=== PATIENT | male | born 1960 | race Caucasian/White ===

== ENCOUNTER → 2017-02-02 | Outpatient (CLI) | payer MEDICARE, OTHER ==
[2017-02-02 12:10] LABS: Basophils % (A) 1 %; CH 31.4; CHCM 35.3; Eosinophils # (A) 0.3 k/uL (0-0.7); Eosinophils % (A) 4 %; HCT 46.1 % (39.0-53.0); HDW 3.05; HGB 15.6 gm/dL (13.0-17.5); Luc # (Auto) 0.16; Luc % (Auto) 3; Lymphocytes # (A) 2.6 k/uL (1.0-4.8); Lymphocytes % (A) 40 %; MCH 30.2 pg (25.0-35.0); MCHC 33.7 g/dL (31.0-37.0); MCV 89.6 fL (80.0-100.0); Mean Platelet Volume 8.6; Monocytes # (A) 0.4 k/uL (0-1.0); Monocytes % (A) 6 %; Neutrophils # (A) 3.1 k/uL (1.3-7.7); Neutrophils % (A) 48 %; RBC 5.15 m/uL (4.30-5.90); WBC 6.5 k/uL (3.8-10.6); WBC (Perox) 6.37
[2017-02-02 13:29] LABS: ALT 46 U/L (21-72); AST 31 U/L (17-59); Alkaline Phosphatase 80 U/L (38-126); Anion Gap 13 mmol/L; Blood Urea Nitrogen 25 mg/dL (9-20); Calcium 9.5 mg/dL (8.4-10.2); Carbon Dioxide 29 mmol/L (22-30); Chloride 103 mmol/L (98-107); Glucose 124 mg/dL (74-99); Non-African American GFR(MDRD) >60 (>60 ml/min/1.73 sqM); Sodium 145 mmol/L (137-145); Total Bilirubin 0.4 mg/dL (0.2-1.3)
== END | disposition home or self-care (01) ==
LOC: LABWHC1 11:30
PROVIDERS: ATTEND Internal Medicine Infectious Disease
DX: B20 Human immunodeficiency virus [HIV] disease (principal)
CPT/HCPCS: 36415; 80053; 85025; 86360; 87536

== ENCOUNTER → 2017-06-01 | Outpatient (CLI) | payer MEDICARE, OTHER ==
[2017-06-01 11:47] LABS: Basophils % (A) 1 %; CH 30.1; CHCM 34.9; Eosinophils # (A) 0.2 k/uL (0-0.7); Eosinophils % (A) 3 %; HCT 42.9 % (39.0-53.0); HDW 3.12; HGB 14.5 gm/dL (13.0-17.5); Luc # (Auto) 0.17; Luc % (Auto) 3; Lymphocytes # (A) 1.6 k/uL (1.0-4.8); Lymphocytes % (A) 33 %; MCH 29.2 pg (25.0-35.0); MCHC 33.8 g/dL (31.0-37.0); MCV 86.5 fL (80.0-100.0); Mean Platelet Volume 7.5; Monocytes # (A) 0.4 k/uL (0-1.0); Monocytes % (A) 8 %; Neutrophils # (A) 2.5 k/uL (1.3-7.7); Neutrophils % (A) 53 %; RBC 4.96 m/uL (4.30-5.90); RDW 13.3 % (11.5-15.5); WBC 4.8 k/uL (3.8-10.6); WBC (Perox) 4.69
[2017-06-01 12:03] LABS: Potassium 5.2 mmol/L (3.5-5.1); Total Bilirubin 0.3 mg/dL (0.2-1.3); Total Protein 7.7 g/dL (6.3-8.2); Uric Acid 7.7 mg/dL (3.5-8.5)
[2017-06-04 14:52] LABS: LOG HIV Copies/mL 3.38 (<1.60)
== END | disposition home or self-care (01) ==
LOC: LABWHC1 10:58
PROVIDERS: ATTEND Internal Medicine Infectious Disease
DX: B20 Human immunodeficiency virus [HIV] disease (principal)
CPT/HCPCS: 36415; 80053; 84550; 85025; 86360; 87536

== ENCOUNTER 2017-09-06 19:36 | Emergency (ER) | payer MEDICARE, OTHER ==
[2017-09-06 19:48] VITALS: RESP 18; TEMP 97.3
[2017-09-06] MEDS ORDERED: ONDANSETRON 4 MG/2 ML VIAL IVP STA (20:26)
[2017-09-06] MEDS ORDERED: HYDROcodone/APAP 10-325MG 1 EACH TAB PO ONE (20:30)
--- NOTE | 2017-09-06 20:43 | ED ---
Fall HPI - General Chief Complaint: Fall Stated Complaint: Fall/head injury Time Seen by Provider: 09/06/17 19:50 Source: patient Mode of arrival: ambulatory - History of Present Illness Initial Comments: 57-year-old male, HIV positive last CD4 count 500 and viral load 600, presenting after a fall 1 week prior. Per patient he missed the toilet sitting down and ended up between that and a wall. He struck his lumbar spine as well as the lateral aspects of his bilateral fibs. He did hit his head but denies LOC or blood thinner usage. Denies neck pain. Since the fall he has been falling to the left when ambulating, having extreme bilateral rib pain making it difficult to sleep, as well as midline lumbar back pain worse with ambulating and not alleviated by anything. He admits to bilateral lower extremity weakness. He denies saddle anesthesia, loss of bowel or bladder control, or constipation/urinary retention. He states he also has had worsening chronic bilateral upper extremity tremors. Patient states he has a long history of chronic back pain for which he is to be treated with narcotics. Patient states he recently stopped taking all narcotics and has been trying to control his back pain with Motrin without relief. - Related Data Home Medications Medication Instructions Recorded Confirmed ARIPiprazole [Abilify] 2 mg PO HS 09/06/17 09/06/17 Betamethasone Valerate 1 applic TOPICAL DAILY PRN 09/06/17 09/06/17 [Betamethasone Valerate 0.1%] Bimatoprost [Lumigan .01% Ophth 1 drop BOTH EYES HS 09/06/17 09/06/17 Soln] Cetirizine HCl [Zyrtec] 10 mg PO HS 09/06/17 09/06/17 Diazepam 10 mg PO HS PRN 09/06/17 09/06/17 Diphenox-Atrop 2.5-0.025 mg 1 tab PO QID PRN 09/06/17 09/06/17 [Lomotil] Doxazosin [Cardura] 1 mg PO HS 09/06/17 09/06/17 Elviteg/Chasidy/Emtric/Tenofo Dis 1 tab PO HS 09/06/17 09/06/17 [Stribild Tablet] Furosemide [Lasix] 40 mg PO HS 09/06/17 09/06/17 Lisinopril [Zestril] 10 mg PO HS 09/06/17 09/06/17 Ondansetron HCl [Zofran] 8 mg PO BID PRN 09/06/17 09/06/17 diphenhydrAMINE HCL [Benadryl] 25 mg PO HS PRN 09/06/17 09/06/17 traZODone HCL [Desyrel] 200 mg PO BID 09/06/17 09/06/17 Previous Rx's Medication Instructions Recorded HYDROcodone/APAP 10-325MG [Fleming 1 tab PO Q6H PRN #12 tab 09/06/17 10-325] Allergies Allergy/AdvReac Type Severity Reaction Status Date / Time abacavir [From Ziagen] Allergy Anaphylaxis Verified 09/06/17 20:31 efavirenz [From Sustiva] Allergy Anaphylaxis Verified 09/06/17 20:31 hydrocodone Allergy Rapid Verified 09/06/17 20:31 [From Hysingla ER] Heart Rate sulfamethoxazole Allergy Abdominal Verified 09/06/17 20:31 [From Bactrim] Pain trimethoprim [From Bactrim] Allergy Abdominal Verified 09/06/17 20:31 Pain Review of Systems ROS Statement: Those systems with pertinent positive or pertinent negative responses have been documented in the HPI. Review of Systems Constitutional: Denies fever, chills Eyes: Denies change in vision, Denies pain Ears, nose, mouth, throat: Denies headaches, Denies sore throat Cardiovascular: Denies chest pain. Denies palpitations Respiratory: Denies shortness of breath, Denies cough Gastrointestinal: Denies abdominal pain. Denies nausea, vomiting, diarrhea. Genitourinary: Denies hematuria, Denies infections Musculoskeletal: Positive for rib pain, back pain. Integumentary: Denies rash Neurological: Positive for COBOS, weakness, tremor Psychiatric: Denies anxiety, Denies depression Hematologic/Lymphatic: Denies easy bleeding or bruising ROS Other: All systems not noted in ROS Statement are negative. Past Medical History Past Medical History: Asthma, Fibromyalgia, Hypertension, Osteoarthritis (OA), Prostate Disorder Additional Past Medical History / Comment(s): BPH, HIV, Tachycardia History of Any Multi-Drug Resistant Organisms: None Reported Past Surgical History: Hernia Repair Additional Past Surgical History / Comment(s): Mitral valve replacement, Past Psychological History: Anxiety Smoking Status: Light tobacco smoker Past Alcohol Use History: Rare Past Drug Use History: Marijuana General Exam - General Exam Comments Initial Comments: General: Awake, alert, No acute Distress HENT: Normocephalic. Atraumatic. Tenderness to palpation on left parietal region of head. Eyes: PERRL. EOMI. No scleral icterus. No injected conjunctiva Neck: Full ROM. No midline tenderness to palpation Chest/Lungs: Clear to auscultation bilaterally. No wheezing, rhonchi, or rales Cardiac: Regular rate, rhythm. No murmurs or rubs Abdomen/GI: Soft, nontender, nondistended. Ventral hernia. No rebound, guarding , or rigidity. Musculoskeletal: Full ROM. TTP bilateral ribs on the lateral lower aspects. No TTP thoracic spine. TTP midline lumbar spine and sacroiliac region Skin: Warm, dry, intact Neurologic: A/Ox3. BUE tremors. 1+ patellar reflexes bilaterally. No muscle atrophy or weakness. No finger to nose coordination deficit or rapid- alternating movement deficit. Antalgic gait. Limitations: no limitations Course Vital Signs 09/06/17 19:38 Temperature 97.3 F L Pulse Rate 82 Respiratory 18 Rate Blood Pressure 159/94 O2 Sat by Pulse 96 Oximetry Medical Decision Making - Medical Decision Making 57 yoM presenting one week after fall. On initial exam the patient is awake, alert, and in no acute distress. VSS. Discussed with patient the use of narcotic medication to control his pain since he states he "detoxed" from chronic narcotics prior. He denied history of abuse, but states he no longer wanted to be on them because they were not helping his chronic back pain. He was agreeable to being given narcotics while in the department. He states prior to the fall he was able to ambulate without difficulty. MAPS of patient show no narcotic or benzo rxs since the end of July. Patient's laboratory workup revealed thrombocytopenia but is otherwise unremarkable. CT head showed no acute process. CT lumbar spine shows patient's known degenerative disc disease but no acute fracture. CXR is negative for fracture as well. Discussed with the patient admission for his back pain versus outpatient follow up with his PCP and the new spinal specialist he plans on seeing. He would like at this time to follow up outpatient. Will given patient short course of Fleming for his pain. He has no symptoms concerning for cauda equina. No further emergent workup indicated. The patient was given return to ED instructions. They were instructed to follow up with their primary care provider. Stable for discharge at this time. - Lab Data Result diagrams: 09/06/17 20:45 09/06/17 20:45 Lab Results 09/06/17 09/06/17 Range/Units 20:45 20:45 WBC 5.1 (3.8-10.6) k/uL RBC 4.31 (4.30-5.90) m/uL Hgb 13.5 (13.0-17.5) gm/dL Hct 37.6 L (39.0-53.0) % MCV 87.3 (80.0-100.0) fL MCH 31.3 (25.0-35.0) pg MCHC 35.8 (31.0-37.0) g/dL RDW 15.6 H (11.5-15.5) % Plt Count 148 L (150-450) k/uL Neutrophils % 63 % Lymphocytes % 25 % Monocytes % 6 % Eosinophils % 3 % Basophils % 1 % Neutrophils # 3.2 (1.3-7.7) k/uL Lymphocytes # 1.3 (1.0-4.8) k/uL Monocytes # 0.3 (0-1.0) k/uL Eosinophils # 0.2 (0-0.7) k/uL Basophils # 0.0 (0-0.2) k/uL Hyperchromasia Slight Poikilocytosis Slight Sodium 145 (137-145) mmol/L Potassium 4.2 (3.5-5.1) mmol/L Chloride 105 (98-107) mmol/L Carbon Dioxide 32 H (22-30) mmol/L Anion Gap 8 mmol/L BUN 18 (9-20) mg/dL Creatinine 0.88 (0.66-1.25) mg/dL Est GFR (CKD-EPI)AfAm >90 (>60 ml/min/1.73 sqM) Est GFR (CKD-EPI)NonAf >90 (>60 ml/min/1.73 sqM) Glucose 101 H (74-99) mg/dL Calcium 9.0 (8.4-10.2) mg/dL Disposition Clinical Impression: Thrombocytopenia, Fall, Back pain, Rib pain on right side Disposition: HOME SELF-CARE Instructions: Acute Low Back Pain (ED), Thrombocytopenia (ED), Rib Contusion ( ED) Additional Instructions: Return to ED if weakness in lower extremities, loss of bowel or bladder control OR inability to urinate or defecate. Prescriptions: HYDROcodone/APAP 10-325MG [Fleming 10-325] 1 tab PO Q6H PRN #12 tab PRN Reason: Pain Referrals: Girma Pino MD [Primary Care Provider] - 1-2 days
[2017-09-06 21:03] LABS: Basophils % (A) 1 %; Eosinophils # (A) 0.2 k/uL (0-0.7); Eosinophils % (A) 3 %; HCT 37.6 % (39.0-53.0); HGB 13.5 gm/dL (13.0-17.5); Hyperchromasia Slight; Lymphocytes # (A) 1.3 k/uL (1.0-4.8); Lymphocytes % (A) 25 %; MCH 31.3 pg (25.0-35.0); MCHC 35.8 g/dL (31.0-37.0); MCV 87.3 fL (80.0-100.0); Mean Platelet Volume 8.2; Monocytes # (A) 0.3 k/uL (0-1.0); Monocytes % (A) 6 %; Neutrophils # (A) 3.2 k/uL (1.3-7.7); Neutrophils % (A) 63 %; Platelet Count 148 k/uL (150-450); Poikilocytosis Slight; RBC 4.31 m/uL (4.30-5.90); RDW 15.6 % (11.5-15.5); WBC 5.1 k/uL (3.8-10.6)
[2017-09-06 21:14] LABS: Anion Gap 8 mmol/L; Blood Urea Nitrogen 18 mg/dL (9-20); Carbon Dioxide 32 mmol/L (22-30); Chloride 105 mmol/L (98-107); Glucose 101 mg/dL (74-99); Potassium 4.2 mmol/L (3.5-5.1); Sodium 145 mmol/L (137-145)
--- NOTE | 2017-09-06 21:56 | CT ---
EXAMINATION TYPE: CT brain wo con DATE OF EXAM: 09/06/2017 COMPARISON: CT brain 02/25/2011 HISTORY: Fall, headache CT DLP: 1097 mGycm Automated exposure control for dose reduction was used. Helical acquisition through the brain FINDINGS: There is no hemorrhage or hydrocephalus. Cortical atrophy is stable. Calvarium is intact. Paranasal s inuses and mastoid air cells are within normal limits. Orbits are symmetric. IMPRESSION: NO ACUTE ABNORMALITY
--- NOTE | 2017-09-06 22:00 | CT ---
EXAMINATION TYPE: CT lumbar spine wo con DATE OF EXAM: 09/06/2017 COMPARISON: NONE HISTORY: Low back pain. CT DLP: 1030 mGycm Automated exposure control for dose reduction was used. An unenhanced CT of the lumbar spine was performed. Bone and soft tissue window settings are submitt ed as well as coronal and sagittal reconstructions. FINDINGS: Lumbar vertebral bodies show preserved height, alignment, and bone mineralization. L1-L2: Normal disc space height. No disc herniation protrusion or central stenosis. No facet joint arthropathy. No evidence for foraminal encroachment. L2-L3: Normal disc space height. No disc herniation protrusion or central stenosis. No facet joint arthropathy. No evidence for foraminal encroachment. L3-L4: Posterior extension of endplate disc complex causes anterolateral mass effect on the thecal sa c, no significant central canal stenosis. Circumferential extension of endplate disc complex causes s ome left-sided foraminal encroachment. There is facet arthropathy. L4-L5: Posterior extension of endplate disc complex causes mild anterior mass effect on the thecal sa c, and lateral extension of endplate disc complex encroaches somewhat on the neural foramina greater on the right. There is some facet arthropathy. L5-S1: Normal disc space height. No disc herniation protrusion or central stenosis. No facet joint arthropathy. No evidence for foraminal encroachment. IMPRESSION: No paraspinal masses are identified. Degenerative disc disease as described. Lumbar segments are inta ct.
--- NOTE | 2017-09-06 22:04 | XR ---
Bilateral RIBS with chest x-ray HISTORY: Trauma and pain Frontal view of the chest and 4 views of the left and 4 views of the right ribs submitted on 9 images . Correlation to chest x-ray 02/25/2011 Patient is post median sternotomy. Heart is enlarged. No evident airspace disease, pneumothorax, or p leural effusion. No displaced rib fracture. Old healed rib fractures present bilaterally. IMPRESSION: Difficult fracture is suspected clinically then bone scan could be performed for increase d sensitivity. No acute displaced rib fracture is evident. Cardiomegaly, postop changes.
[2017-09-06 22:44] VITALS: BP 140/78; PULSE 71
== END 2017-09-06 22:48 | disposition home or self-care (01) ==
LOC: EC 19:36
DX: R07.81 Pleurodynia (principal); M54.5 Low back pain; D69.6 Thrombocytopenia, unspecified; M62.81 Muscle weakness (generalized); Z21 Asymptomatic human immunodeficiency virus [HIV] infection status; N40.0 Benign prostatic hyperplasia without lower urinary tract symptoms; I10 Essential (primary) hypertension; F41.9 Anxiety disorder, unspecified; F17.200 Nicotine dependence, unspecified, uncomplicated; Z79.899 Other long term (current) drug therapy; Z88.2 Allergy status to sulfonamides; Z88.8 Allergy status to other drugs, medicaments and biological substances; W18.12XA Fall from or off toilet with subsequent striking against object, initial encounter
CPT/HCPCS: 96374 ×2; 99284 ×2; 36415; 80048; 85025; 71111; 72131; 70450; J2405

== ENCOUNTER → 2017-11-06 | Outpatient (CLI) | payer MEDICARE, OTHER ==
[2017-11-01 16:23] VITALS: BMI 37.5
[2017-11-06 11:53] VITALS: BP 115/87; PULSE 68; RESP 18
--- NOTE | 2017-11-06 12:39 | P.HPIM ---
History of Present Illness H&P Date: 11/06/17 Chief Complaint: low back pain This is a 57-year-old patient self-referred for chronic pain in low back, upper back, and legs. Patient had been taking medications from previous pain physician including fentanyl patch and Mehama, but has not been on these for some time as he is no longer seeing that physician's office ([facility]). Patient denies adverse drug effects from medications. Patient also denies new-onset weakness, bowel/bladder incontinence, or any other signs or symptoms of cauda equina syndrome. There are no signs of acute intoxication, and no indications of medication diversion or overuse. Patient notes that pain worsens significantly with driving and walking, and improves with rest, heat, and medication. Patient has used several types of medications for pain, including NSAIDS, OPIOIDS (fentanyl, Mehama), and BENZODIAZEPINES (Valium). Patient HAS NOT had surgery. Patient HAS had injections previously, including epidurals, RFAs, spinal cord stim trial, all of which gave him limited relief for 1-2 weeks. Patient HAS NOT had physical therapy recently. In addition to above, 13-point review of systems is also negative for chest pain , shortness of breath, changes in vision, changes in hearing, new onset weakness , abdominal pain, diarrhea, extreme fatigue, malaise, fever, skin changes, homicidal or suicidal ideation, or bowel or bladder incontinence. Vital Signs: Reviewed in EMR Gen: WDWN, AAOx3, NAD HEENT: NCAT, EOMI, hearing grossly normal Pulm: resp unlabored Abd: soft, NT, ND Neck: supple, trachea midline ROM in flexion lumbar spine: reduced ROM in extension lumbar spine: reduced Lumbar paravertebral tenderness: + Past Medical History Past Medical History: Asthma, Heart Failure, Fibromyalgia, Hypertension, Prostate Disorder Additional Past Medical History / Comment(s): BPH, HIV, GOUT, OCCASIONALLY HEART SKIPS BEAT, ENLARGED AORTA, CHRONIC SINUS H/A, ABD HERNIA, DDD, CHRONIC PAIN HIPS, BACK, NECK History of Any Multi-Drug Resistant Organisms: None Reported Past Surgical History: Heart Catheterization, Hernia Repair Additional Past Surgical History / Comment(s): Mitral valve REPAIR, RT INGUINAL HERNIA X2, LEFT INGUINAL, ABD. HERNIA, Past Anesthesia/Blood Transfusion Reactions: No Reported Reaction Past Psychological History: Anxiety Smoking Status: Current some day smoker Past Alcohol Use History: Occasional Additional Past Alcohol Use History / Comment(s): STATES SMOKES 4-5 CIGARETTES/ WEEK Past Drug Use History: Cocaine, Marijuana Additional Drug Use History / Comment(s): OCCASIONAL USE, cocaine use "25 years ago" Medications and Allergies Home Medications Medication Instructions Recorded Confirmed Type Betamethasone Valerate 1 applic TOPICAL DAILY PRN 09/06/17 11/06/17 History [Betamethasone Valerate 0.1%] Bimatoprost [Lumigan .01% Ophth 1 drop BOTH EYES HS 09/06/17 11/06/17 History Soln] Cetirizine HCl [Zyrtec] 10 mg PO HS 09/06/17 11/06/17 History Diazepam 10 mg PO BID 09/06/17 11/06/17 History Doxazosin [Cardura] 1 mg PO HS 09/06/17 11/06/17 History Elviteg/Chasidy/Emtric/Tenofo Dis 1 tab PO HS 09/06/17 11/06/17 History [Stribild Tablet] Furosemide [Lasix] 40 mg PO QAM 09/06/17 11/06/17 History Lisinopril [Zestril] 10 mg PO HS 09/06/17 11/06/17 History Ondansetron HCl [Zofran] 8 mg PO DAILY 09/06/17 11/06/17 History diphenhydrAMINE HCL [Benadryl] 25 mg PO HS PRN 09/06/17 11/06/17 History traZODone HCL [Desyrel] 100 - 200 mg PO HS 09/06/17 11/06/17 History Allopurinol [Zyloprim] 100 mg PO BID 11/01/17 11/06/17 History Metoprolol Succinate (ER) [Toprol 100 mg PO HS 11/01/17 11/06/17 History Xl] Salmeterol Xinafoate [Serevent 50 mcg IH BID PRN 11/01/17 11/06/17 History Diskus] Testosterone 1 applic TOPICAL DAILY 11/01/17 11/06/17 History valACYclovir HCL [Valtrex] 500 mg PO Q8HR PRN 11/01/17 11/06/17 History Allergies Allergy/AdvReac Type Severity Reaction Status Date / Time abacavir [From Ziagen] Allergy Anaphylaxis Verified 11/06/17 11:34 efavirenz [From Sustiva] Allergy Anaphylaxis Verified 11/06/17 11:34 hydrocodone Allergy Rapid Verified 11/06/17 11:34 [From Hysingla ER] Heart Rate sulfamethoxazole Allergy HIGH Verified 11/06/17 11:34 [From Bactrim] CREATININE LEVEL trimethoprim [From Bactrim] Allergy HIGH Verified 11/06/17 11:34 CREATININE morphine AdvReac Itching Verified 11/06/17 11:34 Physical Exam Vitals: Vital Signs Pulse Resp BP Pulse Ox 11/06/17 11:37 68 18 115/87 95 Results Comments: MRI lumbar spine dated 01/13/2016 demonstrates slight disc bulges at the L3-L4, and L5-S1 levels. There is mild to moderate facet arthropathy. L3-L4, L4-L5, and L5-S1 levels. There is also moderate bilateral neural foraminal stenosis at the L4-L5 and L5-S1 levels. There is no significant central canal stenosis at any level. There is also an annular tear noted at the L3-L4 level on the posterior aspect of the disc. Assessment and Plan (1) Neural foraminal stenosis of lumbar spine Current Visit: Yes Status: Chronic Code(s): M99.83 - OTHER BIOMECHANICAL LESIONS OF LUMBAR REGION SNOMED Code(s): 266024725413 (2) Lumbar spondylosis Current Visit: Yes Status: Chronic Code(s): M47.816 - SPONDYLOSIS W/O MYELOPATHY OR RADICULOPATHY, LUMBAR REGION SNOMED Code(s): 686293110 (3) Chronic pain syndrome Current Visit: Yes Status: Chronic Code(s): G89.4 - CHRONIC PAIN SYNDROME SNOMED Code(s): 553271317 Plan: 1. Explanation: Opioid and psychological risk scores were reviewed. Diagnoses , prognoses, and multiple treatment options including but not limited to physical therapy, interventional therapies, adjuvant medical therapies, narcotic medication therapies, and surgery were discussed with the patient and all questions were answered to the patient's satisfaction. 2. Opioid agreement: no opioids prescribed today 3. Counseling: The patient was counseled extensively on SMOKING CESSATION, BODY MASS INDEX, EXERCISE. Specifically, the patient was instructed regarding the importance of smoking cessation, weight control, and exercise in the context of both chronic pain and overall health. 4. Procedures: none, patient does not want any further injections 5. Consultations: none 6. Investigations: none 7. Medications: none prescribed 8. Morphine equivalents per day prescribed: zero 9. Disposition: f/u as needed. Patient has already had numerous interventions with Dr. Hooker and has had limited relief. PQRS measures: 1-Patient's medications are documented in the chart. 2-Tobacco use is positive, counseling given 3-Patient has not had a pneumococcal vaccine. 4-Advanced care planning discussed, patient unable to give. 5-Opioid contract NOT signed with the patient. 6-Pain positive, follow-up visit or procedure scheduled 7-Patient's blood pressure measured and documented, and patient will follow up with the primary care due to hypertension. 8-Patient's weight was measured, and body mass index ABOVE the normal limits, and counseling was done. Patient instructed to follow up with PCP. 9-Patient WAS NOT identified as an unhealthy alcohol user. Time with Patient: Greater than 30
== END | disposition home or self-care (01) ==
LOC: PNWHC3 11:10
PROVIDERS: ATTEND Anesthesiology
DX: G89.4 Chronic pain syndrome (principal); M99.83 Other biomechanical lesions of lumbar region; M47.816 Spondylosis without myelopathy or radiculopathy, lumbar region; F17.200 Nicotine dependence, unspecified, uncomplicated; Z88.5 Allergy status to narcotic agent; Z88.8 Allergy status to other drugs, medicaments and biological substances; Z88.2 Allergy status to sulfonamides; Z79.899 Other long term (current) drug therapy; Z79.1 Long term (current) use of non-steroidal anti-inflammatories (NSAID); Z79.891 Long term (current) use of opiate analgesic
CPT/HCPCS: 99211

== ENCOUNTER 2017-12-16 09:39 | Emergency (ER) | payer MEDICARE, OTHER ==
[2017-12-16 09:43] VITALS: BP 140/82; PULSE 80; RESP 18; TEMP 97.6
[2017-12-16] MEDS ORDERED: KETOROLAC 60 MG/2 ML VIAL IM STA (10:11)
--- NOTE | 2017-12-16 10:15 | ED ---
General Adult HPI - General Chief complaint: Extremity Problem,Nontraumatic Stated complaint: Ankle Pain Time Seen by Provider: 12/16/17 10:04 Source: patient, RN notes reviewed Mode of arrival: wheelchair Limitations: no limitations - History of Present Illness Initial comments: Patient 57-year-old male with significant past medical history for gout, presenting to the emergency room today with chief complaint of a gout flare up to the right ankle. He does admit that he's had gout in this location in the past. He states he began feeling a little yesterday he woke up this morning at 4 AM with increased pain. Patient does admit that he does take allopurinol for gout but ran out. He states he does have a new prescription. Patient denies any other complaints or symptoms. He states that the symptoms are consistent with his gout. Patient denies any recent fever, chills, shortness of breath, chest pain, back pain, abdominal pain, nausea or vomiting, numbness or tingling , headaches or visual changes, or any other complaints. - Related Data Home Medications Medication Instructions Recorded Confirmed Betamethasone Valerate 1 applic TOPICAL DAILY PRN 09/06/17 11/06/17 [Betamethasone Valerate 0.1%] Bimatoprost [Lumigan .01% Ophth 1 drop BOTH EYES HS 09/06/17 11/06/17 Soln] Cetirizine HCl [Zyrtec] 10 mg PO HS 09/06/17 11/06/17 Diazepam 10 mg PO BID 09/06/17 11/06/17 Doxazosin [Cardura] 1 mg PO HS 09/06/17 11/06/17 Elviteg/Chasidy/Emtric/Tenofo Dis 1 tab PO HS 09/06/17 11/06/17 [Stribild Tablet] Furosemide [Lasix] 40 mg PO QAM 09/06/17 11/06/17 Lisinopril [Zestril] 10 mg PO HS 09/06/17 11/06/17 Ondansetron HCl [Zofran] 8 mg PO DAILY 09/06/17 11/06/17 diphenhydrAMINE HCL [Benadryl] 25 mg PO HS PRN 09/06/17 11/06/17 traZODone HCL [Desyrel] 100 - 200 mg PO HS 09/06/17 11/06/17 Allopurinol [Zyloprim] 100 mg PO BID 11/01/17 11/06/17 Metoprolol Succinate (ER) [Toprol 100 mg PO HS 11/01/17 11/06/17 Xl] Salmeterol Xinafoate [Serevent 50 mcg IH BID PRN 11/01/17 11/06/17 Diskus] Testosterone 1 applic TOPICAL DAILY 11/01/17 11/06/17 valACYclovir HCL [Valtrex] 500 mg PO Q8HR PRN 11/01/17 11/06/17 Previous Rx's Medication Instructions Recorded Ibuprofen [Motrin] 800 mg PO Q6HR #30 tab 12/16/17 predniSONE 50 mg PO DAILY #5 tab 12/16/17 Allergies Allergy/AdvReac Type Severity Reaction Status Date / Time abacavir [From Ziagen] Allergy Anaphylaxis Verified 12/16/17 09:43 efavirenz [From Sustiva] Allergy Anaphylaxis Verified 12/16/17 09:43 hydrocodone Allergy Rapid Verified 12/16/17 09:43 [From Hysingla ER] Heart Rate sulfamethoxazole Allergy HIGH Verified 12/16/17 09:43 [From Bactrim] CREATININE LEVEL trimethoprim [From Bactrim] Allergy HIGH Verified 12/16/17 09:43 CREATININE morphine AdvReac Itching Verified 12/16/17 09:43 Review of Systems ROS Statement: Those systems with pertinent positive or pertinent negative responses have been documented in the HPI. ROS Other: All systems not noted in ROS Statement are negative. Past Medical History Past Medical History: Asthma, Heart Failure, Fibromyalgia, Hypertension, Prostate Disorder Additional Past Medical History / Comment(s): BPH, HIV, GOUT, OCCASIONALLY HEART SKIPS BEAT, ENLARGED AORTA, CHRONIC SINUS H/A, ABD HERNIA, DDD, CHRONIC PAIN HIPS, BACK, NECK History of Any Multi-Drug Resistant Organisms: None Reported Past Surgical History: Heart Catheterization, Hernia Repair Additional Past Surgical History / Comment(s): Mitral valve REPAIR, RT INGUINAL HERNIA X2, LEFT INGUINAL, ABD. HERNIA, Past Anesthesia/Blood Transfusion Reactions: No Reported Reaction Past Psychological History: Anxiety Smoking Status: Current some day smoker Past Alcohol Use History: Occasional Past Drug Use History: Cocaine, Marijuana General Exam - General Exam Comments Initial Comments: General: The patient is awake and alert, in no distress, and does not appear acutely ill. Eye: Pupils are equal, round and reactive to light, extra-ocular movements are intact. No nystagmus. There is normal conjunctiva bilaterally. No signs of icterus. Ears, nose, mouth and throat: There are moist mucous membranes and no oral lesions. Neck: The neck is supple, there is no tenderness or JVD. Musculoskeletal: Normal ROM. No redness or swelling. Does have tenderness over the medial aspect of the right ankle. Strength 5/5. Sensation intact. Pulses equal bilaterally 2+. Neurological: A&O x 3. CN II-XII intact, There are no obvious motor or sensory deficits. Coordination appears grossly intact. Speech is normal. Skin: Skin is warm and dry and no rashes or lesions are noted. Psychiatric: Cooperative, appropriate mood & affect, normal judgment. Limitations: no limitations Course Vital Signs 12/16/17 09:40 Temperature 97.6 F Pulse Rate 80 Respiratory 18 Rate Blood Pressure 140/82 O2 Sat by Pulse 95 Oximetry Medical Decision Making - Medical Decision Making Patient states that the symptoms are consistent with gout that is had in the past. He does admit that he takes allopurinol does have a prescription at home. He is advised to hold this until this flareup as past. Will be given a prescription for ibuprofen and steroids. Advised follow-up family doctor return for any other concerns. Disposition Clinical Impression: Gout attack Disposition: HOME SELF-CARE Condition: Good Instructions: Gout (ED) Additional Instructions: Please use medication as discussed. Please follow-up with family doctor in the next 2 days of symptoms have not improved. Please return to emergency room if the symptoms increase or worsen or for any other concerns. Prescriptions: Ibuprofen [Motrin] 800 mg PO Q6HR #30 tab predniSONE 50 mg PO DAILY #5 tab Is patient prescribed a controlled substance at d/c from ED?: No Referrals: Girma Pino MD [Primary Care Provider] - 1-2 days Time of Disposition: 10:14
== END 2017-12-16 10:27 | disposition home or self-care (01) ==
LOC: EC 09:39
DX: M10.9 Gout, unspecified (principal); J45.909 Unspecified asthma, uncomplicated; I11.0 Hypertensive heart disease with heart failure; I50.9 Heart failure, unspecified; M79.7 Fibromyalgia; F41.9 Anxiety disorder, unspecified; F17.200 Nicotine dependence, unspecified, uncomplicated; Z21 Asymptomatic human immunodeficiency virus [HIV] infection status; Z98.890 Other specified postprocedural states; Z79.899 Other long term (current) drug therapy; Z88.1 Allergy status to other antibiotic agents; Z88.2 Allergy status to sulfonamides; Z88.5 Allergy status to narcotic agent; Z88.8 Allergy status to other drugs, medicaments and biological substances
CPT/HCPCS: 99283; 96372; J1885

== ENCOUNTER 2018-01-14 10:04 | Inpatient (IN) | payer MEDICARE, OTHER ==
[2018-01-14] MEDS ORDERED: ASPIRIN 81 MG PO STA (10:40)
[2018-01-14] MEDS ORDERED: SODIUM CHLORIDE 0.9% 1,000 ML IV STA ×3 (10:40→12:37)
--- NOTE | 2018-01-14 10:45 | ED ---
General Adult HPI - General Chief complaint: Recheck/Abnormal Lab/Rx Stated complaint: low BP Time Seen by Provider: 01/14/18 10:29 Source: patient, RN notes reviewed Mode of arrival: ambulatory Limitations: no limitations - History of Present Illness Initial comments: Patient is a pleasant 57-year-old male presenting to the emergency Department with several complaints. Patient states he has had his blood pressure checked several times over the past several days with reported low numbers. Numbers have been as low as 80 systolic. Patient went to his eye doctor today and blood pressure was 85 systolic. Patient has been having increased fatigue and lightheadedness for the past several weeks. Patient has also had some chest discomfort over the past several weeks that does increase with exertion. Discomfort is mild at this time. Discomfort feels like tightness. Discomfort does sometimes related to the shoulders. Patient does get associated dyspnea with chest discomfort as well as nausea and sweating. No history of previous chest discomfort. Patient does have a history of previous valve repair as well as cardiomyopathy. Patient also is HIV positive - Related Data Home Medications Medication Instructions Recorded Confirmed Betamethasone Valerate 1 applic TOPICAL DAILY PRN 09/06/17 01/14/18 [Betamethasone Valerate 0.1%] Bimatoprost [Lumigan .01% Ophth 1 drop BOTH EYES HS 09/06/17 01/14/18 Soln] Cetirizine HCl [Zyrtec] 10 mg PO HS 09/06/17 01/14/18 Diazepam 10 mg PO HS 09/06/17 01/14/18 Doxazosin [Cardura] 1 mg PO HS 09/06/17 01/14/18 Elviteg/Chasidy/Emtric/Tenofo Dis 1 tab PO HS 09/06/17 01/14/18 [Stribild Tablet] Furosemide [Lasix] 40 mg PO HS 09/06/17 01/14/18 Lisinopril [Zestril] 10 mg PO HS 09/06/17 01/14/18 Ondansetron HCl [Zofran] 8 mg PO DAILY PRN 09/06/17 01/14/18 traZODone HCL [Desyrel] 200 mg PO HS 09/06/17 01/14/18 Allopurinol [Zyloprim] 100 mg PO BID 11/01/17 01/14/18 Metoprolol Succinate (ER) [Toprol 100 mg PO HS 11/01/17 01/14/18 Xl] Salmeterol Xinafoate [Serevent 1 puff INHALATION RT-BID PRN 11/01/17 01/14/18 Diskus] Testosterone 1 applic TOPICAL DAILY 11/01/17 01/14/18 valACYclovir HCL [Valtrex] 500 mg PO Q8HR PRN 11/01/17 01/14/18 Esomeprazole Magnesium [NexIUM] 40 mg PO HS 01/14/18 01/14/18 Allergies Allergy/AdvReac Type Severity Reaction Status Date / Time abacavir [From Ziagen] Allergy Anaphylaxis Verified 01/14/18 11:03 efavirenz [From Sustiva] Allergy Anaphylaxis Verified 01/14/18 11:03 hydrocodone Allergy Rapid Verified 01/14/18 11:03 [From Hysingla ER] Heart Rate sulfamethoxazole Allergy HIGH Verified 01/14/18 11:03 [From Bactrim] CREATININE LEVEL trimethoprim [From Bactrim] Allergy HIGH Verified 01/14/18 11:03 CREATININE morphine AdvReac Itching Verified 01/14/18 11:03 Review of Systems ROS Statement: Those systems with pertinent positive or pertinent negative responses have been documented in the HPI. ROS Other: All systems not noted in ROS Statement are negative. Constitutional: Denies: fever ENT: Denies: ear pain Respiratory: Reports: dyspnea. Denies: cough Cardiovascular: Reports: chest pain, palpitations Endocrine: Reports: fatigue Gastrointestinal: Reports: abdominal pain (Chronic and unchanged), nausea Genitourinary: Denies: dysuria Musculoskeletal: Reports: arthralgia (Chronic) Skin: Denies: rash Neurological: Denies: headache, confusion Past Medical History Past Medical History: Asthma, Heart Failure, Fibromyalgia, Hypertension, Prostate Disorder Additional Past Medical History / Comment(s): BPH, HIV, GOUT, OCCASIONALLY HEART SKIPS BEAT, ENLARGED AORTA, CHRONIC SINUS H/A, ABD HERNIA, DDD, CHRONIC PAIN HIPS, BACK, NECK History of Any Multi-Drug Resistant Organisms: None Reported Past Surgical History: Heart Catheterization, Hernia Repair Additional Past Surgical History / Comment(s): Mitral valve REPAIR, RT INGUINAL HERNIA X2, LEFT INGUINAL, ABD. HERNIA, Past Anesthesia/Blood Transfusion Reactions: No Reported Reaction Past Psychological History: Anxiety Smoking Status: Current some day smoker Past Alcohol Use History: Occasional Past Drug Use History: Cocaine, Marijuana General Exam Limitations: no limitations General appearance: alert, in no apparent distress Head exam: Present: atraumatic Eye exam: Present: normal appearance, PERRL ENT exam: Present: normal oropharynx Neck exam: Present: normal inspection Respiratory exam: Present: normal lung sounds bilaterally. Absent: chest wall tenderness Cardiovascular Exam: Present: regular rate, normal rhythm, normal heart sounds Expanded Peripheral pulses: 2+: Radial (R), Radial (L), Posterior Tibialis (R), Posterior Tibialis (L) GI/Abdominal exam: Present: soft, tenderness (Mild epigastric tenderness to palpation which patient states is chronic). Absent: distended, pulsatile mass Extremities exam: Present: tenderness (Minimal discomfort recurred and left ankle). Absent: pedal edema, calf tenderness Neurological exam: Present: alert Psychiatric exam: Present: normal affect, normal mood Skin exam: Present: normal color Course Vital Signs 01/14/18 01/14/18 10:20 10:56 Temperature 97.8 F Pulse Rate 67 Pulse Rate [ 85 Coremaker Experimental ] Respiratory 18 Rate Blood Pressure 99/64 O2 Sat by Pulse 97 Oximetry EKG Findings - EKG Comments: EKG Findings:: Normal sinus rhythm 64. IN 166. QRS 102. QT 424. QTC 437. Normal axis. Normal QRS. No acute ST change. Medical Decision Making - Medical Decision Making Patient reevaluated and resting comfortably in bed. Fluid bolus ordered. Case discussed with Dr. Gandhi, who will admit for hospital call. Consults will be placed for Dr. Pino as well as nephrology. Patient was updated on results and plan. - Lab Data Result diagrams: 01/14/18 11:02 01/14/18 11:02 Lab Results 01/14/18 01/14/18 01/14/18 Range/Units 11:02 11:02 11:02 WBC 5.4 (3.8-10.6) k/uL RBC 4.66 (4.30-5.90) m/uL Hgb 14.3 (13.0-17.5) gm/dL Hct 41.9 (39.0-53.0) % MCV 89.9 (80.0-100.0) fL MCH 30.7 (25.0-35.0) pg MCHC 34.2 (31.0-37.0) g/dL RDW 14.2 (11.5-15.5) % Plt Count 174 (150-450) k/uL Neutrophils % 55 % Lymphocytes % 34 % Monocytes % 6 % Eosinophils % 2 % Basophils % 1 % Neutrophils # 3.0 (1.3-7.7) k/uL Lymphocytes # 1.8 (1.0-4.8) k/uL Monocytes # 0.3 (0-1.0) k/uL Eosinophils # 0.1 (0-0.7) k/uL Basophils # 0.0 (0-0.2) k/uL PT (9.0-12.0) sec INR (<1.2) APTT (22.0-30.0) sec D-Dimer (<0.60) mg/L FEU Sodium 142 (137-145) mmol/L Potassium 4.4 (3.5-5.1) mmol/L Chloride 107 (98-107) mmol/L Carbon Dioxide 20 L (22-30) mmol/L Anion Gap 15 mmol/L BUN 65 H (9-20) mg/dL Creatinine 6.94 H* (0.66-1.25) mg/dL Est GFR (CKD-EPI)AfAm 9 (>60 ml/min/1.73 sqM) Est GFR (CKD-EPI)NonAf 8 (>60 ml/min/1.73 sqM) Glucose 110 H (74-99) mg/dL Uric Acid 15.7 H* (3.5-8.5) mg/dL Calcium 8.0 L (8.4-10.2) mg/dL Magnesium 2.2 (1.6-2.3) mg/dL Total Bilirubin 0.3 (0.2-1.3) mg/dL AST 27 (17-59) U/L ALT 31 (21-72) U/L Alkaline Phosphatase 83 (38-126) U/L Total Creatine Kinase 487 H (55-170) U/L CK-MB (CK-2) 3.3 H* (0.0-2.4) ng/mL CK-MB (CK-2) Rel Index 0.7 Troponin I <0.012 (0.000-0.034) ng/mL Total Protein 7.5 (6.3-8.2) g/dL Albumin 4.4 (3.5-5.0) g/dL 01/14/18 Range/Units 11:02 WBC (3.8-10.6) k/uL RBC (4.30-5.90) m/uL Hgb (13.0-17.5) gm/dL Hct (39.0-53.0) % MCV (80.0-100.0) fL MCH (25.0-35.0) pg MCHC (31.0-37.0) g/dL RDW (11.5-15.5) % Plt Count (150-450) k/uL Neutrophils % % Lymphocytes % % Monocytes % % Eosinophils % % Basophils % % Neutrophils # (1.3-7.7) k/uL Lymphocytes # (1.0-4.8) k/uL Monocytes # (0-1.0) k/uL Eosinophils # (0-0.7) k/uL Basophils # (0-0.2) k/uL PT 9.3 (9.0-12.0) sec INR 0.9 (<1.2) APTT 24.3 (22.0-30.0) sec D-Dimer 0.94 H (<0.60) mg/L FEU Sodium (137-145) mmol/L Potassium (3.5-5.1) mmol/L Chloride (98-107) mmol/L Carbon Dioxide (22-30) mmol/L Anion Gap mmol/L BUN (9-20) mg/dL Creatinine (0.66-1.25) mg/dL Est GFR (CKD-EPI)AfAm (>60 ml/min/1.73 sqM) Est GFR (CKD-EPI)NonAf (>60 ml/min/1.73 sqM) Glucose (74-99) mg/dL Uric Acid (3.5-8.5) mg/dL Calcium (8.4-10.2) mg/dL Magnesium (1.6-2.3) mg/dL Total Bilirubin (0.2-1.3) mg/dL AST (17-59) U/L ALT (21-72) U/L Alkaline Phosphatase (38-126) U/L Total Creatine Kinase (55-170) U/L CK-MB (CK-2) (0.0-2.4) ng/mL CK-MB (CK-2) Rel Index Troponin I (0.000-0.034) ng/mL Total Protein (6.3-8.2) g/dL Albumin (3.5-5.0) g/dL - Radiology Data Radiology results: image reviewed (Chest x-ray shows no acute process) Disposition Clinical Impression: Acute renal failure (ARF), Chest pain Disposition: ADMITTED IP TO THIS [facility] Condition: Serious Is patient prescribed a controlled substance at d/c from ED?: No Referrals: Girma Pino MD [Primary Care Provider] - 1-2 days Decision Time: 12:38
[2018-01-14 11:13] LABS: Basophils % (A) 1 %; Eosinophils # (A) 0.1 k/uL (0-0.7); Eosinophils % (A) 2 %; HCT 41.9 % (39.0-53.0); HGB 14.3 gm/dL (13.0-17.5); Lymphocytes # (A) 1.8 k/uL (1.0-4.8); Lymphocytes % (A) 34 %; MCH 30.7 pg (25.0-35.0); MCHC 34.2 g/dL (31.0-37.0); MCV 89.9 fL (80.0-100.0); Mean Platelet Volume 8.7; Monocytes # (A) 0.3 k/uL (0-1.0); Monocytes % (A) 6 %; Neutrophils % (A) 55 %; Platelet Count 174 k/uL (150-450); RBC 4.66 m/uL (4.30-5.90); RDW 14.2 % (11.5-15.5); WBC 5.4 k/uL (3.8-10.6)
[2018-01-14 11:32] LABS: INR 0.9 (<1.2); Partial Thromboplastin Time 24.3 sec (22.0-30.0); Prothrombin Time 9.3 sec (9.0-12.0)
[2018-01-14 11:45] LABS: Albumin 4.4 g/dL (3.5-5.0); Creatine Kinase 487 U/L (55-170); Magnesium 2.2 mg/dL (1.6-2.3); Potassium 4.4 mmol/L (3.5-5.1); Total Bilirubin 0.3 mg/dL (0.2-1.3); Total Protein 7.5 g/dL (6.3-8.2)
[2018-01-14 11:52] LABS: Uric Acid 15.7 mg/dL (3.5-8.5)
[2018-01-14 11:57] LABS: Troponin I <0.012 ng/mL (0.000-0.034)
[2018-01-14 12:03] LABS: Creatine Kinase MB 3.3 ng/mL (0.0-2.4)
[2018-01-14 12:08] LABS: D-Dimer 0.94 mg/L FEU (<0.60)
--- NOTE | 2018-01-14 12:12 | XR ---
EXAMINATION TYPE: XR chest 2V DATE OF EXAM: 01/14/2018 COMPARISON: Prior chest 09/06/2017 HISTORY: Chest pain TECHNIQUE: Frontal and lateral views of the chest are obtained. FINDINGS: Patient is post median sternotomy. There are overlying cardiac leads. There is no focal air space opacity, pleural effusion, or pneumothorax seen. The cardiac silhouette size is within normal limits. The osseous structures are intact, some slight cortical irregularity of the posterior righ t eighth rib is stable. Increased AP diameter chest could be indicative of underlying COPD. IMPRESSION: No acute cardiopulmonary process.
[2018-01-14] MEDS ORDERED: NALOXONE 0.4 MG/ML 1 ML VIAL IV PRN (12:39)
[2018-01-14 13:21] LABS: Amorphous Sediment,Urine Rare /hpf; Appearance,Urine Cloudy (Clear); Bilirubin,Urine Negative (Negative); Blood,Urine Small (Negative); Color,Urine Yellow; Glucose,Urine (UA) 2+ (Negative); Hyaline Casts,Urine 3 /lpf (0-2); Ketones,Urine Negative (Negative); Leukocyte Esterase,Urine Negative (Negative); Mucus,Urine Rare /hpf; Nitrite,Urine Negative (Negative); PH, Urine 5.5 (5.0-8.0); Protein,Urine 2+ (Negative); Specific Gravity,Urine 1.014 (1.001-1.035); Uric Acid Crystals,Urine Few /hpf; Urobilinogen,Urine <2.0 mg/dL (<2.0); WBC,Urine 1 /hpf (0-5)
--- NOTE | 2018-01-14 13:59 | US ---
EXAMINATION TYPE: US kidneys/renal and bladder DATE OF EXAM: 01/14/2018 COMPARISON: NONE CLINICAL HISTORY: Acute renal failure EXAM MEASUREMENTS: Right Kidney: 12.7 x 5.9 x 5.4 cm Left Kidney: 11.7 x 5.7 x 5.5 cm Right Kidney: No hydronephrosis or masses seen Left Kidney: No hydronephrosis or masses seen Bladder: not seen, patient has horton Cortical medullary differentiation is maintained. No pathologic calcification. Coarse echotexture within the liver could be due to hepatic steatosis, there is no ascites. IMPRESSION: Renal sizes as described.
--- NOTE | 2018-01-14 14:04 | NM ---
EXAMINATION TYPE: NM pul vent and perfuse DATE OF EXAM: 01/14/2018 COMPARISON: Chest x-ray 01/14/2018 HISTORY: Dyspnea TECHNIQUE: Utilizing inhalation of 70.2 mCi Tc 99m DTPA aerosol and intravenous injection of 5.27 mC i of Tc 99m MAA, ventilation and perfusion images are acquired post injection in multiple projections . FINDINGS: Normal radiotracer distribution is noted in the lungs. There is no evidence of mismatched defects. IMPRESSION: Low probability for pulmonary embolism.
[2018-01-14] MEDS: SODIUM CHLORIDE 0.9% 1,000 ML IV SCH ×2 (14:09→20:06)
[2018-01-14] MEDS ORDERED: HYDROcodone/APAP 5-325MG 1 EACH TAB PO PRN (15:11)
[2018-01-14] MEDS ORDERED: MD COMMUNICATION TO PHARMACY 1 EACH MISC PO PRN (20:50)
[2018-01-14] MEDS ORDERED: STRIBILD PO SCH (20:53)
--- NOTE | 2018-01-14 20:58 | P.CONS ---
History of Present Illness - Reason for Consult Consult date: 01/14/18 - Chief Complaint Weakness - History of Present Illness 57-year-old male known to the office for many years for the care of his HIV infection. He has most recently been on Stribild and tolerating it well , kilograms head some difficulty with compliance and his CD4 count has dropped a bit over time last check was 315. On the last evaluation the viral load was 2400 and he has vacillated over time. He's had no new HIV-related infections. He however has a known history of underlying cardiovascular disease with mitral valve repair performed [facility] several years ago. He does follow there for his hypertension and hypercholesterolemia. He is having difficulties with increasing weight over time and poor activity level. He has continued to smoke especially recently. He has a known history of gout and was in the emergency room several months ago because he ran out of his medication. He was also seen in the pain clinic because of difficulties with his chronic pain and a history of dependence on narcotics. At this time he feels very poorly and has for about the last week. He noticed a marked decrease in his appetite. She's had no severe nausea or emesis but food which was not appealing. We are trying to drink some fluid but noticed that his urine output was falling. He was to have some routine blood work performed for follow-up evaluation and his creatinine on August 2017 was 0.88 and on 01/14/2018 was 7.18. The patient relates she's had one prior bouts of some renal failure when he took some Bactrim and his creatinine elevated at that place never had this extensive renal failure in the past. As noted he feels very poorly with significant malaise fatigue and nausea without emesis. Patient was also noted to have some relative hypotension and was having some intermittent chest pressure Review of Systems As noted patient feels poorly generalized malaise and anorexia HEENT:Denies headache or acute visual change. Denies sinus or mouth discomforts. Denies neck stiffness or pain. Denies significant oral cavity pain. Denies difficulty on swallowing. Lungs: Denies significant shortness of breath, cough, sputum production, or hemoptysis. Cardiovascular: Denies significant shortness of breath, chest pain, chest wall pain, orthopnea, dyspnea on exertion, syncope Gastrointestinal: Anorexia with some weight loss no hematemesis melena or hematochezia and no diarrhea. Musculoskeletal: Chronic back pain chronic myalgias or arthralgias chronic gout Skin: Denies new rash or lesions. No new ulcers or wounds are related.. Neuro: Denies headache or visual change. Denies any new onset weakness or difficulty with ambulation. Denies falls or seizures. Psychiatric: Chronic anxiety and depression Endocrine: Worsening fatigue and some weight loss with decreased appetite Past Medical History Past Medical History: Asthma, Heart Failure, Fibromyalgia, GERD/Reflux, Hypertension, Prostate Disorder Additional Past Medical History / Comment(s): Cardiomyopathy, enlarged aorta, occasionally heart "skips a beat", HIV positive, past HTN and recently low blood pressures, BPH, R ankle gout, chronic nausea, bilateral glaucoma, DDD, chronic pain syndrome, chronic low back and bilateral hip pain and occasional cervical pain, DDD, lumbar stenosis/spondylosis, abdominal hernia History of Any Multi-Drug Resistant Organisms: None Reported Past Surgical History: Heart Catheterization, Hernia Repair, Orthopedic Surgery Additional Past Surgical History / Comment(s): Mitral valve repair at [facility], R inguinal hernia x2, L inguinal hernia, epidural injections to back, hip injections, RFAs, spinal cord stimulator trial. Past Anesthesia/Blood Transfusion Reactions: No Reported Reaction Additional Psychological History / Comment(s): He lives with his significant other, he is healthy. Pet dog in the home. No experience no international travel. Positive tobacco use. History of extensive alcohol use. History of narcotic dependence Smoking Status: Light tobacco smoker - Past Family History Father Additional Family Medical History / Comment(s): Father was injured at work and of complication during his hospitalization. Mother Additional Family Medical History / Comment(s): Mother is from alcoholism. Medications and Allergies Home Medications and Allergies Comment(s): Current Medications Hydrocodone Bitart/Acetaminophen (Garden 5-325) 1 each PO ONCE PRN PRN Reason: Pain Last Admin: 01/14/18 15:26 Dose: 1 each Sodium Chloride (Saline 0.9%) 1,000 mls @ 150 mls/hr IV .Q6H40M ALEX Last Admin: 01/14/18 20:06 Dose: 150 mls/hr Naloxone HCl (Narcan) 0.2 mg IV Q2M PRN PRN Reason: Opioid Reversal Home Medications Medication Instructions Recorded Confirmed Type Betamethasone Valerate 1 applic TOPICAL DAILY PRN 09/06/17 01/14/18 History [Betamethasone Valerate 0.1%] Bimatoprost [Lumigan .01% Ophth 1 drop BOTH EYES HS 09/06/17 01/14/18 History Soln] Cetirizine HCl [Zyrtec] 10 mg PO HS 09/06/17 01/14/18 History Diazepam 10 mg PO HS 09/06/17 01/14/18 History Doxazosin [Cardura] 1 mg PO HS 09/06/17 01/14/18 History Elviteg/Chasidy/Emtric/Tenofo Dis 1 tab PO HS 09/06/17 01/14/18 History [Stribild Tablet] Furosemide [Lasix] 40 mg PO HS 09/06/17 01/14/18 History Lisinopril [Zestril] 10 mg PO HS 09/06/17 01/14/18 History Ondansetron HCl [Zofran] 8 mg PO DAILY PRN 09/06/17 01/14/18 History traZODone HCL [Desyrel] 200 mg PO HS 09/06/17 01/14/18 History Allopurinol [Zyloprim] 100 mg PO BID 11/01/17 01/14/18 History Metoprolol Succinate (ER) [Toprol 100 mg PO HS 11/01/17 01/14/18 History Xl] Salmeterol Xinafoate [Serevent 1 puff INHALATION RT-BID PRN 11/01/17 01/14/18 History Diskus] Testosterone 1 applic TOPICAL DAILY 11/01/17 01/14/18 History valACYclovir HCL [Valtrex] 500 mg PO Q8HR PRN 11/01/17 01/14/18 History Esomeprazole Magnesium [NexIUM] 40 mg PO HS 01/14/18 01/14/18 History Allergies Allergy/AdvReac Type Severity Reaction Status Date / Time abacavir [From Ziagen] Allergy Anaphylaxis Verified 01/14/18 11:03 efavirenz [From Sustiva] Allergy Anaphylaxis Verified 01/14/18 11:03 hydrocodone Allergy Rapid Verified 01/14/18 11:03 [From Hysingla ER] Heart Rate sulfamethoxazole Allergy HIGH Verified 01/14/18 11:03 [From Bactrim] CREATININE LEVEL trimethoprim [From Bactrim] Allergy HIGH Verified 01/14/18 11:03 CREATININE morphine AdvReac Itching Verified 01/14/18 11:03 Physical Exam Vitals: Vital Signs Temp Pulse Pulse Resp BP BP Pulse Ox 01/14/18 17:32 97.6 F 58 L 18 103/65 96 01/14/18 16:57 97.3 F L 59 L 18 114/68 96 01/14/18 15:09 58 L 20 107/73 100 01/14/18 14:06 96.7 F L 57 L 18 101/55 100 01/14/18 12:40 59 L 20 82/53 100 01/14/18 10:56 85 01/14/18 10:20 97.8 F 67 18 99/64 97 Intake and Output 01/14/18 01/14/18 01/14/18 06:59 14:59 22:59 Intake Total 300 Output Total 800 Balance -800 300 Intake: Intake, IV Titration 300 Amount Sodium Chloride 0.9% 1, 300 000 ml @ 150 mls/hr IV . Q6H40M [facility] Rx#:[id number] Output: Urine 800 Uretheral (Ocampo) 800 Other: Voiding Method Indwelling Catheter Weight 101.968 kg 57-year-old male who has difficulties with obesity presents feeling very poorly HEENT: Anicteric conjunctiva are pink and moist nasal mucosa grossly intact without significant lesions, there is no thrush. Mouth is dry Neck: The neck is supple without significant lymphadenopathy or thyromegaly. Lungs: Good bilateral air entry without significant crackles or wheezing. There is no significant bronchial sounds. There is no egophony or dullness. Heart: Regular without arrhythmia, no cervical murmur click or rub PMI is nondisplaced audible S1 and S2 Abdomen: Obese, Positive bowel sounds soft and nontender without palpable masses or organomegaly. There was no guarding or rebound. Extremities: The upper extremities have excellent pulses they are symmetric, no significant petechiae or telangiectasia. No splinter hemorrhages were noted. The lower extremities have trace edema. The peripheral pulses were 2+ and symmetric. Neuro: Awake alert oriented to person place and time. There are no acute new gross focal sensory motor deficits. Results CBC & Chem 7: 01/14/18 11:02 01/14/18 11:02 Labs: Abnormal Lab Results - Last 24 Hours (Table) 01/14/18 01/14/18 01/14/18 Range/Units 11:02 11:02 11:02 D-Dimer 0.94 H (<0.60) mg/L FEU Carbon Dioxide 20 L (22-30) mmol/L BUN 65 H (9-20) mg/dL Creatinine 6.94 H* (0.66-1.25) mg/dL Glucose 110 H (74-99) mg/dL Uric Acid 15.7 H* (3.5-8.5) mg/dL Calcium 8.0 L (8.4-10.2) mg/dL Total Creatine Kinase 487 H (55-170) U/L CK-MB (CK-2) 3.3 H* (0.0-2.4) ng/mL Urine Protein (Negative) Urine Glucose (UA) (Negative) Urine Blood (Negative) Uric Acid Crystals (None) /hpf Amorphous Sediment (None) /hpf Hyaline Casts (0-2) /lpf Urine Mucus (None) /hpf 01/14/18 Range/Units 13:01 D-Dimer (<0.60) mg/L FEU Carbon Dioxide (22-30) mmol/L BUN (9-20) mg/dL Creatinine (0.66-1.25) mg/dL Glucose (74-99) mg/dL Uric Acid (3.5-8.5) mg/dL Calcium (8.4-10.2) mg/dL Total Creatine Kinase (55-170) U/L CK-MB (CK-2) (0.0-2.4) ng/mL Urine Protein 2+ H (Negative) Urine Glucose (UA) 2+ H (Negative) Urine Blood Small H (Negative) Uric Acid Crystals Few H (None) /hpf Amorphous Sediment Rare H (None) /hpf Hyaline Casts 3 H (0-2) /lpf Urine Mucus Rare H (None) /hpf Laboratory Results WBC 5.4 k/uL (3.8-10.6) 01/14/18 11:02 RBC 4.66 m/uL (4.30-5.90) 01/14/18 11:02 Hgb 14.3 gm/dL (13.0-17.5) 01/14/18 11:02 Hct 41.9 % (39.0-53.0) 01/14/18 11:02 MCV 89.9 fL (80.0-100.0) 01/14/18 11:02 MCH 30.7 pg (25.0-35.0) 01/14/18 11:02 MCHC 34.2 g/dL (31.0-37.0) 01/14/18 11:02 RDW 14.2 % (11.5-15.5) 01/14/18 11:02 Plt Count 174 k/uL (150-450) 01/14/18 11:02 Neutrophils % 55 % 01/14/18 11:02 Lymphocytes % 34 % 01/14/18 11:02 Monocytes % 6 % 01/14/18 11:02 Eosinophils % 2 % 01/14/18 11:02 Basophils % 1 % 01/14/18 11:02 Neutrophils # 3.0 k/uL (1.3-7.7) 01/14/18 11:02 Lymphocytes # 1.8 k/uL (1.0-4.8) 01/14/18 11:02 Monocytes # 0.3 k/uL (0-1.0) 01/14/18 11:02 Eosinophils # 0.1 k/uL (0-0.7) 01/14/18 11:02 Basophils # 0.0 k/uL (0-0.2) 01/14/18 11:02 PT 9.3 sec (9.0-12.0) 01/14/18 11:02 INR 0.9 (<1.2) 01/14/18 11:02 APTT 24.3 sec (22.0-30.0) 01/14/18 11:02 D-Dimer 0.94 mg/L FEU (<0.60) H 01/14/18 11:02 Sodium 142 mmol/L (137-145) 01/14/18 11:02 Potassium 4.4 mmol/L (3.5-5.1) 01/14/18 11:02 Chloride 107 mmol/L (98-107) 01/14/18 11:02 Carbon Dioxide 20 mmol/L (22-30) L 01/14/18 11:02 Anion Gap 15 mmol/L 01/14/18 11:02 BUN 65 mg/dL (9-20) H 01/14/18 11:02 Creatinine 6.94 mg/dL (0.66-1.25) H* 01/14/18 11:02 Est GFR (CKD-EPI)AfAm 9 (>60 ml/min/1.73 sqM) 01/14/18 11:02 Est GFR (CKD-EPI)NonAf 8 (>60 ml/min/1.73 sqM) 01/14/18 11:02 Glucose 110 mg/dL (74-99) H 01/14/18 11:02 Uric Acid 15.7 mg/dL (3.5-8.5) H* 01/14/18 11:02 Calcium 8.0 mg/dL (8.4-10.2) L 01/14/18 11:02 Magnesium 2.2 mg/dL (1.6-2.3) 01/14/18 11:02 Total Bilirubin 0.3 mg/dL (0.2-1.3) 01/14/18 11:02 AST 27 U/L (17-59) 01/14/18 11:02 ALT 31 U/L (21-72) 01/14/18 11:02 Alkaline Phosphatase 83 U/L (38-126) 01/14/18 11:02 Total Creatine Kinase 487 U/L (55-170) H 01/14/18 11:02 CK-MB (CK-2) 3.3 ng/mL (0.0-2.4) H* 01/14/18 11:02 CK-MB (CK-2) Rel Index 0.7 01/14/18 11:02 Troponin I <0.012 ng/mL (0.000-0.034) 01/14/18 11:02 Total Protein 7.5 g/dL (6.3-8.2) 01/14/18 11:02 Albumin 4.4 g/dL (3.5-5.0) 01/14/18 11:02 Urine Color Yellow 01/14/18 13:01 Urine Appearance Cloudy (Clear) 01/14/18 13:01 Urine pH 5.5 (5.0-8.0) 01/14/18 13:01 Ur Specific [place] 1.014 (1.001-1.035) 01/14/18 13:01 Urine Protein 2+ (Negative) H 01/14/18 13:01 Urine Glucose (UA) 2+ (Negative) H 01/14/18 13:01 Urine Ketones Negative (Negative) 01/14/18 13:01 Urine Blood Small (Negative) H 01/14/18 13:01 Urine Nitrite Negative (Negative) 01/14/18 13:01 Urine Bilirubin Negative (Negative) 01/14/18 13:01 Urine Urobilinogen <2.0 mg/dL (<2.0) 01/14/18 13:01 Ur Leukocyte Esterase Negative (Negative) 01/14/18 13:01 Urine WBC 1 /hpf (0-5) 01/14/18 13:01 Uric Acid Crystals Few /hpf (None) H 01/14/18 13:01 Amorphous Sediment Rare /hpf (None) H 01/14/18 13:01 Hyaline Casts 3 /lpf (0-2) H 01/14/18 13:01 Urine Mucus Rare /hpf (None) H 01/14/18 13:01 Assessment and Plan (1) Acute renal failure (ARF) Narrative/Plan: 57-year-old male presents to Hospital not feeling well for several days anorexia with nausea and increasing weakness. A routine blood draw earlier today was no evidence of acute renal failure and was advised admission to the hospital. The patient has now been admitted and imaging studies reveal evidence of no acute hydronephrosis, VQ scan was performed with no evidence of pulmonary embolus and a chest x-ray was negative. As noted creatinine is markedly elevated at 7.18 and uric acid was greater than 15. Patient receiving hydration and workup in process for etiology of the acute renal failure. At this time is feeling somewhat better. No evidence of any obstructive process. The patient does have underlying HIV infection and his Stribild will need to be put on hold at the moment given his acute renal failure. This multicomponent drug cannot be used for creatinine clearance as low as he has at this time. Depending on the rate of his recovery may need to obtain single component medications became each dose appropriately for the renal function. The renal failure is likely acute given the lack of anemia or hyperkalemia at this time. Current Visit: Yes Status: Acute Code(s): N17.9 - ACUTE KIDNEY FAILURE, UNSPECIFIED SNOMED Code(s): 56844041 (2) HIV (human immunodeficiency virus infection) Current Visit: Yes Status: Acute Code(s): B20 - HUMAN IMMUNODEFICIENCY VIRUS [HIV] DISEASE SNOMED Code(s): 25493639 (3) Gout Current Visit: Yes Status: Acute Code(s): M10.9 - GOUT, UNSPECIFIED SNOMED Code(s): 85847780 (4) History of mitral valve repair Current Visit: Yes Status: Acute Code(s): Z98.890 - OTHER SPECIFIED POSTPROCEDURAL STATES SNOMED Code(s): 997076505
[2018-01-14] MEDS ORDERED: BETAMETHASONE DIPROPIONATE 0.05% OINTMENT 45 GM TUBE TOPICAL PRN (21:19)
[2018-01-14] MEDS: DIAZEPAM 5 MG TAB PO SCH (22:18)
[2018-01-14] MEDS: LATANOPROST 0.005% OPHTH DROPS 2.5 ML BTL BOTH EYES SCH (22:18)
--- NOTE | 2018-01-14 22:28 | HP ---
HISTORY AND PHYSICAL DATE OF SERVICE: 01/14/2018 CHIEF COMPLAINTS: Hypotension and renal failure. HISTORY OF PRESENT ILLNESS: This 57-year-old gentleman with a past medical history of HIV, history of asthma, CHF, fibromyalgia, hypertension, cardiomyopathy, being followed by Dr. Pino in the outpatient setting, is on Stribild at this time, which the patient is tolerating well. The CD4 count dropped to 315. Viral load was 2400. Currently the patient is complaining of weakness. The patient reported diminished p.o. intake for the last several days. The patient came to [facility]. Blood pressure was also running low. The patient apparently lost about 40 pounds also. There is no evidence of any new pulmonary embolism at this time. The creatinine was elevated at 6.94 and uric acid elevated at 15.7. Patient was admitted for further evaluation and treatment. There is no history of any fever, rigors or chills at this time. PAST MEDICAL HISTORY: 1. History of asthma. 2. CHF. 3. HIV. 4. Hypertension. 5. Cardiomyopathy. 6. History of cardiac catheterization. 7. Anxiety. 8. Depression. HOME MEDICATIONS: 1. Valtrex 500 mg q.8 p.r.n. 2. Desyrel 200 mg at bedtime. 3. Testosterone 1 application daily. 4. Serevent 1 inhalation b.i.d. p.r.n. 5. Zofran 8 mg daily p.r.n. 6. Toprol XL 100 mg p.r.n. 7. Zestril 10 mg at bedtime. 8. Lasix 40 mg at bedtime. 9. Nexium 40 mg at bedtime. 10.Stribild 1 tablet p.o. at bedtime. 11.Cardura 1 mg at bedtime. 12.Diazepam 10 mg at bedtime. 13.Zyrtec 10 mg at bedtime. 14.Lumigan 1 drop both eyes at bedtime. 15.Betamethasone 1 application daily p.r.n. 16.Zyloprim 100 mg p.o. b.i.d. ALLERGIES: 1. ABACAVIR. 2. SUSTIVA. 3. HYDROCODONE. 4. SULFAMETHOXAZOLE. 5. TRIMETHOPRIM. 6. MORPHINE. FAMILY HISTORY: No history of heart disease or strokes in the family. SOCIAL HISTORY: History of smoking. Occasional alcohol. REVIEW OF SYSTEMS: ENT: No diminished hearing. No diminished vision. CARDIOVASCULAR SYSTEM: No angina, palpitations. RESPIRATORY SYSTEM: As mentioned earlier. GI: As mentioned earlier. : As mentioned earlier. NERVOUS SYSTEM: No numbness, weakness. ALLERGY/IMMUNOLOGY: No asthma, hayfever. MUSCULOSKELETAL: As mentioned earlier. HEMATOLOGY/ONCOLOGY: No history of anemia. ENDOCRINE: No history of diabetes, hypothyroidism. CONSTITUTIONAL: As mentioned earlier. DERMATOLOGY: Negative. RHEUMATOLOGY: Negative. PSYCHIATRY: As mentioned earlier. PHYSICAL EXAMINATION: Patient is alert, oriented x3. Pulse is 58, blood pressure 103/65, respiration 18, temperature 97.6, pulse ox 96% on room air. HEENT: Conjunctivae normal. Oral mucosa moist. NECK: No jugular venous distention. No carotid bruit. No lymph node enlargement. CARDIOVASCULAR SYSTEM: S1, S2 muffled. RESPIRATORY SYSTEM: Breath sounds diminished at the bases. A few scattered rhonchi. ABDOMEN: Soft, non-tender. No mass palpable. LEGS: No edema. No swelling. NERVOUS SYSTEM: Higher functions as mentioned earlier. Moves all 4 limbs. No focal motor or sensory deficit. LYMPHATICS: No lymph node palpable in neck, axillae or groin. SKIN: No ulcer, rash, bleeding. LABS: CBC within normal limits. Creatinine is 6.94. Uric acid 15.7. Creatine kinase is 487. ASSESSMENT: 1. Acute renal failure, possibly acute tubular necrosis secondary to prerenal factors and prerenal acute renal failure. 2. Elevated uric acid. 3. History of asthma. 4. HIV. 5. History of congestive heart failure. 6. Fibromyalgia. 7. Gastroesophageal reflux disease. 8. Hypotension. 9. History of cardiomyopathy. 10.History of hypertension. 11.History of glaucoma. 12.Anxiety. 13.Depression. RECOMMENDATIONS AND DISCUSSION: In this 57-year-old gentleman who presented with multiple complex medical issues, we will monitor the patient closely. Continue the current medications. Continue symptomatic treatment. Will initiate cautious IV fluids and monitor creatinine closely. Nephrology and Cardiology will be consulted and Dr. Pino also will be consulted. A V/Q scan was done which showed only low probability of pulmonary embolism. Abdominal ultrasound was done and renal size was noted. Chest x-ray which was reviewed showed no significant fluid overload at this time. The prognosis is guarded because of multiple complex medical issues. Further recommendations to follow. MMODL / IJN: [id number] /
[2018-01-14] MEDS: traZODone HCL 100 MG TAB PO SCH (22:51)
[2018-01-15] MEDS: SODIUM CHLORIDE 0.9% 1,000 ML IV SCH ×2 (02:24→19:47)
[2018-01-15] MEDS: ONDANSETRON 4 MG TAB PO PRN ×2 (05:01→21:43)
[2018-01-15 06:16] LABS: Basophils % (A) 0 %; Eosinophils # (A) 0.1 k/uL (0-0.7); Eosinophils % (A) 1 %; HCT 36.8 % (39.0-53.0); HGB 12.4 gm/dL (13.0-17.5); Lymphocytes # (A) 1.4 k/uL (1.0-4.8); Lymphocytes % (A) 30 %; MCH 30.7 pg (25.0-35.0); MCHC 33.8 g/dL (31.0-37.0); MCV 90.8 fL (80.0-100.0); Mean Platelet Volume 8.2; Monocytes # (A) 0.2 k/uL (0-1.0); Monocytes % (A) 5 %; Neutrophils # (A) 2.7 k/uL (1.3-7.7); Neutrophils % (A) 61 %; Platelet Count 147 k/uL (150-450); RBC 4.05 m/uL (4.30-5.90); RDW 14.8 % (11.5-15.5); WBC 4.5 k/uL (3.8-10.6)
[2018-01-15 06:49] LABS: Albumin 3.4 g/dL (3.5-5.0); Calcium 7.7 mg/dL (8.4-10.2); Potassium 4.2 mmol/L (3.5-5.1); Total Bilirubin 0.4 mg/dL (0.2-1.3); Total Protein 6.2 g/dL (6.3-8.2); Uric Acid 9.6 mg/dL (3.5-8.5)
[2018-01-15] MEDS: FORMOTEROL FUMARATE 20 MCG/2 ML NEBU INHALATION SCH ×2 (07:16→19:47)
--- NOTE | 2018-01-15 08:35 | P.NPCON ---
History of Present Illness - Reason for Consult acute renal failure - History of Present Illness Reason for consultation: Acute kidney injury History of present illness: Patient is a 57-year-old male seen in renal consultation for acute kidney injury. Patient baseline creatinine is 1 and was elevated at 6.94 on admission. It is down to 2.7 today. He is currently maintained on normal saline at 75 mL an hour. Patient was taking PAL inhibitor and Lasix at home which are currently held. He also admits to taking Motrin 800 mg twice daily. Patient states since he's been feeling quite dizzy and lightheaded. He states his blood pressure has been running in the systolic 80s. His oral intake for the last 1 week has been poor as he has been feeling 6 to his stomach. Denies family history of renal disease. Denies any personal history of kidney disease. Denies vomiting or diarrhea. Denies chest pain or shortness of breath. Denies fever or chills. He currently is a Ocampo catheter in place and is nonoliguric. Vital signs are stable. General: The patient appeared well nourished and normally developed. HEENT: Head exam is unremarkable. Neck is without jugular venous distension. LUNGS: Lungs are clear to auscultation and percussion. Breath sounds decreased. HEART: Rate and Rhythm are regular. First and second heart sounds normal. No murmurs, rubs or gallops. ABDOMEN: Abdominal exam reveals normal bowel sounds. Non-tender and non- distended. No evidence of peritonitis. EXTREMITITES: No clubbing, cyanosis, or edema. Past Medical History Past Medical History: Asthma, Heart Failure, Fibromyalgia, GERD/Reflux, Hypertension, Prostate Disorder Additional Past Medical History / Comment(s): Cardiomyopathy, enlarged aorta, occasionally heart "skips a beat", HIV positive, past HTN and recently low blood pressures, BPH, R ankle gout, chronic nausea, bilateral glaucoma, DDD, chronic pain syndrome, chronic low back and bilateral hip pain and occasional cervical pain, DDD, lumbar stenosis/spondylosis, abdominal hernia History of Any Multi-Drug Resistant Organisms: None Reported Past Surgical History: Heart Catheterization, Hernia Repair, Orthopedic Surgery Additional Past Surgical History / Comment(s): Mitral valve repair at [facility], R inguinal hernia x2, L inguinal hernia, epidural injections to back, hip injections, RFAs, spinal cord stimulator trial. Past Anesthesia/Blood Transfusion Reactions: No Reported Reaction Additional Psychological History / Comment(s): He lives with his significant other, he is healthy. Pet dog in the home. No experience no international travel. Positive tobacco use. History of extensive alcohol use. History of narcotic dependence Smoking Status: Light tobacco smoker - Past Family History Father Additional Family Medical History / Comment(s): Father was injured at work and of complication during his hospitalization. Mother Additional Family Medical History / Comment(s): Mother is from alcoholism. Medications and Allergies Home Medications Medication Instructions Recorded Confirmed Type Betamethasone Valerate 1 applic TOPICAL DAILY PRN 09/06/17 01/14/18 History [Betamethasone Valerate 0.1%] Bimatoprost [Lumigan .01% Ophth 1 drop BOTH EYES HS 09/06/17 01/14/18 History Soln] Cetirizine HCl [Zyrtec] 10 mg PO HS 09/06/17 01/14/18 History Diazepam 10 mg PO HS 09/06/17 01/14/18 History Doxazosin [Cardura] 1 mg PO HS 09/06/17 01/14/18 History Elviteg/Chasidy/Emtric/Tenofo Dis 1 tab PO HS 09/06/17 01/14/18 History [Stribild Tablet] Furosemide [Lasix] 40 mg PO HS 09/06/17 01/14/18 History Lisinopril [Zestril] 10 mg PO HS 09/06/17 01/14/18 History Ondansetron HCl [Zofran] 8 mg PO DAILY PRN 09/06/17 01/14/18 History traZODone HCL [Desyrel] 200 mg PO HS 09/06/17 01/14/18 History Allopurinol [Zyloprim] 100 mg PO BID 11/01/17 01/14/18 History Metoprolol Succinate (ER) [Toprol 100 mg PO HS 11/01/17 01/14/18 History Xl] Salmeterol Xinafoate [Serevent 1 puff INHALATION RT-BID PRN 11/01/17 01/14/18 History Diskus] Testosterone 1 applic TOPICAL DAILY 11/01/17 01/14/18 History valACYclovir HCL [Valtrex] 500 mg PO Q8HR PRN 11/01/17 01/14/18 History Esomeprazole Magnesium [NexIUM] 40 mg PO HS 01/14/18 01/14/18 History diphenhydrAMINE HCL [Benadryl] 25 mg PO HS 01/14/18 01/14/18 History Allergies Allergy/AdvReac Type Severity Reaction Status Date / Time abacavir [From Ziagen] Allergy Anaphylaxis Verified 01/14/18 11:03 efavirenz [From Sustiva] Allergy Anaphylaxis Verified 01/14/18 11:03 hydrocodone Allergy Rapid Verified 01/14/18 11:03 [From Hysingla ER] Heart Rate sulfamethoxazole Allergy HIGH Verified 01/14/18 11:03 [From Bactrim] CREATININE LEVEL trimethoprim [From Bactrim] Allergy HIGH Verified 01/14/18 11:03 CREATININE morphine AdvReac Itching Verified 01/14/18 11:03 Physical Exam Vitals: Vital Signs Temp Pulse Pulse Resp BP BP Pulse Ox 01/15/18 07:28 64 01/15/18 07:18 64 96 01/15/18 04:00 97.4 F L 64 18 114/67 96 01/15/18 00:00 97.9 F 65 18 133/81 98 01/14/18 20:00 97.3 F L 63 18 94/54 96 01/14/18 17:32 97.6 F 58 L 18 103/65 96 01/14/18 16:57 97.3 F L 59 L 18 114/68 96 01/14/18 15:09 58 L 20 107/73 100 01/14/18 14:06 96.7 F L 57 L 18 101/55 100 01/14/18 12:40 59 L 20 82/53 100 01/14/18 10:56 85 01/14/18 10:20 97.8 F 67 18 99/64 97 Intake and Output 01/14/18 01/15/18 01/15/18 22:59 06:59 14:59 Intake Total 300 675 Output Total 2250 Balance 300 -1575 Intake: Intake, IV Titration 300 75 Amount Sodium Chloride 0.9% 1, 300 75 000 ml @ 75 mls/hr IV . [id number] Rx#:[id number] Oral 600 Output: Urine 2250 Other: Voiding Method Indwelling Catheter Indwelling Catheter Weight 102.3 kg Results - Lab Results Most recent lab results Calcium 7.7 mg/dL (8.4-10.2) L 01/15/18 05:44 Phosphorus 3.0 mg/dL (2.5-4.5) 01/15/18 05:44 Magnesium 2.2 mg/dL (1.6-2.3) 01/14/18 11:02 01/15/18 05:44 01/15/18 05:44 Assessment and Plan Plan: Assessment: 1. Nonoliguric acute kidney injury mostly prerenal secondary to hypotension and nonsteroidals/diuretics. Also component of uric acid nephropathy as his uric acid level was 15.7 on admission. Creatinine was 6.94 on admission and is down to 2.7 today. No evidence of hydronephrosis noted on renal ultrasound. 2. Metabolic acidosis secondary to acute kidney injury. Improved. 3. Hyperuricemia with history of gout. Uric acid level 9.6 this morning. 4. Hypotension secondary to intravascular volume depletion from diuretics and poor oral intake. 5. History of HIV being followed by infectious disease. 6. History of mitral valve replacement in 2000. Plan: Continue normal saline at 75 mL an hour. Continue hold diuretics. Hold antihypertensives for systolic blood pressure less than 120. Avoid nephrotoxic agents and hypotensive episodes. Ocampo catheter can be discontinued tomorrow if renal function continues to improve. Repeat electrolytes in the morning. Resume allopurinol. Thank you for the consultation. I will continue to follow the patient with you during his hospital stay.
[2018-01-15] MEDS: ALLOPURINOL 100 MG TAB PO SCH (09:02)
--- NOTE | 2018-01-15 10:34 | P.CRDCN ---
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 The patient stated that he was not feeling well for the last several weeks. He has not been eating or drinking well because of severe nausea. He noticed that his blood pressure at home was low and he brought himself to the emergency room. He did not have any symptoms of dizziness or lightheadedness or loss of consciousness or syncope. But he describes intermittent episodes of chest discomfort seems to be atypical. In the emergency room, the patient was hypotensive and he was in acute renal failure with a creatinine around 6. The patient was started on IV fluid was 0.9 normal saline with significant improvement in the creatinine. The creatinine this morning is 2. The patient's baseline creatinine is 1. The patient was receiving nonsteroid anti-inflammatory for pain at home and also he was on PAL inhibitor. The chest x-ray did not show any acute abnormalities. We have only one set of cardiac enzyme which appointment and that came in to be unremarkable. We are going to obtain 2 more sets of serial cardiac enzymes. Also will obtain an echocardiogram was Doppler. The patient is not aware of any prior history of coronary artery disease or congestive heart failure or cardiac arrhythmia beside the valvular heart disease. He stated that he is scheduled to undergo a stress test at his training and development officer office at the [facility]. Past Medical History Past Medical History: Asthma, Heart Failure, Fibromyalgia, GERD/Reflux, Hypertension, Prostate Disorder Additional Past Medical History / Comment(s): Cardiomyopathy, enlarged aorta, occasionally heart "skips a beat", HIV positive, past HTN and recently low blood pressures, BPH, R ankle gout, chronic nausea, bilateral glaucoma, DDD, chronic pain syndrome, chronic low back and bilateral hip pain and occasional cervical pain, DDD, lumbar stenosis/spondylosis, abdominal hernia History of Any Multi-Drug Resistant Organisms: None Reported Past Surgical History: Heart Catheterization, Hernia Repair, Orthopedic Surgery Additional Past Surgical History / Comment(s): Mitral valve repair at [facility], R inguinal hernia x2, L inguinal hernia, epidural injections to back, hip injections, RFAs, spinal cord stimulator trial. Past Anesthesia/Blood Transfusion Reactions: No Reported Reaction Additional Psychological History / Comment(s): He lives with his significant other, he is healthy. Pet dog in the home. No experience no international travel. Positive tobacco use. History of extensive alcohol use. History of narcotic dependence Smoking Status: Light tobacco smoker - Past Family History Father Additional Family Medical History / Comment(s): Father was injured at work and of complication during his hospitalization. Mother Additional Family Medical History / Comment(s): Mother is from alcoholism. Medications and Allergies Home Medications Medication Instructions Recorded Confirmed Type Betamethasone Valerate 1 applic TOPICAL DAILY PRN 09/06/17 01/14/18 History [Betamethasone Valerate 0.1%] Bimatoprost [Lumigan .01% Ophth 1 drop BOTH EYES HS 09/06/17 01/14/18 History Soln] Cetirizine HCl [Zyrtec] 10 mg PO HS 09/06/17 01/14/18 History Diazepam 10 mg PO HS 09/06/17 01/14/18 History Doxazosin [Cardura] 1 mg PO HS 09/06/17 01/14/18 History Elviteg/Chasidy/Emtric/Tenofo Dis 1 tab PO HS 09/06/17 01/14/18 History [Stribild Tablet] Furosemide [Lasix] 40 mg PO HS 09/06/17 01/14/18 History Lisinopril [Zestril] 10 mg PO HS 09/06/17 01/14/18 History Ondansetron HCl [Zofran] 8 mg PO DAILY PRN 09/06/17 01/14/18 History traZODone HCL [Desyrel] 200 mg PO HS 09/06/17 01/14/18 History Allopurinol [Zyloprim] 100 mg PO BID 11/01/17 01/14/18 History Metoprolol Succinate (ER) [Toprol 100 mg PO HS 11/01/17 01/14/18 History Xl] Salmeterol Xinafoate [Serevent 1 puff INHALATION RT-BID PRN 11/01/17 01/14/18 History Diskus] Testosterone 1 applic TOPICAL DAILY 11/01/17 01/14/18 History valACYclovir HCL [Valtrex] 500 mg PO Q8HR PRN 11/01/17 01/14/18 History Esomeprazole Magnesium [NexIUM] 40 mg PO HS 01/14/18 01/14/18 History diphenhydrAMINE HCL [Benadryl] 25 mg PO HS 01/14/18 01/14/18 History Allergies Allergy/AdvReac Type Severity Reaction Status Date / Time abacavir [From Ziagen] Allergy Anaphylaxis Verified 01/14/18 11:03 efavirenz [From Sustiva] Allergy Anaphylaxis Verified 01/14/18 11:03 hydrocodone Allergy Rapid Verified 01/14/18 11:03 [From Hysingla ER] Heart Rate sulfamethoxazole Allergy HIGH Verified 01/14/18 11:03 [From Bactrim] CREATININE LEVEL trimethoprim [From Bactrim] Allergy HIGH Verified 01/14/18 11:03 CREATININE morphine AdvReac Itching Verified 01/14/18 11:03 Physical Exam Vitals: Vital Signs Temp Pulse Pulse Resp BP BP Pulse Ox 01/15/18 08:00 97.6 F 72 16 118/64 94 L 01/15/18 07:28 64 01/15/18 07:18 64 96 01/15/18 04:00 97.4 F L 64 18 114/67 96 01/15/18 00:00 97.9 F 65 18 133/81 98 01/14/18 20:00 97.3 F L 63 18 94/54 96 01/14/18 17:32 97.6 F 58 L 18 103/65 96 01/14/18 16:57 97.3 F L 59 L 18 114/68 96 01/14/18 15:09 58 L 20 107/73 100 01/14/18 14:06 96.7 F L 57 L 18 101/55 100 01/14/18 12:40 59 L 20 82/53 100 01/14/18 10:56 85 Intake and Output 01/14/18 01/15/18 01/15/18 22:59 06:59 14:59 Intake Total 300 675 120 Output Total 2250 700 Balance 300 -6308 -415 Intake: Intake, IV Titration 300 75 Amount Sodium Chloride 0.9% 1, 300 75 000 ml @ 75 mls/hr IV . [id number] [facility] Rx#:[id number] Oral 600 120 Output: Urine 2250 700 Other: Voiding Method Indwelling Catheter Indwelling Catheter Weight 102.3 kg - Constitutional General appearance: no acute distress - Respiratory Respiratory: bilateral: CTA - Cardiovascular Rhythm: regular Heart sounds: normal: S1, S2 Results 01/15/18 05:44 01/15/18 05:44 Cardiac Enzymes 01/14/18 01/14/18 01/15/18 Range/Units 11:02 11:02 05:44 AST 27 21 (17-59) U/L CK-MB (CK-2) 3.3 H* (0.0-2.4) ng/mL Troponin I <0.012 (0.000-0.034) ng/mL Coagulation 01/14/18 Range/Units 11:02 PT 9.3 (9.0-12.0) sec APTT 24.3 (22.0-30.0) sec CBC 01/14/18 01/15/18 Range/Units 11:02 05:44 WBC 5.4 4.5 (3.8-10.6) k/uL RBC 4.66 4.05 L (4.30-5.90) m/uL Hgb 14.3 12.4 L (13.0-17.5) gm/dL Hct 41.9 36.8 L (39.0-53.0) % Plt Count 174 147 L (150-450) k/uL Comprehensive Metabolic Panel 01/14/18 01/15/18 Range/Units 11:02 05:44 Sodium 142 142 (137-145) mmol/L Potassium 4.4 4.2 (3.5-5.1) mmol/L Chloride 107 113 H (98-107) mmol/L Carbon Dioxide 20 L 22 (22-30) mmol/L BUN 65 H 35 H (9-20) mg/dL Creatinine 6.94 H* 2.70 H (0.66-1.25) mg/dL Glucose 110 H 100 H (74-99) mg/dL Calcium 8.0 L 7.7 L (8.4-10.2) mg/dL AST 27 21 (17-59) U/L ALT 31 27 (21-72) U/L Alkaline Phosphatase 83 68 (38-126) U/L Total Protein 7.5 6.2 L (6.3-8.2) g/dL Albumin 4.4 3.4 L (3.5-5.0) g/dL Current Medications Generic Name Dose Route Start Last Admin Trade Name Clarkq PRN Reason Stop Dose Admin Hydrocodone Bitart/Acetaminophen 1 each 01/14/18 15:11 01/14/18 15:26 Bluebell 5-325 PO 1 each ONCE PRN Administration Pain Allopurinol 200 mg 01/15/18 09:00 01/15/18 09:02 Zyloprim PO 200 mg DAILY ALEX Administration Betamethasone Dipropionate 1 applic 01/14/18 21:19 Diprolene TOPICAL DAILY PRN Rash Diazepam 10 mg 01/14/18 21:30 01/14/18 22:18 Valium PO 10 mg HS ALEX Administration Doxazosin Mesylate 1 mg 01/15/18 21:00 Cardura PO HS ALEX Formoterol Fumarate 20 mcg 01/15/18 08:00 01/15/18 07:16 Perforomist INHALATION 20 mcg RT-BID ALEX Administration Sodium Chloride 1,000 mls @ 75 mls/hr 01/14/18 12:45 01/15/18 02:24 Saline 0.9% IV 75 mls/hr .[id number] [facility] Administration Latanoprost 1 drops 01/14/18 21:30 01/14/18 22:18 Xalatan 0.005% BOTH EYES 1 drops HS ALEX Administration Loratadine 10 mg 01/15/18 21:00 Claritin PO HS ALEX Naloxone HCl 0.2 mg 01/14/18 12:39 Narcan IV Q2M PRN Opioid Reversal Ondansetron HCl 8 mg 01/14/18 21:19 01/15/18 05:01 Zofran PO 8 mg DAILY PRN Administration Nausea Pantoprazole Sodium 40 mg 01/15/18 21:00 Protonix PO HS ALEX Trazodone HCl 200 mg 01/14/18 22:30 01/14/18 22:51 Desyrel PO 200 mg HS ALEX Administration Intake and Output 01/14/18 01/15/18 01/15/18 22:59 06:59 14:59 Intake Total 300 675 120 Output Total 2250 700 Balance 300 -1575 -580 Intake: Intake, IV Titration 300 75 Amount Sodium Chloride 0.9% 1, 300 75 000 ml @ 75 mls/hr IV . [id number] [facility] Rx#:[id number] Oral 600 120 Output: Urine 2250 700 Other: Voiding Method Indwelling Catheter Indwelling Catheter Weight 102.3 kg 01/15/18 05:44 01/15/18 05:44 Assessment and Plan Assessment: Assessment #1 decreased oral intake #2 acute renal failure secondary to decreased oral intake #3 hypotension which has resolved #4 history of mitral valve repair #5 history of HIV Plan #1 continue holding the blood pressure medications including lisinopril #2 continue IV hydration #3 monitor the kidney function #4 obtain 2 more sets of serial cardiac enzymes #5 obtain an echocardiogram was Doppler #6 follow-up with the patient. Thank you for allowing us participate in his care and we will continue following up with the patient
[2018-01-15 15:11] VITALS: BMI 35.3
--- NOTE | 2018-01-15 16:32 | PN ---
PROGRESS NOTE DATE OF SERVICE: 01/15/2018 This 57-year-old gentleman admitted with severe hypotension and renal failure is improving significantly. No chest pain. No palpitations. No fever. The creatinine was elevated up to 6.74. PHYSICAL EXAMINATION: Alert and oriented x3. Pulse is 67, blood pressure 124/74, respirations 16, temperature 97.6, pulse ox 100% on room air. HEENT: Conjunctivae normal. Oral mucosa moist. NECK: No jugular venous distention. CARDIOVASCULAR SYSTEM: S1, S2 muffled. RESPIRATORY SYSTEM: Clear to auscultation. ABDOMEN: Soft, nontender. No mass palpable. LEGS: No edema. No swelling. NERVOUS SYSTEM: No focal deficit. LABS: WBC 4.5, hemoglobin 12.4, sodium 143, potassium 4.2. Glucose is 100. Uric acid is 9.6. Creatinine is 2.7, down from 6.94. ASSESSMENT: 1. Acute renal failure, possibly secondary to acute tubular necrosis secondary to prerenal factors, dehydration and prerenal acute renal failure. 2. Elevated uric acid, improving. 3. History of asthma. 4. HIV. 5. History of congestive heart failure. 6. Fibromyalgia. 7. Gastroesophageal reflux disease. 8. Hypotension. 9. History of cardiomyopathy. 10.History of hypertension. 11.History of glaucoma. 12.Anxiety. 13.Depression. RECOMMENDATIONS AND DISCUSSION: I recommend to continue current medications, continue symptomatic treatment. Closely monitor. Avoid nephrotoxic medications. Continue gentle hydration. Abdominal ultrasound was also done which showed normal renal sizes. Further recommendations to follow. Nephrology evaluation appreciated. MMODL / IJN: [id number] /
--- NOTE | 2018-01-15 17:09 | ECHOF ---
Referral Reason: MEASUREMENTS -------- HEIGHT: 170.2 cm WEIGHT: 102.1 kg BP: 118/64 IVSd: 1.3 cm (0.6 - 1.1) LVIDd: 4.1 cm (3.9 - 5.3) LVPWd: 1.1 cm (0.6 - 1.1) IVSs: 1.8 cm LVIDs: 2.2 cm LVPWs: 1.6 cm LAESV Index (A-L): 37.75 ml/m Ao Diam: 4.0 cm (2.0 - 3.7) LA Diam: 4.5 cm (2.7 - 3.8) AV Cusp: 2.4 cm (1.5 - 2.6) EPSS: 1.1 cm MV E Deejay: 1.48 m/s MV DecT: 293 ms MV A Deejay: 1.21 m/s MV E/A Ratio: 1.22 AR PHT: 246 ms RAP: 5.00 mmHg RVSP: 35.84 mmHg MV EF SLOPE: 36.11 mm/s (70 - 150) MV EXCURSION: 19.37 mm (> 18.000) FINDINGS -------- Sinus rhythm. This was a technically good study. The left ventricular size is normal. There is mild concentric left ventricular hypertrophy. Overa ll left ventricular systolic function is normal with, an EF between 55 - 60 %. There is paradoxical /dysynergic septal motion consistent with post-operative status. The right ventricle is normal in size and function. The left atrium is mildly dilated. The right atrium is normal in size. The aortic valve is trileaflet, and appears structurally normal. No aortic stenosis or regurgitation. MV Repair. Mild tricuspid regurgitation present. The right ventricular systolic pressure, as measured by Doppl er, is 35.84mmHg. Pulmonic valve appears structurally normal. The aortic root is dilated measuring 4.0 cm Normal inferior vena cava with normal inspiratory collapse consistent with estimated right atrial pre ssure of 5 mmHg. The pericardium is normal. CONCLUSIONS -------- 1. Sinus rhythm. 2. This was a technically good study. 3. The left ventricular size is normal. 4. There is mild concentric left ventricular hypertrophy. 5. Overall left ventricular systolic function is normal with, an EF between 55 - 60 %. 6. There is paradoxical/dysynergic septal motion consistent with post-operative status. 7. The right ventricle is normal in size and function. 8. The left atrium is mildly dilated. 9. The right atrium is normal in size. 10. The aortic valve is trileaflet, and appears structurally normal. No aortic stenosis or regurgitat ion. 11. MV Repair. 12. Mild tricuspid regurgitation present. 13. The right ventricular systolic pressure, as measured by Doppler, is 35.84mmHg. 14. Pulmonic valve appears structurally normal. 15. The aortic root is dilated measuring 4.0 cm 16. Normal inferior vena cava with normal inspiratory collapse consistent with estimated right atrial pressure of 5 mmHg. 17. The pericardium is normal. ELEVATOR INSPECTOR: Suzan Park RDCS
[2018-01-15] MEDS ORDERED: traZODone HCL 100 MG TAB PO SCH (21:00)
[2018-01-15] MEDS ORDERED: LORATADINE 10 MG TAB PO SCH (21:00)
[2018-01-15] MEDS ORDERED: DOXAZOSIN 1 MG TAB PO SCH (21:00)
[2018-01-15] MEDS ORDERED: PANTOPRAZOLE 40 MG TABLET PO SCH (21:00)
[2018-01-15] MEDS: LATANOPROST 0.005% OPHTH DROPS 2.5 ML BTL BOTH EYES SCH (21:21)
--- NOTE | 2018-01-15 21:21 | P.PN ---
Subjective Progress Note Date: 01/15/18 57-year-old male known to the office for many years for the care of his HIV infection. He has most recently been on Stribild and tolerating it well , kilograms head some difficulty with compliance and his CD4 count has dropped a bit over time last check was 315. On the last evaluation the viral load was 2400 and he has vacillated over time. He's had no new HIV-related infections. He however has a known history of underlying cardiovascular disease with mitral valve repair performed [facility] several years ago. He does follow there for his hypertension and hypercholesterolemia. He is having difficulties with increasing weight over time and poor activity level. He has continued to smoke especially recently. He has a known history of gout and was in the emergency room several months ago because he ran out of his medication. He was also seen in the pain clinic because of difficulties with his chronic pain and a history of dependence on narcotics. At this time he feels very poorly and has for about the last week. He noticed a marked decrease in his appetite. She's had no severe nausea or emesis but food which was not appealing. We are trying to drink some fluid but noticed that his urine output was falling. He was to have some routine blood work performed for follow-up evaluation and his creatinine on August 2017 was 0.88 and on 01/14/2018 was 7.18. The patient relates she's had one prior bouts of some renal failure when he took some Bactrim and his creatinine elevated at that place never had this extensive renal failure in the past. As noted he feels very poorly with significant malaise fatigue and nausea without emesis. Patient was also noted to have some relative hypotension and was having some intermittent chest pressure 01/15/2018 patient is feeling better but still does not feel as well as usual. It had trouble sleeping last night. He does continue to have some loose stool. Fortunately creatinine is improved from 7.18-2.70. Uric acid has dropped from 13.7-9.6. He does still quite poorly overall, but has had some improved appetite this evening. He is denying fevers chills or rigors. Chest discomforts have improved. Objective - Vital Signs Vital signs: Vital Signs Temp 97.6 F 01/15/18 16:00 Pulse 68 01/15/18 19:54 Resp 16 01/15/18 16:00 BP 124/74 01/15/18 16:00 Pulse Ox 96 01/15/18 16:00 Intake & Output 01/15/18 01/15/18 01/16/18 06:59 18:59 06:59 Intake Total 675 360 Output Total 2250 1300 Balance -1575 -410 Weight 102.3 kg 102.3 kg Intake: Intake, IV Titration 75 Amount Sodium Chloride 0.9% 1, 75 000 ml @ 75 mls/hr IV . [id number] [facility] Rx#:[id number] Oral 600 360 Output: Urine 2250 1300 Other: Voiding Method Indwelling Catheter Indwelling Catheter - Exam 57-year-old male who has difficulties with obesity presents feeling very poorly HEENT: Anicteric conjunctiva are pink and moist nasal mucosa grossly intact without significant lesions, there is no thrush. Mouth is dry Neck: The neck is supple without significant lymphadenopathy or thyromegaly. Lungs: Good bilateral air entry without significant crackles or wheezing. There is no significant bronchial sounds. There is no egophony or dullness. Heart: Regular without arrhythmia, no cervical murmur click or rub PMI is nondisplaced audible S1 and S2 Abdomen: Obese, Positive bowel sounds soft and nontender without palpable masses or organomegaly. There was no guarding or rebound. Extremities: The upper extremities have excellent pulses they are symmetric, no significant petechiae or telangiectasia. No splinter hemorrhages were noted. The lower extremities have trace edema. The peripheral pulses were 2+ and symmetric. Neuro: Awake alert oriented to person place and time. There are no acute new gross focal sensory motor deficits. - Labs CBC & Chem 7: 01/15/18 05:44 01/15/18 05:44 Labs: Abnormal Lab Results - Last 24 Hours (Table) 01/15/18 01/15/18 Range/Units 05:44 05:44 RBC 4.05 L (4.30-5.90) m/uL Hgb 12.4 L (13.0-17.5) gm/dL Hct 36.8 L (39.0-53.0) % Plt Count 147 L (150-450) k/uL Chloride 113 H (98-107) mmol/L BUN 35 H (9-20) mg/dL Creatinine 2.70 H (0.66-1.25) mg/dL Glucose 100 H (74-99) mg/dL Uric Acid 9.6 H (3.5-8.5) mg/dL Calcium 7.7 L (8.4-10.2) mg/dL Total Protein 6.2 L (6.3-8.2) g/dL Albumin 3.4 L (3.5-5.0) g/dL Microbiology - Last 24 Hours (Table) 01/14/18 11:02 Blood Culture - Preliminary Blood No Growth after 24 hours Laboratory Results WBC 4.5 k/uL (3.8-10.6) 01/15/18 05:44 RBC 4.05 m/uL (4.30-5.90) L 01/15/18 05:44 Hgb 12.4 gm/dL (13.0-17.5) L 01/15/18 05:44 Hct 36.8 % (39.0-53.0) L 01/15/18 05:44 MCV 90.8 fL (80.0-100.0) 01/15/18 05:44 MCH 30.7 pg (25.0-35.0) 01/15/18 05:44 MCHC 33.8 g/dL (31.0-37.0) 01/15/18 05:44 RDW 14.8 % (11.5-15.5) 01/15/18 05:44 Plt Count 147 k/uL (150-450) L 01/15/18 05:44 Neutrophils % 61 % 01/15/18 05:44 Lymphocytes % 30 % 01/15/18 05:44 Monocytes % 5 % 01/15/18 05:44 Eosinophils % 1 % 01/15/18 05:44 Basophils % 0 % 01/15/18 05:44 Neutrophils # 2.7 k/uL (1.3-7.7) 01/15/18 05:44 Lymphocytes # 1.4 k/uL (1.0-4.8) 01/15/18 05:44 Monocytes # 0.2 k/uL (0-1.0) 01/15/18 05:44 Eosinophils # 0.1 k/uL (0-0.7) 01/15/18 05:44 Basophils # 0.0 k/uL (0-0.2) 01/15/18 05:44 PT 9.3 sec (9.0-12.0) 01/14/18 11:02 INR 0.9 (<1.2) 01/14/18 11:02 APTT 24.3 sec (22.0-30.0) 01/14/18 11:02 D-Dimer 0.94 mg/L FEU (<0.60) H 01/14/18 11:02 Sodium 142 mmol/L (137-145) 01/15/18 05:44 Potassium 4.2 mmol/L (3.5-5.1) 01/15/18 05:44 Chloride 113 mmol/L (98-107) H 01/15/18 05:44 Carbon Dioxide 22 mmol/L (22-30) 01/15/18 05:44 Anion Gap 7 mmol/L 01/15/18 05:44 BUN 35 mg/dL (9-20) H 01/15/18 05:44 Creatinine 2.70 mg/dL (0.66-1.25) H 01/15/18 05:44 Est GFR (CKD-EPI)AfAm 29 (>60 ml/min/1.73 sqM) 01/15/18 05:44 Est GFR (CKD-EPI)NonAf 25 (>60 ml/min/1.73 sqM) 01/15/18 05:44 Glucose 100 mg/dL (74-99) H 01/15/18 05:44 Uric Acid 9.6 mg/dL (3.5-8.5) H 01/15/18 05:44 Calcium 7.7 mg/dL (8.4-10.2) L 01/15/18 05:44 Phosphorus 3.0 mg/dL (2.5-4.5) 01/15/18 05:44 Magnesium 2.2 mg/dL (1.6-2.3) 01/14/18 11:02 Total Bilirubin 0.4 mg/dL (0.2-1.3) 01/15/18 05:44 AST 21 U/L (17-59) 01/15/18 05:44 ALT 27 U/L (21-72) 01/15/18 05:44 Alkaline Phosphatase 68 U/L (38-126) 01/15/18 05:44 Total Creatine Kinase 487 U/L (55-170) H 01/14/18 11:02 CK-MB (CK-2) 3.3 ng/mL (0.0-2.4) H* 01/14/18 11:02 CK-MB (CK-2) Rel Index 0.7 01/14/18 11:02 Troponin I <0.012 ng/mL (0.000-0.034) 01/15/18 11:47 Total Protein 6.2 g/dL (6.3-8.2) L 01/15/18 05:44 Albumin 3.4 g/dL (3.5-5.0) L 01/15/18 05:44 Urine Color Yellow 01/14/18 13:01 Urine Appearance Cloudy (Clear) 01/14/18 13:01 Urine pH 5.5 (5.0-8.0) 01/14/18 13:01 Ur Specific [place] 1.014 (1.001-1.035) 01/14/18 13:01 Urine Protein 2+ (Negative) H 01/14/18 13:01 Urine Glucose (UA) 2+ (Negative) H 01/14/18 13:01 Urine Ketones Negative (Negative) 01/14/18 13:01 Urine Blood Small (Negative) H 01/14/18 13:01 Urine Nitrite Negative (Negative) 01/14/18 13:01 Urine Bilirubin Negative (Negative) 01/14/18 13:01 Urine Urobilinogen <2.0 mg/dL (<2.0) 01/14/18 13:01 Ur Leukocyte Esterase Negative (Negative) 01/14/18 13:01 Urine WBC 1 /hpf (0-5) 01/14/18 13:01 Uric Acid Crystals Few /hpf (None) H 01/14/18 13:01 Amorphous Sediment Rare /hpf (None) H 01/14/18 13:01 Hyaline Casts 3 /lpf (0-2) H 01/14/18 13:01 Urine Mucus Rare /hpf (None) H 01/14/18 13:01 C. difficile (EIA) Intrp Negative (Negative) 01/15/18 19:29 Microbiology 01/14/18 11:02 Blood Blood Culture - Preliminary No Growth after 24 hours Assessment and Plan (1) Acute renal failure (ARF) Narrative/Plan: 57-year-old male presents to Hospital not feeling well for several days anorexia with nausea and increasing weakness. A routine blood draw earlier today was no evidence of acute renal failure and was advised admission to the hospital. The patient has now been admitted and imaging studies reveal evidence of no acute hydronephrosis, VQ scan was performed with no evidence of pulmonary embolus and a chest x-ray was negative. As noted creatinine is markedly elevated at 7.18 and uric acid was greater than 15. Patient receiving hydration and workup in process for etiology of the acute renal failure. At this time is feeling somewhat better. No evidence of any obstructive process. The patient does have underlying HIV infection and his Stribild will need to be put on hold at the moment given his acute renal failure. This multicomponent drug cannot be used for creatinine clearance as low as he has at this time. Depending on the rate of his recovery may need to obtain single component medications became each dose appropriately for the renal function. The renal failure is likely acute given the lack of anemia or hyperkalemia at this time. 01/15/2018 patient is feeling better today but certainly not at his baseline. However he is denying fevers or chills. Just discomforts have improved. He is less short of breath. Still has some generalized pain. Difficulties with headache and poor sleep continue to bother him. Benadryl will be added to try to assist with his rest at bedtime with his other medications. Is having some chronic diarrhea appears to multifactorial possibly partly due to his underlying HIV and medications. As noted the Striibild needed to be on hold until his renal function has improved such that clearance is high after resuming that medication. If his creatinine clearance and does not recover you have any to go onto single component HIV medications that are each dose adjusted for renal function. Nephrology and cardiology consults noted and appreciated. Current Visit: Yes Status: Acute Code(s): N17.9 - ACUTE KIDNEY FAILURE, UNSPECIFIED SNOMED Code(s): 05394674 (2) HIV (human immunodeficiency virus infection) Current Visit: Yes Status: Acute Code(s): B20 - HUMAN IMMUNODEFICIENCY VIRUS [HIV] DISEASE SNOMED Code(s): 10240728 (3) Gout Current Visit: Yes Status: Acute Code(s): M10.9 - GOUT, UNSPECIFIED SNOMED Code(s): 17365803 (4) History of mitral valve repair Current Visit: Yes Status: Acute Code(s): Z98.890 - OTHER SPECIFIED POSTPROCEDURAL STATES SNOMED Code(s): 090984377
[2018-01-15] MEDS: DIAZEPAM 5 MG TAB PO SCH (21:22)
[2018-01-15] MEDS ORDERED: DIPHENOX-ATROP 2.5-0.025 MG 1 EACH TAB PO PRN (21:22)
[2018-01-15] MEDS: traZODone HCL 100 MG TAB PO SCH (21:23)
[2018-01-15] MEDS ORDERED: diphenhydrAMINE 25 MG CAP PO SCH (21:30)
[2018-01-16 04:59] VITALS: RESP 16; TEMP 98
[2018-01-16] MEDS: SODIUM CHLORIDE 0.9% 1,000 ML IV SCH (05:14)
[2018-01-16 06:45] LABS: Basophils % (A) 1 %; Eosinophils # (A) 0.1 k/uL (0-0.7); Eosinophils % (A) 2 %; HCT 36.2 % (39.0-53.0); HGB 12.6 gm/dL (13.0-17.5); Lymphocytes # (A) 1.8 k/uL (1.0-4.8); Lymphocytes % (A) 43 %; MCH 31.6 pg (25.0-35.0); MCHC 34.7 g/dL (31.0-37.0); MCV 90.9 fL (80.0-100.0); Mean Platelet Volume 8.2; Monocytes # (A) 0.3 k/uL (0-1.0); Monocytes % (A) 6 %; Neutrophils # (A) 1.9 k/uL (1.3-7.7); Neutrophils % (A) 46 %; Platelet Count 143 k/uL (150-450); RBC 3.99 m/uL (4.30-5.90); WBC 4.1 k/uL (3.8-10.6)
[2018-01-16 06:57] LABS: Calcium 8.3 mg/dL (8.4-10.2); Magnesium 1.3 mg/dL (1.6-2.3); Potassium 4.5 mmol/L (3.5-5.1); Uric Acid 5.9 mg/dL (3.5-8.5)
[2018-01-16] MEDS: FORMOTEROL FUMARATE 20 MCG/2 ML NEBU INHALATION SCH (07:19)
--- NOTE | 2018-01-16 08:51 | P.PN ---
Subjective Patient is seen in follow for acute kidney injury. Creatinine was 6.9 on admission and is down to 1.4 today. Hypotension has resolved. Oral intake is good. He is nonoliguric. No vomiting or diarrhea. Vital signs are stable. General: The patient appeared well nourished and normally developed. HEENT: Head exam is unremarkable. Neck is without jugular venous distension. LUNGS: Lungs are clear to auscultation and percussion. Breath sounds decreased. HEART: Rate and Rhythm are regular. First and second heart sounds normal. No murmurs, rubs or gallops. ABDOMEN: Abdominal exam reveals normal bowel sounds. Non-tender and non- distended. No evidence of peritonitis. EXTREMITITES: No clubbing, cyanosis, or edema. Objective - Vital Signs Vital signs: Vital Signs Temp 98 F 01/16/18 04:00 Pulse 72 01/16/18 07:32 Resp 16 01/16/18 04:00 BP 142/87 01/16/18 04:00 Pulse Ox 96 01/16/18 07:22 Intake & Output 01/15/18 01/16/18 01/16/18 18:59 06:59 18:59 Intake Total 360 600 120 Output Total 1300 700 Balance -940 -100 120 Weight 102.3 kg 102.1 kg Intake: Oral 360 600 120 Output: Urine 1300 700 Other: Voiding Method Indwelling Catheter Indwelling Catheter # Voids 1 - Labs CBC & Chem 7: 01/16/18 06:03 01/16/18 06:03 Labs: Abnormal Lab Results - Last 24 Hours (Table) 01/16/18 01/16/18 Range/Units 06:03 06:03 RBC 3.99 L (4.30-5.90) m/uL Hgb 12.6 L (13.0-17.5) gm/dL Hct 36.2 L (39.0-53.0) % Plt Count 143 L (150-450) k/uL Chloride 113 H (98-107) mmol/L Creatinine 1.41 H (0.66-1.25) mg/dL Calcium 8.3 L (8.4-10.2) mg/dL Magnesium 1.3 L (1.6-2.3) mg/dL Microbiology - Last 24 Hours (Table) 01/14/18 11:02 Blood Culture - Preliminary Blood No Growth after 24 hours Assessment and Plan Plan: Assessment: 1. Nonoliguric acute kidney injury mostly prerenal secondary to hypotension and nonsteroidals/diuretics. Also component of uric acid nephropathy as his uric acid level was 15.7 on admission. Creatinine was 6.94 on admission and is down to 1.4 today. No evidence of hydronephrosis noted on renal ultrasound. 2. Metabolic acidosis secondary to acute kidney injury. Improved. 3. Hyperuricemia with history of gout. Uric acid level 5.9 this morning. Maintain on allopurinol. 4. Hypotension secondary to intravascular volume depletion from diuretics and poor oral intake. Improved. 5. History of HIV being followed by infectious disease. 6. History of mitral valve replacement in 2000. Plan: Hep-Lock IV fluids. Continue to hold diuretics. Hold antihypertensives for systolic blood pressure less than 120. Avoid nephrotoxic agents and hypotensive episodes. Discontinue Ocampo catheter. Replace magnesium. 3 g IV today. Patient may resume Lasix in the next 2-3 days if notices swelling or weight gain.
[2018-01-16] MEDS: ALLOPURINOL 100 MG TAB PO SCH (09:18)
[2018-01-16] MEDS: MAGNESIUM SULFATE-D5W PMX 1 GM in DEXTROSE/WATER 1 100ML.BAG IVPB SCH ×3 (09:22→14:09)
[2018-01-16 12:00] VITALS: BP 149/81; PULSE 59
--- NOTE | 2018-01-16 15:25 | P.PN ---
Subjective Progress Note Date: 01/16/18 This is a 57-year-old gentleman with a past medical history significant for valvular heart disease and status post mitral valve repair was performed about 10 years ago at the [facility] and the patient currently follows with a us marketing director over there, history of HIV, and hypertension, presented to the emergency room because of low blood pressure. The patient stated that he was not feeling well for the last several weeks. He has not been eating or drinking well because of severe nausea. He noticed that his blood pressure at home was low and he brought himself to the emergency room. He did not have any symptoms of dizziness or lightheadedness or loss of consciousness or syncope. But he describes intermittent episodes of chest discomfort seems to be atypical. In the emergency room, the patient was hypotensive and he was in acute renal failure with a creatinine of 6.94. The patient was started on IV fluid was 0.9 normal saline with significant improvement in the creatinine. The creatinine this morning is 1.41. The patient's baseline creatinine is 1. The patient was receiving nonsteroid anti-inflammatory for pain at home and also he was on PAL inhibitor. The chest x-ray did not show any acute abnormalities. Echocardiogram showed normal LV systolic function with ejection fraction of 55-60%, status post MV repair, mild TR. Troponins came in to be negative at less than 0.012, 0.016 and less than 0.012. He follows with a us marketing director at [facility] and is scheduled there are this fall for a follow-up. Objective - Vital Signs Vital signs: Vital Signs Temp 98 F 01/16/18 04:00 Pulse 59 L 01/16/18 12:00 Resp 16 01/16/18 12:00 BP 149/81 01/16/18 12:00 Pulse Ox 96 01/16/18 12:00 Intake & Output 01/15/18 01/16/18 01/16/18 18:59 06:59 18:59 Intake Total 360 600 120 Output Total 1300 700 Balance -940 -100 120 Weight 102.3 kg 102.1 kg Intake: Oral 360 600 120 Output: Urine 1300 700 Other: Voiding Method Indwelling Catheter Indwelling Catheter Indwelling Catheter # Voids 1 - Exam PHYSICAL EXAMINATION: HEENT: Head is atraumatic, normocephalic. Pupils equal, round. Neck is supple. There is no elevated jugular venous pressure. HEART EXAMINATION: Heart sounds regular, S1 and S2 normal. No murmur or gallop heard. CHEST EXAMINATION: Lungs are clear to auscultation and precussion. No chest wall tenderness is noted on palpation or with deep breathing. ABDOMEN: Soft, nontender. Bowel sounds are heard. No organomegaly noted. EXTREMITIES: 2+ peripheral pulses with no evidence of peripheral edema and no calf tenderness noted. NEUROLOGIC patient is awake, alert and oriented x3. . - Labs CBC & Chem 7: 01/16/18 06:03 01/16/18 06:03 Labs: Abnormal Lab Results - Last 24 Hours (Table) 01/16/18 01/16/18 Range/Units 06:03 06:03 RBC 3.99 L (4.30-5.90) m/uL Hgb 12.6 L (13.0-17.5) gm/dL Hct 36.2 L (39.0-53.0) % Plt Count 143 L (150-450) k/uL Chloride 113 H (98-107) mmol/L Creatinine 1.41 H (0.66-1.25) mg/dL Calcium 8.3 L (8.4-10.2) mg/dL Magnesium 1.3 L (1.6-2.3) mg/dL Microbiology - Last 24 Hours (Table) 01/14/18 11:02 Blood Culture - Preliminary Blood No Growth after 48 hours Assessment and Plan Assessment: #1 decreased oral intake #2 acute renal failure secondary to decreased oral intake #3 hypotension which has resolved #4 history of mitral valve repair #5 history of HIV Plan: Tool Rental Technician perspective, patient is stable for discharge home. He will follow- up as an outpatient with his primary us marketing director out of the [facility]. We will follow the patient on an as-needed basis for the rest of the duration of his inpatient stay. Please hesitate to contact us with questions. SOCIAL MEDIA DIRECTOR note has been reviewed, I agree with a documented findings and plan of care. Patient was seen and examined.
--- NOTE | 2018-01-16 18:33 | DS ---
DISCHARGE SUMMARY FINAL DIAGNOSES: 1. Acute renal failure possibly secondary to acute tubular necrosis secondary to prerenal factors, dehydration prerenal acute renal failure. 2. Elevated uric acid, improved. 3. History of asthma. 4. HIV. 5. History of congestive heart failure. 6. Fibromyalgia. 7. Gastroesophageal reflux disease. 8. Hypotension. 9. History of cardiomyopathy. 10.History of hypertension. 11.History of glaucoma. 12.Anxiety/depression. DISCHARGE DISPOSITION: The patient is being discharged in stable condition with guarded prognosis. HISTORY OF PRESENT ILLNESS: This 57-year-old gentleman with a past medical history of multiple medical problems as mentioned earlier, being followed by Dr. Pino in the outpatient setting, admitted with severe acute renal failure. The patient was treated symptomatically and the creatinine improved significantly to 1.41. Patient also had some urinary outlet issues and the patient was recommended to have outpatient followup. On exam, vital signs are stable. Cardiovascular: S1, S2. Abdomen soft. Nontender. Nervous system: No focal deficits. DISCHARGE ADVICE AND MEDICATIONS: 1. Diet is cardiac diet. 2. Activity limited until followup. 3. Follow up with Dr. Pino in 2-3 days. 4. Follow up with Dr. Mcmullen as advised from nephrology. MEDICATIONS ARE: 1. Zyloprim 100 mg p.o. b.i.d. 2. Betamethasone topically. 3. Lumigan 1 drop both eyes. 4. Zyrtec 10 mg q.h.s. 5. diazepam mg q.h.s. 6. Benadryl 25 mg q.h.s. 7. Cardura 1 mg q.h.s. 8. Stribild 1 tab p.o. q.h.s. 9. esmoprazole 40 mg q.h.s. 10.Metoprolol 100 mg q.h.s. 11.Zofran 8 mg p.o. daily. 12.Salmeterol 1 puff b.i.d. p.r.n. 13.Testosterone application topically. 14.Desyrel 20 mg q.h.s. 15.Valtrex as before 500 mg q.i.d. 16.Imodium p.r.n. 17.Apresoline 25 mg p.o. t.i.d. and monitor blood pressure closely. 18.Hold Zestril and Lasix for now. 19.Continue the HIV medications per Dr. Pino. Followup labs in the outpatient setting, CBC BMP. MMODL / IJN: [id number] / CORNELIUS
--- NOTE | 2018-01-18 13:52 | CDI ---
Last Revision, June 2017 Documentation Clarification Form Date: 01/18/18 From: Yanira Chavez Phone: If you have a question regarding this query, please contact Lissett Hylton at [phone] between 8am and 5pm. Admit Date: 01/14/2018 12:39:00 PM Patient Name: Ned Toledo Visit Number: [id number] Discharge Date: 01/16/18 ATTENTION: The Clinical Documentation Specialists (CDI) and [facility] Coding Staff appreciate your assistance in clarifying documentation. Please respond to the clarification below the line at the bottom and electronically sign. The CDI & [facility] Coding staff will review the response and follow-up if needed. Please note: Queries are made part of the Legal Health Record. If you have any questions, please contact the author of this message via ITS. Dr. Sergo Morales History of CHF is documented in the H&P, your consult note, Dr. Gandhi's 01/15 progress note and in the discharge summary. History/Risk Factors: Patient was admitted for acute renal failure. The patient also has a history of cardiomyopathy, hypertension, enlarged aorta and mitral valve replacement. Echocardiogram Results: Overall left ventricular systolic function is normal with an EF between 55 and 60%. Chest X Ray: No acute cardiopulmonary process. Treatment: PO lasix In your professional opinion, can you please clarify the acuity and type of CHF if known? Chronic Diastolic Heart Failure: Acute on chronic diastolic heart failure Chronic Systolic Heart Failure Acute on chronic systolic heart failure Unable to Determine Other, please specify MTDD
== END 2018-01-16 16:49 | disposition home or self-care (01) | DRG 682 ==
LOC: EC 10:04 → 6SEL 12:39
PROVIDERS: ADMIT Hospitalist; ATTEND Hospitalist
DX: N17.0 Acute kidney failure with tubular necrosis (principal); B20 Human immunodeficiency virus [HIV] disease; E87.2 Acidosis; I42.9 Cardiomyopathy, unspecified; F11.20 Opioid dependence, uncomplicated; E78.00 Pure hypercholesterolemia, unspecified; E86.9 Volume depletion, unspecified; F17.210 Nicotine dependence, cigarettes, uncomplicated; F32.9 Major depressive disorder, single episode, unspecified; F41.9 Anxiety disorder, unspecified; G89.4 Chronic pain syndrome; H40.9 Unspecified glaucoma; I11.0 Hypertensive heart disease with heart failure; J45.909 Unspecified asthma, uncomplicated; K21.9 Gastro-esophageal reflux disease without esophagitis; K52.9 Noninfective gastroenteritis and colitis, unspecified; M79.7 Fibromyalgia; N28.9 Disorder of kidney and ureter, unspecified; N40.0 Benign prostatic hyperplasia without lower urinary tract symptoms; M25.551 Pain in right hip; M25.552 Pain in left hip; M47.9 Spondylosis, unspecified; M48.061 Spinal stenosis, lumbar region without neurogenic claudication; I95.9 Hypotension, unspecified; M54.2 Cervicalgia; M54.5 Low back pain; M10.9 Gout, unspecified; T39.395A Adverse effect of other nonsteroidal anti-inflammatory drugs [NSAID], initial encounter; T50.2X5A Adverse effect of carbonic-anhydrase inhibitors, benzothiadiazides and other diuretics, initial encounter; I77.9 Disorder of arteries and arterioles, unspecified; I07.1 Rheumatic tricuspid insufficiency; E66.9 Obesity, unspecified; Z68.35 Body mass index [BMI] 35.0-35.9, adult; Z95.2 Presence of prosthetic heart valve; Z79.899 Other long term (current) drug therapy; Z88.1 Allergy status to other antibiotic agents; Z88.5 Allergy status to narcotic agent; Z88.2 Allergy status to sulfonamides; Z88.8 Allergy status to other drugs, medicaments and biological substances; I50.9 Heart failure, unspecified
CPT/HCPCS: 36415; 51702; 71046; 76770; 78582; 80048; 80053; 81001; 82550; 82553; 83735; 84100; 84484; 84550; 85025; 85379; 85610; 85730; 86360; 87040; 87324; 87536; 93005; 93306; 94640; 94760; 96360; 96361; 99285

== ENCOUNTER → 2018-01-14 | Outpatient (CLI) | payer MEDICARE, OTHER ==
[2018-01-14 10:22] LABS: Basophils % (A) 1 %; Eosinophils # (A) 0.1 k/uL (0-0.7); Eosinophils % (A) 2 %; HCT 41.1 % (39.0-53.0); Lymphocytes % (A) 35 %; MCV 91.1 fL (80.0-100.0); Mean Platelet Volume 8.6; Monocytes # (A) 0.3 k/uL (0-1.0); Monocytes % (A) 6 %; Neutrophils # (A) 3.1 k/uL (1.3-7.7); Neutrophils % (A) 54 %; Platelet Count 161 k/uL (150-450); RBC 4.51 m/uL (4.30-5.90); WBC 5.7 k/uL (3.8-10.6)
[2018-01-14 10:31] LABS: Albumin 4.1 g/dL (3.5-5.0); Calcium 7.7 mg/dL (8.4-10.2); Potassium 4.5 mmol/L (3.5-5.1); Total Bilirubin 0.3 mg/dL (0.2-1.3); Total Protein 6.9 g/dL (6.3-8.2)
[2018-01-15 11:07] LABS: T4/T8 Ratio (CD4:CD8) 0.3 (1.0-3.7)
[2018-01-15 13:04] LABS: HIV-1 RNA DETECTED (Not detected); HIV-1 RNA, Quant <40 Copies/mL (<40)
== END | disposition home or self-care (01) ==
LOC: LABWHC1 09:27
PROVIDERS: ATTEND Internal Medicine Infectious Disease
DX: B20 Human immunodeficiency virus [HIV] disease (principal); Z88.2 Allergy status to sulfonamides; Z88.8 Allergy status to other drugs, medicaments and biological substances
CPT/HCPCS: 36415; 80053; 85025; 86360; 87536

== ENCOUNTER → 2018-02-06 | Outpatient (CLI) | payer MEDICARE, OTHER ==
[2018-02-06 11:48] LABS: ALT 40 U/L (21-72); AST 29 U/L (17-59); Albumin 4.1 g/dL (3.5-5.0); Alkaline Phosphatase 99 U/L (38-126); Anion Gap 8 mmol/L; Blood Urea Nitrogen 19 mg/dL (9-20); Calcium 8.6 mg/dL (8.4-10.2); Carbon Dioxide 27 mmol/L (22-30); Chloride 106 mmol/L (98-107); Glucose 136 mg/dL (74-99); Potassium 3.9 mmol/L (3.5-5.1); Sodium 141 mmol/L (137-145); Total Bilirubin 0.4 mg/dL (0.2-1.3); Total Protein 7.1 g/dL (6.3-8.2)
[2018-02-06 14:40] LABS: Basophils % (A) 0 %; Eosinophils # (A) 0.2 k/uL (0-0.7); Eosinophils % (A) 3 %; HCT 42.5 % (39.0-53.0); HGB 14.5 gm/dL (13.0-17.5); Lymphocytes # (A) 2.7 k/uL (1.0-4.8); Lymphocytes % (A) 40 %; MCH 30.8 pg (25.0-35.0); MCHC 34.1 g/dL (31.0-37.0); MCV 90.5 fL (80.0-100.0); Mean Platelet Volume 8.8; Monocytes # (A) 0.5 k/uL (0-1.0); Monocytes % (A) 7 %; Neutrophils # (A) 3.3 k/uL (1.3-7.7); Neutrophils % (A) 48 %; Platelet Count 213 k/uL (150-450); RDW 14.8 % (11.5-15.5); Uric Acid 5.2 mg/dL (3.5-8.5); WBC 6.8 k/uL (3.8-10.6)
[2018-02-07 12:24] LABS: T4/T8 Ratio (CD4:CD8) 0.2 (1.0-3.7)
[2018-02-09 12:48] LABS: HIV-1 RNA DETECTED (Not detected); HIV-1 RNA, Quant 375 Copies/mL (<40)
== END | disposition home or self-care (01) ==
LOC: LABWHC1 10:45
PROVIDERS: ATTEND Internal Medicine Infectious Disease
DX: B20 Human immunodeficiency virus [HIV] disease (principal); Z88.8 Allergy status to other drugs, medicaments and biological substances; Z88.2 Allergy status to sulfonamides
CPT/HCPCS: 36415; 80053; 84550; 85025; 86360; 87536

== ENCOUNTER 2018-02-23 02:02 | Inpatient (IN) | payer MEDICARE, OTHER ==
[2018-02-23] MEDS ORDERED: SODIUM CHLORIDE 0.9% 1,000 ML IV STA (02:11)
[2018-02-23 02:23] LABS: Glucose,Whole Blood 108 mg/dL (75-99)
--- NOTE | 2018-02-23 02:29 | ED ---
General Adult HPI - General Chief complaint: Overdose Stated complaint: Possible Overdose Time Seen by Provider: 02/23/18 02:11 Source: patient Mode of arrival: wheelchair Limitations: no limitations - History of Present Illness Initial comments: Ned is a [age]-year-old male who presents to the emergency department today for evaluation of an intentional overdose. History is somewhat limited by the patient's slurred speech and altered mental status, he states that he had been drinking vodka and then ROM during the night. He states that he wanted to get his significant other's attention so he intentionally tucked 8-10 of his Valium, 5 out of his trazodone and 10 of his 100 mg metoprolol, he immediately told his significant other about this ingestion who brought him to the ER for further management. Patient denies suicidal intent. He states that he does not want to he just wants people to pay attention to him. - Related Data Home Medications Medication Instructions Recorded Confirmed Betamethasone Valerate 1 applic TOPICAL DAILY PRN 09/06/17 02/23/18 [Betamethasone Valerate 0.1%] Bimatoprost [Lumigan .01% Ophth 1 drop BOTH EYES HS 09/06/17 02/23/18 Soln] Cetirizine HCl [Zyrtec] 10 mg PO HS 09/06/17 02/23/18 Diazepam 10 mg PO HS 09/06/17 02/23/18 Doxazosin [Cardura] 1 mg PO HS 09/06/17 02/23/18 Elviteg/Chasidy/Emtric/Tenofo Dis 1 tab PO HS 09/06/17 02/23/18 [Stribild Tablet] Ondansetron HCl [Zofran] 8 mg PO DAILY PRN 09/06/17 02/23/18 traZODone HCL [Desyrel] 200 mg PO HS 09/06/17 02/23/18 Allopurinol [Zyloprim] 100 mg PO BID 11/01/17 02/23/18 Metoprolol Succinate (ER) [Toprol 100 mg PO HS 11/01/17 02/23/18 XL] Salmeterol Xinafoate [Serevent 1 puff INHALATION RT-BID PRN 11/01/17 02/23/18 Diskus] Testosterone 1 applic TOPICAL DAILY 11/01/17 02/23/18 valACYclovir HCL [Valtrex] 500 mg PO Q8HR PRN 11/01/17 02/23/18 Esomeprazole Magnesium [NexIUM] 40 mg PO HS 01/14/18 02/23/18 diphenhydrAMINE HCL [Benadryl] 25 mg PO HS 01/14/18 02/23/18 Previous Rx's Medication Instructions Recorded Diphenox-Atrop 2.5-0.025 mg 1 each PO Q6HR PRN #12 tab 01/16/18 [Lomotil] hydrALAZINE HCL [Apresoline] 25 mg PO TID #90 tab 01/16/18 Allergies Allergy/AdvReac Type Severity Reaction Status Date / Time abacavir [From Ziagen] Allergy Anaphylaxis Verified 01/14/18 11:03 efavirenz [From Sustiva] Allergy Anaphylaxis Verified 01/14/18 11:03 hydrocodone Allergy Rapid Verified 01/14/18 11:03 [From Hysingla ER] Heart Rate sulfamethoxazole Allergy HIGH Verified 01/14/18 11:03 [From Bactrim] CREATININE LEVEL trimethoprim [From Bactrim] Allergy HIGH Verified 01/14/18 11:03 CREATININE morphine AdvReac Itching Verified 01/14/18 11:03 Review of Systems ROS Statement: Those systems with pertinent positive or pertinent negative responses have been documented in the HPI. ROS Other: All systems not noted in ROS Statement are negative. Past Medical History Past Medical History: Asthma, Heart Failure, Fibromyalgia, GERD/Reflux, Hypertension, Prostate Disorder Additional Past Medical History / Comment(s): Cardiomyopathy, enlarged aorta, occasionally heart "skips a beat", HIV positive, past HTN and recently low blood pressures, BPH, R ankle gout, chronic nausea, bilateral glaucoma, DDD, chronic pain syndrome, chronic low back and bilateral hip pain and occasional cervical pain, DDD, lumbar stenosis/spondylosis, abdominal hernia History of Any Multi-Drug Resistant Organisms: None Reported Past Surgical History: Heart Catheterization, Hernia Repair, Orthopedic Surgery Additional Past Surgical History / Comment(s): Mitral valve repair at [facility], R inguinal hernia x2, L inguinal hernia, epidural injections to back, hip injections, RFAs, spinal cord stimulator trial. Past Anesthesia/Blood Transfusion Reactions: No Reported Reaction Past Psychological History: Anxiety, Depression Smoking Status: Light tobacco smoker - Past Family History Father Additional Family Medical History / Comment(s): Father was injured at work and of complication during his hospitalization. Mother Additional Family Medical History / Comment(s): Mother is from alcoholism. General Exam Limitations: altered mental status General appearance: obtunded Head exam: Present: atraumatic, normocephalic Eye exam: Present: PERRL ENT exam: Present: mucous membranes moist Neck exam: Present: normal inspection, other (unable to hold his head up) Respiratory exam: Present: other (respiratory depression, decreased respiratory effort, decreased breath sounds at bilateral bases) Cardiovascular Exam: Present: normal rhythm GI/Abdominal exam: Present: soft. Absent: distended Rectal exam: Present: deferred exam: Present: normal inspection, circumcision Extremities exam: Present: normal inspection, normal capillary refill Neurological exam: Present: alert, other (oriented to person, slurred speech, moving all extremities) Psychiatric exam: Present: depressed, flat affect. Absent: homicidal ideation, suicidal ideation Skin exam: Present: warm, dry Course Vital Signs 02/23/18 02/23/18 02/23/18 02:05 02:18 02:23 Temperature 98.1 F Pulse Rate 73 68 66 Respiratory 20 13 14 Rate Blood Pressure 76/50 107/77 98/70 O2 Sat by Pulse 92 L 98 99 Oximetry 02/23/18 02/23/18 02/23/18 02:39 02:42 03:05 Temperature Pulse Rate 65 66 118 H Respiratory 15 14 14 Rate Blood Pressure 109/71 88/54 155/93 O2 Sat by Pulse 97 95 Oximetry 02/23/18 02/23/18 02/23/18 03:13 03:19 03:23 Temperature Pulse Rate 130 H 122 H 112 H Respiratory 14 15 17 Rate Blood Pressure 132/78 122/98 101/62 O2 Sat by Pulse 98 99 Oximetry 02/23/18 02/23/18 02/23/18 03:43 03:53 03:58 Temperature Pulse Rate 62 58 L 56 L Respiratory 15 18 16 Rate Blood Pressure 113/65 93/51 101/62 O2 Sat by Pulse 100 99 99 Oximetry 02/23/18 02/23/18 02/23/18 04:03 04:13 04:18 Temperature Pulse Rate 58 L 58 L 56 L Respiratory 18 16 16 Rate Blood Pressure 106/72 106/76 103/67 O2 Sat by Pulse 98 98 99 Oximetry 02/23/18 02/23/18 02/23/18 04:23 04:29 04:43 Temperature Pulse Rate 56 L 56 L 55 L Respiratory 16 16 16 Rate Blood Pressure 100/61 100/61 100/65 O2 Sat by Pulse 98 98 99 Oximetry 02/23/18 02/23/18 02/23/18 04:53 05:06 05:18 Temperature Pulse Rate 56 L 55 L 54 L Respiratory 16 16 16 Rate Blood Pressure 94/53 90/57 90/62 O2 Sat by Pulse 96 96 97 Oximetry 02/23/18 05:45 Temperature 97.6 F Pulse Rate 55 L Respiratory 16 Rate Blood Pressure 96/56 O2 Sat by Pulse 98 Oximetry Procedures - Intubation Time Out Performed: Yes Sedative: Etomidate Paralytic: Succinylcholine Laryngoscope: Jerrica Size: 4 ET Tube Size: 8 ET Tube Uncuffed: No Tube Secured Depth (cm): 22 Tube Secured Location: lips Tube Placement Confirmation: visualized tube passing through cords, equal breath sounds bilaterally, confirmation by capnometry Patient Tolerated Procedure: well Medical Decision Making - Medical Decision Making Patient was seen and evaluated, history was obtained from the patient, his significant other at bedside and medical record Patient with polysubstance ingestion including alcohol, Valium, trazodone, beta blockers Patient is hypotensive and obtunded upon arrival EKG reveals sinus rhythm with a rate of 69, there is poor baseline due to patient moving and being uncooperative with exam however is no evidence of acute ischemia or infarction. Normal axis, normal intervals. Labs and imaging were ordered Patient care was discussed with poison control who recommended charcoal, and following beta trish overdose protocol In addition the patient's blood pressures dropping, at this time I will order a bolus of glucagon per the beta trish overdose protocol Discussed this with pharmacy, they state that we have 49 1mg vials of glucagon available. If the patient were to require a glucagon drip after his infusion this would account for 4 hours of treatment. Patient remains obtunded, decreased respiratory effort and concerned that he may be becoming hypercapnic which is likely worsening his mental status. I do feel at this time that the patient is likely unable to protect his airway - at this time I feel will be best that the patient be intubated Patient was intubated without difficulty using RSI An OG tube was placed and a significant amount of fluid as well as apparent pill particles were suctioned from the patient's stomach, one suctioning was no longer producing significant amounts of fluid or pills, activated charcoal was given Due to the potential for hemodynamic compromise I would like to avoid propofol, benzodiazepines or Janeth. I do feel ketamine is the best sedative agent for the patient at this time. I discussed this with the anesthesiologist commissioned security officer who states that ketamine is an appropriate choice. I discussed this with pharmacy who will provide a ketamine infusion. After intubation and glucagon, the patient's blood pressure did improve, the patient did become somewhat agitated after being intubated. His initial blood gas was respiratory acidosis with hypercapnia. I do feel that improving the hypercapnia is benefiting the patient and improving his mental status. When necessary fentanyl and Ativan were given while awaiting the Ketamine infusion. Patient continued to have mean arterial pressure in the mid to high 60s. Per the beta trish overdose protocol there is no indication for glucagon drip, high-dose insulin and dextrose or pressors at this time. Heart rate did begin to drop to the 50s however his mean arterial pressure remained stable. Patient care was discussed with patient's primary care physician Dr. Pino who is very familiar with the patient and recommends admission to the ICU under the [facility] with a consult to info analyst of their choice care was discussed with Dr. Celaya of the [facility] who accepts the admission and will evaluate the patient. Request a consult to Dr. Mendiola - Lab Data Result diagrams: 02/23/18 06:38 02/23/18 06:38 Lab Results 02/23/18 02/23/18 02/23/18 Range/Units 02:14 02:14 02:14 WBC 8.7 (3.8-10.6) k/uL RBC 5.13 (4.30-5.90) m/uL Hgb 15.7 (13.0-17.5) gm/dL Hct 46.2 (39.0-53.0) % MCV 90.0 (80.0-100.0) fL MCH 30.6 (25.0-35.0) pg MCHC 34.0 (31.0-37.0) g/dL RDW 14.3 (11.5-15.5) % Plt Count 219 (150-450) k/uL Neutrophils % 43 % Lymphocytes % 45 % Monocytes % 6 % Eosinophils % 2 % Basophils % 1 % Neutrophils # 3.8 (1.3-7.7) k/uL Lymphocytes # 3.9 (1.0-4.8) k/uL Monocytes # 0.6 (0-1.0) k/uL Eosinophils # 0.2 (0-0.7) k/uL Basophils # 0.1 (0-0.2) k/uL PT 10.1 (9.0-12.0) sec INR 1.0 (<1.2) Sample Site ABG pH (7.35-7.45) ABG pCO2 (35-45) mmHg ABG pO2 (83-108) mmHg ABG HCO3 (21-25) mmol/L ABG Total CO2 (19-24) mmol/L ABG O2 Saturation (94-97) % ABG Base Excess mmol/L [place] Test FiO2 % Sodium 141 (137-145) mmol/L Potassium 4.0 (3.5-5.1) mmol/L Chloride 101 (98-107) mmol/L Carbon Dioxide 23 (22-30) mmol/L Anion Gap 17 mmol/L BUN 23 H (9-20) mg/dL Creatinine 1.40 H (0.66-1.25) mg/dL Est GFR (CKD-EPI)AfAm 65 (>60 ml/min/1.73 sqM) Est GFR (CKD-EPI)NonAf 56 (>60 ml/min/1.73 sqM) Glucose 109 H (74-99) mg/dL POC Glucose (mg/dL) (75-99) mg/dL POC Glu Computer Game Tester ID Lactic Ac Sepsis Rflx Plasma Lactic Acid Alxeey (0.7-2.0) mmol/L Calcium 9.2 (8.4-10.2) mg/dL Total Bilirubin 0.6 (0.2-1.3) mg/dL AST 29 (17-59) U/L ALT 34 (21-72) U/L Alkaline Phosphatase 95 (38-126) U/L Total Protein 8.6 H (6.3-8.2) g/dL Albumin 4.8 (3.5-5.0) g/dL Urine Color Urine Appearance (Clear) Urine pH (5.0-8.0) Ur Specific [place] (1.001-1.035) Urine Protein (Negative) Urine Glucose (UA) (Negative) Urine Ketones (Negative) Urine Blood (Negative) Urine Nitrite (Negative) Urine Bilirubin (Negative) Urine Urobilinogen (<2.0) mg/dL Ur Leukocyte Esterase (Negative) Salicylates <1.0 mg/dL Urine Opiates Screen (NotDetected) Ur Oxycodone Screen (NotDetected) Urine Methadone Screen (NotDetected) Ur Propoxyphene Screen (NotDetected) Acetaminophen <10.0 ug/mL Ur Barbiturates Screen (NotDetected) U Tricyclic Antidepress (NotDetected) Ur Phencyclidine Scrn (NotDetected) Ur Amphetamines Screen (NotDetected) U Methamphetamines Scrn (NotDetected) U Benzodiazepines Scrn (NotDetected) Urine Cocaine Screen (NotDetected) U Marijuana (THC) Screen (NotDetected) Serum Alcohol 181 mg/dL 02/23/18 02/23/18 02/23/18 Range/Units 02:14 02:17 02:28 WBC (3.8-10.6) k/uL RBC (4.30-5.90) m/uL Hgb (13.0-17.5) gm/dL Hct (39.0-53.0) % MCV (80.0-100.0) fL MCH (25.0-35.0) pg MCHC (31.0-37.0) g/dL RDW (11.5-15.5) % Plt Count (150-450) k/uL Neutrophils % % Lymphocytes % % Monocytes % % Eosinophils % % Basophils % % Neutrophils # (1.3-7.7) k/uL Lymphocytes # (1.0-4.8) k/uL Monocytes # (0-1.0) k/uL Eosinophils # (0-0.7) k/uL Basophils # (0-0.2) k/uL PT (9.0-12.0) sec INR (<1.2) Sample Site ABG pH (7.35-7.45) ABG pCO2 (35-45) mmHg ABG pO2 (83-108) mmHg ABG HCO3 (21-25) mmol/L ABG Total CO2 (19-24) mmol/L ABG O2 Saturation (94-97) % ABG Base Excess mmol/L [place] Test FiO2 % Sodium (137-145) mmol/L Potassium (3.5-5.1) mmol/L Chloride (98-107) mmol/L Carbon Dioxide (22-30) mmol/L Anion Gap mmol/L BUN (9-20) mg/dL Creatinine (0.66-1.25) mg/dL Est GFR (CKD-EPI)AfAm (>60 ml/min/1.73 sqM) Est GFR (CKD-EPI)NonAf (>60 ml/min/1.73 sqM) Glucose (74-99) mg/dL POC Glucose (mg/dL) 108 H (75-99) mg/dL POC Glu Computer Game Tester ID Sharon Terry Lactic Ac Sepsis Rflx Plasma Lactic Acid Alexey 2.4 H* (0.7-2.0) mmol/L Calcium (8.4-10.2) mg/dL Total Bilirubin (0.2-1.3) mg/dL AST (17-59) U/L ALT (21-72) U/L Alkaline Phosphatase (38-126) U/L Total Protein (6.3-8.2) g/dL Albumin (3.5-5.0) g/dL Urine Color Light Yellow Urine Appearance Clear (Clear) Urine pH 5.0 (5.0-8.0) Ur Specific [place] 1.006 (1.001-1.035) Urine Protein Negative (Negative) Urine Glucose (UA) Negative (Negative) Urine Ketones Negative (Negative) Urine Blood Negative (Negative) Urine Nitrite Negative (Negative) Urine Bilirubin Negative (Negative) Urine Urobilinogen <2.0 (<2.0) mg/dL Ur Leukocyte Esterase Negative (Negative) Salicylates mg/dL Urine Opiates Screen Not Detected (NotDetected) Ur Oxycodone Screen Not Detected (NotDetected) Urine Methadone Screen Not Detected (NotDetected) Ur Propoxyphene Screen Not Detected (NotDetected) Acetaminophen ug/mL Ur Barbiturates Screen Not Detected (NotDetected) U Tricyclic Antidepress Not Detected (NotDetected) Ur Phencyclidine Scrn Not Detected (NotDetected) Ur Amphetamines Screen Not Detected (NotDetected) U Methamphetamines Scrn Not Detected (NotDetected) U Benzodiazepines Scrn Detected H (NotDetected) Urine Cocaine Screen Not Detected (NotDetected) U Marijuana (THC) Screen Not Detected (NotDetected) Serum Alcohol mg/dL 02/23/18 02/23/18 Range/Units 02:59 03:39 WBC (3.8-10.6) k/uL RBC (4.30-5.90) m/uL Hgb (13.0-17.5) gm/dL Hct (39.0-53.0) % MCV (80.0-100.0) fL MCH (25.0-35.0) pg MCHC (31.0-37.0) g/dL RDW (11.5-15.5) % Plt Count (150-450) k/uL Neutrophils % % Lymphocytes % % Monocytes % % Eosinophils % % Basophils % % Neutrophils # (1.3-7.7) k/uL Lymphocytes # (1.0-4.8) k/uL Monocytes # (0-1.0) k/uL Eosinophils # (0-0.7) k/uL Basophils # (0-0.2) k/uL PT (9.0-12.0) sec INR (<1.2) Sample Site rbrac ABG pH 7.28 L (7.35-7.45) ABG pCO2 51 H (35-45) mmHg ABG pO2 331 H (83-108) mmHg ABG HCO3 24 (21-25) mmol/L ABG Total CO2 26 H (19-24) mmol/L ABG O2 Saturation 100.0 H (94-97) % ABG Base Excess -2.5 mmol/L [place] Test no FiO2 100 % Sodium (137-145) mmol/L Potassium (3.5-5.1) mmol/L Chloride (98-107) mmol/L Carbon Dioxide (22-30) mmol/L Anion Gap mmol/L BUN (9-20) mg/dL Creatinine (0.66-1.25) mg/dL Est GFR (CKD-EPI)AfAm (>60 ml/min/1.73 sqM) Est GFR (CKD-EPI)NonAf (>60 ml/min/1.73 sqM) Glucose (74-99) mg/dL POC Glucose (mg/dL) (75-99) mg/dL POC Glu Computer Game Tester ID Lactic Ac Sepsis Rflx Y Plasma Lactic Acid Alexey (0.7-2.0) mmol/L Calcium (8.4-10.2) mg/dL Total Bilirubin (0.2-1.3) mg/dL AST (17-59) U/L ALT (21-72) U/L Alkaline Phosphatase (38-126) U/L Total Protein (6.3-8.2) g/dL Albumin (3.5-5.0) g/dL Urine Color Urine Appearance (Clear) Urine pH (5.0-8.0) Ur Specific [place] (1.001-1.035) Urine Protein (Negative) Urine Glucose (UA) (Negative) Urine Ketones (Negative) Urine Blood (Negative) Urine Nitrite (Negative) Urine Bilirubin (Negative) Urine Urobilinogen (<2.0) mg/dL Ur Leukocyte Esterase (Negative) Salicylates mg/dL Urine Opiates Screen (NotDetected) Ur Oxycodone Screen (NotDetected) Urine Methadone Screen (NotDetected) Ur Propoxyphene Screen (NotDetected) Acetaminophen ug/mL Ur Barbiturates Screen (NotDetected) U Tricyclic Antidepress (NotDetected) Ur Phencyclidine Scrn (NotDetected) Ur Amphetamines Screen (NotDetected) U Methamphetamines Scrn (NotDetected) U Benzodiazepines Scrn (NotDetected) Urine Cocaine Screen (NotDetected) U Marijuana (THC) Screen (NotDetected) Serum Alcohol mg/dL Critical Care Time Critical Care Time: Yes Total Critical Care Time: 30 Disposition Clinical Impression: Drug overdose Disposition: ADMITTED IP TO THIS HOSP
[2018-02-23] MEDS ORDERED: GLUCAGON 1 MG/ML VIAL IVP STA ×2 (02:37→06:55)
[2018-02-23 02:39] LABS: Basophils # (A) 0.1 k/uL (0-0.2); Basophils % (A) 1 %; Eosinophils # (A) 0.2 k/uL (0-0.7); Eosinophils % (A) 2 %; HCT 46.2 % (39.0-53.0); HGB 15.7 gm/dL (13.0-17.5); Lymphocytes # (A) 3.9 k/uL (1.0-4.8); Lymphocytes % (A) 45 %; MCH 30.6 pg (25.0-35.0); Mean Platelet Volume 8.6; Monocytes # (A) 0.6 k/uL (0-1.0); Monocytes % (A) 6 %; Neutrophils # (A) 3.8 k/uL (1.3-7.7); Neutrophils % (A) 43 %; Platelet Count 219 k/uL (150-450); RBC 5.13 m/uL (4.30-5.90); RDW 14.3 % (11.5-15.5); WBC 8.7 k/uL (3.8-10.6)
[2018-02-23 02:41] LABS: Appearance,Urine Clear (Clear); Bilirubin,Urine Negative (Negative); Blood,Urine Negative (Negative); Color,Urine Light Yellow; Glucose,Urine (UA) Negative (Negative); Ketones,Urine Negative (Negative); Leukocyte Esterase,Urine Negative (Negative); Nitrite,Urine Negative (Negative); Protein,Urine Negative (Negative); Specific Gravity,Urine 1.006 (1.001-1.035); Urobilinogen,Urine <2.0 mg/dL (<2.0)
[2018-02-23 02:46] LABS: Prothrombin Time 10.1 sec (9.0-12.0)
[2018-02-23] MEDS ORDERED: SODIUM CHLORIDE 0.9% 1,000 ML IV ONE (02:50)
[2018-02-23] MEDS ORDERED: ETOMIDATE 2 MG/ML 10 ML VIAL IV STA (02:50)
[2018-02-23] MEDS ORDERED: ACTIVATED CHARCOAL 50 GM/240 ML BOTTLE PO STA (02:51)
[2018-02-23 02:53] LABS: ALT 34 U/L (21-72); AST 29 U/L (17-59); Acetaminophen <10.0 ug/mL; Albumin 4.8 g/dL (3.5-5.0); Alkaline Phosphatase 95 U/L (38-126); Anion Gap 17 mmol/L; Blood Urea Nitrogen 23 mg/dL (9-20); Calcium 9.2 mg/dL (8.4-10.2); Carbon Dioxide 23 mmol/L (22-30); Chloride 101 mmol/L (98-107); Glucose 109 mg/dL (74-99); Salicylate <1.0 mg/dL; Sodium 141 mmol/L (137-145); Total Bilirubin 0.6 mg/dL (0.2-1.3); Total Protein 8.6 g/dL (6.3-8.2)
[2018-02-23 02:56] LABS: Amphetamine Screen,Urine Not Detected (NotDetected); Barbiturate Screen,Urine Not Detected (NotDetected); Benzodiazepines Screen,Urine Detected (NotDetected); Cocaine Screen,Urine Not Detected (NotDetected); Methadone Screen, Urine Not Detected (NotDetected); Opiate Screen,Urine Not Detected (NotDetected); Oxycodone Screen, Urine Not Detected (NotDetected); Phencyclidine Screen,Urine Not Detected (NotDetected); Tricyclic Antidepressant,Urine Not Detected (NotDetected); Urn Cannabinoid Scrn Not Detected (NotDetected)
[2018-02-23 02:59] LABS: Alcohol 181 mg/dL
[2018-02-23] MEDS ORDERED: GLUCAGON 1 MG/ML VIAL IVP ONE (03:00)
[2018-02-23] MEDS ORDERED: fentaNYL (PF) 50 MCG/ML 2 ML AMP IV STA (03:03)
[2018-02-23] MEDS ORDERED: SUCCINYLCHOLINE CHLORIDE VIAL 200 MG/10 ML VIAL IV STA (03:03)
[2018-02-23] MEDS ORDERED: KETAMINE IV SCH (03:30)
[2018-02-23] MEDS ORDERED: SODIUM CHLORIDE 0.9% IV SCH (03:30)
[2018-02-23] MEDS ORDERED: fentaNYL (PF) 2,500 MCG in SODIUM CHLORIDE 0.9% 200 ML IV SCH (03:30)
--- NOTE | 2018-02-23 03:41 | XR ---
EXAMINATION TYPE: XR chest 1V DATE OF EXAM: 02/23/2018 COMPARISON: 01/14/2018 HISTORY: Intubation. Respiratory failure TECHNIQUE: Single frontal view of the chest is obtained. FINDINGS: Endotracheal tube is 4 cm from the joanne. There is no heart failure seen. Heart appears e nlarged. There are chest leads. There is nasogastric tube. IMPRESSION: Endotracheal tube is in good position. No gross heart failure. No significant change.
[2018-02-23 03:46] LABS: ABG Base Excess -2.5 mmol/L; ABG HCO3 24 mmol/L (21-25); ABG PCO2 51 mmHg (35-45); ABG PH 7.28 (7.35-7.45); ABG PO2 331 mmHg (83-108); ABG TCO2 26 mmol/L (19-24)
[2018-02-23] MEDS: SODIUM CHLORIDE 0.9% 1,000 ML IV SCH ×3 (03:48→18:45)
[2018-02-23] MEDS ORDERED: NALOXONE 0.4 MG/ML 1 ML VIAL IV PRN (04:12)
[2018-02-23 05:04] LABS: Glucose,Whole Blood 158 mg/dL (75-99)
[2018-02-23] MEDS ORDERED: ALBUTEROL NEBULIZED 2.5 MG/3 ML INHALATION PRN (05:28)
[2018-02-23] MEDS ORDERED: DIPHENOX-ATROP 2.5-0.025 MG 1 EACH TAB PO PRN (05:28)
[2018-02-23] MEDS ORDERED: BETAMETHASONE DIPROPIONATE 0.05% CREAM 15 GM TUBE TOPICAL PRN (05:28)
[2018-02-23] MEDS ORDERED: ONDANSETRON 4 MG/2 ML VIAL IVP PRN (05:28)
--- NOTE | 2018-02-23 05:35 | P.HPIM ---
History of Present Illness H&P Date: 02/23/18 Chief Complaint: overdose Patient is a 57-year-old male with a past medical history of hypertension, HIV, GERD, BPH, chronic pain, and congestive heart failure who presented with his significant other after an intentional overdose. He was recently hospitalized here from 01/14/2018 through 01/16/2018 for acute renal failure. On discharge his creatinine was 1.4. Today he was at home and took an overdose of 15-20 tablets of his 10 mg value, 5 trazodone, 8-10 of his metoprolol succinate. He then presented to the emergency department via private vehicle. On arrival to the ER his blood pressure was 76/50. He did become unresponsive when they tried to sit him forward. He had ingested the medications approximately 1:30. At 3:00 he received 1 dose of glucagon IV push secondary to his low blood pressure. He also received a dose of activated charcoal. He remained somnolent in the ER and the decision was made to electively intubate him. Poison control was contacted and agreed with intubation and glucagon use. They also provided a beta trish overdose protocol. Since administrating of the glucagon and intubation his blood pressure has maintained a systolic of greater than 100. He was placed on ketamine for sedation to avoid issues with hypotension. Dr. Pino his PCP was contacted and requested us to admit the patient. We will be placed in ICU and Dr. Mendiola and was contacted by the ER. Patient seen and examined in the ER with his partner present. He is currently intubated and on ketamine however is awake and able to respond appropriately to questions with yes/no. He indicates that he was depressed minutes by he overdosed on medications. He does have a history of depression. He does not see a psychiatrist. He has never been hospitalized for psychiatric reasons before. He does admit to a history of overdose in the past. He denies suicide at this point in time. He also denies any recent cough, cold, fever, flu, nausea, or vomiting. He has been struggling with chronic diarrhea for the last 6 months. He has not seen a GI doctor or had a colonoscopy done. He denies any chest pain or shortness of breath. He follows with Dr. Pino regularly and last saw him earlier this month. He also follows with cardiology at [facility]. He is able to indicate that he has a advanced directive. That he is a full code. Marcella keith is his decision maker. We do not have a copy of this on file and I have asked him to provide one for us. Review of Systems Review of systems as able to obtain in [facility], review of systems is limited secondary to intubation and patient being sedated with ketamine. Past Medical History Past Medical History: Asthma, Heart Failure, Fibromyalgia, GERD/Reflux, Hypertension, Prostate Disorder Additional Past Medical History / Comment(s): Cardiomyopathy, enlarged aorta, occasionally heart "skips a beat", HIV positive, past HTN and recently low blood pressures, BPH, R ankle gout, chronic nausea, bilateral glaucoma, DDD, chronic pain syndrome, chronic low back and bilateral hip pain and occasional cervical pain, DDD, lumbar stenosis/spondylosis, abdominal hernia History of Any Multi-Drug Resistant Organisms: None Reported Past Surgical History: Heart Catheterization, Hernia Repair, Orthopedic Surgery Additional Past Surgical History / Comment(s): Mitral valve repair at [facility], R inguinal hernia x2, L inguinal hernia, epidural injections to back, hip injections, RFAs, spinal cord stimulator trial. Past Anesthesia/Blood Transfusion Reactions: No Reported Reaction Past Psychological History: Anxiety, Depression Smoking Status: Light tobacco smoker Past Alcohol Use History: Occasional Past Drug Use History: None Reported Additional History: Lives with his partner - Past Family History Father Additional Family Medical History / Comment(s): Father was injured at work and of complication during his hospitalization. Mother Additional Family Medical History / Comment(s): Mother is from alcoholism. Medications and Allergies Home Medications Medication Instructions Recorded Confirmed Type Betamethasone Valerate 1 applic TOPICAL DAILY PRN 09/06/17 02/23/18 History [Betamethasone Valerate 0.1%] Bimatoprost [Lumigan .01% Ophth 1 drop BOTH EYES HS 09/06/17 02/23/18 History Soln] Cetirizine HCl [Zyrtec] 10 mg PO HS 09/06/17 02/23/18 History Diazepam 10 mg PO HS 09/06/17 02/23/18 History Doxazosin [Cardura] 1 mg PO HS 09/06/17 02/23/18 History Elviteg/Chasidy/Emtric/Tenofo Dis 1 tab PO HS 09/06/17 02/23/18 History [Stribild Tablet] Ondansetron HCl [Zofran] 8 mg PO DAILY PRN 09/06/17 02/23/18 History traZODone HCL [Desyrel] 200 mg PO HS 09/06/17 02/23/18 History Allopurinol [Zyloprim] 100 mg PO BID 11/01/17 02/23/18 History Metoprolol Succinate (ER) [Toprol 100 mg PO HS 11/01/17 02/23/18 History XL] Salmeterol Xinafoate [Serevent 1 puff INHALATION RT-BID PRN 11/01/17 02/23/18 History Diskus] Testosterone 1 applic TOPICAL DAILY 11/01/17 02/23/18 History valACYclovir HCL [Valtrex] 500 mg PO Q8HR PRN 11/01/17 02/23/18 History Esomeprazole Magnesium [NexIUM] 40 mg PO HS 01/14/18 02/23/18 History diphenhydrAMINE HCL [Benadryl] 25 mg PO HS 01/14/18 02/23/18 History Diphenox-Atrop 2.5-0.025 mg 1 each PO Q6HR PRN #12 tab 01/16/18 02/23/18 Rx [Lomotil] hydrALAZINE HCL [Apresoline] 25 mg PO TID #90 tab 01/16/18 02/23/18 Rx Allergies Allergy/AdvReac Type Severity Reaction Status Date / Time abacavir [From Ziagen] Allergy Anaphylaxis Verified 01/14/18 11:03 efavirenz [From Sustiva] Allergy Anaphylaxis Verified 01/14/18 11:03 hydrocodone Allergy Rapid Verified 01/14/18 11:03 [From Hysingla ER] Heart Rate sulfamethoxazole Allergy HIGH Verified 01/14/18 11:03 [From Bactrim] CREATININE LEVEL trimethoprim [From Bactrim] Allergy HIGH Verified 01/14/18 11:03 CREATININE morphine AdvReac Itching Verified 01/14/18 11:03 Physical Exam Osteopathic Statement: *. No significant issues noted on an osteopathic structural exam other than those noted in the History and Physical/Consult. Vitals: Vital Signs Temp Pulse Resp BP Pulse Ox 02/23/18 05:18 54 L 16 90/62 97 02/23/18 05:06 55 L 16 90/57 96 02/23/18 04:53 56 L 16 94/63 96 02/23/18 04:43 55 L 16 100/65 99 02/23/18 04:29 56 L 16 100/61 98 02/23/18 04:23 56 L 16 100/61 98 02/23/18 04:18 56 L 16 103/67 99 02/23/18 04:13 58 L 16 106/76 98 02/23/18 04:03 58 L 18 106/72 98 02/23/18 03:58 56 L 16 101/62 99 02/23/18 03:53 58 L 18 93/51 99 02/23/18 03:43 62 15 113/65 100 02/23/18 03:23 112 H 17 101/62 99 02/23/18 03:19 122 H 15 122/98 98 02/23/18 03:13 130 H 14 132/78 02/23/18 03:05 118 H 14 155/93 02/23/18 02:42 66 14 88/54 95 02/23/18 02:39 65 15 109/71 97 02/23/18 02:23 66 14 98/70 99 02/23/18 02:18 68 13 107/77 98 02/23/18 02:05 98.1 F 73 20 76/50 92 L Intake and Output 02/22/18 02/22/18 02/23/18 14:59 22:59 06:59 Intake Total 11.8 Output Total 550 Balance -538.2 Intake: Intake, IV Titration 11.8 Amount Ketamine 500 mg In Sodium 11.8 Chloride 0.9% 240 ml @ Per Protocol IV .Q0M [facility] Rx#:[id number] Output: Gastric Drainage 400 Urine 150 Other: Weight 105.233 kg General: non toxic, ill-appearing, appears at stated age, obese Derm: no unusual rashes/lesions no unusual ecchymoses, warm, dry Head: atraumatic, normocephalic, symmetric Eyes: EOMI, no lid lag, anicteric sclera, pupils equal round reactive to light ENT: Nose and ears atraumatic, intubated with ET tube in place, Neck: No thyromegaly, no cervical lymphadenopathy, trachea midline, supple Mouth: no lip lesion, mucus membranes moist Cardiovascular: S1S2 reg, no murmur, positive posterior tibial pulse bilateral, no edema, capillary refill less than 2 seconds Lungs: CTA bilateral, no rhonchi, no rales , no accessory muscle use, on ventilator Abdominal: soft, nontender to palpation, no guarding, no appreciable organomegaly, normal bowel sounds Ext: no gross muscle atrophy, muscle strength 5 out of 5 in all 4 extremities grossly, no contractures, Neuro: CN II-XI grossly intact, light touch intact all 4 extremities, finger to nose within normal limits, Psych: Alert, oriented, appropriate affect Results CBC & Chem 7: 02/23/18 02:14 02/23/18 02:14 Labs: Abnormal Lab Results - Last 24 Hours (Table) 02/23/18 02/23/18 02/23/18 Range/Units 02:14 02:14 02:17 ABG pH (7.35-7.45) ABG pCO2 (35-45) mmHg ABG pO2 (83-108) mmHg ABG Total CO2 (19-24) mmol/L ABG O2 Saturation (94-97) % BUN 23 H (9-20) mg/dL Creatinine 1.40 H (0.66-1.25) mg/dL Glucose 109 H (74-99) mg/dL POC Glucose (mg/dL) 108 H (75-99) mg/dL Plasma Lactic Acid Alexey 2.4 H* (0.7-2.0) mmol/L Total Protein 8.6 H (6.3-8.2) g/dL U Benzodiazepines Scrn (NotDetected) 02/23/18 02/23/18 02/23/18 Range/Units 02:28 03:39 04:48 ABG pH 7.28 L (7.35-7.45) ABG pCO2 51 H (35-45) mmHg ABG pO2 331 H (83-108) mmHg ABG Total CO2 26 H (19-24) mmol/L ABG O2 Saturation 100.0 H (94-97) % BUN (9-20) mg/dL Creatinine (0.66-1.25) mg/dL Glucose (74-99) mg/dL POC Glucose (mg/dL) 158 H (75-99) mg/dL Plasma Lactic Acid Alexey (0.7-2.0) mmol/L Total Protein (6.3-8.2) g/dL U Benzodiazepines Scrn Detected H (NotDetected) Chest x-ray: report reviewed Thrombosis Risk Factor Assmnt - DVT/VTE Prophylaxis DVT/VTE Prophylaxis: Pharmacologic Prophylaxis ordered Assessment and Plan Assessment: Intentional Overdose with beta trish, benzodiazepine, and trazodone -Poison control is already been contacted and provided a beta trish overdose protocol -Will need psych evaluation once extubated awake and talking -Supportive care -Follow blood Syncope, Orthostatic due to low blood pressure - No need to repeat echo was done 01/16 and no significant valvular dysfunction with preserved EF - Tele - repeat orthostatic vital signs once extubated. Elevated lactic acid -IV fluids -Repeat lactic acid Acute hypercapnic Respiratory failure secondary to sedation from overdose -Ventilator management and pulmonary critical care Compensated diastolic congestive heart failure with ejection fraction 55-60% -Hold beta trish secondary to overdose -Not chronically on diuretic at this point in time, recently discontinued secondary to acute kidney injury -Gentle fluids secondary to low blood pressure will need to follow fluid status closely. Hypertension now hypotensive -Metoprolol and hydralazine on hold -Follow blood pressures GERD -PPI BPH -Hold Cardura -Hold Flomax secondary to hypotension -Resume once hypotension resolved Asthma -Continue with bronchodilators HIV -Continue with HIV medications as patient will need to provide from home - Consult Dr. Pino for management Chronic diarrhea -Continue with Lomotil as needed The patient is admitted with an anticipated greater than 2 midnight stay for evaluation of intentional overdose and hypotension. Surrogate decision-maker: Marcella keith CODE STATUS: Full DVT prophylaxis: Lovenox Discussed with: Patient, ED physician, ED nursing, patient significant other Anticipated discharge date: 2-[address]: Home versus mental health A total of 65 minutes was spent on the care of this complex patient more than 50 % of the time was spent in counseling and care coordination.
[2018-02-23 05:52] LABS: Glucose,Whole Blood 102 mg/dL (75-99)
[2018-02-23 06:54] LABS: Basophils % (A) 1 %; Eosinophils # (A) 0.1 k/uL (0-0.7); Eosinophils % (A) 2 %; HCT 40.2 % (39.0-53.0); HGB 13.5 gm/dL (13.0-17.5); Lymphocytes # (A) 2.6 k/uL (1.0-4.8); Lymphocytes % (A) 40 %; MCHC 33.5 g/dL (31.0-37.0); MCV 92.4 fL (80.0-100.0); Mean Platelet Volume 8.3; Monocytes # (A) 0.4 k/uL (0-1.0); Monocytes % (A) 6 %; Neutrophils # (A) 3.2 k/uL (1.3-7.7); Neutrophils % (A) 49 %; Platelet Count 180 k/uL (150-450); RBC 4.34 m/uL (4.30-5.90); RDW 14.6 % (11.5-15.5); WBC 6.4 k/uL (3.8-10.6)
[2018-02-23] MEDS ORDERED: SODIUM CHLORIDE 0.9% 500 ML IV ONE (06:55)
[2018-02-23 07:03] LABS: Anion Gap 11 mmol/L; Blood Urea Nitrogen 23 mg/dL (9-20); Carbon Dioxide 20 mmol/L (22-30); Chloride 110 mmol/L (98-107); Glucose 119 mg/dL (74-99); Magnesium 1.9 mg/dL (1.6-2.3); Potassium 3.8 mmol/L (3.5-5.1); Sodium 141 mmol/L (137-145)
[2018-02-23] MEDS: IPRATROPIUM-ALBUTEROL 3 ML NEB INHALATION SCH ×5 (07:52→23:53)
[2018-02-23] MEDS: FORMOTEROL FUMARATE 20 MCG/2 ML NEBU INHALATION SCH ×2 (07:52→19:47)
[2018-02-23] MEDS: WATER IV SCH ×12 (09:09→16:46)
[2018-02-23] MEDS: GLUCAGON IV SCH ×12 (09:09→16:46)
[2018-02-23] MEDS: DEXTROSE 5% IV SCH ×12 (09:09→16:46)
[2018-02-23] MEDS ORDERED: NON-FORMULARY DRUG (Ondansetron Hcl [Zofran] 8 MG) PO PRN (09:33)
[2018-02-23] MEDS: CHLORHEXIDINE GLUCONATE 15 ML CUP MUCOUS MEM SCH ×2 (10:09→21:26)
[2018-02-23] MEDS: HEPARIN SODIUM,PORCINE 5,000 UNIT/ML 1 ML VIAL SQ SCH ×2 (10:11→16:56)
[2018-02-23] MEDS: PANTOPRAZOLE 40 MG/10 ML VIAL IV SCH (10:11)
--- NOTE | 2018-02-23 10:32 | P.PN ---
Progress Note - Text Progress Note Date: 02/23/18 Patient was seen and examined, he is still on glucagon drip because of the beta trish overdose. Blood pressure is still marginal. He is currently on IV fluids. Patient took 10 tablets of metoprolol extended release, anticipated to be out of his system completely by tomorrow. He does not have any complaints at this point, no chest pain or shortness of breath.
[2018-02-23 10:40] VITALS: BMI 36.3
[2018-02-23 12:49] LABS: Glucose,Whole Blood 136 mg/dL (75-99)
--- NOTE | 2018-02-23 13:18 | P.CNPUL ---
History of Present Illness Consult date: 02/23/18 Chief complaint: Intentional drug overdose, acute alcohol intoxication History of present illness: This is a 57-year-old male patient, who came in yesterday with drug overdose. The patient was brought in by his net thickened. The patient has multiple medical problems. He has been diagnosed with HIV and currently is on antiretrovirals and treatment. He also has history of mitral valve disease that was surgically repaired and the patient has issues with hypertension and BPH. The patient was hospitalized between and 01/16/2018 for an acute kidney failure and the patient recovered and the time of discharge the creatinine was at 1.4. He came into the hospital after he overdosed on 20 tablets of Valium 10 mg, 10 tablets of trazodone 50 mg, around 15 tablets of metoprolol succinate probably 100 mg. The patient also drank alcohol and his alcohol level was elevated at 180 at a time of admission. He came into the emergency department. His blood pressure was 76/50. He was bradycardic. He received glucagon. He was electively intubated. He was given activated charcoal through his NG. He has also gastric lavage with pieces of hidalgo were out of his stomach. He was given IV fluids. Following that he came into the intensive care unit. In the ICU, the patient continued to resuscitated with IV fluids yet he continued to have on and off hypotension and bradycardia, sinus and I put him on a glucagon drip at 0.1 mg per KG per minute. He was also given ketamine drip for sedation throughout the retail personal banker hours. This morning at a time of my arrival at around 8:30 AM, I find this patient widely awake and communicating to me even while being intubated. He was able to write down and he was found to be very appropriate. He was still on a glucagon drip. He was in a normal sinus rhythm. I reviewed the EKGs. I noted the events that occurred yesterday. No seizure activity has been noted. I check his weaning parameters which do not to be excellent and I also reviewed the chest x- ray which do not to be within normal limits. At that point I decide to extubate this patient to a nasal cannula. Extubation was fine and the patient is currently off sedation, off ketamine, on 2 L of oxygen nasal cannula, communicating and answering questions and I was able to get a sitter at the bedside for suicide precautions. This seems to be an intentional overdose. He has no complaints. Review of Systems Review of system as mentioned above no headache, no visual changes, no shortness of breath, no chest pain, he has chronic back pain and chronic myalgias and arthralgias and chronic gout, no skin ulcerations or wounds or signs of trauma, he suffers from chronic anxiety and depression and he has some difficulties with mobility and gait. No seizure activity has been noted. No nausea. No vomiting. No aspiration. No dysuria free through emergency. He has issues with drinking alcohol and he was having issues with anorexia and nausea and vomiting for which she was hospitalized earlier with acute kidney failure and subsequently recovered. His creatinine was as high as 7.1 and it seems to have normalized. Past Medical History Past Medical History: Asthma, Heart Failure, Fibromyalgia, GERD/Reflux, Hypertension, Prostate Disorder Additional Past Medical History / Comment(s): Cardiomyopathy, with a normal left ventricle ejection fraction based on the most recent echocardiogram that is available to us. The patient undergone mitral valve surgery, possibly repair versus placement, HIV positive, past HTN and recently low blood pressures , BPH, R ankle gout, chronic nausea, bilateral glaucoma, DDD, chronic pain syndrome, chronic low back and bilateral hip pain and occasional cervical pain, DDD, lumbar stenosis/spondylosis, abdominal hernia History of Any Multi-Drug Resistant Organisms: None Reported Past Surgical History: Heart Catheterization, Hernia Repair, Orthopedic Surgery Additional Past Surgical History / Comment(s): Mitral valve repair at [facility], R inguinal hernia x2, L inguinal hernia, epidural injections to back, hip injections, RFAs, spinal cord stimulator trial. Past Anesthesia/Blood Transfusion Reactions: No Reported Reaction Past Psychological History: Anxiety, Depression Smoking Status: Light tobacco smoker - Past Family History Father Additional Family Medical History / Comment(s): Father was injured at work and of complication during his hospitalization. Mother Additional Family Medical History / Comment(s): Mother is from alcoholism. Medications and Allergies Home Medications Medication Instructions Recorded Confirmed Type Betamethasone Valerate 1 applic TOPICAL DAILY PRN 09/06/17 02/23/18 History [Betamethasone Valerate 0.1%] Bimatoprost [Lumigan .01% Ophth 1 drop BOTH EYES HS 09/06/17 02/23/18 History Soln] Cetirizine HCl [Zyrtec] 10 mg PO HS 09/06/17 02/23/18 History Diazepam 10 mg PO HS 09/06/17 02/23/18 History Doxazosin [Cardura] 1 mg PO HS 09/06/17 02/23/18 History Elviteg/Chasidy/Emtric/Tenofo Dis 1 tab PO HS 09/06/17 02/23/18 History [Stribild Tablet] Ondansetron HCl [Zofran] 8 mg PO DAILY PRN 09/06/17 02/23/18 History traZODone HCL [Desyrel] 200 mg PO HS 09/06/17 02/23/18 History Allopurinol [Zyloprim] 100 mg PO BID 11/01/17 02/23/18 History Metoprolol Succinate (ER) [Toprol 100 mg PO HS 11/01/17 02/23/18 History XL] Salmeterol Xinafoate [Serevent 1 puff INHALATION RT-BID 11/01/17 02/23/18 History Diskus] Testosterone 1 applic TOPICAL DAILY 11/01/17 02/23/18 History valACYclovir HCL [Valtrex] 500 mg PO Q8HR PRN 11/01/17 02/23/18 History Esomeprazole Magnesium [NexIUM] 40 mg PO HS 01/14/18 02/23/18 History diphenhydrAMINE HCL [Benadryl] 25 mg PO HS 01/14/18 02/23/18 History hydrALAZINE HCL [Apresoline] 25 mg PO TID #90 tab 01/16/18 02/23/18 Rx Loperamide HCl [Imodium A-D] 2 - 4 mg PO Q4H PRN 02/23/18 02/23/18 History Allergies Allergy/AdvReac Type Severity Reaction Status Date / Time abacavir [From Ziagen] Allergy Anaphylaxis Verified 02/23/18 10:57 efavirenz [From Sustiva] Allergy Anaphylaxis Verified 02/23/18 10:57 hydrocodone Allergy Rapid Verified 02/23/18 10:57 [From Hysingla ER] Heart Rate sulfamethoxazole Allergy HIGH Verified 02/23/18 10:57 [From Bactrim] CREATININE LEVEL trimethoprim [From Bactrim] Allergy HIGH Verified 02/23/18 10:57 CREATININE morphine AdvReac Itching Verified 02/23/18 10:57 Physical Exam Vitals: Vital Signs Temp Pulse Resp BP Pulse Ox 02/23/18 11:52 63 02/23/18 11:39 95 02/23/18 11:36 62 02/23/18 11:00 66 20 91/56 93 L 02/23/18 10:45 65 37 H 97/63 95 02/23/18 10:30 62 20 85/51 95 02/23/18 10:15 65 23 86/54 94 L 02/23/18 10:00 66 23 89/55 95 02/23/18 09:45 67 32 H 112/66 95 02/23/18 09:30 62 18 108/71 98 02/23/18 09:15 60 18 86/62 98 02/23/18 09:00 60 21 103/72 99 02/23/18 08:45 60 12 101/68 98 02/23/18 08:30 61 69 H 84/67 99 02/23/18 08:15 62 13 82/57 98 02/23/18 08:05 66 02/23/18 08:04 66 02/23/18 08:00 98.8 F 70 19 103/63 95 02/23/18 07:52 67 02/23/18 07:45 75 20 108/75 98 02/23/18 07:30 59 L 15 84/55 98 02/23/18 07:15 58 L 16 104/68 99 02/23/18 07:00 57 L 13 88/61 97 02/23/18 06:45 56 L 14 79/56 98 02/23/18 06:30 57 L 17 80/57 98 02/23/18 06:15 58 L 18 107/74 99 02/23/18 06:00 57 L 101/69 99 02/23/18 05:52 58 L 02/23/18 05:45 97.6 F 55 L 16 96/56 98 02/23/18 05:18 54 L 16 90/62 97 02/23/18 05:06 55 L 16 90/57 96 02/23/18 04:53 56 L 16 94/53 96 02/23/18 04:43 55 L 16 100/65 99 02/23/18 04:29 56 L 16 100/61 98 02/23/18 04:23 56 L 16 100/61 98 02/23/18 04:18 56 L 16 103/67 99 02/23/18 04:13 58 L 16 106/76 98 02/23/18 04:03 58 L 18 106/72 98 02/23/18 03:58 56 L 16 101/62 99 02/23/18 03:53 58 L 18 93/51 99 02/23/18 03:43 62 15 113/65 100 02/23/18 03:23 112 H 17 101/62 99 02/23/18 03:19 122 H 15 122/98 98 02/23/18 03:13 130 H 14 132/78 02/23/18 03:05 118 H 14 155/93 02/23/18 02:42 66 14 88/54 95 02/23/18 02:39 65 15 109/71 97 02/23/18 02:23 66 14 98/70 99 02/23/18 02:18 68 13 107/77 98 02/23/18 02:05 98.1 F 73 20 76/50 92 L Intake and Output 02/22/18 02/23/18 02/23/18 22:59 06:59 14:59 Intake Total 11.8 2000 Output Total 550 390 Balance -538.2 1610 Intake: IV 1800 0.9 NACL 300 0.9 NACL bolus 1500 Intake, IV Titration 11.8 200 Amount Glucagon 10 mg In 200 Dextrose 5% in Water 100 ml @ 100 mls/hr IV .Q1H ALEX Rx#:[id number] Ketamine 500 mg In Sodium 11.8 Chloride 0.9% 240 ml @ Per Protocol IV .Q0M ALEX Rx#:[id number] Output: Gastric Drainage 400 Urine 150 390 Other: Voiding Method Indwelling Catheter # Bowel Movements 0 Weight 105.2 kg 57-year-old male who has difficulties with obesity presents drug overdose, he was intubated and I was able to extubate the patient for a nasal cannula. HEENT: Anicteric conjunctiva are pink and moist nasal mucosa grossly intact without significant lesions, there is no thrush. Mouth is dry Neck: The neck is supple without significant lymphadenopathy or thyromegaly. Lungs: Good bilateral air entry without significant crackles or wheezing. There is no significant bronchial sounds. There is no egophony or dullness. Heart: Regular without arrhythmia, no cervical murmur click or rub PMI is nondisplaced audible S1 and S2 Abdomen: Obese, Positive bowel sounds soft and nontender without palpable masses or organomegaly. There was no guarding or rebound. Extremities: The upper extremities have excellent pulses they are symmetric, no significant petechiae or telangiectasia. No splinter hemorrhages were noted. The lower extremities have trace edema. The peripheral pulses were 2+ and symmetric. Neuro: Awake alert oriented to person place and time. There are no acute new gross focal sensory motor deficits. Results - Laboratory Findings CBC and BMP: 02/23/18 06:38 02/23/18 06:38 ABG ABG pH 7.28 (7.35-7.45) L 02/23/18 03:39 ABG pCO2 51 mmHg (35-45) H 02/23/18 03:39 ABG pO2 331 mmHg (83-108) H 02/23/18 03:39 ABG O2 Saturation 100.0 % (94-97) H 02/23/18 03:39 PT/INR, D-dimer PT 10.1 sec (9.0-12.0) 02/23/18 02:14 INR 1.0 (<1.2) 02/23/18 02:14 Abnormal lab findings: Abnormal Labs 02/23/18 02/23/18 02/23/18 02:14 02:14 02:17 ABG pH ABG pCO2 ABG pO2 ABG Total CO2 ABG O2 Saturation Chloride Carbon Dioxide BUN 23 H Creatinine 1.40 H Glucose 109 H POC Glucose (mg/dL) 108 H Plasma Lactic Acid Alexey 2.4 H* Calcium Phosphorus Total Protein 8.6 H U Benzodiazepines Scrn 02/23/18 02/23/18 02/23/18 02:28 03:39 04:48 ABG pH 7.28 L ABG pCO2 51 H ABG pO2 331 H ABG Total CO2 26 H ABG O2 Saturation 100.0 H Chloride Carbon Dioxide BUN Creatinine Glucose POC Glucose (mg/dL) 158 H Plasma Lactic Acid Alexey Calcium Phosphorus Total Protein U Benzodiazepines Scrn Detected H 02/23/18 02/23/18 02/23/18 05:51 06:38 06:38 ABG pH ABG pCO2 ABG pO2 ABG Total CO2 ABG O2 Saturation Chloride 110 H Carbon Dioxide 20 L BUN 23 H Creatinine Glucose 119 H POC Glucose (mg/dL) 102 H Plasma Lactic Acid Alexey 2.6 H* Calcium 8.0 L Phosphorus 2.0 L Total Protein U Benzodiazepines Scrn 02/23/18 12:47 ABG pH ABG pCO2 ABG pO2 ABG Total CO2 ABG O2 Saturation Chloride Carbon Dioxide BUN Creatinine Glucose POC Glucose (mg/dL) 136 H Plasma Lactic Acid Alexey Calcium Phosphorus Total Protein U Benzodiazepines Scrn - Diagnostic Findings Chest x-ray: image reviewed Assessment and Plan Plan: Assessment 1 intentional drug overdose with a combination of Lopressor, trazodone, Valium and alcohol intoxication, the patient was intubated and placed on a mechanical ventilator. He underwent gastric lavage with subsequent activated charcoal treatment. 2 altered mentation secondary to above 3 bradycardia and hypotension secondary to above, currently on glucagon infusion 4 acute respiratory failure, probably a combination of hypoxic and hypercapnic, related to above-mentioned drug overdose and this recovered and the patient was extubated today to nasal cannula 4 acute lactic acidosis 5 history of mitral valve repair 6 CHF with diastolic dysfunction and a preserved LV function 7 hypertension 8 HIV and patient is currently on antiretrovirals treatment 9 BPH 10 acid reflux 11 recent hospitalization for acute kidney injury, recovered 12 fibromyalgia 13 anxiety/depression Plan The patient was extubated. The patient will have a 24-hour sitter at the bedside. Psychiatric evaluation regarding depression and suicide ideations. Hold trazodone. Hold Valium. Hold beta blockers. Wean off the glucagon drip. Continue IV fluids at the rate of 150 mL an hour of normal saline. Monitor blood pressure. Monitor urine output. Monitor mentation. DVT and GI prophylaxis. We'll continue to follow.
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
[2018-02-23] MEDS: ALLOPURINOL 100 MG TAB PO SCH ×2 (14:35→21:45)
[2018-02-23] MEDS: IBUPROFEN 600 MG TAB PO PRN (14:35)
[2018-02-23 14:51] LABS: Glucose,Whole Blood 84 mg/dL (75-99)
[2018-02-23 15:36] LABS: ALT 39 U/L (21-72); AST 31 U/L (17-59); Albumin 3.5 g/dL (3.5-5.0); Alkaline Phosphatase 69 U/L (38-126); Anion Gap 10 mmol/L; Blood Urea Nitrogen 18 mg/dL (9-20); Calcium 7.9 mg/dL (8.4-10.2); Carbon Dioxide 21 mmol/L (22-30); Chloride 108 mmol/L (98-107); Glucose 100 mg/dL (74-99); Sodium 139 mmol/L (137-145); Total Bilirubin 0.6 mg/dL (0.2-1.3); Total Protein 6.6 g/dL (6.3-8.2)
[2018-02-23] MEDS ORDERED: Phosphorus Replacement Protoco 1 EACH MISC MISCELLANE PRN (16:40)
[2018-02-23 16:53] LABS: Glucose,Whole Blood 101 mg/dL (75-99)
[2018-02-23] MEDS: SODIUM PHOSPHATE 10 MMOL in SODIUM CHLORIDE 0.9% 250 ML IVPB SCH ×2 (17:19→20:04)
[2018-02-23] MEDS ORDERED: Elviteg/Cobi/Emtric/Tenofo Dis [Stribild Tablet] 1 TAB PO SCH (21:00)
[2018-02-23] MEDS ORDERED: DOXAZOSIN 1 MG TAB PO SCH (21:00)
[2018-02-23] MEDS ORDERED: LORATADINE 10 MG TAB PO SCH (21:00)
[2018-02-23] MEDS ORDERED: NON-FORMULARY DRUG (Esomeprazole Magnesium [Nexium] 40 MG) PO SCH (21:00)
[2018-02-23] MEDS ORDERED: LATANOPROST 0.005% OPHTH DROPS 2.5 ML BTL BOTH EYES SCH (21:00)
[2018-02-23 21:02] LABS: Glucose,Whole Blood 104 mg/dL (75-99)
[2018-02-24] MEDS: IBUPROFEN 600 MG TAB PO PRN ×2 (01:03→11:59)
[2018-02-24] MEDS: HEPARIN SODIUM,PORCINE 5,000 UNIT/ML 1 ML VIAL SQ SCH ×2 (01:05→09:01)
[2018-02-24] MEDS: SODIUM CHLORIDE 0.9% 1,000 ML IV SCH ×2 (01:10→06:47)
[2018-02-24 05:35] LABS: Anion Gap 6 mmol/L; Blood Urea Nitrogen 19 mg/dL (9-20); Calcium 7.7 mg/dL (8.4-10.2); Carbon Dioxide 21 mmol/L (22-30); Chloride 114 mmol/L (98-107); Glucose 88 mg/dL (74-99); Magnesium 1.7 mg/dL (1.6-2.3); Phosphorus 2.5 mg/dL (2.5-4.5); Potassium 3.7 mmol/L (3.5-5.1); Sodium 141 mmol/L (137-145)
[2018-02-24 05:39] LABS: Basophils % (A) 1 %; Eosinophils # (A) 0.1 k/uL (0-0.7); Eosinophils % (A) 2 %; HCT 36.8 % (39.0-53.0); HGB 12.8 gm/dL (13.0-17.5); Lymphocytes # (A) 2.3 k/uL (1.0-4.8); Lymphocytes % (A) 39 %; MCH 31.9 pg (25.0-35.0); MCHC 34.7 g/dL (31.0-37.0); MCV 91.8 fL (80.0-100.0); Mean Platelet Volume 9.1; Monocytes # (A) 0.5 k/uL (0-1.0); Monocytes % (A) 9 %; Neutrophils # (A) 2.8 k/uL (1.3-7.7); Neutrophils % (A) 47 %; Platelet Count 139 k/uL (150-450); RBC 4.01 m/uL (4.30-5.90); RDW 14.5 % (11.5-15.5); WBC 5.9 k/uL (3.8-10.6)
[2018-02-24] MEDS ORDERED: Potassium Replacement Protocol 1 EACH MISC MISCELLANE PRN (06:23)
[2018-02-24] MEDS ORDERED: Magnesium Replacement Protocol 1 EACH MISC MISCELLANE PRN (06:23)
[2018-02-24] MEDS: MAGNESIUM SULFATE-D5W PMX 1 GM in DEXTROSE/WATER 1 100ML.BAG IVPB SCH ×2 (06:39→09:07)
[2018-02-24] MEDS ORDERED: POTASSIUM CHLORIDE ER 20 MEQ TAB.ER PO SCH (07:00)
[2018-02-24] MEDS: FORMOTEROL FUMARATE 20 MCG/2 ML NEBU INHALATION SCH (07:33)
[2018-02-24 09:01] VITALS: TEMP 97.9
[2018-02-24] MEDS: PANTOPRAZOLE 40 MG/10 ML VIAL IV SCH (09:01)
[2018-02-24] MEDS: ALLOPURINOL 100 MG TAB PO SCH (09:02)
--- NOTE | 2018-02-24 11:58 | P.PN ---
Subjective Progress Note Date: 02/24/18 On 02/24/2018, the patient is fully awake alert conscious and he denies having any specific complaints. Hemodynamically stable. No cardiac arrhythmias. No chest pain. No shortness of breath and altered mentation. Psychiatric evaluation was done and the patient was not found to have any suicidal thoughts. Precautions were given regarding the use of benzodiazepine and alcohol. The sitter was discontinued. The patient is back on his outpatient medication. He has no specific complaints for now. He is tolerating his diet. Objective - Vital Signs Vital signs: Vital Signs Temp 97.9 F 02/24/18 08:00 Pulse 67 02/24/18 10:00 Resp 21 02/24/18 10:00 BP 127/80 02/24/18 10:00 Pulse Ox 94 L 02/24/18 10:00 Intake & Output 02/23/18 02/24/18 02/24/18 18:59 06:59 18:59 Intake Total 3900.833 2300 250 Output Total 1030 847 40 Balance 2870.833 1453 210 Weight 110 kg 110 kg Intake: IV 3600 2300 150 0.9 NACL 1350 1950 150 0.9 NACL bolus 1500 Magnesium Sulfate-D5w Pmx 100 1 gm In Dextrose/Water 1 100ml.bag @ 100 mls/hr IVPB Q1H ALEX Rx#: [id number] glucagon 500 sodium phosphate 250 250 Intake, IV Titration 300.833 100 Amount Glucagon 10 mg In 300.833 Dextrose 5% in Water 100 ml @ 50 mls/hr IV .Q2H ALEX Rx#:[id number] Magnesium Sulfate-D5w Pmx 100 1 gm In Dextrose/Water 1 100ml.bag @ 100 mls/hr IVPB Q1H ALEX Rx#: [id number] Output: Urine 1030 847 40 Other: Voiding Method Indwelling Catheter Indwelling Catheter Indwelling Catheter # Bowel Movements 1 - Exam The patient appeared well nourished and normally developed. Vital signs as documented. Head exam is unremarkable. No scleral icterus or corneal arcus noted. Neck is without jugular venous distension, thyromegaly, or carotid bruits. Carotid upstrokes are brisk bilaterally. Lungs are clear to auscultation and percussion. Cardiac exam reveals the PMI to be normally sized and situated. Rhythm is regular. First and second heart sounds normal. No murmurs, rubs or gallops. Abdominal exam reveals normal bowel sounds, no masses , no organomegaly and no aortic enlargement. Extremities are nonedematous and both femoral and pedal pulses are normal. Neurologically awake and alert and the patient has no focal neurological deficit. - Labs CBC & Chem 7: 02/24/18 04:46 02/24/18 04:46 Labs: Abnormal Lab Results - Last 24 Hours (Table) 02/23/18 02/23/18 02/23/18 Range/Units 12:47 15:12 16:51 RBC (4.30-5.90) m/uL Hgb (13.0-17.5) gm/dL Hct (39.0-53.0) % Plt Count (150-450) k/uL Chloride 108 H (98-107) mmol/L Carbon Dioxide 21 L (22-30) mmol/L Glucose 100 H (74-99) mg/dL POC Glucose (mg/dL) 136 H 101 H (75-99) mg/dL Calcium 7.9 L (8.4-10.2) mg/dL 02/23/18 02/24/18 02/24/18 Range/Units 20:59 04:46 04:46 RBC 4.01 L (4.30-5.90) m/uL Hgb 12.8 L (13.0-17.5) gm/dL Hct 36.8 L (39.0-53.0) % Plt Count 139 L (150-450) k/uL Chloride 114 H (98-107) mmol/L Carbon Dioxide 21 L (22-30) mmol/L Glucose (74-99) mg/dL POC Glucose (mg/dL) 104 H (75-99) mg/dL Calcium 7.7 L (8.4-10.2) mg/dL Assessment and Plan Plan: Assessment 1 intentional drug overdose with a combination of Lopressor, trazodone, Valium and alcohol intoxication, the patient was intubated and placed on a mechanical ventilator. The patient has been extubated for more than 24 hours. The patient is hemodynamically stable. Affect of Lopressor on his hemodynamics and heart rate and blood pressure has recovered and the patient is currently off glucagon. His been off glucagon for more than 24 hours. He has a good blood pressure and is hemodynamically stable. No altered mentation and affect of the Valium and the trazodone and and acute alcohol intoxication has essentially recovered. 2 altered mentation secondary to above, recovered 3 bradycardia and hypotension secondary to above, recovered and the patient is currently off glucagon infusion 4 acute respiratory failure, probably a combination of hypoxic and hypercapnic, recovered currently on room air 4 acute lactic acidosis, recovered 5 history of mitral valve repair 6 CHF with diastolic dysfunction and a preserved LV function 7 hypertension 8 HIV and patient is currently on antiretrovirals treatment 9 BPH 10 acid reflux 11 recent hospitalization for acute kidney injury, recovered 12 fibromyalgia 13 anxiety/depression Plan Discharge the patient out of the intensive care unit. Possible discharge home today if cleared by medicine.
[2018-02-24 12:00] VITALS: BP 161/87; PULSE 61; RESP 20
--- NOTE | 2018-02-24 18:01 | P.DS ---
Providers Date of admission: 02/23/18 04:12 Expected date of discharge: 02/24/18 Attending physician: Li Mike DO Consults: 02/23/18 04:12 Consult Physician Stat Consulting Provider: Demetri Mendiola Consult Reason/Comments: polysubstance overdose Do you want consulting provider notified?: Already Contacted 02/23/18 05:34 Consult Physician Routine Consulting Provider: Girma Pino Consult Reason/Comments: HIV management Do you want consulting provider notified?: Yes, Notify in am 02/23/18 05:44 Consult Physician Routine Consulting Provider: Radha Wilson Consult Reason/Comments: overdose Do you want consulting provider notified?: Yes Primary care physician: [facility] Course: 57-year-old male with a past medical history of hypertension, HIV, GERD, BPH, chronic pain, and congestive heart failure who presented with his significant other after an intentional overdose. He was recently hospitalized here from 01/14/2018 through 01/16/2018 for acute renal failure. On discharge his creatinine was 1.4. Patient was at home, took an overdose of 15-20 tablets of his 10 mg value, 5 trazodone, 8-10 of his metoprolol succinate. He then presented to the emergency department via private vehicle. He also denies any recent cough, cold, fever, flu, nausea, or vomiting. He has been struggling with chronic diarrhea for the last 6 months. He has not seen a GI doctor or had a colonoscopy done. He denies any chest pain or shortness of breath. He follows with Dr. Pino regularly and last saw him earlier this month. On arrival to the ER his blood pressure was 76/50. He did become unresponsive when they tried to sit him forward. In the ER he received 1 dose of glucagon IV push secondary to his low blood pressure. He also received a dose of activated charcoal which succeeded in getting out few tabs out of his stomach. He remained somnolent in the ER and the decision was made to electively intubate him. Poison control was contacted and agreed with intubation and glucagon use. They also provided a beta trish overdose protocol. He was placed on ketamine for sedation to avoid issues with hypotension. Patient was subsequently admitted to the ICU. He was maintained and glucagon drip as well as IV fluids. His blood pressure came on with treatment. After 24 hours the drip was turned off and his blood pressure stayed up. When I evaluated him in the morning he was already extubated. He indicates that he was depressed minutes by he overdosed on medications. He does have a history of depression. He does not see a psychiatrist on a regular basis. He has never been hospitalized for psychiatric reasons before. He does admit to a history of overdose in the past. He denies suicide at this point in time. He denied currently being depressed and said that he overdosed with the medicines because he [place]. He told me that he is otherwise satisfied with life and he has so much before. He was evaluated by psychiatry who did not think that he needed inpatient psychiatric admission. Patient also to follow-up with outpatient psychiatry if he felt down or had much anxiety. He was told to come to the ER if he felt suicidal. Currently patient feels back to normal baseline, he stated that he will be happy to be discharged home. He was instructed to follow-up with his primary care physician. He was cleared by the folder seamer automatic for discharge. He will be discharged home in a stable condition. Plan - Discharge Summary Discharge Rx Participant: Yes New Discharge Prescriptions: Continue traZODone HCL [Desyrel] 200 mg PO HS Ondansetron HCl [Zofran] 8 mg PO DAILY PRN PRN Reason: Nausea Elviteg/Chasidy/Emtric/Tenofo Dis [Stribild Tablet] 1 tab PO HS Bimatoprost [Lumigan .01% Ophth Soln] 1 drop BOTH EYES HS Doxazosin [Cardura] 1 mg PO HS Diazepam 10 mg PO HS Cetirizine HCl [Zyrtec] 10 mg PO HS Betamethasone Valerate [Betamethasone Valerate 0.1%] 1 applic TOPICAL DAILY PRN PRN Reason: Rash valACYclovir HCL [Valtrex] 500 mg PO Q8HR PRN PRN Reason: Cold Sores Metoprolol Succinate (ER) [Toprol XL] 100 mg PO HS Allopurinol [Zyloprim] 100 mg PO BID Testosterone 1 applic TOPICAL DAILY Salmeterol Xinafoate [Serevent Diskus] 1 puff INHALATION RT-BID Esomeprazole Magnesium [NexIUM] 40 mg PO HS diphenhydrAMINE HCL [Benadryl] 25 mg PO HS hydrALAZINE HCL [Apresoline] 25 mg PO TID #90 tab Loperamide HCl [Imodium A-D] 2 - 4 mg PO Q4H PRN PRN Reason: Loose Stool Discharge Medication List Betamethasone Valerate [Betamethasone Valerate 0.1%] 1 applic TOPICAL DAILY PRN 09/06/17 [History] Bimatoprost [Lumigan .01% Ophth Soln] 1 drop BOTH EYES HS 09/06/17 [History] Cetirizine HCl [Zyrtec] 10 mg PO HS 09/06/17 [History] Diazepam 10 mg PO HS 09/06/17 [History] Doxazosin [Cardura] 1 mg PO HS 09/06/17 [History] Elviteg/Chasidy/Emtric/Tenofo Dis [Stribild Tablet] 1 tab PO HS 09/06/17 [History] Ondansetron HCl [Zofran] 8 mg PO DAILY PRN 09/06/17 [History] traZODone HCL [Desyrel] 200 mg PO HS 09/06/17 [History] Allopurinol [Zyloprim] 100 mg PO BID 11/01/17 [History] Metoprolol Succinate (ER) [Toprol XL] 100 mg PO HS 11/01/17 [History] Salmeterol Xinafoate [Serevent Diskus] 1 puff INHALATION RT-BID 11/01/17 [ History] Testosterone 1 applic TOPICAL DAILY 11/01/17 [History] valACYclovir HCL [Valtrex] 500 mg PO Q8HR PRN 11/01/17 [History] Esomeprazole Magnesium [NexIUM] 40 mg PO HS 01/14/18 [History] diphenhydrAMINE HCL [Benadryl] 25 mg PO HS 01/14/18 [History] hydrALAZINE HCL [Apresoline] 25 mg PO TID #90 tab 01/16/18 [Rx] Loperamide HCl [Imodium A-D] 2 - 4 mg PO Q4H PRN 02/23/18 [History] Follow up Appointment(s)/Referral(s): Girma Pino MD [Primary Care Provider] - 1-2 days Patient Instructions/Handouts: Opioid Overdose (GEN), Benzodiazepine Overdose ( GEN) Discharge Disposition: HOME SELF-CARE
== END 2018-02-24 14:38 | disposition home or self-care (01) | DRG 917 ==
LOC: EC 02:02 → 6ICU 04:12
PROVIDERS: ADMIT Internal Medicine; ATTEND Internal Medicine
PROC: 5A1935Z Respiratory Ventilation, Less than 24 Consecutive Hours (ICD-10-PCS; principal; 2018-02-23)
PROC: 0BH18EZ Insertion of Endotracheal Airway into Trachea, Via Natural or Artificial Opening Endoscopic (ICD-10-PCS; 2018-02-23)
DX: T42.4X2A Poisoning by benzodiazepines, intentional self-harm, initial encounter (principal); J96.02 Acute respiratory failure with hypercapnia; J96.01 Acute respiratory failure with hypoxia; I50.32 Chronic diastolic (congestive) heart failure; N17.9 Acute kidney failure, unspecified; I42.9 Cardiomyopathy, unspecified; E87.2 Acidosis; I11.0 Hypertensive heart disease with heart failure; T43.212A Poisoning by selective serotonin and norepinephrine reuptake inhibitors, intentional self-harm, initial encounter; T44.7X2A Poisoning by beta-adrenoreceptor antagonists, intentional self-harm, initial encounter; F10.129 Alcohol abuse with intoxication, unspecified; Z21 Asymptomatic human immunodeficiency virus [HIV] infection status; F17.200 Nicotine dependence, unspecified, uncomplicated; F43.21 Adjustment disorder with depressed mood; I95.1 Orthostatic hypotension; K52.9 Noninfective gastroenteritis and colitis, unspecified; K21.9 Gastro-esophageal reflux disease without esophagitis; N40.0 Benign prostatic hyperplasia without lower urinary tract symptoms; J45.909 Unspecified asthma, uncomplicated; M79.7 Fibromyalgia; M10.9 Gout, unspecified; H40.9 Unspecified glaucoma; G89.4 Chronic pain syndrome; R00.1 Bradycardia, unspecified; M54.5 Low back pain; M25.551 Pain in right hip; M25.552 Pain in left hip; M54.2 Cervicalgia; M48.061 Spinal stenosis, lumbar region without neurogenic claudication; M47.9 Spondylosis, unspecified; Y90.6 Blood alcohol level of 120-199 mg/100 ml; Z79.899 Other long term (current) drug therapy; Z88.5 Allergy status to narcotic agent; Z88.2 Allergy status to sulfonamides; Z88.8 Allergy status to other drugs, medicaments and biological substances; Z95.2 Presence of prosthetic heart valve; Z96.9 Presence of functional implant, unspecified; Z62.810 Personal history of physical and sexual abuse in childhood; Z81.8 Family history of other mental and behavioral disorders; Z81.1 Family history of alcohol abuse and dependence
CPT/HCPCS: 31500; 36415; 36600; 51702; 71045; 80048; 80053; 80306; 80320; 81003; 82805; 83520; 83605; 83735; 84100; 85025; 85610; 93005; 94002; 94640; 96361; 96365; 96366; 96375; 99291

== ENCOUNTER 2018-05-18 11:15 | Inpatient (IN) | payer MEDICARE, OTHER ==
[2018-05-18] MEDS ORDERED: FUROSEMIDE 10 MG/ML 4 ML VIAL IV STA (11:44)
[2018-05-18] MEDS ORDERED: IPRATROPIUM-ALBUTEROL 3 ML NEB INHALATION STA (11:44)
[2018-05-18] MEDS ORDERED: methylPREDNISolone SOD SUCCI 125 MG/2 ML VIAL IV STA (11:44)
--- NOTE | 2018-05-18 12:33 | XR ---
EXAMINATION TYPE: XR chest 2V DATE OF EXAM: 05/18/2018 HISTORY: difficulty breathing. REFERENCE: Previous study dated 02/23/2018. FINDINGS: There has been a previous midline sternotomy. The heart is mildly enlarged. There are chronic interstitial markings which likely reflect interstiti al fibrosis. Lung volumes are prominent. Pleural spaces are clear. IMPRESSION: 1. COPD. 2. CARDIOMEGALY. 3. I SUSPECT SOME UNDERLYING PULMONARY FIBROSIS.
[2018-05-18 12:34] LABS: Basophils % (A) 0 %; Eosinophils # (A) 0.2 k/uL (0-0.7); Eosinophils % (A) 3 %; HCT 41.6 % (39.0-53.0); HGB 14.4 gm/dL (13.0-17.5); Lymphocytes # (A) 1.9 k/uL (1.0-4.8); Lymphocytes % (A) 28 %; MCHC 34.6 g/dL (31.0-37.0); MCV 89.6 fL (80.0-100.0); Mean Platelet Volume 8.6; Monocytes # (A) 0.4 k/uL (0-1.0); Monocytes % (A) 6 %; Neutrophils # (A) 4.2 k/uL (1.3-7.7); Neutrophils % (A) 62 %; Platelet Count 122 k/uL (150-450); RBC 4.64 m/uL (4.30-5.90); RDW 13.7 % (11.5-15.5); WBC 6.8 k/uL (3.8-10.6)
[2018-05-18 12:44] LABS: ALT 39 U/L (21-72); AST 32 U/L (17-59); Albumin 3.8 g/dL (3.5-5.0); Alkaline Phosphatase 71 U/L (38-126); Anion Gap 9 mmol/L; Blood Urea Nitrogen 18 mg/dL (9-20); Calcium 8.9 mg/dL (8.4-10.2); Carbon Dioxide 23 mmol/L (22-30); Chloride 111 mmol/L (98-107); Glucose 122 mg/dL (74-99); Magnesium 1.8 mg/dL (1.6-2.3); Potassium 4.3 mmol/L (3.5-5.1); Sodium 143 mmol/L (137-145); Total Bilirubin 0.6 mg/dL (0.2-1.3); Total Protein 6.9 g/dL (6.3-8.2)
--- NOTE | 2018-05-18 12:48 | ED ---
SOB HPI - General Chief Complaint: Shortness of Breath Stated Complaint: MARANDA Time Seen by Provider: 05/18/18 11:30 Source: patient Mode of arrival: ambulatory Limitations: no limitations - History of Present Illness Initial Comments: This is a 57-year-old male with a history of asthma and heart disease with coronary artery bypass additionally is a smoker who states she's had some shortness of breath going on for over a month but is got really bad over the past 3 days with exertional dyspnea orthopnea he states he can't breathe when he tries to sleep and eyes is a kidney sleep he had chest pain it was nonspecific and centrally located. Nonradiating he states. He denied chest pain at the time of my questioning. He has a fevers chills nausea vomiting sweats. He did state that he did in the past have a creatinine of 6.9. He has have a history of CHF additionally. No other modifying factors at this time no overt cough or phlegm production he does state he has some congestion to his nasal tract and sinus area. MD Complaint: shortness of breath, chest pain - Related Data Home Medications Medication Instructions Recorded Confirmed Betamethasone Valerate 1 applic TOPICAL DAILY PRN 09/06/17 05/18/18 [Betamethasone Valerate 0.1%] Cetirizine HCl [Zyrtec] 10 mg PO HS 09/06/17 05/18/18 Diazepam 10 mg PO HS 09/06/17 05/18/18 Doxazosin [Cardura] 1 mg PO HS 09/06/17 05/18/18 Elviteg/Chasidy/Emtric/Tenofo Dis 1 tab PO HS 09/06/17 05/18/18 [Stribild Tablet] traZODone HCL [Desyrel] 200 mg PO HS 09/06/17 05/18/18 Allopurinol [Zyloprim] 100 mg PO BID 11/01/17 05/18/18 Metoprolol Succinate (ER) [Toprol 100 mg PO HS 11/01/17 05/18/18 XL] Salmeterol Xinafoate [Serevent 1 puff INHALATION RT-BID 11/01/17 05/18/18 Diskus] valACYclovir HCL [Valtrex] 500 mg PO Q8HR PRN 11/01/17 05/18/18 Furosemide [Lasix] 40 mg PO DAILY 05/18/18 05/18/18 Isosorbide Mononitrate [Monoket] 10 mg PO TID 05/18/18 05/18/18 Ondansetron [Zofran ODT] 8 mg PO DAILY PRN 05/18/18 05/18/18 Previous Rx's Medication Instructions Recorded hydrALAZINE HCL [Apresoline] 25 mg PO TID #90 tab 01/16/18 Allergies Allergy/AdvReac Type Severity Reaction Status Date / Time abacavir [From Ziagen] Allergy Anaphylaxis Verified 05/18/18 12:04 efavirenz [From Sustiva] Allergy Anaphylaxis Verified 05/18/18 12:04 hydrocodone Allergy Rapid Verified 05/18/18 12:04 [From Hysingla ER] Heart Rate sulfamethoxazole Allergy HIGH Verified 05/18/18 12:04 [From Bactrim] CREATININE LEVEL trimethoprim [From Bactrim] Allergy HIGH Verified 05/18/18 12:04 CREATININE morphine AdvReac Itching Verified 05/18/18 12:04 Review of Systems ROS Statement: Those systems with pertinent positive or pertinent negative responses have been documented in the HPI. ROS Other: All systems not noted in ROS Statement are negative. Past Medical History Past Medical History: Asthma, Heart Failure, Fibromyalgia, GERD/Reflux, Hypertension, Prostate Disorder Additional Past Medical History / Comment(s): Cardiomyopathy, with a normal left ventricle ejection fraction based on the most recent echocardiogram that is available to us. The patient undergone mitral valve surgery, possibly repair versus placement, HIV positive, past HTN and recently low blood pressures , BPH, R ankle gout, chronic nausea, bilateral glaucoma, DDD, chronic pain syndrome, chronic low back and bilateral hip pain and occasional cervical pain, DDD, lumbar stenosis/spondylosis, abdominal hernia History of Any Multi-Drug Resistant Organisms: None Reported Past Surgical History: Heart Catheterization, Hernia Repair, Orthopedic Surgery Additional Past Surgical History / Comment(s): Mitral valve repair at [facility], R inguinal hernia x2, L inguinal hernia, epidural injections to back, hip injections, RFAs, spinal cord stimulator trial. Past Anesthesia/Blood Transfusion Reactions: No Reported Reaction Past Psychological History: Anxiety, Depression Smoking Status: Light tobacco smoker - Past Family History Father Additional Family Medical History / Comment(s): Father was injured at work and of complication during his hospitalization. Mother Additional Family Medical History / Comment(s): Mother is from alcoholism. General Exam - General Exam Comments Initial Comments: This a well-developed well-nourished awake alert oriented times 3 male Limitations: no limitations General appearance: alert, anxious Head exam: Present: atraumatic, normocephalic, normal inspection Eye exam: Present: normal appearance, PERRL, EOMI. Absent: scleral icterus, conjunctival injection, periorbital swelling ENT exam: Present: other (Boggy nasal mucosa with some nonspecific discomfort to percussion over the frontal and maxillary sinuses. Oropharynx is clear) Neck exam: Present: normal inspection. Absent: tenderness, meningismus, lymphadenopathy Respiratory exam: Present: wheezes, accessory muscle use, decreased breath sounds Cardiovascular Exam: Present: regular rate, normal rhythm, normal heart sounds. Absent: systolic murmur, diastolic murmur, rubs, gallop, clicks GI/Abdominal exam: Present: soft, normal bowel sounds. Absent: distended, tenderness, guarding, rebound, rigid Extremities exam: Present: normal inspection, full ROM, normal capillary refill. Absent: tenderness, pedal edema, joint swelling, calf tenderness Back exam: Present: normal inspection Neurological exam: Present: alert, oriented X3, CN II-XII intact Psychiatric exam: Present: normal affect, normal mood Skin exam: Present: warm, dry, intact, normal color. Absent: rash Course Vital Signs 05/18/18 05/18/18 05/18/18 11:24 11:45 11:53 Temperature 97.5 F L Pulse Rate 64 64 Respiratory 18 24 24 Rate Blood Pressure 161/88 173/111 O2 Sat by Pulse 97 98 Oximetry 05/18/18 05/18/18 12:06 12:15 Temperature Pulse Rate 68 68 Respiratory Rate Blood Pressure O2 Sat by Pulse Oximetry - Reevaluation(s) Reevaluation #1: 05/18/18 13:55 Reexamination patient reveals he get minimal improvement from the DuoNeb treatment was given. Medical Decision Making - Medical Decision Making I did discuss findings with the patient he still dyspneic d-dimer was negative x -rays are nonspecific patient will be admitted for further inpatient evaluation I did discuss case with the on-call physician Dr. Burch will be consulted as well pulmonary medicine at this time the patient does have evidence of asthma/ COPD exacerbation - Lab Data Result diagrams: 05/18/18 12:05 05/18/18 12:05 Lab Results 05/18/18 05/18/18 05/18/18 Range/Units 12:05 12:05 12:05 WBC 6.8 (3.8-10.6) k/uL RBC 4.64 (4.30-5.90) m/uL Hgb 14.4 (13.0-17.5) gm/dL Hct 41.6 (39.0-53.0) % MCV 89.6 (80.0-100.0) fL MCH 31.0 (25.0-35.0) pg MCHC 34.6 (31.0-37.0) g/dL RDW 13.7 (11.5-15.5) % Plt Count 122 L (150-450) k/uL Neutrophils % 62 % Lymphocytes % 28 % Monocytes % 6 % Eosinophils % 3 % Basophils % 0 % Neutrophils # 4.2 (1.3-7.7) k/uL Lymphocytes # 1.9 (1.0-4.8) k/uL Monocytes # 0.4 (0-1.0) k/uL Eosinophils # 0.2 (0-0.7) k/uL Basophils # 0.0 (0-0.2) k/uL PT (9.0-12.0) sec INR (<1.2) APTT (22.0-30.0) sec D-Dimer (<0.60) mg/L FEU Sodium 143 (137-145) mmol/L Potassium 4.3 (3.5-5.1) mmol/L Chloride 111 H (98-107) mmol/L Carbon Dioxide 23 (22-30) mmol/L Anion Gap 9 mmol/L BUN 18 (9-20) mg/dL Creatinine 0.84 (0.66-1.25) mg/dL Est GFR (CKD-EPI)AfAm >90 (>60 ml/min/1.73 sqM) Est GFR (CKD-EPI)NonAf >90 (>60 ml/min/1.73 sqM) Glucose 122 H (74-99) mg/dL Calcium 8.9 (8.4-10.2) mg/dL Magnesium 1.8 (1.6-2.3) mg/dL Total Bilirubin 0.6 (0.2-1.3) mg/dL AST 32 (17-59) U/L ALT 39 (21-72) U/L Alkaline Phosphatase 71 (38-126) U/L Total Creatine Kinase 88 (55-170) U/L CK-MB (CK-2) 0.7 (0.0-2.4) ng/mL CK-MB (CK-2) Rel Index 0.8 Troponin I 0.016 (0.000-0.034) ng/mL NT-Pro-B Natriuret Pep pg/mL Total Protein 6.9 (6.3-8.2) g/dL Albumin 3.8 (3.5-5.0) g/dL 05/18/18 05/18/18 05/18/18 Range/Units 12:05 12:05 13:20 WBC (3.8-10.6) k/uL RBC (4.30-5.90) m/uL Hgb (13.0-17.5) gm/dL Hct (39.0-53.0) % MCV (80.0-100.0) fL MCH (25.0-35.0) pg MCHC (31.0-37.0) g/dL RDW (11.5-15.5) % Plt Count (150-450) k/uL Neutrophils % % Lymphocytes % % Monocytes % % Eosinophils % % Basophils % % Neutrophils # (1.3-7.7) k/uL Lymphocytes # (1.0-4.8) k/uL Monocytes # (0-1.0) k/uL Eosinophils # (0-0.7) k/uL Basophils # (0-0.2) k/uL PT 9.6 (9.0-12.0) sec INR 1.0 (<1.2) APTT 23.4 (22.0-30.0) sec D-Dimer 0.53 (<0.60) mg/L FEU Sodium (137-145) mmol/L Potassium (3.5-5.1) mmol/L Chloride (98-107) mmol/L Carbon Dioxide (22-30) mmol/L Anion Gap mmol/L BUN (9-20) mg/dL Creatinine (0.66-1.25) mg/dL Est GFR (CKD-EPI)AfAm (>60 ml/min/1.73 sqM) Est GFR (CKD-EPI)NonAf (>60 ml/min/1.73 sqM) Glucose (74-99) mg/dL Calcium (8.4-10.2) mg/dL Magnesium (1.6-2.3) mg/dL Total Bilirubin (0.2-1.3) mg/dL AST (17-59) U/L ALT (21-72) U/L Alkaline Phosphatase (38-126) U/L Total Creatine Kinase (55-170) U/L CK-MB (CK-2) (0.0-2.4) ng/mL CK-MB (CK-2) Rel Index Troponin I (0.000-0.034) ng/mL NT-Pro-B Natriuret Pep 730 pg/mL Total Protein (6.3-8.2) g/dL Albumin (3.5-5.0) g/dL - EKG Data -: EKG Interpreted by Sd EKG shows normal: sinus rhythm (Neuro sinus rhythm at 74. Interval 162 QRS duration 84 QT since QTC 42/446 to QA changes) - Radiology Data Radiology results: report reviewed (Imaging studies were nonspecific evidence of COPD presents pulmonary fibrosis.), image reviewed Critical Care Time Critical Care Time: Yes Critical Care Time: 31 minutes of critical care time which includes initial presentation with history physical labs x-rays several reevaluation of the patient for response to therapy discuss with the patient regarding findings discussed with the admitting physician admission orders and documentation of the above Disposition Clinical Impression: Acute exacerbation of chronic obstructive airways disease, Adult respiratory distress syndrome Disposition: ADMITTED IP TO THIS HOSP Condition: Stable Referrals: Girma Pino MD [Primary Care Provider] - 1-2 days
[2018-05-18 13:04] LABS: Creatine Kinase MB 0.7 ng/mL (0.0-2.4); Troponin I 0.016 ng/mL (0.000-0.034)
[2018-05-18 13:11] LABS: Partial Thromboplastin Time 23.4 sec (22.0-30.0); Prothrombin Time 9.6 sec (9.0-12.0)
[2018-05-18] MEDS ORDERED: MAGNESIUM SULFATE-D5W PMX 1 GM in DEXTROSE/WATER 1 100ML.BAG IVPB ONE (13:54)
[2018-05-18] MEDS ORDERED: valACYclovir 500 MG TAB PO PRN (14:03)
[2018-05-18] MEDS ORDERED: BETAMETHASONE DIPROPIONATE 0.05% OINTMENT 45 GM TUBE TOPICAL PRN (14:03)
[2018-05-18] MEDS ORDERED: ONDANSETRON ODT 8 MG TAB.RAPDIS PO PRN (14:03)
[2018-05-18 15:05] LABS: Appearance,Urine Clear (Clear); Bilirubin,Urine Negative (Negative); Blood,Urine Negative (Negative); Color,Urine Colorless; Glucose,Urine (UA) Negative (Negative); Ketones,Urine Negative (Negative); Leukocyte Esterase,Urine Negative (Negative); Nitrite,Urine Negative (Negative); PH, Urine 5.5 (5.0-8.0); Protein,Urine Negative (Negative); Specific Gravity,Urine 1.007 (1.001-1.035); Urobilinogen,Urine <2.0 mg/dL (<2.0)
--- NOTE | 2018-05-18 15:21 | CT ---
EXAMINATION TYPE: CT angio chest DATE OF EXAM: 05/18/2018 COMPARISON: NONE HISTORY: shortness of breath. hx hearth cath, mitral valve repair CT DLP: 465.6 mGycm. Automated Exposure Control for Dose Reduction was Utilized. CONTRAST: CTA scan of the thorax is performed with IV Contrast, patient injected with 100 mL of Isovue 370, pul monary embolism protocol. MIP Images are created on CT scanner and reviewed. FINDINGS: LUNGS: Subpleural deposition of fat is seen on the left. Very minimal bibasilar subsegmental dependen t atelectasis is noted. Although there is pulmonary hyperinflation is seen on the prior chest radiogr aph no centrilobular or paraseptal emphysematous changes are seen. The lungs are grossly clear, there is no concerning parenchymal mass or nodule identified. There is no pleural effusion or pneumothor ax seen. The tracheobronchial tree is patent. MEDIASTINUM: There is satisfactory enhancement of the pulmonary artery and its branches, there is no CT evidence for pulmonary embolism. There are no greater than 1 cm hilar or mediastinal lymph nodes. No cardiomegaly or pericardial effusion is seen. Sternotomy wires are seen with mitral valve repla cement and few coronary calcifications. OTHER: Decreased attenuation of the hepatic parenchyma in comparison to that of the spleen relates to hepatic steatosis. Mild multilevel degenerative changes of the spine are present. IMPRESSION: No evidence of pulmonary embolism. No focal consolidation. Postsurgical changes of the ch est and hepatic steatosis incidentally noted.
--- NOTE | 2018-05-18 15:59 | P.CNPUL ---
History of Present Illness Consult date: 05/18/18 Reason for consult: dyspnea History of present illness: 57-year-old male patient is coming in to the MRSA problem because of increased shortness of breath going on over a month. His been getting progressively worse in terms of his breathing. He had some limited cough and sputum production. No hemoptysis. No pleurisy. Chest was diffusely sore. No trauma to the chest. No anginal type of chest pain. No signs of congestion heart failure. Chest x-ray showing some changes consistent with COPD. EKG showing a normal sinus rhythm without any acute ST segment abnormalities. BNP level was nonelevated. First set of cardiac enzyme is negative. This patient is known to me. I took care of him approximately 5 months ago when he came into the ICU following a drug overdose and during that time the patient had to be intubated and placed on a mechanical ventilator briefly to deal with complications of respiratory failure related to drug overdose. He is a ex-smoker and he on and off smokes few cigarettes. The patient has history of HIV and he is on antiretroviral treatment. He has previous history of mitral valve disease that was surgically repaired. Also has issues with hypertension and BPH. He has been hospitalized in December 2017 for an acute kidney injury from which she completely recovered. Subsequently in January 2018 he was admitted for overdosing on a combination of pills including Valium and trazodone and metoprolol. He drinks alcohol occasionally and he binge drinks. He has history of chronic pain in addition. He has been operated on at [facility] for cardiac disease/mitral valve disease Review of Systems All systems: negative (Increased shortness of breath.no headache, no visual changes, no shortness of breath, no chest pain, he has chronic back pain and chronic myalgias and arthralgias and chronic gout, no skin ulcerations or wounds or signs of trauma, he suffers from chronic anxiety and depression and he has some difficulties with mobility and gait. No seizure activity has been noted. No nausea. No vomiting. No aspiration. No dysuria free through emergency.) Past Medical History Past Medical History: Asthma, Heart Failure, COPD, Fibromyalgia, GERD/Reflux, Hypertension, Prostate Disorder Additional Past Medical History / Comment(s): Mitral valve disease and a previous mitral valve surgery, possibly repair versus placement, HIV positive, past HTN and recently low blood pressures, BPH, R ankle gout, chronic nausea, bilateral glaucoma, DDD, chronic pain syndrome, chronic low back and bilateral hip pain and occasional cervical pain, DDD, lumbar stenosis/spondylosis, abdominal hernia, previous history of drug overdose History of Any Multi-Drug Resistant Organisms: None Reported Past Surgical History: Heart Catheterization, Hernia Repair, Orthopedic Surgery Additional Past Surgical History / Comment(s): Mitral valve repair at [facility], R inguinal hernia x2, L inguinal hernia, epidural injections to back, hip injections, RFAs, spinal cord stimulator trial. Past Anesthesia/Blood Transfusion Reactions: No Reported Reaction Past Psychological History: Anxiety, Depression Smoking Status: Light tobacco smoker - Past Family History Father Additional Family Medical History / Comment(s): Father was injured at work and of complication during his hospitalization. Mother Additional Family Medical History / Comment(s): Mother is from alcoholism. Medications and Allergies Home Medications Medication Instructions Recorded Confirmed Type Betamethasone Valerate 1 applic TOPICAL DAILY PRN 09/06/17 05/18/18 History [Betamethasone Valerate 0.1%] Cetirizine HCl [Zyrtec] 10 mg PO HS 09/06/17 05/18/18 History Diazepam 10 mg PO HS 09/06/17 05/18/18 History Doxazosin [Cardura] 1 mg PO HS 09/06/17 05/18/18 History Elviteg/Chasidy/Emtric/Tenofo Dis 1 tab PO HS 09/06/17 05/18/18 History [Stribild Tablet] traZODone HCL [Desyrel] 200 mg PO HS 09/06/17 05/18/18 History Allopurinol [Zyloprim] 100 mg PO BID 11/01/17 05/18/18 History Metoprolol Succinate (ER) [Toprol 100 mg PO HS 11/01/17 05/18/18 History XL] Salmeterol Xinafoate [Serevent 1 puff INHALATION RT-BID 11/01/17 05/18/18 History Diskus] valACYclovir HCL [Valtrex] 500 mg PO Q8HR PRN 11/01/17 05/18/18 History hydrALAZINE HCL [Apresoline] 25 mg PO TID #90 tab 01/16/18 05/18/18 Rx Furosemide [Lasix] 40 mg PO DAILY 05/18/18 05/18/18 History Isosorbide Mononitrate [Monoket] 10 mg PO TID 05/18/18 05/18/18 History Ondansetron [Zofran ODT] 8 mg PO DAILY PRN 05/18/18 05/18/18 History Allergies Allergy/AdvReac Type Severity Reaction Status Date / Time abacavir [From Ziagen] Allergy Anaphylaxis Verified 05/18/18 12:04 efavirenz [From Sustiva] Allergy Anaphylaxis Verified 05/18/18 12:04 hydrocodone Allergy Rapid Verified 05/18/18 12:04 [From Hysingla ER] Heart Rate sulfamethoxazole Allergy HIGH Verified 05/18/18 12:04 [From Bactrim] CREATININE LEVEL trimethoprim [From Bactrim] Allergy HIGH Verified 05/18/18 12:04 CREATININE morphine AdvReac Itching Verified 05/18/18 12:04 Physical Exam Vitals: Vital Signs Temp Pulse Resp BP Pulse Ox 05/18/18 14:59 77 18 150/98 96 05/18/18 14:00 75 18 139/89 95 05/18/18 12:15 68 05/18/18 12:06 68 05/18/18 11:53 24 05/18/18 11:45 64 24 173/111 98 05/18/18 11:39 66 20 96 05/18/18 11:24 97.5 F L 64 18 161/88 97 Intake and Output 05/18/18 05/18/18 05/18/18 06:59 14:59 22:59 Other: Weight 108.862 kg Gen. appearance, comfortable mild degree of respiratory distress even at rest. Head exam was generally normal. There was no scleral icterus or corneal arcus. Mucous membranes were moist. Neck was supple and without jugular venous distension, thyromegaly, or carotid bruits. Carotids were easily palpable bilaterally. There was no adenopathy. Lungs sounds are diminished and there is diffuse expiratory wheezes throughout the lung hidalgo bilaterally and the strongest of the expiratory phase of breathing Cardiac exam revealed the PMI to be normally situated and sized. The rhythm was regular and no extrasystoles were noted during several minutes of auscultation. The first and second heart sounds were normal and physiologic splitting of the second heart sound was noted. There were no murmurs, rubs, clicks, or gallops. Abdominal exam revealed normal bowel sounds. The abdomen was soft, non-tender, and without masses, organomegaly, or appreciable enlargement of the abdominal aorta. Examination of the extremities revealed easily palpable radial, femoral and pedal pulses. There was no cyanosis, clubbing or edema. Examination of the skin revealed no evidence of significant rashes, suspicious appearing nevi or other concerning lesions. Neurologically the patient is awake and alert that is no focal neurological deficit. Psychiatric appropriate mood and affect Results - Laboratory Findings CBC and BMP: 05/18/18 12:05 05/18/18 12:05 PT/INR, D-dimer PT 9.6 sec (9.0-12.0) 05/18/18 12:05 INR 1.0 (<1.2) 05/18/18 12:05 D-Dimer 0.53 mg/L FEU (<0.60) 05/18/18 13:20 Abnormal lab findings: Abnormal Labs 05/18/18 05/18/18 12:05 12:05 Plt Count 122 L Chloride 111 H Glucose 122 H - Diagnostic Findings Chest x-ray: image reviewed Assessment and Plan Plan: Assessment 1 acute COPD/asthma exacerbation with secondary shortness of breath. Patient has also symptoms of tracheal bronchitis. Chest x-ray is free of any acute pulmonary infiltrates. Based on the reported history, the patient is HIV yet he has been taking his anti-retroviral agents and he has been nonimmunocompromised at this point in time 2 history of mitral valve repair, preserved LV function based on the most recent echocardiogram 3 CHF with diastolic dysfunction and a preserved LV function 4 hypertension 5 HIV and patient is currently on antiretrovirals treatment 6 BPH 7 acid reflux 8 recent hospitalization for acute kidney injury, recovered 9 fibromyalgia 10 anxiety/depression Plan Admit this patient to the hospital. Start DuoNeb nebulized treatments around the clock. Start IV Solu Medrol 6 milligrams every 6 hours. Put the patient on budesonide nebulized she was 0.5 mg twice a day. Empiric antibiotic coverage with Levaquin. Obtain a CT angios the chest.Resume outpatient medications. We'll continue to follow.
[2018-05-18] MEDS: IPRATROPIUM-ALBUTEROL 3 ML NEB INHALATION SCH ×3 (16:20→23:48)
[2018-05-18] MEDS: LEVOFLOXACIN 500MG-D5W PMX 500 MG in DEXTROSE/WATER 1 100ML.BAG IVPB SCH (16:45)
[2018-05-18] MEDS: ISOSORBIDE MONONITRATE 10 MG TAB PO SCH ×2 (18:11→22:58)
[2018-05-18] MEDS: hydrALAZINE HCL 25 MG TAB PO SCH ×3 (18:35→22:58)
[2018-05-18] MEDS: methylPREDNISolone SOD SUCCI 125 MG/2 ML VIAL IV SCH ×2 (18:35→22:58)
[2018-05-18] MEDS ORDERED: IBUPROFEN 400 MG TAB PO PRN (20:23)
[2018-05-18] MEDS ORDERED: [UNRECOGNIZED DRUG - OTHER] PO SCH (21:00)
[2018-05-18] MEDS: ALLOPURINOL 100 MG TAB PO SCH (21:20)
[2018-05-18] MEDS: DOXAZOSIN 1 MG TAB PO SCH (21:20)
[2018-05-18] MEDS: METOPROLOL SUCCINATE (ER) 100 MG TAB.ER.24H PO SCH (21:21)
[2018-05-18] MEDS: LORATADINE 10 MG TAB PO SCH (21:21)
[2018-05-18] MEDS: BUDESONIDE 0.5 MG/2 ML NEBU INHALATION SCH (21:32)
[2018-05-18 22:44] VITALS: BMI 37.5
[2018-05-18] MEDS: DIAZEPAM 5 MG TAB PO SCH (22:57)
[2018-05-18] MEDS: traZODone HCL 100 MG TAB PO SCH (22:57)
[2018-05-18 22:58] LABS: Glucose,Whole Blood 216 mg/dL (75-99)
[2018-05-18] MEDS: INSULIN ASPART 100 UNIT/ML 1 ML 10 ML VIAL SQ SCH (23:04)
[2018-05-19] MEDS: IPRATROPIUM-ALBUTEROL 3 ML NEB INHALATION SCH ×6 (02:17→23:49)
[2018-05-19 06:44] LABS: Glucose,Whole Blood 171 mg/dL (75-99)
[2018-05-19] MEDS: methylPREDNISolone SOD SUCCI 125 MG/2 ML VIAL IV SCH ×4 (07:07→23:05)
[2018-05-19] MEDS: INSULIN ASPART 100 UNIT/ML 1 ML 10 ML VIAL SQ SCH ×4 (07:07→20:30)
[2018-05-19] MEDS: BUDESONIDE 0.5 MG/2 ML NEBU INHALATION SCH ×2 (07:55→20:22)
--- NOTE | 2018-05-19 08:11 | HP ---
HISTORY AND PHYSICAL CHIEF COMPLAINT: 57-year-old white male with history of MRSA, had increasing shortness of breath over last 2 weeks, admitted with COPD exacerbation, exacerbated by dust in his house doing multiple house repairs including dust and laying tile. Five months ago he apparently was here following a drug overdose and was on a ventilator. He is an ex-smoker. History of HIV and anti-retroviral treatment. History of BPH. He binge drinks. History of cardiac valve disease, mitral valve repair. PAST MEDICAL HISTORY: Asthma, heart failure, COPD, fibromyalgia, GERD, hypertension, prostate disorder, history of lumbar stenosis, lumbar degenerative disc disease, glaucoma, chronic pain syndrome, hypertension, BPH, gout, previous drug overdose, anxiety, depression. SURGICAL HISTORY: Cardiac catheterization, hernia repair, orthopedic surgery. FAMILY HISTORY: Father . Mother alcoholism. HOME MEDICINES: Betamethasone, Zyrtec, diazepam, Cardura, trazodone, Zyloprim, Toprol-XL, Serevent, Valtrex, hydralazine, Lasix, Monocot, Zofran. ALLERGIES: , BACTRIM, MORPHINE. PHYSICAL EXAMINATION: Temp 97.5, pulse 60s to 70s, respiratory 18-24, blood pressure 150s to 170s over 90s to 100s. Weight is 108 kg. ENDOCRINE: BMI is over 40. CARDIOVASCULAR: S1, S2. LUNGS: Rales and rhonchi. HEMATOLOGY: Negative Homans. PSYCH: Fair mood and affect. NEUROLOGIC: Alert and oriented x3. OPHTHALMOLOGICAL: Pupils equal, round, reactive. ASSESSMENT: 1. Acute chronic obstructive pulmonary disease, asthma exacerbation. 2. History of mitral valve repair. 3. Congestive heart failure with diastolic dysfunction. 4. Hypertension. 5. HIV. 6. benign prostatic hypertrophy. 7. Gastroesophageal reflux disease. 8. Acute kidney injury. 9. Fibromyalgia. 10.Anxiety, depression. Order DuoNeb, Solu-Medrol, budesonide, Levaquin. CT and angiogram of the chest. Cardiology consult. MMODL / IJN: [id number] /
[2018-05-19] MEDS ORDERED: FUROSEMIDE 40 MG TAB PO SCH (09:00)
[2018-05-19] MEDS: ALLOPURINOL 100 MG TAB PO SCH ×2 (09:37→20:19)
[2018-05-19] MEDS: hydrALAZINE HCL 25 MG TAB PO SCH ×3 (09:37→20:20)
[2018-05-19] MEDS: ISOSORBIDE MONONITRATE 10 MG TAB PO SCH ×3 (09:37→21:29)
[2018-05-19] MEDS ORDERED: WITCH HAZEL 1 EACH MED..PAD TOPICAL PRN (09:55)
[2018-05-19] MEDS ORDERED: diphenhydrAMINE 25 MG CAP PO STA (10:09)
[2018-05-19] MEDS ORDERED: IBUPROFEN 600 MG TAB PO PRN (10:39)
[2018-05-19 12:01] LABS: Glucose,Whole Blood 195 mg/dL (75-99)
[2018-05-19] MEDS ORDERED: IBUPROFEN 600 MG TAB PO SCH (13:00)
[2018-05-19] MEDS: LOPERAMIDE 2 MG CAP PO PRN ×2 (13:15→15:52)
--- NOTE | 2018-05-19 14:08 | P.CONS ---
History of Present Illness - Reason for Consult Consult date: 05/19/18 - Chief Complaint shortness of breath - History of Present Illness 57-year-old male well-known to the office with follow-up with HIV infection presents the emergency center with rapid worsening of his shortness of breath. The patient has had a long history of HIV infection with a CD4 count over 200 but less than 500 with viral load that is occasionally undetectable but often low level thought to be due to his medication compliance issues. He at this time relates that the partner has been redoing some tile work in the house. The mixing of the mortar resulted in a large amount of dust which he believes acutely flared his underlying COPD. His shortness of breath worsened quickly in counseling presented to the emergency center and has been admitted. He has been seen by pulmonary venous been initiated to respiratory treatments steroid therapy and is feeling somewhat better in the hours since admission. He does not relate to any difficulties such as fevers chills or rigors or sweats. He's had no significant sputum production, no hemoptysis. He does have a history of mitral valve surgery, he is not having chest pains at this time only progressive shortness of breath. Patient relates that his home situation has stabilized and he is doing well after his last hospitalization with what appears to be an accidental overdose. In the summer he became acutely ill and at the presentation he had acute renal failure with his creatinine of 6.94. With hydration, ensuring that his blood pressure was adequate and avoidance of nephrotoxic agents he rapidly had recovery of his acute renal failure. He has had no difficulty with any ongoing renal disease since that time. Review of Systems Patient relates the shortness of breath is really starting to improve HEENT:Denies headache or acute visual change. Denies sinus or mouth discomforts. Denies neck stiffness or pain. Denies significant oral cavity pain. Denies difficulty on swallowing. Lungs: As per the HPI shortness of breath Cardiovascular: At admission had shortness of breath but denying chest pains chest pressures he had dyspnea on exertion. Dyspnea with any activity, no significant lower extremity edema did not have orthopnea Gastrointestinal:Denies nausea, vomiting, diarrhea, constipation, hematemesis, melena, hematochezia. No no significant change of bowel habit noticed. Musculoskeletal: He has chronic musculoskeletal pains that have not changed Skin: Denies new rash or lesions. No new ulcers or wounds are related.. Neuro: Denies headache or visual change. Denies any new onset weakness or difficulty with ambulation. Denies falls or seizures. Psychiatric: Chronic anxiety and depression now improved Endocrine: He has chronic fatigue weight is continued to increase over the last several years. Past Medical History Past Medical History: Asthma, Heart Failure, COPD, Fibromyalgia, GERD/Reflux, Hypertension, Prostate Disorder Additional Past Medical History / Comment(s): Mitral valve disease and a previous mitral valve surgery, possibly repair versus placement, HIV positive, past HTN and recently low blood pressures, BPH, R ankle gout, chronic nausea, bilateral glaucoma, DDD, chronic pain syndrome, chronic low back and bilateral hip pain and occasional cervical pain, DDD, lumbar stenosis/spondylosis, abdominal hernia, previous history of drug overdose. History of Any Multi-Drug Resistant Organisms: None Reported Past Surgical History: Heart Catheterization, Hernia Repair, Orthopedic Surgery Additional Past Surgical History / Comment(s): Mitral valve repair at [facility], R inguinal hernia x2, L inguinal hernia, epidural injections to back, hip injections, RFAs, spinal cord stimulator trial. Past Anesthesia/Blood Transfusion Reactions: No Reported Reaction Past Psychological History: Anxiety, Depression Additional Psychological History / Comment(s): He lives with his significant other, he is healthy. Pet dog in the home. No experience no international travel. Positive tobacco use. History of extensive alcohol use. Currently some home repairs are occurring, is related that the boiler was evaluated apparently the day of admission and was also malfunctioning in the home. History of narcotic dependence Smoking Status: Light tobacco smoker Past Alcohol Use History: Occasional Additional Past Alcohol Use History / Comment(s): Pt is a smoker occasionnaly Past Drug Use History: None Reported Additional Drug Use History / Comment(s): Pt smokes marijuana on occasion. He last used cocaine 25 yrs ago. previous history of opiod abuse and overdose - Past Family History Father Additional Family Medical History / Comment(s): Father was injured at work and of complication during his hospitalization. Mother Additional Family Medical History / Comment(s): Mother is from alcoholism. Medications and Allergies Home Medications and Allergies Comment(s): Current Medications Albuterol/Ipratropium (Duoneb 0.5 Mg-3 Mg/3 Ml Soln) 3 ml INHALATION RT-Q4H ALEX Last Admin: 05/19/18 11:29 Dose: 3 ml Allopurinol (Zyloprim) 100 mg PO BID [facility] Last Admin: 05/19/18 09:37 Dose: 100 mg Betamethasone Dipropionate (Diprolene) 1 applic TOPICAL DAILY PRN PRN Reason: Rash Budesonide (Pulmicort) 0.5 mg INHALATION RT-BID [facility] Last Admin: 05/19/18 07:55 Dose: 0.5 mg Diazepam (Valium) 10 mg PO [facility] Last Admin: 05/18/18 22:57 Dose: 10 mg Diphenhydramine HCl (Benadryl) 25 mg PO [facility] Doxazosin Mesylate (Cardura) 1 mg PO [facility] Last Admin: 05/18/18 21:20 Dose: 1 mg Furosemide (Lasix) 40 mg PO DAILY [facility] Last Admin: 05/19/18 09:37 Dose: 40 mg Hydralazine HCl (Apresoline) 25 mg PO TID [facility] Last Admin: 05/19/18 09:37 Dose: 25 mg Levofloxacin 500 mg/ IV (Solution) 100 mls @ 100 mls/hr IVPB Q24H [facility] Last Admin: 05/18/18 16:45 Dose: 100 mls/hr Ibuprofen (Motrin) 600 mg PO QID PRN PRN Reason: Pain Insulin Aspart (Novolog) 0 unit SQ [facility]; Protocol Last Admin: 05/19/18 13:04 Dose: 5 unit Isosorbide Mononitrate (Ismo) 10 mg PO DAILY@0900,1600,2300 [facility] Last Admin: 05/19/18 09:37 Dose: 10 mg Loperamide HCl (Imodium) 2 mg PO QID PRN PRN Reason: Diarrhea Last Admin: 05/19/18 13:15 Dose: 2 mg Loratadine (Claritin) 10 mg PO [facility] Last Admin: 05/18/18 21:21 Dose: 10 mg Methylprednisolone Sodium Succinate (Solu-Medrol) 60 mg IV Q6HR [facility] Last Admin: 05/19/18 13:01 Dose: 60 mg Metoprolol Succinate (Toprol Xl) 100 mg PO [facility] Last Admin: 05/18/18 21:21 Dose: 100 mg Patient's Own Med ( Elviteg/Chasidy/Emtric/Tenofo Dis [Stribild Tablet] 1 Tab) 1 tab PO [facility] Lumigan 0.01% (Ophthalmic Solution) 1 each BOTH EYES [facility] Ondansetron HCl (Zofran Odt) 8 mg PO DAILY PRN PRN Reason: Nausea Trazodone HCl (Desyrel) 200 mg PO [facility] Last Admin: 05/18/18 22:57 Dose: 200 mg Valacyclovir HCl (Valtrex) 500 mg PO Q8HR PRN PRN Reason: Cold Sores Witch Christa (Tucks Medicated Pads) 1 each TOPICAL 5XD PRN PRN Reason: Hemorrhoids Home Medications Medication Instructions Recorded Confirmed Type Betamethasone Valerate 1 applic TOPICAL DAILY PRN 09/06/17 05/18/18 History [Betamethasone Valerate 0.1%] Cetirizine HCl [Zyrtec] 10 mg PO HS 09/06/17 05/18/18 History Diazepam 10 mg PO HS 09/06/17 05/18/18 History Doxazosin [Cardura] 1 mg PO HS 09/06/17 05/18/18 History Elviteg/Chasidy/Emtric/Tenofo Dis 1 tab PO 09/06/17 05/18/18 History [Stribild Tablet] traZODone HCL [Desyrel] 200 mg PO HS 09/06/17 05/18/18 History Allopurinol [Zyloprim] 100 mg PO BID 11/01/17 05/18/18 History Metoprolol Succinate (ER) [Toprol 100 mg PO HS 11/01/17 05/18/18 History XL] Salmeterol Xinafoate [Serevent 1 puff INHALATION RT-BID 11/01/17 05/18/18 History Diskus] valACYclovir HCL [Valtrex] 500 mg PO Q8HR PRN 11/01/17 05/18/18 History hydrALAZINE HCL [Apresoline] 25 mg PO TID #90 tab 01/16/18 05/18/18 Rx Furosemide [Lasix] 40 mg PO DAILY 05/18/18 05/18/18 History Isosorbide Mononitrate [Monoket] 10 mg PO TID 05/18/18 05/18/18 History Ondansetron [Zofran ODT] 8 mg PO DAILY PRN 11/17/18 11/17/18 History Allergies Allergy/AdvReac Type Severity Reaction Status Date / Time abacavir [From Ziagen] Allergy Anaphylaxis Verified 05/18/18 12:04 efavirenz [From Sustiva] Allergy Anaphylaxis Verified 05/18/18 12:04 hydrocodone Allergy Rapid Verified 05/18/18 12:04 [From Hysingla ER] Heart Rate sulfamethoxazole Allergy HIGH Verified 05/18/18 12:04 [From Bactrim] CREATININE LEVEL trimethoprim [From Bactrim] Allergy HIGH Verified 05/18/18 12:04 CREATININE morphine AdvReac Itching Verified 05/18/18 12:04 Physical Exam Vitals: Vital Signs Temp Pulse Pulse Resp BP BP Pulse Ox 05/19/18 12:00 97.9 F 75 16 147/83 96 05/19/18 11:39 80 05/19/18 11:30 76 05/19/18 08:14 84 05/19/18 08:00 98.1 F 82 18 153/84 05/19/18 07:55 76 05/19/18 03:53 97.8 F 86 19 123/68 95 05/19/18 02:34 80 05/19/18 02:17 72 05/18/18 23:06 91 19 141/83 92 L 05/18/18 21:53 88 05/18/18 21:33 97.8 F 88 05/18/18 21:25 87 20 145/94 95 05/18/18 21:05 16 05/18/18 20:20 93 16 138/76 96 05/18/18 18:00 85 16 147/97 95 05/18/18 17:00 93 18 164/89 95 05/18/18 16:29 83 05/18/18 16:21 73 05/18/18 16:00 73 18 172/99 96 05/18/18 15:00 77 18 150/98 96 05/18/18 14:59 77 18 150/98 96 05/18/18 14:00 75 18 139/89 95 Intake and Output 05/18/18 05/19/18 05/19/18 22:59 06:59 14:59 Intake Total 360 Balance 360 Intake: Oral 360 Other: # Voids 5 2 1 Weight 108.862 kg 99.09 kg 57-year-old male with obesity is apparently much more comfortable at admission HEENT: Anicteric conjunctiva are pink and moist nasal mucosa grossly intact without significant lesions, there is no thrush. Neck: The neck is supple without significant lymphadenopathy or thyromegaly. Lungs: They're symmetrical air entry. Expiratory wheezes Have already improved but are still audible.No significant dullness or egophony is noted. Heart: Regular rate and rhythm with an audible S1-S2, no S3 soft S4. There is no significant murmur click or rub, PMI was nondisplaced. Abdomen: Obese, Positive bowel sounds soft and nontender without palpable masses or organomegaly. There was no guarding or rebound. Extremities: The upper extremities have excellent pulses they are symmetric, no significant petechiae or telangiectasia. No splinter hemorrhages were noted. The lower extremities are free from significant edema. The peripheral pulses were 2+ and symmetric. Neuro: Awake alert oriented to person place and time. There are no acute new gross focal sensory motor deficits. Results CBC & Chem 7: 05/18/18 12:05 05/18/18 12:05 Labs: Abnormal Lab Results - Last 24 Hours (Table) 05/18/18 05/19/18 05/19/18 Range/Units 22:56 06:34 11:54 POC Glucose (mg/dL) 216 H 171 H 195 H (75-99) mg/dL Laboratory Results WBC 6.8 k/uL (3.8-10.6) 05/18/18 12:05 RBC 4.64 m/uL (4.30-5.90) 05/18/18 12:05 Hgb 14.4 gm/dL (13.0-17.5) 05/18/18 12:05 Hct 41.6 % (39.0-53.0) 05/18/18 12:05 MCV 89.6 fL (80.0-100.0) 05/18/18 12:05 MCH 31.0 pg (25.0-35.0) 05/18/18 12:05 MCHC 34.6 g/dL (31.0-37.0) 05/18/18 12:05 RDW 13.7 % (11.5-15.5) 05/18/18 12:05 Plt Count 122 k/uL (150-450) L 05/18/18 12:05 Neutrophils % 62 % 05/18/18 12:05 Lymphocytes % 28 % 05/18/18 12:05 Monocytes % 6 % 05/18/18 12:05 Eosinophils % 3 % 05/18/18 12:05 Basophils % 0 % 05/18/18 12:05 Neutrophils # 4.2 k/uL (1.3-7.7) 05/18/18 12:05 Lymphocytes # 1.9 k/uL (1.0-4.8) 05/18/18 12:05 Monocytes # 0.4 k/uL (0-1.0) 05/18/18 12:05 Eosinophils # 0.2 k/uL (0-0.7) 05/18/18 12:05 Basophils # 0.0 k/uL (0-0.2) 05/18/18 12:05 PT 9.6 sec (9.0-12.0) 05/18/18 12:05 INR 1.0 (<1.2) 05/18/18 12:05 APTT 23.4 sec (22.0-30.0) 05/18/18 12:05 D-Dimer 0.53 mg/L FEU (<0.60) 05/18/18 13:20 Sodium 143 mmol/L (137-145) 05/18/18 12:05 Potassium 4.3 mmol/L (3.5-5.1) 05/18/18 12:05 Chloride 111 mmol/L (98-107) H 05/18/18 12:05 Carbon Dioxide 23 mmol/L (22-30) 05/18/18 12:05 Anion Gap 9 mmol/L 05/18/18 12:05 BUN 18 mg/dL (9-20) 05/18/18 12:05 Creatinine 0.84 mg/dL (0.66-1.25) 05/18/18 12:05 Est GFR (CKD-EPI)AfAm >90 (>60 ml/min/1.73 sqM) 05/18/18 12:05 Est GFR (CKD-EPI)NonAf >90 (>60 ml/min/1.73 sqM) 05/18/18 12:05 Glucose 122 mg/dL (74-99) H 05/18/18 12:05 POC Glucose (mg/dL) 195 mg/dL (75-99) H 05/19/18 11:54 POC Glu Rn Practitioner ID Marcella Webster 05/19/18 11:54 Calcium 8.9 mg/dL (8.4-10.2) 05/18/18 12:05 Magnesium 1.8 mg/dL (1.6-2.3) 05/18/18 12:05 Total Bilirubin 0.6 mg/dL (0.2-1.3) 05/18/18 12:05 AST 32 U/L (17-59) 05/18/18 12:05 ALT 39 U/L (21-72) 05/18/18 12:05 Alkaline Phosphatase 71 U/L (38-126) 05/18/18 12:05 Total Creatine Kinase 88 U/L (55-170) 05/18/18 12:05 CK-MB (CK-2) 0.7 ng/mL (0.0-2.4) 05/18/18 12:05 CK-MB (CK-2) Rel Index 0.8 05/18/18 12:05 Troponin I 0.016 ng/mL (0.000-0.034) 05/18/18 12:05 NT-Pro-B Natriuret Pep 730 pg/mL 05/18/18 12:05 Total Protein 6.9 g/dL (6.3-8.2) 05/18/18 12:05 Albumin 3.8 g/dL (3.5-5.0) 05/18/18 12:05 Urine Color Colorless 05/18/18 14:46 Urine Appearance Clear (Clear) 05/18/18 14:46 Urine pH 5.5 (5.0-8.0) 05/18/18 14:46 Ur Specific [place] 1.007 (1.001-1.035) 05/18/18 14:46 Urine Protein Negative (Negative) 05/18/18 14:46 Urine Glucose (UA) Negative (Negative) 05/18/18 14:46 Urine Ketones Negative (Negative) 05/18/18 14:46 Urine Blood Negative (Negative) 05/18/18 14:46 Urine Nitrite Negative (Negative) 05/18/18 14:46 Urine Bilirubin Negative (Negative) 05/18/18 14:46 Urine Urobilinogen <2.0 mg/dL (<2.0) 05/18/18 14:46 Ur Leukocyte Esterase Negative (Negative) 05/18/18 14:46 Assessment and Plan (1) Acute exacerbation of chronic obstructive airways disease Narrative/Plan: 57-year-old male presents to Hospital with significant shortness of breath that has occurred apparently after exposure to dust from tile work that his partner is performing at the house. He also relates that the furnace may be malfunctioning but the partner is not having acute respiratory issues. He is having no fevers or chills. Responding well to steroid therapy and respiratory treatments. His HIV has been relatively stable and should continue his Stribild as before. During the summer he had acute renal failure appears to be well at this point in time . He has a history of mitral valve disease that appears to be stable at this time does not appear to have acute congestive heart failure. He does have difficulties with increasing obesity and with the steroid therapy has blood sugars are quite elevated receiving insulin at this point in time and will be monitored in the outpatient setting also. Does not appear to have pneumonia is receiving levofloxacin for an acute exacerbation of COPD should be limited to no more than 5 total days. Current Visit: Yes Status: Acute Code(s): J44.1 - CHRONIC OBSTRUCTIVE PULMONARY DISEASE W (ACUTE) EXACERBATION SNOMED Code(s): 213713627 (2) HIV (human immunodeficiency virus infection) Current Visit: No Status: Acute Code(s): B20 - HUMAN IMMUNODEFICIENCY VIRUS [HIV] DISEASE SNOMED Code(s): 60480372 (3) History of mitral valve repair Current Visit: No Status: Acute Code(s): Z98.890 - OTHER SPECIFIED POSTPROCEDURAL STATES SNOMED Code(s): 132408554
--- NOTE | 2018-05-19 14:24 | P.CRDCN ---
History of Present Illness Consult date: 05/19/18 History of present illness: This is a 57-year-old gentleman with a past medical history significant for valvular heart disease and status post mitral valve repair was performed about 10 years ago at the [facility] and the patient currently follows with a manager web, Dr. Cain, history of HIV under the care of Dr. Pino, and hypertension. The patient states he has had ceramic tile powder burst in his home and he is inhaled this and has had ongoing problems with shortness of breath because of it. He states he has also been recently caring heavy piece of furniture in the house. He complains of midsternal chest pain that is at the site of the incision and in the muscle. He states he has had this on and off since he had surgery for his mitral valve. He denies having any other symptoms with it. He has had no sweats, nausea, vomiting, lightheadedness or dizziness. He last saw his manager web and was placed on isosorbide and is scheduled for stress test in June. He came into [facility] emergency center for evaluation found to have a troponin of 0.0.6, pro BNP was 730. He was admitted to the selective care unit and treated for COPD and asthma exacerbation the care of Dr. Liu in. He has also been seen by Dr. Pino for his HIV history. EKG reveals sinus mechanism with no acute ST or T wave abnormalities noted. Chest x-ray reveals COPD, cardiomegaly. Suspect underlying pulmonary fibrosis. CTA of the chest shows no evidence of pulmonary embolism. No focal consolidation. Postictal changes of the chest and hepatic steatosis found. Laboratory data review WBC 6.8, hemoglobin 14.4, platelets 122, sodium 143, potassium 4., creatinine 0.84, cardiac enzymes negative 1. Current cardiac medications include Lasix 40 mg daily, hydralazine 25 mg 3 times daily, Ismo 10 mg 3 times daily, Toprol-XL 100 mg at bedtime. At the time of my exam: CONSTITUTIONAL: Denies fever. Denies chills. EYES: Denies blurred vision. Denies vision changes. Denies eye pain. EARS, NOSE, MOUTH & THROAT: Denies headache. Denies sore throat. Denies ear pain. Complains of sinus drainage. CARDIOVASCULAR: Complains of chest pain. Complains of shortness of breath. Denies orthopnea. Denies PND. Denies palpitations. RESPIRATORY: Complains of cough. Complains of shortness of breath GASTROINTESTINAL: Denies abdominal pain. Denies diarrhea. Denies constipation. Denies nausea. Denies vomiting. MUSCULOSKELETAL: Denies myalgias. Complains of pain to the left elbow. INTEGUMENTARY: Denies pruitis. Denies rash. NEUROLOGIC: Denies numbness. Denies tingling. Denies weakness. PSYCHIATRIC: Denies anxiety. Denies depression. ENDOCRINE: Denies fatigue. Denies weight change. Denies polydipsia. Denies polyurina. GENITOURINARY: Denies burning, hematuria or urgency with micturation. HEMATOLOGIC: Denies history of anemia. Denies bleeding. Blood pressure 147/83 heart rate 75 afebrile maintaining oxygen saturation on room air. GENERAL: This is a 66-year-old male in no apparent distress at the time of my examination. HEENT: Head is atraumatic, normocephalic. Pupils are equal, round. Sclerae anicteric. Conjunctivae are clear. Mucous membranes of the mouth are moist. Neck is supple. There is no jugular venous distention. No carotid bruit is heard. LUNGS: Clear to auscultation no wheezes, rales or rhonchi. Midsternal chest wall tenderness is noted on palpation. HEART: Regular rate and rhythm without murmurs, rubs or gallops. S1 and S2 heard. ABDOMEN: Soft, nontender. Bowel sounds are heard. No organomegaly noted. EXTREMITIES: No evidence of lower extremity edema and no calf tenderness noted. Left elbow warm to touch, red and swollen. VASCULAR: Radial and dorsalis pedis pulses palpated, no evidence of clubbing. NEUROLOGIC: Patient is awake, alert and oriented x3. ASSESSMENT Musculoskeletal chest pain. Acute coronary syndrome ruled out. History of mitral valve repair, stable. COPD/asthma exacerbation. History of HIV under the care of Dr. Pino. Hypertension. PLAN An acute coronary event has been ruled out. Exact etiology of chest pain is most likely musculoskeletal. Obtain 2-D echocardiogram and Doppler study to assess cardiac structure and function. Continue Lasix 40 mg daily, hydralazine 25 mg 3 times daily, Ismo 10 mg 3 times daily, Toprol-XL 100 mg at bedtime. Ongoing medical management. Patient follows with Dr. Cain at [facility] scheduled for stress test in June. Thank you kindly for this consultation. Nurse Practitioner note has been reviewed, I agree with a documented findings and plan of care. Patient was seen and examined. Past Medical History Past Medical History: Asthma, Heart Failure, COPD, Fibromyalgia, GERD/Reflux, Hypertension, Prostate Disorder Additional Past Medical History / Comment(s): Mitral valve disease and a previous mitral valve surgery, possibly repair versus placement, HIV positive, past HTN and recently low blood pressures, BPH, R ankle gout, chronic nausea, bilateral glaucoma, DDD, chronic pain syndrome, chronic low back and bilateral hip pain and occasional cervical pain, DDD, lumbar stenosis/spondylosis, abdominal hernia, previous history of drug overdose. History of Any Multi-Drug Resistant Organisms: None Reported Past Surgical History: Heart Catheterization, Hernia Repair, Orthopedic Surgery Additional Past Surgical History / Comment(s): Mitral valve repair at [facility], R inguinal hernia x2, L inguinal hernia, epidural injections to back, hip injections, RFAs, spinal cord stimulator trial. Past Anesthesia/Blood Transfusion Reactions: No Reported Reaction Past Psychological History: Anxiety, Depression Additional Psychological History / Comment(s): He lives with his significant other, he is healthy. Pet dog in the home. No experience no international travel. Positive tobacco use. History of extensive alcohol use. History of narcotic dependence Smoking Status: Light tobacco smoker Past Alcohol Use History: Occasional Additional Past Alcohol Use History / Comment(s): Pt is a smoker occasionnaly Past Drug Use History: None Reported Additional Drug Use History / Comment(s): Pt smokes marijuana on occasion. He last used cocaine 25 yrs ago. previous history of opiod abuse and overdose - Past Family History Father Additional Family Medical History / Comment(s): Father was injured at work and of complication during his hospitalization. Mother Additional Family Medical History / Comment(s): Mother is from alcoholism. Medications and Allergies Home Medications Medication Instructions Recorded Confirmed Type Betamethasone Valerate 1 applic TOPICAL DAILY PRN 09/06/17 05/18/18 History [Betamethasone Valerate 0.1%] Cetirizine HCl [Zyrtec] 10 mg PO HS 09/06/17 05/18/18 History Diazepam 10 mg PO HS 09/06/17 05/18/18 History Doxazosin [Cardura] 1 mg PO HS 09/06/17 05/18/18 History Elviteg/Chasidy/Emtric/Tenofo Dis 1 tab PO HS 09/06/17 05/18/18 History [Stribild Tablet] traZODone HCL [Desyrel] 200 mg PO HS 09/06/17 05/18/18 History Allopurinol [Zyloprim] 100 mg PO BID 11/01/17 05/18/18 History Metoprolol Succinate (ER) [Toprol 100 mg PO HS 11/01/17 05/18/18 History XL] Salmeterol Xinafoate [Serevent 1 puff INHALATION RT-BID 11/01/17 05/18/18 History Diskus] valACYclovir HCL [Valtrex] 500 mg PO Q8HR PRN 11/01/17 05/18/18 History hydrALAZINE HCL [Apresoline] 25 mg PO TID #90 tab 01/16/18 05/18/18 Rx Furosemide [Lasix] 40 mg PO DAILY 05/18/18 05/18/18 History Isosorbide Mononitrate [Monoket] 10 mg PO TID 05/18/18 05/18/18 History Ondansetron [Zofran ODT] 8 mg PO DAILY PRN 05/18/18 05/18/18 History Allergies Allergy/AdvReac Type Severity Reaction Status Date / Time abacavir [From Ziagen] Allergy Anaphylaxis Verified 05/18/18 12:04 efavirenz [From Sustiva] Allergy Anaphylaxis Verified 05/18/18 12:04 hydrocodone Allergy Rapid Verified 05/18/18 12:04 [From Hysingla ER] Heart Rate sulfamethoxazole Allergy HIGH Verified 05/18/18 12:04 [From Bactrim] CREATININE LEVEL trimethoprim [From Bactrim] Allergy HIGH Verified 05/18/18 12:04 CREATININE morphine AdvReac Itching Verified 05/18/18 12:04 Physical Exam Vitals: Vital Signs Temp Pulse Pulse Resp BP BP Pulse Ox 05/19/18 08:14 84 05/19/18 08:00 98.1 F 82 18 153/84 05/19/18 07:55 76 05/19/18 03:53 97.8 F 86 19 123/68 95 05/19/18 02:34 80 05/19/18 02:17 72 05/18/18 23:06 91 19 141/83 92 L 05/18/18 21:53 88 05/18/18 21:33 97.8 F 88 05/18/18 21:25 87 20 145/94 95 05/18/18 21:05 16 05/18/18 20:20 93 16 138/76 96 05/18/18 18:00 85 16 147/97 95 05/18/18 17:00 93 18 164/89 95 05/18/18 16:29 83 05/18/18 16:21 73 05/18/18 16:00 73 18 172/99 96 05/18/18 15:00 77 18 150/98 96 05/18/18 14:59 77 18 150/98 96 05/18/18 14:00 75 18 139/89 95 05/18/18 12:15 68 05/18/18 12:06 68 05/18/18 11:53 24 05/18/18 11:45 64 24 173/111 98 05/18/18 11:39 66 20 96 05/18/18 11:24 97.5 F L 64 18 161/88 97 Intake and Output 05/18/18 05/19/18 05/19/18 22:59 06:59 14:59 Intake Total 120 Balance 120 Intake: Oral 120 Other: # Voids 5 2 Weight 108.862 kg 99.09 kg Results 05/18/18 12:05 05/18/18 12:05 Cardiac Enzymes 05/18/18 05/18/18 Range/Units 12:05 12:05 AST 32 (17-59) U/L CK-MB (CK-2) 0.7 (0.0-2.4) ng/mL Troponin I 0.016 (0.000-0.034) ng/mL Coagulation 05/18/18 Range/Units 12:05 PT 9.6 (9.0-12.0) sec APTT 23.4 (22.0-30.0) sec CBC 05/18/18 Range/Units 12:05 WBC 6.8 (3.8-10.6) k/uL RBC 4.64 (4.30-5.90) m/uL Hgb 14.4 (13.0-17.5) gm/dL Hct 41.6 (39.0-53.0) % Plt Count 122 L (150-450) k/uL Comprehensive Metabolic Panel 05/18/18 Range/Units 12:05 Sodium 143 (137-145) mmol/L Potassium 4.3 (3.5-5.1) mmol/L Chloride 111 H (98-107) mmol/L Carbon Dioxide 23 (22-30) mmol/L BUN 18 (9-20) mg/dL Creatinine 0.84 (0.66-1.25) mg/dL Glucose 122 H (74-99) mg/dL Calcium 8.9 (8.4-10.2) mg/dL AST 32 (17-59) U/L ALT 39 (21-72) U/L Alkaline Phosphatase 71 (38-126) U/L Total Protein 6.9 (6.3-8.2) g/dL Albumin 3.8 (3.5-5.0) g/dL Current Medications Generic Name Dose Route Start Last Admin Trade Name Freq PRN Reason Stop Dose Admin Albuterol/Ipratropium 3 ml 05/18/18 16:00 05/19/18 07:55 Duoneb 0.5 Mg-3 Mg/3 Ml Soln INHALATION 3 ml RT-Q4H ALEX Administration Allopurinol 100 mg 05/18/18 21:00 05/19/18 09:37 Zyloprim PO 100 mg BID ALEX Administration Betamethasone Dipropionate 1 applic 05/18/18 14:03 Diprolene TOPICAL DAILY PRN Rash Budesonide 0.5 mg 05/18/18 20:00 05/19/18 07:55 Pulmicort INHALATION 0.5 mg RT-BID ALEX Administration Diazepam 10 mg 05/18/18 21:00 05/18/18 22:57 Valium PO 10 mg HS ALEX Administration Diphenhydramine HCl 25 mg 05/19/18 21:00 Benadryl PO HS ALEX Doxazosin Mesylate 1 mg 05/18/18 21:00 05/18/18 21:20 Cardura PO 1 mg HS ALEX Administration Furosemide 40 mg 05/19/18 09:00 05/19/18 09:37 Lasix PO 40 mg DAILY ALEX Administration Hydralazine HCl 25 mg 05/18/18 16:00 05/19/18 09:37 Apresoline PO 25 mg TID ALEX Administration Levofloxacin 500 mg/ IV 100 mls @ 100 mls/hr 05/18/18 15:00 05/18/18 16:45 Solution IVPB 100 mls/hr Q24H ALEX Administration Ibuprofen 600 mg 05/19/18 10:39 Motrin PO QID PRN Pain Insulin Aspart 0 unit 05/18/18 21:00 05/19/18 07:07 Novolog SQ 1 unit ACHS [facility] Administration Protocol Isosorbide Mononitrate 10 mg 05/18/18 16:00 05/19/18 09:37 Ismo PO 10 mg DAILY@0900,1600,2300 [facility] Administration Loperamide HCl 2 mg 05/19/18 09:52 Imodium PO QID PRN Diarrhea Loratadine 10 mg 05/18/18 21:00 05/18/18 21:21 Claritin PO 10 mg HS [facility] Administration Methylprednisolone Sodium Succinate 60 mg 05/18/18 18:00 05/19/18 07:07 Solu-Medrol IV 60 mg Q6HR [facility] Administration Metoprolol Succinate 100 mg 05/18/18 21:00 05/18/18 21:21 Toprol Xl PO 100 mg HS [facility] Administration Non-Formulary Medication 1 tab 05/18/18 21:00 05/18/18 22:49 Elviteg/Chasidy/Emtric/Tenofo Dis [Stribild Tablet] PO Not Given HS [facility] Ondansetron HCl 8 mg 05/18/18 14:03 Zofran Odt PO DAILY PRN Nausea Trazodone HCl 200 mg 05/18/18 21:00 05/18/18 22:57 Desyrel PO 200 mg HS [facility] Administration Valacyclovir HCl 500 mg 05/18/18 14:03 Valtrex PO Q8HR PRN Cold Sores Witch Christa 1 each 05/19/18 09:55 Tucks Medicated Pads TOPICAL 5XD PRN Hemorrhoids Intake and Output 05/18/18 05/19/18 05/19/18 22:59 06:59 14:59 Intake Total 120 Balance 120 Intake: Oral 120 Other: # Voids 5 2 Weight 108.862 kg 99.09 kg 05/18/18 12:05 05/18/18 12:05
--- NOTE | 2018-05-19 15:35 | P.PN ---
Subjective Progress Note Date: 05/19/18 57-year-old male patient is coming in to the MRSA problem because of increased shortness of breath going on over a month. His been getting progressively worse in terms of his breathing. He had some limited cough and sputum production. No hemoptysis. No pleurisy. Chest was diffusely sore. No trauma to the chest. No anginal type of chest pain. No signs of congestion heart failure. Chest x-ray showing some changes consistent with COPD. EKG showing a normal sinus rhythm without any acute ST segment abnormalities. BNP level was nonelevated. First set of cardiac enzyme is negative. This patient is known to me. I took care of him approximately 5 months ago when he came into the ICU following a drug overdose and during that time the patient had to be intubated and placed on a mechanical ventilator briefly to deal with complications of respiratory failure related to drug overdose. He is a ex-smoker and he on and off smokes few cigarettes. The patient has history of HIV and he is on antiretroviral treatment. He has previous history of mitral valve disease that was surgically repaired. Also has issues with hypertension and BPH. He has been hospitalized in December 2017 for an acute kidney injury from which she completely recovered. Subsequently in January 2018 he was admitted for overdosing on a combination of pills including Valium and trazodone and metoprolol. He drinks alcohol occasionally and he binge drinks. He has history of chronic pain in addition. He has been operated on at [facility] for cardiac disease/mitral valve disease On 05/19/2018 I'm seeing this patient for a follow-up. Clinically much improved the shortness of breath compared to yesterday. CT angios the chest was done and showed no evidence of any pulmonary embolism. No significant pneumonia or pulmonary infiltration. Last bronchus spastic and wheezy compared to yesterday. The patient is on a, initial bronchodilators and steroids and empiric antibiotic coverage with Levaquin. CT of the chest was done and showed no acute abnormalities. The patient is currently being cheered for an acute asthma/COPD exacerbation. He has HIV and has been followed up by Dr. Pino. Objective - Vital Signs Vital signs: Vital Signs Temp 97.9 F 05/19/18 12:00 Pulse 75 05/19/18 12:00 Resp 16 05/19/18 12:00 BP 147/83 05/19/18 12:00 Pulse Ox 96 05/19/18 12:00 Intake & Output 05/18/18 05/19/18 05/19/18 18:59 06:59 18:59 Intake Total 360 Balance 360 Weight 108.862 kg 99.09 kg Intake: Oral 360 Other: # Voids 2 1 - Exam Gen. appearance, comfortable mild degree of respiratory distress even at rest. Head exam was generally normal. There was no scleral icterus or corneal arcus. Mucous membranes were moist. Neck was supple and without jugular venous distension, thyromegaly, or carotid bruits. Carotids were easily palpable bilaterally. There was no adenopathy. Lungs sounds are diminished and improved air entry bilaterally Cardiac exam revealed the PMI to be normally situated and sized. The rhythm was regular and no extrasystoles were noted during several minutes of auscultation. The first and second heart sounds were normal and physiologic splitting of the second heart sound was noted. There were no murmurs, rubs, clicks, or gallops. Abdominal exam revealed normal bowel sounds. The abdomen was soft, non-tender, and without masses, organomegaly, or appreciable enlargement of the abdominal aorta. Examination of the extremities revealed easily palpable radial, femoral and pedal pulses. There was no cyanosis, clubbing or edema. Examination of the skin revealed no evidence of significant rashes, suspicious appearing nevi or other concerning lesions. Neurologically the patient is awake and alert that is no focal neurological deficit. Psychiatric appropriate mood and affect - Labs CBC & Chem 7: 05/18/18 12:05 05/18/18 12:05 Labs: Abnormal Lab Results - Last 24 Hours (Table) 05/18/18 05/19/18 05/19/18 Range/Units 22:56 06:34 11:54 POC Glucose (mg/dL) 216 H 171 H 195 H (75-99) mg/dL Assessment and Plan Plan: Assessment 1 acute COPD/asthma exacerbation with secondary shortness of breath. Patient has also symptoms of tracheal bronchitis. Chest x-ray is free of any acute pulmonary infiltrates. Based on the reported history, the patient is HIV yet he has been taking his anti-retroviral agents and he has been nonimmunocompromised at this point in time 2 history of mitral valve repair, preserved LV function based on the most recent echocardiogram 3 CHF with diastolic dysfunction and a preserved LV function 4 hypertension 5 HIV and patient is currently on antiretrovirals treatment 6 BPH 7 acid reflux 8 recent hospitalization for acute kidney injury, recovered 9 fibromyalgia 10 anxiety/depression Plan Clinically improving. Continue same treatment for another 24 hours.Further improvement over the next 24 hours. Echocardiogram was obtained by cardiology. Continue oral Lasix. Infectious disease input was appreciated. We'll continue to follow. Patrick to step up his outpatient medication and would suggest dropping the Serevent and using Symbicort for COPD/asthma coverage/ maintenance.
[2018-05-19] MEDS: LEVOFLOXACIN 500MG-D5W PMX 500 MG in DEXTROSE/WATER 1 100ML.BAG IVPB SCH (15:43)
[2018-05-19 16:47] LABS: Glucose,Whole Blood 196 mg/dL (75-99)
[2018-05-19] MEDS ORDERED: diphenhydrAMINE 50 MG CAP PO PRN (18:49)
[2018-05-19] MEDS: DIAZEPAM 5 MG TAB PO SCH (20:19)
[2018-05-19] MEDS: METOPROLOL SUCCINATE (ER) 100 MG TAB.ER.24H PO SCH (20:19)
[2018-05-19] MEDS: LORATADINE 10 MG TAB PO SCH (20:20)
[2018-05-19 20:21] LABS: Glucose,Whole Blood 198 mg/dL (75-99)
[2018-05-19] MEDS: traZODone HCL 100 MG TAB PO SCH (20:30)
[2018-05-19] MEDS ORDERED: LUMIGAN 0.01% OPHTHALMIC SOLUTION BOTH EYES SCH (21:00)
[2018-05-19] MEDS ORDERED: HEPARIN SODIUM,PORCINE 5,000 UNIT/ML 1 ML VIAL SQ SCH (21:00)
[2018-05-19] MEDS ORDERED: FAMOTIDINE 20 MG TAB PO SCH (21:00)
[2018-05-19] MEDS ORDERED: [UNRECOGNIZED DRUG - OTHER] PO SCH (21:00)
[2018-05-19] MEDS ORDERED: diphenhydrAMINE 25 MG CAP PO SCH (21:00)
[2018-05-19] MEDS: DOXAZOSIN 1 MG TAB PO SCH (21:29)
[2018-05-19 21:42] VITALS: RESP 17; TEMP 97.5
[2018-05-19 23:32] VITALS: BP 131/74; PULSE 91
--- NOTE | 2018-05-19 23:50 | PN ---
PROGRESS NOTE DATE OF SERVICE: 05/19/2018. HISTORY: He has been hemodynamically stable. He is less short of breath, but not back to baseline. PHYSICAL EXAMINATION: His blood pressure is 160/81, respiratory rate is 17, pulse rate 85, temperature 97.5, O2 saturation on 2 L by nasal cannula is 95%. HEENT is unremarkable. Chest reveals decreased breath sounds with expiratory wheeze. Cardiovascular system reveals an S1, S2. Abdomen is soft. There is trace pedal edema. LABS: Blood sugar of 122. White count 6.8, hemoglobin 14.4, platelet count 122,000. Eosinophil count of 0.200. IMPRESSION: 1. Asthma with chronic obstructive pulmonary disease with acute exacerbation. 2. HIV disease. 3. Alcoholism. 4. Previous cardiac disease with mitral valve repair. PLAN: At this point in time, continue bronchodilators, steroids, supportive care, and antibiotics. Increase his activity level. May require a sleep study as an outpatient. His medications were reviewed. MMODL / IJN: [id number] /
[2018-05-20] MEDS: IPRATROPIUM-ALBUTEROL 3 ML NEB INHALATION SCH (05:22)
[2018-05-20 13:22] LABS: Hemoglobin A1C 5.4 % (4.0-6.0)
== END 2018-05-20 06:36 | disposition left against medical advice (07) | DRG 191 ==
LOC: EC 11:15 → 3SCARD 14:00
PROVIDERS: ADMIT Family Medicine; ATTEND Family Medicine
DX: J44.1 Chronic obstructive pulmonary disease with (acute) exacerbation (principal); J45.901 Unspecified asthma with (acute) exacerbation; I42.9 Cardiomyopathy, unspecified; I50.32 Chronic diastolic (congestive) heart failure; N17.9 Acute kidney failure, unspecified; E66.9 Obesity, unspecified; F10.20 Alcohol dependence, uncomplicated; F17.200 Nicotine dependence, unspecified, uncomplicated; F41.9 Anxiety disorder, unspecified; F32.9 Major depressive disorder, single episode, unspecified; H40.9 Unspecified glaucoma; I11.0 Hypertensive heart disease with heart failure; K21.9 Gastro-esophageal reflux disease without esophagitis; K76.0 Fatty (change of) liver, not elsewhere classified; M79.7 Fibromyalgia; N40.0 Benign prostatic hyperplasia without lower urinary tract symptoms; Z81.1 Family history of alcohol abuse and dependence; Z86.14 Personal history of Methicillin resistant Staphylococcus aureus infection; Z91.19 Patient's noncompliance with other medical treatment and regimen; Z95.1 Presence of aortocoronary bypass graft; Z79.899 Other long term (current) drug therapy; Z88.5 Allergy status to narcotic agent; Z88.2 Allergy status to sulfonamides; Z88.8 Allergy status to other drugs, medicaments and biological substances; Z21 Asymptomatic human immunodeficiency virus [HIV] infection status
CPT/HCPCS: 36415; 71046; 71275; 80053; 81003; 82550; 82553; 83036; 83735; 83880; 84484; 85025; 85379; 85610; 85730; 93005; 94640; 96365; 96367; 96375; 99291

== ENCOUNTER → 2018-06-03 | Outpatient (CLI) | payer MEDICARE, OTHER ==
[2018-06-03 12:56] LABS: Basophils % (A) 0 %; Eosinophils # (A) 0.1 k/uL (0-0.7); Eosinophils % (A) 3 %; HCT 44.8 % (39.0-53.0); HGB 14.9 gm/dL (13.0-17.5); Lymphocytes # (A) 1.3 k/uL (1.0-4.8); Lymphocytes % (A) 29 %; MCH 29.9 pg (25.0-35.0); MCHC 33.2 g/dL (31.0-37.0); MCV 89.8 fL (80.0-100.0); Mean Platelet Volume 7.5; Monocytes # (A) 0.3 k/uL (0-1.0); Monocytes % (A) 7 %; Neutrophils # (A) 2.8 k/uL (1.3-7.7); Neutrophils % (A) 60 %; Platelet Count 150 k/uL (150-450); RBC 4.99 m/uL (4.30-5.90); RDW 13.5 % (11.5-15.5); WBC 4.6 k/uL (3.8-10.6)
[2018-06-03 19:09] LABS: Albumin 4.4 g/dL (3.80-4.90); Albumin/Globulin Ratio 1.91 (1.20-2.10); Anion Gap 7.1 mmol/L (4.00-12.00); Calcium 8.8 mg/dL (8.7-10.3); Carbon Dioxide 29.9 mmol/L (21.6-31.8); Globulin 2.3 g/dL (2.1-3.7); Magnesium 1.7 mg/dL (1.5-2.4); Potassium 3.9 mmol/L (3.5-5.5); Total Bilirubin 0.4 mg/dL (0.3-1.2); Total Protein 6.7 g/dL (6.2-8.2)
[2018-06-04 11:26] LABS: T4/T8 Ratio (CD4:CD8) 0.2 (1.0-3.7)
[2018-06-04 14:21] LABS: HIV-1 RNA DETECTED (Not detected); HIV-1 RNA, Quant 330 Copies/mL (<40)
== END | disposition home or self-care (01) ==
LOC: LABWHC1 12:09
PROVIDERS: ATTEND Internal Medicine Infectious Disease
DX: B20 Human immunodeficiency virus [HIV] disease (principal)
CPT/HCPCS: 36415; 80053; 83735; 85025; 86360; 87536

== ENCOUNTER 2018-07-20 23:35 | Emergency (ER) | payer MEDICARE, OTHER ==
[2018-07-21] MEDS ORDERED: NITROGLYCERIN SL TABS 0.4 MG TAB SUBLINGUAL STA (00:36)
[2018-07-21 00:56] LABS: Basophils % (A) 1 %; Eosinophils # (A) 0.2 k/uL (0-0.7); Eosinophils % (A) 3 %; HCT 43.5 % (39.0-53.0); HGB 14.9 gm/dL (13.0-17.5); Lymphocytes # (A) 2.1 k/uL (1.0-4.8); Lymphocytes % (A) 37 %; MCH 30.8 pg (25.0-35.0); MCHC 34.3 g/dL (31.0-37.0); MCV 89.7 fL (80.0-100.0); Mean Platelet Volume 8.6; Monocytes # (A) 0.3 k/uL (0-1.0); Monocytes % (A) 5 %; Neutrophils # (A) 2.8 k/uL (1.3-7.7); Neutrophils % (A) 51 %; Platelet Count 136 k/uL (150-450); RBC 4.86 m/uL (4.30-5.90); RDW 14.3 % (11.5-15.5); WBC 5.5 k/uL (3.8-10.6)
[2018-07-21 01:06] LABS: ALT 27 U/L (21-72); AST 24 U/L (17-59); Albumin 4.1 g/dL (3.5-5.0); Alkaline Phosphatase 65 U/L (38-126); Anion Gap 6 mmol/L; Blood Urea Nitrogen 20 mg/dL (9-20); Calcium 8.8 mg/dL (8.4-10.2); Carbon Dioxide 24 mmol/L (22-30); Chloride 115 mmol/L (98-107); Glucose 89 mg/dL (74-99); Potassium 4.6 mmol/L (3.5-5.1); Sodium 145 mmol/L (137-145); Total Bilirubin 0.5 mg/dL (0.2-1.3); Total Protein 7.1 g/dL (6.3-8.2)
--- NOTE | 2018-07-21 01:06 | XR ---
EXAMINATION TYPE: XR chest 2V DATE OF EXAM: 07/21/2018 COMPARISON: 05/18/2018 HISTORY: Difficulty breathing TECHNIQUE: Frontal and lateral views of the chest are obtained. FINDINGS: There is coarse interstitial density in the lungs. Heart size is normal. There is no heart failure. There are chest leads. There are sternal wires. Costophrenic angles are clear. IMPRESSION: Pulmonary interstitial fibrosis. No change compared to old exam. No heart failure.
[2018-07-21 01:10] LABS: Creatine Kinase 108 U/L (55-170)
--- NOTE | 2018-07-21 01:10 | ED ---
General Adult HPI - General Chief complaint: Shortness of Breath Stated complaint: MARANDA Source: patient, family Mode of arrival: ambulatory Limitations: no limitations - Related Data Home Medications Medication Instructions Recorded Confirmed Betamethasone Valerate 1 applic TOPICAL DAILY PRN 09/06/17 05/18/18 [Betamethasone Valerate 0.1%] Cetirizine HCl [Zyrtec] 10 mg PO HS 09/06/17 05/18/18 Diazepam 10 mg PO HS 09/06/17 05/18/18 Doxazosin [Cardura] 1 mg PO HS 09/06/17 05/18/18 Elviteg/Chasidy/Emtric/Tenofo Dis 1 tab PO HS 09/06/17 05/18/18 [Stribild Tablet] traZODone HCL [Desyrel] 200 mg PO HS 09/06/17 05/18/18 Allopurinol [Zyloprim] 100 mg PO BID 11/01/17 05/18/18 Metoprolol Succinate (ER) [Toprol 100 mg PO HS 11/01/17 05/18/18 XL] Salmeterol Xinafoate [Serevent 1 puff INHALATION RT-BID 11/01/17 05/18/18 Diskus] valACYclovir HCL [Valtrex] 500 mg PO Q8HR PRN 11/01/17 05/18/18 Furosemide [Lasix] 40 mg PO DAILY 05/18/18 05/18/18 Isosorbide Mononitrate [Monoket] 10 mg PO TID 05/18/18 05/18/18 Ondansetron [Zofran ODT] 8 mg PO DAILY PRN 05/18/18 05/18/18 Previous Rx's Medication Instructions Recorded hydrALAZINE HCL [Apresoline] 25 mg PO TID #90 tab 01/16/18 Albuterol Inhaler [Ventolin Hfa 1 - 2 puff INHALATION RT-Q6H PRN 07/21/18 Inhaler] #1 inhaler Allergies Allergy/AdvReac Type Severity Reaction Status Date / Time abacavir [From Ziagen] Allergy Anaphylaxis Verified 07/20/18 23:51 efavirenz [From Sustiva] Allergy Anaphylaxis Verified 07/20/18 23:51 hydrocodone Allergy Rapid Verified 07/20/18 23:51 [From Hysingla ER] Heart Rate levofloxacin Allergy Itching Verified 07/20/18 23:51 sulfamethoxazole Allergy HIGH Verified 07/20/18 23:51 [From Bactrim] CREATININE LEVEL trimethoprim [From Bactrim] Allergy HIGH Verified 07/20/18 23:51 CREATININE morphine AdvReac Itching Verified 07/20/18 23:51 Review of Systems ROS Statement: Those systems with pertinent positive or pertinent negative responses have been documented in the HPI. ROS Other: All systems not noted in ROS Statement are negative. Past Medical History Past Medical History: Asthma, Heart Failure, COPD, Fibromyalgia, GERD/Reflux, Hypertension, Prostate Disorder Additional Past Medical History / Comment(s): Mitral valve disease and a previous mitral valve surgery, possibly repair versus placement, HIV positive, past HTN and recently low blood pressures, BPH, R ankle gout, chronic nausea, bilateral glaucoma, DDD, chronic pain syndrome, chronic low back and bilateral hip pain and occasional cervical pain, DDD, lumbar stenosis/spondylosis, abdominal hernia, previous history of drug overdose. History of Any Multi-Drug Resistant Organisms: None Reported Past Surgical History: Heart Catheterization, Hernia Repair, Orthopedic Surgery Additional Past Surgical History / Comment(s): Mitral valve repair at [facility], R inguinal hernia x2, L inguinal hernia, epidural injections to back, hip injections, RFAs, spinal cord stimulator trial. Past Anesthesia/Blood Transfusion Reactions: No Reported Reaction Past Psychological History: Anxiety, Depression Smoking Status: Light tobacco smoker Past Alcohol Use History: Occasional Past Drug Use History: None Reported - Past Family History Father Additional Family Medical History / Comment(s): Father was injured at work and of complication during his hospitalization. Mother Additional Family Medical History / Comment(s): Mother is from alcoholism. General Exam Limitations: no limitations Course Vital Signs 07/20/18 07/21/18 07/21/18 23:46 02:17 02:25 Temperature 97.6 F Pulse Rate 67 56 L 60 Respiratory 20 14 14 Rate Blood Pressure 195/97 O2 Sat by Pulse 97 Oximetry Medical Decision Making - Medical Decision Making Dictation was produced using [employer] dictation software. please excuse any grammatical, word or spelling errors. Chief Complaint: 57-year-old male past medical history of asthma, mitral valve repair presents with difficulty breathing. History of Present Illness: States he's been progressively short of breath. Patient states the symptoms are worse when he lies flat on his back. States that he doesn't have any trouble sleeping at night. No malaise on his side. Patient has history of mitral valve repair. He has a mild follow-up with cardiology at [facility]. Patient does complain of some chest pain in the left anterior chest. Patient has history of asthma. He is been trying to use his asthma inhalers however with no result. Patient denies any lower extremity pain or swelling. Patient denies any lower extremity pitting edema. He doesn't feel bloated or swollen anywhere in his body. Denies any recent weight gain. The ROS documented in this emergency department record has been reviewed and confirmed by me. Those systems with pertinent positive or negative responses have been documented in the HPI. All other systems are other negative and/or noncontributory. PHYSICAL EXAM: General Impression: Alert and oriented x3, not in acute distress HEENT: Normocephalic atraumatic, extra-ocular movements intact, pupils equal and reactive to light bilaterally, mucous membranes moist. Cardiovascular: Heart regular rate and rhythm, S1&S2 audible, no murmurs, rubs or gallops Chest: Lungs clear to auscultation bilaterally, no rhonchi, no wheeze, no rales Abdomen: Bowel sounds present, abdomen soft, non-tender, non-distended, no organomegaly Musculoskeletal: Pulses present and equal in all extremities, no peripheral edema Motor: Power 5/5 bilaterally, no focal deficits noted Neurological: CN II-XII grossly intact, no focal motor or sensory deficits noted Skin: Intact with no visualized rashes Psych: Normal affect and mood ED course: 57-year-old male with chief complaint of dyspnea. Vital signs upon arrival shows blood pressure 195/97, rest of vital signs within acceptable limits. Ventricular rate of 60, normal sinus rhythm,. Interval 176, QS 80, QTc 458. No IL prolongation, no QTC prolongation, no ST or T-wave changes noted. . Overall, this EKG is unremarkableLaboratory evaluation obtained following unremarkable. D-dimer is negative. Cardiac enzymes are negative. Prematurity peptide is negative. Chest x-ray shows pulmonary fibrosis. Patient given breathing treatment and steroids. Patient reevaluated found to be improved. Patient given albuterol inhaler prescription. He is told to follow-up with pulmonology. - Lab Data Result diagrams: 07/21/18 00:12 07/21/18 00:12 Lab Results 07/21/18 07/21/18 07/21/18 Range/Units 00:12 00:12 00:12 WBC 5.5 (3.8-10.6) k/uL RBC 4.86 (4.30-5.90) m/uL Hgb 14.9 (13.0-17.5) gm/dL Hct 43.5 (39.0-53.0) % MCV 89.7 (80.0-100.0) fL MCH 30.8 (25.0-35.0) pg MCHC 34.3 (31.0-37.0) g/dL RDW 14.3 (11.5-15.5) % Plt Count 136 L (150-450) k/uL Neutrophils % 51 % Lymphocytes % 37 % Monocytes % 5 % Eosinophils % 3 % Basophils % 1 % Neutrophils # 2.8 (1.3-7.7) k/uL Lymphocytes # 2.1 (1.0-4.8) k/uL Monocytes # 0.3 (0-1.0) k/uL Eosinophils # 0.2 (0-0.7) k/uL Basophils # 0.0 (0-0.2) k/uL PT (9.0-12.0) sec INR (<1.2) APTT (22.0-30.0) sec D-Dimer (<0.60) mg/L FEU Sodium 145 (137-145) mmol/L Potassium 4.6 (3.5-5.1) mmol/L Chloride 115 H (98-107) mmol/L Carbon Dioxide 24 (22-30) mmol/L Anion Gap 6 mmol/L BUN 20 (9-20) mg/dL Creatinine 1.04 (0.66-1.25) mg/dL Est GFR (CKD-EPI)AfAm >90 (>60 ml/min/1.73 sqM) Est GFR (CKD-EPI)NonAf 81 (>60 ml/min/1.73 sqM) Glucose 89 (74-99) mg/dL Calcium 8.8 (8.4-10.2) mg/dL Total Bilirubin 0.5 (0.2-1.3) mg/dL AST 24 (17-59) U/L ALT 27 (21-72) U/L Alkaline Phosphatase 65 (38-126) U/L Total Creatine Kinase 108 (55-170) U/L CK-MB (CK-2) 0.9 (0.0-2.4) ng/mL CK-MB (CK-2) Rel Index 0.8 Troponin I <0.012 (0.000-0.034) ng/mL NT-Pro-B Natriuret Pep pg/mL Total Protein 7.1 (6.3-8.2) g/dL Albumin 4.1 (3.5-5.0) g/dL 07/21/18 07/21/18 Range/Units 00:12 00:12 WBC (3.8-10.6) k/uL RBC (4.30-5.90) m/uL Hgb (13.0-17.5) gm/dL Hct (39.0-53.0) % MCV (80.0-100.0) fL MCH (25.0-35.0) pg MCHC (31.0-37.0) g/dL RDW (11.5-15.5) % Plt Count (150-450) k/uL Neutrophils % % Lymphocytes % % Monocytes % % Eosinophils % % Basophils % % Neutrophils # (1.3-7.7) k/uL Lymphocytes # (1.0-4.8) k/uL Monocytes # (0-1.0) k/uL Eosinophils # (0-0.7) k/uL Basophils # (0-0.2) k/uL PT 9.5 (9.0-12.0) sec INR 0.9 (<1.2) APTT 25.0 (22.0-30.0) sec D-Dimer 0.42 (<0.60) mg/L FEU Sodium (137-145) mmol/L Potassium (3.5-5.1) mmol/L Chloride (98-107) mmol/L Carbon Dioxide (22-30) mmol/L Anion Gap mmol/L BUN (9-20) mg/dL Creatinine (0.66-1.25) mg/dL Est GFR (CKD-EPI)AfAm (>60 ml/min/1.73 sqM) Est GFR (CKD-EPI)NonAf (>60 ml/min/1.73 sqM) Glucose (74-99) mg/dL Calcium (8.4-10.2) mg/dL Total Bilirubin (0.2-1.3) mg/dL AST (17-59) U/L ALT (21-72) U/L Alkaline Phosphatase (38-126) U/L Total Creatine Kinase (55-170) U/L CK-MB (CK-2) (0.0-2.4) ng/mL CK-MB (CK-2) Rel Index Troponin I (0.000-0.034) ng/mL NT-Pro-B Natriuret Pep 319 pg/mL Total Protein (6.3-8.2) g/dL Albumin (3.5-5.0) g/dL Disposition Clinical Impression: Dyspnea Disposition: HOME SELF-CARE Condition: Good Instructions: How Your Lungs Work (ED) Prescriptions: Albuterol Inhaler [Ventolin Hfa Inhaler] 1 - 2 puff INHALATION RT-Q6H PRN #1 inhaler PRN Reason: Shortness Of Breath Is patient prescribed a controlled substance at d/c from ED?: No Referrals: Girma Pino MD [Primary Care Provider] - 1-2 days Time of Disposition: 02:38
[2018-07-21 01:12] LABS: INR 0.9 (<1.2)
[2018-07-21 01:13] LABS: D-Dimer 0.42 mg/L FEU (<0.60); Prothrombin Time 9.5 sec (9.0-12.0)
[2018-07-21 01:23] LABS: Creatine Kinase MB 0.9 ng/mL (0.0-2.4); Troponin I <0.012 ng/mL (0.000-0.034)
[2018-07-21] MEDS ORDERED: IPRATROPIUM 0.5 MG/2.5 ML NEBU INHALATION STA (01:52)
[2018-07-21] MEDS ORDERED: DEXAMETHASONE 4 MG TAB PO STA (01:52)
[2018-07-21] MEDS: ALBUTEROL NEBULIZED 2.5 MG/3 ML INHALATION STA ×3 (02:14→02:16)
[2018-07-21 02:52] VITALS: BP 187/110; PULSE 66; RESP 16; TEMP 98.6
== END 2018-07-21 02:45 | disposition home or self-care (01) ==
LOC: EC 23:35
DX: R06.02 Shortness of breath (principal); R07.89 Other chest pain; J84.10 Pulmonary fibrosis, unspecified; I11.0 Hypertensive heart disease with heart failure; I50.9 Heart failure, unspecified; K21.9 Gastro-esophageal reflux disease without esophagitis; M79.7 Fibromyalgia; J44.9 Chronic obstructive pulmonary disease, unspecified; N40.0 Benign prostatic hyperplasia without lower urinary tract symptoms; M10.9 Gout, unspecified; F17.200 Nicotine dependence, unspecified, uncomplicated; Z21 Asymptomatic human immunodeficiency virus [HIV] infection status; Z79.899 Other long term (current) drug therapy; Z88.1 Allergy status to other antibiotic agents; Z88.5 Allergy status to narcotic agent; Z88.2 Allergy status to sulfonamides; Z88.8 Allergy status to other drugs, medicaments and biological substances; Z95.818 Presence of other cardiac implants and grafts
CPT/HCPCS: 99285; 36415; 94640; 93005; 85379; 83880; 80053; 82550; 82553; 84484; 85025; 85610; 85730; 71046; J8540

== ENCOUNTER 2018-08-24 11:24 | Emergency (ER) | payer MEDICARE, OTHER ==
[2018-08-24 11:32] VITALS: BP 145/80; PULSE 81; RESP 18; TEMP 97.5
[2018-08-24] MEDS ORDERED: PROPARACAINE 0.5% OPHTH DROPS 15 ML BTL BOTH EYES STA (11:50)
--- NOTE | 2018-08-24 11:53 | ED ---
General Adult HPI - General Chief complaint: Eye Problems Stated complaint: Eye Pain Time Seen by Provider: 08/24/18 11:38 Source: patient, RN notes reviewed Mode of arrival: ambulatory Limitations: no limitations - History of Present Illness Initial comments: 58-year-old maleWith a past medical history of heart failure, COPD, fibromyalgia , chronic pain presents to the emergency department for a chief complaint of right-sided eye pain. He states this started this morning when he woke up. Patient states he was streaking last night and is not sure if he scratched the eye. He states he feels that something is in the eye. He denies any visual changes or blurry vision. He also is complaining of right-sided neck pain. He thinks he may have slept on this wrong. Patient states he has degenerative disks in his back and generally has neck pain. He denies any midline neck pain. He denies headache. He denies fevers or chills.Patient has no other complaints at this time including shortness of breath, chest pain, abdominal pain, nausea or vomiting, headache, or visual changes. - Related Data Home Medications Medication Instructions Recorded Confirmed Betamethasone Valerate 1 applic TOPICAL DAILY PRN 09/06/17 05/18/18 [Betamethasone Valerate 0.1%] Cetirizine HCl [Zyrtec] 10 mg PO HS 09/06/17 05/18/18 Diazepam 10 mg PO HS 09/06/17 05/18/18 Doxazosin [Cardura] 1 mg PO HS 09/06/17 05/18/18 Elviteg/Chasidy/Emtric/Tenofo Dis 1 tab PO HS 09/06/17 05/18/18 [Stribild Tablet] traZODone HCL [Desyrel] 200 mg PO HS 09/06/17 05/18/18 Allopurinol [Zyloprim] 100 mg PO BID 11/01/17 05/18/18 Metoprolol Succinate (ER) [Toprol 100 mg PO HS 11/01/17 05/18/18 XL] Salmeterol Xinafoate [Serevent 1 puff INHALATION RT-BID 11/01/17 05/18/18 Diskus] valACYclovir HCL [Valtrex] 500 mg PO Q8HR PRN 11/01/17 05/18/18 Furosemide [Lasix] 40 mg PO DAILY 05/18/18 05/18/18 Isosorbide Mononitrate [Monoket] 10 mg PO TID 05/18/18 05/18/18 Ondansetron [Zofran ODT] 8 mg PO DAILY PRN 05/18/18 05/18/18 Previous Rx's Medication Instructions Recorded hydrALAZINE HCL [Apresoline] 25 mg PO TID #90 tab 01/16/18 Albuterol Inhaler [Ventolin Hfa 1 - 2 puff INHALATION RT-Q6H PRN 07/21/18 Inhaler] #1 inhaler Erythromycin Ophth Oint [Romycin 1 applic RIGHT EYE QID 7 Days gm 08/24/18 Ophth Oint] Allergies Allergy/AdvReac Type Severity Reaction Status Date / Time abacavir [From Ziagen] Allergy Anaphylaxis Verified 08/24/18 11:32 efavirenz [From Sustiva] Allergy Anaphylaxis Verified 08/24/18 11:32 hydrocodone Allergy Rapid Verified 08/24/18 11:32 [From Hysingla ER] Heart Rate levofloxacin Allergy Itching Verified 08/24/18 11:32 sulfamethoxazole Allergy HIGH Verified 08/24/18 11:32 [From Bactrim] CREATININE LEVEL trimethoprim [From Bactrim] Allergy HIGH Verified 08/24/18 11:32 CREATININE morphine AdvReac Itching Verified 08/24/18 11:32 Review of Systems ROS Statement: Those systems with pertinent positive or pertinent negative responses have been documented in the HPI. ROS Other: All systems not noted in ROS Statement are negative. Past Medical History Past Medical History: Asthma, Heart Failure, COPD, Fibromyalgia, GERD/Reflux, Hypertension, Prostate Disorder Additional Past Medical History / Comment(s): Mitral valve disease and a previous mitral valve surgery, possibly repair versus placement, HIV positive, past HTN and recently low blood pressures, BPH, R ankle gout, chronic nausea, bilateral glaucoma, DDD, chronic pain syndrome, chronic low back and bilateral hip pain and occasional cervical pain, DDD, lumbar stenosis/spondylosis, abdominal hernia, previous history of drug overdose. History of Any Multi-Drug Resistant Organisms: None Reported Past Surgical History: Heart Catheterization, Hernia Repair, Orthopedic Surgery Additional Past Surgical History / Comment(s): Mitral valve repair at [facility], R inguinal hernia x2, L inguinal hernia, epidural injections to back, hip injections, RFAs, spinal cord stimulator trial. Past Anesthesia/Blood Transfusion Reactions: No Reported Reaction Past Psychological History: Anxiety, Depression Smoking Status: Current some day smoker Past Alcohol Use History: Occasional Past Drug Use History: None Reported - Past Family History Father Additional Family Medical History / Comment(s): Father was injured at work and of complication during his hospitalization. Mother Additional Family Medical History / Comment(s): Mother is from alcoholism. General Exam Limitations: no limitations General appearance: alert, in no apparent distress Head exam: Present: atraumatic, normocephalic, normal inspection Eye exam: Present: normal appearance, PERRL, EOMI, conjunctival injection ( Erythema noted to the right eye), other (Corneal abrasion noted to right cornea on inferior aspect of eye redness). Absent: scleral icterus, periorbital swelling Pupils: Absent: other (Negative Olivia sign) Expanded Eyelids: Normal Inspection: Bilateral (flipped both eyelids, thoroughly inspected, no FBs) Pupils: Regular, Round: Bilateral, Reactive: Bilateral Sclera/Conjunctival: Injection: Right (sparing limbus) Visual acuity (R) = 20/: 25 Visual acuity (L) = 20/: 25 IOP (R) in mmH IOP (L) in mmH IOP measured with: Tonopen ENT exam: Present: normal exam, mucous membranes moist Neck exam: Present: normal inspection, tenderness (Minimal tenderness noted on the right trapezius of the neck). Absent: meningismus, full ROM (Patient has pain when twisting to the left), lymphadenopathy Respiratory exam: Present: normal lung sounds bilaterally. Absent: respiratory distress, wheezes, rales, rhonchi, stridor Cardiovascular Exam: Present: regular rate, normal rhythm, normal heart sounds. Absent: systolic murmur, diastolic murmur, rubs, gallop, clicks Neurological exam: Present: alert, oriented X3, CN II-XII intact Psychiatric exam: Present: normal affect Course Vital Signs 08/24/18 11:30 Temperature 97.5 F L Pulse Rate 81 Respiratory 18 Rate Blood Pressure 145/80 O2 Sat by Pulse 96 Oximetry Medical Decision Making - Medical Decision Making 58-year-old male presents to the emergency department for irritation. Patient does have corneal abrasion noted on [place] lamp and proparacaine completely relieved pain. No visual changes. Patient will be treated with erythromycin ointment and tetanus shot. Will follow up with ophthalmology. Patient also when he right-sided neck pain, he does have chronic pain and think he slept on it wrong. This is muscular in nature. No midline pain. Disposition Clinical Impression: Corneal abrasion, right Disposition: HOME SELF-CARE Condition: Good Instructions (If sedation given, give patient instructions): Corneal Abrasion ( ED) Additional Instructions: Please use erythromycin ointment in the right eye as directed. Please follow- up with ophthalmology. Return if you have any worsening symptoms. Prescriptions: Erythromycin Ophth Oint [Romycin Ophth Oint] 1 applic RIGHT EYE QID 7 Days gm Is patient prescribed a controlled substance at d/c from ED?: No Referrals: Chandler Pennington MD [STAFF PHYSICIAN] - 1-2 days Arash Perez MD [REFERRING] - 1-2 days Time of Disposition: 12:40
[2018-08-24] MEDS ORDERED: DIPH,PERTUS(ACELL)TETVAC-LF 0.5 ML VIAL IM ONE (12:25)
[2018-08-24] MEDS ORDERED: ERYTHROMYCIN 5 MG/GM OPHTH OINT 3.5 GM TUBE RIGHT EYE STA (12:26)
== END 2018-08-24 12:57 | disposition home or self-care (01) ==
LOC: EC 11:24
DX: S05.01XA Injury of conjunctiva and corneal abrasion without foreign body, right eye, initial encounter (principal); M54.2 Cervicalgia; J44.9 Chronic obstructive pulmonary disease, unspecified; I11.0 Hypertensive heart disease with heart failure; I50.9 Heart failure, unspecified; K21.9 Gastro-esophageal reflux disease without esophagitis; N40.0 Benign prostatic hyperplasia without lower urinary tract symptoms; H40.9 Unspecified glaucoma; F32.9 Major depressive disorder, single episode, unspecified; F41.9 Anxiety disorder, unspecified; F17.200 Nicotine dependence, unspecified, uncomplicated; Z21 Asymptomatic human immunodeficiency virus [HIV] infection status; Z23 Encounter for immunization; Z79.899 Other long term (current) drug therapy; Z88.1 Allergy status to other antibiotic agents; Z88.2 Allergy status to sulfonamides; Z88.5 Allergy status to narcotic agent; Z88.8 Allergy status to other drugs, medicaments and biological substances; Z95.818 Presence of other cardiac implants and grafts
CPT/HCPCS: 90471; 90715; 99283

== ENCOUNTER → 2018-10-29 | Outpatient (CLI) | payer MEDICARE, OTHER ==
[2018-10-29 11:10] LABS: Basophils % (A) 1 %; Eosinophils # (A) 0.2 k/uL (0-0.7); Eosinophils % (A) 4 %; HGB 15.3 gm/dL (13.0-17.5); Lymphocytes # (A) 1.7 k/uL (1.0-4.8); Lymphocytes % (A) 37 %; MCH 31.4 pg (25.0-35.0); MCHC 33.9 g/dL (31.0-37.0); MCV 92.6 fL (80.0-100.0); Mean Platelet Volume 8.3; Monocytes # (A) 0.3 k/uL (0-1.0); Monocytes % (A) 6 %; Neutrophils # (A) 2.2 k/uL (1.3-7.7); Neutrophils % (A) 49 %; Platelet Count 143 k/uL (150-450); RBC 4.86 m/uL (4.30-5.90); RDW 14.2 % (11.5-15.5); WBC 4.5 k/uL (3.8-10.6)
[2018-10-29 16:10] LABS: Albumin 4.7 g/dL (3.80-4.90); Albumin/Globulin Ratio 2.04 (1.60-3.17); Anion Gap 8.2 mmol/L (4.00-12.00); Calcium 9.1 mg/dL (8.7-10.3); Carbon Dioxide 28.8 mmol/L (21.6-31.8); Globulin 2.3 g/dL (1.6-3.3); Potassium 4.5 mmol/L (3.5-5.5); Total Bilirubin 0.3 mg/dL (0.2-1.2)
[2018-10-30 12:20] LABS: T4/T8 Ratio (CD4:CD8) 0.2 (1.0-3.7)
[2018-10-30 13:14] LABS: HIV-1 RNA DETECTED (Not detected); HIV-1 RNA, Quant 237 Copies/mL (<40)
== END ==
LOC: LABWHC1 09:30
PROVIDERS: ATTEND Internal Medicine Infectious Disease
DX: B20 Human immunodeficiency virus [HIV] disease (principal)
CPT/HCPCS: 36415; 80053; 85025; 86360; 87536

== ENCOUNTER 2019-04-17 18:51 | Emergency (ER) | payer MEDICARE, OTHER ==
[2019-04-17 18:59] VITALS: BP 184/101; PULSE 63; RESP 18; TEMP 97.5
[2019-04-17] MEDS ORDERED: KETOROLAC 30 MG/ML 1 ML VIAL IVP STA (19:32)
[2019-04-17] MEDS ORDERED: CYCLOBENZAPRINE 10 MG TAB PO STA (19:32)
[2019-04-17] MEDS ORDERED: LIDOCAINE 5% PATCH TOPICAL STA (19:33)
--- NOTE | 2019-04-17 19:36 | ED ---
General Adult HPI - General Chief complaint: Extremity Injury, Lower Stated complaint: RT leg pain Time Seen by Provider: 04/17/19 19:00 Source: patient Mode of arrival: ambulatory Limitations: no limitations - History of Present Illness Initial comments: Patient is a 58-year-old male with history of degenerative disc disease presenting to the emergency department with a chief complaint of back pain. Patient reports she has been diagnosed with degenerative disc disease many years ago and he has been going to a pain management clinic, he broke his contract with the pain management physician about 2 years ago. Patient reports the pain has been manageable ever since. Patient reports about a month ago he was walking on his back when he slipped and fell on his back. Patient reports he developed pain in the lumbar region which has been somewhat manageable however he woke up today with severe pain that he states is 10 out of 10. Patient reports that he is unable to walk. Patient reports the pain is located in the right paraspinal region without any radiation along the posterior aspect of the leg that would indicate sciatica symptoms. Patient denies any saddle anesthesia, urinary or bowel incontinence. Patient denies taking any medication to alleviate the symptoms. - Related Data Home Medications Medication Instructions Recorded Confirmed Betamethasone Valerate 1 applic TOPICAL DAILY PRN 09/06/17 04/17/19 [Betamethasone Valerate 0.1%] Cetirizine HCl [Zyrtec] 10 mg PO DAILY PRN 09/06/17 04/17/19 Diazepam 10 mg PO BID 09/06/17 04/17/19 Doxazosin [Cardura] 1 mg PO DAILY 09/06/17 04/17/19 Elviteg/Chasidy/Emtric/Tenofo Dis 1 tab PO HS 09/06/17 04/17/19 [Stribild Tablet] traZODone HCL [Desyrel] 200 mg PO HS 09/06/17 04/17/19 Allopurinol [Zyloprim] 100 mg PO BID 11/01/17 04/17/19 Metoprolol Succinate (ER) [Toprol 100 mg PO DAILY 11/01/17 04/17/19 XL] Ondansetron [Zofran ODT] 8 mg PO DAILY PRN 05/18/18 04/17/19 Isosorbide Mononitrate ER [Imdur] 30 mg PO DAILY 04/17/19 04/17/19 Previous Rx's Medication Instructions Recorded hydrALAZINE HCL [Apresoline] 25 mg PO TID #90 tab 01/16/18 Albuterol Inhaler [Ventolin Hfa 1 - 2 puff INHALATION RT-Q6H PRN 07/21/18 Inhaler] #1 inhaler Cyclobenzaprine [Flexeril] 10 mg PO HS #10 tab 04/17/19 Allergies Allergy/AdvReac Type Severity Reaction Status Date / Time abacavir [From Ziagen] Allergy Anaphylaxis Verified 04/17/19 19:13 efavirenz [From Sustiva] Allergy Anaphylaxis Verified 04/17/19 19:13 levofloxacin Allergy Itching Verified 04/17/19 19:13 hydrocodone AdvReac Rapid Verified 04/17/19 19:13 [From Hysingla ER] Heart Rate morphine AdvReac Itching Verified 04/17/19 19:13 sulfamethoxazole AdvReac HIGH Verified 04/17/19 19:13 [From Bactrim] CREATININE LEVEL trimethoprim [From Bactrim] AdvReac HIGH Verified 04/17/19 19:13 CREATININE Review of Systems ROS Statement: Those systems with pertinent positive or pertinent negative responses have been documented in the HPI. ROS Other: All systems not noted in ROS Statement are negative. Past Medical History Past Medical History: Asthma, Heart Failure, Fibromyalgia, GERD/Reflux, Hypertension, Prostate Disorder Additional Past Medical History / Comment(s): Mitral valve disease and a previous mitral valve surgery, possibly repair versus placement, HIV positive, past HTN and recently low blood pressures, BPH, R ankle gout, chronic nausea, bilateral glaucoma, DDD, chronic pain syndrome, chronic low back and bilateral hip pain and occasional cervical pain, DDD, lumbar stenosis/spondylosis, abdominal hernia, previous history of drug overdose. History of Any Multi-Drug Resistant Organisms: None Reported Past Surgical History: Heart Catheterization, Hernia Repair, Orthopedic Surgery Additional Past Surgical History / Comment(s): Mitral valve repair at [facility], R inguinal hernia x2, L inguinal hernia, epidural injections to back, hip injections, RFAs, spinal cord stimulator trial. Past Anesthesia/Blood Transfusion Reactions: No Reported Reaction Past Psychological History: Anxiety, Depression Smoking Status: Current some day smoker Past Alcohol Use History: Occasional Past Drug Use History: Marijuana - Past Family History Father Additional Family Medical History / Comment(s): Father was injured at work and of complication during his hospitalization. Mother Additional Family Medical History / Comment(s): Mother is from alcoholism. General Exam Limitations: no limitations General appearance: alert, in no apparent distress Head exam: Present: atraumatic, normocephalic, normal inspection Eye exam: Present: normal appearance, PERRL, EOMI Pupils: Present: normal accommodation ENT exam: Present: normal exam, mucous membranes moist, normal external ear exam Neck exam: Present: normal inspection, full ROM Respiratory exam: Present: normal lung sounds bilaterally Cardiovascular Exam: Present: regular rate, normal rhythm, normal heart sounds Extremities exam: Present: normal inspection, full ROM, normal capillary refill Back exam: Present: normal inspection, tenderness, paraspinal tenderness (Right paraspinal tenderness in the lumbosacral region). Absent: full ROM (Limited range of motion due to pain), CVA tenderness (R), CVA tenderness (L), vertebral tenderness, rash noted Neurological exam: Present: alert, oriented X3 Psychiatric exam: Present: normal affect, normal mood Skin exam: Present: warm, intact, normal color Course Vital Signs 04/17/19 18:55 Temperature 97.5 F L Pulse Rate 63 Respiratory 18 Rate Blood Pressure 184/101 O2 Sat by Pulse 97 Oximetry Medical Decision Making - Medical Decision Making Patient is a 58-year-old male with history of degenerative disc disease presenting to the emergency department with a chief complaint of low back pain. Patient slipped and fell about a month ago and has since had intermittent pain however over the last day she developed severe pain in the right paraspinal region without any radiation. Physical examination it is indicative of only paraspinal tenderness. Negative leg raise sign. No signs of sciatica. No, equina. Patient given a Lidoderm patch, Toradol Flexeril. On reevaluation patient reports improvement in pain although he still has difficulty ambulating. Patient requested CT imaging due to the fall. The last imaging he had was an MRI from [address] of the lumbar spine showed degenerative disc disease with no changes compared to his last imaging. Patient will be discharged with Flexeril. Patient advised not to drive or operative heavy machinery when taking the medication. Patient advised to lose weight and begin physical therapy. Strict return parameters were thoroughly discussed with patient was understanding and agreeable. Patient advised to follow-up with orthopedics. Case discussed with physician. Disposition Clinical Impression: Lumbar pain Disposition: HOME SELF-CARE Condition: Stable Instructions (If sedation given, give patient instructions): Back Pain (ED) Additional Instructions: Please follow up with orthopedics. Please return to emergency department if symptoms worsen. Please take prescribed medication as directed. Alternate between Tylenol and ibuprofen for pain control. Prescriptions: Cyclobenzaprine [Flexeril] 10 mg PO HS #10 tab Is patient prescribed a controlled substance at d/c from ED?: No Referrals: Girma Pino MD [STAFF PHYSICIAN] - 1-2 days Time of Disposition: 20:31
[2019-04-17] MEDS ORDERED: KETOROLAC 30 MG/ML 1 ML VIAL IM STA (19:45)
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
[2019-04-17] MEDS ORDERED: CYCLOBENZAPRINE 10MG STARTER 3 TAB BTL PO STA (20:28)
== END 2019-04-17 21:00 | disposition home or self-care (01) ==
LOC: EC 18:51
DX: M54.5 Low back pain (principal); M79.604 Pain in right leg; M51.36 Other intervertebral disc degeneration, lumbar region; I11.0 Hypertensive heart disease with heart failure; I50.9 Heart failure, unspecified; N40.0 Benign prostatic hyperplasia without lower urinary tract symptoms; M10.9 Gout, unspecified; F41.9 Anxiety disorder, unspecified; F32.9 Major depressive disorder, single episode, unspecified; F17.200 Nicotine dependence, unspecified, uncomplicated; Z21 Asymptomatic human immunodeficiency virus [HIV] infection status; Z87.19 Personal history of other diseases of the digestive system; Z98.890 Other specified postprocedural states; Z79.899 Other long term (current) drug therapy; Z88.1 Allergy status to other antibiotic agents; Z88.2 Allergy status to sulfonamides; Z88.5 Allergy status to narcotic agent; Z88.8 Allergy status to other drugs, medicaments and biological substances; W01.0XXA Fall on same level from slipping, tripping and stumbling without subsequent striking against object, initial encounter; Y93.01 Activity, walking, marching and hiking
CPT/HCPCS: 72131; 99284; 96372; J1885

== ENCOUNTER → 2020-06-18 | Outpatient (CLI) | payer MEDICARE, OTHER ==
--- NOTE | 2020-06-18 12:20 | CT ---
EXAMINATION TYPE: CT sinus wo con DATE OF EXAM: 06/18/2020 COMPARISON: None HISTORY: Chronic sinusitis. CT DLP: 575.[address] of the paranasal sinuses was performed in the axial and coronal planes. Bone and soft tissue settings are submitted. The paranasal sinuses demonstrate normal aeration and development. Mucosal thickening at the base of the left maxillary sinus. The osteal meatal units are patent bilaterally. The nasal septum is midline. No bony destructive changes are seen within the field of view. IMPRESSION: Mild chronic sinusitis at the base of the left maxillary sinus.
== END | disposition home or self-care (01) ==
LOC: RADCTMAIN 11:46
PROVIDERS: ATTEND Otolaryngology
DX: J32.0 Chronic maxillary sinusitis (principal)
CPT/HCPCS: 70486

== ENCOUNTER → 2020-12-14 | Outpatient (CLI) | payer MEDICARE, OTHER ==
[2020-12-14 11:32] LABS: ALT 33 U/L (4-49); AST 48 U/L (17-59); African American GFR (CKD) 84 (>60 ml/min/1.73 sqM); Albumin 4.2 g/dL (3.5-5.0); Albumin/Globulin Ratio 1.3; Alkaline Phosphatase 101 U/L (38-126); Anion Gap 9 mmol/L; Blood Urea Nitrogen 15 mg/dL (9-20); Carbon Dioxide 32 mmol/L (22-30); Chloride 103 mmol/L (98-107); Globulin 3.3 g/dL; Glucose 124 mg/dL (74-99); Magnesium 1.8 mg/dL (1.6-2.3); Non-African American GFR(CKD) 72 (>60 ml/min/1.73 sqM); Sodium 144 mmol/L (137-145); Total Bilirubin 0.4 mg/dL (0.2-1.3); Total Protein 7.5 g/dL (6.3-8.2)
[2020-12-14 22:35] LABS: Chol/HDL Ratio 4.36; Cholesterol 157 mg/dL (0-200); LDL Cholesterol,Calculated 84.4 mg/dL (0.0-131.0)
== END | disposition home or self-care (01) ==
LOC: LABWHC1 10:52
PROVIDERS: ATTEND Nurse Practitioner Adult Health
DX: I50.32 Chronic diastolic (congestive) heart failure (principal); I11.0 Hypertensive heart disease with heart failure
CPT/HCPCS: 36415; 80053; 80061; 83721; 83735; 83880

== ENCOUNTER 2021-06-20 20:01 | Emergency (ER) | payer MEDICARE, OTHER ==
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
[2021-06-20 20:13] VITALS: BP 105/72; PULSE 69; RESP 20; TEMP 97.9
[2021-06-20 21:04] LABS: Basophils % (A) 1 %; Eosinophils # (A) 0.1 k/uL (0-0.7); Eosinophils % (A) 1 %; HCT 41.7 % (39.0-53.0); HGB 13.9 gm/dL (13.0-17.5); Lymphocytes # (A) 1.8 k/uL (1.0-4.8); Lymphocytes % (A) 46 %; MCH 34.8 pg (25.0-35.0); MCHC 33.4 g/dL (31.0-37.0); MCV 104.1 fL (80.0-100.0); Macrocytosis Moderate; Mean Platelet Volume 8.4; Monocytes # (A) 0.2 k/uL (0-1.0); Monocytes % (A) 6 %; Neutrophils # (A) 1.7 k/uL (1.3-7.7); Neutrophils % (A) 44 %; Platelet Count 159 k/uL (150-450); RBC 4.01 m/uL (4.30-5.90); WBC 3.9 k/uL (3.8-10.6)
[2021-06-20 21:29] LABS: ALT 16 U/L (4-49); AST 36 U/L (17-59); Acetaminophen <10.0 ug/mL; African American GFR (CKD) >90 (>60 ml/min/1.73 sqM); Albumin 3.9 g/dL (3.5-5.0); Alkaline Phosphatase 79 U/L (38-126); Anion Gap 13 mmol/L; Blood Urea Nitrogen 20 mg/dL (9-20); Calcium 8.5 mg/dL (8.4-10.2); Carbon Dioxide 24 mmol/L (22-30); Chloride 104 mmol/L (98-107); Glucose 102 mg/dL (74-99); Non-African American GFR(CKD) >90 (>60 ml/min/1.73 sqM); Potassium 3.7 mmol/L (3.5-5.1); Salicylate <1.0 mg/dL; Sodium 141 mmol/L (137-145); Total Bilirubin 0.4 mg/dL (0.2-1.3); Total Protein 7.2 g/dL (6.3-8.2)
[2021-06-20 21:38] LABS: Amphetamine Screen,Urine Not Detected (NotDetected); Barbiturate Screen,Urine Not Detected (NotDetected); Benzodiazepines Screen,Urine Detected (NotDetected); Cocaine Screen,Urine Not Detected (NotDetected); Methadone Screen, Urine Not Detected (NotDetected); Opiate Screen,Urine Not Detected (NotDetected); Oxycodone Screen, Urine Not Detected (NotDetected); Phencyclidine Screen,Urine Not Detected (NotDetected); Tricyclic Antidepressant,Urine Not Detected (NotDetected); Urn Cannabinoid Scrn Not Detected (NotDetected)
[2021-06-20 21:51] LABS: Alcohol 247 mg/dL
[2021-06-20] MEDS: POTASSIUM CHLORIDE ER 20 MEQ TAB.ER PO STA (23:56)
[2021-06-21] MEDS: POTASSIUM CHLORIDE ER 20 MEQ TAB.ER PO STA (00:44)
== END 2021-06-21 00:53 | disposition left against medical advice (07) ==
LOC: EC 20:01
DX: T43.212A Poisoning by selective serotonin and norepinephrine reuptake inhibitors, intentional self-harm, initial encounter (principal); T42.4X2A Poisoning by benzodiazepines, intentional self-harm, initial encounter; F10.129 Alcohol abuse with intoxication, unspecified; I11.0 Hypertensive heart disease with heart failure; I50.9 Heart failure, unspecified; B20 Human immunodeficiency virus [HIV] disease; J45.909 Unspecified asthma, uncomplicated; M79.7 Fibromyalgia; Z88.1 Allergy status to other antibiotic agents; Y90.8 Blood alcohol level of 240 mg/100 ml or more; Z88.8 Allergy status to other drugs, medicaments and biological substances; Z88.5 Allergy status to narcotic agent; Z88.2 Allergy status to sulfonamides; Z79.899 Other long term (current) drug therapy
CPT/HCPCS: 82075; 36415; 93005; 80053; 83735; 85025; 80306; 80143; 80179; 99285; G0480; 80320

== ENCOUNTER 2021-09-06 21:58 | Inpatient (IN) | payer MEDICARE, OTHER ==
--- NOTE | 2021-09-06 22:52 | XR ---
EXAMINATION TYPE: XR chest 2V DATE OF EXAM: 09/06/2021 COMPARISON: 07/21/2018 HISTORY: Difficulty breathing chest pain TECHNIQUE: FINDINGS: There is no heart failure nor confluent pneumonic infiltrate. There are sternal wires. Cost ophrenic angles are clear. Bony thorax is intact. Heart is top normal in size. IMPRESSION: No active cardiopulmonary disease. Borderline cardiomegaly. Heart increased slightly comp ared to the old exam.
[2021-09-06 22:57] LABS: Basophils # (A) 0.1 k/uL (0-0.2); Basophils % (A) 1 %; Eosinophils # (A) 0.1 k/uL (0-0.7); Eosinophils % (A) 1 %; HCT 44.2 % (39.0-53.0); HGB 15.2 gm/dL (13.0-17.5); Lymphocytes # (A) 4.5 k/uL (1.0-4.8); Lymphocytes % (A) 67 %; MCH 34.4 pg (25.0-35.0); MCHC 34.3 g/dL (31.0-37.0); MCV 100.2 fL (80.0-100.0); Mean Platelet Volume 8.1; Monocytes # (A) 0.3 k/uL (0-1.0); Monocytes % (A) 4 %; Neutrophils # (A) 1.7 k/uL (1.3-7.7); Neutrophils % (A) 25 %; Platelet Count 145 k/uL (150-450); RBC 4.41 m/uL (4.30-5.90); RDW 13.7 % (11.5-15.5); WBC 6.7 k/uL (3.8-10.6)
[2021-09-06 23:10] LABS: ALT 23 U/L (4-49); AST 51 U/L (17-59); African American GFR (CKD) >90 (>60 ml/min/1.73 sqM); Albumin 4.3 g/dL (3.5-5.0); Alkaline Phosphatase 96 U/L (38-126); Anion Gap 11 mmol/L; Blood Urea Nitrogen 20 mg/dL (9-20); Calcium 8.4 mg/dL (8.4-10.2); Carbon Dioxide 29 mmol/L (22-30); Chloride 104 mmol/L (98-107); Glucose 114 mg/dL (74-99); Magnesium 1.8 mg/dL (1.6-2.3); Non-African American GFR(CKD) >90 (>60 ml/min/1.73 sqM); Potassium 4.3 mmol/L (3.5-5.1); Sodium 144 mmol/L (137-145); Total Bilirubin 0.7 mg/dL (0.2-1.3); Total Protein 7.8 g/dL (6.3-8.2)
[2021-09-06 23:13] LABS: Partial Thromboplastin Time 26.4 sec (22.0-30.0); Prothrombin Time 10.7 sec (9.0-12.0)
[2021-09-07] MEDS ORDERED: LORazepam 2 MG/ML INJ IV STA (00:17)
[2021-09-07] MEDS ORDERED: HYDROcodone/APAP 5-325MG 1 EACH TAB PO STA (00:17)
--- NOTE | 2021-09-07 01:47 | CT ---
EXAMINATION TYPE: CT chest angio for PE DATE OF EXAM: 09/07/2021 COMPARISON: 05/18/2018 HISTORY: R/O PE CT DLP: 525.40 mGycm Automated exposure control for dose reduction was used. CONTRAST: Performed with IV Contrast, patient injected with 70 mL of Isovue 370. Images obtained from the thoracic inlet to the diaphragm with IV contrast. There are Three-D postprocessed images. There is no mediastinal adenopathy. Thoracic aorta is intact. There is no aneurysm or dissection hear t size is normal. There is no pericardial effusion. There is mild subsegmental atelectasis and interstitial infiltrate left lower lobe. The thoracic spin e is intact. There are sternal wires. There is no thoracic compression fracture. There is no evidence of filling defect in the pulmonary arteries. IMPRESSION: No evidence of pulmonary embolism. Mild interstitial infiltrate and subsegmental atelectasis left erin g base.
[2021-09-07] MEDS ORDERED: LORazepam 2 MG/ML INJ IV PRN ×2 (02:50)
[2021-09-07] MEDS ORDERED: NITROGLYCERIN SL TABS 0.4 MG TAB SUBLINGUAL PRN (02:55)
--- NOTE | 2021-09-07 03:02 | ED ---
Chest Pain HPI - General Chief Complaint: Chest Pain Stated Complaint: chest pain, SOB, no feeling in hands Time Seen by Provider: 09/07/21 00:04 Source: patient Mode of arrival: wheelchair Limitations: no limitations - History of Present Illness Initial Comments: This patient is a 61-year-old man who presents with a constellation of symptoms is been going on since Sunday. The patient states he has been having palpitations, chest discomfort, dyspnea, and tingling to the bilateral hands. MD Complaint: chest pain -: days(s) Onset: during rest Pain Location: substernal Pain Radiation: none Severity: moderate Quality: tightness Consistency: constant Improves With: nothing Worsens With: nothing Anginal Symptoms: nausea, dyspnea Treatments Prior to Arrival: none - Related Data Home Medications Medication Instructions Recorded Confirmed Betamethasone Valerate 1 applic TOPICAL DAILY PRN 09/06/17 04/17/19 [Betamethasone Valerate 0.1%] Cetirizine HCl [Zyrtec] 10 mg PO DAILY PRN 09/06/17 04/17/19 Doxazosin [Cardura] 1 mg PO DAILY 09/06/17 04/17/19 Elviteg/Chasidy/Emtric/Tenofo Dis 1 tab PO HS 09/06/17 04/17/19 [Stribild Tablet] diazePAM 10 mg PO BID 09/06/17 04/17/19 traZODone HCL [Desyrel] 200 mg PO HS 09/06/17 04/17/19 Metoprolol Succinate (ER) [Toprol 100 mg PO DAILY 11/01/17 04/17/19 XL] allopurinoL [Zyloprim] 100 mg PO BID 11/01/17 04/17/19 Ondansetron [Zofran ODT] 8 mg PO DAILY PRN 05/18/18 04/17/19 Isosorbide Mononitrate ER [Imdur] 30 mg PO DAILY 04/17/19 04/17/19 Previous Rx's Medication Instructions Recorded hydrALAZINE HCL [Apresoline] 25 mg PO TID #90 tab 01/16/18 Albuterol Inhaler (Mhu) [Ventolin 1 - 2 puff INHALATION RT-Q6H PRN 07/21/18 Hfa Inhaler] #1 inhaler Cyclobenzaprine [Flexeril] 10 mg PO HS #10 tab 04/17/19 Allergies Allergy/AdvReac Type Severity Reaction Status Date / Time abacavir [From Ziagen] Allergy Anaphylaxis Verified 09/06/21 22:06 efavirenz [From Sustiva] Allergy Anaphylaxis Verified 09/06/21 22:06 levofloxacin Allergy Itching Verified 09/06/21 22:06 hydrocodone AdvReac Rapid Verified 09/06/21 22:06 [From Hysingla ER] Heart Rate morphine AdvReac Itching Verified 09/06/21 22:06 sulfamethoxazole AdvReac HIGH Verified 09/06/21 22:06 [From Bactrim] CREATININE LEVEL trimethoprim [From Bactrim] AdvReac HIGH Verified 09/06/21 22:06 CREATININE Review of Systems ROS Statement: Those systems with pertinent positive or pertinent negative responses have been documented in the HPI. ROS Other: All systems not noted in ROS Statement are negative. Constitutional: Denies: fever, chills Respiratory: Reports: dyspnea. Denies: cough, wheezes, hemoptysis Cardiovascular: Reports: chest pain, palpitations. Denies: orthopnea, edema, syncope Gastrointestinal: Reports: nausea. Denies: abdominal pain, vomiting, diarrhea Genitourinary: Denies: dysuria, hematuria Musculoskeletal: Denies: back pain Skin: Denies: rash Neurological: Reports: numbness. Denies: headache, weakness, paresthesias Psychiatric: Reports: anxiety EKG Findings - EKG Results: EKG: interpreted by ERMD, sinus rhythm (With some couplet beats), normal axis, normal QRS, normal ST/T Past Medical History Past Medical History: Asthma, Heart Failure, Fibromyalgia, GERD/Reflux, Hypertension, Prostate Disorder Additional Past Medical History / Comment(s): Mitral valve disease and a previous mitral valve surgery, possibly repair versus placement, HIV positive, past HTN and recently low blood pressures, BPH, R ankle gout, chronic nausea, bilateral glaucoma, DDD, chronic pain syndrome, chronic low back and bilateral hip pain and occasional cervical pain, DDD, lumbar stenosis/spondylosis, abdominal hernia, previous history of drug overdose. History of Any Multi-Drug Resistant Organisms: None Reported Past Surgical History: Heart Catheterization, Hernia Repair, Orthopedic Surgery Additional Past Surgical History / Comment(s): Mitral valve repair at [facility], R inguinal hernia x2, L inguinal hernia, epidural injections to back, hip injections, RFAs, spinal cord stimulator trial. Past Anesthesia/Blood Transfusion Reactions: No Reported Reaction Past Psychological History: Anxiety, Depression Smoking Status: Former smoker Past Alcohol Use History: Occasional Past Drug Use History: Marijuana - Past Family History Father Additional Family Medical History / Comment(s): Father was injured at work and of complication during his hospitalization. Mother Additional Family Medical History / Comment(s): Mother is from alcoholism. General Exam Limitations: no limitations General appearance: alert, appears intoxicated, anxious Head exam: Present: atraumatic, normocephalic Eye exam: Present: normal appearance. Absent: scleral icterus, conjunctival injection ENT exam: Present: mucous membranes dry Neck exam: Present: normal inspection Respiratory exam: Present: normal lung sounds bilaterally. Absent: respiratory distress, wheezes, rales, rhonchi, stridor Cardiovascular Exam: Present: regular rate, normal rhythm, normal heart sounds. Absent: systolic murmur, diastolic murmur, rubs, gallop GI/Abdominal exam: Present: soft. Absent: distended, tenderness, guarding, rebound, rigid, mass, pulsatile mass Extremities exam: Present: normal inspection, normal capillary refill. Absent: pedal edema, calf tenderness Back exam: Present: normal inspection Neurological exam: Present: alert Psychiatric exam: Present: anxious Skin exam: Present: warm, dry, intact, normal color. Absent: rash Course Vital Signs 09/06/21 22:03 Temperature 97 F L Pulse Rate 77 Respiratory 24 Rate Blood Pressure 172/123 O2 Sat by Pulse 97 Oximetry Procedures - [place] Protocol (Time Out) Nurse: Girma Eric Disposition Clinical Impression: Chest pain, Alcohol intoxication, Hypertension Disposition: ADMITTED IP TO THIS HOSP Condition: Fair Is patient prescribed a controlled substance at d/c from ED?: No Referrals: Berry Coon MD [Primary Care Provider] - 1-2 days
[2021-09-07] MEDS: ONDANSETRON 4 MG/2 ML VIAL IVP PRN ×2 (03:20→13:50)
[2021-09-07] MEDS: LORazepam 2 MG/ML INJ IV PRN ×4 (03:21→13:54)
[2021-09-07] MEDS: hydrALAZINE HCL 25 MG TAB PO SCH ×2 (06:15→09:23)
[2021-09-07] MEDS ORDERED: METOPROLOL TARTRATE 50 MG TAB PO STA (06:59)
[2021-09-07] MEDS ORDERED: METOPROLOL SUCCINATE (ER) 50 MG TAB.ER.24H PO STA (07:00)
--- NOTE | 2021-09-07 10:03 | P.CRDCN ---
History of Present Illness Consult reason: chest pain Past Medical History Past Medical History: Asthma, Heart Failure, Fibromyalgia, GERD/Reflux, Hypertension, Prostate Disorder Additional Past Medical History / Comment(s): Mitral valve disease and a previous mitral valve surgery, possibly repair versus placement, HIV positive, past HTN and recently low blood pressures, BPH, R ankle gout, chronic nausea, bilateral glaucoma, DDD, chronic pain syndrome, chronic low back and bilateral hip pain and occasional cervical pain, DDD, lumbar stenosis/spondylosis, abdominal hernia, previous history of drug overdose. History of Any Multi-Drug Resistant Organisms: None Reported Past Surgical History: Heart Catheterization, Hernia Repair, Orthopedic Surgery Additional Past Surgical History / Comment(s): Mitral valve repair at [facility], R inguinal hernia x2, L inguinal hernia, epidural injections to back, hip injections, RFAs, spinal cord stimulator trial. Past Anesthesia/Blood Transfusion Reactions: No Reported Reaction Past Psychological History: Anxiety, Depression Smoking Status: Former smoker Past Alcohol Use History: Occasional Past Drug Use History: Marijuana - Past Family History Father Additional Family Medical History / Comment(s): Father was injured at work and of complication during his hospitalization. Mother Additional Family Medical History / Comment(s): Mother is from alcoholism. Medications and Allergies Home Medications Medication Instructions Recorded Confirmed Type Metoprolol Succinate (ER) [Toprol 100 mg PO DAILY 11/01/17 09/07/21 History XL] Ondansetron [Zofran ODT] 8 mg PO DAILY PRN 05/18/18 09/07/21 History Isosorbide Mononitrate ER [Imdur] 30 mg PO DAILY 04/17/19 09/07/21 History Albuterol Inhaler [Ventolin Hfa 2 puff INHALATION RT-Q4H PRN 09/07/21 09/07/21 History Inhaler] Allopurinol [Zyloprim] 300 mg PO DAILY 09/07/21 09/07/21 History Aspirin EC [Ecotrin Low Dose] 81 mg PO DAILY 09/07/21 09/07/21 History Bictegrav/Emtricit/Tenofov Ala 1 tab PO DAILY 09/07/21 09/07/21 History [Biktarvy 50-200-25 mg Tablet] Bumetanide [Bumex] 1 mg PO DAILY 09/07/21 09/07/21 History Colchicine 0.6 mg PO DAILY PRN 09/07/21 09/07/21 History Doxazosin [Cardura] 4 mg PO DAILY 09/07/21 09/07/21 History Escitalopram [Lexapro] 20 mg PO DAILY 09/07/21 09/07/21 History Levothyroxine Sodium [Synthroid] 50 mcg PO DAILY 09/07/21 09/07/21 History Loperamide [Imodium] 2 - 4 mg PO DAILY 09/07/21 09/07/21 History Precobix 800/150mg 1 tab PO DAILY 09/07/21 09/07/21 History Vascepa 1gm 2 gm PO BID 09/07/21 09/07/21 History diphenhydrAMINE [Benadryl] 25 mg PO HS 09/07/21 09/07/21 History hydrALAZINE HCL 50 mg PO TID 09/07/21 09/07/21 History Allergies Allergy/AdvReac Type Severity Reaction Status Date / Time abacavir [From Ziagen] Allergy Anaphylaxis Verified 09/07/21 07:12 efavirenz [From Sustiva] Allergy Anaphylaxis Verified 09/07/21 07:12 levofloxacin Allergy Itching Verified 09/07/21 07:12 hydrocodone AdvReac Rapid Verified 09/07/21 07:12 [From Hysingla ER] Heart Rate morphine AdvReac Itching Verified 09/07/21 07:12 sulfamethoxazole AdvReac HIGH Verified 09/07/21 07:12 [From Bactrim] CREATININE LEVEL trimethoprim [From Bactrim] AdvReac HIGH Verified 09/07/21 07:12 CREATININE Physical Exam Vitals: Vital Signs Temp Pulse Resp BP Pulse Ox 09/07/21 09:26 78 18 130/99 96 09/07/21 06:55 87 18 192/131 95 09/07/21 05:00 77 24 158/87 94 L 09/07/21 04:00 75 22 155/87 93 L 09/07/21 03:00 80 18 160/110 96 09/06/21 22:03 97 F L 77 24 172/123 97 Intake and Output 09/06/21 09/07/21 09/07/21 22:59 06:59 14:59 Other: Weight 104.326 kg Results 09/06/21 22:50 09/06/21 22:50 Cardiac Enzymes 09/06/21 09/06/21 09/07/21 Range/Units 22:50 22:50 03:41 AST 51 (17-59) U/L Troponin I <0.012 0.021 (0.000-0.034) ng/mL 09/07/21 Range/Units 06:16 AST (17-59) U/L Troponin I 0.019 (0.000-0.034) ng/mL Coagulation 09/06/21 Range/Units 22:50 PT 10.7 (9.0-12.0) sec APTT 26.4 (22.0-30.0) sec CBC 09/06/21 Range/Units 22:50 WBC 6.7 (3.8-10.6) k/uL RBC 4.41 (4.30-5.90) m/uL Hgb 15.2 (13.0-17.5) gm/dL Hct 44.2 (39.0-53.0) % Plt Count 145 L (150-450) k/uL Comprehensive Metabolic Panel 09/06/21 Range/Units 22:50 Sodium 144 (137-145) mmol/L Potassium 4.3 (3.5-5.1) mmol/L Chloride 104 (98-107) mmol/L Carbon Dioxide 29 (22-30) mmol/L BUN 20 (9-20) mg/dL Creatinine 0.85 (0.66-1.25) mg/dL Glucose 114 H (74-99) mg/dL Calcium 8.4 (8.4-10.2) mg/dL AST 51 (17-59) U/L ALT 23 (4-49) U/L Alkaline Phosphatase 96 (38-126) U/L Total Protein 7.8 (6.3-8.2) g/dL Albumin 4.3 (3.5-5.0) g/dL Current Medications Generic Name Dose Route Start Last Admin Trade Name Freq PRN Reason Stop Dose Admin Aspirin 325 mg 09/08/21 09:00 Aspirin 325 Mg Tab PO DAILY ALEX Hydralazine HCl 25 mg 09/07/21 06:05 09/07/21 09:23 Hydralazine Hcl 25 Mg Tab PO 25 mg TID ALEX Administration Lorazepam 1 mg 09/07/21 02:50 09/07/21 07:09 Lorazepam 2 Mg/Ml Inj IV 1 mg Q2HR PRN Administration CIWA 8 or 9 Lorazepam 1 mg 09/07/21 02:50 09/07/21 06:01 Lorazepam 2 Mg/Ml Inj IV 1 mg Q1HR PRN Administration CIWA 10 to 15 Lorazepam 2 mg 09/07/21 02:50 Lorazepam 2 Mg/Ml Inj IV 09/09/21 02:50 Q10M PRN CIWA 16 or higher Nitroglycerin 0.4 mg 09/07/21 02:55 Nitroglycerin Sl Tabs 0.4 Mg Tab SUBLINGUAL Q5M PRN Chest Pain Ondansetron HCl 4 mg 09/07/21 03:05 09/07/21 03:20 Ondansetron 4 Mg/2 Ml Vial IVP 4 mg Q6HR PRN Administration Nausea And Vomiting Thiamine HCl 100 mg 09/07/21 17:30 Thiamine 100 Mg Tab PO BID-W/MEALS ALEX Intake and Output 09/06/21 09/07/21 09/07/21 22:59 06:59 14:59 Other: Weight 104.326 kg 09/06/21 22:50 09/06/21 22:50
--- NOTE | 2021-09-07 10:06 | P.CRDCN ---
History of Present Illness History of present illness: 61-year-old gentleman with history of HIV mitral regurgitation status post mitral valve repair at [facility] will continue his ago and hypertension comes to Hospital with alcohol intoxication atypical chest pain musculoskeletal pain and palpitations. At the time of my evaluation patient is comfortable at rest and is free of significant symptoms his monitor shows that he is in sinus rhythm with frequent PVCs. He is hemodynamically stable. 3 sets of cardiac enzymes are negative. In EKG shows sinus rhythm with PVCs and nonspecific ST-T wave changes. Patient chest discomfort is atypical probably musculoskeletal could be related to EtOH abuse. I will obtain a 2-D echo to assess his LV function the mitral valve. Continue patient on current medications especially the beta trish given the PVCs Constitutional: Denies chills. Denies fever. Eyes: Denies blurred vision. Denies pain. Ears, nose, mouth and throat: Denies headache. Denies sore throat. Cardiovascular: Complaints of chest pain. Denies shortness of breath. Respiratory: Denies cough. Gastrointestinal: Denies abdominal pain. Denies diarrhea. Denies nausea. Denies vomiting. Musculoskeletal: Denies myalgias. Complains of musculoskeletal pain Integumentary: Denies pruritus. Denies rash. Neurological: Denies numbness. Denies weakness. Psychiatric: Denies anxiety. Denies depression. Endocrine: Denies fatigue. Denies weight change. Genitourinary: Denies burning, hematuria, frequency of urination. Hematological: No anemia or excess bleeding. General: The patient is awake and alert, in no distress, and does not appear acutely ill. Skin: Skin is warm and dry and no rashes or lesions are noted. Eye: Pupils are equal, round and reactive to light, extra-ocular movements are intact; there is normal conjunctiva bilaterally. Ears, nose, mouth and throat: There are moist mucous membranes and no oral lesions. Neck: The neck is supple, there is no tenderness or JVD. Cardiovascular: Irregular secondary to PVCs No murmur, rub or gallop is appreciated. Respiratory: Lungs are clear to auscultation, respirations are non-labored, breath sounds are equal. Gastrointestinal: Soft, non-distended, non-tender abdomen without masses or organomegaly noted. There is no rebound or guarding present. Bowel sounds are unremarkable. Back: There is no tenderness to palpation in the midline. There is no obvious deformity. Musculoskeletal: Normal ROM, no tenderness, There is no pedal edema. There is no calf tenderness or swelling. Extremities: No edema. Vascular: Femoral pulse is normal. Posterior tibial pulses are normal .Dorsalis pedis is palpable. Neurological: CN II-XII intact. There are no obvious motor or sensory deficits. Speech is normal. Psychiatric: Cooperative, appropriate mood & affect, normal judgment. Assessment and plan: Mitral regurgitation status post mitral valve repair Atypical chest pain PVCs EtOH intoxication History of hypertension Check an echocardiogram continue beta blockers Past Medical History Past Medical History: Asthma, Heart Failure, Fibromyalgia, GERD/Reflux, Hypertension, Prostate Disorder Additional Past Medical History / Comment(s): Mitral valve disease and a previous mitral valve surgery, possibly repair versus placement, HIV positive, past HTN and recently low blood pressures, BPH, R ankle gout, chronic nausea, bilateral glaucoma, DDD, chronic pain syndrome, chronic low back and bilateral hip pain and occasional cervical pain, DDD, lumbar stenosis/spondylosis, abdo clinton hernia, previous history of drug overdose. History of Any Multi-Drug Resistant Organisms: None Reported Past Surgical History: Heart Catheterization, Hernia Repair, Orthopedic Surgery Additional Past Surgical History / Comment(s): Mitral valve repair at [facility], R inguinal hernia x2, L inguinal hernia, epidural injections to back, hip injections, RFAs, spinal cord stimulator trial. Past Anesthesia/Blood Transfusion Reactions: No Reported Reaction Past Psychological History: Anxiety, Depression Smoking Status: Former smoker Past Alcohol Use History: Occasional Past Drug Use History: Marijuana - Past Family History Father Additional Family Medical History / Comment(s): Father was injured at work and of complication during his hospitalization. Mother Additional Family Medical History / Comment(s): Mother is from alcoholism. Medications and Allergies Home Medications Medication Instructions Recorded Confirmed Type Metoprolol Succinate (ER) [Toprol 100 mg PO DAILY 11/01/17 09/07/21 History XL] Ondansetron [Zofran ODT] 8 mg PO DAILY PRN 05/18/18 09/07/21 History Isosorbide Mononitrate ER [Imdur] 30 mg PO DAILY 04/17/19 09/07/21 History Albuterol Inhaler [Ventolin Hfa 2 puff INHALATION RT-Q4H PRN 09/07/21 09/07/21 History Inhaler] Allopurinol [Zyloprim] 300 mg PO DAILY 09/07/21 09/07/21 History Aspirin EC [Ecotrin Low Dose] 81 mg PO DAILY 09/07/21 09/07/21 History Bictegrav/Emtricit/Tenofov Ala 1 tab PO DAILY 09/07/21 09/07/21 History [Biktarvy 50-200-25 mg Tablet] Bumetanide [Bumex] 1 mg PO DAILY 09/07/21 09/07/21 History Colchicine 0.6 mg PO DAILY PRN 09/07/21 09/07/21 History Doxazosin [Cardura] 4 mg PO DAILY 09/07/21 09/07/21 History Escitalopram [Lexapro] 20 mg PO DAILY 09/07/21 09/07/21 History Levothyroxine Sodium [Synthroid] 50 mcg PO DAILY 09/07/21 09/07/21 History Loperamide [Imodium] 2 - 4 mg PO DAILY 09/07/21 09/07/21 History Precobix 800/150mg 1 tab PO DAILY 09/07/21 09/07/21 History Vascepa 1gm 2 gm PO BID 09/07/21 09/07/21 History diphenhydrAMINE [Benadryl] 25 mg PO HS 09/07/21 09/07/21 History hydrALAZINE HCL 50 mg PO TID 09/07/21 09/07/21 History Allergies Allergy/AdvReac Type Severity Reaction Status Date / Time abacavir [From Ziagen] Allergy Anaphylaxis Verified 09/07/21 07:12 efavirenz [From Sustiva] Allergy Anaphylaxis Verified 09/07/21 07:12 levofloxacin Allergy Itching Verified 09/07/21 07:12 hydrocodone AdvReac Rapid Verified 09/07/21 07:12 [From Hysingla ER] Heart Rate morphine AdvReac Itching Verified 09/07/21 07:12 sulfamethoxazole AdvReac HIGH Verified 09/07/21 07:12 [From Bactrim] CREATININE LEVEL trimethoprim [From Bactrim] AdvReac HIGH Verified 09/07/21 07:12 CREATININE Physical Exam Vitals: Vital Signs Temp Pulse Resp BP Pulse Ox 09/07/21 09:26 78 18 130/99 96 03/09/22 06:55 87 18 192/131 95 09/07/21 05:00 77 24 158/87 94 L 09/07/21 04:00 75 22 155/87 93 L 09/07/21 03:00 80 18 160/110 96 09/06/21 22:03 97 F L 77 24 172/123 97 Intake and Output 09/06/21 09/07/21 09/07/21 22:59 06:59 14:59 Other: Weight 104.326 kg Results 09/06/21 22:50 09/06/21 22:50 Cardiac Enzymes 09/06/21 09/06/21 09/07/21 Range/Units 22:50 22:50 03:41 AST 51 (17-59) U/L Troponin I <0.012 0.021 (0.000-0.034) ng/mL 09/07/21 Range/Units 06:16 AST (17-59) U/L Troponin I 0.019 (0.000-0.034) ng/mL Coagulation 09/06/21 Range/Units 22:50 PT 10.7 (9.0-12.0) sec APTT 26.4 (22.0-30.0) sec CBC 09/06/21 Range/Units 22:50 WBC 6.7 (3.8-10.6) k/uL RBC 4.41 (4.30-5.90) m/uL Hgb 15.2 (13.0-17.5) gm/dL Hct 44.2 (39.0-53.0) % Plt Count 145 L (150-450) k/uL Comprehensive Metabolic Panel 09/06/21 Range/Units 22:50 Sodium 144 (137-145) mmol/L Potassium 4.3 (3.5-5.1) mmol/L Chloride 104 (98-107) mmol/L Carbon Dioxide 29 (22-30) mmol/L BUN 20 (9-20) mg/dL Creatinine 0.85 (0.66-1.25) mg/dL Glucose 114 H (74-99) mg/dL Calcium 8.4 (8.4-10.2) mg/dL AST 51 (17-59) U/L ALT 23 (4-49) U/L Alkaline Phosphatase 96 (38-126) U/L Total Protein 7.8 (6.3-8.2) g/dL Albumin 4.3 (3.5-5.0) g/dL Current Medications Generic Name Dose Route Start Last Admin Trade Name Freq PRN Reason Stop Dose Admin Aspirin 325 mg 09/08/21 09:00 Aspirin 325 Mg Tab PO DAILY ALEX Hydralazine HCl 25 mg 09/07/21 06:05 09/07/21 09:23 Hydralazine Hcl 25 Mg Tab PO 25 mg TID ALEX Administration Lorazepam 1 mg 09/07/21 02:50 09/07/21 07:09 Lorazepam 2 Mg/Ml Inj IV 1 mg Q2HR PRN Administration CIWA 8 or 9 Lorazepam 1 mg 09/07/21 02:50 09/07/21 06:01 Lorazepam 2 Mg/Ml Inj IV 1 mg Q1HR PRN Administration CIWA 10 to 15 Lorazepam 2 mg 09/07/21 02:50 Lorazepam 2 Mg/Ml Inj IV 09/09/21 02:50 Q10M PRN CIWA 16 or higher Nitroglycerin 0.4 mg 09/07/21 02:55 Nitroglycerin Sl Tabs 0.4 Mg Tab SUBLINGUAL Q5M PRN Chest Pain Ondansetron HCl 4 mg 09/07/21 03:05 09/07/21 03:20 Ondansetron 4 Mg/2 Ml Vial IVP 4 mg Q6HR PRN Administration Nausea And Vomiting Thiamine HCl 100 mg 09/07/21 17:30 Thiamine 100 Mg Tab PO BID-W/MEALS ALEX Intake and Output 09/06/21 09/07/21 09/07/21 22:59 06:59 14:59 Other: Weight 104.326 kg 09/06/21 22:50 09/06/21 22:50
--- NOTE | 2021-09-07 10:46 | ECHOF ---
Referral Reason:chest pain MEASUREMENTS -------- HEIGHT: 170.2 cm WEIGHT: 104.3 kg BP: 130/115 RVIDd: 3.8 cm (< 3.3) IVSd: 1.3 cm (0.6 - 1.1) LVIDd: 4.8 cm (3.9 - 5.3) LVPWd: 1.3 cm (0.6 - 1.1) IVSs: 1.6 cm LVIDs: 4.0 cm LVPWs: 1.7 cm LA Diam: 3.7 cm (2.7 - 3.8) LAESV Index (A-L): 33.47 ml/m Ao Diam: 4.6 cm (2.0 - 3.7) AV Cusp: 2.5 cm (1.5 - 2.6) MV EXCURSION: 21.432 mm (> 18.000) MV EF SLOPE: 67 mm/s (70 - 150) EPSS: 0.9 cm FINDINGS -------- This was a technically adequate study. The left ventricular size is normal. There is mild concentric left ventricular hypertrophy. Overa ll left ventricular systolic function is moderately impaired with, an EF between 35 - 40 %. The right ventricle is mild to moderately enlarged. LA is midly dilated 29-33ml/m2. The right atrium is normal in size. Interatrial and interventricular septum intact. There is mild aortic valve sclerosis. Trace to mild aortic regurgitation. Mild mitral annular calcification present. There is trace mitral regurgitation. The peak and elizabeth n MV gradients are 19.10mmHg 5.19mmHg as measured by doppler. MV Repair. The tricuspid valve appears structurally normal. Unable to estimate RVSP due to inadequate TR jet s pectral doppler profile. The pulmonic valve was not well visualized. The aortic root is dilated measuring 4.6cm. IVC Not well visulized. There is no pericardial effusion. CONCLUSIONS -------- 1. The left ventricular size is normal. 2. There is mild concentric left ventricular hypertrophy. 3. Overall left ventricular systolic function is moderately impaired with, an EF between 35 - 40 %. 4. The right ventricle is mild to moderately enlarged. 5. LA is midly dilated 29-33ml/m2. 6. There is mild aortic valve sclerosis. 7. Trace to mild aortic regurgitation. 8. Mild mitral annular calcification present. 9. There is trace mitral regurgitation. 10. The peak and mean MV gradients are 19.10mmHg 5.19mmHg as measured by doppler. 11. MV Repair. 12. The aortic root is dilated measuring 4.6cm. 13. There is no pericardial effusion. OUTSOLE SPLICER: Hansa Grady RDCS
[2021-09-07] MEDS ORDERED: FOLIC ACID 1 MG TAB PO SCH (12:45)
[2021-09-07] MEDS ORDERED: MULTIVITAMINS, THERA 1 EACH TAB PO SCH (13:00)
[2021-09-07] MEDS ORDERED: 1: THIAMINE 100 MG, FOLIC ACID 1 MG in 0.9% NACL WITH KCL 20 MEQ/L 1,000 ML 2: 0.9% NAC IVPB SCH (13:30)
--- NOTE | 2021-09-07 13:45 | P.HPIM ---
History of Present Illness H&P Date: 09/07/21 Chief Complaint: Intoxication, chest pain History and Physical and Discharge Summary: This is a 61-year-old male with past medical history of hypertension, HIV, [facility]gastroesophageal reflux disease, benign prostatic hypertrophy, fibromyalgia -chronic pain, CHF, alcoholic abuse, anxiety, depression, history of drug overdose and multiple other medical history presented to the ER with complaints of midsternal chest pain accompanied by nausea and some shortness of breath at rest since Sunday or Sunday. Patient was also intoxicated on arrival.MCV 100.2 , serum alcohol 262 .Patient reports hes been "bored". Denies cough, congestion, emesis, abdominal pain, diaphoresis, lightheadedness, dizziness or focal deficits. Electrolytes within normal limits.Serial enzymes negative, EKG reporting sinus rhythm with PVCs. Ec ho reported moderately impaired LV function, EF 35-40%, aortic root 4.6 cm. d- dimer 1.09, chest CTA reported no evidence of PE, mild interstitial infiltrate and subsegmental atelectasis left lung base. Chest x-ray reported no active cardiopulmonary disease. Evaluated by cardiology with recommendations noted and appreciated. Maintained on beta trish,CIWA protocol. Patient currently denies chest pain, palpitations or shortness of breath. No shakiness, no diaphoresis. Alert and oriented 3. Review of Systems ROS Statement: Those systems with pertinent positive or pertinent negative responses have been documented in the HPI. ROS Other: All systems not noted in ROS Statement are negative. Past Medical History Past Medical History: Asthma, Heart Failure, Fibromyalgia, GERD/Reflux, Hypertension, Prostate Disorder Additional Past Medical History / Comment(s): Mitral valve disease and a previous mitral valve surgery, possibly repair versus placement, HIV positive, past HTN and recently low blood pressures, BPH, R ankle gout, chronic nausea, bilateral glaucoma, DDD, chronic pain syndrome, chronic low back and bilateral hip pain and occasional cervical pain, DDD, lumbar stenosis/spondylosis, abdominal hernia, previous history of drug overdose. History of Any Multi-Drug Resistant Organisms: None Reported Past Surgical History: Heart Catheterization, Hernia Repair, Orthopedic Surgery Additional Past Surgical History / Comment(s): Mitral valve repair at [facility], R inguinal hernia x2, L inguinal hernia, epidural injections to back, hip injections, RFAs, spinal cord stimulator trial. Past Anesthesia/Blood Transfusion Reactions: No Reported Reaction Past Psychological History: Anxiety, Depression Smoking Status: Former smoker Past Alcohol Use History: Occasional Past Drug Use History: Marijuana - Past Family History Father Additional Family Medical History / Comment(s): Father was injured at work and of complication during his hospitalization. Mother Additional Family Medical History / Comment(s): Mother is from alcoholism. Medications and Allergies Home Medications Medication Instructions Recorded Confirmed Type Metoprolol Succinate (ER) [Toprol 100 mg PO DAILY 11/01/17 09/07/21 History XL] Ondansetron [Zofran ODT] 8 mg PO DAILY PRN 05/18/18 09/07/21 History Isosorbide Mononitrate ER [Imdur] 30 mg PO DAILY 04/17/19 09/07/21 History Albuterol Inhaler [Ventolin Hfa 2 puff INHALATION RT-Q4H PRN 09/07/21 09/07/21 History Inhaler] Allopurinol [Zyloprim] 300 mg PO DAILY 09/07/21 09/07/21 History Aspirin EC [Ecotrin Low Dose] 81 mg PO DAILY 09/07/21 09/07/21 History Bictegrav/Emtricit/Tenofov Ala 1 tab PO DAILY 09/07/21 09/07/21 History [Biktarvy 50-200-25 mg Tablet] Bumetanide [BUMEX] 1 mg PO DAILY 09/07/21 09/07/21 History Colchicine 0.6 mg PO DAILY PRN 09/07/21 09/07/21 History Doxazosin [Cardura] 4 mg PO DAILY 09/07/21 09/07/21 History Escitalopram [Lexapro] 20 mg PO DAILY 09/07/21 09/07/21 History Folic Acid 1 mg PO DAILY tab 09/07/21 Rx Levothyroxine Sodium [Synthroid] 50 mcg PO DAILY 09/07/21 09/07/21 History Loperamide [Imodium] 2 - 4 mg PO DAILY 09/07/21 09/07/21 History Precobix 800/150mg 1 tab PO DAILY 09/07/21 09/07/21 History Thiamine [Vitamin B-1] 100 mg PO DAILY tab 09/07/21 Rx Vascepa 1gm 2 gm PO BID 09/07/21 09/07/21 History diphenhydrAMINE [Benadryl] 25 mg PO HS 09/07/21 09/07/21 History hydrALAZINE HCL 50 mg PO TID 09/07/21 09/07/21 History Allergies Allergy/AdvReac Type Severity Reaction Status Date / Time abacavir [From Ziagen] Allergy Anaphylaxis Verified 09/07/21 07:12 efavirenz [From Sustiva] Allergy Anaphylaxis Verified 09/07/21 07:12 levofloxacin Allergy Itching Verified 09/07/21 07:12 hydrocodone AdvReac Rapid Verified 09/07/21 07:12 [From Hysingla ER] Heart Rate morphine AdvReac Itching Verified 09/07/21 07:12 sulfamethoxazole AdvReac HIGH Verified 09/07/21 07:12 [From Bactrim] CREATININE LEVEL trimethoprim [From Bactrim] AdvReac HIGH Verified 09/07/21 07:12 CREATININE Physical Exam Vitals: Vital Signs Temp Pulse Resp BP Pulse Ox 09/07/21 09:26 78 18 130/99 96 09/07/21 06:55 87 18 192/131 95 09/07/21 05:00 77 24 158/87 94 L 09/07/21 04:00 75 22 155/87 93 L 09/07/21 03:00 80 18 160/110 96 09/06/21 22:03 97 F L 77 24 172/123 97 Intake and Output 09/06/21 09/07/21 09/07/21 22:59 06:59 14:59 Other: Weight 104.326 kg PHYSICAL EXAM: VITAL SIGNS: As above GENERAL: Sitting up in bed, in no acute distress HEENT: Conjunctivae normal. eyes normal. NECK: No JVD. No thyroid enlargement. No LNs CARDIOVASCULAR: S1, S2 regular. No murmur RESPIRATION: Breath sounds diminished in the bases. No rhonchi or crackles. No bronchial breathing. ABDOMEN: Soft, obese -distended, nontender . No guarding. no masses palpable. No ascites, No hepatosplenomegaly.Bowel sounds heard. LEGS: No edema. no swelling PSYCHIATRY: Alert and oriented X3, mood and affect normal. NERVOUS SYSTEM: Cranial N 2-12 grossly normal.No focal deficits. Strength and sensation grossly intact. Skin: Warm and dry, no rash Results CBC & Chem 7: 09/06/21 22:50 09/06/21 22:50 Labs: Abnormal Lab Results - Last 24 Hours (Table) 09/06/21 09/06/21 09/07/21 Range/Units 22:50 22:50 00:00 MCV 100.2 H (80.0-100.0) fL Plt Count 145 L (150-450) k/uL D-Dimer 1.09 H (<0.60) mg/L FEU Glucose 114 H (74-99) mg/dL Serum Alcohol mg/dL 09/07/21 Range/Units 00:34 MCV (80.0-100.0) fL Plt Count (150-450) k/uL D-Dimer (<0.60) mg/L FEU Glucose (74-99) mg/dL Serum Alcohol 262 H* mg/dL Assessment and Plan Assessment: Alcohol intoxication, serum alcohol 262 Chest pain, muscle skeletal, atypical with acute coronary syndrome ruled out per cardiology Mitral regurgitation with History of mitral valve repair Chronic CHF with diastolic dysfunction, preserved LV function COPD, stable Chronic intermittent asthma, stable Hypertension HIV BPH esophageal reflux disease Chronic pain syndrome Fibromyalgia Anxiety, depression Aortic root 4.6 cm, further monitoring outpatient Plan: Continue on current medication regime ,monitoring and symptomatic treatment. CIWA protocol. Banana bag ordered. Patient will be discharged home today in a stable condition with guarded prognosis pending completion of banana bag, final DC recommendations and clearance per cardiology. Social work consulted to provide list of EtOH rehab/resources. The impression and plan of care has been dictated as directed. : I performed a history and examination of this patient, discussed the same with the dictator. I agree with the dictator's note ,documented as a scribe. Any additional findings or plans will be noted.
[2021-09-07] MEDS ORDERED: AZITHROMYCIN 500 MG in SODIUM CHLORIDE 0.9% 250 ML IVPB SCH (14:30)
[2021-09-07 15:53] VITALS: BP 149/95; PULSE 76; RESP 20; TEMP 98.3
[2021-09-07] MEDS ORDERED: THIAMINE 100 MG TAB PO SCH (17:30)
[2021-09-08] MEDS ORDERED: ASPIRIN 325 MG TAB PO SCH (09:00)
== END 2021-09-07 15:50 | disposition home or self-care (01) | DRG 897 ==
LOC: EC 21:58 → 3SCARD 09-07 02:55
PROVIDERS: ADMIT Family Medicine; ATTEND Family Medicine
PROC: HZ2ZZZZ Detoxification Services for Substance Abuse Treatment (ICD-10-PCS; principal; 2021-09-07)
DX: F10.129 Alcohol abuse with intoxication, unspecified (principal); I50.32 Chronic diastolic (congestive) heart failure; J98.11 Atelectasis; Y90.8 Blood alcohol level of 240 mg/100 ml or more; F32.A Depression, unspecified; F41.9 Anxiety disorder, unspecified; G89.4 Chronic pain syndrome; I11.0 Hypertensive heart disease with heart failure; M10.9 Gout, unspecified; R07.89 Other chest pain; M48.061 Spinal stenosis, lumbar region without neurogenic claudication; M47.896 Other spondylosis, lumbar region; I49.3 Ventricular premature depolarization; I08.0 Rheumatic disorders of both mitral and aortic valves; J44.9 Chronic obstructive pulmonary disease, unspecified; J45.20 Mild intermittent asthma, uncomplicated; K21.9 Gastro-esophageal reflux disease without esophagitis; M79.7 Fibromyalgia; N40.0 Benign prostatic hyperplasia without lower urinary tract symptoms; Z21 Asymptomatic human immunodeficiency virus [HIV] infection status; Z79.82 Long term (current) use of aspirin; Z79.890 Hormone replacement therapy; Z79.899 Other long term (current) drug therapy; Z87.891 Personal history of nicotine dependence; Z95.2 Presence of prosthetic heart valve; Z88.8 Allergy status to other drugs, medicaments and biological substances; Z88.1 Allergy status to other antibiotic agents; Z88.5 Allergy status to narcotic agent; Z86.79 Personal history of other diseases of the circulatory system; Z86.59 Personal history of other mental and behavioral disorders; Z96.82 Presence of neurostimulator; Z87.19 Personal history of other diseases of the digestive system; Z88.2 Allergy status to sulfonamides
CPT/HCPCS: 36415; 71046; 71275; 80053; 80320; 83735; 84484; 85025; 85379; 85610; 85730; 93005; 93306; 96374; 96375; 96376; 99285

== ENCOUNTER 2022-02-06 00:50 | Emergency (ER) | payer MEDICARE, OTHER ==
[2022-02-06 01:04] VITALS: BP 142/77; PULSE 78; RESP 19; TEMP 98
--- NOTE | 2022-02-06 01:26 | ED ---
General Adult HPI - General Chief complaint: Anxiety Stated complaint: anxiety Time Seen by Provider: 02/06/22 01:05 Source: patient Mode of arrival: ambulatory - History of Present Illness Initial comments: Dictation was produced using [employer]ink[employer] dictation software. please excuse any grammatical, word or spelling errors. Chief Complaint: 61-year-old male presents to emergency department for nonstop crying History of Present Illness: 89-year-old male he has past medical history of depression and anxiety. Patient states that he has not been able to stop crying for the past few days. Patient denies any depression currently. Denies any suicidal or homicidal ideation. Denies any visual auditory hallucinations. Patient takes 0.25 mg of Xanax at night to help sleep and control his anxiety. Patient requesting EPS evaluation. States that he feels like his body is going to explode. Patient has multiple comorbidities and takes multiple medications. Patient presents with his at the bedside. The ROS documented in this emergency department record has been reviewed and confirmed by me. Those systems with pertinent positive or negative responses have been documented in the HPI. All other systems are other negative and/or noncontributory. PHYSICAL EXAM: General Impression: Alert and oriented x3, not in acute distress HEENT: Normocephalic atraumatic, extra-ocular movements intact, pupils equal and reactive to light bilaterally, mucous membranes moist. Cardiovascular: Heart regular rate and rhythm Chest: Able to complete full sentences, no retractions, no tachypnea Abdomen: abdomen soft, non-tender, non-distended, no organomegaly Musculoskeletal: Pulses present and equal in all extremities, no peripheral edema Motor: no focal deficits noted Neurological: CN II-XII grossly intact, no focal motor or sensory deficits noted Skin: Intact with no visualized rashes Psych: Tearful ED course: 61-year-old male presents to the emergency department for inability to stop crying. Patient requesting to speak with EPS. Vital signs upon arrival are within acceptable limits. Patient's breath alcohol test was elevated. Patient was cleared to be seen at 4:40 AM however at 3:00 AM they requested that he did not want to wait any longer and preferred to be discharge. He has a at the bedside and will take him home. Patient advised follow up with his primary care doctor for outpatient management of his symptoms. - Related Data Home Medications Medication Instructions Recorded Confirmed Metoprolol Succinate (ER) [Toprol 100 mg PO DAILY 11/01/17 09/07/21 XL] Ondansetron [Zofran ODT] 8 mg PO DAILY PRN 05/18/18 09/07/21 Isosorbide Mononitrate ER [Imdur] 30 mg PO DAILY 04/17/19 09/07/21 Albuterol Inhaler [Ventolin Hfa 2 puff INHALATION RT-Q4H PRN 09/07/21 09/07/21 Inhaler] Aspirin EC [Ecotrin Low Dose] 81 mg PO DAILY 09/07/21 09/07/21 Bictegrav/Emtricit/Tenofov Ala 1 tab PO DAILY 09/07/21 09/07/21 [Biktarvy 50-200-25 mg Tablet] Bumetanide [BUMEX] 1 mg PO DAILY 09/07/21 09/07/21 Colchicine 0.6 mg PO DAILY PRN 09/07/21 09/07/21 Doxazosin [Cardura] 4 mg PO DAILY 09/07/21 09/07/21 Escitalopram [Lexapro] 20 mg PO DAILY 09/07/21 09/07/21 Levothyroxine Sodium [Synthroid] 50 mcg PO DAILY 09/07/21 09/07/21 Loperamide [Imodium] 2 - 4 mg PO DAILY 09/07/21 09/07/21 Precobix 800/150mg 1 tab PO DAILY 09/07/21 09/07/21 Vascepa 1gm 2 gm PO BID 09/07/21 09/07/21 allopurinoL [Zyloprim] 300 mg PO DAILY 09/07/21 09/07/21 diphenhydrAMINE [Benadryl] 25 mg PO HS 09/07/21 09/07/21 hydrALAZINE HCL 50 mg PO TID 09/07/21 09/07/21 Previous Rx's Medication Instructions Recorded Folic Acid 1 mg PO DAILY tab 09/07/21 Thiamine [Vitamin B-1] 100 mg PO DAILY tab 09/07/21 cefUROXime axetiL [Ceftin] 500 mg PO BID 5 Days #10 tab 09/07/21 lisinopriL [Zestril] 5 mg PO DAILY 30 Days #30 tab 09/07/21 Allergies Allergy/AdvReac Type Severity Reaction Status Date / Time abacavir [From Ziagen] Allergy Anaphylaxis Verified 02/06/22 01:03 efavirenz [From Sustiva] Allergy Anaphylaxis Verified 02/06/22 01:03 levofloxacin Allergy Itching Verified 02/06/22 01:03 hydrocodone AdvReac Rapid Verified 02/06/22 01:03 [From Hysingla ER] Heart Rate morphine AdvReac Itching Verified 02/06/22 01:03 sulfamethoxazole AdvReac HIGH Verified 02/06/22 01:03 [From Bactrim] CREATININE LEVEL trimethoprim [From Bactrim] AdvReac HIGH Verified 02/06/22 01:03 CREATININE Review of Systems ROS Statement: Those systems with pertinent positive or pertinent negative responses have been documented in the HPI. ROS Other: All systems not noted in ROS Statement are negative. Past Medical History Past Medical History: Asthma, Heart Failure, Fibromyalgia, GERD/Reflux, Hypertension, Prostate Disorder Additional Past Medical History / Comment(s): Mitral valve disease and a previous mitral valve surgery, possibly repair versus placement, HIV positive, past HTN and recently low blood pressures, BPH, R ankle gout, chronic nausea, bilateral glaucoma, DDD, chronic pain syndrome, chronic low back and bilateral hip pain and occasional cervical pain, DDD, lumbar stenosis/spondylosis, abdominal hernia, previous history of drug overdose. History of Any Multi-Drug Resistant Organisms: None Reported Past Surgical History: Heart Catheterization, Hernia Repair, Orthopedic Surgery Additional Past Surgical History / Comment(s): Mitral valve repair at [facility], R inguinal hernia x2, L inguinal hernia, epidural injections to back, hip injections, RFAs, spinal cord stimulator trial. Past Anesthesia/Blood Transfusion Reactions: No Reported Reaction Past Psychological History: Anxiety, Depression Smoking Status: Former smoker Past Alcohol Use History: Heavy Past Drug Use History: Marijuana - Past Family History Father Additional Family Medical History / Comment(s): Father was injured at work and of complication during his hospitalization. Mother Additional Family Medical History / Comment(s): Mother is from alcoholism. Course Vital Signs 02/06/22 00:59 Temperature 98 F Pulse Rate 78 Respiratory 19 Rate Blood Pressure 142/77 O2 Sat by Pulse 98 Oximetry Medical Decision Making - Lab Data Result diagrams: 02/06/22 01:47 02/06/22 01:47 Lab Results 02/06/22 02/06/22 Range/Units 01:47 01:47 WBC 5.0 (3.8-10.6) k/uL RBC 4.67 (4.30-5.90) m/uL Hgb 15.3 (13.0-17.5) gm/dL Hct 45.5 (39.0-53.0) % MCV 97.4 (80.0-100.0) fL MCH 32.8 (25.0-35.0) pg MCHC 33.7 (31.0-37.0) g/dL RDW 14.6 (11.5-15.5) % Plt Count 271 (150-450) k/uL MPV 7.7 Neutrophils % 39 % Lymphocytes % 52 % Monocytes % 5 % Eosinophils % 1 % Basophils % 1 % Neutrophils # 1.9 (1.3-7.7) k/uL Lymphocytes # 2.6 (1.0-4.8) k/uL Monocytes # 0.2 (0-1.0) k/uL Eosinophils # 0.1 (0-0.7) k/uL Basophils # 0.0 (0-0.2) k/uL Sodium 150 H (137-145) mmol/L Potassium 4.4 (3.5-5.1) mmol/L Chloride 108 H (98-107) mmol/L Carbon Dioxide 25 (22-30) mmol/L Anion Gap 17 mmol/L BUN 18 (9-20) mg/dL Creatinine 0.95 (0.66-1.25) mg/dL Est GFR (CKD-EPI)AfAm >90 (>60 ml/min/1.73 sqM) Est GFR (CKD-EPI)NonAf 88 (>60 ml/min/1.73 sqM) Glucose 124 H (74-99) mg/dL Calcium 9.2 (8.4-10.2) mg/dL Disposition Clinical Impression: Crying associated with mood Disposition: HOME SELF-CARE Instructions (If sedation given, give patient instructions): Generalized Anxiety Disorder (ED) Is patient prescribed a controlled substance at d/c from ED?: No Referrals: Berry Coon MD [Primary Care Provider] - 1-2 days Time of Disposition: 03:06
[2022-02-06 01:57] LABS: Basophils % (A) 1 %; Eosinophils # (A) 0.1 k/uL (0-0.7); Eosinophils % (A) 1 %; HCT 45.5 % (39.0-53.0); HGB 15.3 gm/dL (13.0-17.5); Lymphocytes # (A) 2.6 k/uL (1.0-4.8); Lymphocytes % (A) 52 %; MCH 32.8 pg (25.0-35.0); MCHC 33.7 g/dL (31.0-37.0); MCV 97.4 fL (80.0-100.0); Mean Platelet Volume 7.7; Monocytes # (A) 0.2 k/uL (0-1.0); Monocytes % (A) 5 %; Neutrophils # (A) 1.9 k/uL (1.3-7.7); Neutrophils % (A) 39 %; Platelet Count 271 k/uL (150-450); RBC 4.67 m/uL (4.30-5.90); RDW 14.6 % (11.5-15.5)
[2022-02-06 02:25] LABS: African American GFR (CKD) >90 (>60 ml/min/1.73 sqM); Anion Gap 17 mmol/L; Blood Urea Nitrogen 18 mg/dL (9-20); Calcium 9.2 mg/dL (8.4-10.2); Carbon Dioxide 25 mmol/L (22-30); Chloride 108 mmol/L (98-107); Glucose 124 mg/dL (74-99); Non-African American GFR(CKD) 88 (>60 ml/min/1.73 sqM); Potassium 4.4 mmol/L (3.5-5.1); Sodium 150 mmol/L (137-145)
== END 2022-02-06 03:10 | disposition home or self-care (01) ==
LOC: EC 00:50
DX: R45.83 Excessive crying of child, adolescent or adult (principal); J45.909 Unspecified asthma, uncomplicated; K21.9 Gastro-esophageal reflux disease without esophagitis; I10 Essential (primary) hypertension; F32.A Depression, unspecified; Z87.891 Personal history of nicotine dependence; F12.90 Cannabis use, unspecified, uncomplicated; Z88.7 Allergy status to serum and vaccine; Z88.1 Allergy status to other antibiotic agents; Z88.5 Allergy status to narcotic agent; Z88.6 Allergy status to analgesic agent; Z88.2 Allergy status to sulfonamides; Z79.899 Other long term (current) drug therapy; Z79.82 Long term (current) use of aspirin; Z79.51 Long term (current) use of inhaled steroids
CPT/HCPCS: 36415; 80048; 82075; 85025; 99283

== ENCOUNTER 2022-10-09 17:16 | Emergency (ER) | payer MEDICARE, OTHER ==
[2022-10-09 17:20] VITALS: BP 167/69; PULSE 81; RESP 18; TEMP 97.4
[2022-10-09] MEDS ORDERED: HYDROmorphone 1 MG/ML 1 ML SYRINGE IM STA (17:33)
[2022-10-09] MEDS ORDERED: KETOROLAC 15 MG/ML 1 ML VIAL IM STA (17:34)
--- NOTE | 2022-10-09 18:15 | ED ---
General Adult HPI - General Chief complaint: Extremity Injury, Lower Stated complaint: Hip Pain Time Seen by Provider: 10/09/22 17:25 Source: patient, RN notes reviewed Mode of arrival: wheelchair Limitations: no limitations - History of Present Illness Initial comments: 62-year-old male with past medical history presents to the emergency department with a chief complaint of left hip pain. He denies any recent trauma or injury or falls. He has been evaluated for this multiple times. He reports having a CT and x-ray performed at [facility] approximately 1 week ago. He was instructed to take steroids for inflammation and he did not fill the prescription. He reports worsening pain with movement. He has not been taking anything for his symptoms. He denies any fever, chills, numbness, tingling, weakness in the extremity. - Related Data Home Medications Medication Instructions Recorded Confirmed Metoprolol Succinate (ER) [Toprol 100 mg PO DAILY 11/01/17 09/07/22 XL] Ondansetron [Zofran ODT] 8 mg PO DAILY PRN 05/18/18 09/07/22 Isosorbide Mononitrate ER [Imdur] 30 mg PO DAILY 04/17/19 09/07/22 Albuterol Inhaler [Ventolin Hfa 2 puff INHALATION RT-Q4H PRN 09/07/21 09/07/22 Inhaler] Aspirin EC [Ecotrin Low Dose] 81 mg PO DAILY 09/07/21 09/07/22 Bictegrav/Emtricit/Tenofov Ala 1 tab PO DAILY 09/07/21 09/07/22 [Biktarvy 50-200-25 mg Tablet] Bumetanide [BUMEX] 1 mg PO DAILY 09/07/21 09/07/22 Colchicine 0.6 mg PO BID 09/07/21 09/07/22 Loperamide [Imodium] 2 - 4 mg PO QID PRN MDD 4 capsules 09/07/21 09/07/22 allopurinoL [Zyloprim] 300 mg PO DAILY 09/07/21 09/07/22 diphenhydrAMINE [Benadryl] 25 - 50 mg PO HS 09/07/21 09/07/22 hydrALAZINE HCL 50 mg PO TID 09/07/21 09/07/22 ALPRAZolam [Xanax] 0.25 mg PO Q6H PRN 09/07/22 09/07/22 Albuterol Nebulized [Ventolin 2.5 mg INHALATION RT-Q6H PRN 09/07/22 09/07/22 Nebulized] Darunavir/Cobicistat [Prezcobix 1 tab PO DAILY 09/07/22 09/07/22 800 mg-150 mg Tablet] Levothyroxine Sodium [Synthroid] 75 mcg PO DAILY 09/07/22 09/07/22 diphenhydrAMINE [Benadryl] 25 - 50 mg PO TID PRN 09/07/22 09/07/22 oxyCODONE HCL/ACETAMINOPHEN 1 tab PO Q6HR 09/07/22 09/07/22 [Percocet 7.5-325 mg] traZODone HCL [Desyrel] 100 mg PO HS 09/07/22 09/07/22 Previous Rx's Medication Instructions Recorded Ketorolac [Toradol] 10 mg PO Q8HR #15 tab 10/09/22 Allergies Allergy/AdvReac Type Severity Reaction Status Date / Time abacavir [From Ziagen] Allergy Anaphylaxis Verified 02/20/22 11:05 efavirenz [From Sustiva] Allergy Anaphylaxis Verified 02/20/22 11:05 levofloxacin Allergy Itching Verified 02/20/22 11:05 hydrocodone AdvReac Rapid Verified 02/20/22 11:05 [From Hysingla ER] Heart Rate morphine AdvReac Itching Verified 02/20/22 11:05 sulfamethoxazole AdvReac HIGH Verified 02/20/22 11:05 [From Bactrim] CREATININE LEVEL trimethoprim [From Bactrim] AdvReac HIGH Verified 02/20/22 11:05 CREATININE Review of Systems ROS Statement: Those systems with pertinent positive or pertinent negative responses have been documented in the HPI. ROS Other: All systems not noted in ROS Statement are negative. Past Medical History Past Medical History: Asthma, Heart Failure, Fibromyalgia, GERD/Reflux, Hypertension, Prostate Disorder Additional Past Medical History / Comment(s): Mitral valve disease and a previous mitral valve surgery, possibly repair versus placement, HIV positive, past HTN and recently low blood pressures, BPH, R ankle gout, chronic nausea, bilateral glaucoma, DDD, chronic pain syndrome, chronic low back and bilateral hip pain and occasional cervical pain, DDD, lumbar stenosis/spondylosis, abdominal hernia, previous history of drug overdose. History of Any Multi-Drug Resistant Organisms: None Reported Past Surgical History: Heart Catheterization, Hernia Repair, Orthopedic Surgery Additional Past Surgical History / Comment(s): Mitral valve repair at [facility], R inguinal hernia x2, L inguinal hernia, epidural injections to back, hip injections, RFAs, spinal cord stimulator trial. Past Anesthesia/Blood Transfusion Reactions: No Reported Reaction Past Psychological History: Anxiety, Depression, PTSD Smoking Status: Former smoker Past Alcohol Use History: Occasional Past Drug Use History: Marijuana - Past Family History Father Additional Family Medical History / Comment(s): Father was injured at work and of complication during his hospitalization. Mother Additional Family Medical History / Comment(s): Mother is from alcoholism. General Exam Limitations: no limitations General appearance: alert, in no apparent distress Head exam: Present: atraumatic, normocephalic, normal inspection Eye exam: Present: normal appearance, PERRL, EOMI. Absent: scleral icterus, conjunctival injection, periorbital swelling ENT exam: Present: normal exam, mucous membranes moist Neck exam: Present: normal inspection. Absent: tenderness, meningismus, lymphadenopathy Respiratory exam: Present: normal lung sounds bilaterally. Absent: respiratory distress, wheezes, rales, rhonchi, stridor Cardiovascular Exam: Present: regular rate, normal rhythm, normal heart sounds. Absent: systolic murmur, diastolic murmur, rubs, gallop, clicks GI/Abdominal exam: Present: soft, normal bowel sounds. Absent: distended, tenderness, guarding, rebound, rigid Extremities exam: Present: normal inspection, full ROM, normal capillary refill. Absent: tenderness, pedal edema, joint swelling, calf tenderness Back exam: Present: normal inspection Neurological exam: Present: alert, oriented X3, CN II-XII intact Psychiatric exam: Present: normal affect, normal mood Skin exam: Present: warm, dry, intact, normal color. Absent: rash Course Vital Signs 10/09/22 17:17 Temperature 97.4 F L Pulse Rate 81 Respiratory 18 Rate Blood Pressure 167/69 O2 Sat by Pulse 95 Oximetry Medical Decision Making - Medical Decision Making Was pt. sent in by a medical professional or institution (, PA, BALLET PROFESSOR, urgent care, hospital, or [facility]...) When possible be specific @ -[No] Did you speak to anyone other than the patient for history (EMS, parent, family, police, friend...)? What history was obtained from this source @ -[No] Did you review nursing and triage notes (agree or disagree)? Why? @ -[I reviewed and agree with nursing and triage notes] Were old charts reviewed (outside hosp., previous admission, EMS record, old EKG, old radiological studies, urgent care reports/EKG's, [facility] records)? Report findings @ -[No old charts were reviewed] Differential Diagnosis (chest pain, altered mental status, abdominal pain women, abdominal pain men, vaginal bleeding, weakness, fever, dyspnea, syncope, headache, dizziness, GI bleed, back pain, seizure, CVA, palpatations, mental health, musculoskeletal)? @ -[not applicable] EKG interpreted by me (3pts min.). @ -[As above] X-rays interpreted by me (1pt min.). @ -[None done] CT interpreted by me (1pt min.). @ -[None done] U/S interpreted by me (1pt. min.). @ -[None done] What testing was considered but not performed or refused? (CT, X-rays, U/S, labs)? Why? @ -[None] What meds were considered but not given or refused? Why? @ -x-rays were considered however which is essentially was negative and he denies any recent injury or trauma Did you discuss the management of the patient with other professionals (professionals i.e. , PA, BALLET PROFESSOR, lab, RT, psych nurse, child protective services social worker, outsole caser, teacher, business development officer, case aide)? Give summary @ -[No] Was smoking cessation discussed for >3mins.? @ -[No] Was critical care preformed (if so, how long)? @ -[No] Were there social determinants of health that impacted care today? How? (Homelessness, low income, unemployed, alcoholism, drug addiction, transportation, low edu. Level, literacy, decrease access to med. care, detention, rehab)? @ -[No] Was there de-escalation of care discussed even if they declined (Discuss DNR or withdrawal of care, Hospice)? DNR status @ -[No] What co-morbidities impacted this encounter? (DM, HTN, Smoking, COPD, CAD, Cancer, CVA, ARF, Chemo, Hep., AIDS, mental health diagnosis, sleep apnea, morbid obesity)? @ -[None] Was patient admitted / discharged? Hospital course, mention meds given and route, prescriptions, significant lab abnormalities, going to OR and other pertinent info. @ -8-year-old male presents emergency Department chief complaint left hip pain. Patient had a thorough history and physical exam performed on the ED . Physical exam is essentially unremarkable. Patient was given Dilaudid and Toradol was symptomatically relief. He was discharged in stable condition medical's follow up with. With PCP.. Case discussed with Dr. Reddy [facility] who agrees with plan of care. Undiagnosed new problem with uncertain prognosis? @ -[No] Drug Therapy requiring intensive monitoring for toxicity (Heparin, Nitro, Insulin, Cardizem)? @ -[No] Were any procedures done? @ -[No] Diagnosis/symptom? @ -left hip pain Acute, or Chronic, or Acute on Chronic? @ -acute Uncomplicated (without systemic symptoms) or Complicated (systemic symptoms)? @ -uncomplicated Side effects of treatment? @ -[No] Exacerbation, Progression, or Severe Exacerbation? @ -[No] Poses a threat to life or bodily function? How? (Chest pain, [place], MA, pneumonia, PE, COPD, DKA, ARF, appy, cholecystitis, CVA, Diverticulitis, Homicidal, Suicidal, threat to staff... and all critical care pts) @ -low likelihood Disposition Clinical Impression: Hip pain Disposition: HOME SELF-CARE Condition: Stable Additional Instructions: These return to the nearest emergency department if symptoms worsen or persist Prescriptions: Ketorolac [Toradol] 10 mg PO Q8HR #15 tab Is patient prescribed a controlled substance at d/c from ED?: No Referrals: Berry Coon MD [Primary Care Provider] - 1-2 days George Matias MD [Medical Doctor] - 1-2 days Ricky Bernstein MD [STAFF PHYSICIAN] - 1-2 days Time of Disposition: 18:14
== END 2022-10-09 18:30 | disposition home or self-care (01) ==
LOC: EC 17:16
DX: M25.552 Pain in left hip (principal); I11.0 Hypertensive heart disease with heart failure; I50.9 Heart failure, unspecified; J45.909 Unspecified asthma, uncomplicated; K21.9 Gastro-esophageal reflux disease without esophagitis; Z79.82 Long term (current) use of aspirin; Z79.899 Other long term (current) drug therapy; Z87.891 Personal history of nicotine dependence; Z88.1 Allergy status to other antibiotic agents; Z88.2 Allergy status to sulfonamides; Z88.5 Allergy status to narcotic agent; Z88.8 Allergy status to other drugs, medicaments and biological substances
CPT/HCPCS: 99283; 96372 ×2; J1170; J1885

== ENCOUNTER 2023-07-25 08:01 | Emergency (ER) | payer MEDICARE, OTHER ==
[2023-07-25 08:12] VITALS: BP 150/86; PULSE 76; RESP 20; TEMP 98.1
[2023-07-25] MEDS ORDERED: ONDANSETRON 4 MG/2 ML VIAL IVP STA (08:18)
[2023-07-25] MEDS ORDERED: HYDROmorphone 0.5 MG/0.5 ML SYRINGE IVP STA (08:18)
[2023-07-25] MEDS ORDERED: KETOROLAC 15 MG/ML 1 ML VIAL IVP STA (08:18)
[2023-07-25] MEDS ORDERED: DEXAMETHASONE SOD PHOSPHATE 10 MG/ML 1 ML VIAL IVP STA (08:19)
--- NOTE | 2023-07-25 08:20 | ED ---
Extremity Problem HPI - General Chief complaint: Extremity Problem,Nontraumatic Stated complaint: Hip Pain Time Seen by Provider: 07/25/23 08:15 Source: patient, EMS, RN notes reviewed Mode of arrival: EMS Limitations: no limitations - History of Present Illness Initial comments: 62-year-old male presents emergency department with chief complaint of left hip pain. This is a chronic ongoing issue states he is scheduled for surgery he is supposed to have hip replacement but it was pushed back secondary to cardiac clearance. Patient states has been going to [facility] for pain relief. Patient states he has been receiving Toradol. Patient denies any falls patient offers no other complaints. - Related Data Home Medications Medication Instructions Recorded Confirmed Metoprolol Succinate (ER) [Toprol 100 mg PO DAILY 11/01/17 09/07/22 XL] Ondansetron [Zofran ODT] 8 mg PO DAILY PRN 05/18/18 09/07/22 Isosorbide Mononitrate ER [Imdur] 30 mg PO DAILY 04/17/19 09/07/22 Albuterol Inhaler [Ventolin Hfa 2 puff INHALATION RT-Q4H PRN 09/07/21 09/07/22 Inhaler] Aspirin EC [Ecotrin Low Dose] 81 mg PO DAILY 09/07/21 09/07/22 Bictegrav/Emtricit/Tenofov Ala 1 tab PO DAILY 09/07/21 09/07/22 [Biktarvy 50-200-25 mg Tablet] Bumetanide [BUMEX] 1 mg PO DAILY 09/07/21 09/07/22 Colchicine 0.6 mg PO BID 09/07/21 09/07/22 Loperamide [Imodium] 2 - 4 mg PO QID PRN MDD 4 capsules 09/07/21 09/07/22 allopurinoL [Zyloprim] 300 mg PO DAILY 09/07/21 09/07/22 diphenhydrAMINE [Benadryl] 25 - 50 mg PO HS 09/07/21 09/07/22 hydrALAZINE HCL 50 mg PO TID 09/07/21 09/07/22 ALPRAZolam [Xanax] 0.25 mg PO Q6H PRN 09/07/22 09/07/22 Albuterol Nebulized [Ventolin 2.5 mg INHALATION RT-Q6H PRN 09/07/22 09/07/22 Nebulized] Darunavir/Cobicistat [Prezcobix 1 tab PO DAILY 09/07/22 09/07/22 800 mg-150 mg Tablet] Levothyroxine Sodium [Synthroid] 75 mcg PO DAILY 09/07/22 09/07/22 diphenhydrAMINE [Benadryl] 25 - 50 mg PO TID PRN 09/07/22 09/07/22 oxyCODONE HCL/ACETAMINOPHEN 1 tab PO Q6HR 09/07/22 09/07/22 [Percocet 7.5-325 mg] traZODone HCL [Desyrel] 100 mg PO HS 09/07/22 09/07/22 Previous Rx's Medication Instructions Recorded Ketorolac [Toradol] 10 mg PO Q8HR #15 tab 10/09/22 Allergies Allergy/AdvReac Type Severity Reaction Status Date / Time abacavir [From Ziagen] Allergy Anaphylaxis Verified 07/25/23 08:06 efavirenz [From Sustiva] Allergy Anaphylaxis Verified 07/25/23 08:06 levofloxacin Allergy Itching Verified 07/25/23 08:06 hydrocodone AdvReac Rapid Verified 07/25/23 08:06 [From Hysingla ER] Heart Rate morphine AdvReac Itching Verified 07/25/23 08:06 sulfamethoxazole AdvReac HIGH Verified 07/25/23 08:06 [From Bactrim] CREATININE LEVEL trimethoprim [From Bactrim] AdvReac HIGH Verified 07/25/23 08:06 CREATININE Review of Systems ROS Statement: Those systems with pertinent positive or pertinent negative responses have been documented in the HPI. ROS Other: All systems not noted in ROS Statement are negative. Past Medical History Past Medical History: Asthma, Heart Failure, Fibromyalgia, GERD/Reflux, Hypertension, Prostate Disorder Additional Past Medical History / Comment(s): Mitral valve disease and a previous mitral valve surgery, possibly repair versus placement, HIV positive, past HTN and recently low blood pressures, BPH, R ankle gout, chronic nausea, bilateral glaucoma, DDD, chronic pain syndrome, chronic low back and bilateral hip pain and occasional cervical pain, DDD, lumbar stenosis/spondylosis, abdominal hernia, previous history of drug overdose. History of Any Multi-Drug Resistant Organisms: None Reported Past Surgical History: Heart Catheterization, Hernia Repair, Orthopedic Surgery Additional Past Surgical History / Comment(s): Mitral valve repair at [facility], R inguinal hernia x2, L inguinal hernia, epidural injections to back, hip injections, RFAs, spinal cord stimulator trial. Past Anesthesia/Blood Transfusion Reactions: No Reported Reaction Past Psychological History: Anxiety, Depression, PTSD Smoking Status: Former smoker Past Alcohol Use History: Occasional Past Drug Use History: Marijuana - Past Family History Father Additional Family Medical History / Comment(s): Father was injured at work and of complication during his hospitalization. Mother Additional Family Medical History / Comment(s): Mother is from alcoholism. General Exam Limitations: no limitations General appearance: alert, in no apparent distress Head exam: Present: atraumatic, normocephalic, normal inspection Respiratory exam: Present: normal lung sounds bilaterally. Absent: respiratory distress, wheezes, rales, rhonchi, stridor Cardiovascular Exam: Present: regular rate, normal rhythm, normal heart sounds. Absent: systolic murmur, diastolic murmur, rubs, gallop, clicks GI/Abdominal exam: Present: soft, normal bowel sounds. Absent: distended, tenderness, guarding, rebound, rigid Extremities exam: Present: normal inspection, full ROM, normal capillary refill, other (Pain with movement in the left hip, neurovascular intact). Absent: tenderness, pedal edema, joint swelling, calf tenderness Course Vital Signs 07/25/23 08:04 Temperature 98.1 F Pulse Rate 76 Respiratory 20 Rate Blood Pressure 150/86 O2 Sat by Pulse 99 Oximetry Medical Decision Making - Medical Decision Making Was pt. sent in by a medical professional or institution (BONNIE Rai, NEUROLOGICAL SURGERY TEACHER, urgent care, hospital, or shelter...) When possible be specific @ -No Did you speak to anyone other than the patient for history (EMS, parent, family, police, friend...)? What history was obtained from this source @ -No Did you review nursing and triage notes (agree or disagree)? Why? @ -I reviewed and agree with nursing and triage notes Were old charts reviewed (outside hosp., previous admission, EMS record, old EKG, old radiological studies, urgent care reports/EKG's, shelter records)? Report findings @ -No old charts were reviewed Differential Diagnosis (chest pain, altered mental status, abdominal pain women, abdominal pain men, vaginal bleeding, weakness, fever, dyspnea, syncope, headache, dizziness, GI bleed, back pain, seizure, CVA, palpatations, mental health, musculoskeletal)? @ -[Chronic hip pain, osteoarthritis EKG interpreted by me (3pts min.). @ -None X-rays interpreted by me (1pt min.). @ -None CT interpreted by me (1pt min.). @ -[None done U/S interpreted by me (1pt. min.). @ -None done What testing was considered but not performed or refused? (CT, X-rays, U/S, labs)? Why? @ -Consider x-ray though patient had no new injuries. What meds were considered but not given or refused? Why? @ -None Did you discuss the management of the patient with other professionals (professionals i.e. , PA, NEUROLOGICAL SURGERY TEACHER, lab, RT, psych nurse, social media marketer, geographic information system surveyor, teacher, corporate responsibility officer, leather case finisher)? Give summary @ -No Was smoking cessation discussed for >3mins.? @ -No Was critical care preformed (if so, how long)? @ -No Were there social determinants of health that impacted care today? How? (Homelessness, low income, unemployed, alcoholism, drug addiction, transportation, low edu. Level, literacy, decrease access to med. care, [facility], rehab)? @ -No Was there de-escalation of care discussed even if they declined (Discuss DNR or withdrawal of care, Hospice)? DNR status @ -No What co-morbidities impacted this encounter? (DM, HTN, Smoking, COPD, CAD, Cancer, CVA, ARF, Chemo, Hep., AIDS, mental health diagnosis, sleep apnea, morbid obesity)? @ -None Was patient admitted / discharged? Hospital course, mention meds given and route, prescriptions, significant lab abnormalities, going to OR and other pertinent info. @ -Discharged patient provided analgesics. Patient has follow-up with [facility] today for clearance for surgical intervention return plans discussed Undiagnosed new problem with uncertain prognosis? @ -No Drug Therapy requiring intensive monitoring for toxicity (Heparin, Nitro, Insulin, Cardizem)? @ -No Were any procedures done? @ -No Diagnosis/symptom? @ -[Left hip pain Acute, or Chronic, or Acute on Chronic? @ -Acute on chronic Uncomplicated (without systemic symptoms) or Complicated (systemic symptoms)? @ -Uncomplicated Side effects of treatment? @ -[No Exacerbation, Progression, or Severe Exacerbation? @ -No Poses a threat to life or bodily function? How? (Chest pain, [place], [place], pneumonia, PE, COPD, DKA, ARF, appy, cholecystitis, CVA, Diverticulitis, Homicidal, Suicidal, threat to staff... and all critical care pts) @ -No Disposition Clinical Impression: Chronic pain syndrome, Chronic hip pain Disposition: HOME SELF-CARE Condition: Stable Instructions (If sedation given, give patient instructions): Hip Pain (ED) Additional Instructions: Please return to the Emergency Department if symptoms worsen or any other concerns. Is patient prescribed a controlled substance at d/c from ED?: No Referrals: Berry Coon MD [Primary Care Provider] - 1-2 days Joss Morocho DO [Doctor of Osteopathic Medicine] - 1-2 days Time of Disposition: 08:20
[2023-07-25] MEDS ORDERED: ACET/COD 300 MG/30 MG STARTER PACK 6 TAB BTL PO STA (08:22)
== END 2023-07-25 09:30 | disposition home or self-care (01) ==
LOC: EC 08:01
DX: G89.29 Other chronic pain (principal); M25.552 Pain in left hip; J45.909 Unspecified asthma, uncomplicated; I11.0 Hypertensive heart disease with heart failure; I50.9 Heart failure, unspecified; F41.9 Anxiety disorder, unspecified; F32.A Depression, unspecified; F12.90 Cannabis use, unspecified, uncomplicated; Z87.891 Personal history of nicotine dependence; Z88.1 Allergy status to other antibiotic agents; Z88.2 Allergy status to sulfonamides; Z88.5 Allergy status to narcotic agent; Z88.8 Allergy status to other drugs, medicaments and biological substances; Z79.82 Long term (current) use of aspirin; Z79.899 Other long term (current) drug therapy
CPT/HCPCS: 99284; 96374; 96375 ×3; J1100; J2405; J1885; J1170

== ENCOUNTER 2023-09-29 16:37 | Emergency (ER) | payer MEDICARE, OTHER ==
[2023-09-29 17:07] VITALS: BP 137/79; PULSE 127; RESP 20; TEMP 98.5
--- NOTE | 2023-09-29 17:16 | ED ---
General Adult HPI - General Chief complaint: Extremity Injury, Lower Stated complaint: left hip pain Time Seen by Provider: 09/29/23 17:01 Source: patient, RN notes reviewed, old records reviewed Mode of arrival: wheelchair Limitations: no limitations - History of Present Illness Initial comments: Patient is a 63-year-old male who presents emergency department complaining of chronic left hip pain. Ran out of his oxycodone in the last few days. States he was due for refill on his prescription and did not take extra ones. Attempted to contact his PCP however they did not return his phone call on Sunday. States he is having worsening of his chronic pain. He did fall 2 weeks ago however had no injuries after the fall. Has a history of chronic left hip pain and is due to have surgery on it. Is currently undergoing cardiac clearance for it. Has no other acute complaints at this time. Is seeking analgesic medications. He denies any paralysis of the left leg, saddle paresthesias, urinary or bowel incontinence or retention. - Related Data Home Medications Medication Instructions Recorded Confirmed Metoprolol Succinate (ER) [Toprol 100 mg PO DAILY 11/01/17 09/07/22 XL] Ondansetron [Zofran ODT] 8 mg PO DAILY PRN 05/18/18 09/07/22 Isosorbide Mononitrate ER [Imdur] 30 mg PO DAILY 04/17/19 09/07/22 Albuterol Inhaler [Ventolin Hfa 2 puff INHALATION RT-Q4H PRN 09/07/21 09/07/22 Inhaler] Aspirin EC [Ecotrin Low Dose] 81 mg PO DAILY 09/07/21 09/07/22 Bictegrav/Emtricit/Tenofov Ala 1 tab PO DAILY 09/07/21 09/07/22 [Biktarvy 50-200-25 mg Tablet] Bumetanide [BUMEX] 1 mg PO DAILY 09/07/21 09/07/22 Colchicine 0.6 mg PO BID 09/07/21 09/07/22 Loperamide [Imodium] 2 - 4 mg PO QID PRN MDD 4 capsules 09/07/21 09/07/22 allopurinoL [Zyloprim] 300 mg PO DAILY 09/07/21 09/07/22 diphenhydrAMINE [Benadryl] 25 - 50 mg PO HS 09/07/21 09/07/22 hydrALAZINE HCL 50 mg PO TID 09/07/21 09/07/22 ALPRAZolam [Xanax] 0.25 mg PO Q6H PRN 09/07/22 09/07/22 Albuterol Nebulized [Ventolin 2.5 mg INHALATION RT-Q6H PRN 09/07/22 09/07/22 Nebulized] Darunavir/Cobicistat [Prezcobix 1 tab PO DAILY 09/07/22 09/07/22 800 mg-150 mg Tablet] Levothyroxine Sodium [Synthroid] 75 mcg PO DAILY 09/07/22 09/07/22 diphenhydrAMINE [Benadryl] 25 - 50 mg PO TID PRN 09/07/22 09/07/22 oxyCODONE HCL/ACETAMINOPHEN 1 tab PO Q6HR 09/07/22 09/07/22 [Percocet 7.5-325 mg] traZODone HCL [Desyrel] 100 mg PO HS 09/07/22 09/07/22 Previous Rx's Medication Instructions Recorded Ketorolac [Toradol] 10 mg PO Q8HR #15 tab 10/09/22 Allergies Allergy/AdvReac Type Severity Reaction Status Date / Time abacavir [From Ziagen] Allergy Anaphylaxis Verified 09/29/23 16:42 efavirenz [From Sustiva] Allergy Anaphylaxis Verified 09/29/23 16:42 levofloxacin Allergy Itching Verified 09/29/23 16:42 hydrocodone AdvReac Rapid Verified 09/29/23 16:42 [From Hysingla ER] Heart Rate morphine AdvReac Itching Verified 09/29/23 16:42 sulfamethoxazole AdvReac HIGH Verified 09/29/23 16:42 [From Bactrim] CREATININE LEVEL trimethoprim [From Bactrim] AdvReac HIGH Verified 09/29/23 16:42 CREATININE Review of Systems ROS Statement: Those systems with pertinent positive or pertinent negative responses have been documented in the HPI. Review of Systems: CONST: Denies fever EYES: Denies blurry vision ENT: Denies nasal congestion C/V: Denies Chest pain RESP: Denies shortness of breath GI: Denies abdominal pain : Denies dysuria SKIN: Denies rash. MSK: Endorses left hip pain NEURO: Denies headache ROS Other: All systems not noted in ROS Statement are negative. Past Medical History Past Medical History: Asthma, Heart Failure, Fibromyalgia, GERD/Reflux, Hypertension, Prostate Disorder Additional Past Medical History / Comment(s): Mitral valve disease and a previous mitral valve surgery, possibly repair versus placement, HIV positive, past HTN and recently low blood pressures, BPH, R ankle gout, chronic nausea, bilateral glaucoma, DDD, chronic pain syndrome, chronic low back and bilateral hip pain and occasional cervical pain, DDD, lumbar stenosis/spondylosis, abdominal hernia, previous history of drug overdose. History of Any Multi-Drug Resistant Organisms: None Reported Past Surgical History: Heart Catheterization, Hernia Repair, Orthopedic Surgery Additional Past Surgical History / Comment(s): Mitral valve repair at [facility], R inguinal hernia x2, L inguinal hernia, epidural injections to back, hip injections, RFAs, spinal cord stimulator trial. Past Anesthesia/Blood Transfusion Reactions: No Reported Reaction Past Psychological History: Anxiety, Depression, PTSD Smoking Status: Former smoker Past Alcohol Use History: Occasional Past Drug Use History: Marijuana - Past Family History Father Additional Family Medical History / Comment(s): Father was injured at work and of complication during his hospitalization. Mother Additional Family Medical History / Comment(s): Mother is from alcoholism. General Exam - General Exam Comments Initial Comments: General: Appears in pain HEAD: Normal with no signs of head trauma. EYES: EOMI. ENT: Hearing grossly intact. RESPIRATORY: No respiratory distress. C/V: Regular rate and rhythm. ABD: Abdomen is nondistended. EXT: No obvious deformity. Tenderness to palpation over the left hip. No focal tenderness. Neurovascular intact throughout. SKIN: No rashes or lesions observed on exposed skin. NEURO: Alert and oriented. No focal deficits. Limitations: no limitations Course Vital Signs 09/29/23 16:39 Temperature 98.5 F Pulse Rate 127 H Respiratory 20 Rate Blood Pressure 137/79 O2 Sat by Pulse 99 Oximetry Medical Decision Making - Medical Decision Making Was pt. sent in by a medical professional or institution (, PA, AUTOMOBILE INSURANCE CLAIM EXAMINER, urgent care, hospital, or prison...) When possible be specific @ -No Did you speak to anyone other than the patient for history (EMS, parent, family, police, friend...)? What history was obtained from this source @ -No Did you review nursing and triage notes (agree or disagree)? Why? @ -I reviewed and agree with nursing and triage notes Were old charts reviewed (outside hosp., previous admission, EMS record, old EKG, old radiological studies, urgent care reports/EKG's, prison records)? Report findings @ -No old charts were reviewed Differential Diagnosis (chest pain, altered mental status, abdominal pain women, abdominal pain men, vaginal bleeding, weakness, fever, dyspnea, syncope, headache, dizziness, GI bleed, back pain, seizure, CVA, palpatations, mental health, musculoskeletal)? @ -Chronic left hip pain, acute on chronic left hip pain. This list is not all inclusive. EKG interpreted by me (3pts min.). @ -None done X-rays interpreted by me (1pt min.). @ -None done CT interpreted by me (1pt min.). @ -None done U/S interpreted by me (1pt. min.). @ -None done What testing was considered but not performed or refused? (CT, X-rays, U/S, labs)? Why? @ -I did offer imaging due to the fall within the last few weeks however patient declines that. He is seeking just analgesia medications at this time. No red flag symptoms so I believe this is reasonable. What meds were considered but not given or refused? Why? @ -None Did you discuss the management of the patient with other professionals (professionals i.e. , PA, AUTOMOBILE INSURANCE CLAIM EXAMINER, lab, RT, psych nurse, adoption social worker, lamp stack developer, teacher, credit or loans officer, hospice case manager)? Give summary @ -No Was smoking cessation discussed for >3mins.? @ -No Was critical care preformed (if so, how long)? @ -No Were there social determinants of health that impacted care today? How? (Homelessness, low income, unemployed, alcoholism, drug addiction, transportation, low edu. Level, literacy, decrease access to med. care, fdc, rehab)? @ -No Was there de-escalation of care discussed even if they declined (Discuss DNR or withdrawal of care, Hospice)? DNR status @ -No What co-morbidities impacted this encounter? (DM, HTN, Smoking, COPD, CAD, Cancer, CVA, ARF, Chemo, Hep., AIDS, mental health diagnosis, sleep apnea, morbid obesity)? @ -None Was patient admitted / discharged? Hospital course, mention meds given and route, prescriptions, significant lab abnormalities, going to OR and other pertinent info. @ -Patient presents with chronic left hip pain. Is due to have surgery on it. Ran out of his normal oxycodone today and his PCP did not call back on Sunday to refill the prescription. Is seeking analgesia medications at this time. Did fall recently however patient states he did not injure himself. This was 3 weeks ago and was ambulating on it at his normal baseline. However he is run out of his normal pain meds in the last few days and now is having worsening pain in the left hip. No new injuries. Neurovascular intact throughout. I did discuss with him I cannot refill his oxycodone but I can give him a starter pack of Tylenol 3 as well as provide him with 2 [place] 5 tablets here in the department. He was in agreement this plan. Offered imaging of the left hip which patient declines. We both agree he does not require laboratory studies at this time. Patient will be discharged home. Recommended he follow-up with his PCP on Sunday. I instructed the patient to follow up with their PCP in the next 1-3 days. I explained that the patient should return to the emergency department if they experience any worsening symptoms. Strict return precautions were discussed with the patient. The patient expressed understanding of these instructions. I answered all questions that the patient had. The patient was discharged home in good condition with their prescriptions and follow up information. Undiagnosed new problem with uncertain prognosis? @ -No Drug Therapy requiring intensive monitoring for toxicity (Heparin, Nitro, Insulin, Cardizem)? @ -No Were any procedures done? @ -No Diagnosis/symptom? @ -Acute on chronic left hip pain Acute, or Chronic, or Acute on Chronic? @ -Acute on chronic Uncomplicated (without systemic symptoms) or Complicated (systemic symptoms)? @ -Uncomplicated Side effects of treatment? @ -No Exacerbation, Progression, or Severe Exacerbation? @ -No Poses a threat to life or bodily function? How? (Chest pain, [place], [place], pneumonia, PE, COPD, DKA, ARF, appy, cholecystitis, CVA, Diverticulitis, Homicidal, Suicidal, threat to staff... and all critical care pts) @ -No Disposition Clinical Impression: Chronic pain, Hip pain Disposition: HOME SELF-CARE Condition: Good Instructions (If sedation given, give patient instructions): Hip Pain (ED) Is patient prescribed a controlled substance at d/c from ED?: No Referrals: Carie Parson PAC [Primary Care Provider] - 1-2 days Time of Disposition: 17:13
[2023-09-29] MEDS: HYDROcodone/APAP 5-325MG 1 EACH TAB PO STA (17:41)
[2023-09-29] MEDS: ACET/COD 300 MG/30 MG STARTER PACK 6 TAB BTL PO STA (17:42)
== END 2023-09-29 17:55 | disposition home or self-care (01) ==
LOC: EC 16:37
DX: G89.29 Other chronic pain (principal); M25.552 Pain in left hip; Z87.891 Personal history of nicotine dependence; Z88.1 Allergy status to other antibiotic agents; Z88.2 Allergy status to sulfonamides; Z88.5 Allergy status to narcotic agent; Z88.8 Allergy status to other drugs, medicaments and biological substances
CPT/HCPCS: 99283

== ENCOUNTER 2023-10-23 02:15 | Observation (INO) | payer MEDICARE, OTHER ==
--- NOTE | 2023-10-23 02:55 | XR ---
EXAM: XR Chest, 2 Views CLINICAL HISTORY: ITS.REASON XR Reason: MARANDA TECHNIQUE: Frontal and lateral views of the chest. COMPARISON: No relevant prior studies available. IMPRESSION: Cardiomegaly. Left basilar opacity.
--- NOTE | 2023-10-23 02:57 | ED ---
General Adult HPI - General Source: patient Mode of arrival: EMS Limitations: no limitations <Luis Alfredo Retana - Last Filed: 10/23/23 02:58> <Ernie Mayo - Last Filed: 10/23/23 05:32> - General Chief complaint: Shortness of Breath Stated complaint: Vomiting, MARANDA, Bloating Time Seen by Provider: 10/23/23 02:57 - History of Present Illness Initial comments: 63-year-old male presented to the ED with complaints of shortness of breath. Patient reports that that has been ongoing for months however recently worsening over the past few weeks. Also notes some cough with this for the past 4 weeks. (Luis Alfredo Retana) Dictation was produced using [employer] dictation software. please excuse any gra mmatical, word or spelling errors. Chief Complaint: 63-year-old male presents to the emergency department for abdominal pain History of Present Illness: Patient 63-year-old male with multiple com orbidities. He states that he has been at [facility] twice within the last couple weeks. Patient states that he initially presented there for abdominal pain. States that his initial visit he obtained a CT scan. He was discharged. He did go back to [facility] for continued abdominal pain. States that he has pain to his upper abdomen. No nausea vomiting. States that the pain is nonradiating. Denies any fever, chills or night sweats. Denies any associated shortness of breath. Nonradiating symptoms. The ROS documented in this emergency department record has been reviewed and c onfirmed by me. Those systems with pertinent positive or negative responses have been documented in the HPI. All other systems are other negative and/or noncontributory. (Ernie Mayo) - Related Data Home Medications Medication Instructions Recorded Confirmed Metoprolol Succinate (ER) [Toprol 100 mg PO DAILY 11/01/17 09/07/22 XL] Ondansetron [Zofran ODT] 8 mg PO DAILY PRN 05/18/18 09/07/22 Isosorbide Mononitrate ER [Imdur] 30 mg PO DAILY 04/17/19 09/07/22 Albuterol Inhaler [Ventolin Hfa 2 puff INHALATION RT-Q4H PRN 09/07/21 09/07/22 Inhaler] Aspirin EC [Ecotrin Low Dose] 81 mg PO DAILY 09/07/21 09/07/22 Bictegrav/Emtricit/Tenofov Ala 1 tab PO DAILY 09/07/21 09/07/22 [Biktarvy 50-200-25 mg Tablet] Bumetanide [BUMEX] 1 mg PO DAILY 09/07/21 09/07/22 Colchicine 0.6 mg PO BID 09/07/21 09/07/22 Loperamide [Imodium] 2 - 4 mg PO QID PRN MDD 4 capsules 09/07/21 09/07/22 allopurinoL [Zyloprim] 300 mg PO DAILY 09/07/21 09/07/22 diphenhydrAMINE [Benadryl] 25 - 50 mg PO HS 09/07/21 09/07/22 hydrALAZINE HCL 50 mg PO TID 09/07/21 09/07/22 ALPRAZolam [Xanax] 0.25 mg PO Q6H PRN 09/07/22 09/07/22 Albuterol Nebulized [Ventolin 2.5 mg INHALATION RT-Q6H PRN 09/07/22 09/07/22 Nebulized] Darunavir/Cobicistat [Prezcobix 1 tab PO DAILY 09/07/22 09/07/22 800 mg-150 mg Tablet] Levothyroxine Sodium [Synthroid] 75 mcg PO DAILY 09/07/22 09/07/22 diphenhydrAMINE [Benadryl] 25 - 50 mg PO TID PRN 09/07/22 09/07/22 oxyCODONE HCL/ACETAMINOPHEN 1 tab PO Q6HR 09/07/22 09/07/22 [Percocet 7.5-325 mg] traZODone HCL [Desyrel] 100 mg PO HS 09/07/22 09/07/22 Previous Rx's Medication Instructions Recorded Ketorolac [Toradol] 10 mg PO Q8HR #15 tab 10/09/22 Allergies Allergy/AdvReac Type Severity Reaction Status Date / Time abacavir [From Ziagen] Allergy Anaphylaxis Verified 10/23/23 02:18 efavirenz [From Sustiva] Allergy Anaphylaxis Verified 10/23/23 02:18 levofloxacin Allergy Itching Verified 10/23/23 02:18 hydrocodone AdvReac Rapid Verified 10/23/23 02:18 [From Hysingla ER] Heart Rate morphine AdvReac Itching Verified 10/23/23 02:18 sulfamethoxazole AdvReac HIGH Verified 10/23/23 02:18 [From Bactrim] CREATININE LEVEL trimethoprim [From Bactrim] AdvReac HIGH Verified 10/23/23 02:18 CREATININE Review of Systems ROS Other: All systems not noted in ROS Statement are negative. <Luis Alfredo Retana - Last Filed: 10/23/23 02:58> ROS Other: All systems not noted in ROS Statement are negative. <Ernie Mayo - Last Filed: 10/23/23 05:32> ROS Statement: Those systems with pertinent positive or pertinent negative responses have been documented in the HPI. Past Medical History Past Medical History: Asthma, Heart Failure, Fibromyalgia, GERD/Reflux, Hypertension, Prostate Disorder Additional Past Medical History / Comment(s): Mitral valve disease and a previous mitral valve surgery, possibly repair versus placement, HIV positive, past HTN and recently low blood pressures, BPH, R ankle gout, chronic nausea, bilateral glaucoma, DDD, chronic pain syndrome, chronic low back and bilateral hip pain and occasional cervical pain, DDD, lumbar stenosis/spondylosis, abdominal hernia, previous history of drug overdose. History of Any Multi-Drug Resistant Organisms: None Reported Past Surgical History: Heart Catheterization, Hernia Repair, Orthopedic Surgery Additional Past Surgical History / Comment(s): Mitral valve repair at [facility], R inguinal hernia x2, L inguinal hernia, epidural injections to back, hip injections, RFAs, spinal cord stimulator trial. Past Anesthesia/Blood Transfusion Reactions: No Reported Reaction Past Psychological History: Anxiety, Depression, PTSD Smoking Status: Former smoker Past Alcohol Use History: Occasional Past Drug Use History: Marijuana - Past Family History Father Additional Family Medical History / Comment(s): Father was injured at work and of complication during his hospitalization. Mother Additional Family Medical History / Comment(s): Mother is from alcoholism. <Luis Alfredo Retana - Last Filed: 10/23/23 02:58> General Exam Limitations: no limitations <Luis Alfredo Retana - Last Filed: 10/23/23 02:58> <Ernie Mayo - Last Filed: 10/23/23 05:32> - General Exam Comments Initial Comments: Visual Physical Exam Vital signs reviewed General: Well-appearing, nontoxic, no acute distress. Head: Normocephalic, atraumatic Eyes: PERRLA, EOMI ENT: Airway patent Chest: Nonlabored breathing Skin: No visual rash, normal skin tone Neuro: Alert and oriented 3 Musculoskeletal: No gross abnormalities (Luis Alfredo Retana) PHYSICAL EXAM: General Impression: Alert and oriented x3, not in acute distress HEENT: Normocephalic atraumatic, extra-ocular movements intact, pupils equal and reactive to light bilaterally, mucous membranes moist. Cardiovascular: Heart regular rate and rhythm Chest: Able to complete full sentences, no retractions, no tachypnea Abdomen: abdomen soft, non-tender, non-distended, no organomegaly Musculoskeletal: Pulses present and equal in all extremities, no peripheral edema Motor: no focal deficits noted Neurological: CN II-XII grossly intact, no focal motor or sensory deficits noted Skin: Intact with no visualized rashes Psych: Normal affect and mood (Ernie Mayo) Course Vital Signs 10/23/23 10/23/23 02:16 05:20 Temperature 97.5 F L Pulse Rate 86 98 Respiratory 18 16 Rate Blood Pressure 145/86 158/94 O2 Sat by Pulse 100 97 Oximetry Medical Decision Making <Luis Alfredo Retana - Last Filed: 10/23/23 02:58> - Lab Data Result diagrams: 10/23/23 02:45 10/23/23 02:45 <Ernie Mayo - Last Filed: 10/23/23 05:32> - Medical Decision Making Quicknote portion performed. Signed Luis Alfredo Retana PA-C (Luis Alfredo Retana) Was pt. sent in by a medical professional or institution (, PA, [facility], urgent care, hospital, or fpc...) When possible be specific @ -No Did you speak to anyone other than the patient for history (EMS, parent, family, police, friend...)? What history was obtained from this source @ -No Did you review nursing and triage notes (agree or disagree)? Why? @ -I reviewed and agree with nursing and triage notes Were old charts reviewed (outside hosp., previous admission, EMS record, old EKG, old radiological studies, urgent care reports/EKG's, fpc records)? Report findings @ -No old charts were reviewed Differential Diagnosis (chest pain, altered mental status, abdominal pain women, abdominal pain men, vaginal bleeding, musculoskeletal, weakness, fever, dyspnea, syncope, headache, dizziness, GI bleed, back pain, seizure, CVA, palpatations, mental health)? @ -Differential Abdominal Pain Men: Appendicitis, cholecystitis, diverticulosis, ischemic bowel, pancreatitis, hepatitis, UTI, gastroenteritis, AAA, incarcerated hernia, bowel obstruction, constipation, inflammatory bowel, hepatitis, peptic ulcer disease, splenic infarction, perforated viscus, testicular torsion, this is not meant to be an all-inclusive list EKG interpreted by me (3pts min.). @ -See above X-rays interpreted by me (1pt min.). @ -Chest x-ray shows left basilar opacity CT interpreted by me (1pt min.). @ -None done U/S interpreted by me (1pt. min.). @ -None done What testing was considered but not performed or refused? (CT, X-rays, U/S, labs)? Why? @ -None What meds were considered but not given or refused? Why? @ -None Did you discuss the management of the patient with other professionals (professionals i.e. , PA, [facility], lab, RT, psych nurse, social work nurse, compo caster, teacher, ski patrol officer, outpatient case manager)? Give summary @ -Case discussed with hospitalist for admission Was smoking cessation discussed for >3mins.? @ -No Was critical care preformed (if so, how long)? @ -No Were there social determinants of health that impacted care today? How? (Homelessness, low income, unemployed, alcoholism, drug addiction, transportation, low edu. Level, literacy, decrease access to med. care, nursing home, rehab)? @ -No Was there de-escalation of care discussed even if they declined (Discuss DNR or withdrawal of care, Hospice)? DNR status @ -No What co-morbidities impacted this encounter? (DM, HTN, Smoking, COPD, CAD, Cancer, CVA, ARF, Chemo, Hep., AIDS, mental health diagnosis, sleep apnea, morbid obesity)? @ -None Was patient admitted / discharged? Hospital course, mention meds given and route, prescriptions, significant lab abnormalities, going to OR and other pertinent info. @ -63-year-old male presents to the emergency department for upper abdominal pain. Vital signs upon arrival are within acceptable limits. Patient has multiple ACS risk factors including obesity, hypertension, HIV and age. Patient has upper abdominal pain worrisome for ACS. EKG shows no ischemia infarction. Laboratory evaluation is obtained. CBC, coag panel is negative. Patient has a nongap acidosis. Lactic acidosis 2.9. Troponin is 0.029. Troponins trended he is not typically this elevated. He does have history of mitral valve surgery. Troponin could potentially be elevated secondary to history of cardiac surgery however there is some suspicion that given his ongoing symptoms that there is a component of ACS. Patient will be admitted. Patient given aspirin. Cardiology consulted. Patient had a left basilar opacity. Patient has history of HIV it is unclear what patient's last CD4 count was. However his labs did not suggest AIDS. Patient treated with antibiotics. Undiagnosed new problem with uncertain prognosis? @ -No Drug Therapy requiring intensive monitoring for toxicity (Heparin, Nitro, Insulin, Cardizem)? @ -No Were any procedures done? @ -No Diagnosis/symptom? Acute, or Chronic, or Acute on Chronic? Uncomplicated (without systemic symptoms) or Complicated (systemic symptoms)? @ -Upper abdominal pain, pneumonia Side effects of treatment? @ -No Exacerbation, Progression, or Severe Exacerbation? @ -No Poses a threat to life or bodily function? How? (Chest pain, [place], [place], pneumonia, PE, COPD, DKA, ARF, appy, cholecystitis, CVA, Diverticulitis, Homicidal, Suicidal, threat to staff... and all critical care pts) @ -yes (Ernie Mayo) - Lab Data Lab Results 10/23/23 10/23/23 10/23/23 Range/Units 02:45 02:45 02:45 WBC 6.1 (3.8-10.6) k/uL RBC 4.51 (4.30-5.90) m/uL Hgb 14.1 (13.0-17.5) gm/dL Hct 45.4 (39.0-53.0) % MCV 100.6 H (80.0-100.0) fL MCH 31.3 (25.0-35.0) pg MCHC 31.2 (31.0-37.0) g/dL RDW 15.8 H (11.5-15.5) % Plt Count 159 (150-450) k/uL MPV 10.2 Neutrophils % 55 % Lymphocytes % 34 % Monocytes % 5 % Eosinophils % 2 % Basophils % 2 % Neutrophils # 3.4 (1.3-7.7) k/uL Lymphocytes # 2.0 (1.0-4.8) k/uL Monocytes # 0.3 (0-1.0) k/uL Eosinophils # 0.1 (0-0.7) k/uL Basophils # 0.1 (0-0.2) k/uL Hypochromasia Slight Macrocytosis Slight PT 12.2 (10.0-12.5) sec INR 1.1 (<1.2) APTT 26.4 (22.0-30.0) sec Sodium 138 (137-145) mmol/L Potassium 4.6 (3.5-5.1) mmol/L Chloride 106 (98-107) mmol/L Carbon Dioxide 19 L (22-30) mmol/L Anion Gap 13 mmol/L BUN 19 (9-20) mg/dL Creatinine 0.97 (0.66-1.25) mg/dL Est GFR (CKD-EPI)AfAm >90 (>60 ml/min/1.73 sqM) Est GFR (CKD-EPI)NonAf 85 (>60 ml/min/1.73 sqM) Glucose 99 (74-99) mg/dL Plasma Lactic Acid Alexey (0.7-2.0) mmol/L Calcium 9.1 (8.4-10.2) mg/dL Total Bilirubin 1.4 H (0.2-1.3) mg/dL AST 38 (17-59) U/L ALT 12 (4-49) U/L Alkaline Phosphatase 121 (38-126) U/L Troponin I (0.000-0.034) ng/mL Total Protein 7.0 (6.3-8.2) g/dL Albumin 3.7 (3.5-5.0) g/dL Amylase 77 (30-110) U/L Lipase 124 (23-300) U/L 10/23/23 10/23/23 Range/Units 02:45 02:45 WBC (3.8-10.6) k/uL RBC (4.30-5.90) m/uL Hgb (13.0-17.5) gm/dL Hct (39.0-53.0) % MCV (80.0-100.0) fL MCH (25.0-35.0) pg MCHC (31.0-37.0) g/dL RDW (11.5-15.5) % Plt Count (150-450) k/uL MPV Neutrophils % % Lymphocytes % % Monocytes % % Eosinophils % % Basophils % % Neutrophils # (1.3-7.7) k/uL Lymphocytes # (1.0-4.8) k/uL Monocytes # (0-1.0) k/uL Eosinophils # (0-0.7) k/uL Basophils # (0-0.2) k/uL Hypochromasia Macrocytosis PT (10.0-12.5) sec INR (<1.2) APTT (22.0-30.0) sec Sodium (137-145) mmol/L Potassium (3.5-5.1) mmol/L Chloride (98-107) mmol/L Carbon Dioxide (22-30) mmol/L Anion Gap mmol/L BUN (9-20) mg/dL Creatinine (0.66-1.25) mg/dL Est GFR (CKD-EPI)AfAm (>60 ml/min/1.73 sqM) Est GFR (CKD-EPI)NonAf (>60 ml/min/1.73 sqM) Glucose (74-99) mg/dL Plasma Lactic Acid Alexey 2.9 H* (0.7-2.0) mmol/L Calcium (8.4-10.2) mg/dL Total Bilirubin (0.2-1.3) mg/dL AST (17-59) U/L ALT (4-49) U/L Alkaline Phosphatase (38-126) U/L Troponin I 0.029 (0.000-0.034) ng/mL Total Protein (6.3-8.2) g/dL Albumin (3.5-5.0) g/dL Amylase (30-110) U/L Lipase (23-300) U/L Disposition <Luis Alfredo Retana - Last Filed: 10/23/23 02:58> Decision Time: 05:32 <Ernie Mayo - Last Filed: 10/23/23 05:32> Clinical Impression: Upper abdominal pain Disposition: ADMITTED IP TO THIS HOSP Condition: Fair Referrals: Girma Malone MD [Primary Care Provider] - 1-2 days
[2023-10-23 03:01] LABS: Basophils # (A) 0.1 k/uL (0-0.2); Basophils % (A) 2 %; Eosinophils # (A) 0.1 k/uL (0-0.7); Eosinophils % (A) 2 %; HCT 45.4 % (39.0-53.0); HGB 14.1 gm/dL (13.0-17.5); Hypochromasia Slight; Lymphocytes % (A) 34 %; MCH 31.3 pg (25.0-35.0); MCHC 31.2 g/dL (31.0-37.0); MCV 100.6 fL (80.0-100.0); Macrocytosis Slight; Mean Platelet Volume 10.2; Monocytes # (A) 0.3 k/uL (0-1.0); Monocytes % (A) 5 %; Neutrophils # (A) 3.4 k/uL (1.3-7.7); Neutrophils % (A) 55 %; Platelet Count 159 k/uL (150-450); RBC 4.51 m/uL (4.30-5.90); RDW 15.8 % (11.5-15.5); WBC 6.1 k/uL (3.8-10.6)
[2023-10-23 03:19] LABS: INR 1.1 (<1.2); Partial Thromboplastin Time 26.4 sec (22.0-30.0); Prothrombin Time 12.2 sec (10.0-12.5)
[2023-10-23 03:22] LABS: ALT 12 U/L (4-49); AST 38 U/L (17-59); African American GFR (CKD) >90 (>60 ml/min/1.73 sqM); Albumin 3.7 g/dL (3.5-5.0); Alkaline Phosphatase 121 U/L (38-126); Amylase 77 U/L (30-110); Anion Gap 13 mmol/L; Blood Urea Nitrogen 19 mg/dL (9-20); Calcium 9.1 mg/dL (8.4-10.2); Carbon Dioxide 19 mmol/L (22-30); Chloride 106 mmol/L (98-107); Glucose 99 mg/dL (74-99); Lipase 124 U/L (23-300); Non-African American GFR(CKD) 85 (>60 ml/min/1.73 sqM); Potassium 4.6 mmol/L (3.5-5.1); Sodium 138 mmol/L (137-145); Total Bilirubin 1.4 mg/dL (0.2-1.3)
[2023-10-23] MEDS: SODIUM CHLORIDE 0.9% 1,000 ML IV STA (03:44)
[2023-10-23] MEDS: ONDANSETRON 4 MG/2 ML VIAL IVP STA (04:29)
[2023-10-23] MEDS: ASPIRIN 81 MG PO STA (05:15)
[2023-10-23] MEDS ORDERED: NITROGLYCERIN SL TABS 0.4 MG TAB SUBLINGUAL PRN (05:25)
[2023-10-23] MEDS: IPRATROPIUM-ALBUTEROL 3 ML NEB INHALATION STA (06:01)
[2023-10-23] MEDS: AZITHROMYCIN 500 MG in SODIUM CHLORIDE 0.9% 250 ML IVPB STA (07:19)
[2023-10-23] MEDS: PANTOPRAZOLE 40 MG/10 ML VIAL IVP STA (07:19)
[2023-10-23] MEDS: cefTRIAXone IN SWFI 1,000 MG/10 ML SYRINGE IVP STA (07:19)
[2023-10-23] MEDS: HYDROmorphone 1 MG/ML 1 ML SYRINGE IVP STA (08:12)
[2023-10-23] MEDS: ONDANSETRON 4 MG/2 ML VIAL IVP PRN (08:12)
[2023-10-23] MEDS: ALPRAZolam 0.25 MG TAB PO PRN (08:12)
--- NOTE | 2023-10-23 08:59 | CT ---
EXAMINATION TYPE: CT abdomen pelvis wo con DATE OF EXAM: 10/23/2023 COMPARISON: CT chest 02/20/2022 HISTORY: 63-year-old male nausea and vomiting CT DLP: 1203.4 mGycm. Automated exposure control for dose reduction was used. TECHNIQUE: Contiguous axial scanning of the abdomen and pelvis without IV contrast. Coronal and sagit kristofer reconstructions performed. FINDINGS: The heart is mildly enlarged. There are trace bilateral pleural effusions with some basilar septal li kate. Mild circumferential wall thickening distal esophagus. Distention of the IVC. Liver enlarged at 21.7 cm at least mild hepatic steatosis. Abnormal gallbladder distention. Adrenal glands, spleen, and pancreas within normal limits. 1.2 cm cortical hypodensity anterior right kidney likely a small cortical cyst. No hydronephrosis on either side. No dilated small bowel or free air. No significant stool burden. Small hiatal hernia. Moderate generalized anasarca change with body wall edema. Mild to moderate abdominopelvic ascites. Presacral edema. Bladder collapsed below with circumferentia l wall thickening. No pelvic lymphadenopathy seen. Bones: Facet arthropathy lower lumbar spine. Transitional lumbosacral segment is noted as a sacralize d L5. IMPRESSION: 1. Diffuse anasarca change with cardiomegaly, trace bilateral pleural effusions, and mild to moderat e ascites throughout the abdomen and pelvis. Correlate for fluid overload state such as CHF or liver failure. 2. Mild circumferential wall thickening distal esophagus could reflect a mild esophagitis. 3. Circumferential bladder wall thickening may be chronic for the patient. Correlate to exclude cyst itis.
[2023-10-23] MEDS: METOCLOPRAMIDE 5 MG/ML 2 ML VIAL IVP PRN (09:06)
--- NOTE | 2023-10-23 10:01 | P.HPIM ---
History of Present Illness H&P Date: 10/23/23 63 year old M with PMH of HIV follows ID at [facility], HTN, HFrEF, Gout, COPD, Hypothyroidism presents to the ED with multiple complaints. He complains of intractable N/V that has especially getting worse over the past 3 days. He reports abdominal bloating during this time. He reports left sided chest pain which he relates to heartburn. He reports chronic diarrhea. No changes in meds or diet. He reports increased shortness of breath with little exertion and lower extremity swelling. 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 In the ED he underwent extensive evaluation. BP 145/68, HR 86, RR 18, T 97.5F, 100% on RA. CBC, Coag panel, CMP done which showed MCV 100.6, bicarb 19, T. Bili 1.4. Lactic acid 2.9. Amylase 77, Lipase 77. Troponin 0.029. EKG showed sinus rhythm with no ST depression or elevation. CXR left basilar opacity. Patient is admitted for chest pain, rule out ACS, Cardiology evaluation. General: non toxic, mild-mod distress, appears at stated age Derm: warm, dry Head: atraumatic, normocephalic, symmetric Eyes: EOMI, no lid lag, anicteric sclera Mouth: no lip lesion, mucus membranes moist Cardiovascular: S1S2 reg, no murmur Lungs: CTA bilateral, no rhonchi, no rales , no accessory muscle use Abd: TTP in all 4 quadrants without rebound. Distended. Ext: no gross muscle atrophy, no edema, no contractures Neuro: no focal neuro deficits Psych: Alert, oriented, appropriate affect Based on my assessment of this patient, this patient meets a high complexity level of care. Patient has an acute diagnosis of intractable N/V that poses a threat to life or bodily function. Intractable N/V due to esophagitis: Protonix 40 mg IV QD. Carafate 1g PO BID. Reglan 10 mg IV Q6 + Zofran 4 mg IV Q6 PRN for N/V. Abdominal distension due to ascites: Start Bumex 1 mg IV BID. Strict intake and outtake. Daily weights. Obtain Abd US. Acute on chronic HFrEF: Bumex as above. Metoprolol 100 mg PO BID. Patient would benefit from Aldactone/ACEi. Recent 2022 Echo shows EF 35-40% with G3DD and hypokinetic apex and septum. Cardiology consulted. Chest pain: Trend Trop/EKG to rule out ACS. ASA 81 mg PO QD. Beta trish as above. Telemetry monitoring. Cardiology consulted. Lactic acidosis: 1L NS bolus in the ED. Unknown etiology. Possible dehydration. Trend until negative. Elevated total bilirubin: Hepatic steatosis on CT with abnormal GB distention. Obtain GB US. HIV: Restart Biktarvy and Prezcobix. Gout: Allopurinol 300 mg PO QD. Colchicine 0.6 mg PO BID. COPD: Not in acute exacerbation. Hypothyroidism: Synthroid 75 mcg PO QD. CODE STATUS: FULL CODE. DVT Prophylaxis: Lovenox. GI Prophylaxis: Protonix IV Designated medical POA if patient is not able to make medical decisions for themselves: I have reviewed the following labor relations consultant notes: ED I have reviewed the results of the following tests: As above. I have ordered the following tests: As above. I have discussed the care of this patient with the following independent historian: I have independently interpreted the following test below: EKG. CXR. I have discussed the management of this patient with the following physician: Dr. Mayo. Past Medical History Past Medical History: Asthma, Heart Failure, Fibromyalgia, GERD/Reflux, Hypertension, Prostate Disorder Additional Past Medical History / Comment(s): Mitral valve disease and a previous mitral valve surgery, possibly repair versus placement, HIV positive, past HTN and recently low blood pressures, BPH, R ankle gout, chronic nausea, bilateral glaucoma, DDD, chronic pain syndrome, chronic low back and bilateral hip pain and occasional cervical pain, DDD, lumbar stenosis/spondylosis, abdominal hernia, previous history of drug overdose. History of Any Multi-Drug Resistant Organisms: None Reported Past Surgical History: Heart Catheterization, Hernia Repair, Orthopedic Surgery Additional Past Surgical History / Comment(s): Mitral valve repair at [facility], R inguinal hernia x2, L inguinal hernia, epidural injections to back, hip injections, RFAs, spinal cord stimulator trial. Past Anesthesia/Blood Transfusion Reactions: No Reported Reaction Past Psychological History: Anxiety, Depression, PTSD Smoking Status: Former smoker Past Alcohol Use History: Occasional Past Drug Use History: Marijuana - Past Family History Father Additional Family Medical History / Comment(s): Father was injured at work and of complication during his hospitalization. Mother Additional Family Medical History / Comment(s): Mother is from alcoholism. Medications and Allergies Home Medications Medication Instructions Recorded Confirmed Type Metoprolol Succinate (ER) [Toprol 100 mg PO BID 11/01/17 10/23/23 History XL] Ondansetron [Zofran ODT] 8 mg PO BID PRN 05/18/18 10/23/23 History Isosorbide Mononitrate ER [Imdur] 30 mg PO DAILY 04/17/19 10/23/23 History Aspirin EC [Ecotrin Low Dose] 81 mg PO DAILY 09/07/21 10/23/23 History Bictegrav/Emtricit/Tenofov Ala 1 tab PO DAILY 09/07/21 10/23/23 History [Biktarvy 50-200-25 mg Tablet] Bumetanide [BUMEX] 1 mg PO DAILY 09/07/21 10/23/23 History Darunavir/Cobicistat [Prezcobix 1 tab PO DAILY 09/07/22 10/23/23 History 800 mg-150 mg Tablet] Levothyroxine Sodium [Synthroid] 75 mcg PO DAILY 09/07/22 10/23/23 History traZODone HCL [Desyrel] 100 mg PO HS 09/07/22 10/23/23 History Ipratropium-Albuterol Nebulize 3 ml INHALATION RT-BID PRN 10/23/23 10/23/23 History [Duoneb 0.5 mg-3 mg/3 ml Soln] Pantoprazole Sodium [Protonix] 40 mg PO DAILY 10/23/23 10/23/23 History oxyCODONE-APAP 5-325MG [Percocet 1 tab PO TID PRN 10/23/23 10/23/23 History 5-325 mg] Allergies Allergy/AdvReac Type Severity Reaction Status Date / Time abacavir [From Ziagen] Allergy Anaphylaxis Verified 10/23/23 08:24 efavirenz [From Sustiva] Allergy Anaphylaxis Verified 10/23/23 08:24 levofloxacin Allergy Itching Verified 10/23/23 08:24 hydrocodone AdvReac Rapid Verified 10/23/23 08:24 [From Hysingla ER] Heart Rate morphine AdvReac Itching Verified 10/23/23 08:24 sulfamethoxazole AdvReac HIGH Verified 10/23/23 08:24 [From Bactrim] CREATININE LEVEL trimethoprim [From Bactrim] AdvReac HIGH Verified 10/23/23 08:24 CREATININE Physical Exam Vitals: Vital Signs Temp Pulse Resp BP Pulse Ox 10/23/23 06:11 100 10/23/23 06:03 98 10/23/23 05:20 98 16 158/94 97 10/23/23 02:16 97.5 F L 86 18 145/86 100 Intake and Output 10/22/23 10/23/23 10/23/23 22:59 06:59 14:59 Other: Weight 90.718 kg Results CBC & Chem 7: 10/23/23 02:45 10/23/23 02:45 Labs: Abnormal Lab Results - Last 24 Hours (Table) 10/23/23 10/23/23 10/23/23 Range/Units 02:45 02:45 02:45 MCV 100.6 H (80.0-100.0) fL RDW 15.8 H (11.5-15.5) % Carbon Dioxide 19 L (22-30) mmol/L Plasma Lactic Acid Alexey 2.9 H* (0.7-2.0) mmol/L Total Bilirubin 1.4 H (0.2-1.3) mg/dL 10/23/23 Range/Units 07:09 MCV (80.0-100.0) fL RDW (11.5-15.5) % Carbon Dioxide (22-30) mmol/L Plasma Lactic Acid Alexey 2.4 H* (0.7-2.0) mmol/L Total Bilirubin (0.2-1.3) mg/dL
[2023-10-23] MEDS: hydrALAZINE HCL 50 MG TAB PO SCH (10:04)
[2023-10-23] MEDS: COLCHICINE 0.6 MG EACH PO SCH (10:05)
[2023-10-23] MEDS: METOPROLOL SUCCINATE (ER) 100 MG TAB.ER.24H PO SCH (10:06)
[2023-10-23] MEDS: BUMETANIDE 1 MG TAB PO SCH (10:06)
[2023-10-23] MEDS: COBICISTAT PO SCH (10:08)
[2023-10-23] MEDS: NON FORMULARY DRUG (Bictegrav/Emtricit/Tenofov Ala [Biktarvy 50-200-25 Mg Tablet] 1 EACH T PO SCH (10:08)
[2023-10-23] MEDS: [UNRECOGNIZED DRUG - OTHER] PO SCH (10:08)
[2023-10-23] MEDS: DARUNAVIR PO SCH (10:08)
[2023-10-23] MEDS: allopurinoL 300 MG TAB PO SCH (10:33)
[2023-10-23] MEDS: ISOSORBIDE MONONITRATE ER 30 MG TAB.ER.24H PO SCH (10:34)
[2023-10-23] MEDS: SUCRALFATE 1 GM TAB PO SCH (10:35)
--- NOTE | 2023-10-23 11:36 | P.CRDCN ---
History of Present Illness History of present illness: HISTORY OF PRESENT ILLNESS: This is a 63-year-old male with a past medical history significant for HIV, valvular heart disease with previous mitral valve repair in 2000 at [facility], hypertension, hyperlipidemia, paroxysmal atrial fibrillation, alcohol abuse, and morbid obesity. Patient follows in the office with Dr. Morales. We have been asked to see the patient in consultation for chest pain. Patient examined at the bedside the emergency room. Patient states he presented to the hospital for chief complaint of abdominal pain. He states he has been having abdominal pain for the past 2 months. He also reports nausea and vomiting. He was recently at [facility] for similar symptoms. The patient denies having any chest pain. Vital signs are stable. DIAGNOSTICS: - EKG reveals sinus mechanism with no signs of acute ischemia. - Chest xray cardiomegaly. Left basilar opacity.. - Laboratory data: WBC 6.1. Hemoglobin 14.1. Platelet count 159. Sodium 138. Potassium 4.6. BUN 19. Creatinine 0.97. Lactic acid 2.9. Troponin negative x 3. - Current home cardiac medications include metoprolol succinate 100 mg twice a day, aspirin 81 mg daily, Bumex 1 mg daily. - Most recent echocardiogram obtained in August 2022 revealing ejection fraction 35 to 40%, dyskinetic septum, apex hypokinetic, mild mitral stenosis, mild to moderate mitral regurgitation, mild aortic regurgitation, and mild tricuspid regurgitation -Patient underwent stress testing in November 2020 revealing probably normal myocardial perfusion imaging. There was a fixed defect of moderate size and moderate intensity involving inferior wall of the left ventricle, associated with normal wall motion and likely representing diaphragmatic attenuation. REVIEW OF SYSTEMS: At the time of my exam: CONSTITUTIONAL: Denies fever or chills. HEENT: Denies blurred vision, vision changes, or eye pain. Denies hemoptysis CARDIOVASCULAR: Denies chest pain. Denies orthopnea. Denies PND. Denies palpitations RESPIRATORY: Denies shortness of breath. GASTROINTESTINAL: Denies abdominal pain. Denies nausea or vomiting. HEMATOLOGIC: Denies bleeding disorders. GENITOURINARY: Denies any blood in urine. SKIN: Denies pruitis. Denies rash. PHYSICAL EXAM: VITAL SIGNS: Reviewed. GENERAL: Well-developed in no acute distress. HEENT: Head is normocephalic. Pupils are equal, round. Sclerae anicteric. Mucous membranes of the mouth are moist. Neck supple. No JVD or thyromegaly LUNGS: Respirations even and unlabored. Lungs essentially clear to auscultation bilaterally. HEART: Regular rate and rhythm. S1 and S2 heard. ABDOMEN: Soft. Nondistended. + tenderness EXTREMITIES: Normal range of motion. No clubbing or cyanosis. Peripheral pulses intact. No lower extremity edema NEUROLOGIC: Awake and alert. Oriented x 3. ASSESSMENT: Acute on chronic abdominal pain with nausea and vomiting Chest pain, ruled out, patient denies chest pain Elevated lactic acid Valvular heart disease with previous mitral valve repair in 2000 at [facility] Cardiomyopathy, EF 35 to 40%, Hypertension Hyperlipidemia Paroxysmal atrial fibrillation History of HIV History of alcohol abuse Morbid obesity PLAN: Patient was started on Eliquis by Dr. Morales in the office in August 2023. However this is not on patient's medication list. We will resume Eliquis. Discontinue aspirin Discontinue hydralazine and Imdur Discontinue IV Bumex. Resume oral Bumex 1 mg daily Start Entresto tomorrow Add Aldactone and Farxiga Management of abdominal pain, nausea, and vomiting per primary medicine Obtain records of echo performed recently at [facility] Further recommendations pending patient course Nurse practitioner note has been reviewed by physician. Signing provider agrees with the documented findings, assessment, and plan of care documented by DIGITAL MARKETING SPECIALIST as a scribe. Past Medical History Past Medical History: Asthma, Heart Failure, Fibromyalgia, GERD/Reflux, Hyperten alejandra, Prostate Disorder Additional Past Medical History / Comment(s): Mitral valve disease and a previous mitral valve surgery, possibly repair versus placement, HIV positive, past HTN and recently low blood pressures, BPH, R ankle gout, chronic nausea, bilateral glaucoma, DDD, chronic pain syndrome, chronic low back and bilateral hip pain and occasional cervical pain, DDD, lumbar stenosis/spondylosis, abdominal hernia, previous history of drug overdose. History of Any Multi-Drug Resistant Organisms: None Reported Past Surgical History: Heart Catheterization, Hernia Repair, Orthopedic Surgery Additional Past Surgical History / Comment(s): Mitral valve repair at [facility], R inguinal hernia x2, L inguinal hernia, epidural injections to back, hip injections, RFAs, spinal cord stimulator trial. Past Anesthesia/Blood Transfusion Reactions: No Reported Reaction Past Psychological History: Anxiety, Depression, PTSD Smoking Status: Former smoker Past Alcohol Use History: Occasional Past Drug Use History: Marijuana - Past Family History Father Additional Family Medical History / Comment(s): Father was injured at work and of complication during his hospitalization. Mother Additional Family Medical History / Comment(s): Mother is from alcoholism. Medications and Allergies Home Medications Medication Instructions Recorded Confirmed Type Metoprolol Succinate (ER) [Toprol 100 mg PO BID 11/01/17 10/23/23 History XL] Ondansetron [Zofran ODT] 8 mg PO BID PRN 05/18/18 10/23/23 History Isosorbide Mononitrate ER [Imdur] 30 mg PO DAILY 04/17/19 10/23/23 History Aspirin EC [Ecotrin Low Dose] 81 mg PO DAILY 09/07/21 10/23/23 History Bictegrav/Emtricit/Tenofov Ala 1 tab PO DAILY 09/07/21 10/23/23 History [Biktarvy 50-200-25 mg Tablet] Bumetanide [BUMEX] 1 mg PO DAILY 09/07/21 10/23/23 History Darunavir/Cobicistat [Prezcobix 1 tab PO DAILY 09/07/22 10/23/23 History 800 mg-150 mg Tablet] Levothyroxine Sodium [Synthroid] 75 mcg PO DAILY 09/07/22 10/23/23 History traZODone HCL [Desyrel] 100 mg PO HS 09/07/22 10/23/23 History Ipratropium-Albuterol Nebulize 3 ml INHALATION RT-BID PRN 10/23/23 10/23/23 History [Duoneb 0.5 mg-3 mg/3 ml Soln] Pantoprazole Sodium [Protonix] 40 mg PO DAILY 10/23/23 10/23/23 History oxyCODONE-APAP 5-325MG [Percocet 1 tab PO TID PRN 10/23/23 10/23/23 History 5-325 mg] Allergies Allergy/AdvReac Type Severity Reaction Status Date / Time abacavir [From Ziagen] Allergy Anaphylaxis Verified 10/23/23 08:24 efavirenz [From Sustiva] Allergy Anaphylaxis Verified 10/23/23 08:24 levofloxacin Allergy Itching Verified 10/23/23 08:24 hydrocodone AdvReac Rapid Verified 10/23/23 08:24 [From Hysingla ER] Heart Rate morphine AdvReac Itching Verified 10/23/23 08:24 sulfamethoxazole AdvReac HIGH Verified 10/23/23 08:24 [From Bactrim] CREATININE LEVEL trimethoprim [From Bactrim] AdvReac HIGH Verified 10/23/23 08:24 CREATININE Physical Exam Vitals: Vital Signs Temp Pulse Resp BP Pulse Ox 10/23/23 10:30 98.6 F 75 16 120/74 95 10/23/23 06:11 100 10/23/23 06:03 98 10/23/23 05:20 98 16 158/94 97 10/23/23 02:16 97.5 F L 86 18 145/86 100 Intake and Output 10/22/23 10/23/23 10/23/23 22:59 06:59 14:59 Other: Weight 90.718 kg Results 10/23/23 02:45 10/23/23 02:45 Cardiac Enzymes 10/23/23 10/23/23 10/23/23 Range/Units 02:45 02:45 07:09 AST 38 (17-59) U/L Troponin I 0.029 0.025 (0.000-0.034) ng/mL 10/23/23 Range/Units 09:50 AST (17-59) U/L Troponin I 0.024 (0.000-0.034) ng/mL Coagulation 10/23/23 Range/Units 02:45 PT 12.2 (10.0-12.5) sec APTT 26.4 (22.0-30.0) sec CBC 10/23/23 Range/Units 02:45 WBC 6.1 (3.8-10.6) k/uL RBC 4.51 (4.30-5.90) m/uL Hgb 14.1 (13.0-17.5) gm/dL Hct 45.4 (39.0-53.0) % Plt Count 159 (150-450) k/uL Comprehensive Metabolic Panel 10/23/23 Range/Units 02:45 Sodium 138 (137-145) mmol/L Potassium 4.6 (3.5-5.1) mmol/L Chloride 106 (98-107) mmol/L Carbon Dioxide 19 L (22-30) mmol/L BUN 19 (9-20) mg/dL Creatinine 0.97 (0.66-1.25) mg/dL Glucose 99 (74-99) mg/dL Calcium 9.1 (8.4-10.2) mg/dL AST 38 (17-59) U/L ALT 12 (4-49) U/L Alkaline Phosphatase 121 (38-126) U/L Total Protein 7.0 (6.3-8.2) g/dL Albumin 3.7 (3.5-5.0) g/dL Current Medications Generic Name Dose Route Start Last Admin Trade Name Freq PRN Reason Stop Dose Admin Albuterol Sulfate 2.5 mg 10/23/23 07:45 Albuterol Nebulized 2.5 Mg/3 Ml INHALATION RT-Q6H PRN Shortness Of Breath Allopurinol 300 mg 10/23/23 09:00 10/23/23 10:33 Allopurinol 300 Mg Tab PO Not Given DAILY ALEX Alprazolam 0.25 mg 10/23/23 07:45 10/23/23 08:12 Alprazolam 0.25 Mg Tab PO 0.25 mg Q6H PRN Administration Anxiety Aspirin 81 mg 10/24/23 09:00 Aspirin 81 Mg PO DAILY [facility] Bumetanide 1 mg 10/23/23 10:00 Bumetanide 0.25 Mg/Ml 4 Ml Vial IVP BID ALEX Colchicine 0.6 mg 10/23/23 09:00 10/23/23 10:05 Colchicine 0.6 Mg Each PO Not Given BID ALEX Enoxaparin Sodium 40 mg 10/24/23 09:00 Enoxaparin 40 Mg/0.4 Ml Syringe SQ DAILY ALEX Hydralazine HCl 50 mg 10/23/23 09:00 10/23/23 10:33 Hydralazine Hcl 50 Mg Tab PO Not Given TID ALEX Hydromorphone HCl 1 mg 10/23/23 08:07 Hydromorphone 1 Mg/Ml 1 Ml Syringe IVP Q6HR PRN Pain Isosorbide Mononitrate 30 mg 10/23/23 09:00 10/23/23 10:34 Isosorbide Mononitrate Er 30 Mg Tab.Er.24h PO Not Given DAILY [facility] Levothyroxine Sodium 75 mcg 10/24/23 06:30 Levothyroxine 75 Mcg Tab PO DAILY@0630 ALEX Metoclopramide HCl 10 mg 10/23/23 08:51 10/23/23 09:06 Metoclopramide 5 Mg/Ml 2 Ml Vial IVP 10 mg Q6HR PRN Administration Vomiting Metoprolol Succinate 100 mg 10/23/23 09:00 10/23/23 10:06 Metoprolol Succinate (Er) 100 Mg Tab.Er.24h PO 100 mg DAILY ALEX Administration Nitroglycerin 0.4 mg 10/23/23 05:25 Nitroglycerin Sl Tabs 0.4 Mg Tab SUBLINGUAL Q5M PRN Chest Pain Non-Formulary Medication 1 tab 10/23/23 09:00 10/23/23 10:08 Bictegrav/Emtricit/Tenofov Ala [Biktarvy 50-200-25 Mg Tablet] PO Not Given DAILY ALEX Non-Formulary Medication 1 tab 10/23/23 09:00 10/23/23 10:08 Darunavir/Cobicistat [Prezcobix 800 Mg-150 Mg Tablet] PO Not Given DAILY ALEX Ondansetron HCl 4 mg 10/23/23 08:07 10/23/23 08:12 Ondansetron 4 Mg/2 Ml Vial IVP 4 mg Q6HR PRN Administration Nausea And Vomiting Oxycodone/Acetaminophen 1 each 10/23/23 07:45 Oxycodone-Apap 7.5-325mg 1 Each Tab PO Q6HR PRN Breakthrough Pain Pantoprazole Sodium 40 mg 10/24/23 09:00 Pantoprazole 40 Mg/10 Ml Vial IVP DAILY ALEX Sucralfate 1 gm 10/23/23 10:00 10/23/23 10:35 Sucralfate 1 Gm Tab PO 1 gm AC-BID ALEX Administration Trazodone HCl 100 mg 10/23/23 21:00 Trazodone Hcl 100 Mg Tab PO HS ALEX Intake and Output 10/22/23 10/23/23 10/23/23 22:59 06:59 14:59 Other: Weight 90.718 kg 10/23/23 02:45 10/23/23 02:45
[2023-10-23] MEDS: SPIRONOLACTONE 25 MG TAB PO SCH (12:16)
--- NOTE | 2023-10-23 13:07 | US ---
EXAMINATION TYPE: US gallbladder, US abdomen (ascites) limited DATE OF EXAM: 10/23/2023 COMPARISON: NONE CLINICAL INDICATION: Male, 63 years old with history of Abnormal CT; N/V TECHNIQUE: Multiple sonographic images of the right upper quadrant are obtained. Additional scanning of the 4 abdominal quadrants for assessment of ascites. FINDINGS: EXAM MEASUREMENTS: Liver Length: 22.6 cm Gallbladder Wall: 0.4 cm CBD: 7.6 mm Right Kidney: 10.4 x 4.7 x 5.0 cm Pancreas: portions seen appear wnl Liver: enlarged Gallbladder: There is mild circumference or wall thickening. No hydropic change, surrounding fluid, or shadowing stone. Evidence for sonographic Galeana's sign: no, had medication CBD: Borderline to mildly dilated. Right Kidney: wnl In addition, there is mild to moderate abdominal ascites throughout. COMBINED IMPRESSION: 1. Hepatomegaly at 22.6 cm with moderate hepatic steatosis. Correlate with LFTs, lipid profile, and p atient risk factors. 2. Mild gallbladder wall thickening is nonspecific and may be seen with third spacing/fluid overload state. No gallstones or other suspicious changes. 3. Bile duct borderline to mildly dilated at 7.6 mm. This may be chronic for the patient. Correlate w ith alkaline phosphatase and bilirubin levels. 4. Mild to moderate abdominal ascites throughout.
[2023-10-23] MEDS: oxyCODONE-APAP 7.5-325MG 1 EACH TAB PO PRN (15:45)
[2023-10-23] MEDS: ALBUTEROL NEBULIZED 2.5 MG/3 ML INHALATION PRN (15:51)
[2023-10-23] MEDS: BUMETANIDE 0.25 MG/ML 4 ML VIAL IVP SCH (17:20)
[2023-10-23] MEDS: HYDROmorphone 1 MG/ML 1 ML SYRINGE IVP PRN (22:21)
[2023-10-23] MEDS: traZODone HCL 100 MG TAB PO SCH (22:22)
[2023-10-23] MEDS: APIXABAN 5 MG TAB PO SCH (22:22)
[2023-10-24] MEDS: LEVOTHYROXINE 75 MCG TAB PO SCH (06:12)
[2023-10-24 06:24] LABS: Glucose,Whole Blood 88 mg/dL (70-110)
[2023-10-24] MEDS ORDERED: ENOXAPARIN 40 MG/0.4 ML SYRINGE SQ SCH (09:00)
[2023-10-24] MEDS ORDERED: ASPIRIN 81 MG PO SCH (09:00)
[2023-10-24] MEDS ORDERED: ASPIRIN 325 MG TAB PO SCH (09:00)
[2023-10-24] MEDS: DAPAGLIFLOZIN PROPANEDIOL 10 MG TABLET PO SCH (09:59)
[2023-10-24] MEDS: PANTOPRAZOLE 40 MG/10 ML VIAL IVP SCH (09:59)
[2023-10-24] MEDS: BUMETANIDE 1 MG TAB PO SCH (10:00)
[2023-10-24] MEDS: SACUBITRIL/VALSARTAN 24 MG-26 MG TABLET PO SCH (10:01)
[2023-10-24 10:51] LABS: Chol/HDL Ratio 3.43 Ratio
--- NOTE | 2023-10-24 11:34 | P.PN ---
Subjective HISTORY OF PRESENT ILLNESS: This is a 63-year-old male with a past medical history significant for HIV, valvular heart disease with previous mitral valve repair in 2000 at [facility], hypertension, hyperlipidemia, paroxysmal atrial fibrillation, alcohol abuse, and morbid obesity. Patient follows in the office with Dr. Morales. We have been asked to see the patient in consultation for chest pain. Patient examined at the bedside the emergency room. Patient states he presented to the hospital for chief complaint of abdominal pain. He states he has been having abdominal pain for the past 2 months. He also reports nausea and vomiting. He was recently at [facility] for similar symptoms. The patient denies having any chest pain. Vital signs are stable. DIAGNOSTICS: - EKG reveals sinus mechanism with no signs of acute ischemia. - Chest xray cardiomegaly. Left basilar opacity.. - Laboratory data: WBC 6.1. Hemoglobin 14.1. Platelet count 159. Sodium 138. Potassium 4.6. BUN 19. Creatinine 0.97. Lactic acid 2.9. Troponin negative x 3. - Current home cardiac medications include metoprolol succinate 100 mg twice a day, aspirin 81 mg daily, Bumex 1 mg daily. - Most recent echocardiogram obtained in August 2022 revealing ejection fraction 35 to 40%, dyskinetic septum, apex hypokinetic, mild mitral stenosis, mild to moderate mitral regurgitation, mild aortic regurgitation, and mild tricuspid regurgitation -Patient underwent stress testing in November 2020 revealing probably normal myocardial perfusion imaging. There was a fixed defect of moderate size and moderate intensity involving inferior wall of the left ventricle, associated with normal wall motion and likely representing diaphragmatic attenuation. 10/24/2023 Patient examined this morning the bedside. Patient denies chest pain or pressure. He denies shortness of breath. He denies any nausea or vomiting at the time of examination. He does report some improvement in his abdominal pain. Vital signs are stable. PHYSICAL EXAM: VITAL SIGNS: Reviewed. GENERAL: Well-developed in no acute distress. HEENT: Head is normocephalic. Pupils are equal, round. Sclerae anicteric. Mucous membranes of the mouth are moist. Neck supple. No JVD or thyromegaly LUNGS: Respirations even and unlabored. Lungs essentially clear to auscultation bilaterally. HEART: Regular rate and rhythm. S1 and S2 heard. ABDOMEN: Soft. Nondistended. + tenderness EXTREMITIES: Normal range of motion. No clubbing or cyanosis. Peripheral pulses intact. No lower extremity edema NEUROLOGIC: Awake and alert. Oriented x 3. ASSESSMENT: Acute on chronic abdominal pain with nausea and vomiting Chest pain, ruled out, patient denies chest pain Elevated lactic acid Valvular heart disease with previous mitral valve repair in 2000 at [facility] Cardiomyopathy, EF 35 to 40%, suspect nonischemic Hypertension Hyperlipidemia Paroxysmal atrial fibrillation History of HIV History of alcohol abuse Morbid obesity PLAN: Continue current cardiac medications Patient is currently stable from a cardiac standpoint We will follow on an as-needed basis. Please reconsult if needed. Nurse practitioner note has been reviewed by physician. Signing provider agrees with the documented findings, assessment, and plan of care documented by SALVAGE WINDER as a scribe. Objective - Vital Signs Vital signs: Vital Signs Temp 97.4 F L 10/24/23 07:00 Pulse 78 10/24/23 09:40 Resp 17 10/24/23 07:00 BP 144/57 10/24/23 07:00 Pulse Ox 97 10/24/23 09:31 FiO2 Intake & Output 10/23/23 10/24/23 10/24/23 18:59 06:59 18:59 Output Total 25 0 Balance -25 0 Weight 102.8 kg Output: Urine 25 0 Uretheral (Ocampo) 0 - Labs CBC & Chem 7: 10/23/23 02:45 10/23/23 02:45 Labs: Abnormal Lab Results - Last 24 Hours (Table) 10/23/23 10/23/23 10/23/23 Range/Units 11:59 15:02 18:11 Plasma Lactic Acid Alexey 2.7 H* 3.4 H* 3.7 H* (0.7-2.0) mmol/L Triglycerides (0.00-149.00) mg/dL 10/23/23 10/24/23 Range/Units 21:07 06:27 Plasma Lactic Acid Alexey 3.1 H* (0.7-2.0) mmol/L Triglycerides 171.00 H (0.00-149.00) mg/dL
--- NOTE | 2023-10-24 13:16 | P.DS ---
Providers Date of admission: 10/23/23 05:28 Expected date of discharge: 10/24/23 Attending physician: Abisai Bruno MD Primary care physician: Girma [facility] Course: 63 year old M with PMH of HIV follows ID at [place], HTN, HFrEF, Gout, COPD, Hypothyroidism presents to the ED with multiple complaints. He complains of intractable N/V that has especially getting worse over the past 3 days. He reports abdominal bloating during this time. He reports left sided chest pain which he relates to heartburn. He reports chronic diarrhea. No changes in meds or diet. He reports increased shortness of breath with little exertion and lower extremity swelling. He follows Dr. Morales as his Manager [employer]. In the ED he underwent extensive evaluation. BP 145/68, HR 86, RR 18, T 97.5F, 100% on RA. CBC, Coag panel, CMP done which showed MCV 100.6, bicarb 19, T. Bili 1.4. Lactic acid 2.9. Amylase 77, Lipase 77. Troponin 0.029. EKG showed sinus rhythm with no ST depression or elevation. CXR left basilar opacity. Patient is admitted for chest pain, rule out ACS, Cardiology evaluation. Troponins trended and ACS ruled out. Cardiology consulted, recommended re- starting Eliquis for history of paroxysmal A-Fib, discontinue ASA/Hydralazin e/Imdur, start Entresto, discontinue IV Bumex and start PO, add Aldactone and Farxiga. CT AP was obtained which showed abdominal mild-mod ascites, cardiomegaly, bilateral pleural effusions, esophagitis. Patient was started on Protonix IV and Carafate, N/V resolved. 10/23 Patient was seen and examined. No more nausea or vomiting. Abdominal pain improved with Dilaudid. He reports stopping Bumex a few weeks ago due to frequent urination. He reports history of drinking one fifth of liquor daily for the past year. Troponins 0.029, 0.025, 0.024. Repeat lactic acid 1.7. Lipid panel TG 171, LDL 82, T. Chol 164. Advised to continue Protonix and Carafate. Advised to quit EtOH. Advised compliance with Bumex. New prescriptions started by Cardiology sent to his pharmacy. Follow up with PCP within 1-2 days and Cardiology within 1 week of discharge. General: non toxic, no distress, appears at stated age Derm: warm, dry Head: atraumatic, normocephalic, symmetric Eyes: EOMI, no lid lag, anicteric sclera Mouth: no lip lesion, mucus membranes moist Cardiovascular: S1S2 reg, no murmur Lungs: CTA bilateral, no rhonchi, no rales , no accessory muscle use Abd: TTP in all 4 quadrants without rebound (improved). Distended. Ext: no gross muscle atrophy, no edema, no contractures Neuro: no focal neuro deficits Psych: Alert, oriented, appropriate affect Discharge Diagnosis: Intractable N/V due to esophagitis Abdominal distension due to ascites Acute on chronic HFrEF Chest pain Lactic acidosis Elevated total bilirubin Paroxysmal A-Fib HIV Gout COPD Hypothyroidism This complex discharge took 35 minutes to complete. Patient Condition at Discharge: Stable Plan - Discharge Summary Discharge Rx Participant: No New Discharge Prescriptions: New Spironolactone [Aldactone] 25 mg PO DAILY #30 tab Sucralfate [Carafate] 1 gm PO AC-BID PRN #60 tab PRN Reason: Heartburn Apixaban [Eliquis] 5 mg PO BID #60 tab Sacubitril/Valsartan [Entresto 24 mg-26 mg Tablet] 1 each PO BID #60 tab Dapagliflozin Propanediol [Farxiga] 10 mg PO DAILY #30 tab Metoprolol Succinate (ER) [Toprol XL] 100 mg PO DAILY #30 tab oxyCODONE-APAP 7.5-325MG [Percocet 7.5-325 mg] 1 each PO Q4HR PRN #18 tab PRN Reason: Breakthrough Pain Continue Ondansetron [Zofran ODT] 8 mg PO BID PRN PRN Reason: Nausea And Vomiting Levothyroxine Sodium [Synthroid] 75 mcg PO DAILY traZODone HCL [Desyrel] 100 mg PO HS Darunavir/Cobicistat [Prezcobix 800 mg-150 mg Tablet] 1 tab PO DAILY Ipratropium-Albuterol Nebulize [Duoneb 0.5 mg-3 mg/3 ml Soln] 3 ml INHALATION RT-BID PRN PRN Reason: Shortness Of Breath Bumetanide [BUMEX] 1 mg PO DAILY #30 tab Pantoprazole Sodium [Protonix] 40 mg PO DAILY #30 tab Bictegrav/Emtricit/Tenofov Ala [Biktarvy 50-200-25 mg Tablet] 1 tab PO DAILY Discontinued Metoprolol Succinate (ER) [Toprol XL] 100 mg PO BID Isosorbide Mononitrate ER [Imdur] 30 mg PO DAILY Aspirin EC [Ecotrin Low Dose] 81 mg PO DAILY oxyCODONE-APAP 5-325MG [Percocet 5-325 mg] 1 tab PO TID PRN PRN Reason: Pain Discharge Medication List Ondansetron [Zofran ODT] 8 mg PO BID PRN 05/18/18 [History] Bictegrav/Emtricit/Tenofov Ala [Biktarvy 50-200-25 mg Tablet] 1 tab PO DAILY 09/07/21 [History] Darunavir/Cobicistat [Prezcobix 800 mg-150 mg Tablet] 1 tab PO DAILY 09/07/22 [History] Levothyroxine Sodium [Synthroid] 75 mcg PO DAILY 09/07/22 [History] traZODone HCL [Desyrel] 100 mg PO HS 09/07/22 [History] Ipratropium-Albuterol Nebulize [Duoneb 0.5 mg-3 mg/3 ml Soln] 3 ml INHALATION RT-BID PRN 10/23/23 [History] Apixaban [Eliquis] 5 mg PO BID #60 tab 10/24/23 [Rx] Bumetanide [BUMEX] 1 mg PO DAILY #30 tab 10/24/23 [Rx] Dapagliflozin Propanediol [Farxiga] 10 mg PO DAILY #30 tab 10/24/23 [Rx] Metoprolol Succinate (ER) [Toprol XL] 100 mg PO DAILY #30 tab 10/24/23 [Rx] Pantoprazole Sodium [Protonix] 40 mg PO DAILY #30 tab 10/24/23 [Rx] Sacubitril/Valsartan [Entresto 24 mg-26 mg Tablet] 1 each PO BID #60 tab 10/24/23 [Rx] Spironolactone [Aldactone] 25 mg PO DAILY #30 tab 10/24/23 [Rx] Sucralfate [Carafate] 1 gm PO AC-BID PRN #60 tab 10/24/23 [Rx] oxyCODONE-APAP 7.5-325MG [Percocet 7.5-325 mg] 1 each PO Q4HR PRN #18 tab 10/24/23 [Rx] Follow up Appointment(s)/Referral(s): Sergo Morales MD [STAFF PHYSICIAN] - 1 Week Girma Malone MD [Primary Care Provider] - 1-2 days Activity/Diet/Wound Care/Special Instructions: diet: cardiac, 1.5L fluid restriction Discharge Disposition: HOME SELF-CARE
[2023-10-24 15:28] VITALS: BP 112/64; PULSE 60; RESP 16; TEMP 97.5
[2023-10-24] MEDS ORDERED: DARUNAVIR PO SCH ×2 (21:00)
[2023-10-24] MEDS ORDERED: [UNRECOGNIZED DRUG - OTHER] PO SCH (21:00)
[2023-10-24] MEDS ORDERED: [UNRECOGNIZED DRUG - OTHER] PO SCH (21:00)
[2023-10-24] MEDS ORDERED: COBICISTAT PO SCH ×2 (21:00)
== END 2023-10-24 16:43 | disposition home or self-care (01) ==
LOC: EC 02:15 → UNDOADMOB 05:27 → 6NMEDSUR 05:27 → INTOOBSV 05:28 → OBSVTOIN 05:28 → 4SSUR 05:28 → 6NMEDSUR 06:59 → EC 18:28 → UNDODISIN 10-24 16:43
PROVIDERS: ADMIT Internal Medicine; ATTEND Internal Medicine
DX: K20.90 Esophagitis, unspecified without bleeding (principal); I11.0 Hypertensive heart disease with heart failure; I50.23 Acute on chronic systolic (congestive) heart failure; R18.8 Other ascites; R07.9 Chest pain, unspecified; R10.9 Unspecified abdominal pain; R11.2 Nausea with vomiting, unspecified; E87.20 Acidosis, unspecified; E80.6 Other disorders of bilirubin metabolism; B20 Human immunodeficiency virus [HIV] disease; M10.9 Gout, unspecified; K21.9 Gastro-esophageal reflux disease without esophagitis; G89.4 Chronic pain syndrome; F41.9 Anxiety disorder, unspecified; J44.9 Chronic obstructive pulmonary disease, unspecified; E03.9 Hypothyroidism, unspecified; F32.A Depression, unspecified; I48.0 Paroxysmal atrial fibrillation; F10.10 Alcohol abuse, uncomplicated; I42.9 Cardiomyopathy, unspecified; E78.5 Hyperlipidemia, unspecified; E66.01 Morbid (severe) obesity due to excess calories; Z68.35 Body mass index [BMI] 35.0-35.9, adult; Z87.891 Personal history of nicotine dependence; Z79.82 Long term (current) use of aspirin; Z79.890 Hormone replacement therapy; Z79.899 Other long term (current) drug therapy; Z88.1 Allergy status to other antibiotic agents; Z88.2 Allergy status to sulfonamides; Z88.5 Allergy status to narcotic agent
CPT/HCPCS: 36415; 71046; 74176; 76705; 80053; 80061; 82150; 83605; 83690; 84484; 85025; 85610; 85730; 87040; 93005; 94640; 94760; 96361; 96365; 96366; 96375; 96376; 99285

== ENCOUNTER → 2023-12-06 | Outpatient (CLI) | payer MEDICARE, OTHER ==
[2023-12-06 16:11] LABS: Partial Thromboplastin Time 27.2 sec (22.0-30.0); Prothrombin Time 10.5 sec (10.0-12.5)
[2023-12-06 19:29] LABS: ALT 10 U/L (10-49); AST 23 U/L (14-35); Albumin 4.3 g/dL (3.8-4.9); Albumin/Globulin Ratio 1.43 Ratio (1.60-3.17); Alkaline Phosphatase 140 U/L (41-126); BUN/Creat Ratio 16.38 Ratio (12.00-20.00); Blood Urea Nitrogen 21.3 mg/dL (9.0-27.0); Calcium 9.9 mg/dL (8.7-10.3); Carbon Dioxide 22.9 mmol/L (21.6-31.8); Chloride 98 mmol/L (96-109); Glucose 160 mg/dL (70-110); Sodium 134 mmol/L (135-145); Total Bilirubin 0.8 mg/dL (0.3-1.2); Total Protein 7.3 g/dL (6.2-8.2)
[2023-12-06 19:45] LABS: HGB 14.8 g/dL (13.0-17.0); MCH 30.1 pg (27.0-32.0); MCHC 32.9 g/dL (32.0-37.0); MCV 91.6 FL (80.0-97.0); Mean Platelet Volume 12.4 FL (9.5-12.2); NRBC Per 100 WBC 0 X 10*3/uL (0.00-0.01); Platelet Count 170 X 10*3/uL (140-440); RBC 4.91 X 10*6/uL (4.40-5.60); RDW 16.5 % (11.5-14.5); WBC 4.62 X 10*3/uL (4.50-10.00)
== END | disposition home or self-care (01) ==
LOC: LABPAT 14:33
PROVIDERS: ATTEND Orthopaedic Surgery
DX: Z01.818 Encounter for other preprocedural examination (principal); M16.12 Unilateral primary osteoarthritis, left hip; Z22.322 Carrier or suspected carrier of Methicillin resistant Staphylococcus aureus; R94.31 Abnormal electrocardiogram [ECG] [EKG]
CPT/HCPCS: 80053; 85027; 85610; 85730; 86850; 86900; 86901; 87070; 93005

== ENCOUNTER 2023-12-27 09:18 | Emergency (ER) | payer MEDICARE, OTHER ==
[2023-12-27 09:29] VITALS: TEMP 97.9
[2023-12-27] MEDS: ORPHENADRINE 30 MG/ML 2 ML VIAL IM STA (10:27)
[2023-12-27] MEDS: KETOROLAC 15 MG/ML 1 ML VIAL IM STA (10:28)
--- NOTE | 2023-12-27 10:30 | ED ---
Psych HPI <IsmaeldeejayOdilon - Last Filed: 12/27/23 18:40> - General Source: patient, EMS, RN notes reviewed Mode of arrival: EMS Limitations: no limitations <Joss Contreras - Last Filed: 12/31/23 06:38> - General Chief Complaint: Psychiatric Symptoms Stated Complaint: L Hip Pain Time Seen by Provider: 12/27/23 09:20 - History of Present Illness Initial Comments: 63-year-old male presents emergency department with chief complaint of left hip pain which is chronic. He states that he was scheduled for surgery but it was canceled as he was transferred from [facility] to [facility] for further evaluation in which she was found to have chronic aortic issues. He was cleared from all standpoints at [facility]. He states he has a prescription for Percocet at home but has not filled it. He did not fall on his left hip he states that he tripped and may have strained his left hip. He states because of this pain he is suicidal. Denies any plan. (Joss Contreras) - Related Data Home Medications Medication Instructions Recorded Confirmed Ondansetron [Zofran ODT] 8 mg PO BID PRN 05/18/18 12/27/23 Bictegrav/Emtricit/Tenofov Ala 1 tab PO DAILY 09/07/21 12/27/23 [Biktarvy 50-200-25 mg Tablet] Darunavir/Cobicistat [Prezcobix 1 tab PO DAILY 09/07/22 12/27/23 800 mg-150 mg Tablet] Ipratropium-Albuterol Nebulize 3 ml INHALATION RT-BID PRN 10/23/23 12/27/23 [Duoneb 0.5 mg-3 mg/3 ml Soln] Albuterol Sulfate [Albuterol 1 - 2 puff PO Q6H PRN 12/27/23 12/27/23 Sulfate Hfa] Apixaban [Eliquis] 2.5 mg PO BID 12/27/23 12/27/23 Empagliflozin [Jardiance] 10 mg PO DAILY 12/27/23 12/27/23 Gabapentin 600 mg PO HS 12/27/23 12/27/23 Levothyroxine Sodium [Synthroid] 175 mcg PO DAILY 12/27/23 12/27/23 Rosuvastatin Calcium [Crestor] 5 mg PO HS 12/27/23 12/27/23 Sacubitril/Valsartan [Entresto 24 1 tab PO BID 12/27/23 12/27/23 mg-26 mg Tablet] Tamsulosin HCl [Flomax] 0.4 mg PO HS 12/27/23 12/27/23 oxyCODONE-APAP 10-325MG [Percocet 1 tab PO QID 12/27/23 12/27/23 10-325 mg] Previous Rx's Medication Instructions Recorded Bumetanide [BUMEX] 1 mg PO DAILY #30 tab 10/24/23 Metoprolol Succinate (ER) [Toprol 100 mg PO DAILY #30 tab 10/24/23 XL] Spironolactone [Aldactone] 25 mg PO DAILY #30 tab 10/24/23 Allergies Allergy/AdvReac Type Severity Reaction Status Date / Time abacavir [From Ziagen] Allergy Anaphylaxis Verified 12/27/23 14:23 efavirenz [From Sustiva] Allergy Anaphylaxis Verified 12/27/23 14:23 levofloxacin Allergy Itching Verified 12/27/23 14:23 hydrocodone AdvReac Rapid Verified 12/27/23 14:23 [From Hysingla ER] Heart Rate morphine AdvReac Itching Verified 12/27/23 14:23 sulfamethoxazole AdvReac HIGH Verified 12/27/23 14:23 [From Bactrim] CREATININE LEVEL trimethoprim [From Bactrim] AdvReac HIGH Verified 12/27/23 14:23 CREATININE Review of Systems ROS Other: All systems not noted in ROS Statement are negative. <Odilon Bran - Last Filed: 12/27/23 18:40> ROS Other: All systems not noted in ROS Statement are negative. <Joss Contreras - Last Filed: 12/31/23 06:38> ROS Statement: Those systems with pertinent positive or pertinent negative responses have been documented in the HPI. Past Medical History Past Medical History: Asthma, Heart Failure, Fibromyalgia, GERD/Reflux, Hypertension, Prostate Disorder Additional Past Medical History / Comment(s): Mitral valve disease and a previous mitral valve surgery repair HIV positive, past HTN and recently low blood pressures, BPH, R ankle gout, chronic nausea, bilateral glaucoma, DDD, chronic pain syndrome, chronic low back and bilateral hip pain and occasional cervical pain, DDD, lumbar stenosis/spondylosis, abdominal hernia, previous history of drug overdose. PTSD History of Any Multi-Drug Resistant Organisms: None Reported Past Surgical History: Heart Catheterization, Hernia Repair Additional Past Surgical History / Comment(s): Mitral valve repair at [facility], R inguinal hernia x2, L inguinal hernia, epidural injections to back, hip injections, RFAs, spinal cord stimulator trial. Past Anesthesia/Blood Transfusion Reactions: No Reported Reaction Past Psychological History: Anxiety, Depression, PTSD Smoking Status: Former smoker Past Alcohol Use History: Occasional Past Drug Use History: Marijuana, Prescription Drug Abuse - Past Family History Father History Unknown: Yes Additional Family Medical History / Comment(s): Father was injured at work and of complication during his hospitalization. Mother Additional Family Medical History / Comment(s): Mother is from alcoholism. Brother(s) Additional Family Medical History / Comment(s): alcohol and HF <Joss Contreras - Last Filed: 12/31/23 06:38> General Exam Limitations: no limitations General appearance: alert, in no apparent distress Head exam: Present: atraumatic, normocephalic, normal inspection ENT exam: Present: normal exam, mucous membranes moist Neck exam: Present: normal inspection, full ROM. Absent: tenderness, meningismus, lymphadenopathy Respiratory exam: Present: normal lung sounds bilaterally. Absent: respiratory distress, wheezes, rales, rhonchi, stridor Cardiovascular Exam: Present: regular rate, normal rhythm, normal heart sounds. Absent: systolic murmur, diastolic murmur, rubs, gallop, clicks GI/Abdominal exam: Present: soft, normal bowel sounds. Absent: distended, tenderness, guarding, rebound, rigid Extremities exam: Present: other (Left hip tenderness, pain with range of motion neurovascular intact) Neurological exam: Present: reflexes normal. Absent: motor sensory deficit Psychiatric exam: Present: flat affect <Joss Contreras - Last Filed: 12/31/23 06:38> Course Vital Signs 12/27/23 12/27/23 09:22 19:04 Temperature 97.9 F Pulse Rate 71 92 Respiratory 17 18 Rate Blood Pressure 162/81 165/89 O2 Sat by Pulse 100 97 Oximetry Medical Decision Making <Odilon Bran - Last Filed: 12/27/23 18:40> <Joss Contreras - Last Filed: 12/31/23 06:38> - Medical Decision Making Was patient admitted / discharged? Hospital course, mention meds given and route, prescriptions, significant lab abnormalities, going to OR and other pertinent info. @ -[I received this patient as a signout pending the EPS evaluation. After they had seen the patient and discussed with the psychiatrist, the patient deemed stable for continuing outpatient care. They developed safety plan which the patient agreed with and patient will be discharged, with instructions to return if any worsening or if there is any problem with the follow-up plan. Undiagnosed new problem with uncertain prognosis? @ -[No] Drug Therapy requiring intensive monitoring for toxicity (Heparin, Nitro, Insulin, Cardizem)? @ -[No] Were any procedures done? @ -[No] Diagnosis/symptom? @ -[Mood disorder, acute Acute, or Chronic, or Acute on Chronic? @ -[Acute Uncomplicated (without systemic symptoms) or Complicated (systemic symptoms)? @ -[Uncomplicated Side effects of treatment? @ -[No] Exacerbation, Progression, or Severe Exacerbation? @ -[No] Poses a threat to life or bodily function? How? (Chest pain, [place], [place], pneumonia, PE, COPD, DKA, ARF, appy, cholecystitis, CVA, Diverticulitis, Homicidal, Suicidal, threat to staff... and all critical care pts) @ -[No] (Odilon Bran) Was pt. sent in by a medical professional or institution (, PA, ENTERTAINMENT REPORTER, urgent care, hospital, or correction...) When possible be specific @ -No Did you speak to anyone other than the patient for history (EMS, parent, family, police, friend...)? What history was obtained from this source @ -No Did you review nursing and triage notes (agree or disagree)? Why? @ -I reviewed and agree with nursing and triage notes Were old charts reviewed (outside hosp., previous admission, EMS record, old EKG, old radiological studies, urgent care reports/EKG's, correction records)? Report findings @ -No old charts were reviewed Differential Diagnosis (chest pain, altered mental status, abdominal pain women, abdominal pain men, vaginal bleeding, weakness, fever, dyspnea, syncope, headache, dizziness, GI bleed, back pain, seizure, CVA, palpatations, mental health, musculoskeletal)? @ -Differential Mental Health Depression, anxiety, bipolar, psychosis, schizophrenia, borderline personality, situational depression, adjustment disorder, behavioral disorder, brain tumor, malingering, substance abuse, encephalopathy, medication reaction, dementia, hypothyroidism, degenerative neurologic disorder, lupus.... This is not meant to be all-inclusive list EKG interpreted by me (3pts min.). @ -None X-rays interpreted by me (1pt min.). @ -None done CT interpreted by me (1pt min.). @ -None done U/S interpreted by me (1pt. min.). @ -None done What testing was considered but not performed or refused? (CT, X-rays, U/S, labs)? Why? @ -None What meds were considered but not given or refused? Why? @ -None Did you discuss the management of the patient with other professionals (professionals i.e. , PA, ENTERTAINMENT REPORTER, lab, RT, psych nurse, clinical social work aide, budget and policy analyst, teacher, cra officer, manager case management)? Give summary @ -EPS for evaluation of the patient Was smoking cessation discussed for >3mins.? @ -No Was critical care preformed (if so, how long)? @ -No Were there social determinants of health that impacted care today? How? (Homelessness, low income, unemployed, alcoholism, drug addiction, t ransportation, low edu. Level, literacy, decrease access to med. care, long-term, rehab)? @ -No Was there de-escalation of care discussed even if they declined (Discuss DNR or withdrawal of care, Hospice)? DNR status @ -No What co-morbidities impacted this encounter? (DM, HTN, Smoking, COPD, CAD, Cancer, CVA, ARF, Chemo, Hep., AIDS, mental health diagnosis, sleep apnea, morbid obesity)? @ -None Was patient admitted / discharged? Hospital course, mention meds given and route, prescriptions, significant lab abnormalities, going to OR and other pertinent info. @ -Case signed out to Dr. Bran (Joss Contreras) Disposition Is patient prescribed a controlled substance at d/c from ED?: No <Odilon Bran - Last Filed: 12/27/23 18:40> <Joss Contreras - Last Filed: 12/31/23 06:38> Clinical Impression: Mood disorder Disposition: HOME SELF-CARE Condition: Good Instructions (If sedation given, give patient instructions): Mood Disorders (ED) Referrals: None,Stated [Primary Care Provider] - 1-2 days
[2023-12-27 19:05] VITALS: BP 165/89; PULSE 92; RESP 18
== END 2023-12-27 19:05 | disposition home or self-care (01) ==
LOC: EC 09:18
DX: F39 Unspecified mood [affective] disorder (principal); Z87.891 Personal history of nicotine dependence; Z88.1 Allergy status to other antibiotic agents; Z88.2 Allergy status to sulfonamides; Z88.5 Allergy status to narcotic agent; Z88.8 Allergy status to other drugs, medicaments and biological substances
CPT/HCPCS: 82075; 99285; 96372 ×2; J2360; J1885

== ENCOUNTER 2024-02-11 06:04 | Observation (INO) | payer MEDICARE, OTHER ==
[~2024-02-11 06:04] MED LIST: AMPICILLIN-SULBACTAM 3 GM VIAL ONE; HYDROmorphone 1 MG/ML 1 ML SYRINGE ONE; ONDANSETRON 4 MG/2 ML VIAL ONE
[2024-02-11] MEDS ORDERED: HYDROmorphone 1 MG/ML 1 ML SYRINGE ONE ×5 (08:40→23:06)
[2024-02-11] MEDS ORDERED: AMPICILLIN-SULBACTAM 3 GM VIAL ONE ×2 (12:05→17:34)
[2024-02-11] MEDS ORDERED: GABAPENTIN 300 MG CAP ONE ×2 (15:38→23:12)
[2024-02-11] MEDS ORDERED: APIXABAN 5 MG TAB ONE ×2 (15:38→23:11)
[2024-02-11] MEDS ORDERED: SUCRALFATE 1 GM TAB ONE (15:40)
[2024-02-11] MEDS ORDERED: ONDANSETRON 4 MG/2 ML VIAL ONE (16:55)
[2024-02-11] MEDS ORDERED: ATORVASTATIN 10 MG TAB ONE (17:52)
[2024-02-11] MEDS ORDERED: VANCOMYCIN 1,000 MG VIAL ONE (21:00)
[2024-02-11] MEDS ORDERED: VANCOMYCIN 500 MG VIAL ONE (21:00)
[2024-02-11] MEDS ORDERED: SODIUM CHLORIDE 0.9% 250 ML BAG ONE (21:00)
[2024-02-12] MEDS ORDERED: HYDROmorphone 1 MG/ML 1 ML SYRINGE ONE ×7 (02:59→22:02)
[2024-02-12] MEDS ORDERED: AMPICILLIN-SULBACTAM 3 GM VIAL ONE ×3 (05:57→18:36)
[2024-02-12] MEDS ORDERED: SUCRALFATE 1 GM TAB ONE (07:38)
[2024-02-12] MEDS ORDERED: LEVOTHYROXINE 75 MCG TAB ONE (07:38)
[2024-02-12] MEDS ORDERED: APIXABAN 5 MG TAB ONE (07:39)
[2024-02-12] MEDS ORDERED: SPIRONOLACTONE 25 MG TAB ONE (07:39)
[2024-02-12] MEDS ORDERED: ATORVASTATIN 10 MG TAB ONE (07:39)
[2024-02-12] MEDS ORDERED: APIXABAN 2.5 MG TABLET ONE (07:39)
[2024-02-12] MEDS ORDERED: GABAPENTIN 300 MG CAP ONE ×4 (07:49→22:03)
[2024-02-12] MEDS ORDERED: METOPROLOL SUCCINATE (ER) 50 MG TAB.ER.24H PO ONE (07:56)
[2024-02-12] MEDS ORDERED: METOPROLOL SUCCINATE (ER) 25 MG TAB.ER.24H PO ONE (08:01)
[2024-02-12] MEDS ORDERED: ONDANSETRON 4 MG/2 ML VIAL ONE (13:01)
[2024-02-12] MEDS ORDERED: LOPERAMIDE 2 MG CAP ONE (18:36)
[2024-02-12] MEDS ORDERED: VANCOMYCIN 1,000 MG VIAL ONE (23:59)
[2024-02-12] MEDS ORDERED: SODIUM CHLORIDE 0.9% 100 ML BAG IV ONE (23:59)
[2024-02-12] MEDS ORDERED: SODIUM CHLORIDE 0.9% 250 ML BAG ONE (23:59)
[2024-02-13] MEDS ORDERED: AMPICILLIN-SULBACTAM 3 GM VIAL ONE ×3 (01:17→23:35)
[2024-02-13] MEDS ORDERED: HYDROmorphone 1 MG/ML 1 ML SYRINGE ONE ×6 (01:21→21:25)
[2024-02-13] MEDS ORDERED: LEVOTHYROXINE 75 MCG TAB ONE (06:02)
[2024-02-13] MEDS ORDERED: LOPERAMIDE 2 MG CAP ONE ×2 (06:40→21:59)
[2024-02-13] MEDS ORDERED: METOPROLOL SUCCINATE (ER) 50 MG TAB.ER.24H PO ONE ×2 (08:08→08:47)
[2024-02-13] MEDS ORDERED: PANTOPRAZOLE 40 MG TABLET PO ONE (08:09)
[2024-02-13] MEDS ORDERED: ASPIRIN 81 MG ONE (08:09)
[2024-02-13] MEDS ORDERED: metFORMIN 500 MG TAB ONE (08:09)
[2024-02-13] MEDS ORDERED: ATORVASTATIN 10 MG TAB ONE ×2 (08:09→08:11)
[2024-02-13] MEDS ORDERED: levETIRAcetam 500 MG TAB ONE (08:09)
[2024-02-13] MEDS ORDERED: APIXABAN 5 MG TAB ONE (08:28)
[2024-02-13] MEDS ORDERED: METOPROLOL SUCCINATE (ER) 25 MG TAB.ER.24H PO ONE (08:47)
[2024-02-13] MEDS ORDERED: GABAPENTIN 300 MG CAP ONE ×3 (09:48→21:25)
[2024-02-13] MEDS ORDERED: APIXABAN 2.5 MG TABLET ONE (21:24)
[2024-02-13] MEDS ORDERED: VANCOMYCIN 500 MG VIAL ONE (23:59)
[2024-02-13] MEDS ORDERED: SODIUM CHLORIDE 0.9% 250 ML BAG ONE (23:59)
[2024-02-13] MEDS ORDERED: SODIUM CHLORIDE 0.9% 100 ML BAG IV ONE (23:59)
[2024-02-13] MEDS ORDERED: VANCOMYCIN 1,000 MG VIAL ONE (23:59)
[2024-02-14] MEDS ORDERED: HYDROmorphone 1 MG/ML 1 ML SYRINGE ONE ×6 (02:01→20:19)
[2024-02-14] MEDS ORDERED: LEVOTHYROXINE 75 MCG TAB ONE (05:32)
[2024-02-14] MEDS ORDERED: AMPICILLIN-SULBACTAM 3 GM VIAL ONE ×2 (05:32→11:39)
[2024-02-14] MEDS ORDERED: METOPROLOL SUCCINATE (ER) 25 MG TAB.ER.24H PO ONE (07:26)
[2024-02-14] MEDS ORDERED: METOPROLOL SUCCINATE (ER) 50 MG TAB.ER.24H PO ONE (07:26)
[2024-02-14] MEDS ORDERED: ATORVASTATIN 10 MG TAB ONE (07:26)
[2024-02-14] MEDS ORDERED: APIXABAN 2.5 MG TABLET ONE ×2 (07:27→20:14)
[2024-02-14] MEDS ORDERED: GABAPENTIN 300 MG CAP ONE ×3 (07:28→20:16)
[2024-02-14] MEDS ORDERED: LOPERAMIDE 2 MG CAP ONE (13:59)
[2024-02-14] MEDS ORDERED: VANCOMYCIN 1,000 MG VIAL ONE (23:59)
[2024-02-14] MEDS ORDERED: SODIUM CHLORIDE 0.9% 100 ML BAG IV ONE (23:59)
[2024-02-14] MEDS ORDERED: VANCOMYCIN 500 MG VIAL ONE (23:59)
[2024-02-14] MEDS ORDERED: SODIUM CHLORIDE 0.9% 250 ML BAG ONE (23:59)
[2024-02-15] MEDS ORDERED: AMPICILLIN-SULBACTAM 3 GM VIAL ONE ×3 (00:13→13:06)
[2024-02-15] MEDS ORDERED: HYDROmorphone 1 MG/ML 1 ML SYRINGE ONE ×4 (00:14→10:35)
[2024-02-15] MEDS ORDERED: ONDANSETRON 4 MG/2 ML VIAL ONE (01:41)
[2024-02-15] MEDS ORDERED: LOPERAMIDE 2 MG CAP ONE (03:17)
[2024-02-15] MEDS ORDERED: VANCOMYCIN 1,000 MG VIAL ONE (09:00)
[2024-02-15] MEDS ORDERED: VANCOMYCIN 500 MG VIAL ONE (09:00)
[2024-02-15] MEDS ORDERED: SODIUM CHLORIDE 0.9% 100 ML BAG IV ONE (09:00)
[2024-02-15] MEDS ORDERED: SODIUM CHLORIDE 0.9% 250 ML BAG ONE (09:00)
[2024-02-15] MEDS ORDERED: ATORVASTATIN 10 MG TAB ONE (10:17)
[2024-02-15] MEDS ORDERED: SUCRALFATE 1 GM TAB ONE (10:32)
[2024-02-15] MEDS ORDERED: METOPROLOL TARTRATE 50 MG TAB ONE (10:33)
[2024-02-15] MEDS ORDERED: SACUBITRIL/VALSARTAN 24 MG-26 MG TABLET PO ONE (10:33)
[2024-02-15] MEDS ORDERED: SPIRONOLACTONE 25 MG TAB ONE (10:33)
[2024-02-15] MEDS ORDERED: APIXABAN 2.5 MG TABLET ONE (10:33)
[2024-02-15] MEDS ORDERED: GABAPENTIN 300 MG CAP ONE ×2 (10:34→11:05)
--- NOTE | 2024-02-29 14:00 | XR ---
EXAMINATION TYPE: XR ankle complete RT DATE OF EXAM: 02/29/2024 12:58 PM CLINICAL INDICATION: Male, 63 years old with history of PAIN; COMPARISON: None TECHNIQUE: XR ankle complete RT; ankle is imaged in frontal, lateral and oblique projections. FINDINGS: There is no evidence of acute osseous pathology. No evidence of subluxation or dislocation. Kager's fat pad is intact. Soft tissues are within normal limits. No radiopaque foreign bodies are identified . Calcaneal Achilles enthesophyte. IMPRESSION: 1. No evidence of acute fracture.
--- NOTE | 2024-02-29 14:07 | XR ---
EXAMINATION TYPE: XR foot complete RT DATE OF EXAM: 02/29/2024 12:58 PM CLINICAL INDICATION: Male, 63 years old with history of PAIN; COMPARISON: None TECHNIQUE: XR foot complete RT examined in the AP, oblique, and lateral projections. FINDINGS: No evidence of any acute osseous pathology. Multifocal degeneration changes throughout the joints of the foot with osteophyte formation and joint space narrowing. Calcaneal plantar spurring is present. Degeneration changes worse at the first digit metatarsophalangeal joint with joint space narrowing an d osteophyte formation. IMPRESSION: 1. No evidence of acute fracture. 2. Moderate degeneration changes throughout the joints of the foot findings was of the first digit m etatarsophalangeal joint.
--- NOTE | 2024-03-10 09:35 | US ---
EXAM: US Duplex Right Lower Extremity Veins CLINICAL HISTORY: Right leg pain TECHNIQUE: Real-time duplex ultrasound scan of the right lower extremity veins integrating B-mode two dimensional vascular structure, Doppler spectral analysis, color flow Doppler imaging and compression. COMPARISON: None. FINDINGS: Deep veins:Unremarkable. No DVT in the visualized common femoral, femoral, proximal deep femoral or popliteal veins. The veins demonstrate normal color flow, are normally compressible, with normal phasic flow and/or augmentation response. Superficial veins:Unremarkable. No thrombus in the visualized great saphenous vein. Soft tissues:No acute findings. No popliteal cyst. IMPRESSION: No sonographic evidence of DVT in the right lower extremity . Radiologist: Shanae Evans MD, EFRAINR Electronically Signed: 02/11/24 02:05 Study ready at 01:17 and initial results transmitted at 02:05 [facility]
== END 2024-02-15 13:36 | disposition home or self-care (01) ==
LOC: INTOOBSV 06:04 → DISRECOVER 06:04
PROVIDERS: ADMIT Internal Medicine; ATTEND Internal Medicine
DX: M10.9 Gout, unspecified (principal); M13.80 Other specified arthritis, unspecified site; M25.461 Effusion, right knee; R19.7 Diarrhea, unspecified; E78.5 Hyperlipidemia, unspecified; I11.0 Hypertensive heart disease with heart failure; I50.20 Unspecified systolic (congestive) heart failure; B20 Human immunodeficiency virus [HIV] disease; E03.9 Hypothyroidism, unspecified; I48.91 Unspecified atrial fibrillation; G89.29 Other chronic pain; E11.9 Type 2 diabetes mellitus without complications; Z79.899 Other long term (current) drug therapy; Z79.01 Long term (current) use of anticoagulants; Z95.2 Presence of prosthetic heart valve; Z88.2 Allergy status to sulfonamides; Z88.5 Allergy status to narcotic agent; Z88.8 Allergy status to other drugs, medicaments and biological substances
CPT/HCPCS: 85652; 96374; 96375; 96376; 99285

== ENCOUNTER → 2024-03-10 | Outpatient (CLI) | payer MEDICARE, OTHER ==
[2024-03-10 12:16] LABS: Partial Thromboplastin Time 23.7 sec (22.0-30.0); Prothrombin Time 10.6 sec (10.0-12.5)
[2024-03-10 15:31] LABS: HCT 39.3 % (39.6-50.0); HGB 13.2 g/dL (13.0-17.0); MCH 32.4 pg (27.0-32.0); MCHC 33.6 g/dL (32.0-37.0); MCV 96.3 FL (80.0-97.0); Mean Platelet Volume 13.2 FL (9.5-12.2); NRBC Per 100 WBC 0 X 10*3/uL (0.00-0.01); Platelet Count 172 X 10*3/uL (140-440); RBC 4.08 X 10*6/uL (4.40-5.60); RDW 13.5 % (11.5-14.5); WBC 7.51 X 10*3/uL (4.50-10.00)
[2024-03-10 15:52] LABS: ALT 12 U/L (10-49); AST 28 U/L (14-35); Albumin 4.6 g/dL (3.8-4.9); Albumin/Globulin Ratio 1.31 Ratio (1.60-3.17); Alkaline Phosphatase 88 U/L (41-126); BUN/Creat Ratio 19.23 Ratio (12.00-20.00); Calcium 10.1 mg/dL (8.7-10.3); Carbon Dioxide 23.1 mmol/L (21.6-31.8); Chloride 98 mmol/L (96-109); Globulin 3.5 g/dL (1.6-3.3); Glucose 94 mg/dL (70-110); Potassium 4.8 mmol/L (3.5-5.5); Sodium 139 mmol/L (135-145); Total Bilirubin 0.5 mg/dL (0.3-1.2); Total Protein 8.1 g/dL (6.2-8.2)
== END | disposition home or self-care (01) ==
LOC: LABPAT 09:42
PROVIDERS: ATTEND Orthopaedic Surgery
DX: Z01.818 Encounter for other preprocedural examination
CPT/HCPCS: 80053; 85027; 85610; 85730; 86850; 86900; 86901; 87070; 93005

== ENCOUNTER 2024-03-18 09:21 | Observation (INO) | payer MEDICARE, OTHER ==
[2024-03-17 15:42] VITALS: BMI 26.9
[~2024-03-18 09:21] MED LIST changes: -AMPICILLIN-SULBACTAM 3 GM VIAL ONE; -HYDROmorphone 1 MG/ML 1 ML SYRINGE ONE; -ONDANSETRON 4 MG/2 ML VIAL ONE; +TRANEXAMIC 1,000 MG/100ML-NACL 1,000 MG in SALINE 1 100ML.BAG IVPB PRN
[2024-03-18] MEDS: ACETAMINOPHEN TAB 500 MG TAB PO PRN (10:07)
[2024-03-18] MEDS: MELOXICAM 7.5 MG TAB PO PRN (10:08)
[2024-03-18] MEDS: GABAPENTIN 300 MG CAP PO PRN (10:08)
[2024-03-18] MEDS: LACTATED RINGERS 1,000 ML IV SCH (10:09)
[2024-03-18] MEDS: DEXAMETHASONE SOD PHOSPHATE 4 MG/ML 1 ML VIAL IV ONE (10:09)
[2024-03-18] MEDS: IV FLUID CONTINUATION 1,000 ML IV ONE (10:24)
[2024-03-18] MEDS: MIDAZOLAM 2 MG/2 ML VIAL IV PRN (10:44)
[2024-03-18] MEDS ORDERED: MAGNESIUM HYDROXIDE 2,400 MG/30 ML CUP PO PRN (10:56)
[2024-03-18] MEDS ORDERED: HYDROmorphone 0.5 MG/0.5 ML SYRINGE IVP PRN ×2 (10:56)
[2024-03-18] MEDS ORDERED: NALOXONE 0.4 MG/ML 1 ML VIAL IV PRN (10:56)
[2024-03-18] MEDS ORDERED: HYDROcodone/APAP 7.5-325MG 1 EACH TAB PO PRN ×2 (10:59)
[2024-03-18] MEDS ORDERED: PHENYLEPHRINE 10 MG/ML VIAL ONE (11:00)
[2024-03-18] MEDS ORDERED: MIDAZOLAM 2 MG/2 ML VIAL ONE (11:00)
[2024-03-18] MEDS ORDERED: TRANEXAMIC 1,000 MG/100ML-NACL PREMIX BAG ONE (11:00)
[2024-03-18] MEDS ORDERED: DEXAMETHASONE SOD PHOSPHATE 4 MG/ML 1 ML VIAL ONE (11:00)
[2024-03-18] MEDS ORDERED: LIDOCAINE 1% INJ 10MG/ML (20 ML MDV) ONE (11:00)
[2024-03-18] MEDS ORDERED: PROPOFOL 10 MG/ML 20 ML VIAL IV ONE (11:00)
[2024-03-18] MEDS ORDERED: ROPIVACAINE 5 MG/ML 30 ML VIAL ONE (11:00)
[2024-03-18] MEDS ORDERED: fentaNYL (PF) 50 MCG/ML 2 ML AMP ONE (11:00)
[2024-03-18] MEDS: ceFAZolin 1,000 MG in SODIUM CHLORIDE 0.9% 1,000 ML IRRIGATION ONE (11:04)
[2024-03-18] MEDS: ROPIVACAINE 5 MG/ML 30 ML VIAL MISCELLANE ONE ×2 (11:31→12:14)
--- NOTE | 2024-03-18 11:33 | P.ANPRN ---
Procedure Note - Anesthesia - Nerve Block Performed Left Coy Single Time Out Performed: Yes Date of Procedure: 03/18/24 Procedure Start Time: 10:43 Procedure Stop Time: 10:49 Location of Patient: PreOp Indication: Acute Post-Operative Pain, Requested by Surgeon Sedation Type: Sedate with meaningful contact maintained Preparation: Sterile Prep Position: Supine Needle Types: Pajunk Needle Gauge: 21 Ultrasound used to visualize needle placement: Yes Ultrasound used to observe medication spread: Yes Blood Aspirated: No Pain Paresthesia on Injection Noted: No Resistance on Injection: Normal Image Stored and Saved: Yes Events: Uneventful and Well Tolerated (Ropivacaine 0.5% 20 cc plus dexamethasone 4 mg)
--- NOTE | 2024-03-18 12:16 | P.OP ---
Date of Procedure: 03/18/24 Preoperative Diagnosis: Severe osteoarthritis left hip with femoral head collapse Postoperative Diagnosis: Severe osteoarthritis left hip with femoral head collapse Procedure(s) Performed: Left total hip arthroplasty with a direct anterior approach Implants: [employer]hew Polarstem standard size 5 with a collar [employer]hew R3, 3 hole hemispherical acetabular shell, 52 mm [employer]hew Reflection 6.5 mm cancellus screws, 25 mm 2 [employer]hew R3, XLPE 20 acetabular liner [employer] Nephew Oxinium femoral head 36 mm, +0 All components were press-fit. The articulation is Oxinium on polyethylene. Anesthesia: spinal Surgeon: Joss Morocho Glost Kiln Operator #1: Bree Cárdenas Estimated Blood Loss (ml): 400 Pathology: none sent Condition: stable Disposition: PACU Indications for Procedure: After failure of conservative treatment we discussed the surgical and nonsurgical treatment options at length. Patient wishes to proceed with a total hip arthroplasty with a direct anterior approach. Complications specific to this procedure were discussed at length, including but not limited to infection, leg length discrepancy, dislocation, nerve injury, and fracture. Covid-19 was also discussed at length with the patient, and they are aware of the current policies and procedures. The patient was given the option of delaying surgery, but they elect to proceed knowing these risks. Patient is aware of all these complications and informed consent was obtained Operative Findings: The operative findings are consistent with severe osteoarthritis the left hip femoral head collapse Description of Procedure: The patient was seen and evaluated in the preoperative area and the consent was reviewed. The operative site was marked with a skin marker. The patient verified the procedure and operative site. A ANA MARIA block was placed by anesthesia in the preoperative area. The patient was then brought to the operating room and given preoperative antibiotics intravenously. 1 g of Tranexamic acid was also given intravenously. A spinal anesthetic was administered by the anesthesia department. The patient was then placed on the Elrod table with the bony prominences well-padded. The hip area was then prepped with a ChloraPrep solution and draped in the usual sterile fashion. A universal timeout was then performed, which confirmed the patient's name, surgical site, ALLERGIES, and procedure being performed on the consent. Next the incision site was located at 1 cm distal and 4 cm lateral to the anterior superior iliac spine. The skin and subcutaneous tissues were sharply incised. Incision was carefully dissected down to the fascia overlying the tensor fascia stefani muscle. This fascia was then incised in line with the muscle fibers. Care was taken to stay laterally in order to avoid injuring the lateral femoral cutaneous nerve. Next, using blunt finger dissection, the tensor fascia stefani muscle was dissected off its investing fascia. The muscle was then carefully retracted laterally with a cobra retractor over the lateral neck of the femur. Next, the circumflex vessels were identified and cauterized using the Aquamantis device. The anterior hip capsule was then exposed. The capsule was then opened and an inverted T fashion. The retractors were then placed intracapsularly. The retractors were maintained intracapsular throughout the procedure. The proximal femur was then visualized. Fluoroscopic x-rays were then taken in order to evaluate the preoperative leg lengths. A small amount of traction was placed on the leg. The femoral neck was then osteotomized at the appropriate level above the lesser trochanter. A small wedge of bone was then removed from the remaining femoral head. Next, using a corkscrew the femoral head was removed from the acetabulum. On gross visual inspection, the femoral head had complete loss of articular cartilage and multiple periarticular osteophytes. The femoral head was then measured. Attention was then turned to the acetabulum. The acetabulum was exposed and any remaining labrum was excised. Sequential reaming of the acetabulum was performed using fluoroscopic guidance until there was a good bed of bleeding cancellus bone. When the appropriate size was reached, a trial was then placed. The position and fit of the trial was checked with fluoroscopy. The trial was then removed. Then, using fluoroscopic guidance, the final implant was impacted at 20 of anteversion and 40 of abduction, and fully seated in the acetabulum. 2 screws were then placed in the acetabulum. Again fluoroscopy was used to check position of the screws. Next, the liner was then impacted, with a 20 elevated liner located in the anterior superior quadrant. Component locking was confirmed. Attention was then directed to the femur. With the aid of the Elrod table, the femur was externally rotated to approximately 130, extended, and adducted under the opposite leg. A side hook was then placed under the proximal femur, and the side hook elevator was used to elevate the proximal femur while releasing the capsule. Retractors were then placed. A capsular release was performed, as well as a release of the conjoined tendon, which afforded excellent visualization of the proximal femur. Next, a box osteotome was used to lateralize the proximal femur. A dairy hand was then used to locate the femoral canal. Sequential broaching was then performed with appropriate size which afforded excellent fixation in the proximal femur. A trial was then placed with appropriate head and neck, and the hip was gently reduced with the aid of the Elrod table. Fluoroscopy was then used to check position of the components, as well as to evaluate the leg lengths and offset. The leg lengths and offset were measured as closely as possible to ensure stability of the hip. The hip was then gently dislocated and the trials were then removed. Final implants were then impacted and the hip was again reduced. Final fluoroscopic x-rays confirmed that the components were in anatomic position. The leg lengths and offset were measured and were found to coincide with the trial measurements. The hip was also taken through range of motion, and found to be stable. The hip was then copiously irrigated with antibiotic solution with pulsatile lavage. The hip was then irrigated with Irrisept solution. The soft tissues were then injected with a ropivacaine solution. A second dose of 1 g of Tranexamic acid was also given intravenously. The fascia was then closed with 2-0 strata fix suture. The subcutaneous tissue was closed with 3-0 Vicryl. The subcuticular tissue was closed with 3-0 strata fix suture. The skin was then closed with Exofin skin glue. After the glue and dried, and Optifoam silver impregnated dressing was applied. The patient was then transferred to the recovery room in stable condition. The collections assistant BONNIE Persaud was required due to the complexity of surgery, and the need for skilled surgical endoscopist for positioning, draping, exposure, retraction, and closure of the wound.
[2024-03-18] MEDS: LACTATED RINGERS 1,000 ML IV ONE (12:25)
--- NOTE | 2024-03-18 13:09 | XR ---
EXAMINATION TYPE: XR Hip Limited LT DATE OF EXAM: 03/18/2024 12:49 PM CLINICAL INDICATION: Male, 63 years old with history of Status post hip surgery, assess surgical aida pineda; COMPARISON: None. TECHNIQUE: XR Hip Limited LT; hip was examined in the frontal projections FINDINGS: Post arthroplasty changes, hardware is intact, alignment is appropriate. No evidence of fra cture. Postoperative changes of the soft tissues with subcutaneous gas. No evidence of any acute osse ous pathology or joint dislocation. IMPRESSION: Hip arthroplasty with hardware intact and in appropriate alignment. No acute fracture. [facility], , 03/18/2024 1:07 PM
[2024-03-18] MEDS: HYDROmorphone 0.5 MG/0.5 ML SYRINGE IVP PRN (14:25)
[2024-03-18] MEDS: SODIUM CHLORIDE 0.9% 1,000 ML IV ONE (15:46)
[2024-03-18] MEDS ORDERED: IPRATROPIUM-ALBUTEROL 3 ML NEB INHALATION PRN (16:43)
[2024-03-18] MEDS ORDERED: hydrOXYzine HCL 10 MG TAB PO PRN (16:43)
[2024-03-18] MEDS ORDERED: ALBUTEROL NEBULIZED 2.5 MG/3 ML INHALATION PRN (16:43)
[2024-03-18] MEDS: ONDANSETRON 4 MG/2 ML VIAL IVP ONE (16:48)
[2024-03-18] MEDS: SODIUM CHLORIDE 0.9% 1,000 ML IV SCH (16:49)
[2024-03-18] MEDS ORDERED: DEXTROSE 50% SYRINGE 50 ML IVP PRN ×2 (16:54)
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
[2024-03-18] MEDS: HYDROmorphone 1 MG/ML 1 ML SYRINGE IVP PRN (17:00)
[2024-03-18] MEDS: INSULIN ASPART (NovoLOG) 100 UNIT/ML VIAL SQ SCH (17:40)
[2024-03-18] MEDS: oxyCODONE-APAP 10-325MG 1 EACH TAB PO PRN (18:38)
[2024-03-18] MEDS: TAMSULOSIN 0.4 MG CAP.ER.24H PO SCH (22:47)
[2024-03-18] MEDS: SACUBITRIL/VALSARTAN 24 MG-26 MG TABLET PO SCH (22:47)
[2024-03-18] MEDS: GABAPENTIN 300 MG CAP PO SCH (22:47)
[2024-03-18] MEDS: SENNOSIDES-DOCUSATE SODIUM 1 EACH TAB PO SCH (22:47)
[2024-03-18] MEDS: BIKTARVY PO SCH (22:48)
[2024-03-18] MEDS: PREZCOBIX PO SCH (22:48)
[2024-03-19] MEDS: ONDANSETRON 4 MG/2 ML VIAL IVP PRN
[2024-03-19] MEDS: LEVOTHYROXINE 100 MCG TAB PO SCH (07:56)
[2024-03-19] MEDS ORDERED: DARUNAVIR PO SCH (09:00)
[2024-03-19] MEDS ORDERED: COBICISTAT PO SCH (09:00)
[2024-03-19] MEDS ORDERED: [UNRECOGNIZED DRUG - OTHER] PO SCH (09:00)
[2024-03-19] MEDS ORDERED: NON FORMULARY DRUG (Bictegrav/Emtricit/Tenofov Ala [Biktarvy 50-200-25 Mg Tablet] 1 EACH T PO SCH (09:00)
[2024-03-19 09:01] LABS: Basophils # (A) 0.02 X 10*3/uL (0.00-0.10); Basophils % (A) 0.3 %; Eosinophils # (A) 0 X 10*3/uL (0.04-0.35); Eosinophils % (A) 0 %; HCT 25.4 % (39.6-50.0); HGB 8.5 g/dL (13.0-17.0); Lymphocytes # (A) 1.24 X 10*3/uL (0.90-5.00); Lymphocytes % (A) 19.1 %; MCH 32.2 pg (27.0-32.0); MCHC 33.5 g/dL (32.0-37.0); MCV 96.2 FL (80.0-97.0); Mean Platelet Volume 11.9 FL (9.5-12.2); Monocytes # (A) 0.63 X 10*3/uL (0.20-1.00); Monocytes % (A) 9.7 %; NRBC Per 100 WBC 0 X 10*3/uL (0.00-0.01); Neutrophils # (A) 4.57 X 10*3/uL (1.80-7.70); Neutrophils % (A) 70.4 %; Platelet Count 159 X 10*3/uL (140-440); RBC 2.64 X 10*6/uL (4.40-5.60); RDW 13.9 % (11.5-14.5); WBC 6.49 X 10*3/uL (4.50-10.00)
[2024-03-19] MEDS: ATORVASTATIN 80 MG TAB PO SCH (09:21)
[2024-03-19] MEDS: FENOFIBRATE 54 MG TAB PO SCH (09:21)
[2024-03-19] MEDS: APIXABAN 2.5 MG TABLET PO SCH (09:21)
[2024-03-19] MEDS: METOPROLOL SUCCINATE (ER) 25 MG TAB.ER.24H PO SCH (09:21)
[2024-03-19] MEDS: PANTOPRAZOLE 40 MG TABLET PO SCH (09:21)
[2024-03-19 11:09] LABS: Glucose,Whole Blood 187 mg/dL (70-110)
--- NOTE | 2024-03-19 11:15 | P.PN ---
Subjective Progress Note Date: 03/19/24 This is a 63-year-old male who is status post left total hip arthroplasty. This is postoperative day #1 and patient is seen and evaluated at bedside today. Patient states that he was able to work with physical therapy and his pain is well-controlled. Patient states that he takes Percocet daily at home and also wears a fentanyl patch which are prescribed by his family doctor. Objective - Vital Signs Vital signs: Vital Signs Temp 98.4 F 03/19/24 07:49 Pulse 80 03/19/24 07:49 Resp 17 03/19/24 07:49 BP 148/65 03/19/24 07:49 Pulse Ox 99 03/19/24 07:49 FiO2 Intake & Output 03/18/24 03/19/24 03/19/24 18:59 06:59 18:59 Intake Total 1901 Output Total 400 Balance 1501 Weight 79.4 kg Intake: IV 1901 Output: Estimated Blood Loss 400 Other: Voiding Method Urinal # Voids 2 1 - Exam Vital signs are stable. Patient is in no acute distress and is alert and oriented 3. Calf is soft and nontender to palpation. Dressing is clean, dry, and intact. Patient has full foot and ankle motion without pain or difficulty. Sensation intact. Neurovascular status and circulatory status are intact. - Labs CBC & Chem 7: 03/19/24 05:15 Labs: Abnormal Lab Results - Last 24 Hours (Table) 03/19/24 03/19/24 Range/Units 05:15 11:07 RBC 2.64 L (4.40-5.60) X 10*6/uL Hgb 8.5 L (13.0-17.0) g/dL Hct 25.4 L (39.6-50.0) % MCH 32.2 H (27.0-32.0) pg Eosinophils # 0 L (0.04-0.35) X 10*3/uL POC Glucose (mg/dL) 187 H (70-110) mg/dL Assessment and Plan (1) Osteoarthritis of left hip Current Visit: Yes Status: Acute Code(s): M16.12 - UNILATERAL PRIMARY OSTEOARTHRITIS, LEFT HIP SNOMED Code(s): 431806611721736 (2) S/P total left hip arthroplasty Current Visit: Yes Status: Acute Code(s): Z96.642 - PRESENCE OF LEFT ARTIFICIAL HIP JOINT SNOMED Code(s): 145346571380 Plan: Continue routine postop care and pain control. Continue anticoagulation with Eliquis. Weightbearing as tolerated with a walker Leave dressing in place for 7 days. Appreciate input from internal medicine. Anticipate discharge home with homecare tomorrow.
--- NOTE | 2024-03-19 11:20 | P.PN ---
Subjective Progress Note Date: 03/19/24 [facility] Patient seen this morning. Is denying any acute complaints. He states that he worked with physical therapy and did well Physical exam General: [Alert and oriented, well nourished, no acute distress]. Eye: [PERRL, EOMI, normal conjunctiva]. HENT: [Normocephalic, clear tympanic membranes, normal hearing, moist oral mucosa, no scleral icterus, no sinus tenderness]. Neck: [Supple, non-tender, no carotid bruits, no JVD, no lymphadenopathy]. Lungs: [Clear to auscultation and percussion, non-labored respiration]. Heart: [Normal rate, regular rhythm, no murmur, gallop or edema]. Abdomen: [Soft, non-tender, non-distended, normal bowel sounds, no masses]. Musculoskeletal: [Bandage on the left hip is intact and dry, restricted range of motion of the left lower extremity]. Skin: [Skin is warm, dry and pink, no rashes or lesions]. Neurologic: [Awake, alert, and oriented X3, CN II-XII intact]. Psychiatric: [Cooperative, appropriate mood and affect]. Assessment and plan Acute blood loss anemia Secondary to surgery Patient's hemoglobin baseline is around 13 Hemoglobin this morning is 8.5 Trend CBC Will defer anticoagulation to orthopedic surgery. Patient currently on Eliquis HIV Will continue with Prezcobix and Biktarvy which patient brought from home COPD Continue with inhaler Chronic heart failure with reduced ejection fraction Restart spironolactone 25 mg p.o. daily and Bumex 1 mg p.o. daily Discontinue fluids Continue with metoprolol 75 mg p.o. daily Continue with Entrusto Diabetes mellitus with neuropathy Continue gabapentin Hold Jardiance Sliding scale insulin Levothyroxine Continue with Synthroid GERD Continue Protonix Hyperlipidemia Continue with statin Paroxysmal atrial fibrillation Continue with metoprolol Continue with Eliquis Left hip osteoarthritis Status post left hip arthroplasty Pain management as per your orthopedic surgery management History of alcohol abuse Stable DVT prophylaxis: Eliquis Objective - Vital Signs Vital signs: Vital Signs Temp 98.4 F 03/19/24 07:49 Pulse 80 03/19/24 07:49 Resp 17 03/19/24 07:49 BP 148/65 03/19/24 07:49 Pulse Ox 99 03/19/24 07:49 FiO2 Intake & Output 03/18/24 03/19/24 03/19/24 18:59 06:59 18:59 Intake Total 1901 Output Total 400 Balance 1501 Weight 79.4 kg Intake: IV 1901 Output: Estimated Blood Loss 400 Other: Voiding Method Urinal # Voids 2 1 - Labs CBC & Chem 7: 03/19/24 05:15 Labs: Abnormal Lab Results - Last 24 Hours (Table) 03/19/24 03/19/24 Range/Units 05:15 11:07 RBC 2.64 L (4.40-5.60) X 10*6/uL Hgb 8.5 L (13.0-17.0) g/dL Hct 25.4 L (39.6-50.0) % MCH 32.2 H (27.0-32.0) pg Eosinophils # 0 L (0.04-0.35) X 10*3/uL POC Glucose (mg/dL) 187 H (70-110) mg/dL
[2024-03-19 16:34] LABS: Glucose,Whole Blood 92 mg/dL (70-110)
[2024-03-20 06:19] LABS: Glucose,Whole Blood 170 mg/dL (70-110)
[2024-03-20 08:33] LABS: Basophils # (A) 0.01 X 10*3/uL (0.00-0.10); Basophils % (A) 0.2 %; Eosinophils # (A) 0.03 X 10*3/uL (0.04-0.35); Eosinophils % (A) 0.6 %; HCT 26.3 % (39.6-50.0); HGB 8.6 g/dL (13.0-17.0); Lymphocytes # (A) 1.39 X 10*3/uL (0.90-5.00); Lymphocytes % (A) 25.6 %; MCH 31.6 pg (27.0-32.0); MCHC 32.7 g/dL (32.0-37.0); MCV 96.7 FL (80.0-97.0); Mean Platelet Volume 11.8 FL (9.5-12.2); Monocytes # (A) 0.59 X 10*3/uL (0.20-1.00); Monocytes % (A) 10.9 %; NRBC Per 100 WBC 0 X 10*3/uL (0.00-0.01); Neutrophils # (A) 3.37 X 10*3/uL (1.80-7.70); Neutrophils % (A) 62.1 %; Platelet Count 140 X 10*3/uL (140-440); RBC 2.72 X 10*6/uL (4.40-5.60); RDW 14.1 % (11.5-14.5); WBC 5.42 X 10*3/uL (4.50-10.00)
[2024-03-20] MEDS: SPIRONOLACTONE 25 MG TAB PO SCH (08:37)
[2024-03-20] MEDS: BUMETANIDE 1 MG TAB PO SCH (08:38)
[2024-03-20 10:00] VITALS: RESP 18
--- NOTE | 2024-03-20 11:01 | P.PN ---
Subjective Progress Note Date: 03/20/24 HPI Patient states that he has been walking up and down the hallways. His main c omplaint is that he still has a lot of pain and is requesting for refill on his prescriptions for Percocet. Physical exam General examination - Alert and Oriented 3 in NAD Heart - + S1S2 no murmurs Lungs - Clear to auscultation Abdomen soft NT ND +ve BS Extremities - No edema, left hip bandage intact and dry [employer] ANALY[employer] - Moving all 4 extremities spontaneously Psych - Calm and cooperative Assessment and plan Acute blood loss anemia Secondary to surgery Patient's hemoglobin baseline is around 13 Hemoglobin this morning is 8.6. Stable Hemoglobin is stable this morning HIV Will continue with Prezcobix and Biktarvy which patient brought from home COPD Continue with inhaler Chronic heart failure with reduced ejection fraction Restart spironolactone 25 mg p.o. daily and Bumex 1 mg p.o. daily Discontinue fluids Continue with metoprolol 75 mg p.o. daily Continue with Entrusto Diabetes mellitus with neuropathy Continue gabapentin Hold Jardiance Sliding scale insulin Levothyroxine Continue with Synthroid GERD Continue Protonix Hyperlipidemia Continue with statin Paroxysmal atrial fibrillation Continue with metoprolol Continue with Eliquis Left hip osteoarthritis Status post left hip arthroplasty Pain management as per your orthopedic surgery management History of alcohol abuse Stable DVT prophylaxis: Vivian Patient is medically stable for discharge home. Medicine service will sign off. Discharge medication reconciliation completed. Will defer pain medications to primary team. Objective - Vital Signs Vital signs: Vital Signs Temp 98.3 F 03/20/24 07:06 Pulse 68 03/20/24 07:06 Resp 18 03/20/24 07:06 BP 116/62 03/20/24 07:06 Pulse Ox 97 03/20/24 07:06 FiO2 Intake & Output 03/19/24 03/20/24 03/20/24 18:59 06:59 18:59 Output Total 600 Balance -600 Output: Urine 600 Other: Voiding Method Toilet Urinal # Voids 4 2 # Bowel Movements 1 - Labs CBC & Chem 7: 03/20/24 04:46 Labs: Abnormal Lab Results - Last 24 Hours (Table) 03/19/24 03/20/24 03/20/24 Range/Units 11:07 04:46 06:17 RBC 2.72 L (4.40-5.60) X 10*6/uL Hgb 8.6 L (13.0-17.0) g/dL Hct 26.3 L (39.6-50.0) % Eosinophils # 0.03 L (0.04-0.35) X 10*3/uL POC Glucose (mg/dL) 187 H 170 H (70-110) mg/dL
[2024-03-20 11:58] LABS: Glucose,Whole Blood 107 mg/dL (70-110)
--- NOTE | 2024-03-20 14:18 | P.DS ---
Providers Date of admission: 03/18/24 09:22 Expected date of discharge: 03/20/24 Attending physician: Joss Morocho Consults: 03/18/24 10:56 Consult Physician Routine Consulting Provider: Brian Magdaleno Consult Reason/Comments: medical management Do you want consulting provider notified?: Yes Primary care physician: Girma Malone - Discharge Diagnosis(es) (1) Osteoarthritis of left hip Current Visit: Yes Status: Acute (2) S/P total left hip arthroplasty Current Visit: Yes Status: Acute Hospital Course: This is a 63-year-old male with known history of degenerative arthritis of the left hip. The patient presented for evaluation as an outpatient. After discussion and consideration patient elects to proceed with total hip arthroplasty. The patient is seen preoperatively by Dr. Morocho and medically cleared for surgery by their primary care physician. Patient is admitted to [facility] on 03/18/2024 for total hip arthroplasty. The procedure is performed without complication or sequelae. The patient is doing well postoperatively. Labs and vital signs are stable on day of discharge. Pain management was consulted for postoperative pain. On day of discharge patient's hip incision is healing well. There is minimal erythema. There is no drainage noted at this time. There is minimal soft tissue swelling to the hip and thigh. Patient has full foot and ankle motion without difficulty or pain. Calf is soft and nontender to palpation. Neurovascular status to the left lower extremity is intact. Patient is discharged home in good condition. Please see med rec for accurate list of home medications. Plan - Discharge Summary Discharge Rx Participant: Yes New Discharge Prescriptions: New oxyCODONE-APAP 10-325MG [Percocet 10-325 mg] 1 tab PO Q6HR PRN 3 Days #12 tab PRN Reason: Pain Continue Ondansetron [Zofran ODT] 8 mg PO BID PRN PRN Reason: Nausea And Vomiting Darunavir/Cobicistat [Prezcobix 800 mg-150 mg Tablet] 1 tab PO DAILY Ipratropium-Albuterol Nebulize [Duoneb 0.5 mg-3 mg/3 ml Soln] 3 ml INHALATION RT-BID PRN PRN Reason: Shortness Of Breath Spironolactone [Aldactone] 25 mg PO DAILY #30 tab Bumetanide [BUMEX] 1 mg PO DAILY #30 tab Apixaban [Eliquis] 2.5 mg PO BID Albuterol Sulfate [Albuterol Sulfate Hfa] 1 - 2 puff PO Q6H PRN PRN Reason: Shortness Of Breath Gabapentin 600 mg PO HS Sacubitril/Valsartan [Entresto 24 mg-26 mg Tablet] 1 tab PO BID hydrOXYzine HCL 10 mg PO Q6H PRN PRN Reason: Itching fentaNYL 50MCG/HR PATCH [Duragesic 50MCG/HR] 50 mcg TRANSDERM Q72H Pantoprazole [Protonix] 40 mg PO DAILY Metoprolol Tartrate [Lopressor] 75 mg PO DAILY Levothyroxine Sodium 200 mcg PO DAILY Bictegrav/Emtricit/Tenofov Ala [Biktarvy 50-200-25 mg Tablet] 1 tab PO DAILY Tamsulosin HCl [Flomax] 0.4 mg PO HS Empagliflozin [Jardiance] 10 mg PO DAILY Rosuvastatin Calcium 40 mg PO DAILY Fenofibrate Nanocrystallized [Fenofibrate] 48 mg PO DAILY Discontinued oxyCODONE-APAP 10-325MG [Percocet 10-325 mg] 1 tab PO QID Discharge Medication List Ondansetron [Zofran ODT] 8 mg PO BID PRN 05/18/18 [History] Bictegrav/Emtricit/Tenofov Ala [Biktarvy 50-200-25 mg Tablet] 1 tab PO DAILY 09/07/21 [History] Darunavir/Cobicistat [Prezcobix 800 mg-150 mg Tablet] 1 tab PO DAILY 09/07/22 [History] Ipratropium-Albuterol Nebulize [Duoneb 0.5 mg-3 mg/3 ml Soln] 3 ml INHALATION RT-BID PRN 10/23/23 [History] Bumetanide [BUMEX] 1 mg PO DAILY #30 tab 10/24/23 [Rx] Spironolactone [Aldactone] 25 mg PO DAILY #30 tab 10/24/23 [Rx] Albuterol Sulfate [Albuterol Sulfate Hfa] 1 - 2 puff PO Q6H PRN 12/27/23 [History] Apixaban [Eliquis] 2.5 mg PO BID 12/27/23 [History] Empagliflozin [Jardiance] 10 mg PO DAILY 12/27/23 [History] Gabapentin 600 mg PO HS 12/27/23 [History] Sacubitril/Valsartan [Entresto 24 mg-26 mg Tablet] 1 tab PO BID 12/27/23 [Hi story] Tamsulosin HCl [Flomax] 0.4 mg PO HS 12/27/23 [History] Fenofibrate Nanocrystallized [Fenofibrate] 48 mg PO DAILY 03/17/24 [History] Levothyroxine Sodium 200 mcg PO DAILY 03/17/24 [History] Metoprolol Tartrate [Lopressor] 75 mg PO DAILY 03/17/24 [History] Pantoprazole [Protonix] 40 mg PO DAILY 03/17/24 [History] Rosuvastatin Calcium 40 mg PO DAILY 03/17/24 [History] fentaNYL 50MCG/HR PATCH [Duragesic 50MCG/HR] 50 mcg TRANSDERM Q72H 03/17/24 [History] hydrOXYzine HCL 10 mg PO Q6H PRN 03/17/24 [History] oxyCODONE-APAP 10-325MG [Percocet 10-325 mg] 1 tab PO Q6HR PRN 3 Days #12 tab 03/20/24 [Rx] Follow up Appointment(s)/Referral(s): [facility] [[facility]] - 1-2 Days ([facility] will call you to schedule your in home physical therapy visits. ) Joss Morocho DO [Doctor of Osteopathic Medicine] - 2 Weeks Activity/Diet/Wound Care/Special Instructions: Weightbearing as tolerated with walker. Leave dressing intact. Dressing may be removed by home care nurse or by patient in 7 days. Then change dressing twice daily until follow up. May shower with initial dressing intact and after removal. If dressing become saturated, please remove. Please resume Eliquis. Pain meds per PCP/pain mangement. Recommend use of compression stockings daily until follow up to help prevent swelling and blood clots. May remove at night before sleeping. Please follow-up with [facility] in 2 weeks and call with any questions or concerns, . Discharge Disposition: HOME WITH HOME HEALTH SERVICES
[2024-03-20 14:39] VITALS: BP 107/56; PULSE 77; TEMP 98.6
--- NOTE | 2024-03-20 15:22 | P.PAINPG ---
Objective - Vital Signs Vital signs: Vital Signs Temp 98.3 F 03/20/24 07:06 Pulse 68 03/20/24 07:06 Resp 18 03/20/24 11:55 BP 116/62 03/20/24 07:06 Pulse Ox 97 03/20/24 07:06 FiO2 Intake & Output 03/19/24 03/20/24 03/20/24 18:59 06:59 18:59 Intake Total 300 Output Total 600 600 Balance -600 -300 Intake: Oral 300 Output: Urine 600 600 Other: Voiding Method Toilet Toilet Urinal Urinal # Voids 4 2 2 # Bowel Movements 1 - Labs CBC & Chem 7: 03/20/24 04:46 Labs: Abnormal Lab Results - Last 24 Hours (Table) 03/20/24 03/20/24 Range/Units 04:46 06:17 RBC 2.72 L (4.40-5.60) X 10*6/uL Hgb 8.6 L (13.0-17.0) g/dL Hct 26.3 L (39.6-50.0) % Eosinophils # 0.03 L (0.04-0.35) X 10*3/uL POC Glucose (mg/dL) 170 H (70-110) mg/dL PQRS Measure Charge Sheet Comment: HISTORY OF PRESENT ILLNESS: A 63 yr old male presents today w severe acute L hip pain secondary to arthroplasty for DJD for evaluation. Pt states pain level is provoked at 9 /10 in intensity, constant, localized in the L hip, predominantly axial, sharp in character w occasional shooting pain towards the buttock and thigh. Pain is provoked by any movement. Pain is alleviated by medications (Dilaudid 1mg IVP q 3h, Percocet 10/325mg q6h, Neurontin 600mg HS), repositioning and rest . He states he typically receives Fentanyl q48h, Neurontin 600mg TID and Percocet 10/325mg QID from his established PCP. His current pain level is 3/10 as he just received Percocet to manage his pain. PMH: OA, Asthma, CHF, Fibromyalgia, GERD, Hypertension, HIV+, BPH, Gout, BL Glaucoma, MDD/ Anxiety/ PTSD PSH: Heart Catheterization, R Inguinal Hernia Repair x2, L Inguinal Hernia Repair, MV Repair, LESI, Hip Injections, RFAs, SCS Trial SH: Former tobacco user, Occ ETOH use, Cannabis use, Hx of Cocaine and Opioid Abuse. Lives w significant other. FH: Fa- from injury. Mo- Alcoholism/ . Bro- CHF and Alcoholism All: See list Meds: See list REVIEW OF ORGAN SYSTEMS: CONSTITUTIONAL: No fevers or chills. No recent weight loss. NEUROLOGICAL: + numbness and tingling along the distal extremities. No seizure disorders or headaches. MUSCULOSKELETAL: + pain PSYCHIATRIC: Denies current depression or suicidal thoughts. Physical Examinations : Constitutional : Cooperative , not in acute distress . Neurologic : Cranial nerve II to XII intact. No focal neurological deficits. Psychiatric : alert & oriented x 3. Matching mood & appropriate affect. Judgment & insight intact. Musculoskeletal : Cervical Spine Motor strength in the deltoid and biceps: Normal right side. Normal Left side Motor strength biceps and the wrist extensors: Normal right side . Normal left side Motor strength in the triceps muscle: Normal right side. Normal left side Deep tendon reflexes: Normal at the biceps. Normal at Brachioradialis. Normal at triceps Vertebral body tenderness to deep palpation over Cervical facet loading test: positive bilaterally Spurling test: positive bilaterally Neck distraction test: positive bilaterally Shabnam sign: positive bilaterally Lumbar spine +L hip dressing intact Motor strength lower extremities ,thigh and legs 5/5 Right side , 5/5 Left side Deep tendon reflexes : Normal Knee Jerk. Normal Ankle Jerk Vertebral body tenderness over Prieto Test positive Lumbar facet Loading Test: positive Right / positive Left Range of motion of the lumbar spine Flexion 30 degrees, extension 10 degrees Straight Leg Raise test: Left/ Right positive at degrees Arabella test: positive right / positive left. Severe tenderness over the Sacroiliac joint on the Right / Left sides Gaenslen test: positive bilaterally Seated flexion test: positive bi laterally. Sacral spine : Severe tenderness over the Sacroiliac joint: right side / left side Range of motion: Flexion of the lumbar spine <60 degrees Range of motion: Extension of the lumbar spine <20 degrees Gaenslen's Test positive Arabella test: positive right side / left side Thigh Thrust Test Sacral Thrust Test Imaging: L Hip x ray from 03/18/24 reviewed Assessment/ Plan : L Hip Arthroplasty w Hardware secondary to DJD Recommendation of medication management. Pt has an established pain management physician for Percocet and Fentanyl however he can not turkey picker his medications from the pharmacy until Sunday. He has a short supply at his outpatient pharmacy that he will turkey picker within an hour as he is scheduled for discharge. Use, side effects, adverse reactions, safe storage discussed. All questions answered. I have spent greater than 30 minutes on patient care today. Dr Gutierrez was available by phone for the evaluation of this patient. The time was used to r eview the medical records including relevant urine studies and Prescription history (MAPs), review of the available imaging, evaluation and examination of the patient, coordination of care with the medical staff and if applicable referring physicians, as well as creation of the medical record - Pain Location Right Hip Non-Pharmacological Interventions: Darkened Room, Position/Reposition Pharmacological Interventions: PRN Medication Pain Comment: HAS PAIN PATCH, AND PERCOCET FOR PAIN MANAGEMENT PQRS Narrative: Smoking Status Current some day smoker Blood Pressure [Left Arm] 116/62 Pain Intensity [Right Hip] 8 Pain Intensity 8 Pain Scale Used [Right Hip] Numeric (1 - 10) Pain Scale Used Non Verbal Pain Indicator Scale Used Numeric (1 - 10) Hx Alcohol Use (MH) Yes: occ Home Medications: Ambulatory Orders Ondansetron [Zofran ODT] 8 mg PO BID PRN 05/18/18 Bictegrav/Emtricit/Tenofov Ala [Biktarvy 50-200-25 mg Tablet] 1 tab PO DAILY 09/07/21 Darunavir/Cobicistat [Prezcobix 800 mg-150 mg Tablet] 1 tab PO DAILY 09/07/22 Ipratropium-Albuterol Nebulize [Duoneb 0.5 mg-3 mg/3 ml Soln] 3 ml INHALATION RT-BID PRN 10/23/23 Bumetanide [BUMEX] 1 mg PO DAILY #30 tab 10/24/23 Spironolactone [Aldactone] 25 mg PO DAILY #30 tab 10/24/23 Albuterol Sulfate [Albuterol Sulfate Hfa] 1 - 2 puff PO Q6H PRN 12/27/23 Apixaban [Eliquis] 2.5 mg PO BID 12/27/23 Empagliflozin [Jardiance] 10 mg PO DAILY 12/27/23 Gabapentin 600 mg PO HS 12/27/23 Sacubitril/Valsartan [Entresto 24 mg-26 mg Tablet] 1 tab PO BID 12/27/23 Tamsulosin HCl [Flomax] 0.4 mg PO HS 12/27/23 Fenofibrate Nanocrystallized [Fenofibrate] 48 mg PO DAILY 03/17/24 Levothyroxine Sodium 200 mcg PO DAILY 03/17/24 Metoprolol Tartrate [Lopressor] 75 mg PO DAILY 03/17/24 Pantoprazole [Protonix] 40 mg PO DAILY 03/17/24 Rosuvastatin Calcium 40 mg PO DAILY 03/17/24 fentaNYL 50MCG/HR PATCH [Duragesic 50MCG/HR] 50 mcg TRANSDERM Q72H 03/17/24 hydrOXYzine HCL 10 mg PO Q6H PRN 03/17/24 oxyCODONE-APAP 10-325MG [Percocet 10-325 mg] 1 tab PO Q6HR PRN 3 Days #12 tab 03/20/24 Controlled Substance Measures - Controlled Substance Measures Is patient prescribed a controlled substance at discharge?: No
--- NOTE | 2024-04-01 18:22 | FL ---
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 Total fluoroscopy time: 22 seconds Total submitted images to PACS: 3 DAP: 0.9123 mGym2 Gycm2 uGym2 cGycm2 FINDINGS: Fluoroscopic images during internal fixation/arthroplasty demonstrate fixation hardware in appropriat e position. Hardware appears intact. No immediate complication identified. IMPRESSION: 1. No evidence for intraoperative complication. 2. Please see the operative/procedural note for further details. [facility], , 04/01/2024 6:19 PM
== END 2024-03-20 16:40 | disposition home health service (06) ==
LOC: OR 09:21 → 4SSUR 09:22 → OR 09:22 → 4SSUR 12:32
PROVIDERS: ADMIT Orthopaedic Surgery; ATTEND Orthopaedic Surgery
DX: M16.12 Unilateral primary osteoarthritis, left hip (principal); G89.18 Other acute postprocedural pain; D62 Acute posthemorrhagic anemia; I11.0 Hypertensive heart disease with heart failure; I50.22 Chronic systolic (congestive) heart failure; E03.9 Hypothyroidism, unspecified; J44.9 Chronic obstructive pulmonary disease, unspecified; Z21 Asymptomatic human immunodeficiency virus [HIV] infection status; E11.40 Type 2 diabetes mellitus with diabetic neuropathy, unspecified; K21.9 Gastro-esophageal reflux disease without esophagitis; E78.5 Hyperlipidemia, unspecified; I48.0 Paroxysmal atrial fibrillation; F10.10 Alcohol abuse, uncomplicated; G89.4 Chronic pain syndrome; N40.0 Benign prostatic hyperplasia without lower urinary tract symptoms; F32.9 Major depressive disorder, single episode, unspecified; F41.9 Anxiety disorder, unspecified; Z72.0 Tobacco use; Z79.4 Long term (current) use of insulin; Z79.01 Long term (current) use of anticoagulants; Z79.84 Long term (current) use of oral hypoglycemic drugs; Z79.890 Hormone replacement therapy; Z79.891 Long term (current) use of opiate analgesic; Z79.899 Other long term (current) drug therapy; Z88.1 Allergy status to other antibiotic agents; Z88.2 Allergy status to sulfonamides; Z88.5 Allergy status to narcotic agent
CPT/HCPCS: 64447; 73501; 85025; 96365; 96366; 96375; 96376

== ENCOUNTER → 2024-03-28 | Outpatient (CLI) | payer MEDICARE, OTHER ==
--- NOTE | 2024-03-31 07:46 | USB ---
Reason for Exam: Clinical finding. Technique: Method: Targeted. Findings: The axilla of both breasts and the retroareolar of both breasts were scanned. No suspicious solid or cystic masses are identified.. Bilateral gynecomastia is evident. Recommend clinical management. If this is clinically bothersome, surgical consultation can be performed. Overall Assessment: Benign, BI-RAD 2 Management: Clinical Management of both breasts. A clinical breast exam by your physician is recommended on an annual basis and results should be correlated with mammographic findings. This exam should not preclude additional follow-up of suspicious palpable abnormalities. Results were given to the patient verbally at the time of exam. [facility], , 03/28/2024 9:46 AM . Electronically signed and approved by: Levy Case D.O. Radiologis
== END | disposition home or self-care (01) ==
LOC: RADUSWWP 09:23
PROVIDERS: ATTEND Family Medicine
DX: N63.20 Unspecified lump in the left breast, unspecified quadrant (principal)

== ENCOUNTER 2024-04-03 06:58 | Emergency (ER) | payer MEDICARE, OTHER ==
--- NOTE | 2024-04-03 07:18 | ED ---
General Adult HPI - General Chief complaint: Altered Mental Status Stated complaint: withdrawls Time Seen by Provider: 04/03/24 07:00 Source: patient, EMS, RN notes reviewed, old records reviewed Mode of arrival: EMS Limitations: no limitations - History of Present Illness Initial comments: This is a 63-year-old male who presents to the emergency department that he has been taking too many Percocet for quite a while and on Sunday he ran out and he has not had any Percocet since then he thinks he is withdrawing. Patient states he does not feel right he is very nauseous has vomited a couple times and has had diarrhea. Patient states he also has a little bit of the shakes. Patient states recently he has been drinking over the last few days because he thinks it helps his symptoms. Patient states prior to running out of Percocet he was not a drinker. Patient states he has been abusing Percocet for months. Patient denies any chest pain difficulty breathing shortness of breath. Patient states his hip is somewhat sore but not as bad as he thought it would be. Patient had recent surgery on his hip 2 weeks ago. - Related Data Home Medications Medication Instructions Recorded Confirmed Ondansetron [Zofran ODT] 8 mg PO BID PRN 05/18/18 04/03/24 Bictegrav/Emtricit/Tenofov Ala 1 tab PO DAILY 09/07/21 04/03/24 [Biktarvy 50-200-25 mg Tablet] Darunavir/Cobicistat [Prezcobix 1 tab PO DAILY 09/07/22 04/03/24 800 mg-150 mg Tablet] Ipratropium-Albuterol Nebulize 3 ml INHALATION RT-BID PRN 10/23/23 04/03/24 [Duoneb 0.5 mg-3 mg/3 ml Soln] Albuterol Sulfate [Albuterol 1 - 2 puff INHALATION RT-QID PRN 12/27/23 04/03/24 Sulfate Hfa] Empagliflozin [Jardiance] 10 mg PO DAILY 12/27/23 04/03/24 Sacubitril/Valsartan [Entresto 24 1 tab PO BID 12/27/23 04/03/24 mg-26 mg Tablet] Tamsulosin HCl [Flomax] 0.4 mg PO HS 12/27/23 04/03/24 Fenofibrate Nanocrystallized 48 mg PO DAILY 03/17/24 04/03/24 [Fenofibrate] Levothyroxine Sodium 200 mcg PO DAILY 03/17/24 04/03/24 Pantoprazole [Protonix] 40 mg PO DAILY 03/17/24 04/03/24 Rosuvastatin Calcium 40 mg PO DAILY 03/17/24 04/03/24 hydrOXYzine HCL 10 mg PO Q6H PRN 03/17/24 04/03/24 Apixaban [Eliquis] 2.5 mg PO BID 04/03/24 04/03/24 Bimatoprost [Lumigan 0.01% Ophth 1 drop BOTH EYES HS 04/03/24 04/03/24 Soln] Bumetanide [BUMEX] 1 mg PO DAILY PRN 04/03/24 04/03/24 Colchicine 0.6 mg PO DIRECTED PRN 04/03/24 04/03/24 Gabapentin 600 mg PO TID 04/03/24 04/03/24 Losartan [Cozaar] 25 mg PO DAILY 04/03/24 04/03/24 Metoprolol Succinate (ER) [Toprol 75 mg PO DAILY 04/03/24 04/03/24 Xl] allopurinoL 100 mg PO DAILY 04/03/24 04/03/24 Previous Rx's Medication Instructions Recorded Spironolactone [Aldactone] 25 mg PO DAILY #30 tab 10/24/23 oxyCODONE-APAP 10-325MG [Percocet 1 tab PO Q6HR PRN 3 Days #12 tab 03/20/24 10-325 mg] Allergies Allergy/AdvReac Type Severity Reaction Status Date / Time abacavir [From Ziagen] Allergy Anaphylaxis Verified 04/03/24 11:40 efavirenz [From Sustiva] Allergy Anaphylaxis Verified 04/03/24 11:40 levofloxacin Allergy Itching Verified 04/03/24 11:40 hydrocodone AdvReac Rapid Verified 04/03/24 11:40 [From Hysingla ER] Heart Rate morphine AdvReac Itching Verified 04/03/24 11:40 sulfamethoxazole AdvReac HIGH Verified 04/03/24 11:40 [From Bactrim] CREATININE LEVEL trimethoprim [From Bactrim] AdvReac HIGH Verified 04/03/24 11:40 CREATININE Review of Systems ROS Statement: Those systems with pertinent positive or pertinent negative responses have been documented in the HPI. ROS Other: All systems not noted in ROS Statement are negative. Past Medical History Past Medical History: Asthma, Heart Failure, Fibromyalgia, GERD/Reflux, Hyper tension, Prostate Disorder Additional Past Medical History / Comment(s): Mitral valve disease and a previous mitral valve surgery repair HIV positive, past HTN and recently low blood pressures, BPH, R ankle gout, chronic nausea, bilateral glaucoma, DDD, chronic pain syndrome, chronic low back and bilateral hip pain and occasional cervical pain, DDD, lumbar stenosis/spondylosis, abdominal hernia, previous history of drug overdose. PTSD History of Any Multi-Drug Resistant Organisms: None Reported Past Surgical History: Heart Catheterization, Hernia Repair Additional Past Surgical History / Comment(s): Mitral valve repair at [facility], R inguinal hernia x2, L inguinal hernia, epidural injections to back, hip injections, RFAs, spinal cord stimulator trial-removed, Past Anesthesia/Blood Transfusion Reactions: No Reported Reaction Past Psychological History: Anxiety, Depression, PTSD Smoking Status: Former smoker Past Alcohol Use History: Occasional Past Drug Use History: Marijuana, Prescription Drug Abuse - Past Family History Father History Unknown: Yes Additional Family Medical History / Comment(s): Father was injured at work and of complication during his hospitalization. Mother Additional Family Medical History / Comment(s): Mother is from alcoholism. Brother(s) Additional Family Medical History / Comment(s): alcohol and HF General Exam - General Exam Comments Initial Comments: GENERAL: Patient is well-developed and well-nourished. Patient is nontoxic and well- hydrated and is in mild distress. ENT: Neck is soft and supple. No significant lymphadenopathy is noted. Oropharynx is clear. Moist mucous membranes. Neck has full range of motion without eliciting any pain. EYES: The sclera were anicteric and conjunctiva were pink and moist. Extraocular movements were intact and pupils were equal round and reactive to light. Eyelids were unremarkable. PULMONARY: Unlabored respirations. Good breath sounds bilaterally. No audible rales rhonchi or wheezing was noted. CARDIOVASCULAR: There is a regular rate and rhythm without any murmurs gallops or rubs. ABDOMEN: Soft and nontender with normal bowel sounds. SKIN: Skin is clear with no lesions or rashes and otherwise unremarkable. NEUROLOGIC: Patient is alert and oriented x3. Cranial nerves II through XII are grossly intact. Motor and sensory are also intact. Normal speech, volume and content. Symmetrical smile. MUSCULOSKELETAL: Normal extremities with adequate strength and full range of motion. LYMPHATICS: No significant lymphadenopathy is noted PSYCHIATRIC: Normal psychiatric evaluation. Limitations: no limitations Course Vital Signs 04/03/24 04/03/24 04/03/24 07:00 07:50 10:02 Temperature 98.5 F 99.1 F 99.2 F Pulse Rate 103 H 98 112 H Respiratory 18 19 19 Rate Blood Pressure 155/80 132/71 135/70 O2 Sat by Pulse 98 95 98 Oximetry 04/03/24 11:25 Temperature 98.8 F Pulse Rate 109 H Respiratory 18 Rate Blood Pressure 140/73 O2 Sat by Pulse 97 Oximetry Medical Decision Making - Medical Decision Making EKG is interpreted by myself. EKG shows a sinus tachycardia at 100 bpm HI interval 170 QRS 114 QT interval 373 QTc is 430. Patient's EKG shows no ST segment elevation or depression. Was pt. sent in by a medical professional or institution (, PA, BEEF SELECTOR, urgent care, hospital, or [place] [facility] [place] facility...) When possible be specific @ -No Did you speak to anyone other than the patient for history (EMS, parent, family, police, friend...)? What history was obtained from this source @ -No Did you review nursing and triage notes (agree or disagree)? Why? @ -I reviewed and agree with nursing and triage notes Were old charts reviewed (outside hosp., previous admission, EMS record, old EKG, old radiological studies, urgent care reports/EKG's, [place] health [place] facility records)? Report findings @ -No old charts were reviewed Differential Diagnosis? @ -Differential Altered Mental Status: Hypoglycemia, DKA, hypercapnia, ETOH, overdose, CO poisoning, trauma, myxedema coma, HTN encephalopathy, infection, encephalitis, psychosis, intercranial hemorrhage, hepatic encephalopathy, meningitis, CVA, this is not meant to be an all-inclusive list EKG interpreted by me (3pts min.). @ -As above X-rays interpreted by me (1pt min.). @ -None done CT interpreted by me (1pt min.). @ -None done U/S interpreted by me (1pt. min.). @ -None done What testing was considered but not performed or refused? (CT, X-rays, U/S, labs)? Why? @ -None What meds were considered but not given or refused? Why? @ -None Did you discuss the management of the patient with other professionals (patricia johnston i.e. , PA, BEEF SELECTOR, lab, RT, psych nurse, high school social studies teacher, waiter/waitress room service, teacher, fire prevention officer, mental health case manager)? Give summary @ -No Was smoking cessation discussed for >3mins.? @ -No Was critical care preformed (if so, how long)? @ -No Were there social determinants of health that impacted care today? How? (Homelessness, low income, unemployed, alcoholism, drug addiction, transportation, low edu. Level, literacy, decrease access to med. care, nursing home, rehab)? @ -No Was there de-escalation of care discussed even if they declined (Discuss DNR or withdrawal of care, Hospice)? DNR status @ -No What co-morbidities impacted this encounter? (DM, HTN, Smoking, COPD, CAD, Cancer, CVA, ARF, Chemo, Hep., AIDS, mental health diagnosis, sleep apnea, morbid obesity)? @ -None Was patient admitted / discharged? Hospital course, mention meds given and route, prescriptions, significant lab abnormalities, going to OR and other pertinent info. @ -Patient initially stated that he stopped taking Percocet but then later admitted that he ran out because he was taking 3 times as much. Patient also stated he been drinking a lot but not today at all. Patient states he stopped drinking 11:00 tonight however his alcohol was 230. Patient was given a liter of fluid and he was sober at 1:00 so patient will be discharged. Patient was requesting to be discharged as well. Patient told the nurse that he believes we put the alcohol in his blood work Undiagnosed new problem with uncertain prognosis? @ -No Drug Therapy requiring intensive monitoring for toxicity (Heparin, Nitro, Insulin, Cardizem)? @ -No Were any procedures done? @ -No Diagnosis/symptom? @ -Alcohol intoxication Acute, or Chronic, or Acute on Chronic? @ -Acute Uncomplicated (without systemic symptoms) or Complicated (systemic symptoms)? @ -Complicated Side effects of treatment? @ -No Exacerbation, Progression, or Severe Exacerbation? @ -No Poses a threat to life or bodily function? How? (Chest pain, USA, OR, pneumonia, PE, COPD, DKA, ARF, appy, cholecystitis, CVA, Diverticulitis, Homicidal, Suicidal, threat to staff... and all critical care pts) @ -No - Lab Data Result diagrams: 04/03/24 07:23 04/03/24 08:39 Lab Results 04/03/24 04/03/24 04/03/24 Range/Units 07:23 07:23 08:39 WBC 7.3 (3.8-10.6) k/uL RBC 3.54 L (4.30-5.90) m/uL Hgb 11.4 L (13.0-17.5) gm/dL Hct 34.9 L (39.0-53.0) % MCV 98.6 (80.0-100.0) fL MCH 32.2 (25.0-35.0) pg MCHC 32.6 (31.0-37.0) g/dL RDW 14.9 (11.5-15.5) % Plt Count 307 (150-450) k/uL MPV 8.5 Neutrophils % 63 % Lymphocytes % 29 % Monocytes % 5 % Eosinophils % 0 % Basophils % 0 % Neutrophils # 4.6 (1.3-7.7) k/uL Lymphocytes # 2.2 (1.0-4.8) k/uL Monocytes # 0.3 (0-1.0) k/uL Eosinophils # 0.0 (0-0.7) k/uL Basophils # 0.0 (0-0.2) k/uL Hypochromasia Slight Macrocytosis Slight Sodium 143 (137-145) mmol/L Potassium 4.1 (3.5-5.1) mmol/L Chloride 111 H (98-107) mmol/L Carbon Dioxide 16 L (22-30) mmol/L Anion Gap 16 mmol/L BUN 16 (9-20) mg/dL Creatinine 0.69 (0.66-1.25) mg/dL Est GFR (CKD-EPI)AfAm >90 (>60 ml/min/1.73 sqM) Est GFR (CKD-EPI)NonAf >90 (>60 ml/min/1.73 sqM) Glucose 76 (74-99) mg/dL Calcium 8.9 (8.4-10.2) mg/dL Magnesium 1.6 (1.6-2.3) mg/dL Total Bilirubin 0.5 (0.2-1.3) mg/dL AST 24 (17-59) U/L ALT 8 (4-49) U/L Alkaline Phosphatase 72 (38-126) U/L Total Protein 6.8 (6.3-8.2) g/dL Albumin 3.9 (3.5-5.0) g/dL Urine Opiates Screen Not Detected (NotDetected) Ur Oxycodone Screen Detected H (NotDetected) Urine Methadone Screen Not Detected (NotDetected) Ur Barbiturates Screen Not Detected (NotDetected) U Tricyclic Antidepress Not Detected (NotDetected) Ur Phencyclidine Scrn Not Detected (NotDetected) Ur Amphetamines Screen Not Detected (NotDetected) U Methamphetamines Scrn Not Detected (NotDetected) U Benzodiazepines Scrn Detected H (NotDetected) Urine Cocaine Screen Not Detected (NotDetected) U Marijuana (THC) Screen Not Detected (NotDetected) Serum Alcohol 231 H* mg/dL Disposition Clinical Impression: Alcohol intoxication Disposition: HOME SELF-CARE Condition: Good Instructions (If sedation given, give patient instructions): Alcohol Intoxication (ED) Is patient prescribed a controlled substance at d/c from ED?: No Referrals: Girma Malone MD [Primary Care Provider] - 1-2 days Time of Disposition: 12:45
[2024-04-03] MEDS: SODIUM CHLORIDE 0.9% 1,000 ML IV ONE (07:50)
[2024-04-03] MEDS: ONDANSETRON 4 MG/2 ML VIAL IVP STA (07:51)
[2024-04-03] MEDS: LORazepam 2 MG/ML INJ IV STA (07:51)
[2024-04-03 07:55] LABS: Basophils % (A) 0 %; Eosinophils % (A) 0 %; HCT 34.9 % (39.0-53.0); HGB 11.4 gm/dL (13.0-17.5); Hypochromasia Slight; Lymphocytes # (A) 2.2 k/uL (1.0-4.8); Lymphocytes % (A) 29 %; MCH 32.2 pg (25.0-35.0); MCHC 32.6 g/dL (31.0-37.0); MCV 98.6 fL (80.0-100.0); Macrocytosis Slight; Mean Platelet Volume 8.5; Monocytes # (A) 0.3 k/uL (0-1.0); Monocytes % (A) 5 %; Neutrophils # (A) 4.6 k/uL (1.3-7.7); Neutrophils % (A) 63 %; Platelet Count 307 k/uL (150-450); RBC 3.54 m/uL (4.30-5.90); RDW 14.9 % (11.5-15.5); WBC 7.3 k/uL (3.8-10.6)
[2024-04-03 09:08] LABS: ALT 8 U/L (4-49); AST 24 U/L (17-59); African American GFR (CKD) >90 (>60 ml/min/1.73 sqM); Albumin 3.9 g/dL (3.5-5.0); Alkaline Phosphatase 72 U/L (38-126); Anion Gap 16 mmol/L; Blood Urea Nitrogen 16 mg/dL (9-20); Calcium 8.9 mg/dL (8.4-10.2); Carbon Dioxide 16 mmol/L (22-30); Chloride 111 mmol/L (98-107); Glucose 76 mg/dL (74-99); Magnesium 1.6 mg/dL (1.6-2.3); Non-African American GFR(CKD) >90 (>60 ml/min/1.73 sqM); Potassium 4.1 mmol/L (3.5-5.1); Sodium 143 mmol/L (137-145); Total Bilirubin 0.5 mg/dL (0.2-1.3); Total Protein 6.8 g/dL (6.3-8.2)
[2024-04-03 09:36] LABS: Alcohol 231 mg/dL
[2024-04-03 11:17] LABS: Amphetamine Screen,Urine Not Detected (NotDetected); Barbiturate Screen,Urine Not Detected (NotDetected); Benzodiazepines Screen,Urine Detected (NotDetected); Cocaine Screen,Urine Not Detected (NotDetected); Methadone Screen, Urine Not Detected (NotDetected); Opiate Screen,Urine Not Detected (NotDetected); Oxycodone Screen, Urine Detected (NotDetected); Phencyclidine Screen,Urine Not Detected (NotDetected); Tricyclic Antidepressant,Urine Not Detected (NotDetected); Urn Cannabinoid Scrn Not Detected (NotDetected)
[2024-04-03 12:55] VITALS: BP 143/75; PULSE 111; RESP 17; TEMP 98.3
[2024-04-03] MEDS: METOPROLOL SUCCINATE (ER) 100 MG TAB.ER.24H PO STA (13:08)
[2024-04-04 06:58] LABS: Glucose,Whole Blood 69 mg/dL (70-110)
== END 2024-04-03 13:21 | disposition home or self-care (01) ==
LOC: EC 06:58 → SUPCPDRO 06:58 → EC 13:21
CPT/HCPCS: 36415; 80053; 80306; 80320; 82075; 83735; 85025; 93005; 96361; 96374; 96375; 99285

== ENCOUNTER 2024-04-07 16:52 | Inpatient (IN) | payer MEDICARE, OTHER ==
--- NOTE | 2024-04-07 17:16 | ED ---
General Adult HPI - General Chief complaint: Fall Stated complaint: Fall Time Seen by Provider: 04/07/24 16:57 Source: patient, family, EMS, RN notes reviewed Mode of arrival: EMS Limitations: no limitations - History of Present Illness Initial comments: Patient is a 63-year-old male presenting to the emergency department with fall. Incident occurred prior to arrival. Patient was walking up the steps when he fell backwards. This was around 4 steps. Patient complains of discomfort of both of his knees. Patient also has back discomfort however that is chronic. Patient also has abdominal discomfort however that is also chronic associated with his alcohol intake. Patient admits to drinking alcohol. Patient does have history of A-fib and is on Eliquis. Patient does not believe he struck his head. No dyspnea. Patient did have hip replacement done 2 weeks ago electively secondary to what sounds to be avascular necrosis - Related Data Home Medications Medication Instructions Recorded Confirmed Ondansetron [Zofran ODT] 8 mg PO BID PRN 05/18/18 04/07/24 Bictegrav/Emtricit/Tenofov Ala 1 tab PO DAILY 09/07/21 04/07/24 [Biktarvy 50-200-25 mg Tablet] Darunavir/Cobicistat [Prezcobix 1 tab PO DAILY 09/07/22 04/07/24 800 mg-150 mg Tablet] Ipratropium-Albuterol Nebulize 3 ml INHALATION RT-BID PRN 10/23/23 04/07/24 [Duoneb 0.5 mg-3 mg/3 ml Soln] Albuterol Sulfate [Albuterol 1 - 2 puff INHALATION RT-QID PRN 12/27/23 04/07/24 Sulfate Hfa] Empagliflozin [Jardiance] 10 mg PO DAILY 12/27/23 04/07/24 Sacubitril/Valsartan [Entresto 24 1 tab PO BID 12/27/23 04/07/24 mg-26 mg Tablet] Tamsulosin HCl [Flomax] 0.4 mg PO HS 12/27/23 04/07/24 Fenofibrate Nanocrystallized 48 mg PO DAILY 03/17/24 04/07/24 [Fenofibrate] Levothyroxine Sodium 200 mcg PO DAILY 03/17/24 04/07/24 Pantoprazole [Protonix] 40 mg PO DAILY 03/17/24 04/07/24 Rosuvastatin Calcium 40 mg PO DAILY 03/17/24 04/07/24 hydrOXYzine HCL 10 mg PO Q6H PRN 03/17/24 04/07/24 Apixaban [Eliquis] 2.5 mg PO BID 04/03/24 04/07/24 Bimatoprost [Lumigan 0.01% Ophth 1 drop BOTH EYES HS 04/03/24 04/07/24 Soln] Bumetanide [BUMEX] 1 mg PO DAILY PRN 04/03/24 04/07/24 Colchicine 0.6 mg PO DIRECTED PRN 04/03/24 04/07/24 Gabapentin 600 mg PO TID 04/03/24 04/07/24 Losartan [Cozaar] 25 mg PO DAILY 04/03/24 04/07/24 Metoprolol Succinate (ER) [Toprol 75 mg PO DAILY 04/03/24 04/07/24 Xl] allopurinoL 100 mg PO DAILY 04/03/24 04/07/24 Previous Rx's Medication Instructions Recorded Spironolactone [Aldactone] 25 mg PO DAILY #30 tab 10/24/23 oxyCODONE-APAP 10-325MG [Percocet 1 tab PO Q6HR PRN 3 Days #12 tab 03/20/24 10-325 mg] Allergies Allergy/AdvReac Type Severity Reaction Status Date / Time abacavir [From Ziagen] Allergy Anaphylaxis Verified 04/07/24 16:59 efavirenz [From Sustiva] Allergy Anaphylaxis Verified 04/07/24 16:59 levofloxacin Allergy Itching Verified 04/07/24 16:59 hydrocodone AdvReac Rapid Verified 04/07/24 16:59 [From Hysingla ER] Heart Rate morphine AdvReac Itching Verified 04/07/24 16:59 sulfamethoxazole AdvReac HIGH Verified 04/07/24 16:59 [From Bactrim] CREATININE LEVEL trimethoprim [From Bactrim] AdvReac HIGH Verified 04/07/24 16:59 CREATININE Review of Systems ROS Statement: Those systems with pertinent positive or pertinent negative responses have been documented in the HPI. ROS Other: All systems not noted in ROS Statement are negative. Constitutional: Denies: fever Eyes: Denies: eye pain ENT: Denies: ear pain Respiratory: Denies: dyspnea Cardiovascular: Denies: chest pain Gastrointestinal: Reports: as per HPI Musculoskeletal: Reports: as per HPI Neurological: Denies: headache, weakness Past Medical History Past Medical History: Asthma, Heart Failure, Fibromyalgia, GERD/Reflux, Hypertension, Prostate Disorder Additional Past Medical History / Comment(s): Mitral valve disease and a previous mitral valve surgery repair HIV positive, past HTN and recently low blood pressures, BPH, R ankle gout, chronic nausea, bilateral glaucoma, DDD, chronic pain syndrome, chronic low back and bilateral hip pain and occasional cervical pain, DDD, lumbar stenosis/spondylosis, abdominal hernia, previous h istory of drug overdose. PTSD History of Any Multi-Drug Resistant Organisms: None Reported Past Surgical History: Heart Catheterization, Hernia Repair Additional Past Surgical History / Comment(s): Mitral valve repair at [facility], R inguinal hernia x2, L inguinal hernia, epidural injections to back, hip injections, RFAs, spinal cord stimulator trial-removed, Past Anesthesia/Blood Transfusion Reactions: No Reported Reaction Past Psychological History: Anxiety, Depression, PTSD Smoking Status: Former smoker Past Alcohol Use History: Occasional Past Drug Use History: Marijuana, Prescription Drug Abuse - Past Family History Father History Unknown: Yes Additional Family Medical History / Comment(s): Father was injured at work and of complication during his hospitalization. Mother Additional Family Medical History / Comment(s): Mother is from alcoholism. Brother(s) Additional Family Medical History / Comment(s): alcohol and HF General Exam Limitations: no limitations General appearance: alert, in no apparent distress Head exam: Present: normocephalic Eye exam: Present: normal appearance, PERRL, EOMI, nystagmus ENT exam: Present: normal oropharynx Neck exam: Present: normal inspection, tenderness (Mild lower cervical tenderness, collar is already in place) Respiratory exam: Present: normal lung sounds bilaterally. Absent: respiratory distress, decreased breath sounds Cardiovascular Exam: Present: tachycardia, irregular rhythm Expanded Peripheral pulses: 2+: Radial (R), Radial (L), Femoral (R), Femoral (L), Posterior Tibialis (R), Posterior Tibialis (L), Dorsalis Pedis (R), Dorsalis Pedis (L) GI/Abdominal exam: Present: soft, tenderness (Moderate tenderness mid lower abdomen) Extremities exam: Present: normal inspection Back exam: Present: normal inspection. Absent: vertebral tenderness Neurological exam: Present: alert, oriented X3, CN II-XII intact. Absent: motor sensory deficit Expanded Motor strength exam: RUE: 5, LUE: 5, RLE: 5, LLE: 5 Eye Response: (4) open spontaneously Motor Response: (6) obeys commands Verbal Response: (5) oriented Psychiatric exam: Present: normal affect, normal mood Skin exam: Present: normal color Course Vital Signs 04/07/24 04/07/24 04/07/24 16:54 18:30 19:35 Temperature 98.9 F Pulse Rate 170 H 152 H 163 H Respiratory 20 20 18 Rate Blood Pressure 105/85 94/65 115/54 O2 Sat by Pulse 96 99 100 Oximetry 04/07/24 20:54 Temperature Pulse Rate 154 H Respiratory 18 Rate Blood Pressure 94/71 O2 Sat by Pulse 98 Oximetry - Reevaluation(s) Reevaluation #1: 04/07/24 18:42 Call from radiologist with concern for dissection. Films reviewed. Discussion with patient states he feels he does have a history of this since approximately November. Patient states he was at [facility] for this and Dr. Beal with cardiology does know all about this and decision was still made to go ahead with hip surgery. 04/07/24 19:38 I did speak with Dr. Ronan vargas for Dr. Beal who was not available. He states if dissection is new patient may need to be transferred. I did speak with Dr. Knight from [facility] however he is not on the covering service and [facility] will call back 04/07/24 20:20 We did call you have them again and they are still trying to get a hold of the cardiac surgeon. EKG Findings - EKG Results: EKG: interpreted by ERMD (Anterior septal Q waves. Artifact is present. T wave inversion laterally.), normal axis EKG shows: tachycardia, atrial fibrillation Medical Decision Making - Medical Decision Making MDM back was pt. sent in by a medical professional or institution (, PA, QUICK SKETCH ARTIST, urgent care, hospital, or retirement...) When possible be specific @ -No Did you speak to anyone other than the patient for history (EMS, parent, family, police, friend...)? What history was obtained from this source @ -Male accompanying the patient was present during the incident and helps provide history of the incident Did you review nursing and triage notes (agree or disagree)? Why? @ -I reviewed and agree with nursing and triage notes Were old charts reviewed (outside hosp., previous admission, EMS record, old EKG, old radiological studies, urgent care reports/EKG's, retirement records)? Report findings @ -Previous visits reviewed including CT results and surgical report and history and physical and cardiac consult Differential Diagnosis (chest pain, altered mental status, abdominal pain women, abdominal pain men, vaginal bleeding, weakness, fever, dyspnea, syncope, headache, dizziness, GI bleed, back pain, seizure, CVA, palpatations, mental health, musculoskeletal)? @ -Differential Palpitations Ventricular arrhythmias, atrial arrhythmias, myocardial infarction, anemia, thyrotoxicosis, electrolyte imbalance, hypokalemia, pulmonary embolism, pulmonary disease, drugs, alcohol, anxiety, stress.... This is not meant to be an all-inclusive list. Differential Musculoskeletal Muscular strain, contusion, ligament sprain, fracture, arthritis, septic arthritis, bursitis, cellulitis, muscle spasm, nerve compression, DVT, arterial occlusion, herpes zoster, electrolyte abnormality, tumor.... This is not meant to be in all inclusive list EKG interpreted by me (3pts min.). @ -As above X-rays interpreted by me (1pt min.). @ -Chest x-ray shows postoperative changes and previous right rib fracture. Pelvis x-ray shows left hip repair. Bilateral knee x-ray without acute fracture CT interpreted by me (1pt min.). @ -CT brain and cervical spine without acute abnormality. CT chest abdomen pelvis shows Diaz dissection type a U/S interpreted by me (1pt. min.). @ -None done What testing was considered but not performed or refused? (CT, X-rays, U/S, la bs)? Why? @ -None What meds were considered but not given or refused? Why? @ -None Did you discuss the management of the patient with other professionals (professionals i.e. , PA, QUICK SKETCH ARTIST, lab, RT, psych nurse, licensed social worker, mechanical fitter, teacher, [employer] officer, pillowcase turner)? Give summary @ -Case was discussed with Suzan with the transfer team at [facility] as well as Dr. Arias as well as Dr. ronak spears and CT scan from them is reviewed that does confirm type a dissection extending from the sinuses down to the femorals. They state patient is not a surgical candidate and recommendations was to keep systolic blood pressure less than 140 and beta-trish metoprolol 100 Case also discussed with Dr. Mccain who will admit covering for Dr. Malone Was smoking cessation discussed for >3mins.? @ -No Was critical care preformed (if so, how long)? @ -31 minutes critical care Were there social determinants of health that impacted care today? How? (Homelessness, low income, unemployed, alcoholism, drug addiction, transportation, low edu. Level, literacy, decrease access to med. care, [facility], rehab)? @ -No Was there de-escalation of care discussed even if they declined (Discuss DNR or withdrawal of care, Hospice)? DNR status @ -No What co-morbidities impacted this encounter? (DM, HTN, Smoking, COPD, CAD, Cancer, CVA, ARF, Chemo, Hep., AIDS, mental health diagnosis, sleep apnea, morbid obesity)? @ -Questionable history of thoracic dissection Was patient admitted / discharged? Hospital course, mention meds given and route, prescriptions, significant lab abnormalities, going to OR and other pertinent info. @ -Patient presents with a fall however has no traumatic injuries. Patient would not be admitted for any injury. Patient does have thoracic dissection which is confirmed not to be acute and not an acute surgical candidate. Patient does however have A-fib with RVR as well as significant alcohol intoxication. Patient was started on Cardizem drip. Patient will be admitted with cardiology consult. Undiagnosed new problem with uncertain prognosis? @ -No Drug Therapy requiring intensive monitoring for toxicity (Heparin, Nitro, Insulin, Cardizem)? @ -No Were any procedures done? @ -No Diagnosis/symptom? @ -A-fib with RVR, alcohol intoxication, aortic dissection Acute, or Chronic, or Acute on Chronic? @ -Acute, acute, chronic Uncomplicated (without systemic symptoms) or Complicated (systemic symptoms)? @ -Default Side effects of treatment? @ -No Exacerbation, Progression, or Severe Exacerbation? @ -No Poses a threat to life or bodily function? How? (Chest pain, USA, GA, pneumonia, PE, COPD, DKA, ARF, appy, cholecystitis, CVA, Diverticulitis, Homicidal, Suicidal, threat to staff... and all critical care pts) @ -Threat to cardiac function - Lab Data Result diagrams: 04/07/24 17:21 Lab Results 04/07/24 04/07/24 04/07/24 Range/Units 17:21 17:21 17:21 PT 10.6 (10.0-12.5) sec INR 1.0 (<1.2) APTT 22.0 (22.0-30.0) sec Sodium 137 (137-145) mmol/L Potassium 4.4 (3.5-5.1) mmol/L Chloride 101 (98-107) mmol/L Carbon Dioxide 15 L (22-30) mmol/L Anion Gap 21 mmol/L BUN 31 H (9-20) mg/dL Creatinine 0.99 (0.66-1.25) mg/dL Est GFR (CKD-EPI)AfAm >90 (>60 ml/min/1.73 sqM) Est GFR (CKD-EPI)NonAf 82 (>60 ml/min/1.73 sqM) Glucose 179 H (74-99) mg/dL Calcium 9.2 (8.4-10.2) mg/dL Magnesium 2.0 (1.6-2.3) mg/dL Total Bilirubin 0.8 (0.2-1.3) mg/dL AST 47 (17-59) U/L ALT 19 (4-49) U/L Alkaline Phosphatase 98 (38-126) U/L Total Protein 7.7 (6.3-8.2) g/dL Albumin 4.7 (3.5-5.0) g/dL Lipase 310 H (23-300) U/L TSH 0.306 L (0.465-4.680) mIU/L Free T4 1.47 (0.78-2.19) ng/dL Urine Opiates Screen Not Detected (NotDetected) Ur Oxycodone Screen Not Detected (NotDetected) Urine Methadone Screen Not Detected (NotDetected) Ur Barbiturates Screen Not Detected (NotDetected) U Tricyclic Antidepress Not Detected (NotDetected) Ur Phencyclidine Scrn Not Detected (NotDetected) Ur Amphetamines Screen Not Detected (NotDetected) U Methamphetamines Scrn Not Detected (NotDetected) U Benzodiazepines Scrn Not Detected (NotDetected) Urine Cocaine Screen Not Detected (NotDetected) U Marijuana (THC) Screen Not Detected (NotDetected) Serum Alcohol 416 H* mg/dL Blood Type Blood Type Recheck Bld Type Recheck Status Antibody Screen Spec Expiration Date 04/07/24 Range/Units 17:23 PT (10.0-12.5) sec INR (<1.2) APTT (22.0-30.0) sec Sodium (137-145) mmol/L Potassium (3.5-5.1) mmol/L Chloride (98-107) mmol/L Carbon Dioxide (22-30) mmol/L Anion Gap mmol/L BUN (9-20) mg/dL Creatinine (0.66-1.25) mg/dL Est GFR (CKD-EPI)AfAm (>60 ml/min/1.73 sqM) Est GFR (CKD-EPI)NonAf (>60 ml/min/1.73 sqM) Glucose (74-99) mg/dL Calcium (8.4-10.2) mg/dL Magnesium (1.6-2.3) mg/dL Total Bilirubin (0.2-1.3) mg/dL AST (17-59) U/L ALT (4-49) U/L Alkaline Phosphatase (38-126) U/L Total Protein (6.3-8.2) g/dL Albumin (3.5-5.0) g/dL Lipase (23-300) U/L TSH (0.465-4.680) mIU/L Free T4 (0.78-2.19) ng/dL Urine Opiates Screen (NotDetected) Ur Oxycodone Screen (NotDetected) Urine Methadone Screen (NotDetected) Ur Barbiturates Screen (NotDetected) U Tricyclic Antidepress (NotDetected) Ur Phencyclidine Scrn (NotDetected) Ur Amphetamines Screen (NotDetected) U Methamphetamines Scrn (NotDetected) U Benzodiazepines Scrn (NotDetected) Urine Cocaine Screen (NotDetected) U Marijuana (THC) Screen (NotDetected) Serum Alcohol mg/dL Blood Type O Negative Blood Type Recheck O Neg Bld Type Recheck Status No Antibody Screen NEGATIVE Spec Expiration Date 04/10/20242322 Critical Care Time Critical Care Time: Yes Disposition Clinical Impression: Atrial fibrillation with RVR, Alcohol intoxication Disposition: ADMITTED IP TO THIS HOSP Is patient prescribed a controlled substance at d/c from ED?: No Time of Disposition: 20:44
[2024-04-07] MEDS: DILTIAZEM 125 MG in SODIUM CHLORIDE 0.9% 100 ML IV SCH (17:56)
[2024-04-07] MEDS: SODIUM CHLORIDE 0.9% 500 ML 500 ML IV STA (17:58)
--- NOTE | 2024-04-07 18:03 | CT ---
EXAMINATION TYPE: CT brain cspine wo con CT DLP: 1422.8 mGycm, Automated exposure control for dose reduction was used. DATE OF EXAM: 04/07/2024 5:51 PM COMPARISON: None. CLINICAL INDICATION: Male, 63 years old with history of trauma; Patient fell x 3 days ago, states harjeet t he has been unable to walk since. TECHNIQUE: Brain: Multiple axial CT images of the brain were obtained without IV contrast. Cspine: Axial CT images from the skull base to the inferior aspect of T2 we obtained without intraven ous contrast. Coronal and sagittal reformatted images were also reviewed. . FINDINGS: Brain: Extra-axial spaces: No abnormal extra-axial fluid collections. Ventricular system: Dilatation in proportion to cerebral atrophy. Cerebral parenchyma: Cerebral atrophy. No acute intraparenchymal hemorrhage or mass effect. The dykes -white junction is well differentiated. Cerebellum: Unremarkable. Mass effect: No evidence of midline shift. Intracranial vasculature: unremarkable Soft tissues: Normal. Elongated styloid processes bilaterally. Calvarium/osseous structures: No depre ssed skull fracture. Paranasal sinuses and mastoid air cells: Clear. Visualized orbits: Orbital contents are intact. Cervical spine: Fracture: None. Osseous structures: Multilevel degenerative disc disease changes with endplate spurring and disc oste ophyte complex's. Vertebral alignment: Within normal limits. Spinal canal/Neural Foramina: No evidence of significant spinal canal narrowing. No evidence for sign ificant neural foraminal stenosis. Neck soft tissues: Prevertebral soft tissues are within normal limits. Other: The airway is patent. The lung apices are clear. IMPRESSION: 1. No acute intracranial process. 2. No evidence of cervical spine fracture. 3. Mild multilevel degenerative disc disease. [facility], , 04/07/2024 6:01 PM
[2024-04-07] MEDS: ONDANSETRON 4 MG/2 ML VIAL IVP STA (18:13)
[2024-04-07 18:16] LABS: ALT 19 U/L (4-49); AST 47 U/L (17-59); African American GFR (CKD) >90 (>60 ml/min/1.73 sqM); Albumin 4.7 g/dL (3.5-5.0); Alkaline Phosphatase 98 U/L (38-126); Anion Gap 21 mmol/L; Blood Urea Nitrogen 31 mg/dL (9-20); Calcium 9.2 mg/dL (8.4-10.2); Carbon Dioxide 15 mmol/L (22-30); Chloride 101 mmol/L (98-107); Glucose 179 mg/dL (74-99); Lipase 310 U/L (23-300); Non-African American GFR(CKD) 82 (>60 ml/min/1.73 sqM); Potassium 4.4 mmol/L (3.5-5.1); Sodium 137 mmol/L (137-145); Total Bilirubin 0.8 mg/dL (0.2-1.3); Total Protein 7.7 g/dL (6.3-8.2)
--- NOTE | 2024-04-07 18:27 | CT ---
EXAMINATION TYPE: CT abdomen pelvis w con CT DLP: 1328.3 mGycm, Automated exposure control for dose reduction was used. DATE OF EXAM: 04/07/2024 6:12 PM COMPARISON: CT abdomen pelvis most recent from 10/20/2023, 09/07/2021 CLINICAL INDICATION: Male, 63 years old with history of trauma; abdominal pain, HIV + TECHNIQUE: Axial CT abdomen pelvis w con;Sagittal and coronal reformats were created on a separate w orkstation. Contrast used:100 cc mL of Isovue 370 with IV Contrast, (none if empty) Oral contrast used: without Oral Contrast (none if empty) FINDINGS: LOWER CHEST: Unremarkable ABDOMEN LIVER: Unremarkable GALLBLADDER AND BILE DUCTS: Unremarkable. PANCREAS: Unremarkable. SPLEEN: Unremarkable. ADRENAL GLANDS: Unremarkable. KIDNEYS AND URETERS: Atrophic right kidney compared to left. No evidence of hydronephrosis or renal c alculus. The ureters are unremarkable. PELVIS BLADDER: Unremarkable REPRODUCTIVE: Unremarkable. ABDOMEN & PELVIS STOMACH AND BOWEL: No evidence of bowel obstruction. PERITONEUM/RETROPERITONEUM: No evidence of pneumoperitoneum or free fluid. VASCULATURE: Aortic dissection extending from the ascending aorta which is partially visualized and e xtends inferiorly into the descending thoracic aorta. The celiac axis and superior mesenteric artery may are coming off the true lumen however there is collapse of the true lumen at this level obstructi ng flow of contrast into these vessels. The vessels do have contrast within them suggesting partial o bstruction. Dissection terminating in the left common iliac artery and right common femoral artery. MUSCULOSKELETAL: No acute osseous abnormalities, transitional L5 vertebrae with pseudoarthrosis of th e sacrum on the right with the transverse process.. LYMPH NODES: No gross evidence for lymphadenopathy. SOFT TISSUE/ABDOMINAL WALL: Unremarkable IMPRESSION: Aortic dissection partially visualized in the ascending thoracic aorta with extension into the descen ding thoracic aorta and through the abdominal aorta. Terminating in the left common iliac and right c ommon femoral arteries. The celiac axis, superior mesenteric and inferior mesenteric arteries are com ing off the true lumen which is collapsed at their origin likely obstructing flow into these major ve ssels. Complete evaluation of the chest was CTA chest recommended. Vascular surgical consultation rec ommended. . Findings communicated to Dr. Ward Ross on 04/07/2024 6:[address] Ned Tovar. [facility], , 04/07/2024 6:24 PM
[2024-04-07] MEDS: SODIUM CHLORIDE 0.9% 1,000 ML IV STA (18:28)
[2024-04-07 18:31] LABS: T4, Free (Free Thyroxine) 1.47 ng/dL (0.78-2.19)
[2024-04-07 18:50] LABS: Prothrombin Time 10.6 sec (10.0-12.5)
[2024-04-07 19:06] LABS: Alcohol 416 mg/dL
--- NOTE | 2024-04-07 19:11 | CT ---
EXAMINATION TYPE: CT angio chest CT DLP: 1171.1 mGycm, Automated exposure control for dose reduction was used. DATE OF EXAM: 04/07/2024 7:02 PM COMPARISON: CT abdomen same day CLINICAL INDICATION:Male, 63 years old with history of eval aorta; Dissection. TECHNIQUE/CONTRAST: CTA scan of the thorax is performed with IV Contrast, patient injected with 80ml mL of Isovue 370, MA P images are created and reviewed these are created on a separate workstation.. FINDINGS: Pulmonary Artery: There is no evidence for a filling defect within the pulmonary vasculature to sugge st acute pulmonary embolism. The pulmonary artery is of normal size. Lungs/Pleura: No evidence of focal consolidation, pleural effusion or pneumothorax. Airway: Large airways are patent. Heart: Heart is within normal limits for size. Vasculature: There is an intimal flap identified arising from the proximal descending aorta near the sinotubular junction. No evidence of extension into the super aortic vessels. The flap extends throug hout the aorta and into the abdomen as described on recent exam. The great vessels are seen arising f rom the suspected true lumen. Mediastinum: No gross evidence of adenopathy. Musculoskeletal: No acute osseous abnormalities. Median sternotomy wires identified Soft Tissues: Unremarkable. Lower neck: No significant findings. IMPRESSION: [place] type A aortic dissection arising from the proximal aortic arch. No evidence of extension int o the supra-aortic vessels. [facility], , 04/07/2024 7:08 PM
--- NOTE | 2024-04-07 20:19 | XR ---
EXAMINATION TYPE: XR chest 1V portable DATE OF EXAM: 04/07/2024 8:11 PM CLINICAL INDICATION:Male, 63 years old with history of trauma; [facility] COMPARISON: Chest radiographs from 10/23/2023 TECHNIQUE: XR chest 1V portable Frontal view of the chest. FINDINGS: Lungs/Pleura: There is no evidence of pleural effusion, focal consolidation, or pneumothorax. Pulmonary vascularity: Unremarkable. Heart/mediastinum: Cardiomediastinal silhouette is unremarkable. Musculoskeletal: Redemonstrated remote right posterior healing rib fractures. Midline sternotomy wire s are noted. IMPRESSION: 1. No acute cardiopulmonary disease/process. 2. Redemonstrated remote right posterior healing rib fractures. [facility], , 04/07/2024 8:17 PM
--- NOTE | 2024-04-07 20:20 | XR ---
EXAMINATION TYPE: XR knee complete bilateral DATE OF EXAM: 04/07/2024 8:11 PM CLINICAL INDICATION:Male, 63 years old with history of fall; [facility] COMPARISON: None. TECHNIQUE: The Bilateral knee(s) was examined in Frontal, lateral and oblique projections. FINDINGS: No evidence of any acute osseous pathology, soft tissue swelling, or joint effusion is no emely. IMPRESSION: 1. No acute osseous pathology. 2. Mild tricompartmental osteoarthritic changes present bilaterally. [facility], , 04/07/2024 8:18 PM
--- NOTE | 2024-04-07 20:21 | XR ---
EXAMINATION TYPE: XR pelvis AP view DATE OF EXAM: 04/07/2024 8:11 PM CLINICAL INDICATION:Male, 63 years old with history of Trauma; [facility] COMPARISON: Hip radiograph 03/18/2024. TECHNIQUE: The pelvis was examined in a single projection. FINDINGS: Contrast within the bladder lumen obscures the sacrum. There is no evidence of fracture or dislocation. There is no soft tissue abnormality. No abnormal calcifications are present. The spine appears intact. Left hip prosthesis is identified and intact. IMPRESSION: No acute osseous pathology as visualized. [facility], , 04/07/2024 8:19 PM
[2024-04-07 20:31] LABS: Amphetamine Screen,Urine Not Detected (NotDetected); Barbiturate Screen,Urine Not Detected (NotDetected); Benzodiazepines Screen,Urine Not Detected (NotDetected); Cocaine Screen,Urine Not Detected (NotDetected); Methadone Screen, Urine Not Detected (NotDetected); Opiate Screen,Urine Not Detected (NotDetected); Oxycodone Screen, Urine Not Detected (NotDetected); Phencyclidine Screen,Urine Not Detected (NotDetected); Tricyclic Antidepressant,Urine Not Detected (NotDetected); Urn Cannabinoid Scrn Not Detected (NotDetected)
[2024-04-07] MEDS ORDERED: HYDROmorphone 0.5 MG/0.5 ML SYRINGE IVP PRN (20:44)
[2024-04-07] MEDS ORDERED: NALOXONE 0.4 MG/ML 1 ML VIAL IV PRN (20:44)
[2024-04-07] MEDS ORDERED: ACETAMINOPHEN TAB 325 MG TAB PO PRN (20:44)
[2024-04-07] MEDS ORDERED: LORazepam 1 MG TAB PO PRN (20:46)
[2024-04-07] MEDS ORDERED: LORazepam 2 MG/ML INJ IV PRN (20:46)
[2024-04-07] MEDS ORDERED: LORazepam 0.5 MG TAB PO PRN (20:46)
[2024-04-07] MEDS: SODIUM CHLORIDE 0.9% 1,000 ML IV SCH (20:47)
[2024-04-07] MEDS: LORazepam 1 MG TAB PO PRN (21:18)
[2024-04-07] MEDS: THIAMINE 100 MG/ML 2 ML VIAL IM STA (21:19)
[2024-04-07] MEDS ORDERED: HEPARIN SODIUM 1,000 UN/ML (10ML VL) IV PRN (21:43)
[2024-04-07] MEDS: HEPARIN SODIUM 1,000 UN/ML (10ML VL) IV ONE (22:05)
[2024-04-07] MEDS: HEPARIN SOD,PORK IN 0.45% NACL 25,000 UNIT in 0.45% NACL 1 250ML.BAG IV SCH (22:21)
[2024-04-07] MEDS: GABAPENTIN 300 MG CAP PO SCH (22:29)
[2024-04-07] MEDS: MORPHINE SULFATE 4 MG/ML SYRINGE IVP PRN (22:30)
[2024-04-07] MEDS: ONDANSETRON 4 MG/2 ML VIAL IVP PRN (22:38)
--- NOTE | 2024-04-08 00:15 | P.HPIM ---
History of Present Illness H&P Date: 04/07/24 Patient is a 63-year-old male with history of EtOH use (no history of delirium tremens or admission for ETOH intoxication. Last drink was 1 PM today), A-fib (on Eliquis), aortic dissection type a (managed by Dr. Beal since December 2023), and mitral valve replacement came in for a fall. He reports that he was on a trip up [place] with his and had been drinking since Sunday and had multiple falls during that trip. However yesterday, he tried to walk upstairs but fell and hit his head with associated loss of consciousness which caused him to seek care. He also reports weakness of his legs and pain on his knees and hips. He denies nausea and vomiting, hematemesis, hematochezia, chest pain, shortness of breath, jaundice, tremors, changes in sensation, changes in vision, or facial asymmetry. In the emergency room, EKG showed A-fib with RVR with a rate of 167, QTc 387, no ST-T changes. CT head showed no acute intracranial process. Chest x-ray showed no acute cardiopulmonary process. Knee x-ray showed no acute fractures or process. Pelvic x-ray showed no acute fractures or process. Chest CT revealed Esteban type A aortic dissection arising from the proximal aortic arch. Abdo men CT showed aortic dissection extends into the abdominal aorta and terminates in the left common iliac and right common femoral arteries. Sodium 137 bicarb 15 glucose 179 lipase 310 TSH 0.3 Free T41.47 PTT 19 PT 10 INR 1. Urine tox negative. Serum alcohol 416. On admission patient is afebrile at 98.9 Fahrenheit tachycardic at 170 with a respiratory rate of 20 blood pressure normotensive at 105/85 oxygen saturation 96% at room air ED documentation reviewed Review of systems: Pertinent positives and negatives as discussed in HPI, a complete review of systems was performed and all other systems are negative. Family history: Mother no known significant medical history. Father no known significant medical history Social history: Tobacco: Denies tobacco use Alcohol: Current alcohol use. Has half a gallon of vodka during binge drinking episodes Recreational drugs: Occasional marijuana use Travel: No recent travel Occupation: Disabled Physical examination: Vital signs reviewed General: non toxic, no distress, appears older stated age, normal weight Derm: no unusual rashes/lesions, warm Head: atraumatic, normocephalic, symmetric Eyes: EOMI, no lid lag, anicteric sclera, pupils equal round reactive to light ENT: Nose and ears atraumatic Neck: No cervical lymphadenopathy, trachea midline, supple Mouth: no lip lesion, mucus membranes moist Cardiovascular: S1S2 irregularly irregular, no murmur Lungs: CTA bilateral, no rhonchi, no rales, no accessory muscle use Abdominal: soft, generalized abdominal tenderness on light palpation, no guarding Ext: muscle strength 4 out of 5 in upper extremities 5/5 in lower extremities grossly, lower extremity hip ROM limited by pain, no gross muscle atrophy, no contractures, positive dorsalis pedis pulse bilateral, no edema Neuro: CN II-XI grossly intact, no gross focal neuro deficits Psych: Alert, oriented, appropriate affect and mood Assessment/Plan: #. EtOH intoxication, impending withdrawal Serum alcohol 416, lipase 310 -Continue with Ativan per CIME protocol -Continue with IVF NS 0.9% at 75 cc/h (judicious use of IVFs in setting of systolic CHF) -Continue with thiamine 100 mg p.o. OD -Continue with Zofran 4 mg IVP every 6 as needed for nausea and vomiting -Encourage oral hydration and feeding -CBC, CMP, mag at a.m. -Fall precautions -Cardiac monitoring #. Aortic dissection, appearing stable -ED physician discussed case in detail with patient's Cardiology and [facility] team who reviewed the images and noted no new changes in the dissection -Consult Cardiology as patient previously following with Dr Morales #. A-fib with RVR -Holding Eliquis for now pending Cardiology evaluation for dissection -Cardizem 10 mg/h infusion -Consult cardiology #. Mechanical fall w/ loss of consciousness -CT head and chest, knee, and pelvic x-rays were unremarkable. Patient experienced loss of consciousness and complains of knee hip and head pain. -Pain control with morphine 4 mg ibuprofen SQ for as needed -Obtain Echocardiogram -PT consult for weakness #. Hyperglycemia No Hx of DM. -ISS sliding scale <70kg -POC glucose checks ACHS -A1c and CMP at AM #. Normocytic anemia due to ETOH intake -Monitor with CBC Chronic conditions: HIV, asthma, aortic dissection, PTSD, GERD, hypertension, anxiety, depression, CHF with reduced ejection fraction (35% echo done August 2022) DVT prophylaxis: SCDs GI prophylaxis: Protonix 40 mg IV OD The patient is admitted with an anticipated greater than 2 midnight stay for evaluation of A-fib and EtOH intoxication CODE STATUS: Full Discussed with: Patient Anticipated discharge place: Home Past Medical History Past Medical History: Asthma, Heart Failure, Fibromyalgia, GERD/Reflux, Hypertension, Prostate Disorder Additional Past Medical History / Comment(s): Mitral valve disease and a previous mitral valve surgery repair HIV positive, past HTN and recently low blood pressures, BPH, R ankle gout, chronic nausea, bilateral glaucoma, DDD, chronic pain syndrome, chronic low back and bilateral hip pain and occasional cervical pain, DDD, lumbar stenosis/spondylosis, abdominal hernia, previous history of drug overdose. PTSD History of Any Multi-Drug Resistant Organisms: None Reported Past Surgical History: Heart Catheterization, Hernia Repair Additional Past Surgical History / Comment(s): Mitral valve repair at [facility], R inguinal hernia x2, L inguinal hernia, epidural injections to back, hip injections, RFAs, spinal cord stimulator trial-removed, Past Anesthesia/Blood Transfusion Reactions: No Reported Reaction Past Psychological History: Anxiety, Depression, PTSD Smoking Status: Former smoker Past Alcohol Use History: Occasional Past Drug Use History: Marijuana, Prescription Drug Abuse - Past Family History Father History Unknown: Yes Additional Family Medical History / Comment(s): Father was injured at work and of complication during his hospitalization. Mother Additional Family Medical History / Comment(s): Mother is from alcoholism. Brother(s) Additional Family Medical History / Comment(s): alcohol and HF Medications and Allergies Home Medications Medication Instructions Recorded Confirmed Type Ondansetron [Zofran ODT] 8 mg PO BID PRN 05/18/18 04/07/24 History Bictegrav/Emtricit/Tenofov Ala 1 tab PO DAILY 09/07/21 04/07/24 History [Biktarvy 50-200-25 mg Tablet] Darunavir/Cobicistat [Prezcobix 1 tab PO DAILY 09/07/22 04/07/24 History 800 mg-150 mg Tablet] Ipratropium-Albuterol Nebulize 3 ml INHALATION RT-BID PRN 10/23/23 04/07/24 History [Duoneb 0.5 mg-3 mg/3 ml Soln] Spironolactone [Aldactone] 25 mg PO DAILY #30 tab 10/24/23 04/07/24 Rx Albuterol Sulfate [Albuterol 1 - 2 puff INHALATION RT-QID PRN 12/27/23 04/07/24 History Sulfate Hfa] Empagliflozin [Jardiance] 10 mg PO DAILY 12/27/23 04/07/24 History Sacubitril/Valsartan [Entresto 24 1 tab PO BID 12/27/23 04/07/24 History mg-26 mg Tablet] Tamsulosin HCl [Flomax] 0.4 mg PO HS 12/27/23 04/07/24 History Fenofibrate Nanocrystallized 48 mg PO DAILY 03/17/24 04/07/24 History [Fenofibrate] Levothyroxine Sodium 200 mcg PO DAILY 03/17/24 04/07/24 History Pantoprazole [Protonix] 40 mg PO DAILY 03/17/24 04/07/24 History Rosuvastatin Calcium 40 mg PO DAILY 03/17/24 04/07/24 History hydrOXYzine HCL 10 mg PO Q6H PRN 03/17/24 04/07/24 History oxyCODONE-APAP 10-325MG [Percocet 1 tab PO Q6HR PRN 3 Days #12 tab 03/20/24 04/07/24 Rx 10-325 mg] Apixaban [Eliquis] 2.5 mg PO BID 04/03/24 04/07/24 History Bimatoprost [Lumigan 0.01% Ophth 1 drop BOTH EYES HS 04/03/24 04/07/24 History Soln] Bumetanide [BUMEX] 1 mg PO DAILY PRN 04/03/24 04/07/24 History Colchicine 0.6 mg PO DIRECTED PRN 04/03/24 04/07/24 History Gabapentin 600 mg PO TID 04/03/24 04/07/24 History Losartan [Cozaar] 25 mg PO DAILY 04/03/24 04/07/24 History Metoprolol Succinate (ER) [Toprol 75 mg PO DAILY 04/03/24 04/07/24 History Xl] allopurinoL 100 mg PO DAILY 04/03/24 04/07/24 History Allergies Allergy/AdvReac Type Severity Reaction Status Date / Time abacavir [From Ziagen] Allergy Anaphylaxis Verified 04/07/24 16:59 efavirenz [From Sustiva] Allergy Anaphylaxis Verified 04/07/24 16:59 levofloxacin Allergy Itching Verified 04/07/24 16:59 hydrocodone AdvReac Rapid Verified 04/07/24 16:59 [From Hysingla ER] Heart Rate morphine AdvReac Itching Verified 04/07/24 16:59 sulfamethoxazole AdvReac HIGH Verified 04/07/24 16:59 [From Bactrim] CREATININE LEVEL trimethoprim [From Bactrim] AdvReac HIGH Verified 04/07/24 16:59 CREATININE Physical Exam Vitals: Vital Signs Temp Pulse Resp BP Pulse Ox 04/07/24 20:54 154 H 18 94/71 98 04/07/24 19:35 163 H 18 115/54 100 04/07/24 18:30 152 H 20 94/65 99 04/07/24 16:54 98.9 F 170 H 20 105/85 96 Intake and Output 04/07/24 04/07/24 04/07/24 06:59 14:59 22:59 Intake Total 13.458 Balance 13.458 Intake: Intake, IV Titration 13.458 Amount Diltiazem 125 mg In 13.458 Sodium Chloride 0.9% 100 ml @ 5 MG/HR 5 mls/hr IV .Q24H [facility] Rx#:[id number] Other: Weight 71.214 kg Results CBC & Chem 7: 04/08/24 01:09 04/07/24 17:21 Labs: Abnormal Lab Results - Last 24 Hours (Table) 04/07/24 Range/Units 17:21 Carbon Dioxide 15 L (22-30) mmol/L BUN 31 H (9-20) mg/dL Glucose 179 H (74-99) mg/dL Lipase 310 H (23-300) U/L TSH 0.306 L (0.465-4.680) mIU/L Serum Alcohol 416 H* mg/dL
[2024-04-08] MEDS: LORazepam 1 MG TAB PO PRN (01:06)
[2024-04-08 01:28] LABS: Basophils % (A) 1 %; Eosinophils % (A) 0 %; HCT 35.1 % (39.0-53.0); HGB 11.8 gm/dL (13.0-17.5); Lymphocytes # (A) 1.9 k/uL (1.0-4.8); Lymphocytes % (A) 27 %; MCH 32.7 pg (25.0-35.0); MCHC 33.6 g/dL (31.0-37.0); MCV 97.5 fL (80.0-100.0); Mean Platelet Volume 7.8; Monocytes # (A) 0.6 k/uL (0-1.0); Monocytes % (A) 8 %; Neutrophils # (A) 4.2 k/uL (1.3-7.7); Neutrophils % (A) 61 %; Platelet Count 218 k/uL (150-450); RDW 14.7 % (11.5-15.5); WBC 6.9 k/uL (3.8-10.6)
[2024-04-08] MEDS ORDERED: DEXTROSE 50% SYRINGE 50 ML IVP PRN ×2 (04:27)
[2024-04-08] MEDS: DEXTROSE 5% IN WATER 100 ML with AMIODARONE 150 MG IV ONE ×2 (04:32→06:00)
[2024-04-08] MEDS: AMIODARONE 360 MG in DEXTROSE 5% IN WATER 200 ML IV ONE (04:45)
[2024-04-08] MEDS: MIDAZOLAM 2 MG/2 ML VIAL IV ONE ×3 (05:43→09:26)
[2024-04-08 06:19] LABS: Basophils % (A) 0 %; Eosinophils % (A) 0 %; HCT 34.7 % (39.0-53.0); HGB 11.5 gm/dL (13.0-17.5); Lymphocytes # (A) 0.9 k/uL (1.0-4.8); Lymphocytes % (A) 10 %; MCH 32.4 pg (25.0-35.0); MCHC 33.2 g/dL (31.0-37.0); MCV 97.6 fL (80.0-100.0); Mean Platelet Volume 8.4; Monocytes # (A) 0.4 k/uL (0-1.0); Monocytes % (A) 4 %; Neutrophils # (A) 7.8 k/uL (1.3-7.7); Neutrophils % (A) 84 %; Platelet Count 189 k/uL (150-450); RBC 3.56 m/uL (4.30-5.90); RDW 14.8 % (11.5-15.5); WBC 9.3 k/uL (3.8-10.6)
[2024-04-08 06:28] LABS: Glucose,Whole Blood 216 mg/dL (70-110)
--- NOTE | 2024-04-08 06:35 | P.CNPUL ---
History of Present Illness Consult date: 04/08/24 Requesting physician: Colt Ferraro Reason for consult: other (ICU management) Chief complaint: Fall History of present illness: Patient is a 63-year-old male with past medical history significant for alcoholism, atrial fibrillation, CVA/TIA, dissecting aortic aneurysm, mitral valve repair, cardiomyopathy, prior drug overdose, HIV, asthma/COPD, among other things. Of note, patiently worked up at outside hospital for CVA/TIA symptoms in November,. Found to have a large dissecting type a aortic aneurysm, he was initially transferred to [facility] and has been following with Dr. Beal. Patient also recently underwent left total hip arthroplasty in March,. I was contacted by [facility] physicians early this morning, they were concerned that the patient would be best monitored in the intensive care unit. Patient in atrial fibrillation with rapid ventricular response, which has been resistant to multiple antiarrhythmics. Also, has a large chronic dissecting proximal aortic aneurysm. He is acutely intoxicated. Patient went up north on Sunday and returned last night. He did not bring his medications with him. He also was drinking heavily. Drinking 1/5 a day. His alcohol level was greater than 400 on arrival. He fell multiple times, including down 1 flight of stairs. Approximately 4 steps. May have lost consciousness. Presented the emergency department yesterday evening. He was found to be in atrial fibrillation with rapid ventricular response. Cardiology did attempt Cardizem infusion, this induced some hypotension. Patient was switched to an amiodarone infusion and was bolused 150 mg over 10 minutes. Also, continued on the amiodarone protocol. A-fib RVR was resistant to antiarrhythmics. Patient has known history of A-fib. He does have a dissecting aortic aneurysm. This was redemonstrated on chest CTA done last night. There is a extensive dissecting aortic aneurysm of the proximal aortic arch. No evidence of extension into the super aortic vessels. Reportedly felt to be stable from previous exam. Otherwise, no acute pulmonary disease. CBC: WBC count 6.9, hemoglobin 11.8, hematocrit 35.1, platelets 218. CMP: Sodium 137, potassium 4.4, chloride 101, serum bicarb 15, BUN 31, creatinine 0.99, glucose 179. Lipase 310. Serum EtOH 416. Urine toxicology screen otherwise negative. Patient is currently being evaluated in the emergency department. He is alert and oriented, actually mentation is better than expected, considering his alcohol level. He remains in atrial fibrillation after the above-mentioned interventions. Cardiology is recommending cardioversion. Blood pressure currently 89/77 mmHg. Heart rate remains tachycardic in the 160s to 170s. Reports some substernal chest pain. He is nauseas. Appears mildly tachypneic. SpO2 99 %. On room air. Normal saline infusing at 75 mL/h. Patient is going to be given conscious sedation, and cardioversion will be performed. Patient will be transferred to the intensive care unit. Review of Systems Constitutional: Denies chills, Denies fever, Denies weight gain, Denies weight loss Cardiovascular: Reports chest pain, Reports decreased exercise tolerance, Reports palpitations, Reports rapid heart beat, Reports shortness of breath, Denies leg edema, Denies orthopnea, Denies paroxysmal nocturnal dyspnea, Denies syncope Respiratory: Reports dyspnea, Denies congestion, Denies cough, Denies cough with sputum, Denies wheezing Gastrointestinal: Reports nausea, Denies abdominal pain, Denies coffee ground emesis, Denies hematemesis, Denies hematochezia, Denies melena, Denies vomiting Genitourinary: Denies dysuria Musculoskeletal: Denies limitation of motion Integumentary: Denies rash Neurological: Denies balance difficulties, Denies change in mentation, Denies confusion, Denies head injury, Denies lack of coordination, Denies seizures, Denies syncope, Denies tremors, Denies visual changes Psychiatric: Reports anxiety, Reports depression, Denies suicidal ideation Past Medical History Past Medical History: Asthma, Heart Failure, Fibromyalgia, GERD/Reflux, Hypertension, Prostate Disorder Additional Past Medical History / Comment(s): Mitral valve disease and a previous mitral valve surgery repair HIV positive, past HTN and recently low blood pressures, BPH, R ankle gout, chronic nausea, bilateral glaucoma, DDD, chronic pain syndrome, chronic low back and bilateral hip pain and occasional cervical pain, DDD, lumbar stenosis/spondylosis, abdominal hernia, previous history of drug overdose. PTSD History of Any Multi-Drug Resistant Organisms: None Reported Past Surgical History: Heart Catheterization, Hernia Repair Additional Past Surgical History / Comment(s): Mitral valve repair at [facility], R inguinal hernia x2, L inguinal hernia, epidural injections to back, hip injections, RFAs, spinal cord stimulator trial-removed, Past Anesthesia/Blood Transfusion Reactions: No Reported Reaction Past Psychological History: Anxiety, Depression, PTSD Smoking Status: Former smoker Past Alcohol Use History: Occasional Past Drug Use History: Marijuana, Prescription Drug Abuse - Past Family History Father History Unknown: Yes Additional Family Medical History / Comment(s): Father was injured at work and of complication during his hospitalization. Mother Additional Family Medical History / Comment(s): Mother is from alcoholism. Brother(s) Additional Family Medical History / Comment(s): alcohol and HF Medications and Allergies Home Medications Medication Instructions Recorded Confirmed Type Ondansetron [Zofran ODT] 8 mg PO BID PRN 05/18/18 04/07/24 History Bictegrav/Emtricit/Tenofov Ala 1 tab PO DAILY 09/07/21 04/07/24 History [Biktarvy 50-200-25 mg Tablet] Darunavir/Cobicistat [Prezcobix 1 tab PO DAILY 09/07/22 04/07/24 History 800 mg-150 mg Tablet] Ipratropium-Albuterol Nebulize 3 ml INHALATION RT-BID PRN 10/23/23 04/07/24 History [Duoneb 0.5 mg-3 mg/3 ml Soln] Spironolactone [Aldactone] 25 mg PO DAILY #30 tab 10/24/23 04/07/24 Rx Albuterol Sulfate [Albuterol 1 - 2 puff INHALATION RT-QID PRN 12/27/23 04/07/24 History Sulfate Hfa] Empagliflozin [Jardiance] 10 mg PO DAILY 12/27/23 04/07/24 History Sacubitril/Valsartan [Entresto 24 1 tab PO BID 12/27/23 04/07/24 History mg-26 mg Tablet] Tamsulosin HCl [Flomax] 0.4 mg PO HS 12/27/23 04/07/24 History Fenofibrate Nanocrystallized 48 mg PO DAILY 03/17/24 04/07/24 History [Fenofibrate] Levothyroxine Sodium 200 mcg PO DAILY 03/17/24 04/07/24 History Pantoprazole [Protonix] 40 mg PO DAILY 03/17/24 04/07/24 History Rosuvastatin Calcium 40 mg PO DAILY 03/17/24 04/07/24 History hydrOXYzine HCL 10 mg PO Q6H PRN 03/17/24 04/07/24 History oxyCODONE-APAP 10-325MG [Percocet 1 tab PO Q6HR PRN 3 Days #12 tab 03/20/24 04/07/24 Rx 10-325 mg] Apixaban [Eliquis] 2.5 mg PO BID 04/03/24 04/07/24 History Bimatoprost [Lumigan 0.01% Ophth 1 drop BOTH EYES HS 04/03/24 04/07/24 History Soln] Bumetanide [BUMEX] 1 mg PO DAILY PRN 04/03/24 04/07/24 History Colchicine 0.6 mg PO DIRECTED PRN 04/03/24 04/07/24 History Gabapentin 600 mg PO TID 04/03/24 04/07/24 History Losartan [Cozaar] 25 mg PO DAILY 04/03/24 04/07/24 History Metoprolol Succinate (ER) [Toprol 75 mg PO DAILY 04/03/24 04/07/24 History Xl] allopurinoL 100 mg PO DAILY 04/03/24 04/07/24 History Allergies Allergy/AdvReac Type Severity Reaction Status Date / Time abacavir [From Ziagen] Allergy Anaphylaxis Verified 04/07/24 16:59 efavirenz [From Sustiva] Allergy Anaphylaxis Verified 04/07/24 16:59 levofloxacin Allergy Itching Verified 04/07/24 16:59 hydrocodone AdvReac Rapid Verified 04/07/24 16:59 [From Hysingla ER] Heart Rate morphine AdvReac Itching Verified 04/07/24 16:59 sulfamethoxazole AdvReac HIGH Verified 04/07/24 16:59 [From Bactrim] CREATININE LEVEL trimethoprim [From Bactrim] AdvReac HIGH Verified 04/07/24 16:59 CREATININE Physical Exam Vitals: Vital Signs Temp Pulse Resp BP Pulse Ox 04/08/24 05:30 165 H 24 105/89 04/08/24 05:00 89/77 04/08/24 04:50 152 H 20 89/77 04/08/24 04:37 99.5 F 04/08/24 04:30 158 H 24 90/60 04/08/24 04:00 161 H 26 H 97/54 04/08/24 03:50 168 H 39 H 97/54 04/08/24 03:30 165 H 24 102/90 04/08/24 03:00 160 H 24 81/52 04/08/24 02:43 163 H 24 76/60 04/08/24 02:00 160 H 18 102/68 04/08/24 00:25 176 H 18 93/69 100 04/07/24 22:35 154 H 18 104/59 100 04/07/24 20:54 154 H 18 94/71 98 04/07/24 19:35 163 H 18 115/54 100 04/07/24 18:30 152 H 20 94/65 99 04/07/24 16:54 98.9 F 170 H 20 105/85 96 Intake and Output 04/07/24 04/07/24 04/08/24 14:59 22:59 06:59 Intake Total 13.458 Balance 13.458 Intake: Intake, IV Titration 13.458 Amount Diltiazem 125 mg In 13.458 Sodium Chloride 0.9% 100 ml @ 5 MG/HR 5 mls/hr IV .Q24H [facility] Rx#:[id number] Other: Weight 71.214 kg GENERAL EXAM: Alert, 63-year-old white male, sitting up in bed, tachypneic, emesis basin on his lap, remains tachycardic on bedside monitor ranging 160 to 170 bpm HEAD: Normocephalic and atraumatic EYES: Normal reaction of pupils, equal size. NOSE: Clear with pink turbinates. THROAT: No erythema or exudates. NECK: No masses, no JVD. CHEST: No chest wall deformity. remote appearing midsternal incision LUNGS: Equal air entry with no crackles, wheeze, rhonchi or dullness. On room air. Tachypneic.. CVS: S1 and S2 normal with no audible murmur, irregular rhythm. No extra heart sounds ABDOMEN: No hepatosplenomegaly, active bowel sounds, no guarding or rigidity. SPINE: No scoliosis or deformity SKIN: No rashes CENTRAL NERVOUS SYSTEM: No focal deficits, tone is normal in all 4 extremities. EXTREMITIES: There is no peripheral edema, clubbing, or cyanosis. Peripheral pulses are intact. Results - Laboratory Findings CBC and BMP: 04/08/24 01:09 04/07/24 17:21 PT/INR, D-dimer PT 10.6 sec (10.0-12.5) 04/07/24 17:21 INR 1.0 (<1.2) 04/07/24 17:21 Abnormal lab findings: Abnormal Labs 04/07/24 04/07/24 04/08/24 17:21 22:09 01:09 RBC 3.60 L Hgb 11.8 L Hct 35.1 L APTT 19.0 L Carbon Dioxide 15 L BUN 31 H Glucose 179 H Lipase 310 H TSH 0.306 L Free T3 pg/mL 1.60 L Serum Alcohol 416 H* - Diagnostic Findings Chest x-ray: image reviewed CT scan - chest: image reviewed Assessment and Plan Assessment: Atrial fibrillation with rapid ventricular response, initially trialed on Cardizem infusion which produced hypotension, then transitioned to amiodarone protocol with 150 mg bolus. Patient remains in atrial fibrillation with rapid ventricular response. Blood pressure is borderline hypotensive. Currently symptomatic. Plan is for cardioversion, per cardiology recommendation Acute dyspnea, secondary to above Acute alcohol intoxication, serum alcohol level 416 on arrival. Last reported drink yesterday afternoon Dissecting aortic aneurysm, type a, reportedly follows outpatient with cardiovascular surgery History of valvular heart disease and mitral valve repair, at outside facility History of atrial fibrillation History of drug overdose and ventilator dependent respiratory failure History of alcoholism History of HIV, on HAART, last CD4 count reportedly greater than 300 History of avascular necrosis and status post left total hip arthroplasty 0 03/18/2024 History of asthma/COPD, stable Plan: Patient's medications, labs, imaging reviewed Patient will be transferred to the intensive care unit once bed available Atrial fibrillation with RVR currently being managed by cardiology. Previously tried on Cardizem infusion which induced hypotension. This was stopped. Patient then started on the amiodarone protocol with 150 mg IV bolus. Unfortunately, patient remains in RVR. Reportedly now hypotensive and symptomatic. Cardioversion is going to be attempted. Transthoracic echocardiogram ordered. Patient is currently acutely intoxicated. Will monitor CIWA throughout the next 72 hours Cardiovascular surgery to follow in regards to patient's chronic dissecting aneurysm Eliquis, currently on hold until, until evaluation by above. GI rophylaxis: Protonix Patient's condition is currently critical, he is going to be monitored in the intensive care unit. Prognosis guarded. I have personally seen and examined the patient, performed the documentation and the assessment and plan as written. Number of minutes spent on the visit:20 Time with Patient: Greater than 30
[2024-04-08 06:46] LABS: ALT 20 U/L (4-49); AST 49 U/L (17-59); African American GFR (CKD) 79 (>60 ml/min/1.73 sqM); Albumin 4.2 g/dL (3.5-5.0); Alkaline Phosphatase 100 U/L (38-126); Anion Gap 9 mmol/L; Blood Urea Nitrogen 30 mg/dL (9-20); Carbon Dioxide 23 mmol/L (22-30); Chloride 104 mmol/L (98-107); Glucose 189 mg/dL (74-99); Magnesium 1.8 mg/dL (1.6-2.3); Non-African American GFR(CKD) 68 (>60 ml/min/1.73 sqM); Potassium 4.1 mmol/L (3.5-5.1); Sodium 136 mmol/L (137-145); Total Protein 7.1 g/dL (6.3-8.2)
[2024-04-08] MEDS ORDERED: Magnesium Replacement Protocol 1 EACH MISC MISCELLANE PRN (06:50)
[2024-04-08] MEDS: LEVOTHYROXINE 100 MCG TAB PO SCH (07:19)
[2024-04-08] MEDS: INSULIN ASPART (NovoLOG) 100 UNIT/ML VIAL SQ SCH (07:19)
[2024-04-08] MEDS: MAGNESIUM SULFATE-D5W PMX 1 GM in DEXTROSE/WATER 1 100ML.BAG IVPB ONE (07:20)
[2024-04-08] MEDS ORDERED: APIXABAN 2.5 MG TABLET PO SCH (09:00)
[2024-04-08] MEDS: ESMOLOL IN SODIUM CHLORIDE PMX 2.5 GM in SALINE 1 250ML.BAG IV SCH (09:37)
[2024-04-08] MEDS: ZINC OXIDE PASTE (Z-GUARD) 1 APPLIC TOPICAL SCH (09:47)
[2024-04-08] MEDS: NON FORMULARY DRUG (Bictegrav/Emtricit/Tenofov Ala [Biktarvy 50-200-25 Mg Tablet] 1 EACH T PO SCH (09:48)
[2024-04-08] MEDS: fentaNYL (PF) 50 MCG/ML 2 ML AMP IVP STA (09:48)
[2024-04-08] MEDS: [UNRECOGNIZED DRUG - OTHER] PO SCH (09:49)
[2024-04-08] MEDS: DARUNAVIR PO SCH (09:49)
[2024-04-08] MEDS: COBICISTAT PO SCH (09:49)
--- NOTE | 2024-04-08 09:59 | P.CRDCN ---
History of Present Illness Consult date: 04/08/24 History of present illness: HISTORY OF PRESENTING ILLNESS Patient is a 63-year-old male who is known to Dr. Morales. He has a past medical history of HIV, MSM, alcoholism, paroxysmal atrial fibrillation, CVA/TIA. In December 2023 he had an outpatient CTA which showed 70% stenosis in proximal LAD along with that it also showed type a aortic dissection with a dissection flap arising near the sinotubular junction. Apparently carotids were not involved. She does have a prior history of mitral valve repair in 2000. He also has cardiomyopathy with a EF of around 35 to 40%. Prior history of drug abuse. This time he presented to the hospital because of increased generalized weakness and multiple falls. [place] . He was drinking heavily. On arrival his alcohol level is more than 400. Admit ECG shows A-fib RVR with heart rate in 160s, with nonspecific interventricular conduction delay. His other labs shows hemoglobin of 11.5, sodium 136, BUN 30, creatinine 1.16, troponin at 0.35 REVIEW OF SYSTEMS 14 point review of system is negative except what is mentioned above in HPI. PHYSICAL EXAMINATION Examined after the cardioversion Head: Normocephalic. Eyes: Sclerae nonicteric. Neck: Brisk carotid upstroke, no jugular venous distention. Lungs: Clear to auscultation. Heart: Regular rate and rhythm, S1-S2 audible, no murmurs appreciated Abdomen: Soft nontender, positive bowel sounds. Extremities: No edema, intact distal pulses. Neuro: Alert, oritented, no focal deficits. Detailed neuro exam was not perfor med. ASSESSMENT Atrial fibrillation with RVR, symptomatic with hemodynamic compromise. Got further hypotensive with Cardizem drip therefore it was discontinued. Status post cardioversion, attempted 120 J unsuccessful, second attempt 200 J successful. Elevated troponin, type II NSTEMI in setting of A-fib and stable CAD Prior h/o of TIA, with elevated [id number] score cardiomyopathy EF 35-40% CAD, moderate to severe disease in LAD from CTA coronary Prior history of mitral valve repair in 2000 Alcohol intoxication, currently undergoing alcohol withdrawal Prior history of alcohol and drug abuse HIV PLAN Continue amiodarone drip as per the protocol. Status post 300 mg amiodarone bolus Start esmolol drip at 50 mcg. Start IV heparin drip without bolus. Patient was on Eliquis at home. Hold antihypertensive medications at this time due to low blood pressure Obtain medical records from [facility] to assess the nature and workup done for his type A aortic dissection. Obtain echocardiogram to evaluate for wall motion abnormality and understanding if the dissection has involved any coronaries specially in setting of elevated troponin In my practice it is unusual to manage type a aortic dissection in a conservative way. As per the patient and patient's family they have been evaluated by surgeon at [facility] and they have been told that it needs to be managed conservatively. To confirm this I will obtain medical records from [facility]. For now the goal is to stabilize the patient hemodynamically. Colt Ferraro MD, FACC, RPVI Thank you for allowing [facility] to participate in this patient's care. Feel free to reach out in case of any followup questions. Past Medical History Past Medical History: Asthma, Heart Failure, Fibromyalgia, GERD/Reflux, Hypertension, Prostate Disorder Additional Past Medical History / Comment(s): Mitral valve disease and a previous mitral valve surgery repair HIV positive, past HTN and recently low blood pressures, BPH, R ankle gout, chronic nausea, bilateral glaucoma, DDD, chronic pain syndrome, chronic low back and bilateral hip pain and occasional cervical pain, DDD, lumbar stenosis/spondylosis, abdominal hernia, previous history of drug overdose. PTSD History of Any Multi-Drug Resistant Organisms: None Reported Past Surgical History: Heart Catheterization, Hernia Repair Additional Past Surgical History / Comment(s): Mitral valve repair at [facility], R inguinal hernia x2, L inguinal hernia, epidural injections to back, hip injections, RFAs, spinal cord stimulator trial-removed, Past Anesthesia/Blood Transfusion Reactions: No Reported Reaction Past Psychological History: Anxiety, Depression, PTSD Smoking Status: Former smoker Past Alcohol Use History: Occasional Past Drug Use History: Marijuana, Prescription Drug Abuse - Past Family History Father History Unknown: Yes Additional Family Medical History / Comment(s): Father was injured at work and of complication during his hospitalization. Mother Additional Family Medical History / Comment(s): Mother is from [place]. Brother(s) Additional Family Medical History / Comment(s): alcohol and HF Medications and Allergies Home Medications Medication Instructions Recorded Confirmed Type Ondansetron [Zofran ODT] 8 mg PO BID PRN 05/18/18 04/07/24 History Bictegrav/Emtricit/Tenofov Ala 1 tab PO DAILY 09/07/21 04/07/24 History [Biktarvy 50-200-25 mg Tablet] Darunavir/Cobicistat [Prezcobix 1 tab PO DAILY 09/07/22 04/07/24 History 800 mg-150 mg Tablet] Ipratropium-Albuterol Nebulize 3 ml INHALATION RT-BID PRN 10/23/23 04/07/24 History [Duoneb 0.5 mg-3 mg/3 ml Soln] Spironolactone [Aldactone] 25 mg PO DAILY #30 tab 10/24/23 04/07/24 Rx Albuterol Sulfate [Albuterol 1 - 2 puff INHALATION RT-QID PRN 12/27/23 04/07/24 History Sulfate Hfa] Empagliflozin [Jardiance] 10 mg PO DAILY 12/27/23 04/07/24 History Sacubitril/Valsartan [Entresto 24 1 tab PO BID 12/27/23 04/07/24 History mg-26 mg Tablet] Tamsulosin HCl [Flomax] 0.4 mg PO HS 12/27/23 04/07/24 History Fenofibrate Nanocrystallized 48 mg PO DAILY 03/17/24 04/07/24 History [Fenofibrate] Levothyroxine Sodium 200 mcg PO DAILY 03/17/24 04/07/24 History Pantoprazole [Protonix] 40 mg PO DAILY 03/17/24 04/07/24 History Rosuvastatin Calcium 40 mg PO DAILY 03/17/24 04/07/24 History hydrOXYzine HCL 10 mg PO Q6H PRN 03/17/24 04/07/24 History oxyCODONE-APAP 10-325MG [Percocet 1 tab PO Q6HR PRN 3 Days #12 tab 03/20/24 04/07/24 Rx 10-325 mg] Apixaban [Eliquis] 2.5 mg PO BID 04/03/24 04/07/24 History Bimatoprost [Lumigan 0.01% Ophth 1 drop BOTH EYES HS 04/03/24 04/07/24 History Soln] Bumetanide [BUMEX] 1 mg PO DAILY PRN 04/03/24 04/07/24 History Colchicine 0.6 mg PO DIRECTED PRN 04/03/24 04/07/24 History Gabapentin 600 mg PO TID 04/03/24 04/07/24 History Losartan [Cozaar] 25 mg PO DAILY 04/03/24 04/07/24 History Metoprolol Succinate (ER) [Toprol 75 mg PO DAILY 04/03/24 04/07/24 History Xl] allopurinoL 100 mg PO DAILY 04/03/24 04/07/24 History Allergies Allergy/AdvReac Type Severity Reaction Status Date / Time abacavir [From Ziagen] Allergy Anaphylaxis Verified 04/07/24 16:59 efavirenz [From Sustiva] Allergy Anaphylaxis Verified 04/07/24 16:59 levofloxacin Allergy Itching Verified 04/07/24 16:59 hydrocodone AdvReac Rapid Verified 04/07/24 16:59 [From Hysingla ER] Heart Rate morphine AdvReac Itching Verified 04/07/24 16:59 sulfamethoxazole AdvReac HIGH Verified 04/07/24 16:59 [From Bactrim] CREATININE LEVEL trimethoprim [From Bactrim] AdvReac HIGH Verified 04/07/24 16:59 CREATININE Physical Exam Vitals: Vital Signs Temp Pulse Resp BP Pulse Ox 04/08/24 07:00 149 H 12 99/78 99 04/08/24 06:45 141 H 26 H 81/63 98 04/08/24 06:30 142 H 29 H 85/55 98 04/08/24 06:15 138 H 24 104/57 04/08/24 06:00 151 H 28 H 80/65 04/08/24 05:53 144 H 04/08/24 05:30 165 H 24 105/89 04/08/24 05:00 89/77 04/08/24 04:50 152 H 20 89/77 04/08/24 04:37 99.5 F 04/08/24 04:30 158 H 24 90/60 04/08/24 04:00 161 H 26 H 97/54 04/08/24 03:50 168 H 39 H 97/54 04/08/24 03:30 165 H 24 102/90 04/08/24 03:00 160 H 24 81/52 04/08/24 02:43 163 H 24 76/60 04/08/24 02:00 160 H 18 102/68 04/08/24 00:25 176 H 18 93/69 100 04/07/24 22:35 154 H 18 104/59 100 04/07/24 20:54 154 H 18 94/71 98 04/07/24 19:35 163 H 18 115/54 100 04/07/24 18:30 152 H 20 94/65 99 04/07/24 16:54 98.9 F 170 H 20 105/85 96 Intake and Output 04/07/24 04/08/24 04/08/24 22:59 06:59 14:59 Intake Total 13.458 75 Output Total 300 Balance 13.458 -225 Intake: IV 75 Sodium Chloride 0.9% 1, 75 000 ml @ 75 mls/hr IV . [id number] [facility] Rx#:[id number] Intake, IV Titration 13.458 Amount Diltiazem 125 mg In 13.458 Sodium Chloride 0.9% 100 ml @ 5 MG/HR 5 mls/hr IV .Q24H [facility] Rx#:[id number] Output: Urine 300 Other: Voiding Method Urinal # Voids 1 Weight 71.214 kg Results 04/08/24 06:00 04/08/24 06:00 Cardiac Enzymes 04/07/24 04/08/24 04/08/24 Range/Units 17:21 06:00 06:00 AST 47 49 (17-59) U/L Troponin I 0.352 H* (0.000-0.034) ng/mL Coagulation 04/07/24 04/07/24 Range/Units 17:21 22:09 PT 10.6 (10.0-12.5) sec APTT 22.0 19.0 L (22.0-30.0) sec CBC 04/08/24 04/08/24 Range/Units 01:09 06:00 WBC 6.9 9.3 (3.8-10.6) k/uL RBC 3.60 L 3.56 L (4.30-5.90) m/uL Hgb 11.8 L 11.5 L (13.0-17.5) gm/dL Hct 35.1 L 34.7 L (39.0-53.0) % Plt Count 218 189 (150-450) k/uL Comprehensive Metabolic Panel 04/07/24 04/08/24 Range/Units 17:21 06:00 Sodium 137 136 L (137-145) mmol/L Potassium 4.4 4.1 (3.5-5.1) mmol/L Chloride 101 104 (98-107) mmol/L Carbon Dioxide 15 L 23 (22-30) mmol/L BUN 31 H 30 H (9-20) mg/dL Creatinine 0.99 1.16 (0.66-1.25) mg/dL Glucose 179 H 189 H (74-99) mg/dL Calcium 9.2 9.0 (8.4-10.2) mg/dL AST 47 49 (17-59) U/L ALT 19 20 (4-49) U/L Alkaline Phosphatase 98 100 (38-126) U/L Total Protein 7.7 7.1 (6.3-8.2) g/dL Albumin 4.7 4.2 (3.5-5.0) g/dL Current Medications Generic Name Dose Route Start Last Admin Trade Name Freq PRN Reason Stop Dose Admin Acetaminophen 650 mg 04/07/24 20:44 Acetaminophen Tab 325 Mg Tab PO Q6HR PRN Mild Pain or Fever > 100.5 Albuterol Sulfate 2.5 mg 04/07/24 21:17 Albuterol Nebulized 2.5 Mg/3 Ml INHALATION RT-QID PRN Shortness Of Breath Allopurinol 100 mg 04/08/24 09:00 Allopurinol 100 Mg Tab PO DAILY [facility] Atorvastatin Calcium 80 mg 04/08/24 09:00 Atorvastatin 80 Mg Tab PO DAILY [facility] Dextrose/Water 25 ml 04/08/24 04:27 Dextrose 50% Syringe 50 Ml IVP PER PROTOCOL PRN Hypoglycemia Protocol Dextrose/Water 50 ml 04/08/24 04:27 Dextrose 50% Syringe 50 Ml IVP PER PROTOCOL PRN Hypoglycemia Protocol Gabapentin 600 mg 04/07/24 22:00 04/08/24 09:47 Gabapentin 300 Mg Cap PO Not Given TID [facility] Heparin Sodium (Porcine) 0 unit 04/08/24 09:32 Heparin Sodium 1,000 Un/Ml (10ml Vl) IV PER PROTOCOL PRN Low PTT Protocol Hydromorphone HCl 0.5 mg 04/07/24 20:44 Hydromorphone 0.5 Mg/0.5 Ml Syringe IVP Q3HR PRN Moderate Pain (Scale 4 to 6) Sodium Chloride 1,000 mls @ 75 mls/hr 04/07/24 20:45 04/07/24 20:47 Saline 0.9% IV Not Given .[id number] [facility] Amiodarone HCl 360 mg/ 200 mls @ 33.333 mls/hr 04/08/24 04:45 04/08/24 04:45 Dextrose/Water IV 04/08/24 10:44 1 mg/min .Q6H ONE 33.333 mls/hr Administration Protocol 1 MG/MIN Esmolol HCl/Sodium Chloride 2. 250 mls @ 21.364 mls/hr 04/08/24 09:00 09:37 5 gm/ IV Solution IV 50 mcg/kg/min .[id number] [facility] 21.364 mls/hr Administration Protocol 50 MCG/KG/MIN Heparin Sodium/Sodium Chloride 250 mls @ 8.546 mls/hr 04/08/24 09:45 25,000 unit/ Sodium Chloride IV .Q24H [facility] Protocol 12 UNITS/KG/HR Amiodarone HCl 450 mg/ 250 mls @ 16.667 mls/hr 04/08/24 10:45 Dextrose/Water IV 04/09/24 04:44 .Q15H [facility] Protocol 0.5 MG/MIN Insulin Aspart 0 unit 04/08/24 07:30 04/08/24 07:19 Insulin Aspart (Novolog) 100 Unit/Ml Vial SQ 2 unit ACHS [facility] Administration Protocol Latanoprost 1 drops 04/08/24 21:00 Latanoprost 0.005% Ophth Drops 2.5 Ml Btl BOTH EYES HS [facility] Levothyroxine Sodium 200 mcg 04/08/24 06:30 04/08/24 07:19 Levothyroxine 100 Mcg Tab PO 200 mcg DAILY@0630 [facility] Administration Lorazepam 2 mg 04/07/24 20:46 04/08/24 05:08 Lorazepam 1 Mg Tab PO 2 mg Q3HR PRN Administration Ciwa 8 To 9 Lorazepam 2 mg 04/07/24 20:46 Lorazepam 1 Mg Tab PO Q2HR PRN Ciwa 10 or greater Lorazepam 1 mg 04/07/24 20:46 04/08/24 03:58 Lorazepam 1 Mg Tab PO 1 mg Q4HR PRN Administration Ciwa 6 To 7 Lorazepam 0.5 mg 04/07/24 20:46 Lorazepam 0.5 Mg Tab PO Q4HR PRN [place] 4 To 5 Lorazepam 2 mg 04/07/24 20:46 Lorazepam 2 Mg/Ml Inj IV Q6HR PRN Seizures Miscellaneous Information 1 each 04/08/24 06:50 Magnesium Replacement Protocol 1 Each Misc MISCELLANE DAILY PRN Per Protocol Protocol Morphine Sulfate 4 mg 04/07/24 22:17 04/07/24 22:30 Morphine Sulfate 4 Mg/Ml Syringe IVP 4 mg Q4HR PRN Administration Pain Multivitamins 1 each 04/08/24 09:00 Multivitamins, Thera 1 Each Tab PO DAILY [facility] Naloxone HCl 0.2 mg 04/07/24 20:44 Naloxone 0.4 Mg/Ml 1 Ml Vial IV Q2M PRN Opioid Reversal Non-Formulary Medication 1 tab 04/08/24 09:00 04/08/24 09:48 Bictegrav/Emtricit/Tenofov Ala [Biktarvy 50-200-25 Mg Tablet] PO Not Given DAILY [facility] Non-Formulary Medication 1 tab 04/08/24 09:00 04/08/24 09:49 Darunavir/Cobicistat [Prezcobix 800 Mg-150 Mg Tablet] PO Not Given DAILY [facility] Ondansetron HCl 4 mg 04/07/24 22:15 04/07/24 22:38 Ondansetron 4 Mg/2 Ml Vial IVP 4 mg Q6HR PRN Administration Nausea And Vomiting Pantoprazole Sodium 40 mg 04/08/24 09:00 Pantoprazole 40 Mg/10 Ml Vial IV DAILY [facility] Petrolatum 1 applic 04/08/24 09:00 04/08/24 09:47 Zinc Oxide Paste (Z-Guard) 1 Applic TOPICAL Not Given DAILY [facility] Protocol Tamsulosin HCl 0.4 mg 04/08/24 21:00 Tamsulosin 0.4 Mg Cap.Er.24h PO HS [facility] Thiamine HCl 100 mg 04/08/24 09:00 Thiamine 100 Mg Tab PO DAILY [facility] Intake and Output 04/07/24 04/08/24 04/08/24 22:59 06:59 14:59 Intake Total 13.458 75 Output Total 300 Balance 13.458 -225 Intake: IV 75 Sodium Chloride 0.9% 1, 75 000 ml @ 75 mls/hr IV . [id number] [facility] Rx#:[id number] Intake, IV Titration 13.458 Amount Diltiazem 125 mg In 13.458 Sodium Chloride 0.9% 100 ml @ 5 MG/HR 5 mls/hr IV .Q24H [facility] Rx#:[id number] Output: Urine 300 Other: Voiding Method Urinal # Voids 1 Weight 71.214 kg 04/08/24 06:00 04/08/24 06:00
[2024-04-08 10:01] LABS: Basophils % (A) 0 %; Eosinophils % (A) 0 %; HGB 11.4 gm/dL (13.0-17.5); Lymphocytes # (A) 1.4 k/uL (1.0-4.8); Lymphocytes % (A) 23 %; MCH 32.6 pg (25.0-35.0); MCHC 33.6 g/dL (31.0-37.0); Mean Platelet Volume 8.8; Monocytes # (A) 0.3 k/uL (0-1.0); Monocytes % (A) 5 %; Neutrophils # (A) 4.3 k/uL (1.3-7.7); Neutrophils % (A) 69 %; Platelet Count 151 k/uL (150-450); RDW 15.2 % (11.5-15.5); WBC 6.2 k/uL (3.8-10.6)
[2024-04-08 10:04] LABS: Partial Thromboplastin Time 24.5 sec (22.0-30.0); Prothrombin Time 10.7 sec (10.0-12.5)
[2024-04-08] MEDS: THIAMINE 100 MG TAB PO SCH (10:07)
[2024-04-08] MEDS: ATORVASTATIN 80 MG TAB PO SCH (10:07)
[2024-04-08] MEDS: MULTIVITAMINS, THERA 1 EACH TAB PO SCH (10:07)
[2024-04-08] MEDS: allopurinoL 100 MG TAB PO SCH (10:07)
[2024-04-08] MEDS: PANTOPRAZOLE 40 MG/10 ML VIAL IV SCH (10:07)
[2024-04-08] MEDS: AMIODARONE 450 MG in DEXTROSE 5% IN WATER 250 ML IV SCH (10:08)
[2024-04-08] MEDS: HEPARIN SOD,PORK IN 0.45% NACL 25,000 UNIT in 0.45% NACL 1 250ML.BAG IV SCH (10:38)
--- NOTE | 2024-04-08 10:40 | P.GSCN ---
History of Present Illness Consult date: 04/08/24 Reason for Consult: Type A aortic dissection Requesting physician: Flaca Ocampo History of present illness: This is a 63-year-old gentleman who follows outpatient with Dr. Malone for primary care, Dr. Morales for cardiology, and a cardiothoracic surgeon at [facility] for mitral valve repair and reportedly aortic dissection. He has a previous medical history of multiple comorbidities which include hypertension, hyperlipidemia, HIV, alcohol abuse, paroxysmal atrial fibrillation on Eliquis for anticoagulation, mitral valve repair in 2000, and known type a aortic dissection since at least December 2023, recent left hip surgery, previous tobacco dependence, and marijuana use. He presented to [facility] emergency room reportedly [place] and [place] heavily every single day. He did not take any of his prescription medications with him. He had multiple falls over the weekend, claims he did not lose consciousness but did hit his head. Upon getting back to [facility] he presented to our emergency room for evaluation and treatment. EKG revealed atrial fibrillation with rapid ventricular response. Head CT revealed no acute process. The patient did have an abdominal CT followed by a chest CTA which noted a type A dissection in the ascending aorta extending to the descending aorta terminating in the left common iliac and right common femoral artery. Of note his alcohol level was greater than 400. According to the ER documentation they did try to contact the cardiothoracic surgeon at [facility] and were told they would receive a phone call back. The patient was admitted to the intensive care unit with consultation placed to cardiology and the firmware test engineer services as well as vascular surgery. He was started on Cardizem for the A-fib but his blood pressure did not tolerate it and this was discontinued, amiodarone was initiated. Regarding the type a dissection vascular surgery consulted Dr. Smalls from cardiothoracic surgery for treatment recommendations. Review of Systems Review of systems was completed and was negative except as noted - Musculoskeletal Reports frequent falls bilateral: hip pain, knee pain Past Medical History Past Medical History: Atrial Fibrillation, Asthma, Heart Failure, Fibromyalgia, GERD/Reflux, Hypertension, Prostate Disorder Additional Past Medical History / Comment(s): Mitral valve disease w/ MV repair at [facility] 2000, HIV positive, past HTN and recently low blood pressures, BPH, R ankle gout, chronic nausea, bilateral glaucoma, chronic pain syndrome, chronic low back and bilateral hip pain and occasional cervical pain, DDD, lumbar stenosis/spondylosis, abdominal hernia, previous history of drug overdose. PTSD History of Any Multi-Drug Resistant Organisms: None Reported Past Surgical History: Heart Catheterization, Hernia Repair Additional Past Surgical History / Comment(s): Mitral valve repair at [facility] (2000), Type A aortic disection repordedly treated conservatively by [facility], R inguinal hernia x2, L inguinal hernia, epidural injections to back, hip injections, RFAs, spinal cord stimulator trial-removed, Past Anesthesia/Blood Transfusion Reactions: No Reported Reaction Past Psychological History: Anxiety, Depression, PTSD Smoking Status: Former smoker Past Alcohol Use History: Abuse Past Drug Use History: Marijuana, Prescription Drug Abuse - Past Family History Father History Unknown: Yes Additional Family Medical History / Comment(s): Father was injured at work and d ied of complication during his hospitalization. Mother Additional Family Medical History / Comment(s): Mother is from alcoholism. Brother(s) Additional Family Medical History / Comment(s): alcohol and HF Medications and Allergies Home Medications Medication Instructions Recorded Confirmed Type Ondansetron [Zofran ODT] 8 mg PO BID PRN 05/18/18 04/07/24 History Bictegrav/Emtricit/Tenofov Ala 1 tab PO DAILY 09/07/21 04/07/24 History [Biktarvy 50-200-25 mg Tablet] Darunavir/Cobicistat [Prezcobix 1 tab PO DAILY 09/07/22 04/07/24 History 800 mg-150 mg Tablet] Ipratropium-Albuterol Nebulize 3 ml INHALATION RT-BID PRN 10/23/23 04/07/24 History [Duoneb 0.5 mg-3 mg/3 ml Soln] Spironolactone [Aldactone] 25 mg PO DAILY #30 tab 10/24/23 04/07/24 Rx Albuterol Sulfate [Albuterol 1 - 2 puff INHALATION RT-QID PRN 12/27/23 04/07/24 History Sulfate Hfa] Empagliflozin [Jardiance] 10 mg PO DAILY 12/27/23 04/07/24 History Sacubitril/Valsartan [Entresto 24 1 tab PO BID 12/27/23 04/07/24 History mg-26 mg Tablet] Tamsulosin HCl [Flomax] 0.4 mg PO HS 12/27/23 04/07/24 History Fenofibrate Nanocrystallized 48 mg PO DAILY 03/17/24 04/07/24 History [Fenofibrate] Levothyroxine Sodium 200 mcg PO DAILY 03/17/24 04/07/24 History Pantoprazole [Protonix] 40 mg PO DAILY 03/17/24 04/07/24 History Rosuvastatin Calcium 40 mg PO DAILY 03/17/24 04/07/24 History hydrOXYzine HCL 10 mg PO Q6H PRN 03/17/24 04/07/24 History oxyCODONE-APAP 10-325MG [Percocet 1 tab PO Q6HR PRN 3 Days #12 tab 03/20/24 04/07/24 Rx 10-325 mg] Apixaban [Eliquis] 2.5 mg PO BID 04/03/24 04/07/24 History Bimatoprost [Lumigan 0.01% Ophth 1 drop BOTH EYES HS 04/03/24 04/07/24 History Soln] Bumetanide [BUMEX] 1 mg PO DAILY PRN 04/03/24 04/07/24 History Colchicine 0.6 mg PO DIRECTED PRN 04/03/24 04/07/24 History Gabapentin 600 mg PO TID 04/03/24 04/07/24 History Losartan [Cozaar] 25 mg PO DAILY 04/03/24 04/07/24 History Metoprolol Succinate (ER) [Toprol 75 mg PO DAILY 04/03/24 04/07/24 History Xl] allopurinoL 100 mg PO DAILY 04/03/24 04/07/24 History Allergies Allergy/AdvReac Type Severity Reaction Status Date / Time abacavir [From Ziagen] Allergy Anaphylaxis Verified 04/07/24 16:59 efavirenz [From Sustiva] Allergy Anaphylaxis Verified 04/07/24 16:59 levofloxacin Allergy Itching Verified 04/07/24 16:59 hydrocodone AdvReac Rapid Verified 04/07/24 16:59 [From Hysingla ER] Heart Rate morphine AdvReac Itching Verified 04/07/24 16:59 sulfamethoxazole AdvReac HIGH Verified 04/07/24 16:59 [From Bactrim] CREATININE LEVEL trimethoprim [From Bactrim] AdvReac HIGH Verified 04/07/24 16:59 CREATININE Surgical - Exam Vital Signs Temp Pulse Resp BP Pulse Ox 98.9 F 170 H 20 105/85 96 04/07/24 16:54 04/07/24 16:54 04/07/24 16:54 04/07/24 16:54 04/07/24 16:54 CONSTITUTIONAL: Awake and alert, appears comfortable, cooperative, well- developed, well-nourished EYES: Pupils equal, round, reactive to light, normal ocular movement ENT: Moist mucous membranes without oral lesions present NECK: No masses, no bruits, trachea midline RESPIRATORY: Lungs sounds diminished in the bases bilaterally. Respirations even, nonlabored. Currently on 2 L nasal cannula with oxygen saturation 98%. Strong cough CARDIOVASCULAR: S1, S2 present. Irregular rate and rhythm, atrial fibrillation on telemetry. Palpable peripheral pulses bilaterally. No edema present. No calf pain or tenderness noted GASTROINTESTINAL: Abdomen soft, nontender, nondistended without masses or organomegaly noted. There is no rebound or guarding present. Active bowel sounds present 4 quadrants. GENITOURINARY: Deferred INTEGUMENTARY: Skin is warm and dry NEUROLOGIC: Cranial nerves II through XII intact MUSKULOSKELETAL: Able to move all extremities, strength equal bilaterally, normal posture PSYCHIATRIC: Alert and oriented to person place and time Results - Labs 04/08/24 09:43 04/08/24 06:00 Abnormal Lab Results - Last 24 Hours (Table) 04/07/24 04/07/24 04/08/24 Range/Units 17:21 22:09 01:09 RBC 3.60 L (4.30-5.90) m/uL Hgb 11.8 L (13.0-17.5) gm/dL Hct 35.1 L (39.0-53.0) % Neutrophils # (1.3-7.7) k/uL Lymphocytes # (1.0-4.8) k/uL APTT 19.0 L (22.0-30.0) sec Sodium (137-145) mmol/L Carbon Dioxide 15 L (22-30) mmol/L BUN 31 H (9-20) mg/dL Glucose 179 H (74-99) mg/dL POC Glucose (mg/dL) (70-110) mg/dL Troponin I (0.000-0.034) ng/mL Lipase 310 H (23-300) U/L TSH 0.306 L (0.465-4.680) mIU/L Free T3 pg/mL 1.60 L (2.30-4.20) pg/mL Serum Alcohol 416 H* mg/dL 04/08/24 04/08/24 04/08/24 Range/Units 06:00 06:00 06:00 RBC 3.56 L (4.30-5.90) m/uL Hgb 11.5 L (13.0-17.5) gm/dL Hct 34.7 L (39.0-53.0) % Neutrophils # 7.8 H (1.3-7.7) k/uL Lymphocytes # 0.9 L (1.0-4.8) k/uL APTT (22.0-30.0) sec Sodium 136 L (137-145) mmol/L Carbon Dioxide (22-30) mmol/L BUN 30 H (9-20) mg/dL Glucose 189 H (74-99) mg/dL POC Glucose (mg/dL) (70-110) mg/dL Troponin I 0.352 H* (0.000-0.034) ng/mL Lipase (23-300) U/L TSH (0.465-4.680) mIU/L Free T3 pg/mL (2.30-4.20) pg/mL Serum Alcohol mg/dL 04/08/24 04/08/24 Range/Units 06:26 09:43 RBC 3.50 L (4.30-5.90) m/uL Hgb 11.4 L (13.0-17.5) gm/dL Hct 34.0 L (39.0-53.0) % Neutrophils # (1.3-7.7) k/uL Lymphocytes # (1.0-4.8) k/uL APTT (22.0-30.0) sec Sodium (137-145) mmol/L Carbon Dioxide (22-30) mmol/L BUN (9-20) mg/dL Glucose (74-99) mg/dL POC Glucose (mg/dL) 216 H (70-110) mg/dL Troponin I (0.000-0.034) ng/mL Lipase (23-300) U/L TSH (0.465-4.680) mIU/L Free T3 pg/mL (2.30-4.20) pg/mL Serum Alcohol mg/dL Diabetes panel 04/07/24 04/08/24 04/08/24 Range/Units 17:21 06:00 06:00 Sodium 137 136 L (137-145) mmol/L Potassium 4.4 4.1 (3.5-5.1) mmol/L Chloride 101 104 (98-107) mmol/L Carbon Dioxide 15 L 23 (22-30) mmol/L BUN 31 H 30 H (9-20) mg/dL Creatinine 0.99 1.16 (0.66-1.25) mg/dL Glucose 179 H 189 H (74-99) mg/dL Hemoglobin A1c 5.1 (<=6.0) % Calcium 9.2 9.0 (8.4-10.2) mg/dL AST 47 49 (17-59) U/L ALT 19 20 (4-49) U/L Alkaline Phosphatase 98 100 (38-126) U/L Total Protein 7.7 7.1 (6.3-8.2) g/dL Albumin 4.7 4.2 (3.5-5.0) g/dL Thyroid panel 04/07/24 Range/Units 17:21 TSH 0.306 L (0.465-4.680) mIU/L Calcium panel 04/07/24 04/08/24 Range/Units 17:21 06:00 Calcium 9.2 9.0 (8.4-10.2) mg/dL Albumin 4.7 4.2 (3.5-5.0) g/dL Pituitary panel 04/07/24 04/08/24 Range/Units 17:21 06:00 Sodium 137 136 L (137-145) mmol/L Potassium 4.4 4.1 (3.5-5.1) mmol/L Chloride 101 104 (98-107) mmol/L Carbon Dioxide 15 L 23 (22-30) mmol/L BUN 31 H 30 H (9-20) mg/dL Creatinine 0.99 1.16 (0.66-1.25) mg/dL Glucose 179 H 189 H (74-99) mg/dL Calcium 9.2 9.0 (8.4-10.2) mg/dL TSH 0.306 L (0.465-4.680) mIU/L Adrenal panel 04/07/24 04/08/24 Range/Units 17:21 06:00 Sodium 137 136 L (137-145) mmol/L Potassium 4.4 4.1 (3.5-5.1) mmol/L Chloride 101 104 (98-107) mmol/L Carbon Dioxide 15 L 23 (22-30) mmol/L BUN 31 H 30 H (9-20) mg/dL Creatinine 0.99 1.16 (0.66-1.25) mg/dL Glucose 179 H 189 H (74-99) mg/dL Calcium 9.2 9.0 (8.4-10.2) mg/dL Total Bilirubin 0.8 1.0 (0.2-1.3) mg/dL AST 47 49 (17-59) U/L ALT 19 20 (4-49) U/L Alkaline Phosphatase 98 100 (38-126) U/L Total Protein 7.7 7.1 (6.3-8.2) g/dL Albumin 4.7 4.2 (3.5-5.0) g/dL - Imaging CT scan - chest: report reviewed, image reviewed EKG: image reviewed Assessment and Plan Assessment: Type A aortic dissection Multiple falls over the weekend Alcohol intoxication, alcohol level greater than 400 on admission A-fib with RVR present on admission History of moderate to severe coronary artery disease in the LAD from CTA Hypertension, currently hypotensive Hyperlipidemia HIV Alcohol abuse Paroxysmal atrial fibrillation on Eliquis for anticoagulation, last reported dose 04/03 Mitral valve repair in 2000 at [facility] Known type a aortic dissection since at least December 2023 Recent left hip surgery 03/2024 due to avascular necrosis Previous tobacco dependence Marijuana use Chronic Type A dissection, managed at [facility]. Awaiting their records. Plan: The patient was seen and examined laying in bed in the intensive care unit in no acute distress. Chart/diagnostics reviewed. The case was discussed in great detail with Dr. Smalls, CT scan was sent to Dr. Smalls for review. Last office note obtained from Dr. Morales dated February 27, 2024 states the patient does have an ascending aortic dissection which is being managed conservatively through vascular surgery at [facility]. Record request sent to [facility]. From our standpoint we would not offer surgery here and would recommend the patient be transferred to [facility] or [facility] for management of his aortic dissection, but would leave decision to cardiology and internal medicine. If re cords from [facility] demonstrate that patient is not a surgical candidate and is being managed conservatively those records should be scanned into the chart accordingly. Recommend beta-trish for heart rate control. Apparently patient was cardioverted x 2 and cardioversion was successful with the second jolt of 200 J. Continue management per internal medicine, cardiology, firmware test engineer services. Thank you for this consult. Please call us with any further questions. I have personally seen and examined the patient, performed the documentation and the assessment and plan as written. Number of minutes spent on the visit: 30. LICHA ClarkeC
--- NOTE | 2024-04-08 12:07 | P.GSCN ---
History of Present Illness Consult date: 04/08/24 Reason for Consult: Chronic dissection Requesting physician: Ciera Sanchez History of present illness: This is a 63-year-old gentleman with a past medical history including hypertension, hyperlipidemia, HIV, previous IV drug use, alcohol abuse, atrial fibrillation on Eliquis, mitral valve repair, former tobacco dependence, marijuana use, and reportedly chronic aortic dissection diagnosed in November of this year. He follows outpatient with Dr. Morales for cardiology and a cardiothoracic surgeon at [facility] for mitral valve repair and reportedly aortic dissection. He had a recent hip surgery about 2 weeks ago. He presented to [facility] emergency room reportedly after [place] and drinking heavily every single day, not taking any of his prescription medications with him and having multiple falls over the weekend. He states that he thinks he hit his head but did not lose consciousness. Currently complaining of bilateral knee pain. EKG revealed atrial fibrillation with rapid ventricular response. Head CT revealed no acute process. The patient did have an abdominal CT followed by a chest CTA which noted a type A dissection in the ascending aorta extending to the descending aorta terminating in the left common iliac and right common femoral artery. Of note his alcohol level was greater than 400. According to the ER documentation they did try to contact the cardiothoracic surgeon at [facility] and were told they would receive a phone call back. The patient was admitted to the intensive care unit with consultation placed to cardiology and the envelope folding machine operator services. Vascular surgery was consulted for chronic dissection. He was started on C ardizem for the A-fib but his blood pressure did not tolerate it and this was discontinued, amiodarone was initiated. They attempted to cardiovert patient however that was successful. Patient is currently denying any abdominal pain, or pain radiating into his back. Denies chest pain or shortness of breath. Complaints are of bilateral knee pain. Denies any pain in his lower extremities with walking. Review of Systems A 14 point review systems was completed all pertinent positives and negatives as stated in the HPI. Past Medical History Past Medical History: Asthma, Heart Failure, Fibromyalgia, GERD/Reflux, Hypertension, Prostate Disorder Additional Past Medical History / Comment(s): Mitral valve disease and a previous mitral valve surgery repair HIV positive, past HTN and recently low blood pressures, BPH, R ankle gout, chronic nausea, bilateral glaucoma, DDD, chronic pain syndrome, chronic low back and bilateral hip pain and occasional cervical pain, DDD, lumbar stenosis/spondylosis, abdominal hernia, previous history of drug overdose. PTSD History of Any Multi-Drug Resistant Organisms: None Reported Past Surgical History: Heart Catheterization, Hernia Repair Additional Past Surgical History / Comment(s): Mitral valve repair at [facility], R inguinal hernia x2, L inguinal hernia, epidural injections to back, hip injections, RFAs, spinal cord stimulator trial-removed, Past Anesthesia/Blood Transfusion Reactions: No Reported Reaction Past Psychological History: Anxiety, Depression, PTSD Smoking Status: Former smoker Past Alcohol Use History: Occasional Past Drug Use History: Marijuana, Prescription Drug Abuse - Past Family History Father History Unknown: Yes Additional Family Medical History / Comment(s): Father was injured at work and of complication during his hospitalization. Mother Additional Family Medical History / Comment(s): Mother is from alcoholism. Brother(s) Additional Family Medical History / Comment(s): alcohol and HF Medications and Allergies Home Medications Medication Instructions Recorded Confirmed Type Ondansetron [Zofran ODT] 8 mg PO BID PRN 05/18/18 04/07/24 History Bictegrav/Emtricit/Tenofov Ala 1 tab PO DAILY 09/07/21 04/07/24 History [Biktarvy 50-200-25 mg Tablet] Darunavir/Cobicistat [Prezcobix 1 tab PO DAILY 09/07/22 04/07/24 History 800 mg-150 mg Tablet] Ipratropium-Albuterol Nebulize 3 ml INHALATION RT-BID PRN 10/23/23 04/07/24 History [Duoneb 0.5 mg-3 mg/3 ml Soln] Spironolactone [Aldactone] 25 mg PO DAILY #30 tab 10/24/23 04/07/24 Rx Albuterol Sulfate [Albuterol 1 - 2 puff INHALATION RT-QID PRN 12/27/23 04/07/24 History Sulfate Hfa] Empagliflozin [Jardiance] 10 mg PO DAILY 12/27/23 04/07/24 History Sacubitril/Valsartan [Entresto 24 1 tab PO BID 12/27/23 04/07/24 History mg-26 mg Tablet] Tamsulosin HCl [Flomax] 0.4 mg PO HS 12/27/23 04/07/24 History Fenofibrate Nanocrystallized 48 mg PO DAILY 03/17/24 04/07/24 History [Fenofibrate] Levothyroxine Sodium 200 mcg PO DAILY 03/17/24 04/07/24 History Pantoprazole [Protonix] 40 mg PO DAILY 03/17/24 04/07/24 History Rosuvastatin Calcium 40 mg PO DAILY 03/17/24 04/07/24 History hydrOXYzine HCL 10 mg PO Q6H PRN 03/17/24 04/07/24 History oxyCODONE-APAP 10-325MG [Percocet 1 tab PO Q6HR PRN 3 Days #12 tab 03/20/24 04/07/24 Rx 10-325 mg] Apixaban [Eliquis] 2.5 mg PO BID 04/03/24 04/07/24 History Bimatoprost [Lumigan 0.01% Ophth 1 drop BOTH EYES HS 04/03/24 04/07/24 History Soln] Bumetanide [BUMEX] 1 mg PO DAILY PRN 04/03/24 04/07/24 History Colchicine 0.6 mg PO DIRECTED PRN 04/03/24 04/07/24 History Gabapentin 600 mg PO TID 04/03/24 04/07/24 History Losartan [Cozaar] 25 mg PO DAILY 04/03/24 04/07/24 History Metoprolol Succinate (ER) [Toprol 75 mg PO DAILY 04/03/24 04/07/24 History Xl] allopurinoL 100 mg PO DAILY 04/03/24 04/07/24 History Allergies Allergy/AdvReac Type Severity Reaction Status Date / Time abacavir [From Ziagen] Allergy Anaphylaxis Verified 04/07/24 16:59 efavirenz [From Sustiva] Allergy Anaphylaxis Verified 04/07/24 16:59 levofloxacin Allergy Itching Verified 04/07/24 16:59 hydrocodone AdvReac Rapid Verified 04/07/24 16:59 [From Hysingla ER] Heart Rate morphine AdvReac Itching Verified 04/07/24 16:59 sulfamethoxazole AdvReac HIGH Verified 04/07/24 16:59 [From Bactrim] CREATININE LEVEL trimethoprim [From Bactrim] AdvReac HIGH Verified 04/07/24 16:59 CREATININE Surgical - Exam Vital Signs Temp Pulse Resp BP Pulse Ox 98.9 F 170 H 20 105/85 96 04/07/24 16:54 04/07/24 16:54 04/07/24 16:54 04/07/24 16:54 04/07/24 16:54 General appearance: The patient is alert, oriented, appears in no acute distress. HET: Head is normocephalic and atraumatic. Neck: Supple. No audible bruit. Heart: Irregularly irregular. Lungs: Equal expansion, normal respiratory effort. Abdomen: Soft, nontender, nondistended. Extremities: Normal skin color and turgor. Palpable bilateral PT and DP pulses. Neurological: No focal deficits. Strength and sensation are grossly intact. Results - Labs 04/08/24 09:43 04/08/24 06:00 Abnormal Lab Results - Last 24 Hours (Table) 04/07/24 04/07/24 04/08/24 Range/Units 17:21 22:09 01:09 RBC 3.60 L (4.30-5.90) m/uL Hgb 11.8 L (13.0-17.5) gm/dL Hct 35.1 L (39.0-53.0) % Neutrophils # (1.3-7.7) k/uL Lymphocytes # (1.0-4.8) k/uL APTT 19.0 L (22.0-30.0) sec Sodium (137-145) mmol/L Carbon Dioxide 15 L (22-30) mmol/L BUN 31 H (9-20) mg/dL Glucose 179 H (74-99) mg/dL POC Glucose (mg/dL) (70-110) mg/dL Troponin I (0.000-0.034) ng/mL Lipase 310 H (23-300) U/L TSH 0.306 L (0.465-4.680) mIU/L Free T3 pg/mL 1.60 L (2.30-4.20) pg/mL Serum Alcohol 416 H* mg/dL 04/08/24 04/08/24 04/08/24 Range/Units 06:00 06:00 06:00 RBC 3.56 L (4.30-5.90) m/uL Hgb 11.5 L (13.0-17.5) gm/dL Hct 34.7 L (39.0-53.0) % Neutrophils # 7.8 H (1.3-7.7) k/uL Lymphocytes # 0.9 L (1.0-4.8) k/uL APTT (22.0-30.0) sec Sodium 136 L (137-145) mmol/L Carbon Dioxide (22-30) mmol/L BUN 30 H (9-20) mg/dL Glucose 189 H (74-99) mg/dL POC Glucose (mg/dL) (70-110) mg/dL Troponin I 0.352 H* (0.000-0.034) ng/mL Lipase (23-300) U/L TSH (0.465-4.680) mIU/L Free T3 pg/mL (2.30-4.20) pg/mL Serum Alcohol mg/dL 04/08/24 Range/Units 06:26 RBC (4.30-5.90) m/uL Hgb (13.0-17.5) gm/dL Hct (39.0-53.0) % Neutrophils # (1.3-7.7) k/uL Lymphocytes # (1.0-4.8) k/uL APTT (22.0-30.0) sec Sodium (137-145) mmol/L Carbon Dioxide (22-30) mmol/L BUN (9-20) mg/dL Glucose (74-99) mg/dL POC Glucose (mg/dL) 216 H (70-110) mg/dL Troponin I (0.000-0.034) ng/mL Lipase (23-300) U/L TSH (0.465-4.680) mIU/L Free T3 pg/mL (2.30-4.20) pg/mL Serum Alcohol mg/dL Diabetes panel 04/07/24 04/08/24 Range/Units 17:21 06:00 Sodium 137 136 L (137-145) mmol/L Potassium 4.4 4.1 (3.5-5.1) mmol/L Chloride 101 104 (98-107) mmol/L Carbon Dioxide 15 L 23 (22-30) mmol/L BUN 31 H 30 H (9-20) mg/dL Creatinine 0.99 1.16 (0.66-1.25) mg/dL Glucose 179 H 189 H (74-99) mg/dL Calcium 9.2 9.0 (8.4-10.2) mg/dL AST 47 49 (17-59) U/L ALT 19 20 (4-49) U/L Alkaline Phosphatase 98 100 (38-126) U/L Total Protein 7.7 7.1 (6.3-8.2) g/dL Albumin 4.7 4.2 (3.5-5.0) g/dL Thyroid panel 04/07/24 Range/Units 17:21 TSH 0.306 L (0.465-4.680) mIU/L Calcium panel 04/07/24 04/08/24 Range/Units 17:21 06:00 Calcium 9.2 9.0 (8.4-10.2) mg/dL Albumin 4.7 4.2 (3.5-5.0) g/dL Pituitary panel 04/07/24 04/08/24 Range/Units 17:21 06:00 Sodium 137 136 L (137-145) mmol/L Potassium 4.4 4.1 (3.5-5.1) mmol/L Chloride 101 104 (98-107) mmol/L Carbon Dioxide 15 L 23 (22-30) mmol/L BUN 31 H 30 H (9-20) mg/dL Creatinine 0.99 1.16 (0.66-1.25) mg/dL Glucose 179 H 189 H (74-99) mg/dL Calcium 9.2 9.0 (8.4-10.2) mg/dL TSH 0.306 L (0.465-4.680) mIU/L Adrenal panel 04/07/24 04/08/24 Range/Units 17:21 06:00 Sodium 137 136 L (137-145) mmol/L Potassium 4.4 4.1 (3.5-5.1) mmol/L Chloride 101 104 (98-107) mmol/L Carbon Dioxide 15 L 23 (22-30) mmol/L BUN 31 H 30 H (9-20) mg/dL Creatinine 0.99 1.16 (0.66-1.25) mg/dL Glucose 179 H 189 H (74-99) mg/dL Calcium 9.2 9.0 (8.4-10.2) mg/dL Total Bilirubin 0.8 1.0 (0.2-1.3) mg/dL AST 47 49 (17-59) U/L ALT 19 20 (4-49) U/L Alkaline Phosphatase 98 100 (38-126) U/L Total Protein 7.7 7.1 (6.3-8.2) g/dL Albumin 4.7 4.2 (3.5-5.0) g/dL Assessment and Plan Assessment: 1. Type a aortic dissection, reportedly chronic 2. Atrial fibrillation with RVR 3. Multiple falls 4. Alcohol intoxication with regular alcohol abuse 5. Coronary artery disease with history of mitral valve repair 6. History of IV drug abuse 7. HIV Plan: 1. Recommend consultation to cardiothoracic surgery team with their recommendations appreciated 2. Agree with cardiothoracic surgery that management of aortic dissection patient should be transferred to [facility] or [facility] 3. Await further recommendations from cardiology and records requested from [facility] 4. No plans on vascular surgical intervention for type a aortic dissection 5. Rest of medical management per primary medical team, cardiology and envelope folding machine operator services Thank you for this consultation, please do not hesitate to call us with any further questions. The impression and plan of care has been dictated as directed. Dr. Ocampo I performed a history and examination of this patient, discussed the same with the dictator. I agree with the dictator's note ,documented as a scribe. Any additional findings or plans will be noted.
[2024-04-08 12:17] LABS: Glucose,Whole Blood 120 mg/dL (70-110)
--- NOTE | 2024-04-08 16:06 | CA ---
Transthoracic Echo Report Name: Ned Toledo Age: 63 Gender: M : 1960 Exam Date: 04/08/2024 13:22 Exam Location: [facility] Ht (in): 67 Wt (lb): 157 Ordering Physician: Francisca Padilla MD Attending/Referring Phys: Ferris Wheel Attendant Danielle Benedict RDCS Procedure CPT: Indications: afib Cardiac Hx: Technical Quality: Fair Contrast 1: Definity Total Dose (mL): 2 Contrast 2: Total Dose (mL): MEASUREMENTS (Male / Female) Normal Values 2D ECHO LVOT Diameter 2.3 cm LA Volume 116.8 cm??? 18 - 58 / 22 - 52 cm??? LA Volume Index 63.4 cm???/m??? 16 - 28 cm???/m??? DOPPLER MV Peak Velocity 153.1 cm/s MV Peak Gradient 9.4 mmHg MV Mean Velocity 111.1 cm/s MV Mean Gradient 5.3 mmHg MV Velocity Time Integral 33.6 cm MV Area PHT 3.8 cm??? Mitral E Point Velocity 121.3 cm/s Mitral A Point Velocity 86.7 cm/s Mitral E to A Ratio 1.4 MV Deceleration Time 201.1 ms FINDINGS Left Ventricle Left ventricular ejection fraction is estimated at 35-40 %. Left ventricular dilatation. No obvious regional wall motion abnormalities. Mildly increased LV diastolic diameter visually. Right Ventricle Right ventricular dilatation with normal function. Unable to estimate the right ventricular systolic pressure. Right Atrium Severe right atrial dilatation. Left Atrium Severely increased left atrial volume. Mildly increased left atrial area. Mitral Valve Mitral valve thickened. No evidence for mitral valve prolapse. No mitral stenosis. Moderate mitral regurgitation. Aortic Valve Trileaflet aortic valve. No aortic stenosis. Severe aortic regurgitation. Tricuspid Valve Structurally normal tricuspid valve. No tricuspid stenosis. No tricuspid regurgitation. Pulmonic Valve Pulmonic valve not well visualized. No pulmonic stenosis. No pulmonic regurgitation. Pericardium No pericardial effusion. Aorta Aortic dissection. CONCLUSIONS LVEF 35% Midly increased LV cavity size. Globally reduced systolic function Severe biatrial dilatation Moderate MR Moderate to severe AR Aortic dissection flap noticed in ascending aorta No pericardial effusion Previewed by: Dr Colt Ferraro (Electronically Signed) Final Date: 08 April 2024 16:05
--- NOTE | 2024-04-08 17:16 | P.PN ---
Subjective Progress Note Date: 04/08/24 Patient is a 63-year-old male with history of EtOH use (no history of delirium tremens or admission for ETOH intoxication. Last drink was 1 PM today), A-fib (on Eliquis), aortic dissection type a (managed by Dr. Beal since December 2023), and mitral valve replacement came in for a fall. He reports that he was on a trip up north with his and had been drinking since Sunday and had multiple falls during that trip. However yesterday, he tried to walk upstairs but fell and hit his head with associated loss of consciousness which caused him to seek care. He also reports weakness of his legs and pain on his knees and hips. He denies nausea and vomiting, hematemesis, hematochezia, chest pain, shortness of breath, jaundice, tremors, changes in sensation, changes in vision, or facial asymmetry. In the emergency room, EKG showed A-fib with RVR with a rate of 167, QTc 387, no ST-T changes. CT head showed no acute intracranial process. Chest x-ray showed no acute cardiopulmonary process. Knee x-ray showed no acute fractures or process. Pelvic x-ray showed no acute fractures or process. Chest CT revealed Esteban type A aortic dissection arising from the proximal aortic arch. Abdomen CT showed aortic dissection extends into the abdominal aorta and terminates in the left common iliac and right common femoral arteries. Sodium 137 bicarb 15 glucose 179 lipase 310 TSH 0.3 Free T41.47 PTT 19 PT 10 INR 1. Urine tox negative. Serum alcohol 416. On admission patient is afebrile at 98.9 Fahrenheit tachycardic at 170 with a respiratory rate of 20 blood pressure normotensive at 105/85 oxygen saturation 96% at room air Progress note 04/08/2024 patient seen and examined at bedside. Overnight patient consistently remained in A-fib with RVR. Following attempted and failed cardioversion, another attempt was made at cardioversion and was successful. Patient remains in the ICU and we are awaiting records from the [facility] for his ongoing treatment of the aortic dissection. Review of systems: Pertinent positives and negatives as discussed in HPI, a complete review of systems was performed and all other systems are negative. Physical examination: Vital signs reviewed General: non toxic, no distress, appears older stated age, normal weight Derm: no unusual rashes/lesions, warm Head: atraumatic, normocephalic, symmetric Eyes: EOMI, no lid lag, anicteric sclera, pupils equal round reactive to light ENT: Nose and ears atraumatic Neck: No cervical lymphadenopathy, trachea midline, supple Mouth: no lip lesion, mucus membranes moist Cardiovascular: S1S2 irregularly irregular, no murmur Lungs: CTA bilateral, no rhonchi, no rales, no accessory muscle use Abdominal: soft, generalized abdominal tenderness on light palpation, no guarding Ext: muscle strength 4 out of 5 in upper extremities 5/5 in lower extremities grossly, lower extremity hip ROM limited by pain, no gross muscle atrophy, no contractures, positive dorsalis pedis pulse bilateral, no edema Neuro: CN II-XI grossly intact, no gross focal neuro deficits Psych: Alert, oriented, appropriate affect and mood Labs reviewed todayWBC 6.2 hemoglobin 11.4, platelets 151, sodium 136, potassium 4.1, bicarb 23, BUN 30, creatinine 1.16, glucose 189, TSH 0.306, free T4 1.47, free T31.60 Imaging reviewed todayechocardiogram 35% ejection fraction, severe by atrial dilation, moderate to severe aortic regurgitation Assessment/Plan: #. Type A aortic dissection, appearing stable Patient previously treated at [facility] for aortic dissection - Echocardiogram 35% ejection fraction, severe by atrial dilation, moderate to severe aortic regurgitation Awaiting records from [facility] Vascular surgery note reviewed Pending records, consider transferring patient to [facility] #. A-fib with RVR -Discontinued Cardizem 10 mg/h infusion Continuing IV amiodarone Continue IV heparin Continue IV esmolol drip Hold antihypertensives S/P successful cardioversion - Cardiology following #. EtOH intoxication, impending withdrawal Serum alcohol 416, lipase 310 -Continue with Ativan per CIWA protocol -Continue with IVF NS 0.9% at 75 cc/h (judicious use of IVFs in setting of systolic CHF) -Continue with thiamine 100 mg p.o. OD -Continue with Zofran 4 mg IVP every 6 as needed for nausea and vomiting -Encourage oral hydration and feeding -Fall precautions -Cardiac monitoring Monitor CMP #Subclinical hypothyroidism TSH 0.306, free T4 1.47, free T31.60 Begin levothyroxine 200 mcg #HIV Order CD4 count #. Mechanical fall w/ loss of consciousness -CT head and chest, knee, and pelvic x-rays were unremarkable. Patient experienced loss of consciousness and complains of knee hip and head pain. -Pain control with morphine 4 mg ibuprofen SQ for as needed -PT consult for weakness #. Hyperglycemia No Hx of DM. -ISS sliding scale <70kg -POC glucose checks ACHS -A1c 5.1% #. Normocytic anemia due to ETOH intake -Monitor with CBC Chronic conditions: HIV, asthma, aortic dissection, PTSD, GERD, hypertension, anxiety, depression, CHF with reduced ejection fraction (35% echo done August 2022) DVT prophylaxis: SCDs GI prophylaxis: Protonix 40 mg IV OD The patient is admitted with an anticipated greater than 2 midnight stay for evaluation of A-fib and EtOH intoxication CODE STATUS: Full Discussed with: Patient Anticipated discharge place: Home I saw and evaluated the patient during the granados and critical portions of this encounter, and discussed the case in detail with the resident author of this note, I agree with the Assessment and Plan, and my changes, if any, are highlighted in blue. Objective - Vital Signs Vital signs: Vital Signs Temp 97.9 F 04/08/24 16:00 Pulse 90 04/08/24 16:15 Resp 27 H 04/08/24 16:15 BP 122/67 04/08/24 16:15 Pulse Ox 100 04/08/24 16:15 FiO2 Intake & Output 04/07/24 04/08/24 04/08/24 18:59 06:59 18:59 Intake Total 13.458 565 Output Total 825 Balance 13.458 -260 Weight 71.214 kg 71.214 kg Intake: IV 365 Sodium Chloride 0.9% 1, 365 000 ml @ 20 mls/hr IV . Q24H ALEX Rx#:[id number] Intake, IV Titration 13.458 Amount Diltiazem 125 mg In 13.458 Sodium Chloride 0.9% 100 ml @ 5 MG/HR 5 mls/hr IV .Q24H ALEX Rx#:[id number] Oral 200 Output: Urine 825 Other: Voiding Method Urinal # Voids 1 - Labs CBC & Chem 7: 04/08/24 09:43 04/08/24 06:00 Labs: Abnormal Lab Results - Last 24 Hours (Table) 04/07/24 04/07/24 04/08/24 Range/Units 17:21 22:09 01:09 RBC 3.60 L (4.30-5.90) m/uL Hgb 11.8 L (13.0-17.5) gm/dL Hct 35.1 L (39.0-53.0) % Neutrophils # (1.3-7.7) k/uL Lymphocytes # (1.0-4.8) k/uL APTT 19.0 L (22.0-30.0) sec Sodium (137-145) mmol/L Carbon Dioxide 15 L (22-30) mmol/L BUN 31 H (9-20) mg/dL Glucose 179 H (74-99) mg/dL POC Glucose (mg/dL) (70-110) mg/dL Troponin I (0.000-0.034) ng/mL Lipase 310 H (23-300) U/L TSH 0.306 L (0.465-4.680) mIU/L Free T3 pg/mL 1.60 L (2.30-4.20) pg/mL Serum Alcohol 416 H* mg/dL 04/08/24 04/08/24 04/08/24 Range/Units 06:00 06:00 06:00 RBC 3.56 L (4.30-5.90) m/uL Hgb 11.5 L (13.0-17.5) gm/dL Hct 34.7 L (39.0-53.0) % Neutrophils # 7.8 H (1.3-7.7) k/uL Lymphocytes # 0.9 L (1.0-4.8) k/uL APTT (22.0-30.0) sec Sodium 136 L (137-145) mmol/L Carbon Dioxide (22-30) mmol/L BUN 30 H (9-20) mg/dL Glucose 189 H (74-99) mg/dL POC Glucose (mg/dL) (70-110) mg/dL Troponin I 0.352 H* (0.000-0.034) ng/mL Lipase (23-300) U/L TSH (0.465-4.680) mIU/L Free T3 pg/mL (2.30-4.20) pg/mL Serum Alcohol mg/dL 04/08/24 04/08/24 04/08/24 Range/Units 06:26 09:43 12:15 RBC 3.50 L (4.30-5.90) m/uL Hgb 11.4 L (13.0-17.5) gm/dL Hct 34.0 L (39.0-53.0) % Neutrophils # (1.3-7.7) k/uL Lymphocytes # (1.0-4.8) k/uL APTT (22.0-30.0) sec Sodium (137-145) mmol/L Carbon Dioxide (22-30) mmol/L BUN (9-20) mg/dL Glucose (74-99) mg/dL POC Glucose (mg/dL) 216 H 120 H (70-110) mg/dL Troponin I (0.000-0.034) ng/mL Lipase (23-300) U/L TSH (0.465-4.680) mIU/L Free T3 pg/mL (2.30-4.20) pg/mL Serum Alcohol mg/dL
[2024-04-08 18:04] LABS: Glucose,Whole Blood 165 mg/dL (70-110)
[2024-04-08 21:06] LABS: Glucose,Whole Blood 94 mg/dL (70-110)
[2024-04-08] MEDS: LATANOPROST 0.005% OPHTH DROPS 2.5 ML BTL BOTH EYES SCH (21:26)
[2024-04-08] MEDS: TAMSULOSIN 0.4 MG CAP.ER.24H PO SCH (21:26)
[2024-04-09 06:25] LABS: ALT 14 U/L (4-49); AST 34 U/L (17-59); African American GFR (CKD) >90 (>60 ml/min/1.73 sqM); Albumin 3.6 g/dL (3.5-5.0); Alkaline Phosphatase 91 U/L (38-126); Anion Gap 6 mmol/L; Blood Urea Nitrogen 19 mg/dL (9-20); Calcium 8.8 mg/dL (8.4-10.2); Carbon Dioxide 24 mmol/L (22-30); Chloride 102 mmol/L (98-107); Glucose 117 mg/dL (74-99); Magnesium 1.8 mg/dL (1.6-2.3); Non-African American GFR(CKD) >90 (>60 ml/min/1.73 sqM); Potassium 4.2 mmol/L (3.5-5.1); Sodium 132 mmol/L (137-145); Total Bilirubin 1.3 mg/dL (0.2-1.3); Total Protein 6.4 g/dL (6.3-8.2)
[2024-04-09 06:31] LABS: Basophils % (A) 0 %; Eosinophils # (A) 0.1 k/uL (0-0.7); Eosinophils % (A) 2 %; HCT 34.9 % (39.0-53.0); HGB 11.4 gm/dL (13.0-17.5); Lymphocytes # (A) 1.2 k/uL (1.0-4.8); Lymphocytes % (A) 24 %; MCH 32.2 pg (25.0-35.0); MCHC 32.6 g/dL (31.0-37.0); MCV 98.9 fL (80.0-100.0); Macrocytosis Slight; Mean Platelet Volume 9.9; Monocytes # (A) 0.3 k/uL (0-1.0); Monocytes % (A) 5 %; Neutrophils # (A) 3.4 k/uL (1.3-7.7); Neutrophils % (A) 66 %; Platelet Count 124 k/uL (150-450); RBC 3.53 m/uL (4.30-5.90); RDW 14.8 % (11.5-15.5); WBC 5.1 k/uL (3.8-10.6)
[2024-04-09] MEDS ORDERED: Magnesium Replacement Protocol 1 EACH MISC MISCELLANE PRN (06:31)
[2024-04-09 06:39] LABS: Partial Thromboplastin Time 30.8 sec (22.0-30.0); Prothrombin Time 10.5 sec (10.0-12.5)
[2024-04-09] MEDS: MAGNESIUM SULFATE-D5W PMX 1 GM in DEXTROSE/WATER 1 100ML.BAG IVPB ONE (07:01)
--- NOTE | 2024-04-09 11:16 | P.PN ---
Subjective Progress Note Date: 04/09/24 Principal diagnosis: Atrial fibrillation. Patient is a 63-year-old male with past medical history significant for alcoholism, atrial fibrillation, CVA/TIA, dissecting aortic aneurysm, mitral valve repair, cardiomyopathy, prior drug overdose, HIV, asthma/COPD, among other things. Of note, patiently worked up at outside hospital for CVA/TIA symptoms in November,. Found to have a large dissecting type a aortic aneurysm, he was initially transferred to [facility] and has been following with Dr. Beal. Patient also recently underwent left total hip arthroplasty in March,. I was contacted by [facility] early this morning, they were concerned that the patient would be best monitored in the intensive care unit. Patient in atrial fibrillation with rapid ventricular response, which has been resistant to multiple antiarrhythmics. Also, has a large chronic dissecting proximal aortic aneurysm. He is acutely intoxicated. Patient went up north on Sunday and returned last night. He did not bring his medications with him. He also was drinking heavily. Drinking 1/5 a day. His alcohol level was greater than 400 on arrival. He fell multiple times, including down 1 flight of stairs. Approximately 4 steps. May have lost consciousness. Presented the emergency department yesterday evening. He was found to be in atrial fibrillation with rapid ventricular response. Cardiology did attempt Cardizem infusion, this induced some hypotension. Patient was switc hed to an amiodarone infusion and was bolused 150 mg over 10 minutes. Also, continued on the amiodarone protocol. A-fib RVR was resistant to antiarrhythmics. Patient has known history of A-fib. He does have a dissecting aortic aneurysm. This was redemonstrated on chest CTA done last night. There is a extensive dissecting aortic aneurysm of the proximal aortic arch. No evidence of extension into the super aortic vessels. Reportedly felt to be stable from previous exam. Otherwise, no acute pulmonary disease. CBC: WBC count 6.9, hemoglobin 11.8, hematocrit 35.1, platelets 218. CMP: Sodium 137, potassium 4.4, chloride 101, serum bicarb 15, BUN 31, creatinine 0.99, glucose 179. Lipase 310. Serum EtOH 416. Urine toxicology screen otherwise negative. Patient is currently being evaluated in the emergency department. He is alert and oriented, actually mentation is better than expected, considering his alcohol level. He remains in atrial fibrillation after the above-mentioned inte rventions. Cardiology is recommending cardioversion. Blood pressure currently 89/77 mmHg. Heart rate remains tachycardic in the 160s to 170s. Reports some substernal chest pain. He is nauseas. Appears mildly tachypneic. SpO2 99 %. On room air. Normal saline infusing at 75 mL/h. Patient is going to be given conscious sedation, and cardioversion will be performed. Patient will be transferred to the intensive care unit. Progress note dated April 09, 2024. The patient was seen in consultation yesterday. He is a 63-year-old male who is seen today in room 260. Currently, he is on room air. He is receiving IV heparin, and IV esmolol at 75 mcg/kg/min. The patient is currently in normal sinus rhythm. Lung sounds are clear. His only complaint, is pain in the left leg and right arm. I did speak to Dr. Smalls about this patient. White count is 5.1, hemoglobin 11.4, macro 34.9, platelet count 124,000. Sodium 132, potassium 4.2, chlorides 102, CO2 24, BUN 19, creatinine 0.84. Glucose is 117. Objective - Vital Signs Vital signs: Vital Signs Temp 97.7 F 04/09/24 08:00 Pulse 99 04/09/24 10:00 Resp 14 04/09/24 10:00 BP 100/52 04/09/24 10:00 Pulse Ox 94 L 04/09/24 10:00 FiO2 Intake & Output 04/08/24 04/09/24 04/09/24 18:59 06:59 18:59 Intake Total 605 1201.438 80 Output Total 825 800 200 Balance -220 401.438 -120 Weight 71.214 kg 81.8 kg Intake: IV 405 240 80 Sodium Chloride 0.9% 1, 405 240 80 000 ml @ 20 mls/hr IV . Q24H ALEX Rx#:[id number] Intake, IV Titration 711.438 Amount Amiodarone 450 mg In 250 Dextrose 5% in Water 250 ml @ 0.5 MG/MIN 16.667 mls/hr IV .Q15H ALEX Rx#: [id number] Esmolol in Sodium 336.524 Chloride Pmx 2.5 gm In Saline 1 250ml.bag @ 50 MCG/KG/MIN 21.364 mls/hr IV .[id number] ALEX Rx#: [id number] Heparin Sod,Pork in 0.45% 124.914 NaCl 25,000 unit In 0.45 % NaCl 1 250ml.bag @ 12 UNITS/KG/HR 8.546 mls/hr IV .Q24H ALEX Rx#: [id number] Oral 200 250 Output: Urine 825 800 200 Other: Voiding Method Urinal Urinal Urinal # Voids 1 # Bowel Movements 1 - Exam No acute distress, oriented 3. Currently on room air. HEENT examination is grossly unremarkable. Mucous membranes are moist. No oral lesions. Neck supple. Full range of motion. No adenopathy thyromegaly or neck vein distention. Cardiovascular examination reveals regular rhythm rate. S1-S2 normal. No S3 or S4. No discernible murmur noted. Lungs reveal clear breath sounds. Breath sounds are equal bilaterally. No ad ventitious lung sounds including wheezes rhonchi or crackles. Abdomen soft bowel sounds are heard. No masses or tenderness. Extremities are intact. No cyanosis clubbing or edema. Skin is without rash or lesion. Neurologic examination is brief but nonfocal. - Labs CBC & Chem 7: 04/09/24 05:33 04/09/24 05:33 Labs: Abnormal Lab Results - Last 24 Hours (Table) 04/08/24 04/08/24 04/09/24 Range/Units 12:15 18:02 05:33 RBC (4.30-5.90) m/uL Hgb (13.0-17.5) gm/dL Hct (39.0-53.0) % Plt Count (150-450) k/uL APTT (22.0-30.0) sec Sodium 132 L (137-145) mmol/L Glucose 117 H (74-99) mg/dL POC Glucose (mg/dL) 120 H 165 H (70-110) mg/dL 04/09/24 04/09/24 Range/Units 05:33 05:33 RBC 3.53 L (4.30-5.90) m/uL Hgb 11.4 L (13.0-17.5) gm/dL Hct 34.9 L (39.0-53.0) % Plt Count 124 L (150-450) k/uL APTT 30.8 H (22.0-30.0) sec Sodium (137-145) mmol/L Glucose (74-99) mg/dL POC Glucose (mg/dL) (70-110) mg/dL Assessment and Plan Assessment: Atrial fibrillation with rapid ventricular response. Acute dyspnea, secondary to above. Acute alcohol intoxication, serum alcohol level 416 on arrival. Dissecting aortic aneurysm, type a, reportedly follows outpatient with cardiovascular surgery. History of valvular heart disease and mitral valve repair. History of atrial fibrillation. History of drug overdose and ventilator dependent respiratory failure. History of alcoholism. History of HIV, on HAART. History of avascular necrosis and status post left total hip arthroplasty 03/18/2024. History of asthma/COPD, stable. Plan: Plan dated April 09, 2024. The patient is seen today in the intensive care unit, room 260. He is on room air. He is receiving IV heparin, and esmolol 75 mcg/kg/min. The patient is in normal sinus rhythm. Lung sounds are clear. He complains only of pain in his left leg and right arm. Labs, x-rays, medications are reviewed. We will continue to follow the patient. Prognosis is guarded. Cardiothoracic surgery is awaiting paperwork from the [facility]. Time with Patient: Less than 30
[2024-04-09 11:40] LABS: Glucose,Whole Blood 223 mg/dL (70-110)
[2024-04-09 13:25] LABS: Glucose,Whole Blood 230 mg/dL (70-110)
[2024-04-09] MEDS: METOPROLOL TARTRATE 25 MG TAB PO SCH (13:25)
--- NOTE | 2024-04-09 14:55 | P.PN ---
Subjective Progress Note Date: 04/09/24 HISTORY OF PRESENTING ILLNESS Patient is a 63-year-old male who is known to Dr. Morales. He has a past medical history of HIV, MSM, alcoholism, paroxysmal atrial fibrillation, CVA/TIA. In December 2023 he had an outpatient CTA which showed 70% stenosis in proximal LAD along with that it also showed type a aortic dissection with a dissection flap arising near the sinotubular junction. Apparently carotids were not involved. She does have a prior history of mitral valve repair in 2000. He also has cardiomyopathy with a EF of around 35 to 40%. Prior history of drug abuse. This time he presented to the hospital because of increased generalized weakness and multiple falls. Apparently he was up north spending time with his . He was drinking heavily. On arrival his alcohol level is more than 400. Admit ECG shows A-fib RVR with heart rate in 160s, with nonspecific interventricular conduction delay. His other labs shows hemoglobin of 11.5, sodium 136, BUN 30, creatinine 1.16, troponin at 0.35 Progress note April 09, 2024 Patient is seen and examined at bedside this a.m. He denies having any active chest pain chest pressure shortness of breath. He maintains normal sinus rhythm. He is hemodynamically stable. Appears euvolemic PHYSICAL EXAMINATION Examined after the cardioversion Head: Normocephalic. Eyes: Sclerae nonicteric. Neck: Brisk carotid upstroke, no jugular venous distention. Lungs: Clear to auscultation. Heart: Regular rate and rhythm, S1-S2 audible, no murmurs appreciated Abdomen: Soft nontender, positive bowel sounds. Extremities: No edema, intact distal pulses. Neuro: Alert, oritented, no focal deficits. Detailed neuro exam was not performed. ASSESSMENT Atrial fibrillation with RVR, symptomatic with hemodynamic compromise. Got further hypotensive with Cardizem drip therefore it was discontinued. Status post cardioversion, attempted 120 J unsuccessful, second attempt 200 J successful. Elevated troponin, type II NSTEMI in setting of A-fib and stable CAD Prior h/o of TIA, with elevated [id number] score cardiomyopathy EF 35-40% Type A aortic dissection Severe Aortic regurgitation CAD, moderate to severe disease in LAD from CTA coronary Prior history of mitral valve repair in 2000 Alcohol intoxication, currently undergoing alcohol withdrawal Prior history of alcohol and drug abuse HIV PLAN Discontinue amiodarone drip. Start amiodarone 400 mg twice daily. Start metoprolol 25 mg twice daily Continue esmolol drip at 50 mcg. Continue IV heparin drip without bolus. Patient was on Eliquis at home. Hold antihypertensive medications at this time due to low blood pressure Obtain medical records from [facility] to assess the nature and workup done for his type A aortic dissection. In my practice it is unusual to manage type a aortic dissection in a conservative way. As per the patient and patient's family they have been evaluated by surgeon at [facility] and they have been told that it needs to be managed conservatively. To confirm this I will obtain medical records from [facility]. Medical records are still awaited from [facility]. Once reviewed, will decide if patient needs to be managed conservatively or needs to be sent out to [facility] for surgical repair of aortic regurgitation and aortic dissection. Objective - Vital Signs Vital signs: Vital Signs Temp 97.7 F 04/09/24 08:00 Pulse 99 04/09/24 10:00 Resp 14 04/09/24 10:00 BP 100/52 04/09/24 10:00 Pulse Ox 94 L 04/09/24 10:00 FiO2 Intake & Output 04/08/24 04/09/24 04/09/24 18:59 06:59 18:59 Intake Total 605 1201.438 80 Output Total 825 800 200 Balance -220 401.438 -120 Weight 71.214 kg 81.8 kg Intake: IV 405 240 80 Sodium Chloride 0.9% 1, 405 240 80 000 ml @ 20 mls/hr IV . Q24H ALEX Rx#:[id number] Intake, IV Titration 711.438 Amount Amiodarone 450 mg In 250 Dextrose 5% in Water 250 ml @ 0.5 MG/MIN 16.667 mls/hr IV .Q15H ALEX Rx#: [id number] Esmolol in Sodium 336.524 Chloride Pmx 2.5 gm In Saline 1 250ml.bag @ 50 MCG/KG/MIN 21.364 mls/hr IV .[id number] ALEX Rx#: [id number] Heparin Sod,Pork in 0.45% 124.914 NaCl 25,000 unit In 0.45 % NaCl 1 250ml.bag @ 12 UNITS/KG/HR 8.546 mls/hr IV .Q24H ALEX Rx#: [id number] Oral 200 250 Output: Urine 825 800 200 Other: Voiding Method Urinal Urinal Urinal # Voids 1 # Bowel Movements 1 - Labs CBC & Chem 7: 04/09/24 05:33 04/09/24 05:33 Labs: Abnormal Lab Results - Last 24 Hours (Table) 04/08/24 04/09/24 04/09/24 Range/Units 18:02 05:33 05:33 RBC 3.53 L (4.30-5.90) m/uL Hgb 11.4 L (13.0-17.5) gm/dL Hct 34.9 L (39.0-53.0) % Plt Count 124 L (150-450) k/uL APTT (22.0-30.0) sec Sodium 132 L (137-145) mmol/L Glucose 117 H (74-99) mg/dL POC Glucose (mg/dL) 165 H (70-110) mg/dL 04/09/24 04/09/24 04/09/24 Range/Units 05:33 11:38 13:24 RBC (4.30-5.90) m/uL Hgb (13.0-17.5) gm/dL Hct (39.0-53.0) % Plt Count (150-450) k/uL APTT 30.8 H (22.0-30.0) sec Sodium (137-145) mmol/L Glucose (74-99) mg/dL POC Glucose (mg/dL) 223 H 230 H (70-110) mg/dL
--- NOTE | 2024-04-09 15:42 | P.PN ---
Subjective Progress Note Date: 04/09/24 Patient is a 63-year-old male with history of EtOH use (no history of delirium tremens or admission for ETOH intoxication. Last drink was 1 PM today), A-fib (on Eliquis), aortic dissection type a (managed by Dr. Beal since December 2023), and mitral valve replacement came in for a fall. He reports that he was on a trip up [place] with his and had been drinking since Sunday and had multiple falls during that trip. However yesterday, he tried to walk upstairs but fell and hit his head with associated loss of consciousness which caused him to seek care. He also reports weakness of his legs and pain on his knees and hips. He denies nausea and vomiting, hematemesis, hematochezia, chest pain, shortness of breath, jaundice, tremors, changes in sensation, changes in vision, or facial asymmetry. In the emergency room, EKG showed A-fib with RVR with a rate of 167, QTc 387, no ST-T changes. CT head showed no acute intracranial process. Chest x-ray showed no acute cardiopulmonary process. Knee x-ray showed no acute fractures or process. Pelvic x-ray showed no acute fractures or process. Chest CT revealed Esteban type A aortic dissection arising from the proximal aortic arch. Abdomen CT showed aortic dissection extends into the abdominal aorta and terminates in the left common iliac and right common femoral arteries. Sodium 137 bicarb 15 glucose 179 lipase 310 TSH 0.3 Free T41.47 PTT 19 PT 10 INR 1. Urine tox negative. Serum alcohol 416. On admission patient is afebrile at 98.9 Fahrenheit tachycardic at 170 with a respiratory rate of 20 blood pressure normotensive at 105/85 oxygen saturation 96% at room air Progress note 04/09/2024 patient seen and examined at bedside. Patient remains in ICU. He states he has continued pain of left arm and left leg primarily. Pain medication is mildly improving his symptoms. He denied chest pain, palpitations, shortness of breath and had no other complaints at this time. Awaiting CABG workup and medical record. Review of systems: Pertinent positives and negatives as discussed in HPI, a complete review of systems was performed and all other systems are negative. Physical examination: Vital signs reviewed General: non toxic, no distress, appears older stated age, normal weight Derm: no unusual rashes/lesions, warm Head: atraumatic, normocephalic, symmetric Eyes: EOMI, no lid lag, anicteric sclera, pupils equal round reactive to light ENT: Nose and ears atraumatic Neck: No cervical lymphadenopathy, trachea midline, supple Mouth: no lip lesion, mucus membranes moist Cardiovascular: S1S2 regular no murmur Lungs: CTA bilateral, no rhonchi, no rales, no accessory muscle use Abdominal: soft, no tenderness, no guarding Ext: muscle strength 4 out of 5 in upper extremities 5/5 in lower extremities grossly, lower extremity hip ROM limited by pain, no gross muscle atrophy, no contractures, positive dorsalis pedis pulse bilateral, no edema Neuro: CN II-XI grossly intact, no gross focal neuro deficits Psych: Alert, oriented, appropriate affect and mood Labs reviewed todayWBC 5.1, hemoglobin 11.4, platelets 124, a PTT 30.8, sodium 132, potassium 4.2, bicarb 24, BUN 19, creatinine 0.84, glucose [id number] Imaging reviewed todaynone Assessment/Plan: Patient is critically ill. Needs close monitoring. Prognosis guarded. #. Type A aortic dissection, appearing stable # systolic CHF, without exacerbation Patient previously treated at [facility] for aortic dissection - Echocardiogram 35% ejection fraction, severe by atrial dilation, moderate to severe aortic regurgitation Awaiting records from [facility] Vascular surgery following Pending records, consider transferring patient to [facility] #. A-fib with RVR -Discontinued Cardizem and amiodarone Continue heparin and esmolol gtt, monitor BP and aptt, monitor for bleeding continue metoprolol 25 BID, amiodaron 400 BID S/P successful cardioversion - Cardiology following #. EtOH intoxication, impending withdrawal Serum alcohol 416, lipase 310 -Continue with IV Ativan per CIWA protocol, monitor for sedation -Continue with IVF NS 0.9% at 20 cc/h (judicious use of IVFs in setting of systolic CHF) -Continue with thiamine 100 mg p.o. daily -Continue with Zofran 4 mg IVP every 6 as needed for nausea and vomiting -Encourage oral hydration and feeding -Fall precautions -Cardiac monitoring Monitor CMP #euthyroid sick syndrome TSH 0.306, free T4 1.47, free T31.60 continue home levothyroxine 200 mcg #HIV Pending CD4 count #. Mechanical fall w/ loss of consciousness -CT head and chest, knee, and pelvic x-rays were unremarkable. Patient experienced loss of consciousness and complains of knee hip and head pain. -Pain control with morphine 4 mg ibuprofen SQ for as needed -PT consult for weakness #. Hyperglycemia No Hx of DM. -ISS sliding scale <70kg -POC glucose checks ACHS -A1c 5.1% #. Normocytic anemia due to ETOH intake -Monitor with CBC Chronic conditions: HIV, asthma, aortic dissection, PTSD, GERD, hypertension, anxiety, depression, CHF with reduced ejection fraction (35% echo done August 2022) DVT prophylaxis: SCDs GI prophylaxis: Protonix 40 mg IV OD CODE STATUS: Full Discussed with: Patient Anticipated discharge place: pending clinical course I saw and evaluated the patient during the granados and critical portions of this encounter, and discussed the case in detail with the resident author of this note, I agree with the Assessment and Plan, and my changes, if any, are highlighted in blue. Objective - Vital Signs Vital signs: Vital Signs Temp 98.4 F 04/09/24 12:00 Pulse 100 04/09/24 15:00 Resp 18 04/09/24 15:00 BP 94/58 04/09/24 15:00 Pulse Ox 100 04/09/24 15:00 FiO2 Intake & Output 04/08/24 04/09/24 04/09/24 18:59 06:59 18:59 Intake Total 605 1201.438 305.086 Output Total 825 800 610 Balance -220 401.438 -304.914 Weight 71.214 kg 81.8 kg Intake: IV 405 240 180 Sodium Chloride 0.9% 1, 405 240 180 000 ml @ 20 mls/hr IV . Q24H [facility] Rx#:[id number] Intake, IV Titration 711.438 125.086 Amount Amiodarone 450 mg In 250 Dextrose 5% in Water 250 ml @ 0.5 MG/MIN 16.667 mls/hr IV .Q15H [facility] Rx#: [id number] Esmolol in Sodium 336.524 Chloride Pmx 2.5 gm In Saline 1 250ml.bag @ 50 MCG/KG/MIN 21.364 mls/hr IV .[id number] [facility] Rx#: [id number] Heparin Sod,Pork in 0.45% 124.914 125.086 NaCl 25,000 unit In 0.45 % NaCl 1 250ml.bag @ 12 UNITS/KG/HR 8.546 mls/hr IV .Q24H [facility] Rx#: [id number] Oral 200 250 Output: Urine 825 800 610 Other: Voiding Method Urinal Urinal Urinal # Voids 1 # Bowel Movements 1 - Labs CBC & Chem 7: 04/09/24 05:33 04/09/24 05:33 Labs: Abnormal Lab Results - Last 24 Hours (Table) 04/08/24 04/09/24 04/09/24 Range/Units 18:02 05:33 05:33 RBC 3.53 L (4.30-5.90) m/uL Hgb 11.4 L (13.0-17.5) gm/dL Hct 34.9 L (39.0-53.0) % Plt Count 124 L (150-450) k/uL APTT (22.0-30.0) sec Sodium 132 L (137-145) mmol/L Glucose 117 H (74-99) mg/dL POC Glucose (mg/dL) 165 H (70-110) mg/dL 04/09/24 04/09/24 04/09/24 Range/Units 05:33 11:38 13:24 RBC (4.30-5.90) m/uL Hgb (13.0-17.5) gm/dL Hct (39.0-53.0) % Plt Count (150-450) k/uL APTT 30.8 H (22.0-30.0) sec Sodium (137-145) mmol/L Glucose (74-99) mg/dL POC Glucose (mg/dL) 223 H 230 H (70-110) mg/dL
[2024-04-09 16:33] LABS: Glucose,Whole Blood 128 mg/dL (70-110)
[2024-04-09] MEDS: Bictegrav/Emtricit/Tenofov Ala [Biktarvy 50-200-25 Mg Tablet] 1 EACH T PO SCH (18:38)
[2024-04-09] MEDS: COBICISTAT PO SCH (18:39)
[2024-04-09] MEDS: DARUNAVIR PO SCH (18:39)
[2024-04-09 20:00] LABS: Glucose,Whole Blood 272 mg/dL (70-110)
[2024-04-09] MEDS: AMIODARONE 200 MG TAB PO SCH (20:19)
[2024-04-09] MEDS: HEPARIN SODIUM 1,000 UN/ML (10ML VL) IV PRN (21:27)
[2024-04-10 00:56] LABS: Glucose,Whole Blood 129 mg/dL (70-110)
[2024-04-10 05:30] LABS: Glucose,Whole Blood 129 mg/dL (70-110)
[2024-04-10 05:33] LABS: HCT 28.7 % (39.0-53.0); MCH 32.9 pg (25.0-35.0); MCHC 33.7 g/dL (31.0-37.0); MCV 97.7 fL (80.0-100.0); Mean Platelet Volume 10.3; RBC 2.94 m/uL (4.30-5.90); RDW 14.9 % (11.5-15.5); WBC 5.5 k/uL (3.8-10.6)
[2024-04-10 05:44] LABS: ALT 11 U/L (4-49); AST 20 U/L (17-59); African American GFR (CKD) >90 (>60 ml/min/1.73 sqM); Alkaline Phosphatase 89 U/L (38-126); Anion Gap 2 mmol/L; Blood Urea Nitrogen 12 mg/dL (9-20); Calcium 8.5 mg/dL (8.4-10.2); Carbon Dioxide 26 mmol/L (22-30); Chloride 105 mmol/L (98-107); Glucose 134 mg/dL (74-99); Magnesium 1.7 mg/dL (1.6-2.3); Non-African American GFR(CKD) >90 (>60 ml/min/1.73 sqM); Potassium 3.9 mmol/L (3.5-5.1); Sodium 133 mmol/L (137-145); Total Protein 5.5 g/dL (6.3-8.2)
[2024-04-10 05:58] LABS: HGB 9.7 gm/dL (13.0-17.5)
[2024-04-10 06:15] LABS: Platelet Count 88 k/uL (150-450)
[2024-04-10] MEDS ORDERED: Potassium Replacement Protocol 1 EACH MISC MISCELLANE PRN (06:53)
[2024-04-10] MEDS ORDERED: Magnesium Replacement Protocol 1 EACH MISC MISCELLANE PRN (06:54)
[2024-04-10] MEDS: MAGNESIUM SULFATE-D5W PMX 1 GM in DEXTROSE/WATER 1 100ML.BAG IVPB ONE (08:13)
[2024-04-10] MEDS: POTASSIUM CHLORIDE ER 20 MEQ TAB.ER PO SCH (08:14)
[2024-04-10] MEDS: METOPROLOL TARTRATE 25 MG TAB PO STA (10:37)
[2024-04-10 11:36] LABS: Glucose,Whole Blood 139 mg/dL (70-110)
[2024-04-10] MEDS: APIXABAN 2.5 MG TABLET PO SCH (11:43)
[2024-04-10 12:04] LABS: T4/T8 Ratio (CD4:CD8) 0.3 (1.0-3.7)
--- NOTE | 2024-04-10 12:05 | P.PN ---
Progress Note - Text Progress Note Date: 04/10/24 HPI: [This is a 63-year-old patient with history of alcoholism, paroxysmal atrial fibrillation now in sinus rhythm had outpatient CTA which revealed 70% stenosis in proximal LAD also had a dissection in the proximal portion of the ascending aorta was seen at [facility] advised conservative management for now. However this needs to be verified. Patient currently in sinus rhythm he has history of mitral valve repair in 2000 and a cardiomyopathy with ejection fraction in the 40% range. He is in sinus rhythm I saw the patient this morning I explained to him that he needs to be compliant and follow-up with [facility] for the ascending aortic flap and further management in this regard. He promises to follow through advised that his heart rate and blood pressure are under good control we will resume Eliquis 2.5 mg twice daily. To continue his other medications as before.]. PHYSICIAL EXAM: [Vitals are stable in sinus rhythm S1-S2 heard normally no significant murmurs lungs reveal decent air entry abdomen is soft the lower extremities reveal diminished pulses Central nervous system normal]. IMPRESSION: 1. [Paroxysmal A-fib in sinus rhythm]. 2. [CAD with ascending aortic flap]. 3. [History of HIV]. 4. [History of alcoholism]. 5. []. RECOMMENDATIONS: [Patient is in sinus rhythm BP under good control will resume Eliquis 2.5 mg twice daily and advised to follow-up with [facility] which patient promises to comply and follow through. Can go to telemetry unit. Prognosis remains guarded].
--- NOTE | 2024-04-10 12:19 | P.PN ---
Subjective Progress Note Date: 04/10/24 Principal diagnosis: Atrial fibrillation. Patient is a 63-year-old male with past medical history significant for alcoholism, atrial fibrillation, CVA/TIA, dissecting aortic aneurysm, mitral valve repair, cardiomyopathy, prior drug overdose, HIV, asthma/COPD, among other things. Of note, patiently worked up at outside hospital for CVA/TIA symptoms in November,. Found to have a large dissecting type a aortic aneurysm, he was initially transferred to [facility] and has been following with Dr. Beal. Patient also recently underwent left total hip arthroplasty in March,. I was contacted by [facility] physicians early this morning, they were concerned that the patient would be best monitored in the intensive care unit. Patient in atrial fibrillation with rapid ventricular response, which has been resistant to multiple antiarrhythmics. Also, has a large chronic dissecting proximal aortic aneurysm. He is acutely intoxicated. Patient went up north on Sunday and returned last night. He did not bring his medications with him. He also was drinking heavily. Drinking 1/5 a day. His alcohol level was greater than 400 on arrival. He fell multiple times, including down 1 flight of stairs. Approximately 4 steps. May have lost consciousness. Presented the emergency department yesterday evening. He was found to be in atrial fibrillation with rapid ventricular response. Cardiology did attempt Cardizem infusion, this induced some hypotension. Patient was switc hed to an amiodarone infusion and was bolused 150 mg over 10 minutes. Also, continued on the amiodarone protocol. A-fib RVR was resistant to antiarrhythmics. Patient has known history of A-fib. He does have a dissecting aortic aneurysm. This was redemonstrated on chest CTA done last night. There is a extensive dissecting aortic aneurysm of the proximal aortic arch. No evidence of extension into the super aortic vessels. Reportedly felt to be stable from previous exam. Otherwise, no acute pulmonary disease. CBC: WBC count 6.9, hemoglobin 11.8, hematocrit 35.1, platelets 218. CMP: Sodium 137, potassium 4.4, chloride 101, serum bicarb 15, BUN 31, creatinine 0.99, glucose 179. Lipase 310. Serum EtOH 416. Urine toxicology screen otherwise negative. Patient is currently being evaluated in the emergency department. He is alert and oriented, actually mentation is better than expected, considering his alcohol level. He remains in atrial fibrillation after the above-mentioned inte rventions. Cardiology is recommending cardioversion. Blood pressure currently 89/77 mmHg. Heart rate remains tachycardic in the 160s to 170s. Reports some substernal chest pain. He is nauseas. Appears mildly tachypneic. SpO2 99 %. On room air. Normal saline infusing at 75 mL/h. Patient is going to be given conscious sedation, and cardioversion will be performed. Patient will be transferred to the intensive care unit. Progress note dated April 09, 2024. The patient was seen in consultation yesterday. He is a 63-year-old male who is seen today in room 260. Currently, he is on room air. He is receiving IV heparin, and IV esmolol at 75 mcg/kg/min. The patient is currently in normal sinus rhythm. Lung sounds are clear. His only complaint, is pain in the left leg and right arm. I did speak to Dr. Smalls about this patient. White count is 5.1, hemoglobin 11.4, macro 34.9, platelet count 124,000. Sodium 132, potassium 4.2, chlorides 102, CO2 24, BUN 19, creatinine 0.84. Glucose is 117. Progress note dated April 10, 2024. 63-year-old male seen today in room 260. The patient is doing reasonably well. The patient is on room air. He is getting saline at KVO. Heparin has been turned off. The patient is a candidate patient to be transferred to the 3 S. floor. The patient has no specific complaints today. Current laboratory data includes a white count 5.5, hemoglobin 9.7, hematocrit 28.7, and a platelet count of 88,000. PTT is 41.2. Sodium 133, potassium 3.9, chlorides 105, CO2 26, BUN 12, creatinine 0.84. Glucose is 139. Albumin is 3.0. Objective - Vital Signs Vital signs: Vital Signs Temp 98.8 F 04/10/24 12:00 Pulse 93 04/10/24 12:00 Resp 14 04/10/24 12:00 BP 132/64 04/10/24 12:00 Pulse Ox 100 04/10/24 09:00 FiO2 Intake & Output 04/09/24 04/10/24 04/10/24 18:59 06:59 18:59 Intake Total 365.086 774.654 534.985 Output Total 785 1100 200 Balance -419.914 -325.346 334.985 Weight 83.7 kg Intake: IV 240 240 60 Sodium Chloride 0.9% 1, 240 240 60 000 ml @ 20 mls/hr IV . Q24H [facility] Rx#:[id number] Intake, IV Titration 125.086 234.654 224.985 Amount Esmolol in Sodium 165.755 Chloride Pmx 2.5 gm In Saline 1 250ml.bag @ 50 MCG/KG/MIN 21.364 mls/hr IV .[id number] [facility] Rx#: [id number] Heparin Sod,Pork in 0.45% 125.086 68.899 124.985 NaCl 25,000 unit In 0.45 % NaCl 1 250ml.bag @ 12 UNITS/KG/HR 8.546 mls/hr IV .Q24H [facility] Rx#: [id number] Magnesium Sulfate-D5w Pmx 100 1 gm In Dextrose/Water 1 100ml.bag @ 100 mls/hr IVPB ONCE ONE Rx#: [id number] Oral 300 250 Output: Urine 785 1100 200 Other: Voiding Method Urinal Urinal Urinal - Exam No acute distress, oriented 3. Currently on room air. HEENT examination is grossly unremarkable. Mucous membranes are moist. No oral lesions. Neck supple. Full range of motion. No adenopathy thyromegaly or neck vein distention. Cardiovascular examination reveals regular rhythm rate. S1-S2 normal. No S3 or S4. No discernible murmur noted. Lungs reveal clear breath sounds. Breath sounds are equal bilaterally. No adventitious lung sounds including wheezes rhonchi or crackles. Abdomen soft bowel sounds are heard. No masses or tenderness. Extremities are intact. No cyanosis clubbing or edema. Skin is without rash or lesion. Neurologic examination is brief but nonfocal. - Labs CBC & Chem 7: 04/10/24 05:01 04/10/24 05:01 Labs: Abnormal Lab Results - Last 24 Hours (Table) 04/09/24 04/09/24 04/09/24 Range/Units 05:33 13:24 16:32 RBC (4.30-5.90) m/uL Hgb (13.0-17.5) gm/dL Hct (39.0-53.0) % Plt Count (150-450) k/uL APTT (22.0-30.0) sec Sodium (137-145) mmol/L Glucose (74-99) mg/dL POC Glucose (mg/dL) 230 H 128 H (70-110) mg/dL Total Protein (6.3-8.2) g/dL Albumin (3.5-5.0) g/dL T-Suppressor Cells 880 H (190-832) cell/ul % CD4 [place] 21 L (35-66) % Absolute CD4 [place] 283 L (443-1471) cell/ul CD4/CD8 Ratio 0.3 L (1.0-3.7) % CD8 Suppressor 66 H (9-37) % 04/09/24 04/09/24 04/10/24 Range/Units 19:58 20:35 00:54 RBC (4.30-5.90) m/uL Hgb (13.0-17.5) gm/dL Hct (39.0-53.0) % Plt Count (150-450) k/uL APTT 34.0 H (22.0-30.0) sec Sodium (137-145) mmol/L Glucose (74-99) mg/dL POC Glucose (mg/dL) 272 H 129 H (70-110) mg/dL Total Protein (6.3-8.2) g/dL Albumin (3.5-5.0) g/dL T-Suppressor Cells (190-832) cell/ul % CD4 [place] (35-66) % Absolute CD4 [place] (443-1471) cell/ul CD4/CD8 Ratio (1.0-3.7) % CD8 Suppressor (9-37) % 04/10/24 04/10/24 04/10/24 Range/Units 05:01 05:01 05:01 RBC 2.94 L (4.30-5.90) m/uL Hgb 9.7 L D (13.0-17.5) gm/dL Hct 28.7 L (39.0-53.0) % Plt Count 88 L (150-450) k/uL APTT 41.2 H (22.0-30.0) sec Sodium 133 L (137-145) mmol/L Glucose 134 H (74-99) mg/dL POC Glucose (mg/dL) (70-110) mg/dL Total Protein 5.5 L (6.3-8.2) g/dL Albumin 3.0 L (3.5-5.0) g/dL T-Suppressor Cells (190-832) cell/ul % CD4 [place] (35-66) % Absolute CD4 [place] (443-1471) cell/ul CD4/CD8 Ratio (1.0-3.7) % CD8 Suppressor (9-37) % 04/10/24 04/10/24 Range/Units 05:28 11:34 RBC (4.30-5.90) m/uL Hgb (13.0-17.5) gm/dL Hct (39.0-53.0) % Plt Count (150-450) k/uL APTT (22.0-30.0) sec Sodium (137-145) mmol/L Glucose (74-99) mg/dL POC Glucose (mg/dL) 129 H 139 H (70-110) mg/dL Total Protein (6.3-8.2) g/dL Albumin (3.5-5.0) g/dL T-Suppressor Cells (190-832) cell/ul % CD4 [place] (35-66) % Absolute CD4 [place] (443-1471) cell/ul CD4/CD8 Ratio (1.0-3.7) % CD8 Suppressor (9-37) % Assessment and Plan Assessment: Atrial fibrillation with rapid ventricular response. Acute dyspnea, secondary to above. Acute alcohol intoxication, serum alcohol level 416 on arrival. Dissecting aortic aneurysm, Type A, reportedly follows outpatient with cardiovascular surgery. History of valvular heart disease and mitral valve repair. History of atrial fibrillation. History of drug overdose and ventilator dependent respiratory failure. History of alcoholism. History of HIV, on HAART. History of avascular necrosis and status post left total hip arthroplasty 03/18/2024. History of asthma/COPD, stable. Plan: Plan dated April 09, 2024. The patient is seen today in the intensive care unit, room 260. He is on room air. He is receiving IV heparin, and esmolol 75 mcg/kg/min. The patient is in normal sinus rhythm. Lung sounds are clear. He complains only of pain in his left leg and right arm. Labs, x-rays, medications are reviewed. We will continue to follow the patient. Prognosis is guarded. Cardiothoracic surgery is awaiting paperwork from the [facility]. Plan dated April 10, 2024. The patient is doing well. He had an uneventful night. She is currently on room air. Heparin has been turned off. The patient could be transferred to the 3 S. floor. No additional recommendations are made. We will continue to follow make recommendations along the way. Prognosis is guarded. Labs, x-rays, and all medications have been reviewed. Time with Patient: Less than 30
--- NOTE | 2024-04-10 15:15 | P.PN ---
Subjective Progress Note Date: 04/10/24 Patient is a 63-year-old male with history of EtOH use (no history of delirium tremens or admission for ETOH intoxication. Last drink was 1 PM today), A-fib (on Eliquis), aortic dissection type a (managed by Dr. Beal since December 2023), and mitral valve replacement came in for a fall. He reports that he was on a trip up [place] with his and had been drinking since Sunday and had multiple falls during that trip. However yesterday, he tried to walk upstairs but fell and hit his head with associated loss of consciousness which caused him to seek care. He also reports weakness of his legs and pain on his knees and hips. He denies nausea and vomiting, hematemesis, hematochezia, chest pain, shortness of breath, jaundice, tremors, changes in sensation, changes in vision, or facial asymmetry. In the emergency room, EKG showed A-fib with RVR with a rate of 167, QTc 387, no ST-T changes. CT head showed no acute intracranial process. Chest x-ray showed no acute cardiopulmonary process. Knee x-ray showed no acute fractures or process. Pelvic x-ray showed no acute fractures or process. Chest CT revealed Esteban type A aortic dissection arising from the proximal aortic arch. Abdomen CT showed aortic dissection extends into the abdominal aorta and terminates in the left common iliac and right common femoral arteries. Sodium 137 bicarb 15 glucose 179 lipase 310 TSH 0.3 Free T41.47 PTT 19 PT 10 INR 1. Urine tox negative. Serum alcohol 416. On admission patient is afebrile at 98.9 Fahrenheit tachycardic at 170 with a respiratory rate of 20 blood pressure normotensive at 105/85 oxygen saturation 96% at room air Progress note 04/10/2024 patient seen and examined at bedside. Patient remains in ICU. He states pain from fall is constant and right arm, with continued pain in left hip area. He continues to have withdrawal symptoms and nausea. He gerald ed chest pain, palpitations, shortness of breath and had no other complaints at this time. Awaiting medical records from December visit to [facility], regarding dissection. Review of systems: Pertinent positives and negatives as discussed in HPI, a complete review of systems was performed and all other systems are negative. Physical examination: Vital signs reviewed General: Resting tremor. Non toxic, no distress, appears older stated age, normal weight Derm: no unusual rashes/lesions, warm Head: atraumatic, normocephalic, symmetric Eyes: EOMI, no lid lag, anicteric sclera, pupils equal round reactive to light ENT: Nose and ears atraumatic Neck: No cervical lymphadenopathy, trachea midline, supple Mouth: no lip lesion, mucus membranes moist Cardiovascular: S1S2 regular, moderate aortic regurgitation Lungs: CTA bilateral, no rhonchi, no rales, no accessory muscle use Abdominal: soft, no tenderness, no guarding Ext: muscle strength 5 out of 5 in upper extremities 5/5 in lower extremities grossly, lower extremity hip ROM limited by pain, no gross muscle atrophy, no contractures, positive dorsalis pedis pulse bilateral, no edema Neuro: CN II-XI grossly intact, no gross focal neuro deficits Psych: Alert, oriented, appropriate affect and mood Labs reviewed todayWBC 5.5, hemoglobin 9.7, platelets 88, APTT 41.2, sodium 133, potassium 3.9, bicarb 26, BUN 12, creatinine 0.84, glucose 134, CD4 helper count 283 Imaging reviewed todaynone Assessment/Plan: Patient is critically ill. Needs close monitoring. Prognosis guarded. #. Type A aortic dissection, appearing stable # systolic CHF, without exacerbation Patient previously treated at [facility] for aortic dissection - Echocardiogram 35% ejection fraction, severe by atrial dilation, moderate to severe aortic regurgitation Vascular surgery following Pending records from [facility] #. 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 EtOH intoxication, impending withdrawal Serum alcohol 416, lipase 310 -Continue with IV Ativan per CIWA protocol, monitor for sedation -Continue with IVF NS 0.9% at 20 cc/h (judicious use of IVFs in setting of systolic CHF) -Continue with thiamine 100 mg p.o. daily -Continue with Zofran 4 mg IVP every 6 as needed for nausea and vomiting -Encourage oral hydration and feeding -Fall precautions -Cardiac monitoring Monitor CMP #euthyroid sick syndrome TSH 0.306, free T4 1.47, free T31.60 continue home levothyroxine 200 mcg #HIV CD4 count 283 #. Mechanical fall w/ loss of consciousness -CT head and chest, knee, and pelvic x-rays were unremarkable. Patient experienced loss of consciousness and complains of knee hip and head pain. -Pain control with morphine 4 mg ibuprofen SQ for as needed -PT consult for weakness #. Hyperglycemia No Hx of DM. -ISS sliding scale <70kg -POC glucose checks ACHS -A1c 5.1% #. Normocytic anemia due to ETOH intake - Initial hemoglobin 11.4 => 9.7 -Monitor with CBC Chronic conditions: HIV, asthma, aortic dissection, PTSD, GERD, hypertension, anxiety, depression, CHF with reduced ejection fraction (35% echo done August 2022) DVT prophylaxis: SCDs GI prophylaxis: Protonix 40 mg IV OD CODE STATUS: Full Discussed with: Patient Anticipated discharge place: pending clinical course I saw and evaluated the patient during the granados and critical portions of this encounter, and discussed the case in detail with the resident author of this no te. The assessment and plan was discussed as below. Patient with no complaints. States he was hospitalized at [facility] and [facility] for cardiac reasons, found to have an aortic dissection but discharge without outpatient follow up. It does not seem that he follows a CT surgeon in the outpatient setting. Discussed with RN, we will attempt to obtain records from [facility]. Type A aortic dissection: Awaiting records from [facility] or [facility]. Maintain SBP between 100-120. Dilaudid 0.5 mg IV Q3H or Morphine 4 mg IV Q4H PRN for pain. Atrial fibrillation with RVR: Amiodarone 400 mg PO BID. Currently off Esmolol drip. Metoprolol 25 mg PO BID. ETOH intoxication with impending withdrawal: CIWA protocol with Ativan PRN. Type II NSTEMI likely related to above: Lipitor 80 mg PO QD. Metoprolol as above. Syncope likely related to above Normocytic anemia Thrombocytopenia: Obtain HIT panel Systolic CHF EF 35% not in acute exacerbation Moderate to severe aortic regurgitation Euthyroid sick syndrome: Synthroid 200 mcg PO QD. HIV: Biktarvy 50-200-25mg PO QD. Prezcobix 800-150mg PO QD. Objective - Vital Signs Vital signs: Vital Signs Temp 98.8 F 10/10/24 12:00 Pulse 93 04/10/24 12:00 Resp 14 04/10/24 12:00 BP 132/64 04/10/24 12:00 Pulse Ox 100 04/10/24 09:00 FiO2 Intake & Output 04/09/24 04/10/24 04/10/24 18:59 06:59 18:59 Intake Total 365.086 435.158 3262.985 Output Total 785 1100 700 Balance -419.914 -325.346 434.985 Weight 83.7 kg Intake: IV 240 240 160 Sodium Chloride 0.9% 1, 240 240 160 000 ml @ 20 mls/hr IV . Q24H [facility] Rx#:[id number] Intake, IV Titration 125.086 234.654 224.985 Amount Esmolol in Sodium 165.755 Chloride Pmx 2.5 gm In Saline 1 250ml.bag @ 50 MCG/KG/MIN 21.364 mls/hr IV .[id number] [facility] Rx#: [id number] Heparin Sod,Pork in 0.45% 125.086 68.899 124.985 NaCl 25,000 unit In 0.45 % NaCl 1 250ml.bag @ 12 UNITS/KG/HR 8.546 mls/hr IV .Q24H [facility] Rx#: [id number] Magnesium Sulfate-D5w Pmx 100 1 gm In Dextrose/Water 1 100ml.bag @ 100 mls/hr IVPB ONCE ONE Rx#: [id number] Oral 300 750 Output: Urine 785 1100 700 Other: Voiding Method Urinal Urinal Urinal # Bowel Movements 1 - Labs CBC & Chem 7: 04/10/24 05:01 04/10/24 05:01 Labs: Abnormal Lab Results - Last 24 Hours (Table) 04/09/24 04/09/24 04/09/24 Range/Units 05:33 16:32 19:58 RBC (4.30-5.90) m/uL Hgb (13.0-17.5) gm/dL Hct (39.0-53.0) % Plt Count (150-450) k/uL APTT (22.0-30.0) sec Sodium (137-145) mmol/L Glucose (74-99) mg/dL POC Glucose (mg/dL) 128 H 272 H (70-110) mg/dL Total Protein (6.3-8.2) g/dL Albumin (3.5-5.0) g/dL T-Suppressor Cells 880 H (190-832) cell/ul % CD4 [place] 21 L (35-66) % Absolute CD4 [place] 283 L (443-1471) cell/ul CD4/CD8 Ratio 0.3 L (1.0-3.7) % CD8 Suppressor 66 H (9-37) % 04/09/24 04/10/24 04/10/24 Range/Units 20:35 00:54 05:01 RBC (4.30-5.90) m/uL Hgb (13.0-17.5) gm/dL Hct (39.0-53.0) % Plt Count (150-450) k/uL APTT 34.0 H (22.0-30.0) sec Sodium 133 L (137-145) mmol/L Glucose 134 H (74-99) mg/dL POC Glucose (mg/dL) 129 H (70-110) mg/dL Total Protein 5.5 L (6.3-8.2) g/dL Albumin 3.0 L (3.5-5.0) g/dL T-Suppressor Cells (190-832) cell/ul % CD4 [place] (35-66) % Absolute CD4 [place] (443-1471) cell/ul CD4/CD8 Ratio (1.0-3.7) % CD8 Suppressor (9-37) % 04/10/24 04/10/24 04/10/24 Range/Units 05:01 05:01 05:28 RBC 2.94 L (4.30-5.90) m/uL Hgb 9.7 L D (13.0-17.5) gm/dL Hct 28.7 L (39.0-53.0) % Plt Count 88 L (150-450) k/uL APTT 41.2 H (22.0-30.0) sec Sodium (137-145) mmol/L Glucose (74-99) mg/dL POC Glucose (mg/dL) 129 H (70-110) mg/dL Total Protein (6.3-8.2) g/dL Albumin (3.5-5.0) g/dL T-Suppressor Cells (190-832) cell/ul % CD4 [place] (35-66) % Absolute CD4 [place] (443-1471) cell/ul CD4/CD8 Ratio (1.0-3.7) % CD8 Suppressor (9-37) % 04/10/24 Range/Units 11:34 RBC (4.30-5.90) m/uL Hgb (13.0-17.5) gm/dL Hct (39.0-53.0) % Plt Count (150-450) k/uL APTT (22.0-30.0) sec Sodium (137-145) mmol/L Glucose (74-99) mg/dL POC Glucose (mg/dL) 139 H (70-110) mg/dL Total Protein (6.3-8.2) g/dL Albumin (3.5-5.0) g/dL T-Suppressor Cells (190-832) cell/ul % CD4 [place] (35-66) % Absolute CD4 [place] (443-1471) cell/ul CD4/CD8 Ratio (1.0-3.7) % CD8 Suppressor (9-37) %
[2024-04-10 16:36] LABS: Glucose,Whole Blood 136 mg/dL (70-110)
[2024-04-10] MEDS: METOPROLOL SUCCINATE (ER) 25 MG TAB.ER.24H PO SCH (16:42)
[2024-04-10] MEDS: DAPAGLIFLOZIN PROPANEDIOL 5 MG TABLET PO SCH (16:42)
[2024-04-10] MEDS: LOSARTAN 25 MG TAB PO SCH (16:42)
[2024-04-10] MEDS: SACUBITRIL/VALSARTAN 24 MG-26 MG TABLET PO SCH (16:42)
[2024-04-10] MEDS: SPIRONOLACTONE 25 MG TAB PO SCH (16:42)
[2024-04-10] MEDS: FENOFIBRATE 54 MG TAB PO SCH (16:42)
[2024-04-10 20:16] LABS: Glucose,Whole Blood 175 mg/dL (70-110)
[2024-04-11] MEDS: ALBUTEROL NEBULIZED 2.5 MG/3 ML INHALATION PRN (03:42)
[2024-04-11 06:17] LABS: Glucose,Whole Blood 104 mg/dL (70-110)
[2024-04-11 06:31] LABS: HCT 29.8 % (39.0-53.0); HGB 9.6 gm/dL (13.0-17.5); Hypochromasia Slight; MCH 32.1 pg (25.0-35.0); MCHC 32.2 g/dL (31.0-37.0); MCV 99.6 fL (80.0-100.0); Mean Platelet Volume 10.1; Platelet Count 112 k/uL (150-450); RBC 2.99 m/uL (4.30-5.90); RDW 14.3 % (11.5-15.5); WBC 5.4 k/uL (3.8-10.6)
[2024-04-11 06:42] LABS: ALT 10 U/L (4-49); AST 20 U/L (17-59); African American GFR (CKD) 82 (>60 ml/min/1.73 sqM); Albumin 3.2 g/dL (3.5-5.0); Alkaline Phosphatase 77 U/L (38-126); Anion Gap 3 mmol/L; Blood Urea Nitrogen 15 mg/dL (9-20); Calcium 8.8 mg/dL (8.4-10.2); Carbon Dioxide 27 mmol/L (22-30); Chloride 103 mmol/L (98-107); Glucose 107 mg/dL (74-99); Magnesium 1.7 mg/dL (1.6-2.3); Non-African American GFR(CKD) 71 (>60 ml/min/1.73 sqM); Potassium 4.5 mmol/L (3.5-5.1); Sodium 133 mmol/L (137-145); Total Bilirubin 0.7 mg/dL (0.2-1.3); Total Protein 5.8 g/dL (6.3-8.2)
[2024-04-11 11:42] LABS: Glucose,Whole Blood 114 mg/dL (70-110)
--- NOTE | 2024-04-11 11:57 | P.PN ---
Subjective Progress Note Date: 04/11/24 Principal diagnosis: Atrial fibrillation. Patient is a 63-year-old male with past medical history significant for alcoholism, atrial fibrillation, CVA/TIA, dissecting aortic aneurysm, mitral valve repair, cardiomyopathy, prior drug overdose, HIV, asthma/COPD, among other things. Of note, patiently worked up at outside hospital for CVA/TIA symptoms in November,. Found to have a large dissecting type a aortic aneurysm, he was initially transferred to [facility] and has been following with Dr. Beal. Patient also recently underwent left total hip arthroplasty in March,. I was contacted by [facility] physicians early this morning, they were concerned that the patient would be best monitored in the intensive care unit. Patient in atrial fibrillation with rapid ventricular response, which has been resistant to multiple antiarrhythmics. Also, has a large chronic dissecting proximal aortic aneurysm. He is acutely intoxicated. Patient went up [place] and returned last night. He did not bring his medications with him. He also was drinking heavily. Drinking 1/5 a day. His alcohol level was greater than 400 on arrival. He fell multiple times, including down 1 flight of stairs. Approximately 4 steps. May have lost consciousness. Presented the emergency department yesterday evening. He was found to be in atrial fibrillation with rapid ventricular response. Cardiology did attempt Cardizem infusion, this induced some hypotension. Patient was switc hed to an amiodarone infusion and was bolused 150 mg over 10 minutes. Also, continued on the amiodarone protocol. A-fib RVR was resistant to antiarrhythmics. Patient has known history of A-fib. He does have a dissecting aortic aneurysm. This was redemonstrated on chest CTA done last night. There is a extensive dissecting aortic aneurysm of the proximal aortic arch. No evidence of extension into the super aortic vessels. Reportedly felt to be stable from previous exam. Otherwise, no acute pulmonary disease. CBC: WBC count 6.9, hemoglobin 11.8, hematocrit 35.1, platelets 218. CMP: Sodium 137, potassium 4.4, chloride 101, serum bicarb 15, BUN 31, creatinine 0.99, glucose 179. Lipase 310. Serum EtOH 416. Urine toxicology screen otherwise negative. Patient is currently being evaluated in the emergency department. He is alert and oriented, actually mentation is better than expected, considering his alcohol level. He remains in atrial fibrillation after the above-mentioned inte rventions. Cardiology is recommending cardioversion. Blood pressure currently 89/77 mmHg. Heart rate remains tachycardic in the 160s to 170s. Reports some substernal chest pain. He is nauseas. Appears mildly tachypneic. SpO2 99 %. On room air. Normal saline infusing at 75 mL/h. Patient is going to be given conscious sedation, and cardioversion will be performed. Patient will be transferred to the intensive care unit. Progress note dated April 09, 2024. The patient was seen in consultation yesterday. He is a 63-year-old male who is seen today in room 260. Currently, he is on room air. He is receiving IV heparin, and IV esmolol at 75 mcg/kg/min. The patient is currently in normal sinus rhythm. Lung sounds are clear. His only complaint, is pain in the left leg and right arm. I did speak to Dr. Smalls about this patient. White count is 5.1, hemoglobin 11.4, macro 34.9, platelet count 124,000. Sodium 132, potassium 4.2, chlorides 102, CO2 24, BUN 19, creatinine 0.84. Glucose is 117. Progress note dated April 10, 2024. 63-year-old male seen today in room 260. The patient is doing reasonably well. The patient is on room air. He is getting saline at KVO. Heparin has been turned off. The patient is a candidate patient to be transferred to the 3 S. floor. The patient has no specific complaints today. Current laboratory data includes a white count 5.5, hemoglobin 9.7, hematocrit 28.7, and a platelet count of 88,000. PTT is 41.2. Sodium 133, potassium 3.9, chlorides 105, CO2 26, BUN 12, creatinine 0.84. Glucose is 139. Albumin is 3.0. Progress note dated April 11, 2024. 63-year-old male who was in the intensive care unit yesterday. He was trans ferred out to 379. The patient is 63. He was admitted with atrial fibrillation, with RVR. Currently he is resting comfortably. He is on room air. He is not receiving any IV fluids. White count is 5.4, hemoglobin 9.6, hematocrit 29.8, with a platelet count of 112,000. Sodium 133, potassium 4.5, chlorides 103, CO2 27, BUN 15, creatinine 1.12. Albumin is 3.2. Objective - Vital Signs Vital signs: Vital Signs Temp 98.0 F 04/11/24 11:17 Pulse 80 04/11/24 11:17 Resp 18 04/11/24 11:17 BP 112/61 04/11/24 11:17 Pulse Ox 98 04/11/24 11:17 FiO2 Intake & Output 04/10/24 04/11/24 04/11/24 18:59 06:59 18:59 Intake Total 1134.985 236 Output Total 700 1625 Balance 434.985 -1625 236 Weight 84 kg Intake: IV 160 Sodium Chloride 0.9% 1, 160 000 ml @ 20 mls/hr IV . Q24H [facility] Rx#:[id number] Intake, IV Titration 224.985 Amount Heparin Sod,Pork in 0.45% 124.985 NaCl 25,000 unit In 0.45 % NaCl 1 250ml.bag @ 12 UNITS/KG/HR 8.546 mls/hr IV .Q24H [facility] Rx#: [id number] Magnesium Sulfate-D5w Pmx 100 1 gm In Dextrose/Water 1 100ml.bag @ 100 mls/hr IVPB ONCE ONE Rx#: [id number] Oral 750 236 Output: Urine 700 1625 Other: Voiding Method Urinal Urinal Toilet Urinal # Bowel Movements 1 - Exam No acute distress, oriented 3. Currently on room air. HEENT examination is grossly unremarkable. Mucous membranes are moist. No oral lesions. Neck supple. Full range of motion. No adenopathy thyromegaly or neck vein distention. Cardiovascular examination reveals regular rhythm rate. S1-S2 normal. No S3 or S4. No discernible murmur noted. Lungs reveal clear breath sounds. Breath sounds are equal bilaterally. No adventitious lung sounds including wheezes rhonchi or crackles. Abdomen soft bowel sounds are heard. No masses or tenderness. Extremities are intact. No cyanosis clubbing or edema. Skin is without rash or lesion. Neurologic examination is brief but nonfocal. - Labs CBC & Chem 7: 04/11/24 05:59 04/11/24 05:59 Labs: Abnormal Lab Results - Last 24 Hours (Table) 04/09/24 04/10/24 04/10/24 Range/Units 05:33 16:34 20:14 RBC (4.30-5.90) m/uL Hgb (13.0-17.5) gm/dL Hct (39.0-53.0) % Plt Count (150-450) k/uL Sodium (137-145) mmol/L Glucose (74-99) mg/dL POC Glucose (mg/dL) 136 H 175 H (70-110) mg/dL Total Protein (6.3-8.2) g/dL Albumin (3.5-5.0) g/dL T-Suppressor Cells 880 H (190-832) cell/ul % CD4 [place] 21 L (35-66) % Absolute CD4 [place] 283 L (443-1471) cell/ul CD4/CD8 Ratio 0.3 L (1.0-3.7) % CD8 Suppressor 66 H (9-37) % 04/11/24 04/11/24 04/11/24 Range/Units 05:59 05:59 11:41 RBC 2.99 L (4.30-5.90) m/uL Hgb 9.6 L (13.0-17.5) gm/dL Hct 29.8 L (39.0-53.0) % Plt Count 112 L (150-450) k/uL Sodium 133 L (137-145) mmol/L Glucose 107 H (74-99) mg/dL POC Glucose (mg/dL) 114 H (70-110) mg/dL Total Protein 5.8 L (6.3-8.2) g/dL Albumin 3.2 L (3.5-5.0) g/dL T-Suppressor Cells (190-832) cell/ul % CD4 [place] (35-66) % Absolute CD4 [place] (443-1471) cell/ul CD4/CD8 Ratio (1.0-3.7) % CD8 Suppressor (9-37) % Assessment and Plan Assessment: Atrial fibrillation with rapid ventricular response. Acute dyspnea, secondary to above. Acute alcohol intoxication, serum alcohol level 416 on arrival. Dissecting aortic aneurysm, Type A, reportedly follows outpatient with cardiovascular surgery. History of valvular heart disease and mitral valve repair. History of atrial fibrillation. History of drug overdose and ventilator dependent respiratory failure. History of alcoholism. History of HIV, on HAART. History of avascular necrosis and status post left total hip arthroplasty 03/18/2024. History of asthma/COPD, stable. Plan: Plan dated April 09, 2024. The patient is seen today in the intensive care unit, room 260. He is on room air. He is receiving IV heparin, and esmolol 75 mcg/kg/min. The patient is in normal sinus rhythm. Lung sounds are clear. He complains only of pain in his left leg and right arm. Labs, x-rays, medications are reviewed. We will continue to follow the patient. Prognosis is guarded. Cardiothoracic surgery is awaiting paperwork from the [facility]. Plan dated April 10, 2024. The patient is doing well. He had an uneventful night. She is currently on room air. Heparin has been turned off. The patient could be transferred to the 3 S. floor. No additional recommendations are made. We will continue to follow make recommendations along the way. Prognosis is guarded. Labs, x-rays, and all medications have been reviewed. Plan dated April 11, 2024. The patient was transferred out of the ICU yesterday. The patient has been stable over the last 24 hours. The patient is not receiving any supplemental oxygen, or IV fluids. Labs, x-rays, and medications are reviewed. We will con tinue to follow. No additional recommendations are made. The patient should follow-up with the [facility], who apparently is monitoring his aortic dissection. Time with Patient: Less than 30
[2024-04-11 16:37] LABS: Glucose,Whole Blood 142 mg/dL (70-110)
--- NOTE | 2024-04-11 17:37 | P.PN ---
Subjective Progress Note Date: 04/11/24 Patient is a 63-year-old male with history of EtOH use (no history of delirium tremens or admission for ETOH intoxication. Last drink was 1 PM today), A-fib (on Eliquis), aortic dissection type a (managed by Dr. Beal since December 2023), and mitral valve replacement came in for a fall. He reports that he was on a trip [place] and had been drinking since Sunday and had multiple falls during that trip. However yesterday, he tried to walk upstairs but fell and hit his head with associated loss of consciousness which caused him to seek care. He also reports weakness of his legs and pain on his knees and hips. He denies nausea and vomiting, hematemesis, hematochezia, chest pain, shortness of breath, jaundice, tremors, changes in sensation, changes in vision, or facial asymmetry. In the emergency room, EKG showed A-fib with RVR with a rate of 167, QTc 387, no ST-T changes. CT head showed no acute intracranial process. Chest x-ray showed no acute cardiopulmonary process. Knee x-ray showed no acute fractures or process. Pelvic x-ray showed no acute fractures or process. Chest CT revealed Esteban type A aortic dissection arising from the proximal aortic arch. Abdomen CT showed aortic dissection extends into the abdominal aorta and terminates in the left common iliac and right common femoral arteries. Sodium 137 bicarb 15 glucose 179 lipase 310 TSH 0.3 Free T41.47 PTT 19 PT 10 INR 1. Urine tox negative. Serum alcohol 416. On admission patient is afebrile at 98.9 Fahrenheit tachycardic at 170 with a respiratory rate of 20 blood pressure normotensive at 105/85 oxygen saturation 96% at room air Progress note 04/11/2024 patient seen and examined at sitting upright in chair. Patient transferred out of ICU. No events overnight. He states he has continued pain in right arm and left hip but gradually improving. He denied chest pain, palpitations, shortness of breath and had no other complaints at this time. Patient states that he was seen most recently by vascular surgery in December at [facility]. Prior to that he was seen at the [facility] by CT surgery. Awaiting medical records from December visit to [facility], regarding dissection. Review of systems: Pertinent positives and negatives as discussed in HPI, a complete review of systems was performed and all other systems are negative. Physical examination: Vital signs reviewed General: Resting tremor. Non toxic, no distress, appears older stated age, normal weight Derm: no unusual rashes/lesions, warm Head: atraumatic, normocephalic, symmetric Eyes: EOMI, no lid lag, anicteric sclera, pupils equal round reactive to light ENT: Nose and ears atraumatic Neck: No cervical lymphadenopathy, trachea midline, supple Mouth: no lip lesion, mucus membranes moist Cardiovascular: S1S2 regular, moderate aortic regurgitation Lungs: CTA bilateral, no rhonchi, no rales, no accessory muscle use Abdominal: soft, no tenderness, no guarding Ext: muscle strength 5 out of 5 in upper extremities 5/5 in lower extremities grossly, lower extremity hip ROM limited by pain, no gross muscle atrophy, no contractures, positive dorsalis pedis pulse bilateral, no edema Neuro: CN II-XI grossly intact, no gross focal neuro deficits Psych: Alert, oriented, appropriate affect and mood Labs reviewed todayWBC 5.4, hemoglobin 9.6, platelets 112, sodium 133, potassium 4.5, bicarb 27, BUN 15, creatinine 1.12, glucose 107 Imaging reviewed todaynone Assessment/Plan: Patient is critically ill. Needs close monitoring. Prognosis guarded. #. Type A aortic dissection, appearing stable # systolic CHF, without exacerbation Patient with no consistent follow-up for aortic dissection, treated at [facility] and [facility] - Echocardiogram 35% ejection fraction, severe by atrial dilation, moderate to severe aortic regurgitation Maintain SBP between [id number] Vascular surgery following Pending records from [facility] and [facility] -Pulmonology note reviewed as well, outpatient follow-up with [facility] #. 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 EtOH intoxication Alcohol dependence with withdrawal Serum alcohol 416, lipase 310 -Continue with IVF NS 0.9% at 20 cc/h (judicious use of IVFs in setting of systolic CHF) -Continue with thiamine 100 mg p.o. daily -Continue with Zofran 4 mg IVP every 6 as needed for nausea and vomiting -Encourage oral hydration and feeding Monitor CMP -Continue with IV Ativan per CIWA protocol today, plan to discontinue tomorrow -Last drink was 4 days ago #euthyroid sick syndrome TSH 0.306, free T4 1.47, free T31.60 continue home levothyroxine 200 mcg #HIV CD4 count 283 No need for prophylactic antibiotics at this time Continue Biktarvy 50 200 25 mg, Prezcobix 801 50 mg #. Mechanical fall w/ loss of consciousness -CT head and chest, knee, and pelvic x-rays were unremarkable. Patient experienced loss of consciousness and complains of knee hip and head pain. -Pain control with morphine 4 mg ibuprofen SQ for as needed -PT consult for weakness #. Hyperglycemia No Hx of DM. -ISS sliding scale <70kg -POC glucose checks ACHS -A1c 5.1% #. Normocytic anemia due to ETOH intake - Initial hemoglobin 11.4 => 9.7 -Monitor with CBC Chronic conditions: HIV, asthma, aortic dissection, PTSD, GERD, hypertension, anxiety, depression, CHF with reduced ejection fraction (35% echo done August 2022) DVT prophylaxis: SCDs GI prophylaxis: Protonix 40 mg IV OD CODE STATUS: Full Discussed with: Patient Anticipated discharge place: Likely home, with close follow-up with [facility] I have seen and evaluated the patient today. Discussed with the resident and agree with the residents finding and plan as documented in the resident's note. Changes highlighted in blue font. Objective - Vital Signs Vital signs: Vital Signs Temp 98.2 F 04/11/24 15:37 Pulse 77 04/11/24 15:37 Resp 18 04/11/24 15:37 BP 117/68 04/11/24 15:37 Pulse Ox 99 04/11/24 15:37 FiO2 Intake & Output 04/10/24 04/11/24 04/11/24 18:59 06:59 18:59 Intake Total 1134.985 590 Output Total 700 1625 600 Balance 434.985 -1625 -10 Weight 84 kg Intake: IV 160 Sodium Chloride 0.9% 1, 160 000 ml @ 20 mls/hr IV . Q24H [facility] Rx#:[id number] Intake, IV Titration 224.985 Amount Heparin Sod,Pork in 0.45% 124.985 NaCl 25,000 unit In 0.45 % NaCl 1 250ml.bag @ 12 UNITS/KG/HR 8.546 mls/hr IV .Q24H [facility] Rx#: [id number] Magnesium Sulfate-D5w Pmx 100 1 gm In Dextrose/Water 1 100ml.bag @ 100 mls/hr IVPB ONCE ONE Rx#: [id number] Oral 750 590 Output: Urine 700 1625 600 Other: Voiding Method Urinal Urinal Toilet Urinal # Bowel Movements 1 1 - Labs CBC & Chem 7: 04/11/24 05:59 04/11/24 05:59 Labs: Abnormal Lab Results - Last 24 Hours (Table) 04/10/24 04/11/24 04/11/24 Range/Units 20:14 05:59 05:59 RBC 2.99 L (4.30-5.90) m/uL Hgb 9.6 L (13.0-17.5) gm/dL Hct 29.8 L (39.0-53.0) % Plt Count 112 L (150-450) k/uL Sodium 133 L (137-145) mmol/L Glucose 107 H (74-99) mg/dL POC Glucose (mg/dL) 175 H (70-110) mg/dL Total Protein 5.8 L (6.3-8.2) g/dL Albumin 3.2 L (3.5-5.0) g/dL 04/11/24 04/11/24 Range/Units 11:41 16:35 RBC (4.30-5.90) m/uL Hgb (13.0-17.5) gm/dL Hct (39.0-53.0) % Plt Count (150-450) k/uL Sodium (137-145) mmol/L Glucose (74-99) mg/dL POC Glucose (mg/dL) 114 H 142 H (70-110) mg/dL Total Protein (6.3-8.2) g/dL Albumin (3.5-5.0) g/dL
[2024-04-11 20:08] LABS: Glucose,Whole Blood 115 mg/dL (70-110)
[2024-04-11 23:58] VITALS: RESP 16
[2024-04-12 06:23] LABS: Glucose,Whole Blood 153 mg/dL (70-110)
[2024-04-12 07:38] LABS: HCT 30.7 % (39.0-53.0); Hypochromasia Slight; MCH 32.4 pg (25.0-35.0); MCHC 32.7 g/dL (31.0-37.0); MCV 99.3 fL (80.0-100.0); Mean Platelet Volume 9.6; Platelet Count 137 k/uL (150-450); RBC 3.09 m/uL (4.30-5.90); RDW 14.4 % (11.5-15.5); WBC 5.3 k/uL (3.8-10.6)
[2024-04-12 07:59] LABS: ALT 12 U/L (4-49); AST 20 U/L (17-59); African American GFR (CKD) 79 (>60 ml/min/1.73 sqM); Albumin 3.4 g/dL (3.5-5.0); Alkaline Phosphatase 90 U/L (38-126); Anion Gap 7 mmol/L; Blood Urea Nitrogen 19 mg/dL (9-20); Calcium 9.1 mg/dL (8.4-10.2); Carbon Dioxide 27 mmol/L (22-30); Chloride 101 mmol/L (98-107); Glucose 111 mg/dL (74-99); Non-African American GFR(CKD) 68 (>60 ml/min/1.73 sqM); Potassium 4.7 mmol/L (3.5-5.1); Sodium 135 mmol/L (137-145); Total Bilirubin 0.5 mg/dL (0.2-1.3); Total Protein 6.3 g/dL (6.3-8.2)
[2024-04-12 08:02] VITALS: BP 119/62; PULSE 77; TEMP 97.7
--- NOTE | 2024-04-12 11:59 | P.PN ---
Subjective Progress Note Date: 04/12/24 Principal diagnosis: Atrial fibrillation. Patient is a 63-year-old male with past medical history significant for alcoholism, atrial fibrillation, CVA/TIA, dissecting aortic aneurysm, mitral valve repair, cardiomyopathy, prior drug overdose, HIV, asthma/COPD, among other things. Of note, patiently worked up at outside hospital for CVA/TIA symptoms in November,. Found to have a large dissecting type a aortic aneurysm, he was initially transferred to [facility] and has been following with Dr. Beal. Patient also recently underwent left total hip arthroplasty in March,. I was contacted by [facility] emergency department physicians early this morning, they were concerned that the patient would be best monitored in the intensive care unit. Patient in atrial fibrillation with rapid ventricular response, which has been resistant to multiple antiarrhythmics. Also, has a large chronic dissecting proximal aortic aneurysm. He is acutely intoxicated. Patient went up north on Sunday and returned last night. He did not bring his medications with him. He also was drinking heavily. Drinking 1/5 a day. His alcohol level was greater than 400 on arrival. He fell multiple times, including down 1 flight of stairs. Approximately 4 steps. May have lost consciousness. Presented the emergency department yesterday evening. He was found to be in atrial fibrillation with rapid ventricular response. Cardiology did attempt Cardizem infusion, this induced some hypotension. Patient was switc hed to an amiodarone infusion and was bolused 150 mg over 10 minutes. Also, continued on the amiodarone protocol. A-fib RVR was resistant to antiarrhythmics. Patient has known history of A-fib. He does have a dissecting aortic aneurysm. This was redemonstrated on chest CTA done last night. There is a extensive dissecting aortic aneurysm of the proximal aortic arch. No evidence of extension into the super aortic vessels. Reportedly felt to be stable from previous exam. Otherwise, no acute pulmonary disease. CBC: WBC count 6.9, hemoglobin 11.8, hematocrit 35.1, platelets 218. CMP: Sodium 137, potassium 4.4, chloride 101, serum bicarb 15, BUN 31, creatinine 0.99, glucose 179. Lipase 310. Serum EtOH 416. Urine toxicology screen otherwise negative. Patient is currently being evaluated in the emergency department. He is alert and oriented, actually mentation is better than expected, considering his alcohol level. He remains in atrial fibrillation after the above-mentioned inte rventions. Cardiology is recommending cardioversion. Blood pressure currently 89/77 mmHg. Heart rate remains tachycardic in the 160s to 170s. Reports some substernal chest pain. He is nauseas. Appears mildly tachypneic. SpO2 99 %. On room air. Normal saline infusing at 75 mL/h. Patient is going to be given conscious sedation, and cardioversion will be performed. Patient will be transferred to the intensive care unit. Progress note dated April 09, 2024. The patient was seen in consultation yesterday. He is a 63-year-old male who is seen today in room 260. Currently, he is on room air. He is receiving IV heparin, and IV esmolol at 75 mcg/kg/min. The patient is currently in normal sinus rhythm. Lung sounds are clear. His only complaint, is pain in the left leg and right arm. I did speak to Dr. Smalls about this patient. White count is 5.1, hemoglobin 11.4, macro 34.9, platelet count 124,000. Sodium 132, potassium 4.2, chlorides 102, CO2 24, BUN 19, creatinine 0.84. Glucose is 117. Progress note dated April 10, 2024. 63-year-old male seen today in room 260. The patient is doing reasonably well. The patient is on room air. He is getting saline at KVO. Heparin has been turned off. The patient is a candidate patient to be transferred to the 3 S. floor. The patient has no specific complaints today. Current laboratory data includes a white count 5.5, hemoglobin 9.7, hematocrit 28.7, and a platelet count of 88,000. PTT is 41.2. Sodium 133, potassium 3.9, chlorides 105, CO2 26, BUN 12, creatinine 0.84. Glucose is 139. Albumin is 3.0. Progress note dated April 11, 2024. 63-year-old male who was in the intensive care unit yesterday. He was trans ferred out to 379. The patient is 63. He was admitted with atrial fibrillation, with RVR. Currently he is resting comfortably. He is on room air. He is not receiving any IV fluids. White count is 5.4, hemoglobin 9.6, hematocrit 29.8, with a platelet count of 112,000. Sodium 133, potassium 4.5, chlorides 103, CO2 27, BUN 15, creatinine 1.12. Albumin is 3.2. Progress note dated April 12, 2024. 63-year-old male who was in the intensive care unit, for a number of days. He is seen today in room 379. He is on room air. No IV fluids. The patient feels improved, but is confused as to what is going to happen next, as a relates to his dissecting aortic aneurysm. The patient should follow-up with vascular surgery, at a different institution, or at the [facility], which ap parently has been following him. The patient is on room air. He is not receiving any IV fluids. He has no specific complaints today. Objective - Vital Signs Vital signs: Vital Signs Temp 97.7 F 04/12/24 08:00 Pulse 77 04/12/24 08:00 Resp 16 04/12/24 08:00 BP 119/62 04/12/24 08:00 Pulse Ox 97 04/12/24 08:00 FiO2 Intake & Output 04/11/24 04/12/24 04/12/24 18:59 06:59 18:59 Intake Total 590 1080 250 Output Total 600 1050 Balance -10 30 250 Weight 81.5 kg Intake: Oral 590 1080 250 Output: Urine 600 1050 Other: Voiding Method Toilet Toilet Urinal Urinal # Bowel Movements 1 - Exam No acute distress, oriented 3. Currently on room air. HEENT examination is grossly unremarkable. Mucous membranes are moist. No oral lesions. Neck supple. Full range of motion. No adenopathy thyromegaly or neck vein distention. Cardiovascular examination reveals regular rhythm rate. S1-S2 normal. No S3 or S4. No discernible murmur noted. Lungs reveal clear breath sounds. Breath sounds are equal bilaterally. No adventitious lung sounds including wheezes rhonchi or crackles. Abdomen soft bowel sounds are heard. No masses or tenderness. Extremities are intact. No cyanosis clubbing or edema. Skin is without rash or lesion. Neurologic examination is brief but nonfocal. - Labs CBC & Chem 7: 04/12/24 06:58 04/12/24 06:58 Labs: Abnormal Lab Results - Last 24 Hours (Table) 04/11/24 04/11/24 04/12/24 Range/Units 16:35 19:52 06:06 RBC (4.30-5.90) m/uL Hgb (13.0-17.5) gm/dL Hct (39.0-53.0) % Plt Count (150-450) k/uL Sodium (137-145) mmol/L Glucose (74-99) mg/dL POC Glucose (mg/dL) 142 H 115 H 153 H (70-110) mg/dL Albumin (3.5-5.0) g/dL 04/12/24 04/12/24 Range/Units 06:58 06:58 RBC 3.09 L (4.30-5.90) m/uL Hgb 10.0 L (13.0-17.5) gm/dL Hct 30.7 L (39.0-53.0) % Plt Count 137 L (150-450) k/uL Sodium 135 L (137-145) mmol/L Glucose 111 H (74-99) mg/dL POC Glucose (mg/dL) (70-110) mg/dL Albumin 3.4 L (3.5-5.0) g/dL Assessment and Plan Assessment: Atrial fibrillation with rapid ventricular response. Acute dyspnea, secondary to above. Acute alcohol intoxication, serum alcohol level 416 on arrival. Dissecting aortic aneurysm, Type A, reportedly follows outpatient with cardiovascular surgery. History of valvular heart disease and mitral valve repair. History of atrial fibrillation. History of drug overdose and ventilator dependent respiratory failure. History of alcoholism. History of HIV, on HAART. History of avascular necrosis and status post left total hip arthroplasty 03/18/2024. History of asthma/COPD, stable. Plan: Plan dated April 09, 2024. The patient is seen today in the intensive care unit, room 260. He is on room air. He is receiving IV heparin, and esmolol 75 mcg/kg/min. The patient is in normal sinus rhythm. Lung sounds are clear. He complains only of pain in his left leg and right arm. Labs, x-rays, medications are reviewed. We will cont inue to follow the patient. Prognosis is guarded. Cardiothoracic surgery is awaiting paperwork from the [facility]. Plan dated April 10, 2024. The patient is doing well. He had an uneventful night. She is currently on room air. Heparin has been turned off. The patient could be transferred to the 3 S. floor. No additional recommendations are made. We will continue to follow make recommendations along the way. Prognosis is guarded. Labs, x-rays, and all medications have been reviewed. Plan dated April 11, 2024. The patient was transferred out of the ICU yesterday. The patient has been stable over the last 24 hours. The patient is not receiving any supplemental o xygen, or IV fluids. Labs, x-rays, and medications are reviewed. We will continue to follow. No additional recommendations are made. The patient should follow-up with the [facility], who apparently is monitoring his aortic dissection. Plan dated April 12, 2024. The patient is seen today in room 379. The patient is not receiving any supplemental oxygen, or IV fluids. Labs, x-rays, and all medications are reviewed. The patient remains a full code. The patient will follow-up with the [facility], as it relates to his aortic dissection. We will continue to follow if the patient does not get discharged. The patient denies any shortness of breath, cough, wheezing, chest tightness, or phlegm production. He also denies any chest pain or pressure. He is counseled about the importance of abstaining from alcohol. Time with Patient: Less than 30
--- NOTE | 2024-04-12 13:08 | P.DS ---
Providers Date of admission: 04/07/24 20:45 Expected date of discharge: 04/12/24 Attending physician: Ciera Sanchez MD Consults: 04/07/24 20:44 Consult Physician Urgent Consulting Provider: Colt Ferraro Consult Reason/Comments: A-fib with RVR Do you want consulting provider notified?: Yes 04/08/24 05:15 Consult Physician Routine Consulting Provider: Ned Walters Consult Reason/Comments: afib RVR / ETOH withdrawl Do you want consulting provider notified?: Already Contacted 04/08/24 07:44 Consult Physician Urgent Consulting Provider: Otto Smalls Consult Reason/Comments: aortic dissection Do you want consulting provider notified?: Yes Primary care physician: Girma Eric [facility] Course: Discharge diagnoses; #. Type A aortic dissection, appearing stable # systolic CHF, without exacerbation #. A-fib with RVR #Thrombocytopenia #. EtOH intoxication #Alcohol dependence with withdrawal #euthyroid sick syndrome #HIV #. Mechanical fall w/ loss of consciousness #. Hyperglycemia #. Normocytic anemia due to ETOH intake Hospital course; Patient is a 63-year-old male with history of EtOH use (no history of delirium tremens or admission for ETOH intoxication. Last drink was 1 PM today), A-fib (on Eliquis), aortic dissection type a (managed by Dr. Beal since December 2023), and mitral valve replacement came in for a fall. He reports that he was on a trip up [place] with his and had been drinking since Sunday and had multiple falls during that trip. However yesterday, he tried to walk upstairs but fell and hit his head with associated loss of consciousness which caused him to seek care. He also reports weakness of his legs and pain on his knees and hips. He denies nausea and vomiting, hematemesis, hematochezia, chest pain, shortness of breath, jaundice, tremors, changes in sensation, changes in vision, or facial asymmetry. In the emergency room, EKG showed A-fib with RVR with a rate of 167, QTc 387, no ST-T changes. CT head showed no acute intracranial process. Chest x-ray showed no acute cardiopulmonary process. Knee x-ray showed no acute fractures or process. Pelvic x-ray showed no acute fractures or process. Chest CT revealed [place] type A aortic dissection arising from the proximal aortic arch. Abdomen CT showed aortic dissection extends into the abdominal aorta and terminates in the left common iliac and right common femoral arteries. Sodium 137 bicarb 15 glucose 179 lipase 310 TSH 0.3 Free T41.47 PTT 19 PT 10 INR 1. Urine tox negative. Serum alcohol 416. On admission patient is afebrile at 98.9 Fahrenheit tachycardic at 170 with a respiratory rate of 20 blood pressure normotensive at 105/85 oxygen saturation 96% at room air During hospital stay patient was treated for alcohol intoxication dependence with withdrawal, mechanical fall with loss of consciousness A-fib with RVR and systolic CHF with type A aortic dissection. Patient was treated for alcohol withdrawal. For his mechanical fall a CT head and chest, knee, pelvic x-ray were unremarkable. He is status post a recent hip replacement. PT was consulted for ongoing weakness. He was initially found to have A-fib with RVR and underwent successful cardioversion on third attempt and started on appropriate therapy. During stay he also had stable appearing aortic dissection for which he was originally treated at the [facility] and subsequently discharged. He also was seen at [facility] by vascular surgery and was also discharged. Records were reviewed. He was also seen by vascular surgery and cardiothoracic surgery inpatient. Due to stable aortic dissection, and previously being seen at other facility, he was recommended to go back to [facility] as soon as possible for further follow-up. He is seen by Dr. Morales as an outpatient. It was also found that his CD4 count was 283. Patient is discharge to home with home health services in stable condition. New medication at discharge metoprolol tartrate 25 mg twice daily, amiodarone 400 mg twice daily, thiamine 100 mg daily, spironolactone was changed to 12.5 mg daily, and discontinued medications losartan. He has to follow-up with his PCP, his shape hand Dr. Morales, and the [facility] for treatment of his aortic dissection as soon as possible. Physical examination: Vital signs reviewed General: Resting tremor. Non toxic, no distress, appears older stated age, normal weight Derm: no unusual rashes/lesions, warm Head: atraumatic, normocephalic, symmetric Eyes: EOMI, no lid lag, anicteric sclera, pupils equal round reactive to light ENT: Nose and ears atraumatic Neck: No cervical lymphadenopathy, trachea midline, supple Mouth: no lip lesion, mucus membranes moist Cardiovascular: S1S2 regular, moderate aortic regurgitation Lungs: CTA bilateral, no rhonchi, no rales, no accessory muscle use Abdominal: soft, no tenderness, no guarding Ext: muscle strength 5 out of 5 in upper extremities 5/5 in lower extremities grossly, lower extremity hip ROM limited by pain, no gross muscle atrophy, no contractures, positive dorsalis pedis pulse bilateral, no edema Neuro: CN II-XI grossly intact, no gross focal neuro deficits Psych: Alert, oriented, appropriate affect and mood Dictation was produced using [employer] dictation software. please excuse any grammatical, word or spelling errors. A total of 36 minutes of time were spent preparing this complex discharge summary. Patient was discharged on 04/12/2024 at 1031. I have seen and evaluated the patient today. Discussed with the resident and agree with the residents finding and plan as documented in the resident's note. Changes highlighted in blue font. Patient Condition at Discharge: Stable Plan - Discharge Summary Discharge Rx Participant: Yes New Discharge Prescriptions: New Thiamine [Vitamin B-1] 100 mg PO DAILY #60 tab Amiodarone [Cordarone] 400 mg PO BID #60 tab Metoprolol Tartrate [Lopressor] 25 mg PO BID #60 tab Continue Ondansetron [Zofran ODT] 8 mg PO BID PRN PRN Reason: Nausea And Vomiting Darunavir/Cobicistat [Prezcobix 800 mg-150 mg Tablet] 1 tab PO DAILY Ipratropium-Albuterol Nebulize [Duoneb 0.5 mg-3 mg/3 ml Soln] 3 ml INHALATION RT-BID PRN PRN Reason: Shortness Of Breath Albuterol Sulfate [Albuterol Sulfate Hfa] 1 - 2 puff INHALATION RT-QID PRN PRN Reason: Shortness Of Breath Sacubitril/Valsartan [Entresto 24 mg-26 mg Tablet] 1 tab PO BID hydrOXYzine HCL 10 mg PO Q6H PRN PRN Reason: Itching Pantoprazole [Protonix] 40 mg PO DAILY Levothyroxine Sodium 200 mcg PO DAILY Colchicine 0.6 mg PO DIRECTED PRN PRN Reason: gout flare Gabapentin 600 mg PO TID Bumetanide [BUMEX] 1 mg PO DAILY PRN PRN Reason: weight gain Apixaban [Eliquis] 2.5 mg PO BID Bictegrav/Emtricit/Tenofov Ala [Biktarvy 50-200-25 mg Tablet] 1 tab PO DAILY Tamsulosin HCl [Flomax] 0.4 mg PO HS Empagliflozin [Jardiance] 10 mg PO DAILY Rosuvastatin Calcium 40 mg PO DAILY Fenofibrate Nanocrystallized [Fenofibrate] 48 mg PO DAILY oxyCODONE-APAP 10-325MG [Percocet 10-325 mg] 1 tab PO Q6HR PRN 3 Days #12 tab PRN Reason: Pain Bimatoprost [Lumigan 0.01% Ophth Soln] 1 drop BOTH EYES HS allopurinoL 100 mg PO DAILY Changed Spironolactone [Aldactone] 12.5 mg PO DAILY #30 tab Discontinued Metoprolol Succinate (ER) [Toprol Xl] 75 mg PO DAILY Losartan [Cozaar] 25 mg PO DAILY Discharge Medication List Ondansetron [Zofran ODT] 8 mg PO BID PRN 05/18/18 [History] Bictegrav/Emtricit/Tenofov Ala [Biktarvy 50-200-25 mg Tablet] 1 tab PO DAILY 09/07/21 [History] Darunavir/Cobicistat [Prezcobix 800 mg-150 mg Tablet] 1 tab PO DAILY 09/07/22 [History] Ipratropium-Albuterol Nebulize [Duoneb 0.5 mg-3 mg/3 ml Soln] 3 ml INHALATION RT-BID PRN 10/23/23 [History] Albuterol Sulfate [Albuterol Sulfate Hfa] 1 - 2 puff INHALATION RT-QID PRN 12/27/23 [History] Empagliflozin [Jardiance] 10 mg PO DAILY 12/27/23 [History] Sacubitril/Valsartan [Entresto 24 mg-26 mg Tablet] 1 tab PO BID 12/27/23 [History] Tamsulosin HCl [Flomax] 0.4 mg PO HS 12/27/23 [History] Fenofibrate Nanocrystallized [Fenofibrate] 48 mg PO DAILY 03/17/24 [History] Levothyroxine Sodium 200 mcg PO DAILY 03/17/24 [History] Pantoprazole [Protonix] 40 mg PO DAILY 03/17/24 [History] Rosuvastatin Calcium 40 mg PO DAILY 03/17/24 [History] hydrOXYzine HCL 10 mg PO Q6H PRN 03/17/24 [History] oxyCODONE-APAP 10-325MG [Percocet 10-325 mg] 1 tab PO Q6HR PRN 3 Days #12 tab 03/20/24 [Rx] Apixaban [Eliquis] 2.5 mg PO BID 04/03/24 [History] Bimatoprost [Lumigan 0.01% Ophth Soln] 1 drop BOTH EYES HS 04/03/24 [History] Bumetanide [BUMEX] 1 mg PO DAILY PRN 04/03/24 [History] Colchicine 0.6 mg PO DIRECTED PRN 04/03/24 [History] Gabapentin 600 mg PO TID 04/03/24 [History] allopurinoL 100 mg PO DAILY 04/03/24 [History] Amiodarone [Cordarone] 400 mg PO BID #60 tab 04/12/24 [Rx] Metoprolol Tartrate [Lopressor] 25 mg PO BID #60 tab 04/12/24 [Rx] Spironolactone [Aldactone] 12.5 mg PO DAILY #30 tab 04/12/24 [Rx] Thiamine [Vitamin B-1] 100 mg PO DAILY #60 tab 04/12/24 [Rx] Follow up Appointment(s)/Referral(s): Sergo Morales MD [STAFF PHYSICIAN] - 1 Week Girma Malone MD [Primary Care Provider] - 1-2 days Residential Home[facility]Health [NON-STAFF] - 1 Week Patient Instructions/Handouts: A-fib (Atrial Fibrillation) (DC), Abuse of Alcohol (DC), Alcohol Withdrawal (DC) Activity/Diet/Wound Care/Special Instructions: Please follow up with your PCP, Dr Morales Cardiology, and the [facility] for treatment of your Aortic Dissection as soon as possible. Discharge/Stand Alone Forms: AA Meetings [place], Outpatient Counseling, Inp Substance Abuse Facilities Discharge Disposition: HOME WITH HOME HEALTH SERVICES
== END 2024-04-12 11:04 | disposition home health service (06) | DRG 896 ==
LOC: EC 16:52 → 3SCARD 20:45 → 2SICU 04-08 04:19 → 3SCARD 04-10 15:42
PROVIDERS: ADMIT Internal Medicine; ATTEND Internal Medicine
DX: F10.229 Alcohol dependence with intoxication, unspecified (principal); I21.A1 Myocardial infarction type 2; I71.010 Dissection of ascending aorta; I50.22 Chronic systolic (congestive) heart failure; I42.9 Cardiomyopathy, unspecified; I48.0 Paroxysmal atrial fibrillation; F10.239 Alcohol dependence with withdrawal, unspecified; Y90.8 Blood alcohol level of 240 mg/100 ml or more; W10.9XXA Fall (on) (from) unspecified stairs and steps, initial encounter; E07.81 Sick-euthyroid syndrome; I25.10 Atherosclerotic heart disease of native coronary artery without angina pectoris; M1A.9XX0 Chronic gout, unspecified, without tophus (tophi); M79.7 Fibromyalgia; Z21 Asymptomatic human immunodeficiency virus [HIV] infection status; N40.0 Benign prostatic hyperplasia without lower urinary tract symptoms; R29.6 Repeated falls; E78.5 Hyperlipidemia, unspecified; G89.4 Chronic pain syndrome; I11.0 Hypertensive heart disease with heart failure; D64.9 Anemia, unspecified; D69.6 Thrombocytopenia, unspecified; E03.8 Other specified hypothyroidism; J44.89 Other specified chronic obstructive pulmonary disease; Z96.642 Presence of left artificial hip joint; Z86.73 Personal history of transient ischemic attack (TIA), and cerebral infarction without residual deficits; Z79.01 Long term (current) use of anticoagulants; Z79.84 Long term (current) use of oral hypoglycemic drugs; Z79.890 Hormone replacement therapy; Z79.899 Other long term (current) drug therapy; Z87.891 Personal history of nicotine dependence; Z95.2 Presence of prosthetic heart valve
CPT/HCPCS: 36415; 70450; 71045; 71275; 72125; 72170; 74177; 80053; 80306; 80320; 83036; 83690; 83735; 84439; 84443; 84481; 84484; 85025; 85027; 85610; 85730; 86022; 86360; 86850; 86900; 86901; 93005; 93306; 94640; 94760; 96361; 96365; 96366; 96368; 96372; 96375; 99291

== ENCOUNTER 2024-04-13 13:20 | Emergency (ER) | payer MEDICARE, OTHER ==
[2024-04-13 13:32] VITALS: TEMP 97.6
--- NOTE | 2024-04-13 14:00 | ED ---
General Adult HPI - General Chief complaint: Weakness Stated complaint: weakness Time Seen by Provider: 04/13/24 13:40 Source: EMS, RN notes reviewed Mode of arrival: EMS - History of Present Illness Initial comments: 63-year-old male with past medical history of EtOH use disorder, HIV, hypertension, A-fib on Eliquis, CHF with reduced ejection fraction, aortic dissection type a, and mitral valve replacement presenting to the ER for generalized pain. He was recently admitted to the hospital 1 week ago for multiple falls and alcohol intoxication. He was discharged yesterday but reports he continues to have generalized pain, however denies chest pain or shortness of breath. He also began drinking again this morning. Reports about 3 drinks. also present upon examination states that they are confused about patient's plan of care moving forward as they states they were told different care plans by multiple different doctors and case management. - Related Data Home Medications Medication Instructions Recorded Confirmed Ondansetron [Zofran ODT] 8 mg PO BID PRN 05/18/18 04/07/24 Bictegrav/Emtricit/Tenofov Ala 1 tab PO DAILY 09/07/21 04/07/24 [Biktarvy 50-200-25 mg Tablet] Darunavir/Cobicistat [Prezcobix 1 tab PO DAILY 09/07/22 04/07/24 800 mg-150 mg Tablet] Ipratropium-Albuterol Nebulize 3 ml INHALATION RT-BID PRN 10/23/23 04/07/24 [Duoneb 0.5 mg-3 mg/3 ml Soln] Albuterol Sulfate [Albuterol 1 - 2 puff INHALATION RT-QID PRN 12/27/23 04/07/24 Sulfate Hfa] Empagliflozin [Jardiance] 10 mg PO DAILY 12/27/23 04/07/24 Sacubitril/Valsartan [Entresto 24 1 tab PO BID 12/27/23 04/07/24 mg-26 mg Tablet] Tamsulosin HCl [Flomax] 0.4 mg PO HS 12/27/23 04/07/24 Fenofibrate Nanocrystallized 48 mg PO DAILY 03/17/24 04/07/24 [Fenofibrate] Levothyroxine Sodium 200 mcg PO DAILY 03/17/24 04/07/24 Pantoprazole [Protonix] 40 mg PO DAILY 03/17/24 04/07/24 Rosuvastatin Calcium 40 mg PO DAILY 03/17/24 04/07/24 hydrOXYzine HCL 10 mg PO Q6H PRN 03/17/24 04/07/24 Apixaban [Eliquis] 2.5 mg PO BID 04/03/24 04/07/24 Bimatoprost [Lumigan 0.01% Ophth 1 drop BOTH EYES HS 04/03/24 04/07/24 Soln] Bumetanide [BUMEX] 1 mg PO DAILY PRN 04/03/24 04/07/24 Colchicine 0.6 mg PO DIRECTED PRN 04/03/24 04/07/24 Gabapentin 600 mg PO TID 04/03/24 04/07/24 allopurinoL 100 mg PO DAILY 04/03/24 04/07/24 Previous Rx's Medication Instructions Recorded oxyCODONE-APAP 10-325MG [Percocet 1 tab PO Q6HR PRN 3 Days #12 tab 03/20/24 10-325 mg] Amiodarone [Cordarone] 400 mg PO BID #60 tab 04/12/24 Metoprolol Tartrate [Lopressor] 25 mg PO BID #60 tab 04/12/24 Spironolactone [Aldactone] 12.5 mg PO DAILY #30 tab 04/12/24 Thiamine [Vitamin B-1] 100 mg PO DAILY #60 tab 04/12/24 Allergies Allergy/AdvReac Type Severity Reaction Status Date / Time abacavir [From Ziagen] Allergy Anaphylaxis Verified 04/07/24 16:59 efavirenz [From Sustiva] Allergy Anaphylaxis Verified 04/07/24 16:59 levofloxacin Allergy Itching Verified 04/07/24 16:59 hydrocodone AdvReac Rapid Verified 04/07/24 16:59 [From Hysingla ER] Heart Rate morphine AdvReac Itching Verified 04/07/24 16:59 sulfamethoxazole AdvReac HIGH Verified 04/07/24 16:59 [From Bactrim] CREATININE LEVEL trimethoprim [From Bactrim] AdvReac HIGH Verified 04/07/24 16:59 CREATININE Review of Systems ROS Statement: Those systems with pertinent positive or pertinent negative responses have been documented in the HPI. ROS Other: All systems not noted in ROS Statement are negative. Past Medical History Past Medical History: Atrial Fibrillation, Asthma, Heart Failure, Fibromyalgia, GERD/Reflux, Hypertension, Prostate Disorder Additional Past Medical History / Comment(s): Mitral valve disease w/ MV repair at [facility] 2000, HIV positive, past HTN and recently low blood pressures, BPH, R ankle gout, chronic nausea, bilateral glaucoma, chronic pain syndrome, chronic low back and bilateral hip pain and occasional cervical pain, DDD, lumbar stenosis/spondylosis, abdominal hernia, previous history of drug overdose. PTSD History of Any Multi-Drug Resistant Organisms: None Reported Past Surgical History: Heart Catheterization, Hernia Repair Additional Past Surgical History / Comment(s): Mitral valve repair at [facility] (2000), Type A aortic disection repordedly treated conservatively by [facility], R inguinal hernia x2, L inguinal hernia, epidural injections to back, hip injections, RFAs, spinal cord stimulator trial-removed, Past Anesthesia/Blood Transfusion Reactions: No Reported Reaction Past Psychological History: Anxiety, Depression, PTSD Smoking Status: Former smoker Past Alcohol Use History: Abuse Past Drug Use History: Marijuana, Prescription Drug Abuse - Past Family History Father History Unknown: Yes Additional Family Medical History / Comment(s): Father was injured at work and of complication during his hospitalization. Mother Additional Family Medical History / Comment(s): Mother is from alcoholism. Brother(s) Additional Family Medical History / Comment(s): alcohol and HF General Exam General appearance: alert, in no apparent distress Head exam: Present: atraumatic, normocephalic, normal inspection Respiratory exam: Present: normal lung sounds bilaterally. Absent: respiratory distress, wheezes, rales, rhonchi, stridor Cardiovascular Exam: Present: regular rate, normal rhythm, normal heart sounds. Absent: systolic murmur, diastolic murmur, rubs, gallop, clicks Neurological exam: Present: alert, oriented X3 Psychiatric exam: Present: normal affect, normal mood Skin exam: Present: warm, dry, intact, normal color. Absent: rash Course Vital Signs 04/13/24 04/13/24 13:24 14:23 Temperature 97.6 F Pulse Rate 82 77 Respiratory 16 18 Rate Blood Pressure 102/87 112/71 O2 Sat by Pulse 98 99 Oximetry EKG Findings - EKG Results: EKG: interpreted by ERMD (EKG reveals sinus rhythm with left axis deviation. Ventricular rate 75 bpm, KS interval 195, QRS duration 110, QT/QTc 436/466) Medical Decision Making - Medical Decision Making Was pt. sent in by a medical professional or institution (BONNIE Rai, [employer] HELPER, urgent care, hospital, or long term...) When possible be specific @ -No Did you speak to anyone other than the patient for history (EMS, parent, family, police, friend...)? What history was obtained from this source @ - supplemented history Did you review nursing and triage notes (agree or disagree)? Why? @ -I reviewed and agree with nursing and triage notes Were old charts reviewed (outside hosp., previous admission, EMS record, old EKG, old radiological studies, urgent care reports/EKG's, long term records)? Report findings @ -No old charts were reviewed Differential Diagnosis (chest pain, altered mental status, abdominal pain women, abdominal pain men, vaginal bleeding, weakness, fever, dyspnea, syncope, headache, dizziness, GI bleed, back pain, seizure, CVA, palpatations, mental health, musculoskeletal)? @ -Alcohol intoxication, alcohol withdrawal EKG interpreted by me (3pts min.). @ -As above X-rays interpreted by me (1pt min.). @ -None done CT interpreted by me (1pt min.). @ -None done U/S interpreted by me (1pt. min.). @ -None done What testing was considered but not performed or refused? (CT, X-rays, U/S, labs)? Why? @ -None What meds were considered but not given or refused? Why? @ -None Did you discuss the management of the patient with other professionals (professionals i.e. BONNIE Rai, [employer] HELPER, lab, RT, psych nurse, social service director, rubber tubing backer, teacher, juvenile corrections officer, director of casework department)? Give summary @ -No Was smoking cessation discussed for >3mins.? @ -No Was critical care preformed (if so, how long)? @ -No Were there social determinants of health that impacted care today? How? (Homele ssness, low income, unemployed, alcoholism, drug addiction, transportation, low edu. Level, literacy, decrease access to med. care, detention, rehab)? @ -No Was there de-escalation of care discussed even if they declined (Discuss DNR or withdrawal of care, Hospice)? DNR status @ -No What co-morbidities impacted this encounter? (DM, HTN, Smoking, COPD, CAD, Cancer, CVA, ARF, Chemo, Hep., AIDS, mental health diagnosis, sleep apnea, morbid obesity)? @ -None Was patient admitted / discharged? Hospital course, mention meds given and route, prescriptions, significant lab abnormalities, going to OR and other pertinent info. @ -Patient left AGAINST MEDICAL ADVICE. This is a 63-year-old male presenting f or alcohol intoxication. Patient was recently discharged from the hospital yesterday after admission for alcohol intoxication and A-fib with RVR. Patient denies chest pain or shortness of breath. Patient is clearly intoxicated on examination, is present at bedside. No acute distress. Vital signs are within acceptable limits. EKG reveals normal sinus rhythm with left axis deviation. Laboratory studies remarkable for serum alcohol 224. I was notified by RN that patient left with AGAINST MEDICAL ADVICE. Case was discussed with ED attending Dr. Lane. Undiagnosed new problem with uncertain prognosis? @ -No Drug Therapy requiring intensive monitoring for toxicity (Heparin, Nitro, Insulin, Cardizem)? @ -No Were any procedures done? @ -No Diagnosis/symptom? @ -Alcohol intoxication Acute, or Chronic, or Acute on Chronic? @ -Acute Uncomplicated (without systemic symptoms) or Complicated (systemic symptoms)? @ -Uncomplicated Side effects of treatment? @ -No Exacerbation, Progression, or Severe Exacerbation? @ -No Poses a threat to life or bodily function? How? (Chest pain, USA, AL, pneumonia, PE, COPD, DKA, ARF, appy, cholecystitis, CVA, Diverticulitis, Homicidal, Suicidal, threat to staff... and all critical care pts) @ -Unknown - Lab Data Result diagrams: 04/13/24 14:10 04/13/24 14:10 Lab Results 04/13/24 04/13/24 Range/Units 14:10 14:10 WBC 5.7 (3.8-10.6) k/uL RBC 3.40 L (4.30-5.90) m/uL Hgb 11.2 L (13.0-17.5) gm/dL Hct 32.7 L (39.0-53.0) % MCV 96.2 (80.0-100.0) fL MCH 32.8 (25.0-35.0) pg MCHC 34.1 (31.0-37.0) g/dL RDW 14.6 (11.5-15.5) % Plt Count 171 (150-450) k/uL MPV 9.3 Neutrophils % (Manual) 66 % Lymphocytes % (Manual) 23 % Monocytes % (Manual) 8 % Eosinophils % (Manual) 3 % Neutrophils # (Manual) 3.76 (1.3-7.7) k/uL Lymphocytes # (Manual) 1.31 (1.0-4.8) k/uL Monocytes # (Manual) 0.46 (0-1.0) k/uL Eosinophils # (Manual) 0.17 (0-0.7) k/uL Nucleated RBCs 0 (0-0) /100 WBC Manual Slide Review Performed RBC Morphology Normal Sodium 137 (137-145) mmol/L Potassium 3.9 (3.5-5.1) mmol/L Chloride 105 (98-107) mmol/L Carbon Dioxide 22 (22-30) mmol/L Anion Gap 10 mmol/L BUN 18 (9-20) mg/dL Creatinine 0.88 (0.66-1.25) mg/dL Est GFR (CKD-EPI)AfAm >90 (>60 ml/min/1.73 sqM) Est GFR (CKD-EPI)NonAf >90 (>60 ml/min/1.73 sqM) Glucose 108 H (74-99) mg/dL Calcium 9.0 (8.4-10.2) mg/dL Total Bilirubin 0.6 (0.2-1.3) mg/dL AST 26 (17-59) U/L ALT 12 (4-49) U/L Alkaline Phosphatase 81 (38-126) U/L Total Protein 6.8 (6.3-8.2) g/dL Albumin 3.8 (3.5-5.0) g/dL Lipase 205 (23-300) U/L Serum Alcohol 224 H* mg/dL Disposition Clinical Impression: Alcohol intoxication Disposition: LEFT AGAINST MEDICAL ADVICE Condition: Undetermined Referrals: Girma Malone MD [Primary Care Provider] - 1-2 days Time of Disposition: 16:44
[2024-04-13] MEDS: ACETAMINOPHEN TAB 325 MG TAB PO STA (14:21)
[2024-04-13 14:25] VITALS: BP 112/71; PULSE 77; RESP 18
[2024-04-13 14:37] LABS: HCT 32.7 % (39.0-53.0); HGB 11.2 gm/dL (13.0-17.5); MCH 32.8 pg (25.0-35.0); MCHC 34.1 g/dL (31.0-37.0); MCV 96.2 fL (80.0-100.0); Mean Platelet Volume 9.3; Platelet Count 171 k/uL (150-450); RDW 14.6 % (11.5-15.5); WBC 5.7 k/uL (3.8-10.6)
[2024-04-13 14:47] LABS: ALT 12 U/L (4-49); AST 26 U/L (17-59); African American GFR (CKD) >90 (>60 ml/min/1.73 sqM); Albumin 3.8 g/dL (3.5-5.0); Alkaline Phosphatase 81 U/L (38-126); Anion Gap 10 mmol/L; Blood Urea Nitrogen 18 mg/dL (9-20); Carbon Dioxide 22 mmol/L (22-30); Chloride 105 mmol/L (98-107); Glucose 108 mg/dL (74-99); Lipase 205 U/L (23-300); Non-African American GFR(CKD) >90 (>60 ml/min/1.73 sqM); Potassium 3.9 mmol/L (3.5-5.1); Sodium 137 mmol/L (137-145); Total Bilirubin 0.6 mg/dL (0.2-1.3); Total Protein 6.8 g/dL (6.3-8.2)
[2024-04-13 14:55] LABS: Eosinophils # (M) 0.17 k/uL (0-0.7); Lymphocytes # (M) 1.31 k/uL (1.0-4.8); Monocytes # (M) 0.46 k/uL (0-1.0); Neutrophils # (M) 3.76 k/uL (1.3-7.7); Neutrophils % (M) 66 %; Nucleated Red Blood Cells 0 /100 WBC (0-0); RBC Morphology Normal; Total Cells Counted 100
[2024-04-13 14:57] LABS: Alcohol 224 mg/dL
[2024-04-13] MEDS: ONDANSETRON 4 MG/2 ML VIAL IVP STA (15:33)
== END 2024-04-13 15:38 | disposition left against medical advice (07) ==
LOC: EC 13:20
CPT/HCPCS: 36415; 80053; 80320; 83690; 85025; 93005; 99285

== ENCOUNTER 2024-04-14 19:12 | Observation (INO) | payer MEDICARE, OTHER ==
--- NOTE | 2024-04-14 20:02 | ED ---
General Adult HPI - General Chief complaint: Dizziness Stated complaint: Dizziness Time Seen by Provider: 04/14/24 19:28 Source: patient, family, RN notes reviewed Mode of arrival: wheelchair Limitations: no limitations - History of Present Illness Initial comments: 63-year-old male history of alcohol abuse presents emergency room with his for chief complaint of nausea, anxiety, and suicidal ideation. It is reported that over the past day patient has been expressing multiple times each hour that he wants to kill himself. Patient states that if he could he would either crash his car or overdose on medications. He denies previous history of suicidal attempts. Denies firearms in the house. Currently denies use of antidepressants or antianxiety medications. States that he last drank on 04/13 at 0800. He is currently feeling nauseous and very anxious. - Related Data Home Medications Medication Instructions Recorded Confirmed Ondansetron [Zofran ODT] 8 mg PO BID PRN 05/18/18 04/15/24 Bictegrav/Emtricit/Tenofov Ala 1 tab PO DAILY 09/07/21 04/15/24 [Biktarvy 50-200-25 mg Tablet] Darunavir/Cobicistat [Prezcobix 1 tab PO DAILY 09/07/22 04/15/24 800 mg-150 mg Tablet] Ipratropium-Albuterol Nebulize 3 ml INHALATION RT-BID PRN 10/23/23 04/15/24 [Duoneb 0.5 mg-3 mg/3 ml Soln] Albuterol Sulfate [Albuterol 1 - 2 puff INHALATION RT-QID PRN 12/27/23 04/15/24 Sulfate Hfa] Empagliflozin [Jardiance] 10 mg PO DAILY 12/27/23 04/15/24 Sacubitril/Valsartan [Entresto 24 1 tab PO BID 12/27/23 04/15/24 mg-26 mg Tablet] Tamsulosin HCl [Flomax] 0.4 mg PO HS 12/27/23 04/15/24 Fenofibrate Nanocrystallized 48 mg PO DAILY 03/17/24 04/15/24 [Fenofibrate] Levothyroxine Sodium 200 mcg PO DAILY 03/17/24 04/15/24 Pantoprazole [Protonix] 40 mg PO DAILY 03/17/24 04/15/24 Rosuvastatin Calcium 40 mg PO DAILY 03/17/24 04/15/24 hydrOXYzine HCL 10 mg PO Q6H PRN 03/17/24 04/15/24 Apixaban [Eliquis] 2.5 mg PO BID 04/03/24 04/15/24 Bimatoprost [Lumigan 0.01% Ophth 1 drop BOTH EYES HS 04/03/24 04/15/24 Soln] Bumetanide [BUMEX] 1 mg PO DAILY PRN 04/03/24 04/15/24 Colchicine 0.6 mg PO DIRECTED PRN 04/03/24 04/15/24 Gabapentin 600 mg PO TID 04/03/24 04/15/24 allopurinoL 100 mg PO DAILY 04/03/24 04/15/24 Previous Rx's Medication Instructions Recorded oxyCODONE-APAP 10-325MG [Percocet 1 tab PO Q6HR PRN 3 Days #12 tab 03/20/24 10-325 mg] Amiodarone [Cordarone] 400 mg PO BID #60 tab 04/12/24 Metoprolol Tartrate [Lopressor] 25 mg PO BID #60 tab 04/12/24 Spironolactone [Aldactone] 12.5 mg PO DAILY #30 tab 04/12/24 Thiamine [Vitamin B-1] 100 mg PO DAILY #60 tab 04/12/24 Allergies Allergy/AdvReac Type Severity Reaction Status Date / Time abacavir [From Ziagen] Allergy Anaphylaxis Verified 04/15/24 07:32 efavirenz [From Sustiva] Allergy Anaphylaxis Verified 04/15/24 07:32 levofloxacin Allergy Itching Verified 04/15/24 07:32 hydrocodone AdvReac Rapid Verified 04/15/24 07:32 [From [facility]] Heart Rate morphine AdvReac Itching Verified 04/15/24 07:32 sulfamethoxazole AdvReac HIGH Verified 04/15/24 07:32 [From Bactrim] CREATININE LEVEL trimethoprim [From Bactrim] AdvReac HIGH Verified 04/15/24 07:32 CREATININE Review of Systems ROS Statement: Those systems with pertinent positive or pertinent negative responses have been documented in the HPI. ROS Other: All systems not noted in ROS Statement are negative. Past Medical History Past Medical History: Atrial Fibrillation, Asthma, Heart Failure, Fibromyalgia, GERD/Reflux, Hypertension, Prostate Disorder Additional Past Medical History / Comment(s): Mitral valve disease w/ MV repair at [facility] 2000, HIV positive, past HTN and recently low blood pressures, BPH, R ankle gout, chronic nausea, bilateral glaucoma, chronic pain syndrome, chronic low back and bilateral hip pain and occasional cervical pain, DDD, lumbar stenosis/spondylosis, abdominal hernia, previous history of drug overdose. PTSD History of Any Multi-Drug Resistant Organisms: None Reported Past Surgical History: Heart Catheterization, Hernia Repair Additional Past Surgical History / Comment(s): Mitral valve repair at [facility] (2000), Type A aortic disection repordedly treated conservatively by [facility], R inguinal hernia x2, L inguinal hernia, epidural injections to back, hip injections, RFAs, spinal cord stimulator trial-removed, Past Anesthesia/Blood Transfusion Reactions: No Reported Reaction Past Psychological History: Anxiety, Depression, PTSD Smoking Status: Former smoker Past Alcohol Use History: Abuse Past Drug Use History: Marijuana, Prescription Drug Abuse - Past Family History Father History Unknown: Yes Additional Family Medical History / Comment(s): Father was injured at work and of complication during his hospitalization. Mother Additional Family Medical History / Comment(s): Mother is from alcoholism. Brother(s) Additional Family Medical History / Comment(s): alcohol and HF General Exam Limitations: no limitations General appearance: alert, in no apparent distress, anxious Eye exam: Present: normal appearance, PERRL, EOMI. Absent: scleral icterus, conjunctival injection, periorbital swelling Neck exam: Present: normal inspection. Absent: tenderness, meningismus, lymphadenopathy Respiratory exam: Present: normal lung sounds bilaterally. Absent: respiratory distress, wheezes, rales, rhonchi, stridor Cardiovascular Exam: Present: regular rate, normal rhythm, normal heart sounds. Absent: systolic murmur, diastolic murmur, rubs, gallop, clicks GI/Abdominal exam: Present: soft, normal bowel sounds. Absent: distended, tenderness, guarding, rebound, rigid Extremities exam: Present: normal inspection, full ROM, normal capillary refill. Absent: tenderness, pedal edema, joint swelling, calf tenderness Back exam: Present: normal inspection Psychiatric exam: Present: depressed, anxious, flat affect, suicidal ideation Skin exam: Present: warm, dry, intact, normal color. Absent: rash Course Vital Signs 04/14/24 04/14/24 04/14/24 19:17 20:40 21:35 Temperature 98.1 F Pulse Rate 113 H 109 H 108 H Respiratory 20 18 19 Rate Blood Pressure 131/66 136/77 156/89 O2 Sat by Pulse 99 96 98 Oximetry 04/14/24 04/15/24 04/15/24 23:34 00:21 01:40 Temperature Pulse Rate 125 H 120 H 123 H Respiratory 17 18 18 Rate Blood Pressure 133/74 147/82 147/92 O2 Sat by Pulse 96 98 97 Oximetry 04/15/24 04/15/24 04/15/24 02:26 04:50 09:06 Temperature 98.6 F Pulse Rate 105 H 98 95 Respiratory 16 18 18 Rate Blood Pressure 147/72 146/83 126/84 O2 Sat by Pulse 100 96 96 Oximetry 04/15/24 04/15/24 04/15/24 10:48 13:33 14:58 Temperature Pulse Rate 82 85 80 Respiratory 18 18 18 Rate Blood Pressure 136/73 143/66 106/83 O2 Sat by Pulse 98 98 97 Oximetry 04/15/24 04/15/24 15:02 17:16 Temperature 98.7 F Pulse Rate 76 83 Respiratory 18 18 Rate Blood Pressure 121/59 119/66 O2 Sat by Pulse 95 99 Oximetry Medical Decision Making - Medical Decision Making Was pt. sent in by a medical professional or institution (, PA, [facility] [employer], urgent care, hospital, or assisted...) When possible be specific @ -No Did you speak to anyone other than the patient for history (EMS, parent, family, police, friend...)? What history was obtained from this source @ -No Did you review nursing and triage notes (agree or disagree)? Why? @ -I reviewed and agree with nursing and triage notes Were old charts reviewed (outside hosp., previous admission, EMS record, old EKG, old radiological studies, urgent care reports/EKG's, assisted records)? Report findings @ -No old charts were reviewed Differential Diagnosis (chest pain, altered mental status, abdominal pain women, abdominal pain men, vaginal bleeding, weakness, fever, dyspnea, syncope, headache, dizziness, GI bleed, back pain, seizure, CVA, palpatations, mental health, musculoskeletal)? @ -Differential Mental Health Depression, anxiety, bipolar, psychosis, schizophrenia, borderline personality, situational depression, adjustment disorder, behavioral disorder, brain tumor, malingering, substance abuse, encephalopathy, medication reaction, dementia, hypothyroidism, degenerative neurologic disorder, lupus.... This is not meant to be all-inclusive list EKG interpreted by me (3pts min.). @ -None X-rays interpreted by me (1pt min.). @ -Chest x-ray reveals no acute cardiopulmonary process or disease. CT interpreted by me (1pt min.). @ -None done U/S interpreted by me (1pt. min.). @ -None done What testing was considered but not performed or refused? (CT, X-rays, U/S, labs)? Why? @ -None What meds were considered but not given or refused? Why? @ -None Did you discuss the management of the patient with other professionals (professionals i.e. DrVelma, PA, [facility] [employer]IA[employer], lab, RT, psych nurse, social science instructor, plant and instrument engineer, teacher, banking officer, ed case manager)? Give summary @ -i spoke with sound internal medicine physician, Dr. Bruno, in regard to the patient's presentation and is accepted for admission with EPS consult when patient is sober. Was smoking cessation discussed for >3mins.? @ -No Was critical care preformed (if so, how long)? @ -No Were there social determinants of health that impacted care today? How? (Homelessness, low income, unemployed, alcoholism, drug addiction, transportati on, low edu. Level, literacy, decrease access to med. care, custodial, rehab)? @ -No Was there de-escalation of care discussed even if they declined (Discuss DNR or withdrawal of care, Hospice)? DNR status @ -No What co-morbidities impacted this encounter? (DM, HTN, Smoking, COPD, CAD, Cancer, CVA, ARF, Chemo, Hep., AIDS, mental health diagnosis, sleep apnea, morbid obesity)? @ -None Was patient admitted / discharged? Hospital course, mention meds given and route, prescriptions, significant lab abnormalities, going to OR and other pertinent info. @ -Admitted. 63-year-old male presents with nausea, dizziness, vomiting. On my evaluation of the patient he is noted to be anxious and tremulous. Add itionally, patient's initial comments states that he is having thoughts of wanting to kill himself. States that he feels anxious as well and states that his last drink of alcohol was yesterday at 8:30 AM. Patient is provided with dose of Ativan and Zofran pending laboratory results. He is agree with this plan. Patient's alcohol level is 258 which correlates to a time till sober at 0545 on 04/15/24. Coagulation profile, CMP, troponin, urinalysis unremarkable UDA positive for benzo. patient is started on CIWA protocol and will be admitted to internal medicine for psychiatric evaluation. Undiagnosed new problem with uncertain prognosis? @ -No Drug Therapy requiring intensive monitoring for toxicity (Heparin, Nitro, Insulin, Cardizem)? @ -No Were any procedures done? @ -No Diagnosis/symptom? @ -alcohol abuse, alcohol intoxication, suicidal ideation Acute, or Chronic, or Acute on Chronic? @ -acute Uncomplicated (without systemic symptoms) or Complicated (systemic symptoms)? @ -complicated Side effects of treatment? @ -No Exacerbation, Progression, or Severe Exacerbation? @ -No Poses a threat to life or bodily function? How? (Chest pain, USA, IA, pneumonia, PE, COPD, DKA, ARF, appy, cholecystitis, CVA, Diverticulitis, Homicidal, Suicidal, threat to staff... and all critical care pts) @ -yes - Lab Data Result diagrams: 04/15/24 04:00 04/15/24 04:00 Lab Results 04/14/24 04/14/24 04/14/24 Range/Units 19:44 19:44 19:44 WBC 4.8 (3.8-10.6) k/uL RBC 3.88 L (4.30-5.90) m/uL Hgb 12.4 L (13.0-17.5) gm/dL Hct 36.9 L (39.0-53.0) % MCV 95.0 (80.0-100.0) fL MCH 32.0 (25.0-35.0) pg MCHC 33.7 (31.0-37.0) g/dL RDW 14.1 (11.5-15.5) % Plt Count 287 (150-450) k/uL MPV 7.8 Neutrophils % 45 % Lymphocytes % 41 % Monocytes % 8 % Eosinophils % 2 % Basophils % 1 % Neutrophils # 2.2 (1.3-7.7) k/uL Lymphocytes # 2.0 (1.0-4.8) k/uL Monocytes # 0.4 (0-1.0) k/uL Eosinophils # 0.1 (0-0.7) k/uL Basophils # 0.0 (0-0.2) k/uL PT 10.0 (10.0-12.5) sec INR 0.9 (<1.2) Sodium 140 (137-145) mmol/L Potassium 3.8 (3.5-5.1) mmol/L Chloride 105 (98-107) mmol/L Carbon Dioxide 19 L (22-30) mmol/L Anion Gap 16 mmol/L BUN 17 (9-20) mg/dL Creatinine 0.65 L (0.66-1.25) mg/dL Est GFR (CKD-EPI)AfAm >90 (>60 ml/min/1.73 sqM) Est GFR (CKD-EPI)NonAf >90 (>60 ml/min/1.73 sqM) Glucose 139 H (74-99) mg/dL Calcium 9.3 (8.4-10.2) mg/dL Magnesium 1.8 (1.6-2.3) mg/dL Total Bilirubin 0.4 (0.2-1.3) mg/dL AST 29 (17-59) U/L ALT 18 (4-49) U/L Alkaline Phosphatase 94 (38-126) U/L Troponin I (0.000-0.034) ng/mL Total Protein 7.7 (6.3-8.2) g/dL Albumin 4.5 (3.5-5.0) g/dL Urine Color Urine Appearance (Clear) Urine pH (5.0-8.0) Ur Specific [place] (1.001-1.035) Urine Protein (Negative) Urine Glucose (UA) (Negative) Urine Ketones (Negative) Urine Blood (Negative) Urine Nitrite (Negative) Urine Bilirubin (Negative) Urine Urobilinogen (<2.0) mg/dL Ur Leukocyte Esterase (Negative) Urine Opiates Screen (NotDetected) Ur Oxycodone Screen (NotDetected) Urine Methadone Screen (NotDetected) Ur Barbiturates Screen (NotDetected) U Tricyclic Antidepress (NotDetected) Ur Phencyclidine Scrn (NotDetected) Ur Amphetamines Screen (NotDetected) U Methamphetamines Scrn (NotDetected) U Benzodiazepines Scrn (NotDetected) Urine Cocaine Screen (NotDetected) U Marijuana (THC) Screen (NotDetected) Serum Alcohol 258 H* mg/dL 04/14/24 04/14/24 Range/Units 19:44 23:40 WBC (3.8-10.6) k/uL RBC (4.30-5.90) m/uL Hgb (13.0-17.5) gm/dL Hct (39.0-53.0) % MCV (80.0-100.0) fL MCH (25.0-35.0) pg MCHC (31.0-37.0) g/dL RDW (11.5-15.5) % Plt Count (150-450) k/uL MPV Neutrophils % % Lymphocytes % % Monocytes % % Eosinophils % % Basophils % % Neutrophils # (1.3-7.7) k/uL Lymphocytes # (1.0-4.8) k/uL Monocytes # (0-1.0) k/uL Eosinophils # (0-0.7) k/uL Basophils # (0-0.2) k/uL PT (10.0-12.5) sec INR (<1.2) Sodium (137-145) mmol/L Potassium (3.5-5.1) mmol/L Chloride (98-107) mmol/L Carbon Dioxide (22-30) mmol/L Anion Gap mmol/L BUN (9-20) mg/dL Creatinine (0.66-1.25) mg/dL Est GFR (CKD-EPI)AfAm (>60 ml/min/1.73 sqM) Est GFR (CKD-EPI)NonAf (>60 ml/min/1.73 sqM) Glucose (74-99) mg/dL Calcium (8.4-10.2) mg/dL Magnesium (1.6-2.3) mg/dL Total Bilirubin (0.2-1.3) mg/dL AST (17-59) U/L ALT (4-49) U/L Alkaline Phosphatase (38-126) U/L Troponin I 0.016 (0.000-0.034) ng/mL Total Protein (6.3-8.2) g/dL Albumin (3.5-5.0) g/dL Urine Color Light Yellow Urine Appearance Clear (Clear) Urine pH 5.5 (5.0-8.0) Ur Specific [place] 1.019 (1.001-1.035) Urine Protein Trace H (Negative) Urine Glucose (UA) 3+ H (Negative) Urine Ketones Negative (Negative) Urine Blood Negative (Negative) Urine Nitrite Negative (Negative) Urine Bilirubin Negative (Negative) Urine Urobilinogen <2.0 (<2.0) mg/dL Ur Leukocyte Esterase Negative (Negative) Urine Opiates Screen Not Detected (NotDetected) Ur Oxycodone Screen Not Detected (NotDetected) Urine Methadone Screen Not Detected (NotDetected) Ur Barbiturates Screen Not Detected (NotDetected) U Tricyclic Antidepress Not Detected (NotDetected) Ur Phencyclidine Scrn Not Detected (NotDetected) Ur Amphetamines Screen Not Detected (NotDetected) U Methamphetamines Scrn Not Detected (NotDetected) U Benzodiazepines Scrn Detected H (NotDetected) Urine Cocaine Screen Not Detected (NotDetected) U Marijuana (THC) Screen Not Detected (NotDetected) Serum Alcohol mg/dL Disposition Clinical Impression: Alcohol intoxication, Suicidal ideation Disposition: ADMITTED IP TO THIS [facility] Condition: Stable Decision to Admit Reason: Admit from EC Decision Date: 04/14/24 Decision Time: 23:48
[2024-04-14 20:15] LABS: ALT 18 U/L (4-49); AST 29 U/L (17-59); African American GFR (CKD) >90 (>60 ml/min/1.73 sqM); Albumin 4.5 g/dL (3.5-5.0); Alkaline Phosphatase 94 U/L (38-126); Anion Gap 16 mmol/L; Blood Urea Nitrogen 17 mg/dL (9-20); Calcium 9.3 mg/dL (8.4-10.2); Carbon Dioxide 19 mmol/L (22-30); Chloride 105 mmol/L (98-107); Glucose 139 mg/dL (74-99); Magnesium 1.8 mg/dL (1.6-2.3); Non-African American GFR(CKD) >90 (>60 ml/min/1.73 sqM); Potassium 3.8 mmol/L (3.5-5.1); Sodium 140 mmol/L (137-145); Total Bilirubin 0.4 mg/dL (0.2-1.3); Total Protein 7.7 g/dL (6.3-8.2)
[2024-04-14 20:19] LABS: INR 0.9 (<1.2)
[2024-04-14 20:28] LABS: Basophils % (A) 1 %; Eosinophils # (A) 0.1 k/uL (0-0.7); Eosinophils % (A) 2 %; HCT 36.9 % (39.0-53.0); HGB 12.4 gm/dL (13.0-17.5); Lymphocytes % (A) 41 %; MCHC 33.7 g/dL (31.0-37.0); Mean Platelet Volume 7.8; Monocytes # (A) 0.4 k/uL (0-1.0); Monocytes % (A) 8 %; Neutrophils # (A) 2.2 k/uL (1.3-7.7); Neutrophils % (A) 45 %; Platelet Count 287 k/uL (150-450); RBC 3.88 m/uL (4.30-5.90); RDW 14.1 % (11.5-15.5); WBC 4.8 k/uL (3.8-10.6)
[2024-04-14] MEDS: ONDANSETRON 4 MG/2 ML VIAL IVP STA (20:29)
[2024-04-14] MEDS: SODIUM CHLORIDE 0.9% 1,000 ML IV STA (20:29)
[2024-04-14 20:39] LABS: Alcohol 258 mg/dL
[2024-04-14] MEDS: LORazepam 2 MG/ML INJ IV STA ×2 (20:41→23:33)
[2024-04-14] MEDS: KETOROLAC 15 MG/ML 1 ML VIAL IVP STA (21:13)
[2024-04-14] MEDS ORDERED: LORazepam 1 MG TAB PO PRN (23:08)
[2024-04-14] MEDS ORDERED: NALOXONE 0.4 MG/ML 1 ML VIAL IV PRN (23:48)
[2024-04-14] MEDS ORDERED: ACETAMINOPHEN TAB 325 MG TAB PO PRN (23:48)
[2024-04-15 00:13] LABS: Appearance,Urine Clear (Clear); Bilirubin,Urine Negative (Negative); Blood,Urine Negative (Negative); Color,Urine Light Yellow; Glucose,Urine (UA) 3+ (Negative); Ketones,Urine Negative (Negative); Leukocyte Esterase,Urine Negative (Negative); Nitrite,Urine Negative (Negative); PH, Urine 5.5 (5.0-8.0); Protein,Urine Trace (Negative); Specific Gravity,Urine 1.019 (1.001-1.035); Urobilinogen,Urine <2.0 mg/dL (<2.0)
[2024-04-15 00:28] LABS: Amphetamine Screen,Urine Not Detected (NotDetected); Barbiturate Screen,Urine Not Detected (NotDetected); Benzodiazepines Screen,Urine Detected (NotDetected); Cocaine Screen,Urine Not Detected (NotDetected); Methadone Screen, Urine Not Detected (NotDetected); Opiate Screen,Urine Not Detected (NotDetected); Oxycodone Screen, Urine Not Detected (NotDetected); Phencyclidine Screen,Urine Not Detected (NotDetected); Tricyclic Antidepressant,Urine Not Detected (NotDetected); Urn Cannabinoid Scrn Not Detected (NotDetected)
--- NOTE | 2024-04-15 00:49 | P.HPIM ---
History of Present Illness H&P Date: 04/14/24 Chief Complaint: suicidal ideation Patient is a 63-year-old male with A-fib (on Eliquis), stable type a aortic dissection since 12/2023 managed by [facility], asthma, EtOH abuse (binge drinking, prior history of admissions for EtOH intoxication, negative for delirium tremens episodes), systolic CHF (ejection fraction 35 to 40% on echo 04/2024) and HIV who came in for nausea vomiting and suicidal ideation. Patient reported that he has been crying for 3 days and "patient wants all of this to stop" and has been drinking vodka with his last drink on 04/13/2024 at 8 AM. He has some associated vomiting that is nonprojectile and contains and undigested food, and tremors. He denies loss of consciousness, hematemesis, seizures, chest pain, shortness of breath, cough, abdominal pain, fevers, sweats, episodes of falling or focal weakness. ED documentation reviewed. Review of systems: Pertinent positives and negatives as discussed in HPI, a complete review of sys tems was performed and all other systems are negative. Social history: Tobacco: Denies tobacco use Alcohol: Current heavy EtOH intake. Usually drinks vodka and has a history of binge drinking. Recreational drugs: Occasional THC use Physical examination: Vital signs reviewed General: non toxic, no distress, appears at older than stated age Derm: no unusual rashes/lesions, warm Head: atraumatic, normocephalic, symmetric Eyes: EOMI, anicteric sclera, pupils equal round reactive to light ENT: Nose and ears atraumatic Neck: No cervical lymphadenopathy, trachea midline, supple Mouth: no lip lesion, mucus membranes moist Cardiovascular: S1S2 irregularly irregular, no murmur Lungs: CTA bilateral, no rhonchi, no rales, no accessory muscle use Abdominal: soft, nondistended, tender to deep palpation of the right upper quadrant, no guarding, hepatomegaly Ext: no gross muscle atrophy, no contractures, positive dorsalis pedis pulse bilateral, no edema Neuro: CN II-XI grossly intact, no gross focal neuro deficits, intermittent tremors dominant in the upper extremities Psych: Alert and oriented x 3, sad affect and mood Assessment/Plan: 63 year old male with alcohol abuse , presents with depression and suicidal ideation , I discussed the case with ed doc and I accepted the admission for al cohol intoxication , suicidal ideation for psych evaluation with anticipated length of stay > 2 midnights #. EtOH intoxication due to EtOH abuse #. Metabolic acidosis due to above #. Normocytic anemia due to above Serum alcohol 258. Patient's last EtOH drink was 04/01 3 at 8 AM -Fall and seizure precautions -Ativan per [facility] protocol -Thiamine 100 mg p.o. OD -Zofran 4 mg IVP every 8 hours as needed for nausea and vomiting -CBC, CMP at a.m. #. Suicidal ideation Patient has mentioned that he has been crying nonstop for 3 days and has had thoughts of suicide -Suicide precautions -Consult psychiatry #. Benzodiazepine use UDS positive for benzodiazepines. Patient has no benzodiazepines on home medication list. Patient stable at current -Monitor vital signs for now Chronic conditions: #. A-fib with RVR #. Systolic CHF with ejection fraction of 35% based on last echo #. Aortic dissection, [facility] #. HIV #. Asthma #. Chronic back pain -Resume home medications once reconciled DVT prophylaxis:on Eliquis for afib GI prophylaxis: Protonix 40mg PO OD The patient is admitted with an anticipated greater than 2 midnight stay for evaluation of EtOH intoxication and suicidal ideation Discussed with: Patient Anticipated discharge place: Pending clinical course Past Medical History Past Medical History: Atrial Fibrillation, Asthma, Heart Failure, Fibromyalgia, GERD/Reflux, Hypertension, Prostate Disorder Additional Past Medical History / Comment(s): Mitral valve disease w/ MV repair at [facility] 2000, HIV positive, past HTN and recently low blood pressures, BPH, R ankle gout, chronic nausea, bilateral glaucoma, chronic pain syndrome, chronic low back and bilateral hip pain and occasional cervical pain, DDD, lumbar stenosis/spondylosis, abdominal hernia, previous history of drug overdose. PTSD History of Any Multi-Drug Resistant Organisms: None Reported Past Surgical History: Heart Catheterization, Hernia Repair Additional Past Surgical History / Comment(s): Mitral valve repair at [facility] (2000), Type A aortic disection repordedly treated conservatively by [facility], R inguinal hernia x2, L inguinal hernia, epidural injections to back, hip injections, RFAs, spinal cord stimulator trial-removed, Past Anesthesia/Blood Transfusion Reactions: No Reported Reaction Past Psychological History: Anxiety, Depression, PTSD Smoking Status: Former smoker Past Alcohol Use History: Abuse Past Drug Use History: Marijuana, Prescription Drug Abuse - Past Family History Father History Unknown: Yes Additional Family Medical History / Comment(s): Father was injured at work and of complication during his hospitalization. Mother Additional Family Medical History / Comment(s): Mother is from alcoholism. Brother(s) Additional Family Medical History / Comment(s): alcohol and HF Medications and Allergies Home Medications Medication Instructions Recorded Confirmed Type Ondansetron [Zofran ODT] 8 mg PO BID PRN 05/18/18 04/07/24 History Bictegrav/Emtricit/Tenofov Ala 1 tab PO DAILY 09/07/21 04/07/24 History [Biktarvy 50-200-25 mg Tablet] Darunavir/Cobicistat [Prezcobix 1 tab PO DAILY 09/07/22 04/07/24 History 800 mg-150 mg Tablet] Ipratropium-Albuterol Nebulize 3 ml INHALATION RT-BID PRN 10/23/23 04/07/24 History [Duoneb 0.5 mg-3 mg/3 ml Soln] Albuterol Sulfate [Albuterol 1 - 2 puff INHALATION RT-QID PRN 12/27/23 04/07/24 History Sulfate Hfa] Empagliflozin [Jardiance] 10 mg PO DAILY 12/27/23 04/07/24 History Sacubitril/Valsartan [Entresto 24 1 tab PO BID 12/27/23 04/07/24 History mg-26 mg Tablet] Tamsulosin HCl [Flomax] 0.4 mg PO HS 12/27/23 04/07/24 History Fenofibrate Nanocrystallized 48 mg PO DAILY 03/17/24 04/07/24 History [Fenofibrate] Levothyroxine Sodium 200 mcg PO DAILY 03/17/24 04/07/24 History Pantoprazole [Protonix] 40 mg PO DAILY 03/17/24 04/07/24 History Rosuvastatin Calcium 40 mg PO DAILY 03/17/24 04/07/24 History hydrOXYzine HCL 10 mg PO Q6H PRN 03/17/24 04/07/24 History oxyCODONE-APAP 10-325MG [Percocet 1 tab PO Q6HR PRN 3 Days #12 tab 03/20/24 04/07/24 Rx 10-325 mg] Apixaban [Eliquis] 2.5 mg PO BID 04/03/24 04/07/24 History Bimatoprost [Lumigan 0.01% Ophth 1 drop BOTH EYES HS 04/03/24 04/07/24 History Soln] Bumetanide [BUMEX] 1 mg PO DAILY PRN 04/03/24 04/07/24 History Colchicine 0.6 mg PO DIRECTED PRN 04/03/24 04/07/24 History Gabapentin 600 mg PO TID 04/03/24 04/07/24 History allopurinoL 100 mg PO DAILY 04/03/24 04/07/24 History Amiodarone [Cordarone] 400 mg PO BID #60 tab 04/12/24 Rx Metoprolol Tartrate [Lopressor] 25 mg PO BID #60 tab 04/12/24 Rx Spironolactone [Aldactone] 12.5 mg PO DAILY #30 tab 04/12/24 04/07/24 Rx Thiamine [Vitamin B-1] 100 mg PO DAILY #60 tab 04/12/24 Rx Allergies Allergy/AdvReac Type Severity Reaction Status Date / Time abacavir [From Ziagen] Allergy Anaphylaxis Verified 04/14/24 19:19 efavirenz [From Sustiva] Allergy Anaphylaxis Verified 04/14/24 19:19 levofloxacin Allergy Itching Verified 04/14/24 19:19 hydrocodone AdvReac Rapid Verified 04/14/24 19:19 [From [facility]] Heart Rate morphine AdvReac Itching Verified 04/14/24 19:19 sulfamethoxazole AdvReac HIGH Verified 04/14/24 19:19 [From Bactrim] CREATININE LEVEL trimethoprim [From Bactrim] AdvReac HIGH Verified 04/14/24 19:19 CREATININE Physical Exam Vitals: Vital Signs Temp Pulse Resp BP Pulse Ox 04/14/24 23:34 125 H 17 133/74 96 04/14/24 21:35 108 H 19 156/89 98 04/14/24 20:40 109 H 18 136/77 96 04/14/24 19:17 98.1 F 113 H 20 131/66 99 Intake and Output 04/14/24 04/14/24 04/15/24 14:59 22:59 06:59 Other: Weight 78.925 kg Results CBC & Chem 7: 04/14/24 19:44 04/14/24 19:44 Labs: Abnormal Lab Results - Last 24 Hours (Table) 04/14/24 04/14/24 04/14/24 Range/Units 19:44 19:44 23:40 RBC 3.88 L (4.30-5.90) m/uL Hgb 12.4 L (13.0-17.5) gm/dL Hct 36.9 L (39.0-53.0) % Carbon Dioxide 19 L (22-30) mmol/L Creatinine 0.65 L (0.66-1.25) mg/dL Glucose 139 H (74-99) mg/dL Urine Protein Trace H (Negative) Urine Glucose (UA) 3+ H (Negative) Serum Alcohol 258 H* mg/dL Assessment and Plan Assessment: I have seen and evaluated the patient today. I Discussed the case with the resident and agree with the resident's findings I edited the assessment and plan as necessary as documented in the resident's note.
[2024-04-15] MEDS ORDERED: IPRATROPIUM-ALBUTEROL 3 ML NEB INHALATION PRN (01:19)
[2024-04-15] MEDS: SODIUM CHLORIDE 0.9% 1,000 ML IV SCH (01:36)
[2024-04-15] MEDS: ONDANSETRON 4 MG/2 ML VIAL IVP PRN (01:37)
[2024-04-15] MEDS: AMIODARONE 200 MG TAB PO SCH (01:39)
[2024-04-15] MEDS: METOPROLOL TARTRATE 25 MG TAB PO SCH (01:39)
[2024-04-15 04:43] LABS: HCT 34.2 % (39.0-53.0); HGB 11.1 gm/dL (13.0-17.5); MCH 31.5 pg (25.0-35.0); MCHC 32.5 g/dL (31.0-37.0); MCV 96.8 fL (80.0-100.0); Mean Platelet Volume 7.8; Platelet Count 251 k/uL (150-450); RBC 3.54 m/uL (4.30-5.90); RDW 14.4 % (11.5-15.5); WBC 4.5 k/uL (3.8-10.6)
[2024-04-15] MEDS: METOCLOPRAMIDE 5 MG/ML 2 ML VIAL IVP STA (05:00)
[2024-04-15 05:02] LABS: ALT 15 U/L (4-49); AST 27 U/L (17-59); African American GFR (CKD) >90 (>60 ml/min/1.73 sqM); Albumin 3.8 g/dL (3.5-5.0); Alkaline Phosphatase 99 U/L (38-126); Anion Gap 10 mmol/L; Blood Urea Nitrogen 23 mg/dL (9-20); Calcium 8.7 mg/dL (8.4-10.2); Carbon Dioxide 24 mmol/L (22-30); Chloride 106 mmol/L (98-107); Glucose 119 mg/dL (74-99); Non-African American GFR(CKD) >90 (>60 ml/min/1.73 sqM); Potassium 3.8 mmol/L (3.5-5.1); Sodium 140 mmol/L (137-145); Total Bilirubin 0.4 mg/dL (0.2-1.3); Total Protein 6.8 g/dL (6.3-8.2)
[2024-04-15] MEDS: LORazepam 0.5 MG TAB PO PRN (05:02)
[2024-04-15 05:19] LABS: Band Neutrophils % 2 %; Eosinophils # (M) 0.14 k/uL (0-0.7); Lymphocytes # (M) 1.35 k/uL (1.0-4.8); Neutrophils % (M) 54 %; Nucleated Red Blood Cells 0 /100 WBC (0-0); Total Cells Counted 100
--- NOTE | 2024-04-15 05:50 | XR ---
EXAMINATION TYPE: XR chest 2V DATE OF EXAM: 04/14/2024 8:07 PM CLINICAL INDICATION:Male, 63 years old with history of Dizziness; [facility] COMPARISON: 04/07/2024 TECHNIQUE: XR chest 2V. Frontal and lateral views of the chest.. FINDINGS: Cardiomediastinal silhouette is stable. Mildly tortuous aorta. Heart size is normal. There are several sternotomy wires redemonstrated. Lungs and pleural spaces are essentially unchanged. No focal consolidation, sizable pleural effusion, or visible pneumothorax. Bones and soft tissues appear stable. Nonacute right rib deformities. IMPRESSION: No acute cardiopulmonary abnormality. [facility], , 04/15/2024 5:47 AM
[2024-04-15] MEDS: LEVOTHYROXINE 100 MCG TAB PO SCH (06:27)
[2024-04-15] MEDS: PANTOPRAZOLE 40 MG TABLET PO SCH (08:59)
[2024-04-15] MEDS: SACUBITRIL/VALSARTAN 24 MG-26 MG TABLET PO SCH (09:09)
[2024-04-15] MEDS: APIXABAN 2.5 MG TABLET PO SCH (09:10)
[2024-04-15] MEDS: ATORVASTATIN 80 MG TAB PO SCH (09:10)
[2024-04-15] MEDS: DAPAGLIFLOZIN PROPANEDIOL 5 MG TABLET PO SCH (09:11)
[2024-04-15] MEDS: THIAMINE 100 MG TAB PO SCH (09:11)
[2024-04-15] MEDS: SPIRONOLACTONE 25 MG TAB PO SCH (09:11)
[2024-04-15] MEDS: NON FORMULARY DRUG (Bictegrav/Emtricit/Tenofov Ala [Biktarvy 50-200-25 Mg Tablet] 1 EACH T PO SCH (09:15)
[2024-04-15] MEDS: LORazepam 1 MG TAB PO PRN ×2 (11:41→20:20)
--- NOTE | 2024-04-15 12:54 | P.PN ---
Subjective Progress Note Date: 04/15/24 Hospital Course: 63-year-old male with A-fib (on Eliquis), stable type a aortic dissection since 12/2023, asthma, EtOH abuse (binge drinking, prior history of admissions for EtOH intoxication, negative for delirium tremens episodes), systolic CHF (ejection fraction 35 to 40% on echo 04/2024) and HIV who came in for nausea vomiting and suicidal ideation. Patient was recently admitted for alcohol intoxication, fall, A-fib RVR, aortic dissection. He was discharged with close follow-up with [facility]. However patient started drinking as soon as he got home. On arrival, patient was tachycardic, rest of the vital signs within normal limits. Laboratory workup unremarkable except for serum alcohol of 258, positive benzodiazepine in the urinary toxicology. Patient admitted for acute alcohol intoxication, psychiatry consulted for suicidal ideations. Subjective: Patient seen and examined at bedside. No acute events overnight. Pertinent positives and negatives as discussed above, a complete review of systems was performed and all other systems are negative. Vitals Signs Reviewed. General: [nontoxic], [no distress], [appears at stated age] Derm: [warm], [dry] Head: [atraumatic], [normocephalic], [symmetric] Eyes: [EOMI], [no lid lag], [anicteric sclera] Mouth: [no lip lesion], [mucus membranes moist] Cardiovascular: [S1S2 reg], [systolic murmur] Lungs: [CTA bilateral], [no rhonchi, no rales] , [no accessory muscle use] Abdominal: [soft], [ nontender to palpation], [no guarding], [no appreciable organomegaly] Ext: [no gross muscle atrophy], [no edema], [no contractures] Neuro: [ CN II-XI grossly intact], [no focal neuro deficits] Psych: [Alert], [oriented], [appropriate affect] Data Reviewed Today: Pertinent Labs: Hemoglobin 11.1, creatinine 0.8 Imaging: No new imaging Assessment and Plan: [Active:] EtOH intoxication due to EtOH abuse Alcohol dependence, impending alcohol withdrawal Metabolic acidosis due to above, resolved Normocytic anemia due to above, no active bleeding -Fall and seizure precautions -Ativan per [facility] protocol, monitor for sedation -Thiamine 100 mg p.o. daily -Zofran 4 mg IVP every 8 hours as needed for nausea and vomiting -Discontinue IV fluids -Restart home gabapentin 600 p.o. 3 times daily Suicidal ideation -Suicide precautions -Consult psychiatry, pending recommendations Benzodiazepine use UDS positive for benzodiazepines. Patient has no benzodiazepines on home medication list. Patient stable at current -Monitor vital signs for now Chronic conditions: A-fib with RVR, now rate controlled Systolic CHF with ejection fraction of 35% based on last echo-hold home Bumex Aortic dissection, stable HIV Asthma Chronic back pain-continue home Percocet, monitor for sedation -Patient needs close follow-up with [facility] once discharged DVT ppx: Eliquis Code status: Full code Anticipated discharge place: Pending clinical course Anticipated discharge time: Pending clinical course Objective - Vital Signs Vital signs: Vital Signs Temp 98.6 F 04/15/24 09:06 Pulse 82 04/15/24 10:48 Resp 18 04/15/24 10:48 BP 136/73 04/15/24 10:48 Pulse Ox 98 04/15/24 10:48 FiO2 Intake & Output 04/14/24 04/15/24 04/15/24 18:59 06:59 18:59 Weight 78.925 kg - Labs CBC & Chem 7: 04/15/24 04:00 04/15/24 04:00 Labs: Abnormal Lab Results - Last 24 Hours (Table) 04/14/24 04/14/24 04/14/24 Range/Units 19:44 19:44 23:40 RBC 3.88 L (4.30-5.90) m/uL Hgb 12.4 L (13.0-17.5) gm/dL Hct 36.9 L (39.0-53.0) % Carbon Dioxide 19 L (22-30) mmol/L BUN (9-20) mg/dL Creatinine 0.65 L (0.66-1.25) mg/dL Glucose 139 H (74-99) mg/dL Urine Protein Trace H (Negative) Urine Glucose (UA) 3+ H (Negative) U Benzodiazepines Scrn Detected H (NotDetected) Serum Alcohol 258 H* mg/dL 04/15/24 04/15/24 Range/Units 04:00 04:00 RBC 3.54 L (4.30-5.90) m/uL Hgb 11.1 L (13.0-17.5) gm/dL Hct 34.2 L (39.0-53.0) % Carbon Dioxide (22-30) mmol/L BUN 23 H (9-20) mg/dL Creatinine (0.66-1.25) mg/dL Glucose 119 H (74-99) mg/dL Urine Protein (Negative) Urine Glucose (UA) (Negative) U Benzodiazepines Scrn (NotDetected) Serum Alcohol mg/dL
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
[2024-04-15] MEDS: GABAPENTIN 300 MG CAP PO SCH (15:24)
[2024-04-15] MEDS: CYANOCOBALAMIN 1,000 MCG/ML 1 ML VIAL IM ONE (15:37)
[2024-04-15] MEDS: TAMSULOSIN 0.4 MG CAP.ER.24H PO SCH (20:21)
[2024-04-15] MEDS ORDERED: LORazepam 2 MG/ML INJ IV PRN (22:59)
[2024-04-15] MEDS: oxyCODONE-APAP 10-325MG 1 EACH TAB PO PRN (23:58)
[2024-04-15] MEDS: chlordiazePOXIDE 25 MG CAP PO STA (23:59)
[2024-04-16] MEDS: LORazepam 2 MG/ML INJ IV PRN ×2 (02:12→08:42)
[2024-04-16 08:15] VITALS: BP 126/66; PULSE 78; RESP 15; TEMP 98.5
[2024-04-16] MEDS: allopurinoL 100 MG TAB PO SCH (08:40)
[2024-04-16] MEDS ORDERED: LORazepam 1 MG TAB PO PRN (08:41)
[2024-04-16] MEDS: FENOFIBRATE 54 MG TAB PO SCH (08:42)
[2024-04-16] MEDS: [UNRECOGNIZED DRUG - OTHER] PO SCH (08:57)
[2024-04-16] MEDS: DARUNAVIR PO SCH (08:57)
[2024-04-16] MEDS: COBICISTAT PO SCH (08:57)
--- NOTE | 2024-04-16 11:36 | P.DS ---
Providers Date of admission: 04/14/24 23:49 Expected date of discharge: 04/16/24 Attending physician: Abisai Bruno MD Consults: 04/15/24 01:17 Consult Physician Urgent Consulting Provider: Levy Peña Consult Reason/Comments: suicidal ideation, substance abuse Do you want consulting provider notified?: Yes Primary care physician: Juan A Malone Hospital Course: Discharge Diagnosis: EtOH intoxication due to EtOH abuse Alcohol dependence, impending alcohol withdrawal Metabolic acidosis due to above Normocytic anemia due to above, no active bleeding Suicidal ideation Benzodiazepine use A-fib rate controlled Systolic CHF with ejection fraction of 35% Aortic dissection, stable HIV Asthma Chronic back pain Hospital Course: 63-year-old male with A-fib (on Eliquis), stable type a aortic dissection since 12/2023, asthma, EtOH abuse (binge drinking, prior history of admissions for EtOH intoxication, negative for delirium tremens episodes), systolic CHF (ejection fraction 35 to 40% on echo 04/2024) and HIV who came in for nausea vomiting and suicidal ideation. Patient was recently admitted for alcohol intoxication, fall, A-fib RVR, aortic dissection. He was discharged with close follow-up with [facility]. However patient started drinking as soon as he got home. On arrival, patient was tachycardic, rest of the vital signs within normal limits. Laboratory workup unremarkable except for serum alcohol of 258, positive benzodiazepine in the urinary toxicology. Patient admitted for acute alcohol intoxication, psychiatry consulted for suicidal ideations. Patient was observed for alcohol intoxication. No signs of severe withdrawal. Remains normotensive, no tachycardia. Has an extensor tremor which is not related to alcohol withdrawal. Patient was also evaluated by psychiatry, does not need inpatient psychiatry. Patient was given instructions on what to do if he is going through severe withdrawals, and when to seek medical attention. He was also recommended to see cardiothoracic surgery team at [facility] as soon as possible. Patient seen and examined at bedside. Vital signs reviewed and stable. General: Nontoxic, no distress, appears at stated age Derm: Warm, dry Head: Atraumatic, normocephalic, symmetric Eyes: EOMI, no lid lag, anicteric sclera Mouth: No lip lesion, mucus membranes moist Cardiovascular: S1S2 reg, systolic murmur Lungs: CTA bilateral, no rhonchi, no rales, no accessory muscle use Abdominal: Soft, nontender to palpation, no guarding, no appreciable organomegaly Ext: No gross muscle atrophy, no edema, no contractures Neuro: CN II-XI grossly intact, no focal neuro deficits Psych: Alert, oriented, appropriate affect A total of 36 minutes of time were spent preparing this complex discharge summary. Patient was discharged on 04/16/2024 at 1030. Patient Condition at Discharge: Stable Plan - Discharge Summary Discharge Rx Participant: No New Discharge Prescriptions: Continue Ondansetron [Zofran ODT] 8 mg PO BID PRN PRN Reason: Nausea And Vomiting Darunavir/Cobicistat [Prezcobix 800 mg-150 mg Tablet] 1 tab PO DAILY Ipratropium-Albuterol Nebulize [Duoneb 0.5 mg-3 mg/3 ml Soln] 3 ml INHALATION RT-BID PRN PRN Reason: Shortness Of Breath Albuterol Sulfate [Albuterol Sulfate Hfa] 1 - 2 puff INHALATION RT-QID PRN PRN Reason: Shortness Of Breath Sacubitril/Valsartan [Entresto 24 mg-26 mg Tablet] 1 tab PO BID hydrOXYzine HCL 10 mg PO Q6H PRN PRN Reason: Itching Pantoprazole [Protonix] 40 mg PO DAILY Levothyroxine Sodium 200 mcg PO DAILY Colchicine 0.6 mg PO DIRECTED PRN PRN Reason: gout flare Gabapentin 600 mg PO TID Bumetanide [BUMEX] 1 mg PO DAILY PRN PRN Reason: weight gain Apixaban [Eliquis] 2.5 mg PO BID Thiamine [Vitamin B-1] 100 mg PO DAILY #60 tab Bictegrav/Emtricit/Tenofov Ala [Biktarvy 50-200-25 mg Tablet] 1 tab PO DAILY Tamsulosin HCl [Flomax] 0.4 mg PO HS Empagliflozin [Jardiance] 10 mg PO DAILY Rosuvastatin Calcium 40 mg PO DAILY Fenofibrate Nanocrystallized [Fenofibrate] 48 mg PO DAILY oxyCODONE-APAP 10-325MG [Percocet 10-325 mg] 1 tab PO Q6HR PRN 3 Days #12 tab PRN Reason: Pain Bimatoprost [Lumigan 0.01% Ophth Soln] 1 drop BOTH EYES HS allopurinoL 100 mg PO DAILY Amiodarone [Cordarone] 400 mg PO BID #60 tab Metoprolol Tartrate [Lopressor] 25 mg PO BID #60 tab Spironolactone [Aldactone] 12.5 mg PO DAILY #30 tab Discharge Medication List Ondansetron [Zofran ODT] 8 mg PO BID PRN 05/18/18 [History] Bictegrav/Emtricit/Tenofov Ala [Biktarvy 50-200-25 mg Tablet] 1 tab PO DAILY 09/07/21 [History] Darunavir/Cobicistat [Prezcobix 800 mg-150 mg Tablet] 1 tab PO DAILY 09/07/22 [History] Ipratropium-Albuterol Nebulize [Duoneb 0.5 mg-3 mg/3 ml Soln] 3 ml INHALATION RT-BID PRN 10/23/23 [History] Albuterol Sulfate [Albuterol Sulfate Hfa] 1 - 2 puff INHALATION RT-QID PRN 12/27/23 [History] Empagliflozin [Jardiance] 10 mg PO DAILY 12/27/23 [History] Sacubitril/Valsartan [Entresto 24 mg-26 mg Tablet] 1 tab PO BID 12/27/23 [Histor y] Tamsulosin HCl [Flomax] 0.4 mg PO HS 12/27/23 [History] Fenofibrate Nanocrystallized [Fenofibrate] 48 mg PO DAILY 03/17/24 [History] Levothyroxine Sodium 200 mcg PO DAILY 03/17/24 [History] Pantoprazole [Protonix] 40 mg PO DAILY 03/17/24 [History] Rosuvastatin Calcium 40 mg PO DAILY 03/17/24 [History] hydrOXYzine HCL 10 mg PO Q6H PRN 03/17/24 [History] oxyCODONE-APAP 10-325MG [Percocet 10-325 mg] 1 tab PO Q6HR PRN 3 Days #12 tab 03/20/24 [Rx] Apixaban [Eliquis] 2.5 mg PO BID 04/03/24 [History] Bimatoprost [Lumigan 0.01% Ophth Soln] 1 drop BOTH EYES HS 04/03/24 [History] Bumetanide [BUMEX] 1 mg PO DAILY PRN 04/03/24 [History] Colchicine 0.6 mg PO DIRECTED PRN 04/03/24 [History] Gabapentin 600 mg PO TID 04/03/24 [History] allopurinoL 100 mg PO DAILY 04/03/24 [History] Amiodarone [Cordarone] 400 mg PO BID #60 tab 04/12/24 [Rx] Metoprolol Tartrate [Lopressor] 25 mg PO BID #60 tab 04/12/24 [Rx] Spironolactone [Aldactone] 12.5 mg PO DAILY #30 tab 04/12/24 [Rx] Thiamine [Vitamin B-1] 100 mg PO DAILY #60 tab 04/12/24 [Rx] Follow up Appointment(s)/Referral(s): Juan A Malone MD [Primary Care Provider] - 1-2 days Patient Instructions/Handouts: Alcohol Intoxication (DC), Abuse of Alcohol (DC), Alcohol Withdrawal (DC) Activity/Diet/Wound Care/Special Instructions: Please follow up with [facility] surgery team as soon as possible. Discharge Disposition: HOME SELF-CARE
== END 2024-04-16 14:23 | disposition home or self-care (01) ==
LOC: EC 19:12 → 6NMEDSUR 23:49 → 3SCARD 04-15 20:08
PROVIDERS: ADMIT Internal Medicine; ATTEND Internal Medicine
DX: F10.239 Alcohol dependence with withdrawal, unspecified (principal); F10.229 Alcohol dependence with intoxication, unspecified; E87.20 Acidosis, unspecified; D64.9 Anemia, unspecified; R45.851 Suicidal ideations; I48.91 Unspecified atrial fibrillation; I11.0 Hypertensive heart disease with heart failure; I50.20 Unspecified systolic (congestive) heart failure; I71.00 Dissection of unspecified site of aorta; G89.4 Chronic pain syndrome; M54.9 Dorsalgia, unspecified; J45.909 Unspecified asthma, uncomplicated; Z21 Asymptomatic human immunodeficiency virus [HIV] infection status; F43.10 Post-traumatic stress disorder, unspecified; F32.A Depression, unspecified; F43.22 Adjustment disorder with anxiety; Z87.891 Personal history of nicotine dependence; Z79.84 Long term (current) use of oral hypoglycemic drugs; Z79.890 Hormone replacement therapy; Z79.899 Other long term (current) drug therapy; Z79.01 Long term (current) use of anticoagulants
CPT/HCPCS: 96376 ×3; 96375 ×2; 96361; 96374; 99285; 36415; 93005; 80053 ×2; 83735; 84484; 85025 ×2; 85610; 81003; 80306; 80320; 71046; G0378 ×3; J2060 ×2; J2765; J2405 ×2; J1885

== ENCOUNTER 2024-04-20 00:52 | Inpatient (IN) | payer MEDICARE, OTHER ==
--- NOTE | 2024-04-20 01:40 | XR ---
EXAMINATION TYPE: XR chest 1V portable DATE OF EXAM: 04/20/2024 COMPARISON: Chest x-ray April 14, 2024 HISTORY: Overdose TECHNIQUE: Single frontal view of the chest is obtained. FINDINGS: Overlying Sternal wires are redemonstrated. There is no focal air space opacity, pleural e ffusion, or pneumothorax seen. Cardiomegaly is seen. The osseous structures are intact. IMPRESSION: Cardiomegaly without acute pulmonary [facility], , 04/20/2024 1:37 AM
[2024-04-20 01:43] LABS: Basophils % (A) 1 %; Eosinophils # (A) 0.2 k/uL (0-0.7); Eosinophils % (A) 3 %; HCT 34.7 % (39.0-53.0); HGB 11.4 gm/dL (13.0-17.5); Lymphocytes # (A) 2.3 k/uL (1.0-4.8); Lymphocytes % (A) 43 %; MCH 31.6 pg (25.0-35.0); MCV 95.7 fL (80.0-100.0); Mean Platelet Volume 8.5; Monocytes # (A) 0.3 k/uL (0-1.0); Monocytes % (A) 5 %; Neutrophils # (A) 2.4 k/uL (1.3-7.7); Neutrophils % (A) 45 %; Platelet Count 325 k/uL (150-450); RBC 3.62 m/uL (4.30-5.90); RDW 14.8 % (11.5-15.5); WBC 5.3 k/uL (3.8-10.6)
[2024-04-20 01:46] LABS: INR 0.8 (<1.2); Partial Thromboplastin Time 25.7 sec (22.0-30.0); Prothrombin Time 9.6 sec (10.0-12.5)
[2024-04-20] MEDS: SODIUM CHLORIDE 0.9% 1,000 ML IV ONE ×2 (01:59→05:38)
[2024-04-20 02:00] LABS: ALT 12 U/L (4-49); AST 22 U/L (17-59); Acetaminophen <10.0 ug/mL; African American GFR (CKD) >90 (>60 ml/min/1.73 sqM); Albumin 4.2 g/dL (3.5-5.0); Alkaline Phosphatase 119 U/L (38-126); Anion Gap 11 mmol/L; Blood Urea Nitrogen 23 mg/dL (9-20); Calcium 8.7 mg/dL (8.4-10.2); Carbon Dioxide 23 mmol/L (22-30); Chloride 115 mmol/L (98-107); Glucose 128 mg/dL (74-99); Non-African American GFR(CKD) >90 (>60 ml/min/1.73 sqM); Potassium 3.8 mmol/L (3.5-5.1); Salicylate <1.0 mg/dL; Sodium 149 mmol/L (137-145); Total Bilirubin 0.4 mg/dL (0.2-1.3); Total Protein 7.3 g/dL (6.3-8.2)
[2024-04-20 02:15] LABS: Alcohol 291 mg/dL
--- NOTE | 2024-04-20 02:35 | ED ---
Overdose HPI - General Chief Complaint: Overdose Stated Complaint: mental health Time Seen by Provider: 04/20/24 01:07 Source: patient Mode of arrival: ambulatory Limitations: no limitations - History of Present Illness Initial Comments: This patient is a 63-year-old man who presents with complaint that he has taken an overdose of his Lopressor. The patient reports being depressed and suicidal about his medical conditions. He took an overdose of his Lopressor tonight, less than an hour ago. The patient subsequently told his partner who brought gómez m here. Patient without complaints related to the overdose. No chest pain, dyspnea, lightheadedness, syncope, palpitations. MD Complaint: intentional overdose -: minutes(s) Intent: suicide attempt How Overdose Was Discovered: family/friend present at time Context: Intentional Overdose: other Associated Symptoms: depression Treatments Prior to Arrival: none - Related Data Home Medications Medication Instructions Recorded Confirmed Ondansetron [Zofran ODT] 8 mg PO BID PRN 05/18/18 04/23/24 Bictegrav/Emtricit/Tenofov Ala 1 tab PO DAILY 09/07/21 04/23/24 [Biktarvy 50-200-25 mg Tablet] Darunavir/Cobicistat [Prezcobix 1 tab PO DAILY 09/07/22 04/23/24 800 mg-150 mg Tablet] Ipratropium-Albuterol Nebulize 3 ml INHALATION RT-BID PRN 10/23/23 04/23/24 [Duoneb 0.5 mg-3 mg/3 ml Soln] Albuterol Sulfate [Albuterol 1 - 2 puff INHALATION RT-QID PRN 12/27/23 04/23/24 Sulfate Hfa] Empagliflozin [Jardiance] 10 mg PO DAILY 12/27/23 04/23/24 Sacubitril/Valsartan [Entresto 24 1 tab PO BID 12/27/23 04/23/24 mg-26 mg Tablet] Tamsulosin HCl [Flomax] 0.4 mg PO HS 12/27/23 04/23/24 Fenofibrate Nanocrystallized 48 mg PO DAILY 03/17/24 04/23/24 [Fenofibrate] Levothyroxine Sodium 200 mcg PO DAILY 03/17/24 04/23/24 Pantoprazole [Protonix] 40 mg PO DAILY 03/17/24 04/23/24 Rosuvastatin Calcium 40 mg PO DAILY 03/17/24 04/23/24 hydrOXYzine HCL 10 mg PO Q6H PRN 03/17/24 04/23/24 Apixaban [Eliquis] 2.5 mg PO BID 04/03/24 04/23/24 Bimatoprost [Lumigan 0.01% Ophth 1 drop BOTH EYES HS 04/03/24 04/23/24 Soln] Bumetanide [BUMEX] 1 mg PO DAILY PRN 04/03/24 04/23/24 Colchicine 0.6 mg PO DIRECTED PRN 04/03/24 04/23/24 Gabapentin 600 mg PO TID 04/03/24 04/23/24 allopurinoL 100 mg PO DAILY 04/03/24 04/23/24 Previous Rx's Medication Instructions Recorded oxyCODONE-APAP 10-325MG [Percocet 1 tab PO Q6HR PRN 3 Days #12 tab 03/20/24 10-325 mg] Amiodarone [Cordarone] 400 mg PO BID #60 tab 04/12/24 Metoprolol Tartrate [Lopressor] 25 mg PO BID #60 tab 04/12/24 Spironolactone [Aldactone] 12.5 mg PO DAILY #30 tab 04/12/24 Escitalopram [Lexapro] 10 mg PO DAILY 30 Days #30 tab 04/28/24 Lumigan 1 drop BOTH EYES HS 04/28/24 Thiamine [Vitamin B-1] 100 mg PO DAILY 30 Days #30 tab 04/28/24 hydrOXYzine pamoate [Vistaril] 25 mg PO HS 30 Days #30 cap 04/28/24 Allergies Allergy/AdvReac Type Severity Reaction Status Date / Time abacavir [From Ziagen] Allergy Anaphylaxis Verified 04/23/24 17:17 efavirenz [From Sustiva] Allergy Anaphylaxis Verified 04/23/24 17:17 levofloxacin Allergy Itching Verified 04/23/24 17:17 hydrocodone AdvReac Rapid Verified 04/23/24 17:17 [From [facility]] Heart Rate morphine AdvReac Itching Verified 04/23/24 17:17 sulfamethoxazole AdvReac HIGH Verified 04/23/24 17:17 [From Bactrim] CREATININE LEVEL trimethoprim [From Bactrim] AdvReac HIGH Verified 04/23/24 17:17 CREATININE Review of Systems ROS Statement: Those systems with pertinent positive or pertinent negative responses have been documented in the HPI. ROS Other: All systems not noted in ROS Statement are negative. Constitutional: Denies: fever, chills, weakness Eyes: Denies: vision change Respiratory: Denies: cough, dyspnea Cardiovascular: Denies: chest pain, palpitations, edema Gastrointestinal: Denies: abdominal pain, nausea, vomiting, diarrhea Genitourinary: Denies: dysuria, hematuria Musculoskeletal: Denies: back pain Skin: Denies: rash Neurological: Denies: headache, weakness, numbness Psychiatric: Reports: depression, suicidal thoughts Past Medical History Past Medical History: Atrial Fibrillation, Asthma, Heart Failure, Fibromyalgia, GERD/Reflux, Hypertension, Prostate Disorder Additional Past Medical History / Comment(s): Mitral valve disease w/ MV repair at [facility] 2000, HIV positive, past HTN and recently low blood pressures, BPH, R ankle gout, chronic nausea, bilateral glaucoma, chronic pain syndrome, chronic low back and bilateral hip pain and occasional cervical pain, DDD, lumbar stenosis/spondylosis, abdominal hernia, previous history of drug overdose. PTSD History of Any Multi-Drug Resistant Organisms: None Reported Past Surgical History: Heart Catheterization, Hernia Repair Additional Past Surgical History / Comment(s): Mitral valve repair at [facility] (2000), Type A aortic disection repordedly treated conservatively by [facility], R inguinal hernia x2, L inguinal hernia, epidural injections to back, hip injections, RFAs, spinal cord stimulator trial-removed, Past Anesthesia/Blood Transfusion Reactions: No Reported Reaction Past Psychological History: Anxiety, Depression, PTSD Smoking Status: Former smoker Past Alcohol Use History: Abuse Past Drug Use History: Marijuana, Prescription Drug Abuse - Past Family History Father History Unknown: Yes Additional Family Medical History / Comment(s): Father was injured at work and of complication during his hospitalization. Mother Additional Family Medical History / Comment(s): Mother is from alcoholism. Brother(s) Additional Family Medical History / Comment(s): alcohol and HF General Exam Limitations: no limitations General appearance: alert, in no apparent distress Head exam: Present: atraumatic, normocephalic Eye exam: Present: normal appearance. Absent: scleral icterus, conjunctival injection ENT exam: Present: normal oropharynx Neck exam: Present: normal inspection Respiratory exam: Present: normal lung sounds bilaterally. Absent: respiratory distress, wheezes, rales, rhonchi, stridor, accessory muscle use Cardiovascular Exam: Present: regular rate, normal rhythm, normal heart sounds. Absent: systolic murmur, diastolic murmur, rubs, gallop GI/Abdominal exam: Present: soft. Absent: distended, tenderness, guarding, rebound, rigid, mass Extremities exam: Present: normal inspection, normal capillary refill. Absent: pedal edema, calf tenderness Back exam: Present: normal inspection. Absent: CVA tenderness (R), CVA tenderness (L) Neurological exam: Present: alert Psychiatric exam: Present: depressed, suicidal ideation Skin exam: Present: warm, dry, intact, normal color. Absent: rash Course Vital Signs 04/20/24 04/20/24 04/20/24 00:55 02:39 03:00 Temperature 98.2 F Pulse Rate 99 74 77 Respiratory 18 18 16 Rate Blood Pressure 137/72 97/77 118/58 O2 Sat by Pulse 99 95 97 Oximetry 04/20/24 04/20/24 04/20/24 05:41 06:27 08:04 Temperature Pulse Rate 76 77 70 Respiratory 16 16 18 Rate Blood Pressure 121/70 129/73 124/54 O2 Sat by Pulse 95 95 95 Oximetry 04/20/24 04/20/24 04/20/24 10:03 12:55 13:34 Temperature Pulse Rate 75 77 Respiratory 18 20 Rate Blood Pressure 150/80 155/76 O2 Sat by Pulse 97 98 98 Oximetry 04/20/24 04/20/24 04/20/24 14:28 15:00 16:00 Temperature Pulse Rate 73 68 74 Respiratory 22 20 22 Rate Blood Pressure 137/72 164/99 150/78 O2 Sat by Pulse 96 92 L 96 Oximetry 04/20/24 04/20/24 04/20/24 18:25 21:14 22:00 Temperature Pulse Rate 75 69 73 Respiratory 22 20 18 Rate Blood Pressure 128/74 154/79 141/70 O2 Sat by Pulse 98 95 95 Oximetry 04/20/24 04/21/24 04/21/24 23:00 01:12 03:32 Temperature Pulse Rate 69 63 67 Respiratory 18 18 18 Rate Blood Pressure 137/72 140/72 149/70 O2 Sat by Pulse 94 L 97 93 L Oximetry 04/21/24 04/21/24 04/21/24 06:26 07:24 15:00 Temperature Pulse Rate 84 73 Respiratory 18 18 Rate Blood Pressure 128/61 145/77 141/78 O2 Sat by Pulse 98 96 Oximetry 04/21/24 04/21/24 04/21/24 16:21 16:22 17:00 Temperature Pulse Rate 83 77 Respiratory 18 16 Rate Blood Pressure 156/80 156/80 165/62 O2 Sat by Pulse 97 97 Oximetry Procedures - [place] Protocol (Time Out) Nurse: Vijay Delaney Medical Decision Making - Medical Decision Making Was pt. sent in by a medical professional or institution (, PA, AMBULETTE DRIVER, urgent care, hospital, or care home...) When possible be specific @ -[No] Did you speak to anyone other than the patient for history (EMS, parent, family, police, friend...)? What history was obtained from this source @ -[Patient's partner did give some history Did you review nursing and triage notes (agree or disagree)? Why? @ -[I reviewed and agree with nursing and triage notes] Were old charts reviewed (outside hosp., previous admission, EMS record, old EKG, old radiological studies, urgent care reports/EKG's, care home records)? Report findings @ -[No old charts were reviewed] Differential Diagnosis (chest pain, altered mental status, abdominal pain women, abdominal pain men, vaginal bleeding, weakness, fever, dyspnea, syncope, headache, dizziness, GI bleed, back pain, seizure, CVA, palpatations, mental health, musculoskeletal)? @ -[Differential Mental Health Depression, anxiety, bipolar, psychosis, schizophrenia, borderline personality, situational depression, adjustment disorder, behavioral disorder, brain tumor, malingering, substance abuse, encephalopathy, medication reaction, dementia, hypothyroidism, degenerative neurologic disorder, lupus.... This is not meant to be all-inclusive list EKG interpreted by me (3pts min.). @ -[As above] X-rays interpreted by me (1pt min.). @ -[None done] CT interpreted by me (1pt min.). @ -[None done] U/S interpreted by me (1pt. min.). @ -[None done] What testing was considered but not performed or refused? (CT, X-rays, U/S, labs)? Why? @ -[None] What meds were considered but not given or refused? Why? @ -[None] Did you discuss the management of the patient with other professionals (professionals i.e. , PA, AMBULETTE DRIVER, lab, RT, psych nurse, social media marketing specialist, monomer recovery supervisor, teacher, president and chief executive officer, case specialist)? Give summary @ -[I personally discussed the case with the poison control team. They did send a fax for treatment protocol for beta-trish overdose this protocol initiated. Discussed with the admitting physician and with the spa director/finance service Was smoking cessation discussed for >3mins.? @ -[No] Was critical care preformed (if so, how long)? @ -[Yes, 30 minutes Were there social determinants of health that impacted care today? How? (Homelessness, low income, unemployed, alcoholism, drug addiction, transportation, low edu. Level, literacy, decrease access to med. care, shelter, rehab)? @ -[No] Was there de-escalation of care discussed even if they declined (Discuss DNR or withdrawal of care, Hospice)? DNR status @ -[No] What co-morbidities impacted this encounter? (DM, HTN, Smoking, COPD, CAD, Cancer, CVA, ARF, Chemo, Hep., AIDS, mental health diagnosis, sleep apnea, morbid obesity)? @ -[Pretension Was patient admitted / discharged? Hospital course, mention meds given and route, prescriptions, significant lab abnormalities, going to OR and other pertinent info. @ -[Patient is 63-year-old man here following intentional beta-trish overdose. The patient initially not manifesting any symptoms, he is started on treatment protocol and admitted to the medical team with psychiatric consultation. Undiagnosed new problem with uncertain prognosis? @ -[No] Drug Therapy requiring intensive monitoring for toxicity (Heparin, Nitro, In sulin, Cardizem)? @ -[No] Were any procedures done? @ -[No] Diagnosis/symptom? @ -[Acute Lopressor overdose Mood disorder, acute on chronic Acute suicidal ideation Acute, or Chronic, or Acute on Chronic? @ -[default] Uncomplicated (without systemic symptoms) or Complicated (systemic symptoms)? @ -[Suicidal ideation complicated by overdose Side effects of treatment? @ -[No] Exacerbation, Progression, or Severe Exacerbation? @ -[No] Poses a threat to life or bodily function? How? (Chest pain, [place], CO, pneumonia, PE, COPD, DKA, ARF, appy, cholecystitis, CVA, Diverticulitis, Homicidal, Brandy cidal, threat to staff... and all critical care pts) @ -[Yes there is risk of hypotension, shock, - Lab Data Result diagrams: 04/21/24 06:30 04/21/24 06:30 Lab Results 04/20/24 04/20/24 04/20/24 Range/Units 01:12 01:12 01:15 WBC 5.3 (3.8-10.6) k/uL RBC 3.62 L (4.30-5.90) m/uL Hgb 11.4 L (13.0-17.5) gm/dL Hct 34.7 L (39.0-53.0) % MCV 95.7 (80.0-100.0) fL MCH 31.6 (25.0-35.0) pg MCHC 33.0 (31.0-37.0) g/dL RDW 14.8 (11.5-15.5) % Plt Count 325 (150-450) k/uL MPV 8.5 Neutrophils % 45 % Lymphocytes % 43 % Monocytes % 5 % Eosinophils % 3 % Basophils % 1 % Neutrophils # 2.4 (1.3-7.7) k/uL Lymphocytes # 2.3 (1.0-4.8) k/uL Monocytes # 0.3 (0-1.0) k/uL Eosinophils # 0.2 (0-0.7) k/uL Basophils # 0.0 (0-0.2) k/uL PT (10.0-12.5) sec INR (<1.2) APTT (22.0-30.0) sec Sodium (137-145) mmol/L Potassium (3.5-5.1) mmol/L Chloride (98-107) mmol/L Carbon Dioxide (22-30) mmol/L Anion Gap mmol/L BUN (9-20) mg/dL Creatinine (0.66-1.25) mg/dL Est GFR (CKD-EPI)AfAm (>60 ml/min/1.73 sqM) Est GFR (CKD-EPI)NonAf (>60 ml/min/1.73 sqM) Glucose (74-99) mg/dL Plasma Lactic Acid Alexey 1.5 (0.7-2.0) mmol/L Calcium (8.4-10.2) mg/dL Total Bilirubin (0.2-1.3) mg/dL AST (17-59) U/L ALT (4-49) U/L Alkaline Phosphatase (38-126) U/L Troponin I (0.000-0.034) ng/mL Total Protein (6.3-8.2) g/dL Albumin (3.5-5.0) g/dL Salicylates mg/dL Urine Opiates Screen Not Detected (NotDetected) Ur Oxycodone Screen Not Detected (NotDetected) Urine Methadone Screen Not Detected (NotDetected) Acetaminophen ug/mL Ur Barbiturates Screen Not Detected (NotDetected) U Tricyclic Antidepress Not Detected (NotDetected) Ur Phencyclidine Scrn Not Detected (NotDetected) Ur Amphetamines Screen Not Detected (NotDetected) U Methamphetamines Scrn Not Detected (NotDetected) U Benzodiazepines Scrn Detected H (NotDetected) Urine Cocaine Screen Not Detected (NotDetected) U Marijuana (THC) Screen Not Detected (NotDetected) Serum Alcohol mg/dL 04/20/24 04/20/24 04/20/24 Range/Units 01:15 01:15 01:15 WBC (3.8-10.6) k/uL RBC (4.30-5.90) m/uL Hgb (13.0-17.5) gm/dL Hct (39.0-53.0) % MCV (80.0-100.0) fL MCH (25.0-35.0) pg MCHC (31.0-37.0) g/dL RDW (11.5-15.5) % Plt Count (150-450) k/uL MPV Neutrophils % % Lymphocytes % % Monocytes % % Eosinophils % % Basophils % % Neutrophils # (1.3-7.7) k/uL Lymphocytes # (1.0-4.8) k/uL Monocytes # (0-1.0) k/uL Eosinophils # (0-0.7) k/uL Basophils # (0-0.2) k/uL PT 9.6 L (10.0-12.5) sec INR 0.8 (<1.2) APTT 25.7 (22.0-30.0) sec Sodium 149 H (137-145) mmol/L Potassium 3.8 (3.5-5.1) mmol/L Chloride 115 H (98-107) mmol/L Carbon Dioxide 23 (22-30) mmol/L Anion Gap 11 mmol/L BUN 23 H (9-20) mg/dL Creatinine 0.84 (0.66-1.25) mg/dL Est GFR (CKD-EPI)AfAm >90 (>60 ml/min/1.73 sqM) Est GFR (CKD-EPI)NonAf >90 (>60 ml/min/1.73 sqM) Glucose 128 H (74-99) mg/dL Plasma Lactic Acid Alexey (0.7-2.0) mmol/L Calcium 8.7 (8.4-10.2) mg/dL Total Bilirubin 0.4 (0.2-1.3) mg/dL AST 22 (17-59) U/L ALT 12 (4-49) U/L Alkaline Phosphatase 119 (38-126) U/L Troponin I <0.012 (0.000-0.034) ng/mL Total Protein 7.3 (6.3-8.2) g/dL Albumin 4.2 (3.5-5.0) g/dL Salicylates <1.0 mg/dL Urine Opiates Screen (NotDetected) Ur Oxycodone Screen (NotDetected) Urine Methadone Screen (NotDetected) Acetaminophen <10.0 ug/mL Ur Barbiturates Screen (NotDetected) U Tricyclic Antidepress (NotDetected) Ur Phencyclidine Scrn (NotDetected) Ur Amphetamines Screen (NotDetected) U Methamphetamines Scrn (NotDetected) U Benzodiazepines Scrn (NotDetected) Urine Cocaine Screen (NotDetected) U Marijuana (THC) Screen (NotDetected) Serum Alcohol 291 H* mg/dL - EKG Data -: EKG Interpreted by [facility] EKG shows normal: sinus rhythm, axis (Left axis deviation.), intervals (Normal.), QRS complexes (Old anteroseptal infarct.) Rate: normal (89 bpm) Disposition Clinical Impression: Overdose, Mood disorder, Suicidal ideation Disposition: ADMITTED IP TO THIS HOSP Condition: Stable Is patient prescribed a controlled substance at d/c from ED?: No
[2024-04-20 04:25] LABS: Amphetamine Screen,Urine Not Detected (NotDetected); Barbiturate Screen,Urine Not Detected (NotDetected); Benzodiazepines Screen,Urine Detected (NotDetected); Cocaine Screen,Urine Not Detected (NotDetected); Methadone Screen, Urine Not Detected (NotDetected); Opiate Screen,Urine Not Detected (NotDetected); Oxycodone Screen, Urine Not Detected (NotDetected); Phencyclidine Screen,Urine Not Detected (NotDetected); Tricyclic Antidepressant,Urine Not Detected (NotDetected); Urn Cannabinoid Scrn Not Detected (NotDetected)
[2024-04-20] MEDS ORDERED: NALOXONE 0.4 MG/ML 1 ML VIAL IV PRN (04:33)
--- NOTE | 2024-04-20 04:48 | P.HPIM ---
History of Present Illness H&P Date: 04/20/24 Patient is a 63-year-old male with a PMH of A-fib on Eliquis, systolic CHF with EF 35 to 40%, stable type a aortic dissection following with urogram, EtOH abuse, and HIV who presents to the emergency room after an intentional overdose. Patient reports that he has been feeling down about his life for the past several months and has been drinking a 1/5 of hard liquor daily. He reports that earlier today he wanted to "end it all" and decided to take a 3-week supply of metoprolol 25 mg twice daily tablets along with a bottle of vodka. he took the medications at around 12:40 am today. He reports feeling at his baseline at the time of interview and had no active complaints other than chronic lower back pain. Experiencing chest discomfort, shortness breath, fever, chills, cough, nausea, vomiting, abdominal pain, diarrhea. Case was discussed with poison control by ED provider. EKG in emergency room revealed sinus rhythm with left axis deviation at 89 bpm with diffuse Q waves as reviewed by me. Chest x-ray revealed cardiomegaly without acute abnormalities. Laboratory evaluation revealed a serum alcohol level 291 with troponin less than 0.012 with hemoglobin 11.4, sodium 149, chloride 115, BUN 23, creatinine 0.84. ED documentation reviewed and case discussed with ED provider. Review of systems: Pertinent positives and negatives as discussed in HPI, a complete review of systems was performed and all other systems are negative. Physical examination: Vital signs reviewed General: non toxic, no distress, appears older than stated age, overweight Derm: no unusual rashes/lesions, warm Head: atraumatic, normocephalic, symmetric Eyes: EOMI, no lid lag, anicteric sclera, pupils equal round reactive to light ENT: Nose and ears atraumatic Neck: No cervical lymphadenopathy, trachea midline, supple Mouth: no lip lesion, mucus membranes moist Cardiovascular: S1S2 reg, no murmur, positive dorsalis pedis pulse bilateral, no edema Lungs: CTA bilateral, no rhonchi, no rales, no accessory muscle use Abdominal: soft, nontender to palpation, no guarding Ext: muscle strength 5 out of 5 in all 4 extremities grossly, no gross muscle atrophy, no contractures, Neuro: CN II-XI grossly intact, no gross focal neuro deficits Psych: Alert, oriented, appropriate affect Assessment: Intentional bta-trish overdose Alcohol abuse, impending withdrawal Hypochloremic hyponatremia Depression with suicidal ideation Chronic conditions: A-fib, systolic CHF, aortic dissection, HIV Imaging: EKG in emergency room revealed sinus rhythm with left axis deviation at 89 bpm with diffuse Q waves as reviewed by me. Chest x-ray revealed cardiomegaly without acute abnormalities. Data Review: Laboratory evaluation revealed a serum alcohol level 291 with troponin less than 0.012 with hemoglobin 11.4, sodium 149, chloride 115, BUN 23, creatinine 0.84. Plan: Patient currently asymptomatic S/p activaed charcoal Status post 1 L normal saline Judicious use of IV fluids in setting of CHF CIWA protocol Continue thiamine and multivitamin Fall and seizure precautions [facility] Crdiac monitoring Psychiatry consulted Suicide precautions DVT prophylaxis: Lovenox Subq The patient is admitted with an anticipated greater midnight stay for evaluation of overdose CODE STATUS: Full Code Discussed with: Patient Anticipated discharge place: Home Past Medical History Past Medical History: Atrial Fibrillation, Asthma, Heart Failure, Fibromyalgia, GERD/Reflux, Hypertension, Prostate Disorder Additional Past Medical History / Comment(s): Mitral valve disease w/ MV repair at [facility] 2000, HIV positive, past HTN and recently low blood pressures, BPH, R ankle gout, chronic nausea, bilateral glaucoma, chronic pain syndrome, chronic low back and bilateral hip pain and occasional cervical pain, DDD, lumbar stenosis/spondylosis, abdominal hernia, previous history of drug overdose. PTSD History of Any Multi-Drug Resistant Organisms: None Reported Past Surgical History: Heart Catheterization, Hernia Repair Additional Past Surgical History / Comment(s): Mitral valve repair at [facility] (2000), Type A aortic disection repordedly treated conservatively by [facility], R inguinal hernia x2, L inguinal hernia, epidural injections to back, hip injections, RFAs, spinal cord stimulator trial-removed, Past Anesthesia/Blood Transfusion Reactions: No Reported Reaction Past Psychological History: Anxiety, Depression, PTSD Smoking Status: Former smoker Past Alcohol Use History: Abuse Past Drug Use History: Marijuana, Prescription Drug Abuse - Past Family History Father History Unknown: Yes Additional Family Medical History / Comment(s): Father was injured at work and of complication during his hospitalization. Mother Additional Family Medical History / Comment(s): Mother is from alcoholism. Brother(s) Additional Family Medical History / Comment(s): alcohol and HF Medications and Allergies Home Medications Medication Instructions Recorded Confirmed Type Ondansetron [Zofran ODT] 8 mg PO BID PRN 05/18/18 04/15/24 History Bictegrav/Emtricit/Tenofov Ala 1 tab PO DAILY 09/07/21 04/15/24 History [Biktarvy 50-200-25 mg Tablet] Darunavir/Cobicistat [Prezcobix 1 tab PO DAILY 09/07/22 04/15/24 History 800 mg-150 mg Tablet] Ipratropium-Albuterol Nebulize 3 ml INHALATION RT-BID PRN 10/23/23 04/15/24 History [Duoneb 0.5 mg-3 mg/3 ml Soln] Albuterol Sulfate [Albuterol 1 - 2 puff INHALATION RT-QID PRN 12/27/23 04/15/24 History Sulfate Hfa] Empagliflozin [Jardiance] 10 mg PO DAILY 12/27/23 04/15/24 History Sacubitril/Valsartan [Entresto 24 1 tab PO BID 12/27/23 04/15/24 History mg-26 mg Tablet] Tamsulosin HCl [Flomax] 0.4 mg PO HS 12/27/23 04/15/24 History Fenofibrate Nanocrystallized 48 mg PO DAILY 03/17/24 04/15/24 History [Fenofibrate] Levothyroxine Sodium 200 mcg PO DAILY 03/17/24 04/15/24 History Pantoprazole [Protonix] 40 mg PO DAILY 03/17/24 04/15/24 History Rosuvastatin Calcium 40 mg PO DAILY 03/17/24 04/15/24 History hydrOXYzine HCL 10 mg PO Q6H PRN 03/17/24 04/15/24 History oxyCODONE-APAP 10-325MG [Percocet 1 tab PO Q6HR PRN 3 Days #12 tab 03/20/24 Rx 10-325 mg] Apixaban [Eliquis] 2.5 mg PO BID 04/03/24 04/15/24 History Bimatoprost [Lumigan 0.01% Ophth 1 drop BOTH EYES HS 04/03/24 04/15/24 History Soln] Bumetanide [BUMEX] 1 mg PO DAILY PRN 04/03/24 04/15/24 History Colchicine 0.6 mg PO DIRECTED PRN 04/03/24 04/15/24 History Gabapentin 600 mg PO TID 04/03/24 04/15/24 History allopurinoL 100 mg PO DAILY 04/03/24 04/15/24 History Amiodarone [Cordarone] 400 mg PO BID #60 tab 04/12/24 04/15/24 Rx Metoprolol Tartrate [Lopressor] 25 mg PO BID #60 tab 04/12/24 04/15/24 Rx Spironolactone [Aldactone] 12.5 mg PO DAILY #30 tab 04/12/24 04/15/24 Rx Thiamine [Vitamin B-1] 100 mg PO DAILY #60 tab 04/12/24 04/15/24 Rx Allergies Allergy/AdvReac Type Severity Reaction Status Date / Time abacavir [From Ziagen] Allergy Anaphylaxis Verified 04/20/24 00:57 efavirenz [From Sustiva] Allergy Anaphylaxis Verified 04/20/24 00:57 levofloxacin Allergy Itching Verified 04/20/24 00:57 hydrocodone AdvReac Rapid Verified 04/20/24 00:57 [From Hysingla ER] Heart Rate morphine AdvReac Itching Verified 04/20/24 00:57 sulfamethoxazole AdvReac HIGH Verified 04/20/24 00:57 [From Bactrim] CREATININE LEVEL trimethoprim [From Bactrim] AdvReac HIGH Verified 04/20/24 00:57 CREATININE Physical Exam Vitals: Vital Signs Temp Pulse Resp BP Pulse Ox 04/20/24 03:00 77 16 118/58 97 04/20/24 02:39 74 18 97/77 95 04/20/24 00:55 98.2 F 99 18 137/72 99 Intake and Output 04/19/24 04/19/24 04/20/24 14:59 22:59 06:59 Other: Weight 78.471 kg Results CBC & Chem 7: 04/20/24 01:15 04/20/24 01:15 Labs: Abnormal Lab Results - Last 24 Hours (Table) 04/20/24 04/20/24 04/20/24 Range/Units 01:12 01:15 01:15 RBC 3.62 L (4.30-5.90) m/uL Hgb 11.4 L (13.0-17.5) gm/dL Hct 34.7 L (39.0-53.0) % PT 9.6 L (10.0-12.5) sec Sodium (137-145) mmol/L Chloride (98-107) mmol/L BUN (9-20) mg/dL Glucose (74-99) mg/dL U Benzodiazepines Scrn Detected H (NotDetected) Serum Alcohol mg/dL 04/20/24 Range/Units 01:15 RBC (4.30-5.90) m/uL Hgb (13.0-17.5) gm/dL Hct (39.0-53.0) % PT (10.0-12.5) sec Sodium 149 H (137-145) mmol/L Chloride 115 H (98-107) mmol/L BUN 23 H (9-20) mg/dL Glucose 128 H (74-99) mg/dL U Benzodiazepines Scrn (NotDetected) Serum Alcohol 291 H* mg/dL
[2024-04-20] MEDS: LORazepam 2 MG/ML INJ IV PRN ×2 (05:40→09:57)
[2024-04-20] MEDS: ONDANSETRON 4 MG/2 ML VIAL IVP STA (06:59)
[2024-04-20] MEDS: ENOXAPARIN 40 MG/0.4 ML SYRINGE SQ SCH (09:58)
--- NOTE | 2024-04-20 13:53 | P.CNPUL ---
History of Present Illness Consult date: 04/20/24 Chief complaint: Drug overdose History of present illness: This is a 63-year-old male patient who is being seen for acute ingestion of beta-blockers and the patient states that he has taken approximately 60 tablets of metoprolol and he believes the dose is around 25 mg. At the same time, the patient was drinking alcohol. He was feeling down. He was feeling depressed. Based on that, he ingested the medication immediately came into reverse department. He was treated with activated charcoal. He is known to have alcoholism and drinks around the fifth of vodka on a daily basis. Currently, is a bit shaky in the emergency department. No significant bradycardia. No significant hypotension. Awake and alert and communicating. He is known to have multiple comorbidities including history of congestion heart failure. Also has a type a dissection of the aortic arch which has not required any surgical intervention. He is known to have chronic atrial fibrillation maintained on anticoagulation and outpatient basis. He is also known to have COPD, chronic depression and HIV. He lives with his male partner. He is a bit anxious and shaky. His vesicles at 5.3 with a hemoglobin 9.4 and a platelet count of 325. Normal coagulation profile.. 23 creatinine 0.8 and sodium levels at 149 and a bicarb is at 23. Troponins are negative. LFTs are normal. The patient is currently off beta-blockers. He is receiving Ativan for DVT prophylaxis. He has been maintained on Biktarvy on outpatient basis. He has also been on an adequate management for CHF management including a combination of Entresto, Aldactone, metoprolol as beta-blockers and Jardiance. He has been also taking Bumex on outpatient basis 1 mg p.o. daily. He is maintained on amiodarone regarding his chronic A-fib 5 mg p.o. twice daily and anticoagulation with Eliqu is. Most recent heart rate is 77. EKG is showing sinus rhythm with a heart rate of 89 with an old anteroseptal Q waves. Review of Systems Constitutional: Reports fatigue, Reports weakness Eyes: denies as per HPI, denies blurred vision, denies bulging eye, denies decreased vision, denies diplopia, denies discharge, denies dry eye, denies irritation, denies itching, denies pain, denies photophobia, denies loss of peripheral vision, denies loss of vision, denies tunnel vision/blind spots Ears: deny: decreased hearing, ear discharge, earache, tinnitus Ears, nose, mouth and throat: Reports as per HPI Breasts: absent: as per HPI, gynecomastia Cardiovascular: Reports decreased exercise tolerance Respiratory: Reports as per HPI, Reports dyspnea Gastrointestinal: Reports as per HPI Genitourinary: Reports as per HPI Musculoskeletal: Reports as per HPI Musculoskeletal: absent: ankle pain, ankle stiffness, ankle swelling, as per HPI, elbow pain, elbow stiffness, elbow swelling, foot pain, foot stiffness, foot swelling, hand pain, hand stiffness, hand swelling, hip pain, hip stiffness, hip swelling, knee pain, knee stiffness, knee swelling, shoulder pain, shoulder stiffness, shoulder swelling, wrist pain, wrist stiffness, wrist swelling Integumentary: Reports as per HPI Neurological: Reports as per HPI Psychiatric: Reports depression Endocrine: Reports as per HPI Hematologic/Lymphatic: Reports as per HPI Allergic/Immunologic: Reports as per HPI Past Medical History Past Medical History: Atrial Fibrillation, Asthma, Heart Failure, Fibromyalgia, GERD/Reflux, Hypertension, Prostate Disorder Additional Past Medical History / Comment(s): Mitral valve disease w/ MV repair at [facility] 2000, HIV positive, past HTN and recently low blood pressures, BPH, R ankle gout, chronic nausea, bilateral glaucoma, chronic pain syndrome, chronic low back and bilateral hip pain and occasional cervical pain, DDD, lumbar stenosis/spondylosis, abdominal hernia, previous history of drug overdose. PTSD History of Any Multi-Drug Resistant Organisms: None Reported Past Surgical History: Heart Catheterization, Hernia Repair Additional Past Surgical History / Comment(s): Mitral valve repair at [facility] (2000), Type A aortic disection repordedly treated conservatively by [facility], R inguinal hernia x2, L inguinal hernia, epidural injections to back, hip injections, RFAs, spinal cord stimulator trial-removed, Past Anesthesia/Blood Transfusion Reactions: No Reported Reaction Past Psychological History: Anxiety, Depression, PTSD Smoking Status: Former smoker Past Alcohol Use History: Abuse Past Drug Use History: Marijuana, Prescription Drug Abuse - Past Family History Father History Unknown: Yes Additional Family Medical History / Comment(s): Father was injured at work and of complication during his hospitalization. Mother Additional Family Medical History / Comment(s): Mother is from alcoholism. Brother(s) Additional Family Medical History / Comment(s): alcohol and HF Medications and Allergies Home Medications Medication Instructions Recorded Confirmed Type Ondansetron [Zofran ODT] 8 mg PO BID PRN 05/18/18 04/20/24 History Bictegrav/Emtricit/Tenofov Ala 1 tab PO DAILY 09/07/21 04/20/24 History [Biktarvy 50-200-25 mg Tablet] Darunavir/Cobicistat [Prezcobix 1 tab PO DAILY 09/07/22 04/20/24 History 800 mg-150 mg Tablet] Ipratropium-Albuterol Nebulize 3 ml INHALATION RT-BID PRN 10/23/23 04/20/24 History [Duoneb 0.5 mg-3 mg/3 ml Soln] Albuterol Sulfate [Albuterol 1 - 2 puff INHALATION RT-QID PRN 12/27/23 04/20/24 History Sulfate Hfa] Empagliflozin [Jardiance] 10 mg PO DAILY 12/27/23 04/20/24 History Sacubitril/Valsartan [Entresto 24 1 tab PO BID 12/27/23 04/20/24 History mg-26 mg Tablet] Tamsulosin HCl [Flomax] 0.4 mg PO HS 12/27/23 04/20/24 History Fenofibrate Nanocrystallized 48 mg PO DAILY 03/17/24 04/20/24 History [Fenofibrate] Levothyroxine Sodium 200 mcg PO DAILY 03/17/24 04/20/24 History Pantoprazole [Protonix] 40 mg PO DAILY 03/17/24 04/20/24 History Rosuvastatin Calcium 40 mg PO DAILY 03/17/24 04/20/24 History hydrOXYzine HCL 10 mg PO Q6H PRN 03/17/24 04/20/24 History oxyCODONE-APAP 10-325MG [Percocet 1 tab PO Q6HR PRN 3 Days #12 tab 03/20/24 04/20/24 Rx 10-325 mg] Apixaban [Eliquis] 2.5 mg PO BID 04/03/24 04/20/24 History Bimatoprost [Lumigan 0.01% Ophth 1 drop BOTH EYES HS 04/03/24 04/20/24 History Soln] Bumetanide [BUMEX] 1 mg PO DAILY PRN 04/03/24 04/20/24 History Colchicine 0.6 mg PO DIRECTED PRN 04/03/24 04/20/24 History Gabapentin 600 mg PO TID 04/03/24 04/20/24 History allopurinoL 100 mg PO DAILY 04/03/24 04/20/24 History Amiodarone [Cordarone] 400 mg PO BID #60 tab 04/12/24 04/20/24 Rx Metoprolol Tartrate [Lopressor] 25 mg PO BID #60 tab 04/12/24 04/20/24 Rx Spironolactone [Aldactone] 12.5 mg PO DAILY #30 tab 04/12/24 04/20/24 Rx Thiamine [Vitamin B-1] 100 mg PO DAILY #60 tab 04/12/24 04/20/24 Rx Allergies Allergy/AdvReac Type Severity Reaction Status Date / Time abacavir [From Ziagen] Allergy Anaphylaxis Verified 04/20/24 09:34 efavirenz [From Sustiva] Allergy Anaphylaxis Verified 04/20/24 09:34 levofloxacin Allergy Itching Verified 04/20/24 09:34 hydrocodone AdvReac Rapid Verified 04/20/24 09:34 [From Hysing[facility] ER] Heart Rate morphine AdvReac Itching Verified 04/20/24 09:34 sulfamethoxazole AdvReac HIGH Verified 04/20/24 09:34 [From Bactrim] CREATININE LEVEL trimethoprim [From Bactrim] AdvReac HIGH Verified 04/20/24 09:34 CREATININE Physical Exam Vitals: Vital Signs Temp Pulse Resp BP Pulse Ox 04/20/24 10:03 75 18 150/80 97 04/20/24 08:04 70 18 124/54 95 04/20/24 06:27 77 16 129/73 95 04/20/24 05:41 76 16 121/70 95 04/20/24 03:00 77 16 118/58 97 04/20/24 02:39 74 18 97/77 95 04/20/24 00:55 98.2 F 99 18 137/72 99 Intake and Output 04/19/24 04/20/24 04/20/24 22:59 06:59 14:59 Other: Weight 78.471 kg The patient appeared well nourished and normally developed. Vital signs as documented. Head exam is unremarkable. No scleral icterus or corneal arcus noted. Neck is without jugular venous distension, thyromegaly, or carotid bruits. Carotid upstrokes are brisk bilaterally. Lungs are clear to auscultation and percussion. Cardiac exam reveals the PMI to be normally sized and situated. Rhythm is re gular. First and second heart sounds normal. No murmurs, rubs or gallops. Abdominal exam reveals normal bowel sounds, no masses, no organomegaly and no aortic enlargement. Extremities are nonedematous and both femoral and pedal pulses are normal. Examination of the skin revealed no evidence of significant rashes, suspicious appearing nevi or other concerning lesions. Neurologically, the patient is awake and alert and the patient does not have any focal neurological deficit. Cranial nerves are essentially intact. The patient is slightly shaky and restless probably impending delirium tremens and currently is on Ativan. Results - Laboratory Findings CBC and BMP: 04/20/24 01:15 04/20/24 01:15 PT/INR, D-dimer PT 9.6 sec (10.0-12.5) L 04/20/24 01:15 INR 0.8 (<1.2) 04/20/24 01:15 Abnormal lab findings: Abnormal Labs 04/20/24 04/20/24 04/20/24 01:12 01:15 01:15 RBC 3.62 L Hgb 11.4 L Hct 34.7 L PT 9.6 L Sodium Chloride BUN Glucose U Benzodiazepines Scrn Detected H Serum Alcohol 04/20/24 01:15 RBC Hgb Hct PT Sodium 149 H Chloride 115 H BUN 23 H Glucose 128 H U Benzodiazepines Scrn Serum Alcohol 291 H* - Diagnostic Findings Chest x-ray: image reviewed Assessment and Plan Plan: Acute drug overdose and the patient took a large quantity of beta-blockers in the form metoprolol 25 mg, probably an order of 60 tablets. Nevertheless, the patient underwent treatment with activated charcoal. No significant bradycardia or hemodynamic instability at this point in time. EKG showed no cardiac blocks and a cardiac rhythm is sinus and the patient is clinically and hemodynamically stable. Rule out suicidal attempt. Acute alcohol intoxication History of atrial fibrillation, maintained on amiodarone and beta-blockers on outpatient basis in addition to anticoagulation with Eliquis Type A dissecting aortic aneurysm, treated conservatively History of mitral valve repair History of HIV maintained on highly active antiretroviral treatment History of avascular necrosis of the hip and the patient underwent a left hip arthroplasty on 03/18/2024 COPD BPH Acid reflux Hypertension Chronic pain History of lumbar stenosis with spondylosis Glucoma Plan As mentioned, the patient is clinically and hemodynamically stable. Will need a psychiatric evaluation. Will need a sitter at the bedside for suicide precautions. Patient also will monitor for delirium tremens. The patient will be given Ativan per [facility] protocol. The patient will be given thiamine and multivitamins. Resume home medications and hold beta-blockers for now. Will continue to follow.
[2024-04-20 13:54] LABS: African American GFR (CKD) >90 (>60 ml/min/1.73 sqM); Anion Gap 9 mmol/L; Blood Urea Nitrogen 18 mg/dL (9-20); Calcium 8.9 mg/dL (8.4-10.2); Carbon Dioxide 23 mmol/L (22-30); Chloride 111 mmol/L (98-107); Glucose 118 mg/dL (74-99); Non-African American GFR(CKD) >90 (>60 ml/min/1.73 sqM); Potassium 4.3 mmol/L (3.5-5.1); Sodium 143 mmol/L (137-145)
[2024-04-20] MEDS: ONDANSETRON 4 MG/2 ML VIAL IVP PRN (14:24)
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
[2024-04-21] MEDS: THIAMINE 100 MG TAB PO SCH (08:12)
[2024-04-21 08:41] LABS: Basophils # (A) 0.03 X 10*3/uL (0.00-0.10); Basophils % (A) 0.5 %; Eosinophils # (A) 0.11 X 10*3/uL (0.04-0.35); Eosinophils % (A) 1.9 %; HCT 39.2 % (39.6-50.0); HGB 12.7 g/dL (13.0-17.0); Lymphocytes # (A) 1.45 X 10*3/uL (0.90-5.00); Lymphocytes % (A) 24.6 %; MCH 26.8 pg (27.0-32.0); MCHC 32.4 g/dL (32.0-37.0); MCV 82.9 FL (80.0-97.0); Mean Platelet Volume 11.5 FL (9.5-12.2); Monocytes # (A) 0.47 X 10*3/uL (0.20-1.00); NRBC Per 100 WBC 0 X 10*3/uL (0.00-0.01); Neutrophils # (A) 3.82 X 10*3/uL (1.80-7.70); Neutrophils % (A) 64.8 %; Platelet Count 242 X 10*3/uL (140-440); RBC 4.73 X 10*6/uL (4.40-5.60); RDW 13.8 % (11.5-14.5); WBC 5.89 X 10*3/uL (4.50-10.00)
--- NOTE | 2024-04-21 11:06 | P.PN ---
Subjective Progress Note Date: 04/21/24 This is a 63-year-old male patient who is being seen for acute ingestion of beta-blockers and the patient states that he has taken approximately 60 tablets of metoprolol and he believes the dose is around 25 mg. At the same time, the patient was drinking alcohol. He was feeling down. He was feeling depressed. Based on that, he ingested the medication immediately came into reverse department. He was treated with activated charcoal. He is known to have alcoholism and drinks around the fifth of vodka on a daily basis. Currently, is a bit shaky in the emergency department. No significant bradycardia. No significant hypotension. Awake and alert and communicating. He is known to have multiple comorbidities including history of congestion heart failure. Also has a type a dissection of the aortic arch which has not required any surgical intervention. He is known to have chronic atrial fibrillation maintained on anticoagulation and outpatient basis. He is also known to have COPD, chronic depression and HIV. He lives with his male partner. He is a bit anxious and shaky. His vesicles at 5.3 with a hemoglobin 9.4 and a platelet count of 325. Normal coagulation profile.. 23 creatinine 0.8 and sodium levels at 149 and a bicarb is at 23. Troponins are negative. LFTs are normal. The patient is currently off beta-blockers. He is receiving Ativan for DVT prophylaxis. He has been maintained on Biktarvy on outpatient basis. He has also been on an adequate management for CHF management including a combination of Entresto, Aldactone, metoprolol as beta-blockers and Jardiance. He has been also taking Bumex on outpatient basis 1 mg p.o. daily. He is maintained on amiodarone regarding his chronic A-fib 5 mg p.o. twice daily and anticoagulation with Eliquis. Most recent heart rate is 77. EKG is showing sinus rhythm with a heart rate of 89 with an old anteroseptal Q waves. The patient is seen today April 21, 2024 in follow-up in the emergency department. He is currently resting on a stretcher. Awake and alert in no acute distress. He is maintaining O2 saturations in the 90s on room air. He is afebrile. His heart rate is currently in the 70s. Blood pressure 145/77. White count 5.8. Hemoglobin 12.7. Platelets 242. He did receive activated charcoal. He remains on the CIWA protocol. Lovenox for DVT prophylaxis. merchandise handler remains at the bedside. The patient does meet inpatient psychiatric admission once medically stable. Objective - Vital Signs Vital signs: Vital Signs Temp 98.2 F 04/20/24 00:55 Pulse 73 04/21/24 07:24 Resp 18 04/21/24 07:24 BP 145/77 04/21/24 07:24 Pulse Ox 96 04/21/24 07:24 FiO2 - Exam GENERAL EXAM: Alert, 63-year-old male, on room air, comfortable in no apparent distress. HEAD: Normocephalic. EYES: Normal reaction of pupils, equal size. NOSE: Clear with pink turbinates. THROAT: No erythema or exudates. NECK: No masses, no JVD. CHEST: No chest wall deformity. LUNGS: Equal air entry with no crackles, wheeze, rhonchi or dullness. CVS: S1 and S2 normal with no audible murmur, regular rhythm. ABDOMEN: No hepatosplenomegaly, normal bowel sounds, no guarding or rigidity. SPINE: No scoliosis or deformity SKIN: No rashes CENTRAL NERVOUS SYSTEM: No focal deficits, tone is normal in all 4 extremities. EXTREMITIES: There is no peripheral edema. No clubbing, no cyanosis. Peripheral pulses are intact. - Labs CBC & Chem 7: 04/21/24 06:30 04/20/24 13:07 Labs: Abnormal Lab Results - Last 24 Hours (Table) 04/20/24 04/21/24 Range/Units 13:07 06:30 Hgb 12.7 L (13.0-17.0) g/dL Hct 39.2 L (39.6-50.0) % MCH 26.8 L (27.0-32.0) pg Chloride 111 H (98-107) mmol/L Creatinine 0.64 L (0.66-1.25) mg/dL Glucose 118 H (74-99) mg/dL Assessment and Plan Assessment: Acute drug overdose and the patient took a large quantity of beta-blockers in the form metoprolol 25 mg, probably an order of 60 tablets. Nevertheless, the patient underwent treatment with activated charcoal. No significant bradycardia or hemodynamic instability at this point in time. EKG showed no cardiac blocks and a cardiac rhythm is sinus and the patient is clinically and hemodynamically stable. Admits to suicide attempt. Acute alcohol intoxication, alcohol level 291 on arrival History of atrial fibrillation, maintained on amiodarone and beta-blockers on outpatient basis, anticoagulated with Eliquis Type A dissecting aortic aneurysm, treated conservatively History of mitral valve repair History of HIV maintained on Biktarvy antiretroviral treatment History of avascular necrosis of the hip and the patient underwent a left hip arthroplasty on 03/18/2024 COPD BPH Acid reflux Hypertension Chronic pain History of lumbar stenosis with spondylosis Glucoma Plan: The patient was seen and evaluated Labs and medications reviewed Stable and on room air Hemodynamically stable Cardiology consult pending Plan is for inpatient psych bed once cleared medically merchandise handler remains at the bedside No plans for ICU admission at this time We will continue to follow I have personally seen and examined the patient, performed the documentation and the assessment and plan as written. Number of minutes spent on the visit: 10 Dictation was produced using agreement24 [email or web address] dictation software. Please excuse any grammatical, word or spelling errors.
[2024-04-21 11:34] LABS: Calcium 9.2 mg/dL (8.7-10.3); Carbon Dioxide 18.7 mmol/L (21.6-31.8); Chloride 107 mmol/L (96-109); Glucose 97 mg/dL (70-110); Magnesium 1.5 mg/dL (1.5-2.4); Potassium 3.8 mmol/L (3.5-5.5); Sodium 144 mmol/L (135-145)
--- NOTE | 2024-04-21 15:21 | P.PN ---
Subjective Progress Note Date: 04/21/24 No new complaintts. Pending medical stabilization prior to transfer to [facility]. Gen: In NAD, non-toxic HEENT: normocephalic, atraumatic, hearing acuity is intant, mucous membranes moist CVS: perfusing all extremities well, no pitting edema, Respiratory: symmetric chest expansion, no accessory muscle use, GI: soft, NTTP, ND, : no suprapubic tenderness, no CVA tenderness MSK/Derm: no rashes, cyanosis Neuro: CN II-XII intact, no motor weakness, Psych: cooperative, euthymic mood, judgment and insight is intact Hospital course: Patient is a 63-year-old male with a PMH of A-fib on Eliquis, systolic CHF with EF 35 to 40%, stable type a aortic dissection following with urogram, EtOH abuse, and HIV who presents to the emergency room after an intentional overdose. EKG in emergency room revealed sinus rhythm with left axis deviation at 89 bpm with diffuse Q waves as reviewed by me. Chest x-ray revealed cardiomegaly without acute abnormalities. Laboratory evaluation revealed a serum alcohol lev el 291 with troponin less than 0.012 with hemoglobin 11.4, sodium 149, chloride 115, BUN 23, creatinine 0.84. Assessment: Intentional bta-trish overdose Alcohol abuse, impending withdrawal Hypochloremic hyponatremia Depression with suicidal ideation Chronic conditions: A-fib, systolic CHF, aortic dissection, HIV Plan: Patient currently asymptomatic S/p activaed charcoal Status post 1 L normal saline Judicious use of IV fluids in setting of CHF CIWA protocol Continue thiamine and multivitamin Fall and seizure precautions [facility] monitoring Psychiatry consulted, recommend transfer to [facility] on discharge Suicide precautions DVT prophylaxis: Lovenox Subq The patient is admitted with an anticipated greater midnight stay for evaluation of overdose CODE STATUS: Full Code Discussed with: Patient Anticipated discharge place: Home Objective - Vital Signs Vital signs: Vital Signs Temp 98.2 F 04/20/24 00:55 Pulse 73 04/21/24 07:24 Resp 18 04/21/24 07:24 BP 145/77 04/21/24 07:24 Pulse Ox 96 04/21/24 07:24 FiO2 - Labs CBC & Chem 7: 04/21/24 06:30 04/21/24 06:30 Labs: Abnormal Lab Results - Last 24 Hours (Table) 04/21/24 04/21/24 Range/Units 06:30 06:30 Hgb 12.7 L (13.0-17.0) g/dL Hct 39.2 L (39.6-50.0) % MCH 26.8 L (27.0-32.0) pg Carbon Dioxide 18.7 L (21.6-31.8) mmol/L Anion Gap 18.30 H (4.00-12.00) mmol/L
[2024-04-21] MEDS: LORazepam 2 MG/ML INJ IV PRN (18:40)
[2024-04-21] MEDS: oxyCODONE-APAP 10-325MG 1 EACH TAB PO PRN (20:07)
[2024-04-22] MEDS: chlordiazePOXIDE 25 MG CAP PO SCH (03:53)
[2024-04-22] MEDS: LORazepam 2 MG/ML INJ IV STA (03:53)
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
--- NOTE | 2024-04-22 12:39 | P.PN ---
Subjective Progress Note Date: 04/22/24 This is a 63-year-old male patient who is being seen for acute ingestion of beta-blockers and the patient states that he has taken approximately 60 tablets of metoprolol and he believes the dose is around 25 mg. At the same time, the patient was drinking alcohol. He was feeling down. He was feeling depressed. Based on that, he ingested the medication immediately came into reverse department. He was treated with activated charcoal. He is known to have alcoholism and drinks around the fifth of vodka on a daily basis. Currently, is a bit shaky in the emergency department. No significant bradycardia. No significant hypotension. Awake and alert and communicating. He is known to have multiple comorbidities including history of congestion heart failure. Also has a type a dissection of the aortic arch which has not required any surgical intervention. He is known to have chronic atrial fibrillation maintained on anticoagulation and outpatient basis. He is also known to have COPD, chronic depression and HIV. He lives with his male partner. He is a bit anxious and shaky. His vesicles at 5.3 with a hemoglobin 9.4 and a platelet count of 325. Normal coagulation profile.. 23 creatinine 0.8 and sodium levels at 149 and a bicarb is at 23. Troponins are negative. LFTs are normal. The patient is currently off beta-blockers. He is receiving Ativan for DVT prophylaxis. He has been maintained on Biktarvy on outpatient basis. He has also been on an adequate management for CHF management including a combination of Entresto, Aldactone, metoprolol as beta-blockers and Jardiance. He has been also taking Bumex on outpatient basis 1 mg p.o. daily. He is maintained on amiodarone regarding his chronic A-fib 5 mg p.o. twice daily and anticoagulation with Eliquis. Most recent heart rate is 77. EKG is showing sinus rhythm with a heart rate of 89 with an old anteroseptal Q waves. The patient is seen today April 21, 2024 in follow-up in the emergency department. He is currently resting on a stretcher. Awake and alert in no acute distress. He is maintaining O2 saturations in the 90s on room air. He is afebrile. His heart rate is currently in the 70s. Blood pressure 145/77. White count 5.8. Hemoglobin 12.7. Platelets 242. He did receive activated charcoal. He remains on the [facility] protocol. Lovenox for DVT prophylaxis. break out man remains at the bedside. The patient does meet inpatient psychiatric admission once medically stable. The patient is seen today April 22, 2024 in follow-up in the regular medical floor. He is currently sitting up in bed. Awake and alert in no acute distress. He is maintaining good O2 saturations in the 90s on room air. He has been hemodynamically stable. No new labs today. He remains on amiodarone. Anticoagulated with Eliquis. Continued off beta-blockers. Remains on the [facility]IP[facility] protocol. Objective - Vital Signs Vital signs: Vital Signs Temp 97.7 F 04/22/24 07:43 Pulse 73 04/22/24 07:43 Resp 14 04/22/24 07:43 BP 153/78 04/22/24 07:43 Pulse Ox 99 04/22/24 07:43 FiO2 Intake & Output 04/21/24 04/22/24 04/22/24 18:59 06:59 18:59 Intake Total 548 Balance 548 Weight 67 kg Intake: Oral 548 Other: # Voids 1 - Exam GENERAL EXAM: Alert, 63-year-old male, sitting up in bed, on room air, comfortable in no apparent distress. HEAD: Normocephalic. EYES: Normal reaction of pupils, equal size. NOSE: Clear with pink turbinates. THROAT: No erythema or exudates. NECK: No masses, no JVD. CHEST: No chest wall deformity. LUNGS: Equal air entry with no crackles, wheeze, rhonchi or dullness. CVS: S1 and S2 normal with no audible murmur, regular rhythm. ABDOMEN: No hepatosplenomegaly, normal bowel sounds, no guarding or rigidity. SPINE: No scoliosis or deformity SKIN: No rashes CENTRAL NERVOUS SYSTEM: No focal deficits, tone is normal in all 4 extremities. EXTREMITIES: There is no peripheral edema. No clubbing, no cyanosis. Peripheral pulses are intact. - Labs CBC & Chem 7: 04/21/24 06:30 04/21/24 06:30 Assessment and Plan Assessment: Acute drug overdose and the patient took a large quantity of beta-blockers in the form metoprolol 25 mg, probably an order of 60 tablets. Nevertheless, the patient underwent treatment with activated charcoal. No significant bradycardia or hemodynamic instability at this point in time. EKG showed no cardiac blocks and a cardiac rhythm is sinus and the patient is clinically and hemodynamically stable. Admits to suicide attempt. Acute alcohol intoxication, alcohol level 291 on arrival History of atrial fibrillation, maintained on amiodarone and beta-blockers on outpatient basis, anticoagulated with Eliquis Type A dissecting aortic aneurysm, treated conservatively History of mitral valve repair History of HIV maintained on Biktarvy antiretroviral treatment History of avascular necrosis of the hip and the patient underwent a left hip arthroplasty on 03/18/2024 COPD BPH Acid reflux Hypertension Chronic pain History of lumbar stenosis with spondylosis Glucoma Plan: The patient was seen and evaluated break out man remains at the bedside Medications reviewed Stable and on room air Hemodynamically stable Plan is for inpatient psychiatric admission Cleared for transfer once cleared by cardiology This patient was seen independently by the pulmonary/critical care nurse practitioner I have personally seen and examined the patient, performed the documentation and the assessment and plan as written. Number of minutes spent on the visit: 24 Dictation was produced using [employer] dictation software. Please excuse any grammatical, word or spelling errors.
--- NOTE | 2024-04-22 16:14 | P.PN ---
Subjective Progress Note Date: 04/22/24 63-year-old male with a PMH of A-fib on Eliquis, systolic CHF with EF 35 to 40%, stable type A aortic dissection, EtOH abuse, and HIV who presents to the emergency room after an intentional overdose. EKG in emergency room revealed sinus rhythm with left axis deviation at 89 bpm with diffuse Q waves. Chest x- ray revealed cardiomegaly without acute abnormalities. Laboratory evaluation revealed a serum alcohol level 291 with troponin less than 0.012 with hemoglobin 11.4, sodium 149, chloride 115, BUN 23, creatinine 0.84. 04/22 Patient was seen and examined. Reports symptoms of alcohol withdrawal. No longer suicidal. Sitter at bedside. HR in the 70s. General: non toxic, no distress, appears at stated age Derm: warm, dry Head: atraumatic, normocephalic, symmetric Eyes: EOMI, no lid lag, anicteric sclera Mouth: no lip lesion, mucus membranes moist Cardiovascular: S1S2 reg, no murmur Lungs: CTA bilateral, no rhonchi, no rales, no accessory muscle use Ext: no gross muscle atrophy, no edema, no contractures Neuro: no focal neuro deficits Psych: Alert, oriented, appropriate affect Based on my assessment of this patient, this patient meets a high complexity level of care. Intentional beta-trish overdose: Cardiology on board. Restart Metoprolol after 96H. Alcohol abuse, impending withdrawal: CIWA protocol with Ativan PRN per protocol. Depression with suicidal ideation: Sitter on board. Patient will need inpatient psychiatry. HIV: Restart Biktarvy and Prezcobix. Gout: Allopurinol 300 mg PO QD. Colchicine 0.6 mg PO BID. COPD: Not in acute exacerbation. Hypothyroidism: Synthroid 75 mcg PO QD. AFib: Amiodarone 200 mg PO QD. Eliquis 2.5 mg PO BID. CHF EF 35-40%: Farxiga 5 mg PO QD. Hold beta trish. Entresto 24-26mg PO BID. Aldactone 12.5 mg PO QD. CODE STATUS: FULL CODE DVT Prophylaxis: Eliquis GI Prophylaxis: Protonix Designated medical POA if patient is not able to make medical decisions for themselves: I have reviewed the following surgical consultant notes: Pulm, Cardio. I have reviewed the results of the following tests: No new labs done today. I have ordered the following tests: I have discussed the care of this patient with the following independent historian: I have independently interpreted the following test below: I have discussed the management of this patient with the following physician: Objective - Vital Signs Vital signs: Vital Signs Temp 97.7 F 04/22/24 07:43 Pulse 73 04/22/24 07:43 Resp 14 04/22/24 07:43 BP 153/78 04/22/24 07:43 Pulse Ox 99 04/22/24 07:43 FiO2 Intake & Output 04/21/24 04/22/24 04/22/24 18:59 06:59 18:59 Intake Total 548 Balance 548 Weight 67 kg Intake: Oral 548 Other: # Voids 1 - Labs CBC & Chem 7: 04/21/24 06:30 04/21/24 06:30
[2024-04-22] MEDS: APIXABAN 2.5 MG TABLET PO SCH (20:24)
[2024-04-22] MEDS: SACUBITRIL/VALSARTAN 24 MG-26 MG TABLET PO SCH (20:24)
[2024-04-22] MEDS: TAMSULOSIN 0.4 MG CAP.ER.24H PO SCH (20:24)
[2024-04-22] MEDS: AMIODARONE 200 MG TAB PO SCH (20:27)
[2024-04-23 04:47] VITALS: RESP 17
[2024-04-23] MEDS: PANTOPRAZOLE 40 MG TABLET PO SCH (06:07)
[2024-04-23] MEDS: LEVOTHYROXINE 100 MCG TAB PO SCH (06:08)
[2024-04-23] MEDS: COBICISTAT PO SCH (08:09)
[2024-04-23] MEDS: DARUNAVIR PO SCH (08:09)
[2024-04-23] MEDS: NON FORMULARY DRUG (Bictegrav/Emtricit/Tenofov Ala [Biktarvy 50-200-25 Mg Tablet] 1 EACH T PO SCH (08:09)
[2024-04-23] MEDS: [UNRECOGNIZED DRUG - OTHER] PO SCH (08:09)
[2024-04-23] MEDS: ATORVASTATIN 80 MG TAB PO SCH (08:18)
[2024-04-23] MEDS: FENOFIBRATE 54 MG TAB PO SCH (08:18)
[2024-04-23] MEDS: DAPAGLIFLOZIN PROPANEDIOL 5 MG TABLET PO SCH (08:18)
[2024-04-23] MEDS ORDERED: COLCHICINE 0.6 MG EACH PO PRN (08:18)
[2024-04-23] MEDS ORDERED: IPRATROPIUM-ALBUTEROL 3 ML NEB INHALATION PRN (08:18)
[2024-04-23] MEDS ORDERED: BUMETANIDE 1 MG TAB PO PRN (08:18)
[2024-04-23] MEDS: SPIRONOLACTONE 25 MG TAB PO SCH (08:18)
[2024-04-23] MEDS: METOPROLOL TARTRATE 25 MG TAB PO SCH (09:21)
[2024-04-23] MEDS: allopurinoL 100 MG TAB PO SCH (09:21)
--- NOTE | 2024-04-23 11:47 | P.DS ---
Providers Date of admission: 04/20/24 04:33 Expected date of discharge: 04/23/24 Attending physician: Ciera Sanchez MD Consults: 04/20/24 04:33 Consult Physician Stat Consulting Provider: Demetri Mendiola Consult Reason/Comments: Overdose Do you want consulting provider notified?: Yes 04/20/24 04:45 Consult Physician Urgent Consulting Provider: Levy Peña Consult Reason/Comments: Depression with intentional overdose Do you want consulting provider notified?: Yes, Notify in am 04/21/24 08:34 Consult Physician Routine Consulting Provider: Sergo Morales Consult Reason/Comments: Metoprolol overdose Do you want consulting provider notified?: Yes Primary care physician: [facility] Course: 63-year-old male with a PMH of A-fib on Eliquis, systolic CHF with EF 35 to 40%, stable type A aortic dissection, EtOH abuse, and HIV who presents to the emergency room after an intentional overdose. EKG in emergency room revealed sinus rhythm with left axis deviation at 89 bpm with diffuse Q waves. Chest x- ray revealed cardiomegaly without acute abnormalities. Laboratory evaluation revealed a serum alcohol level 291 with troponin less than 0.012 with hemoglobin 11.4, sodium 149, chloride 115, BUN 23, creatinine 0.84. Patient was admitted for beta trish OD. Psyc consulted, recommended inpatient psyc. Cardiology consulted, Metoprolol held for 96H, no bradycardia or AV block on telemetry and re-started. 04/23 Patient was seen and examined. Requests Ativan. Denies any active SI. HR in the 70s on telemetry. General: non toxic, no distress, appears at stated age Derm: warm, dry Head: atraumatic, normocephalic, symmetric Eyes: EOMI, no lid lag, anicteric sclera Mouth: no lip lesion, mucus membranes moist Cardiovascular: S1S2 reg, no murmur Lungs: CTA bilateral, no rhonchi, no rales, no accessory muscle use Ext: no gross muscle atrophy, no edema, no contractures Neuro: no focal neuro deficits Psych: Alert, oriented, appropriate affect Discharge Diagnosis: Intentional beta-trish overdose Alcohol abuse, impending withdrawal Depression with suicidal ideation HIV Gout COPD Hypothyroidism AFib CHF EF 35-40% This complex discharge took 35 minutes to complete. Patient Condition at Discharge: Stable Plan - Discharge Summary Discharge Rx Participant: Yes New Discharge Prescriptions: Continue Ondansetron [Zofran ODT] 8 mg PO BID PRN PRN Reason: Nausea And Vomiting Darunavir/Cobicistat [Prezcobix 800 mg-150 mg Tablet] 1 tab PO DAILY Ipratropium-Albuterol Nebulize [Duoneb 0.5 mg-3 mg/3 ml Soln] 3 ml INHALATION RT-BID PRN PRN Reason: Shortness Of Breath Albuterol Sulfate [Albuterol Sulfate Hfa] 1 - 2 puff INHALATION RT-QID PRN PRN Reason: Shortness Of Breath Sacubitril/Valsartan [Entresto 24 mg-26 mg Tablet] 1 tab PO BID hydrOXYzine HCL 10 mg PO Q6H PRN PRN Reason: Itching Pantoprazole [Protonix] 40 mg PO DAILY Levothyroxine Sodium 200 mcg PO DAILY Colchicine 0.6 mg PO DIRECTED PRN PRN Reason: gout flare Gabapentin 600 mg PO TID Bumetanide [BUMEX] 1 mg PO DAILY PRN PRN Reason: weight gain Apixaban [Eliquis] 2.5 mg PO BID Thiamine [Vitamin B-1] 100 mg PO DAILY #60 tab Bictegrav/Emtricit/Tenofov Ala [Biktarvy 50-200-25 mg Tablet] 1 tab PO DAILY Tamsulosin HCl [Flomax] 0.4 mg PO HS Empagliflozin [Jardiance] 10 mg PO DAILY Rosuvastatin Calcium 40 mg PO DAILY Fenofibrate Nanocrystallized [Fenofibrate] 48 mg PO DAILY oxyCODONE-APAP 10-325MG [Percocet 10-325 mg] 1 tab PO Q6HR PRN 3 Days #12 tab PRN Reason: Pain Bimatoprost [Lumigan 0.01% Ophth Soln] 1 drop BOTH EYES HS allopurinoL 100 mg PO DAILY Amiodarone [Cordarone] 400 mg PO BID #60 tab Metoprolol Tartrate [Lopressor] 25 mg PO BID #60 tab Spironolactone [Aldactone] 12.5 mg PO DAILY #30 tab Discharge Medication List Ondansetron [Zofran ODT] 8 mg PO BID PRN 05/18/18 [History] Bictegrav/Emtricit/Tenofov Ala [Biktarvy 50-200-25 mg Tablet] 1 tab PO DAILY 09/07/21 [History] Darunavir/Cobicistat [Prezcobix 800 mg-150 mg Tablet] 1 tab PO DAILY 09/07/22 [History] Ipratropium-Albuterol Nebulize [Duoneb 0.5 mg-3 mg/3 ml Soln] 3 ml INHALATION RT-BID PRN 10/23/23 [History] Albuterol Sulfate [Albuterol Sulfate Hfa] 1 - 2 puff INHALATION RT-QID PRN [History] Empagliflozin [Jardiance] 10 mg PO DAILY 12/27/23 [History] Sacubitril/Valsartan [Entresto 24 mg-26 mg Tablet] 1 tab PO BID 12/27/23 [History] Tamsulosin HCl [Flomax] 0.4 mg PO HS 12/27/23 [History] Fenofibrate Nanocrystallized [Fenofibrate] 48 mg PO DAILY 03/17/24 [History] Levothyroxine Sodium 200 mcg PO DAILY 03/17/24 [History] Pantoprazole [Protonix] 40 mg PO DAILY 03/17/24 [History] Rosuvastatin Calcium 40 mg PO DAILY 03/17/24 [History] hydrOXYzine HCL 10 mg PO Q6H PRN 03/17/24 [History] oxyCODONE-APAP 10-325MG [Percocet 10-325 mg] 1 tab PO Q6HR PRN 3 Days #12 tab 03/20/24 [Rx] Apixaban [Eliquis] 2.5 mg PO BID 04/03/24 [History] Bimatoprost [Lumigan 0.01% Ophth Soln] 1 drop BOTH EYES HS 04/03/24 [History] Bumetanide [BUMEX] 1 mg PO DAILY PRN 04/03/24 [History] Colchicine 0.6 mg PO DIRECTED PRN 04/03/24 [History] Gabapentin 600 mg PO TID 04/03/24 [History] allopurinoL 100 mg PO DAILY 04/03/24 [History] Amiodarone [Cordarone] 400 mg PO BID #60 tab 04/12/24 [Rx] Metoprolol Tartrate [Lopressor] 25 mg PO BID #60 tab 04/12/24 [Rx] Spironolactone [Aldactone] 12.5 mg PO DAILY #30 tab 04/12/24 [Rx] Thiamine [Vitamin B-1] 100 mg PO DAILY #60 tab 04/12/24 [Rx] Follow up Appointment(s)/Referral(s): Girma Malone MD [Primary Care Provider] - 1-2 days Discharge Disposition: TRANSFER TO PSYCH HOSP/UNIT
--- NOTE | 2024-04-23 12:00 | P.PN ---
Subjective HISTORY OF PRESENT ILLNESS: This is a 63-year-old male with a past medical history significant for coronary artery disease, valvular heart disease status post mitral valve repair, chronic ascending aortic dissection, ascending aortic aneurysm, paroxysmal atrial fibrillation, cardiomyopathy, hypertension, hyperlipidemia, alcohol abuse, and HIV. Patient follows in the office with Dr. Morales. We have been asked to see the patient in consultation for metoprolol overdose. Patient examined at the bedside. Patient is admitted to the hospital due to an intentional overdose. Patient reportedly took a 3-week supply of metoprolol and drink vodka. Alcohol on admission was 291. Patient examined this morning the bedside. Patient currently denies chest pain or pressure. He denies shortness of breath. He states that he recently was evaluated at the [facility] and he was told there was nothing further they could do for his ascending aorta. Telemetry has been reviewed. Patient remains in sinus mechanism with heart rate in the 70 s to 80s. No significant bradycardia or AV block's have been noted. DIAGNOSTICS: - EKG reveals sinus mechanism with no signs of acute ischemia. Heart rate 89. - Chest xray cardiomegaly without acute pulmonary process - Laboratory data: WBC 5.89. Hemoglobin 12.7. Platelet count 242. Sodium 144. Potassium 3.8. BUN 14. Creatinine 0.8. Troponin negative x 1. - Current home cardiac medications include Bumex 1 mg daily as needed, amiodarone 400 mg twice a day, Eliquis 2.5 mg twice a day, Jardiance 10 mg daily, metoprolol tartrate 25 mg twice a day, rosuvastatin 40 mg daily, Entresto 24-26 mg twice a day, Aldactone 12.5 mg daily - Most recent echocardiogram obtained on 04/08/2024 revealed ejection fraction 35 to 40%, moderate MR, severe AR and aortic dissection flap noticed in ascending aorta. 04/23/2024 Patient examined this morning at bedside. assemblyman or woman is present. Patient currently denies chest pain or pressure. He denies shortness of breath. Telemetry reveals sinus mechanism with a heart rate in the 70s. Blood pressure stable at 147/67. He has been resumed on his metoprolol per primary medicine.. PHYSICAL EXAM: VITAL SIGNS: Reviewed. GENERAL: Well-developed in no acute distress. HEENT: Head is normocephalic. Pupils are equal, round. Sclerae anicteric. Mucous membranes of the mouth are moist. Neck supple. No JVD or thyromegaly LUNGS: Respirations even and unlabored. Lungs essentially clear to auscultation bilaterally. HEART: Regular rate and rhythm. S1 and S2 heard. Systolic murmur noted ABDOMEN: Soft. Nondistended. Nontender. EXTREMITIES: Normal range of motion. No clubbing or cyanosis. Peripheral pulses intact. No lower extremity edema NEUROLOGIC: Awake and alert. Oriented x 3. ASSESSMENT: Intentional overdose; patient consumed liquor and 3-week supply of metoprolol Suicidal ideation Acute alcohol intoxication Chronic ascending aortic dissection Ascending aortic aneurysm Valvular heart disease status post mitral valve repair Paroxysmal atrial fibrillation Coronary artery disease, coronary CTA revealed 70% disease involving proximal LAD Nonischemic cardiomyopathy, EF 35 to 40% Hypertension Hyperlipidemia History of alcohol abuse History of HIV PLAN: No need to repeat echocardiogram as this was performed earlier this month Continue current cardiac medications Patient has been resumed on metoprolol per internal medicine Patient is stable for discharge from a cardiac standpoint We will sign off. Please reconsult if needed. Nurse practitioner note has been reviewed by physician. Signing provider agrees with the documented findings, assessment, and plan of care documented by RADIAL ARM SAW OPERATOR as a scribe. Objective - Vital Signs Vital signs: Vital Signs Temp 97.5 F L 04/23/24 07:39 Pulse 71 04/23/24 07:39 Resp 17 04/23/24 01:51 BP 147/67 04/23/24 07:39 Pulse Ox 96 04/23/24 07:39 FiO2 Intake & Output 04/22/24 04/23/24 04/23/24 18:59 06:59 18:59 Intake Total 548 Balance 548 Weight 80.6 kg Intake: Oral 548 Other: # Voids 1 - Labs CBC & Chem 7: 04/21/24 06:30 04/21/24 06:30
--- NOTE | 2024-04-23 12:11 | P.PN ---
Subjective Progress Note Date: 04/23/24 This is a 63-year-old male patient who is being seen for acute ingestion of beta-blockers and the patient states that he has taken approximately 60 tablets of metoprolol and he believes the dose is around 25 mg. At the same time, the patient was drinking alcohol. He was feeling down. He was feeling depressed. Based on that, he ingested the medication immediately came into reverse department. He was treated with activated charcoal. He is known to have alcoholism and drinks around the fifth of vodka on a daily basis. Currently, is a bit shaky in the emergency department. No significant bradycardia. No significant hypotension. Awake and alert and communicating. He is known to have multiple comorbidities including history of congestion heart failure. Also has a type a dissection of the aortic arch which has not required any surgical intervention. He is known to have chronic atrial fibrillation maintained on anticoagulation and outpatient basis. He is also known to have COPD, chronic depression and HIV. He lives with his male partner. He is a bit anxious and shaky. His vesicles at 5.3 with a hemoglobin 9.4 and a platelet count of 325. Normal coagulation profile.. 23 creatinine 0.8 and sodium levels at 149 and a bicarb is at 23. Troponins are negative. LFTs are normal. The patient is currently off beta-blockers. He is receiving Ativan for DVT prophylaxis. He has been maintained on Biktarvy on outpatient basis. He has also been on an adequate management for CHF management including a combination of Entresto, Aldactone, metoprolol as beta-blockers and Jardiance. He has been also taking Bumex on outpatient basis 1 mg p.o. daily. He is maintained on amiodarone regarding his chronic A-fib 5 mg p.o. twice daily and anticoagulation with Eliquis. Most recent heart rate is 77. EKG is showing sinus rhythm with a heart rate of 89 with an old anteroseptal Q waves. The patient is seen today April 21, 2024 in follow-up in the emergency department. He is currently resting on a stretcher. Awake and alert in no acute distress. He is maintaining O2 saturations in the 90s on room air. He is afebrile. His heart rate is currently in the 70s. Blood pressure 145/77. White count 5.8. Hemoglobin 12.7. Platelets 242. He did receive activated charcoal. He remains on the CIWA protocol. Lovenox for DVT prophylaxis. flexible babysitter remains at the bedside. The patient does meet inpatient psychiatric admission once medically stable. The patient is seen today April 22, 2024 in follow-up in the regular medical floor. He is currently sitting up in bed. Awake and alert in no acute distress. He is maintaining good O2 saturations in the 90s on room air. He has been hemodynamically stable. No new labs today. He remains on amiodarone. Anticoagulated with Eliquis. Continued off beta-blockers. Remains on the CIWA protocol. The patient is seen today April 23, 2024 in follow-up on the regular medical floor. He is awake and alert in no acute distress. Sitting up in bed. Denies any worsening shortness of breath, cough or congestion. No chest pain. He is maintaining good O2 saturations in the upper 90s on room air. He has been afebrile. Hemodynamically stable. He remains on amiodarone and anticoagulated with Eliquis. Remains on the CIDE protocol. Objective - Vital Signs Vital signs: Vital Signs Temp 97.5 F L 04/23/24 07:39 Pulse 71 04/23/24 07:39 Resp 17 04/23/24 01:51 BP 147/67 04/23/24 07:39 Pulse Ox 96 04/23/24 07:39 FiO2 Intake & Output 04/22/24 04/23/24 04/23/24 18:59 06:59 18:59 Intake Total 548 Balance 548 Weight 80.6 kg Intake: Oral 548 Other: # Voids 1 - Exam GENERAL EXAM: Alert, 63-year-old male, on room air, in no apparent distress. HEAD: Normocephalic. EYES: Normal reaction of pupils, equal size. NOSE: Clear with pink turbinates. THROAT: No erythema or exudates. NECK: No masses, no JVD. CHEST: No chest wall deformity. LUNGS: Equal air entry with no crackles, wheeze, rhonchi or dullness. CVS: S1 and S2 normal with no audible murmur, regular rhythm. ABDOMEN: No hepatosplenomegaly, normal bowel sounds, no guarding or rigidity. SPINE: No scoliosis or deformity SKIN: No rashes CENTRAL NERVOUS SYSTEM: No focal deficits, tone is normal in all 4 extremities. EXTREMITIES: There is no peripheral edema. No clubbing, no cyanosis. Perip heral pulses are intact. - Labs CBC & Chem 7: 04/21/24 06:30 04/21/24 06:30 Assessment and Plan Assessment: Acute drug overdose and the patient took a large quantity of beta-blockers in the form metoprolol 25 mg, probably an order of 60 tablets. Nevertheless, the patient underwent treatment with activated charcoal. No significant bradycardia or hemodynamic instability at this point in time. EKG showed no cardiac blocks and a cardiac rhythm is sinus and the patient is clinically and hemodynamically stable. Admits to suicide attempt. Acute alcohol intoxication, alcohol level 291 on arrival History of atrial fibrillation, maintained on amiodarone and beta-blockers on outpatient basis, anticoagulated with Eliquis Type A dissecting aortic aneurysm, treated conservatively History of mitral valve repair History of HIV maintained on Biktarvy antiretroviral treatment History of avascular necrosis of the hip and the patient underwent a left hip arthroplasty on 03/18/2024 COPD BPH Acid reflux Hypertension Chronic pain History of lumbar stenosis with spondylosis Glucoma Plan: The patient was seen and evaluated flexible babysitter remains at the bedside Medications reviewed Stable and on room air Hemodynamically stable Plan is for inpatient psychiatric admission This patient was seen independently by the pulmonary/critical care nurse practitioner I have personally seen and examined the patient, performed the documentation and the assessment and plan as written. Number of minutes spent on the visit: 22 Dictation was produced using [employer] dictation software. Please excuse any grammatical, word or spelling errors.
[2024-04-23 13:03] VITALS: BP 114/63; PULSE 66; TEMP 97.4
[2024-04-23] MEDS ORDERED: LATANOPROST 0.005% OPHTH DROPS 2.5 ML BTL BOTH EYES SCH (21:00)
== END 2024-04-23 16:36 | DRG 917 ==
LOC: EC 00:52 → 4SSUR 04:33
PROVIDERS: ADMIT Internal Medicine; ATTEND Internal Medicine
DX: T44.7X2A Poisoning by beta-adrenoreceptor antagonists, intentional self-harm, initial encounter (principal); I71.011 Dissection of aortic arch; E87.1 Hypo-osmolality and hyponatremia; I50.22 Chronic systolic (congestive) heart failure; F10.24 Alcohol dependence with alcohol-induced mood disorder; F11.20 Opioid dependence, uncomplicated; I42.8 Other cardiomyopathies; I11.0 Hypertensive heart disease with heart failure; F10.229 Alcohol dependence with intoxication, unspecified; Z21 Asymptomatic human immunodeficiency virus [HIV] infection status; I48.0 Paroxysmal atrial fibrillation; I71.21 Aneurysm of the ascending aorta, without rupture; F32.A Depression, unspecified; J44.89 Other specified chronic obstructive pulmonary disease; E03.9 Hypothyroidism, unspecified; E78.5 Hyperlipidemia, unspecified; I25.10 Atherosclerotic heart disease of native coronary artery without angina pectoris; K21.9 Gastro-esophageal reflux disease without esophagitis; M47.816 Spondylosis without myelopathy or radiculopathy, lumbar region; M48.061 Spinal stenosis, lumbar region without neurogenic claudication; H40.9 Unspecified glaucoma; N40.0 Benign prostatic hyperplasia without lower urinary tract symptoms; G89.4 Chronic pain syndrome; E87.8 Other disorders of electrolyte and fluid balance, not elsewhere classified; Z79.01 Long term (current) use of anticoagulants; Z96.642 Presence of left artificial hip joint; Y90.8 Blood alcohol level of 240 mg/100 ml or more; Z79.84 Long term (current) use of oral hypoglycemic drugs; Z79.890 Hormone replacement therapy; Z86.79 Personal history of other diseases of the circulatory system; Z87.891 Personal history of nicotine dependence; Z79.899 Other long term (current) drug therapy; Z81.1 Family history of alcohol abuse and dependence; Z91.410 Personal history of adult physical and sexual abuse; Z91.51 Personal history of suicidal behavior; Z87.39 Personal history of other diseases of the musculoskeletal system and connective tissue
CPT/HCPCS: 36415; 71045; 80048; 80053; 80143; 80179; 80306; 80320; 82075; 83605; 83735; 84484; 85025; 85610; 85730; 87636; 93005; 96361; 96372; 96375; 96376; 99291

== ENCOUNTER 2024-04-23 14:42 | Inpatient (IN) | payer MEDICARE, MEDICAID ==
[2024-04-23] MEDS ORDERED: ALBUTEROL INHALER 60 PUFF/8 GM INHALER (MHU) INHALATION PRN (15:40)
[2024-04-23] MEDS ORDERED: BUMETANIDE 1 MG TAB PO PRN (15:40)
[2024-04-23] MEDS ORDERED: IPRATROPIUM-ALBUTEROL 3 ML NEB INHALATION PRN (15:40)
[2024-04-23] MEDS ORDERED: COLCHICINE 0.6 MG EACH PO PRN (15:40)
[2024-04-23] MEDS ORDERED: MAG HYDROX/AL HYDROX/SIMETH 355 ML BOTTLE PO PRN (15:45)
[2024-04-23] MEDS ORDERED: LORazepam 1 MG TAB PO PRN (15:45)
[2024-04-23] MEDS ORDERED: MAGNESIUM HYDROXIDE 2,400 MG/30 ML CUP PO PRN (15:45)
[2024-04-23] MEDS: GABAPENTIN 300 MG CAP PO SCH (17:19)
[2024-04-23] MEDS: chlordiazePOXIDE 25 MG CAP PO SCH (17:53)
[2024-04-23] MEDS: LATANOPROST 0.005% OPHTH DROPS 2.5 ML BTL BOTH EYES SCH (20:36)
[2024-04-23] MEDS: AMIODARONE 200 MG TAB PO SCH (20:37)
[2024-04-23] MEDS: APIXABAN 2.5 MG TABLET PO SCH (20:37)
[2024-04-23] MEDS: SACUBITRIL/VALSARTAN 24 MG-26 MG TABLET PO SCH (20:38)
[2024-04-23] MEDS: METOPROLOL TARTRATE 25 MG TAB PO SCH (20:38)
[2024-04-23] MEDS: TAMSULOSIN 0.4 MG CAP.ER.24H PO SCH (20:38)
[2024-04-23] MEDS: LORazepam 1 MG TAB PO PRN (20:43)
[2024-04-23] MEDS: hydrOXYzine HCL 10 MG TAB PO PRN (21:46)
[2024-04-23] MEDS: oxyCODONE-APAP 10-325MG 1 EACH TAB PO PRN (21:47)
[2024-04-24] MEDS: LEVOTHYROXINE 100 MCG TAB PO SCH (06:17)
[2024-04-24] MEDS: ONDANSETRON ODT 8 MG TAB.RAPDIS PO PRN (06:23)
[2024-04-24] MEDS: SPIRONOLACTONE 25 MG TAB PO SCH (08:30)
[2024-04-24] MEDS: DAPAGLIFLOZIN PROPANEDIOL 5 MG TABLET PO SCH (08:32)
[2024-04-24] MEDS: PANTOPRAZOLE 40 MG TABLET PO SCH (08:32)
[2024-04-24] MEDS: FENOFIBRATE 54 MG TAB PO SCH (08:32)
[2024-04-24] MEDS: ATORVASTATIN 80 MG TAB PO SCH (08:32)
[2024-04-24] MEDS: THIAMINE 100 MG TAB PO SCH (08:32)
[2024-04-24] MEDS: [UNRECOGNIZED DRUG - OTHER] PO SCH (08:36)
[2024-04-24] MEDS: COBICISTAT PO SCH ×2 (08:36→18:12)
[2024-04-24] MEDS: DARUNAVIR PO SCH ×2 (08:36→18:12)
[2024-04-24] MEDS: allopurinoL 100 MG TAB PO SCH (08:46)
[2024-04-24 09:31] LABS: Chol/HDL Ratio 2.63 Ratio; LDL Cholesterol,Calculated 88.6 mg/dL (0.0-131.0); VLDL Calculation 19.84 mg/dL (5.00-40.00)
[2024-04-24] MEDS: DULoxetine HCL 30 MG CAPSULE.DR PO SCH (11:55)
--- NOTE | 2024-04-24 12:16 | P.HP ---
Psychiatric H&P - . H&P Date: 04/24/24 History & Physical: Allergies Allergy/AdvReac Type Severity Reaction Status Date / Time abacavir from Ziagen Allergy Anaphylaxis Verified 04/23/24 17:17 efavirenz from Sustiva Allergy Anaphylaxis Verified 04/23/24 17:17 levofloxacin Allergy Itching Verified 04/23/24 17:17 hydrocodone AdvReac Rapid Verified 04/23/24 17:17 From [facility] Heart Rate morphine AdvReac Itching Verified 04/23/24 17:17 sulfamethoxazole AdvReac HIGH Verified 04/23/24 17:17 From Bactrim CREATININE LEVEL trimethoprim from Bactrim AdvReac HIGH Verified 04/23/24 17:17 CREATININE Vital Signs Temp 96.9 F L 04/24/24 05:34 Pulse 75 04/24/24 10:23 Resp 16 04/24/24 05:34 BP 129/73 04/24/24 10:23 Pulse Ox 100 04/24/24 05:34 FiO2 Intake & Output 04/23/24 04/24/24 04/24/24 18:59 06:59 18:59 Weight 80.6 kg Laboratory Last Values Estimated Ave Glu mg/dL 103 mg/dL 04/23/24 08:00 Hemoglobin A1c 5.2 % (<=6.0) 04/23/24 08:00 Triglycerides 99.20 mg/dL (0.00-149.00) 04/23/24 08:00 Cholesterol 175.00 mg/dL (0.00-200.00) 04/23/24 08:00 LDL Cholesterol, Calc 88.6 mg/dL (0.0-131.0) 04/23/24 08:00 VLDL Cholesterol, Calc 19.84 mg/dL (5.00-40.00) 04/23/24 08:00 HDL Cholesterol 66.60 mg/dL (40.00-60.00) H 04/23/24 08:00 Cholesterol/HDL Ratio 2.63 Ratio 04/23/24 08:00 TSH 3.510 mIU/L (0.465-4.680) 04/23/24 08:00 04/24/24 10:41 IDENTIFYING DATA: Patient is a 63-year-old male, on disability currently living in [place] with his CHIEF COMPLAINT: Suicide attempt via OD on metoprolol HPI: Patient presented to the hospital on 04/20 after reportedly ingesting 60 tabs of metoprolol along with alcohol. Patient's alcohol level on admission was 291 and he was started on CIWA protocol and admitted to the ICU. Patient reportedly has been drinking 1/5 of vodka per day for the past month. Patient seen and evaluated on the unit and was agreeable to speak to chart writer in the office. He states he has been overwhelmed recently due to him finding out he has a torn aorta and his being sick recently. He states back in November he spent 6 days at [facility] due to chest pain however they did not do anything for him. He ultimately went elsewhere where they discovered stable but chronic ascending aorta however he expresses frustration with the care he has been receiving. He states his recently had to get a bone marrow biopsy due to abnormalities found on his lab. He states he was not sleeping due to racing thoughts and he was drinking heavily for the past month, specifically 1/5 of hard liquor per day. He vehemently denies any history of heavy alcohol use and he states he is able to stop whenever he wants and that he has control over his drinking. He denied any prior rehab and is not interested at the moment. He states on the day of the attempt he ingested metoprolol along with alcohol however he immediately caught his as he realized he had made a mistake. He states being happy that the attempt was not successful. He reports feelings of helplessness however denied any appetite or energy changes. He reports anxiety that appears more generalized in nature along with racing thoughts and feeling on edge. He reports chronic tremors of his hand to which she sees a neurologist for. He reports ongoing alcohol withdrawal symptoms however states they are less severe and improving daily with CIWA protocol. Patient denies any suicidal or homicidal ideations intent or plan. At this time patient denies any auditory or visual hallucinations. Patient denies any history of flight of ideas racing thoughts and increased in goal directed behavior. PAST PSYCHIATRIC HISTORY: Patient has a history of depression and anxiety. He reports previously trialing Lexapro, Zoloft, Paxil. Patient denies any previous psychiatric hospitalizations. Patient denies any psychiatric outpatient follow- up. Patient reports 1 prior suicide attempt roughly 4 years ago via OD however was not admitted inpatient for this. PMH: as per ER note Past Medical History: Atrial Fibrillation, Asthma, Heart Failure, Fibromyalgia, GERD/Reflux, Hypertension, Prostate Disorder Additional Past Medical History / Comment(s): Mitral valve disease w/ MV repair at [facility] 2000, HIV positive, past HTN and recently low blood pressures, BPH, R ankle gout, chronic nausea, bilateral glaucoma, chronic pain syndrome, chronic low back and bilateral hip pain and occasional cervical pain, DDD, lumbar steno sis/spondylosis, abdominal hernia, previous history of drug overdose. PTSD ALLERGIES: as per EMR SUBSTANCE USE HISTORY: Patient denied any nicotine or cannabis use however has been drinking 1/5 of hard liquor daily for the past month FAMILY PSYCHIATRIC/SUBSTANCE USE HISTORY: Patient reports a strong family history of alcohol use and states that he felt like his brother might of had bipolar disorder SOCIAL HISTORY: Patient was born and raised in [place]. He has been to his for 33 years and has no children. He completed schooling up to the 10th grade. He is currently on disability and retired. MENTAL STATUS EXAM: General Appearance: Patient appears to be stated age is alert, directable, and attempts to cooperate. Patient appears to have fair hygiene and grooming. Patient wears glasses and has short dykes hair Behavior: Patient is seated without any agitated behavior. Patient ambulates via walker Speech: Patient's speech is fluent and nonpressured. Mood/Affect: Patient reports their mood is depressed, affect is congruent and constricted. Suicidality/Homicidality: Patient denies having any homicidal ideation intent or plan. Denies any suicidal ideations intent or plan Perceptions: Patient denies any visual hallucinations and denies any auditory hallucinations Though content/process: There is no evidence of any delusional thought content and thought process is circumstantial. Memory and concentration: AOX3, grossly intact for the purposes of this session. Can spell "WORLD" backwards Judgment and insight: Poor STRENGTHS/WEAKNESSES: strength is that patient is resilient and reports support from his . Weakness is that patient has poor judgment, drinks alcohol heavily and is impulsive INTELLECT: Average IMPRESSIONS: Suicide attempt via overdose on metoprolol Major depressive disorder, recurrent, severe Alcohol use disorder, severe in withdrawal Generalized anxiety disorder PLAN: -Patient is admitted under voluntary status to MHU for stabilization of psychiatric symptoms and safety. Patient has signed adult voluntary form and medication consent and is placed in patient's chart. -Medications : Start Cymbalta 30 mg daily for depression/anxiety, Vistaril 25 mg at bedtime for sleep -Ativan and Haldol PRN for agitation/aggression -Started thiamine, MVM for etoh use -CIWA protocol with Ativan PRN for ETOH withdrawal. Scheduled Librium for alcohol withdrawal with plan to taper. -Patient was counselled on substance abuse and desired to cut back on use-Will offer patient subtance use rehab however patient was not interested today -Patient was informed of the risks, benefits and side effects of the medication and patient verbally consented to taking the medications. Patient signed med consent form and was placed in chart. -Internal Medicine consult to perform medical evaluation and physical. -NRT -not needed as patient does not smoke -SW on board for discharge planning. Encourage patient to participate in groups to work on coping skills. 04/24/24 12:05
[2024-04-24] MEDS: Bictegrav/Emtricit/Tenofov Ala [Biktarvy 50-200-25 Mg Tablet] 1 EACH T PO SCH (18:12)
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
[2024-04-24] MEDS: hydrOXYzine pamoate 25 MG CAP PO SCH (21:10)
--- NOTE | 2024-04-25 11:06 | P.PN ---
Progress Note - Text Progress Note Date: 04/25/24 Interval History: Patient was seen in groups and was directable and agreeable to speak with copy writer in the office. He states feeling better today however he reports adverse effects from Cymbalta. He states shortly after taking it yesterday, he noticed some mind fogginess, nausea, and difficulties with concentration. He states sleeping really well last night. Patient notably appeared more bright and reactive in affect and was future oriented today, stating he recently ordered a new computer that just came in today and he was looking forward to using it when he gets out of here. He talked about how Anil is his favorite time of year and he ordered his 's gift and finished his [place] shopping for the year. He denied any withdrawal symptoms and was adamant about not using alcohol when he returns home. He states speaking to his and that his threw all of his alcohol away and cigarettes as he is motivated to no longer smoke as well. Patient's blood pressure was low today and patient was reporting lightheadedness and he was encouraged to increase his fluid intake as this has been poor. Patient states previously having a good response to Lexapro and he was agreeable to starting this medication and replacement of Cymbalta given adverse effects. He denied any alcohol cravings. At this time patient denies any suicidal or homicidal ideations, intent or plan. Patient denies any auditory, visual hallucinations and denies any paranoia or delusions. Patient has been compliant with meds. Mental Status Exam: General Appearance: Patient appears to be stated age is alert, directable, and cooperative. Patient has short dykes hair and wears glasses Behavior: Patient is calmly seated without any agitated behavior. Patient ambulates via walker Speech: Patient's speech is fluent and nonpressured. Mood/Affect: Mood is improving mildly, affect is congruent and reactive but blunted. Suicidality/Homicidality: Patient denies having any suicidal or homicidal ideation intent or plan. Perceptions: Patient denies any visual hallucinations and denies any auditory hallucinations Though content/process: There is no evidence of any delusional thought content and thought process is linear and goal-directed. Memory and concentration: AOX3, grossly intact for the purposes of this session Judgment and insight: Improving mildly Assessment Suicide attempt via overdose on metoprolol Major depressive disorder, recurrent, severe Alcohol use disorder, severe in withdrawal Generalized anxiety disorder Plan: -Patient continues to meet criteria for inpatient psychiatric admission for symptom stabilization and safety. Patient has signed adult voluntary form and medication consent and was placed in patient's chart. -Medications: Discontinue Cymbalta 30 mg daily given adverse effects and start Lexapro 10 mg daily tomorrow for depression/anxiety. Continue Vistaril 25 mg at bedtime for sleep -When necessary Ativan and Haldol for agitation/aggression. -Labs: Reviewed -NRT -nicotine patch -CIWA protocol with Ativan PRN for ETOH withdrawal. Starting Librium taper today with a goal of discontinuing this medication on Sunday given improvements in withdrawal symptoms -SW on board for discharge planning. Encouraged the patient to participate in milieu. Anticipate discharge home with on Sunday pending stabilization of symptoms and adverse effects
[2024-04-25 17:49] LABS: HCT 32.2 % (39.0-53.0); HGB 10.1 gm/dL (13.0-17.5); Hypochromasia Marked; MCH 31.5 pg (25.0-35.0); MCHC 31.5 g/dL (31.0-37.0); Macrocytosis Slight; Mean Platelet Volume 8.6; Platelet Count 172 k/uL (150-450); RBC 3.21 m/uL (4.30-5.90); RDW 14.9 % (11.5-15.5); WBC 3.3 k/uL (3.8-10.6)
[2024-04-25 17:57] LABS: African American GFR (CKD) 68 (>60 ml/min/1.73 sqM); Anion Gap 2 mmol/L; Blood Urea Nitrogen 11 mg/dL (9-20); Calcium 8.4 mg/dL (8.4-10.2); Carbon Dioxide 28 mmol/L (22-30); Chloride 107 mmol/L (98-107); Glucose 82 mg/dL (74-99); Non-African American GFR(CKD) 59 (>60 ml/min/1.73 sqM); Potassium 4.2 mmol/L (3.5-5.1); Sodium 137 mmol/L (137-145)
[2024-04-25] MEDS: chlordiazePOXIDE 25 MG CAP PO SCH (18:11)
[2024-04-25 18:56] LABS: Eosinophils # (M) 0.17 k/uL (0-0.7); Lymphocytes # (M) 1.09 k/uL (1.0-4.8); Neutrophils # (M) 1.55 k/uL (1.3-7.7); Neutrophils % (M) 47 %; Nucleated Red Blood Cells 0 /100 WBC (0-0); Total Cells Counted 100
[2024-04-26] MEDS: ESCITALOPRAM 10 MG TAB PO SCH (08:44)
[2024-04-26] MEDS: chlordiazePOXIDE 25 MG CAP PO SCH (08:46)
--- NOTE | 2024-04-26 12:30 | P.PN ---
Progress Note - Text Interval history: Patient was seen in his roomand was directable and agreeable to speak with keno writer/runner. denies withdrawal symptoms. At this time patient denies any suicidal or homicidal ideations intent or plan. Denies any Auditory or visual hallucinations. states that one medication that he took yesterday really impair his concentration. States that this poor concentration and is now resolved. Overall feels tired because of the medications. Mental status exam: General Appearance: [Patient appears to be older than stated age is alert, directable, and cooperative.] bilateral hand tremors present. Behavior: [No agitated behavior. Patient is calm and directable] Speech: Patient's speech is fluent and nonpressured. Mood/Affect: Mood is improving mildly, affect is congruent and constricted. Suicidality/Homicidality: Patient denies having any suicidal or homicidal ideation intent or plan. Perceptions: Patient denies any auditory or visual hallucinations. Though content/process: [There is no evidence of any delusional thought content and thought process is linear and goal-directed.] Memory and concentration: AOX3, grossly intact for the purposes of this session Judgment and insight: improving mildly Assessment/Plan: Continue with current diagnosis. Patient continues to meet criteria for inpatient psychiatric admission for symptom stabilization and safety.[Patient will be maintained on current psychotropic medication regimen.] Monitor for medication compliance and for any psychotropic medication side effects. Will continue to monitor ongoing response to treatment. Encouraged participation in milieu.
[2024-04-27] MEDS: ACETAMINOPHEN TAB 325 MG TAB PO PRN (02:39)
[2024-04-27 10:08] VITALS: RESP 20; TEMP 97.2
--- NOTE | 2024-04-27 10:10 | P.PN ---
Progress Note - Text Interval history: Patient was seen in his roomand was directable and agreeable to speak with ticket writer. At this time patient denies any suicidal or homicidal ideations intent or plan. Denies any Auditory or visual hallucinations. Mental status exam: General Appearance: [Patient appears to be older thanstated age is alert, directable, and cooperative.] Behavior: [No agitated behavior. Patient is calm and directable] Speech: Patient's speech is fluent and nonpressured. Mood/Affect: Mood is improving mildly, affect is congruent and constricted. Suicidality/Homicidality: Patient denies having any suicidal or homicidal ideation intent or plan. Perceptions: Patient denies any auditory or visual hallucinations. Though content/process: [There is no evidence of any delusional thought content and thought process is linear and goal-directed.] Memory and concentration: AOX3, grossly intact for the purposes of this session Judgment and insight: improving mildly Assessment/Plan: Continue with current diagnosis. Patient continues to meet criteria for inpatient psychiatric admission for symptom stabilization and safety.[Patient will be maintained on current psychotropic medication regimen.] Monitor for medication compliance and for any psychotropic medication side effects. Will continue to monitor ongoing response to treatment. Encouraged participation in milieu.
[2024-04-28 06:38] VITALS: BP 124/65; PULSE 63
--- NOTE | 2024-04-28 15:05 | P.DS ---
Providers Date of admission: 04/23/24 17:04 Expected date of discharge: 04/28/24 Attending physician: Bree Ross MD Consults: 04/23/24 15:45 Consult Physician Routine Consulting Provider: Ciera Sanchez Consult Reason/Comments: H and P Do you want consulting provider notified?: Yes Primary care physician: Girma Eric Kira - Discharge Diagnosis(es) (1) Suicide attempt by beta trish overdose Current Visit: Yes Status: Acute Priority: High (2) Major depressive disorder, recurrent episode, severe Current Visit: Yes Status: Acute Priority: High (3) Alcohol dependence with withdrawal Current Visit: Yes Status: Chronic Priority: High (4) Generalized anxiety disorder Current Visit: Yes Status: Acute Priority: Low Hospital Course: Admission HPI: Admission note was completed by instructional writer "Patient presented to the hospital on 04/20 after reportedly ingesting 60 tabs of metoprolol along with alcohol. Patient's alcohol level on admission was 291 and he was started on CIWA protocol and admitted to the ICU. Patient reportedly has been drinking 1/5 of vodka per day for the past month. Patient seen and evaluated on the unit and was agreeable to speak to instructional writer in the office. He states he has been overwhelmed recently due to him finding out he has a torn aorta and his being sick recently. He states back in November he spent 6 days at [facility] due to chest pain however they did not do anything for him. He ultimately went elsewhere where they discovered stable but chronic ascending aorta however he expresses frustration with the care he has been receiving. He states his recently had to get a bone marrow biopsy due to abnormalities found on his lab. He states he was not sleeping due to racing thoughts and he was drinking heavily for the past month, specifically 1/5 of hard liquor per day. He vehemently denies any history of heavy alcohol use and he states he is able to stop whenever he wants and that he has control over his drinking. He denied any eliana or rehab and is not interested at the moment. He states on the day of the attempt he ingested metoprolol along with alcohol however he immediately caught his as he realized he had made a mistake. He states being happy that the attempt was not successful. He reports feelings of helplessness however denied any appetite or energy changes. He reports anxiety that appears more generalized in nature along with racing thoughts and feeling on edge. He reports chronic tremors of his hand to which she sees a neurologist for. He reports ongoing alcohol withdrawal symptoms however states they are less severe and improving daily with CIWA protocol. Patient denies any suicidal or homicidal ideations intent or plan. At this time patient denies any auditory or visual hallucinations. Patient denies any history of flight of ideas racing thoughts and increased in goal directed behavior." Hospital course: Upon admission to the unit patient was directable and agreeable to commence treatment and signed adult voluntary form.. Patient got along well with other patients on the unit and followed unit protocol. Patient was compliant with the medications and denied any side effects throughout hospital course. Patient was started on Cymbalta 30 mg daily however was experiencing adverse effects including mental fogginess and thus this was discontinued and he was started on Lexapro 10 mg to which he had a previous good response to and tolerated this medication better. Patient was also started on Vistaril 25 mg at bedtime for sleep however would not be discharged on this medication given him being on amiodarone and Lexapro, two QTc prolonging agents. Patient was also started on CIWA protocol given his alcohol use with Librium schedule that was tapered off throughout his hospitalization. Patient spoke of his stressors and engaged in therapy both group and individual. Patient was also seen by medical team for history and physical exam. Patient was continued on his home medications. Throughout the course of the hospitalization patient gradually improved with regards to mood, anxiety, sleep and returned back to their baseline level of functioning and became more future oriented with improved insight and judgment. On the day of discharge patient denied any suicidal or homicidal ideations intent or plan denied any auditory or visual hallucinations. The patient denied any access to guns or weapons. Patient denied any paranoia and did not endorse any delusions. Patient does have a significant history of substance abuse and was counseled on abstaining from all substances including alcohol and marijuana. Patient was offered however declined inpatient substance-abuse rehab. Patient was adamant that his spouse has removed all of the alcohol that was at their home. Patient was also counseled on the medications and need for regular compliance and was encouraged to follow-up with their outpatient appointment for mental health and also for primary care. Prior to discharge a family meeting will be arranged by social welfare research worker to answer any questions and ensure safety upon discharge incuding making sure that guns/weapons are either removed from the home or locked away. Mental status exam: General Appearance: Patient appears to be stated age is alert, pleasant, and cooperative. Patient is in no acute distress and has improved hygiene and grooming. Patient notably wears glasses and has short dykes hair Behavior: Patient is calmly seated without any agitated behavior. Speech: Patient's speech is fluent and nonpressured. Mood/Affect: Patient reports their mood is "better", affect is congruent and euthymic. Suicidality/Homicidality: Patient denies having any suicidal or homicidal ideation intent or plan. Perceptions: Patient denies any auditory or visual hallucinations. Though content/process: There is no evidence of any delusional thought content and thought process is linear and goal-directed. More future oriented Memory and concentration: AOX3, grossly intact for the purposes of this session. Can spell "WORLD" backwards correctly. Judgment and insight: Improved during hospitalization Impression: Suicide attempt via overdose on beta-trish Major depressive disorder, recurrent, severe Alcohol dependence with withdrawal Generalized anxiety disorder Nicotine dependence Plan: -Continue with discharge today as patient has improved and stabilized psychiatrically and is not currently an imminent threat to themself and/or others. -Continue medications: Lexapro 10 mg daily for depression/anxiety -Patient was counseled on the need for medication compliance and appropriate follow-up at mental health and also primary care for medical issues. Patient verbalized understanding and agreed. -Social work to help coordinate patients discharge today arrange for and conduct family meeting to ensure safety upon discharge and answer any questions/concerns. also to ensure safe home environment that guns/weapons are either removed from the home or locked away. Social work also to arrange for patients follow up appointments with [facility] for psychiatric care along with follow up with primary care provider. -Patient counseled on abstaining from recreational drugs and marijuana and alcohol. Was informed/educated on the adverse effects on their physical and mental health. Patient verbally agreed and understood. Patient was offered substance abuse treatment however declined at this time. -Patient was instructed to return to the hospital or seek immediate medical care if their psychiatric or medical symptoms do worsen or reoccur. Allergies Allergy/AdvReac Type Severity Reaction Status Date / Time abacavir [From Ziagen] Allergy Anaphylaxis Verified 04/23/24 17:17 efavirenz [From Sustiva] Allergy Anaphylaxis Verified 04/23/24 17:17 levofloxacin Allergy Itching Verified 04/23/24 17:17 hydrocodone AdvReac Rapid Verified 04/23/24 17:17 [From [facility]] Heart Rate morphine AdvReac Itching Verified 04/23/24 17:17 sulfamethoxazole AdvReac HIGH Verified 04/23/24 17:17 [From Bactrim] CREATININE LEVEL trimethoprim [From Bactrim] AdvReac HIGH Verified 04/23/24 17:17 CREATININE Abnormal Labs 04/23/24 04/25/24 04/25/24 08:00 17:14 17:14 WBC 3.3 L RBC 3.21 L Hgb 10.1 L Hct 32.2 L Creatinine 1.30 H HDL Cholesterol 66.60 H Vital Signs Temp 97.2 F L 04/27/24 08:00 Pulse 63 04/28/24 06:37 Resp 20 04/27/24 08:00 BP 124/65 04/28/24 06:37 Pulse Ox 99 04/27/24 20:10 FiO2 Intake & Output 04/27/24 04/28/24 04/28/24 18:59 06:59 18:59 Weight 82.781 kg Patient Condition at Discharge: Stable Plan - Discharge Summary Discharge Rx Participant: No New Discharge Prescriptions: New hydrOXYzine pamoate [Vistaril] 25 mg PO HS 30 Days #30 cap Escitalopram [Lexapro] 10 mg PO DAILY 30 Days #30 tab Lumigan 1 drop BOTH EYES HS Thiamine [Vitamin B-1] 100 mg PO DAILY 30 Days #30 tab Continue Ondansetron [Zofran ODT] 8 mg PO BID PRN PRN Reason: Nausea And Vomiting Darunavir/Cobicistat [Prezcobix 800 mg-150 mg Tablet] 1 tab PO DAILY Ipratropium-Albuterol Nebulize [Duoneb 0.5 mg-3 mg/3 ml Soln] 3 ml INHALATION RT-BID PRN PRN Reason: Shortness Of Breath Albuterol Sulfate [Albuterol Sulfate Hfa] 1 - 2 puff INHALATION RT-QID PRN PRN Reason: Shortness Of Breath Pantoprazole [Protonix] 40 mg PO DAILY Levothyroxine Sodium 200 mcg PO DAILY Colchicine 0.6 mg PO DIRECTED PRN PRN Reason: gout flare Bumetanide [BUMEX] 1 mg PO DAILY PRN PRN Reason: weight gain Bictegrav/Emtricit/Tenofov Ala [Biktarvy 50-200-25 mg Tablet] 1 tab PO DAILY Tamsulosin HCl [Flomax] 0.4 mg PO HS Empagliflozin [Jardiance] 10 mg PO DAILY oxyCODONE-APAP 10-325MG [Percocet 10-325 mg] 1 tab PO Q6HR PRN 3 Days #12 tab PRN Reason: Pain Bimatoprost [Lumigan 0.01% Ophth Soln] 1 drop BOTH EYES HS allopurinoL 100 mg PO DAILY Amiodarone [Cordarone] 400 mg PO BID #60 tab Spironolactone [Aldactone] 12.5 mg PO DAILY #30 tab Discontinued Thiamine [Vitamin B-1] 100 mg PO DAILY #60 tab No Action Sacubitril/Valsartan [Entresto 24 mg-26 mg Tablet] 1 tab PO BID hydrOXYzine HCL 10 mg PO Q6H PRN PRN Reason: Itching Gabapentin 600 mg PO TID Apixaban [Eliquis] 2.5 mg PO BID Rosuvastatin Calcium 40 mg PO DAILY Fenofibrate Nanocrystallized [Fenofibrate] 48 mg PO DAILY Metoprolol Tartrate [Lopressor] 25 mg PO BID #60 tab Discharge Medication List Ondansetron [Zofran ODT] 8 mg PO BID PRN 05/18/18 [History] Bictegrav/Emtricit/Tenofov Ala [Biktarvy 50-200-25 mg Tablet] 1 tab PO DAILY 09/07/21 [History] Darunavir/Cobicistat [Prezcobix 800 mg-150 mg Tablet] 1 tab PO DAILY 09/07/22 [History] Ipratropium-Albuterol Nebulize [Duoneb 0.5 mg-3 mg/3 ml Soln] 3 ml INHALATION RT-BID PRN 10/23/23 [History] Albuterol Sulfate [Albuterol Sulfate Hfa] 1 - 2 puff INHALATION RT-QID PRN 12/27/23 [History] Empagliflozin [Jardiance] 10 mg PO DAILY 12/27/23 [History] Sacubitril/Valsartan [Entresto 24 mg-26 mg Tablet] 1 tab PO BID 12/27/23 [History] Tamsulosin HCl [Flomax] 0.4 mg PO HS 12/27/23 [History] Fenofibrate Nanocrystallized [Fenofibrate] 48 mg PO DAILY 03/17/24 [History] Levothyroxine Sodium 200 mcg PO DAILY 03/17/24 [History] Pantoprazole [Protonix] 40 mg PO DAILY 03/17/24 [History] Rosuvastatin Calcium 40 mg PO DAILY 03/17/24 [History] hydrOXYzine HCL 10 mg PO Q6H PRN 03/17/24 [History] oxyCODONE-APAP 10-325MG [Percocet 10-325 mg] 1 tab PO Q6HR PRN 3 Days #12 tab 03/20/24 [Rx] Apixaban [Eliquis] 2.5 mg PO BID 04/03/24 [History] Bimatoprost [Lumigan 0.01% Ophth Soln] 1 drop BOTH EYES HS 04/03/24 [History] Bumetanide [BUMEX] 1 mg PO DAILY PRN 04/03/24 [History] Colchicine 0.6 mg PO DIRECTED PRN 04/03/24 [History] Gabapentin 600 mg PO TID 04/03/24 [History] allopurinoL 100 mg PO DAILY 04/03/24 [History] Amiodarone [Cordarone] 400 mg PO BID #60 tab 04/12/24 [Rx] Metoprolol Tartrate [Lopressor] 25 mg PO BID #60 tab 04/12/24 [Rx] Spironolactone [Aldactone] 12.5 mg PO DAILY #30 tab 04/12/24 [Rx] Escitalopram [Lexapro] 10 mg PO DAILY 30 Days #30 tab 04/28/24 [Rx] Lumigan 1 drop BOTH EYES HS 04/28/24 [Rx] Thiamine [Vitamin B-1] 100 mg PO DAILY 30 Days #30 tab 04/28/24 [Rx] hydrOXYzine pamoate [Vistaril] 25 mg PO HS 30 Days #30 cap 04/28/24 [Rx] Follow up Appointment(s)/Referral(s): [facility] [Outside] - 05/01/24 3:15 pm (with Nithya) Girma Malone MD [Primary Care Provider] - 1 Week Patient Instructions/Handouts: How to Stop Smoking (DC), Depression (DC), Abuse of Alcohol (DC) Activity/Diet/Wound Care/Special Instructions: Avoid the use of street drugs and alcohol. Take all medications as prescribed. When you are in need of refills on your medications, please contact your medical provider and/or outpatient psychiatrist/provider to have this done. Please go to your scheduled outpatient appointment for aftercare treatment. If symptoms return or become worse, call the crisis line at and/or go to the nearest emergency room for evaluation. National Suicide Hotline 988 Discharge/Stand Alone Forms: AA Meetings [facility] - [facility], AA Meetings [place] Discharge Disposition: HOME SELF-CARE
== END 2024-04-28 15:45 | disposition home or self-care (01) | DRG 885 ==
LOC: 3MHU 17:04
PROVIDERS: ADMIT Psychiatry & Neurology Psychiatry; ATTEND Psychiatry & Neurology Psychiatry
DX: F33.2 Major depressive disorder, recurrent severe without psychotic features (principal); F10.239 Alcohol dependence with withdrawal, unspecified; I50.22 Chronic systolic (congestive) heart failure; E03.9 Hypothyroidism, unspecified; F12.90 Cannabis use, unspecified, uncomplicated; F17.200 Nicotine dependence, unspecified, uncomplicated; F41.1 Generalized anxiety disorder; F43.10 Post-traumatic stress disorder, unspecified; G89.4 Chronic pain syndrome; I11.0 Hypertensive heart disease with heart failure; I48.91 Unspecified atrial fibrillation; J45.909 Unspecified asthma, uncomplicated; K21.9 Gastro-esophageal reflux disease without esophagitis; M1A.9XX0 Chronic gout, unspecified, without tophus (tophi); M79.7 Fibromyalgia; N40.0 Benign prostatic hyperplasia without lower urinary tract symptoms; T44.7X2A Poisoning by beta-adrenoreceptor antagonists, intentional self-harm, initial encounter; Y90.8 Blood alcohol level of 240 mg/100 ml or more; Z79.01 Long term (current) use of anticoagulants; Z79.84 Long term (current) use of oral hypoglycemic drugs; Z79.890 Hormone replacement therapy; Z79.899 Other long term (current) drug therapy; Z91.410 Personal history of adult physical and sexual abuse; Z91.51 Personal history of suicidal behavior
CPT/HCPCS: 80048; 80061; 83036; 84443; 85025

== ENCOUNTER 2024-05-08 12:12 | Emergency (ER) | payer MEDICARE, OTHER ==
[2024-05-08 12:25] VITALS: PULSE 91; RESP 18
--- NOTE | 2024-05-08 12:39 | ED ---
General Adult HPI - General Chief complaint: Overdose Stated complaint: ETOH/Withdrawls Time Seen by Provider: 05/08/24 12:20 Source: patient, EMS, RN notes reviewed, old records reviewed Mode of arrival: EMS Limitations: no limitations - History of Present Illness Initial comments: This is a 63-year-old male who presents to the emergency department states he is supposed to to take 4 [place] every day and he takes too many probably upwards of 8-10 a day and he ran out of his [place] on Sunday and now he is feeling shaky and nauseated. Patient denies any vomiting. Patient has chest pain difficult breathing shortness of breath. Patient denies any abdominal pain patient [place] any fever chills or cough. Patient states he is withdrawn and does not think he can do it on his own. - Related Data Home Medications Medication Instructions Recorded Confirmed Ondansetron [Zofran ODT] 8 mg PO BID PRN 05/18/18 04/23/24 Bictegrav/Emtricit/Tenofov Ala 1 tab PO DAILY 09/07/21 04/23/24 [Biktarvy 50-200-25 mg Tablet] Darunavir/Cobicistat [Prezcobix 1 tab PO DAILY 09/07/22 04/23/24 800 mg-150 mg Tablet] Ipratropium-Albuterol Nebulize 3 ml INHALATION RT-BID PRN 10/23/23 04/23/24 [Duoneb 0.5 mg-3 mg/3 ml Soln] Albuterol Sulfate [Albuterol 1 - 2 puff INHALATION RT-QID PRN 12/27/23 04/23/24 Sulfate Hfa] Empagliflozin [Jardiance] 10 mg PO DAILY 12/27/23 04/23/24 Sacubitril/Valsartan [Entresto 24 1 tab PO BID 12/27/23 04/23/24 mg-26 mg Tablet] Tamsulosin HCl [Flomax] 0.4 mg PO HS 12/27/23 04/23/24 Fenofibrate Nanocrystallized 48 mg PO DAILY 03/17/24 04/23/24 [Fenofibrate] Levothyroxine Sodium 200 mcg PO DAILY 03/17/24 04/23/24 Pantoprazole [Protonix] 40 mg PO DAILY 03/17/24 04/23/24 Rosuvastatin Calcium 40 mg PO DAILY 03/17/24 04/23/24 hydrOXYzine HCL 10 mg PO Q6H PRN 03/17/24 04/23/24 Apixaban [Eliquis] 2.5 mg PO BID 04/03/24 04/23/24 Bimatoprost [Lumigan 0.01% Ophth 1 drop BOTH EYES HS 04/03/24 04/23/24 Soln] Bumetanide [BUMEX] 1 mg PO DAILY PRN 04/03/24 04/23/24 Colchicine 0.6 mg PO DIRECTED PRN 04/03/24 04/23/24 Gabapentin 600 mg PO TID 04/03/24 04/23/24 allopurinoL 100 mg PO DAILY 04/03/24 04/23/24 Previous Rx's Medication Instructions Recorded oxyCODONE-APAP 10-325MG [Percocet 1 tab PO Q6HR PRN 3 Days #12 tab 03/20/24 10-325 mg] Amiodarone [Cordarone] 400 mg PO BID #60 tab 04/12/24 Metoprolol Tartrate [Lopressor] 25 mg PO BID #60 tab 04/12/24 Spironolactone [Aldactone] 12.5 mg PO DAILY #30 tab 04/12/24 Escitalopram [Lexapro] 10 mg PO DAILY 30 Days #30 tab 04/28/24 Lumigan 1 drop BOTH EYES HS 04/28/24 Thiamine [Vitamin B-1] 100 mg PO DAILY 30 Days #30 tab 04/28/24 hydrOXYzine pamoate [Vistaril] 25 mg PO HS 30 Days #30 cap 04/28/24 Allergies Allergy/AdvReac Type Severity Reaction Status Date / Time abacavir [From Ziagen] Allergy Anaphylaxis Verified 05/08/24 12:26 efavirenz [From Sustiva] Allergy Anaphylaxis Verified 05/08/24 12:26 levofloxacin Allergy Itching Verified 05/08/24 12:26 hydrocodone AdvReac Rapid Verified 05/08/24 12:26 [From [facility]] Heart Rate morphine AdvReac Itching Verified 05/08/24 12:26 sulfamethoxazole AdvReac HIGH Verified 05/08/24 12:26 [From Bactrim] CREATININE LEVEL trimethoprim [From Bactrim] AdvReac HIGH Verified 05/08/24 12:26 CREATININE Review of Systems ROS Statement: Those systems with pertinent positive or pertinent negative responses have been documented in the HPI. ROS Other: All systems not noted in ROS Statement are negative. Past Medical History Past Medical History: Atrial Fibrillation, Asthma, Heart Failure, Fibromyalgia, GERD/Reflux, Hypertension, Prostate Disorder Additional Past Medical History / Comment(s): Mitral valve disease w/ MV repair at [facility] 2000, HIV positive, past HTN and recently low blood pressures, BPH, R ankle gout, chronic nausea, bilateral glaucoma, chronic pain syndrome, chronic low back and bilateral hip pain and occasional cervical pain, DDD, lumbar stenosis/spondylosis, abdominal hernia, previous history of drug overdose. PTSD History of Any Multi-Drug Resistant Organisms: None Reported Past Surgical History: Heart Catheterization, Hernia Repair Additional Past Surgical History / Comment(s): Mitral valve repair at [facility] (2000), Type A aortic disection repordedly treated conservatively by [facility], R inguinal hernia x2, L inguinal hernia, epidural injections to back, hip injections, RFAs, spinal cord stimulator trial-removed, Past Anesthesia/Blood Transfusion Reactions: No Reported Reaction Past Psychological History: Anxiety, Depression, PTSD Smoking Status: Former smoker Past Alcohol Use History: Abuse Past Drug Use History: Marijuana, Prescription Drug Abuse - Past Family History Father History Unknown: Yes Additional Family Medical History / Comment(s): Father was injured at work and of complication during his hospitalization. Mother Additional Family Medical History / Comment(s): Mother is from alcoholism. Brother(s) Additional Family Medical History / Comment(s): alcohol and HF General Exam - General Exam Comments Initial Comments: GENERAL: Patient is well-developed and well-nourished. Patient is nontoxic and well-hydrated. Patient does not appear to be shaky currently he is in no distress at this time ENT: Neck is soft and supple. No significant lymphadenopathy is noted. Oropharynx is clear. Moist mucous membranes. Neck has full range of motion without eliciting any pain. EYES: The sclera were anicteric and conjunctiva were pink and moist. Extraocular movements were intact and pupils were equal round and reactive to light. Eyelids were unremarkable. PULMONARY: Unlabored respirations. Good breath sounds bilaterally. No audible rales rhonchi or wheezing was noted. CARDIOVASCULAR: There is a regular rate and rhythm without any murmurs gallops or rubs. ABDOMEN: Soft and nontender with normal bowel sounds. SKIN: Skin is clear with no lesions or rashes and otherwise unremarkable. NEUROLOGIC: Patient is alert and oriented x3. Cranial nerves II through XII are grossly intact. Motor and sensory are also intact. Normal speech, volume and content. Symmetrical smile. MUSCULOSKELETAL: Normal extremities with adequate strength and full range of motion. LYMPHATICS: No significant lymphadenopathy is noted PSYCHIATRIC: Normal psychiatric evaluation. Limitations: no limitations Course Vital Signs 05/08/24 12:20 Temperature 97.7 F Pulse Rate 91 Respiratory 18 Rate Blood Pressure 129/73 O2 Sat by Pulse 97 Oximetry Medical Decision Making - Medical Decision Making EKG is interpreted by myself. EKG shows atrial fibrillation at 80 bpm QRS is 130 QTc 415 QTc is 4 6 AK 1. Patient's EKG no ST segment patient or depression Was pt. sent in by a medical professional or institution (, [facility], [employer], urgent care, hospital, or residential...) When possible be specific @ -No Did you speak to anyone other than the patient for history (EMS, parent, family, police, friend...)? What history was obtained from this source @ -No Did you review nursing and triage notes (agree or disagree)? Why? @ -I reviewed and agree with nursing and triage notes Were old charts reviewed (outside hosp., previous admission, EMS record, old EKG, old radiological studies, urgent care reports/EKG's, residential records)? Report findings @ -No old charts were reviewed Differential Diagnosis? @ -drug abuse, patient opiate withdrawal, Tylenol overdose, alcohol i ntoxication, alcohol withdrawal, this is not an all-inclusive list EKG interpreted by me (3pts min.). @ -As above X-rays interpreted by me (1pt min.). @ -None done CT interpreted by me (1pt min.). @ -None done U/S interpreted by me (1pt. min.). @ -None done What testing was considered but not performed or refused? (CT, X-rays, U/S, labs)? Why? @ -None What meds were considered but not given or refused? Why? @ -None Did you discuss the management of the patient with other professionals (professionals i.e. , PA, [employer], lab, RT, psych nurse, clinical social work aide, planer mill grader, teacher, asset protection officer, disease case manager rn)? Give summary @ -No Was smoking cessation discussed for >3mins.? @ -No Was critical care preformed (if so, how long)? @ -No Were there social determinants of health that impacted care today? How? (Homelessness, low income, unemployed, alcoholism, drug addiction, transportation, low edu. Level, literacy, decrease access to med. care, senior living, rehab)? @ -No Was there de-escalation of care discussed even if they declined (Discuss DNR or withdrawal of care, Hospice)? DNR status @ -No What co-morbidities impacted this encounter? (DM, HTN, Smoking, COPD, CAD, Cancer, CVA, ARF, Chemo, Hep., AIDS, mental health diagnosis, sleep apnea, morbid obesity)? @ -None Was patient admitted / discharged? Hospital course, mention meds given and route, prescriptions, significant lab abnormalities, going to OR and other pertinent info. @ -Patient had no visible signs of withdrawal he was not shaking he was not vomiting though he did state earlier he was nauseous and Zofran helped him in the ambulance but he has not had any nausea since. Patient is instructed to follow-up with his primary medical care doctor for his abuse of narcotics Undiagnosed new problem with uncertain prognosis? @ -No Drug Therapy requiring intensive monitoring for toxicity (Heparin, Nitro, Insulin, Cardizem)? @ -No Were any procedures done? @ -No Diagnosis/symptom? @ -Narcotic abuse Acute, or Chronic, or Acute on Chronic? @ -Acute Uncomplicated (without systemic symptoms) or Complicated (systemic symptoms)? @ Complicated Side effects of treatment? @ -No Exacerbation, Progression, or Severe Exacerbation? @ -No Poses a threat to life or bodily function? How? (Chest pain, [place], [place], pneumonia, PE, COPD, DKA, ARF, appy, cholecystitis, CVA, Diverticulitis, Homicidal, Suicidal, threat to staff... and all critical care pts) @ -No - Lab Data Result diagrams: 05/08/24 13:13 05/08/24 13:13 Lab Results 05/08/24 05/08/24 05/08/24 Range/Units 12:45 13:13 13:13 WBC 10.8 H (3.8-10.6) k/uL RBC 4.06 L (4.30-5.90) m/uL Hgb 12.4 L (13.0-17.5) gm/dL Hct 39.3 (39.0-53.0) % MCV 96.7 (80.0-100.0) fL MCH 30.6 (25.0-35.0) pg MCHC 31.6 (31.0-37.0) g/dL RDW 14.7 (11.5-15.5) % Plt Count 193 (150-450) k/uL MPV 8.9 Neutrophils % 75 % Lymphocytes % 16 % Monocytes % 7 % Eosinophils % 1 % Basophils % 0 % Neutrophils # 8.1 H (1.3-7.7) k/uL Lymphocytes # 1.7 (1.0-4.8) k/uL Monocytes # 0.7 (0-1.0) k/uL Eosinophils # 0.1 (0-0.7) k/uL Basophils # 0.0 (0-0.2) k/uL Hypochromasia Slight Sodium 138 (137-145) mmol/L Potassium 4.1 (3.5-5.1) mmol/L Chloride 106 (98-107) mmol/L Carbon Dioxide 17 L (22-30) mmol/L Anion Gap 15 mmol/L BUN 10 (9-20) mg/dL Creatinine 0.81 (0.66-1.25) mg/dL Est GFR (CKD-EPI)AfAm >90 (>60 ml/min/1.73 sqM) Est GFR (CKD-EPI)NonAf >90 (>60 ml/min/1.73 sqM) Glucose 85 (74-99) mg/dL Calcium 9.0 (8.4-10.2) mg/dL Total Bilirubin 0.8 (0.2-1.3) mg/dL AST 35 (17-59) U/L ALT 12 (4-49) U/L Alkaline Phosphatase 65 (38-126) U/L Total Protein 6.5 (6.3-8.2) g/dL Albumin 3.6 (3.5-5.0) g/dL Salicylates <1.0 mg/dL Urine Opiates Screen Detected H (NotDetected) Ur Oxycodone Screen Detected H (NotDetected) Urine Methadone Screen Not Detected (NotDetected) Acetaminophen <10.0 ug/mL Ur Barbiturates Screen Not Detected (NotDetected) U Tricyclic Antidepress Not Detected (NotDetected) Ur Phencyclidine Scrn Not Detected (NotDetected) Ur Amphetamines Screen Not Detected (NotDetected) U Methamphetamines Scrn Not Detected (NotDetected) U Benzodiazepines Scrn Detected H (NotDetected) Urine Cocaine Screen Not Detected (NotDetected) U Marijuana (THC) Screen Not Detected (NotDetected) Serum Alcohol <10 mg/dL Disposition Clinical Impression: Narcotic abuse Disposition: HOME SELF-CARE Condition: Good Instructions (If sedation given, give patient instructions): Opioid Withdrawal (ED), Narcotic Use Disorder (ED) Is patient prescribed a controlled substance at d/c from ED?: No Referrals: Girma Malone MD [Primary Care Provider] - 1-2 days Time of Disposition: 14:19
[2024-05-08] MEDS: SODIUM CHLORIDE 0.9% 1,000 ML IV STA (13:04)
[2024-05-08 13:21] LABS: Basophils % (A) 0 %; Eosinophils # (A) 0.1 k/uL (0-0.7); Eosinophils % (A) 1 %; HCT 39.3 % (39.0-53.0); HGB 12.4 gm/dL (13.0-17.5); Hypochromasia Slight; Lymphocytes # (A) 1.7 k/uL (1.0-4.8); Lymphocytes % (A) 16 %; MCH 30.6 pg (25.0-35.0); MCHC 31.6 g/dL (31.0-37.0); MCV 96.7 fL (80.0-100.0); Mean Platelet Volume 8.9; Monocytes # (A) 0.7 k/uL (0-1.0); Monocytes % (A) 7 %; Neutrophils # (A) 8.1 k/uL (1.3-7.7); Neutrophils % (A) 75 %; Platelet Count 193 k/uL (150-450); RBC 4.06 m/uL (4.30-5.90); RDW 14.7 % (11.5-15.5); WBC 10.8 k/uL (3.8-10.6)
[2024-05-08 13:34] LABS: Amphetamine Screen,Urine Not Detected (NotDetected); Barbiturate Screen,Urine Not Detected (NotDetected); Benzodiazepines Screen,Urine Detected (NotDetected); Cocaine Screen,Urine Not Detected (NotDetected); Methadone Screen, Urine Not Detected (NotDetected); Opiate Screen,Urine Detected (NotDetected); Oxycodone Screen, Urine Detected (NotDetected); Phencyclidine Screen,Urine Not Detected (NotDetected); Tricyclic Antidepressant,Urine Not Detected (NotDetected); Urn Cannabinoid Scrn Not Detected (NotDetected)
[2024-05-08 14:00] LABS: AST 35 U/L (17-59); African American GFR (CKD) >90 (>60 ml/min/1.73 sqM); Albumin 3.6 g/dL (3.5-5.0); Alcohol <10 mg/dL; Alkaline Phosphatase 65 U/L (38-126); Anion Gap 15 mmol/L; Blood Urea Nitrogen 10 mg/dL (9-20); Carbon Dioxide 17 mmol/L (22-30); Chloride 106 mmol/L (98-107); Glucose 85 mg/dL (74-99); Non-African American GFR(CKD) >90 (>60 ml/min/1.73 sqM); Potassium 4.1 mmol/L (3.5-5.1); Salicylate <1.0 mg/dL; Sodium 138 mmol/L (137-145); Total Bilirubin 0.8 mg/dL (0.2-1.3); Total Protein 6.5 g/dL (6.3-8.2)
[2024-05-08 14:01] LABS: ALT 12 U/L (4-49); Acetaminophen <10.0 ug/mL
[2024-05-08 14:46] VITALS: BP 136/72; TEMP 97.9
== END 2024-05-08 14:46 | disposition home or self-care (01) ==
LOC: EC 12:12
DX: F11.10 Opioid abuse, uncomplicated (principal); Z88.5 Allergy status to narcotic agent; Z88.2 Allergy status to sulfonamides; Z88.1 Allergy status to other antibiotic agents; Z88.8 Allergy status to other drugs, medicaments and biological substances; Z87.891 Personal history of nicotine dependence; Y90.0 Blood alcohol level of less than 20 mg/100 ml
CPT/HCPCS: 36415; 80053; 80143; 80179; 80306; 80320; 82075; 85025; 93005; 96360; 96361; 99285

== ENCOUNTER 2024-05-09 21:37 | Emergency (ER) | payer MEDICARE, OTHER ==
[2024-05-09 21:43] VITALS: BP 144/72; PULSE 90; RESP 24; TEMP 98.3
--- NOTE | 2024-05-09 22:02 | ED ---
Chest Pain HPI - General Source: patient, RN notes reviewed Mode of arrival: wheelchair Limitations: no limitations <Lulú Owens - Last Filed: 05/09/24 21:57> <Marc Medrano - Last Filed: 05/17/24 07:40> - General Chief Complaint: Chest Pain Stated Complaint: Chest Pain,Sob Time Seen by Provider: 05/09/24 21:57 - History of Present Illness Initial Comments: Quick [id number] male with history of atrial fibrillation and CAD presenting to the ER with chief complaint of chest pain x 1 day with shortness of breath. States he woke up this morning with severe chest pain. Patient states he was recently hospitalized 3 weeks ago for cardiac arrhythmia. (Lulú Owens) - Related Data Home Medications Medication Instructions Recorded Confirmed Ondansetron [Zofran ODT] 8 mg PO BID PRN 05/18/18 04/23/24 Bictegrav/Emtricit/Tenofov Ala 1 tab PO DAILY 09/07/21 04/23/24 [Biktarvy 50-200-25 mg Tablet] Darunavir/Cobicistat [Prezcobix 1 tab PO DAILY 09/07/22 04/23/24 800 mg-150 mg Tablet] Ipratropium-Albuterol Nebulize 3 ml INHALATION RT-BID PRN 10/23/23 04/23/24 [Duoneb 0.5 mg-3 mg/3 ml Soln] Albuterol Sulfate [Albuterol 1 - 2 puff INHALATION RT-QID PRN 12/27/23 04/23/24 Sulfate Hfa] Empagliflozin [Jardiance] 10 mg PO DAILY 12/27/23 04/23/24 Sacubitril/Valsartan [Entresto 24 1 tab PO BID 12/27/23 04/23/24 mg-26 mg Tablet] Tamsulosin HCl [Flomax] 0.4 mg PO HS 12/27/23 04/23/24 Fenofibrate Nanocrystallized 48 mg PO DAILY 03/17/24 04/23/24 [Fenofibrate] Levothyroxine Sodium 200 mcg PO DAILY 03/17/24 04/23/24 Pantoprazole [Protonix] 40 mg PO DAILY 03/17/24 04/23/24 Rosuvastatin Calcium 40 mg PO DAILY 03/17/24 04/23/24 hydrOXYzine HCL 10 mg PO Q6H PRN 03/17/24 04/23/24 Apixaban [Eliquis] 2.5 mg PO BID 04/03/24 04/23/24 Bimatoprost [Lumigan 0.01% Ophth 1 drop BOTH EYES HS 04/03/24 04/23/24 Soln] Bumetanide [BUMEX] 1 mg PO DAILY PRN 04/03/24 04/23/24 Colchicine 0.6 mg PO DIRECTED PRN 04/03/24 04/23/24 Gabapentin 600 mg PO TID 04/03/24 04/23/24 allopurinoL 100 mg PO DAILY 04/03/24 04/23/24 Previous Rx's Medication Instructions Recorded oxyCODONE-APAP 10-325MG [Percocet 1 tab PO Q6HR PRN 3 Days #12 tab 03/20/24 10-325 mg] Amiodarone [Cordarone] 400 mg PO BID #60 tab 04/12/24 Metoprolol Tartrate [Lopressor] 25 mg PO BID #60 tab 04/12/24 Spironolactone [Aldactone] 12.5 mg PO DAILY #30 tab 04/12/24 Escitalopram [Lexapro] 10 mg PO DAILY 30 Days #30 tab 04/28/24 Lumigan 1 drop BOTH EYES HS 04/28/24 Thiamine [Vitamin B-1] 100 mg PO DAILY 30 Days #30 tab 04/28/24 hydrOXYzine pamoate [Vistaril] 25 mg PO HS 30 Days #30 cap 04/28/24 Allergies Allergy/AdvReac Type Severity Reaction Status Date / Time abacavir [From Ziagen] Allergy Anaphylaxis Verified 05/09/24 21:43 efavirenz [From Sustiva] Allergy Anaphylaxis Verified 05/09/24 21:43 levofloxacin Allergy Itching Verified 05/09/24 21:43 hydrocodone AdvReac Rapid Verified 05/09/24 21:43 [From [facility]] Heart Rate morphine AdvReac Itching Verified 05/09/24 21:43 sulfamethoxazole AdvReac HIGH Verified 05/09/24 21:43 [From Bactrim] CREATININE LEVEL trimethoprim [From Bactrim] AdvReac HIGH Verified 05/09/24 21:43 CREATININE Review of Systems ROS Other: All systems not noted in ROS Statement are negative. <Lulú Owens - Last Filed: 05/09/24 21:57> ROS Other: All systems not noted in ROS Statement are negative. <Marc Medrano - Last Filed: 05/17/24 07:40> ROS Statement: Those systems with pertinent positive or pertinent negative responses have been documented in the HPI. Past Medical History Past Medical History: Atrial Fibrillation, Asthma, Heart Failure, Fibromyalgia, GERD/Reflux, Hypertension, Prostate Disorder Additional Past Medical History / Comment(s): Mitral valve disease w/ MV repair at [facility] 2000, HIV positive, past HTN and recently low blood pressures, BPH, R ankle gout, chronic nausea, bilateral glaucoma, chronic pain syndrome, chronic low back and bilateral hip pain and occasional cervical pain, DDD, lumbar stenosis/spondylosis, abdominal hernia, previous history of drug overdose. PTSD History of Any Multi-Drug Resistant Organisms: None Reported Past Surgical History: Heart Catheterization, Hernia Repair Additional Past Surgical History / Comment(s): Mitral valve repair at [facility] (2000), Type A aortic disection repordedly treated conservatively by [facility], R inguinal hernia x2, L inguinal hernia, epidural injections to back, hip injections, RFAs, spinal cord stimulator trial-removed, Past Anesthesia/Blood Transfusion Reactions: No Reported Reaction Past Psychological History: Anxiety, Depression, PTSD Smoking Status: Former smoker Past Alcohol Use History: Abuse Past Drug Use History: Marijuana, Prescription Drug Abuse - Past Family History Father History Unknown: Yes Additional Family Medical History / Comment(s): Father was injured at work and of complication during his hospitalization. Mother Additional Family Medical History / Comment(s): Mother is from alcoholism. Brother(s) Additional Family Medical History / Comment(s): alcohol and HF <Lulú Owens - Last Filed: 05/09/24 21:57> General Exam Limitations: no limitations <Lulú Owens - Last Filed: 05/09/24 21:57> - General Exam Comments Initial Comments: Visual Physical Exam Vital signs reviewed General: Well-appearing, nontoxic, no acute distress. Head: Normocephalic, atraumatic Eyes: PERRLA, EOMI ENT: Airway patent Chest: Nonlabored breathing Skin: No visual rash, normal skin tone Neuro: Alert and oriented 3 Musculoskeletal: No gross abnormalities (Lulú Owens) Course Vital Signs 05/09/24 21:39 Temperature 98.3 F Pulse Rate 90 Respiratory 24 Rate Blood Pressure 144/72 O2 Sat by Pulse 99 Oximetry Chest Pain MDM <Lulú Owens - Last Filed: 05/09/24 21:57> - MDM I completed the quick note portion of this chart signed Lulú Owens PA-C (Lulú Owens) Disposition <Lulú Owens - Last Filed: 05/09/24 21:57> <Marc Medrano - Last Filed: 05/17/24 07:40> Clinical Impression: Chest pain Disposition: LEFT AGAINST MEDICAL ADVICE Referrals: Girma Malone MD [Primary Care Provider] - 1-2 days
[2024-05-09 22:21] LABS: Basophils % (A) 0 %; Eosinophils # (A) 0.2 k/uL (0-0.7); Eosinophils % (A) 2 %; HCT 44.1 % (39.0-53.0); HGB 14.5 gm/dL (13.0-17.5); Lymphocytes % (A) 22 %; MCH 31.1 pg (25.0-35.0); MCV 94.3 fL (80.0-100.0); Mean Platelet Volume 8.5; Monocytes # (A) 0.4 k/uL (0-1.0); Monocytes % (A) 5 %; Neutrophils # (A) 6.2 k/uL (1.3-7.7); Neutrophils % (A) 68 %; Platelet Count 252 k/uL (150-450); RBC 4.67 m/uL (4.30-5.90); RDW 14.8 % (11.5-15.5)
[2024-05-09 22:30] LABS: INR 1.1 (<1.2); Partial Thromboplastin Time 28.2 sec (22.0-30.0); Prothrombin Time 11.6 sec (10.0-12.5)
[2024-05-09 22:44] LABS: ALT 12 U/L (4-49); AST 31 U/L (17-59); African American GFR (CKD) >90 (>60 ml/min/1.73 sqM); Albumin 4.4 g/dL (3.5-5.0); Alkaline Phosphatase 83 U/L (38-126); Anion Gap 14 mmol/L; Blood Urea Nitrogen 5 mg/dL (9-20); Calcium 9.1 mg/dL (8.4-10.2); Carbon Dioxide 23 mmol/L (22-30); Chloride 105 mmol/L (98-107); Glucose 104 mg/dL (74-99); Magnesium 1.6 mg/dL (1.6-2.3); Non-African American GFR(CKD) >90 (>60 ml/min/1.73 sqM); Potassium 3.6 mmol/L (3.5-5.1); Sodium 142 mmol/L (137-145); Total Bilirubin 0.5 mg/dL (0.2-1.3); Total Protein 7.9 g/dL (6.3-8.2)
== END 2024-05-09 23:45 | disposition left against medical advice (07) ==
LOC: EC 21:37
DX: R07.89 Other chest pain (principal); Z53.29 Procedure and treatment not carried out because of patient's decision for other reasons; Z87.891 Personal history of nicotine dependence; Z88.2 Allergy status to sulfonamides; Z88.1 Allergy status to other antibiotic agents; Z88.5 Allergy status to narcotic agent; Z88.8 Allergy status to other drugs, medicaments and biological substances
CPT/HCPCS: 36415; 80053; 83735; 84484; 85025; 85610; 85730; 93005; 99284

== ENCOUNTER 2024-05-22 23:27 | Observation (INO) | payer MEDICARE, OTHER ==
[2024-05-23 00:25] LABS: Basophils % (A) 1 %; Eosinophils % (A) 1 %; HCT 38.6 % (39.0-53.0); HGB 12.7 gm/dL (13.0-17.5); Lymphocytes # (A) 2.6 k/uL (1.0-4.8); Lymphocytes % (A) 59 %; MCH 30.9 pg (25.0-35.0); MCHC 32.8 g/dL (31.0-37.0); MCV 94.4 fL (80.0-100.0); Mean Platelet Volume 8.2; Monocytes # (A) 0.2 k/uL (0-1.0); Monocytes % (A) 4 %; Neutrophils # (A) 1.4 k/uL (1.3-7.7); Neutrophils % (A) 33 %; Platelet Count 240 k/uL (150-450); RBC 4.09 m/uL (4.30-5.90); RDW 15.6 % (11.5-15.5); WBC 4.4 k/uL (3.8-10.6)
[2024-05-23 00:45] LABS: ALT 10 U/L (4-49); AST 26 U/L (17-59); African American GFR (CKD) >90 (>60 ml/min/1.73 sqM); Albumin 4.3 g/dL (3.5-5.0); Alkaline Phosphatase 77 U/L (38-126); Anion Gap 16 mmol/L; Blood Urea Nitrogen 22 mg/dL (9-20); Calcium 8.7 mg/dL (8.4-10.2); Carbon Dioxide 16 mmol/L (22-30); Chloride 113 mmol/L (98-107); Glucose 147 mg/dL (74-99); Non-African American GFR(CKD) >90 (>60 ml/min/1.73 sqM); Potassium 4.5 mmol/L (3.5-5.1); Sodium 145 mmol/L (137-145); Total Bilirubin 0.4 mg/dL (0.2-1.3); Total Protein 8.3 g/dL (6.3-8.2)
[2024-05-23 00:58] LABS: Alcohol 349 mg/dL
[2024-05-23 01:39] LABS: INR 0.9 (<1.2); Partial Thromboplastin Time 24.6 sec (22.0-30.0); Prothrombin Time 10.3 sec (10.0-12.5)
[2024-05-23] MEDS: METOPROLOL TARTRATE 5 MG/5 ML VIAL IVP STA ×2 (01:45→02:30)
[2024-05-23] MEDS: MORPHINE SULFATE 4 MG/ML SYRINGE IVP STA ×2 (01:45→03:05)
[2024-05-23] MEDS: SODIUM CHLORIDE 0.9% 1,000 ML IV STA (01:45)
[2024-05-23] MEDS: AMIODARONE 200 MG TAB PO STA (01:48)
[2024-05-23 02:13] LABS: Appearance,Urine Clear (Clear); Bilirubin,Urine Negative (Negative); Blood,Urine Trace (Negative); Color,Urine Colorless; Glucose,Urine (UA) Negative (Negative); Hyaline Casts,Urine 1 /lpf (0-2); Ketones,Urine Negative (Negative); Leukocyte Esterase,Urine Negative (Negative); Mucus,Urine Rare /hpf; Nitrite,Urine Negative (Negative); Protein,Urine 1+ (Negative); RBC,Urine <1 /hpf (0-5); Specific Gravity,Urine 1.011 (1.001-1.035); Urobilinogen,Urine <2.0 mg/dL (<2.0); WBC,Urine 1 /hpf (0-5)
--- NOTE | 2024-05-23 02:20 | ED ---
General Adult HPI - General Chief complaint: Psychiatric Symptoms Stated complaint: Mental health Time Seen by Provider: 05/23/24 00:30 Source: patient, RN notes reviewed, old records reviewed Mode of arrival: ambulatory Limitations: no limitations - History of Present Illness Initial comments: Patient is a 63-year-old male who presents emergency department for suicidal ideations. Plan was to take handfuls of his medications. Has a significant cardiac history including a chronic aortic dissection that he states he is due to be repaired in the upcoming months out of [facility]. States has been more stressful lately. Also has a history of alcohol withdrawals alcohol abuse, atrial fibrillation, asthma, hypertension. Patient did not take any of his medications today. Otherwise he states he has been compliant. He is endorsing chronic chest wall pain as well as chronic spine pain. Is point tenderness over the left chest wall as well as spine that has been present for multiple weeks since he was in the hospital. States he was recently admitted for pneumonia and believes that his pain is from coughing. De nies any other chest pain. Denies abdominal pain but nausea, vomiting. States he was not even aware that he was in A-fib with RVR upon arrival. Presents for further evaluation at this time - Related Data Home Medications Medication Instructions Recorded Confirmed Ondansetron [Zofran ODT] 8 mg PO BID PRN 05/18/18 04/23/24 Bictegrav/Emtricit/Tenofov Ala 1 tab PO DAILY 09/07/21 04/23/24 [Biktarvy 50-200-25 mg Tablet] Darunavir/Cobicistat [Prezcobix 1 tab PO DAILY 09/07/22 04/23/24 800 mg-150 mg Tablet] Ipratropium-Albuterol Nebulize 3 ml INHALATION RT-BID PRN 10/23/23 04/23/24 [Duoneb 0.5 mg-3 mg/3 ml Soln] Albuterol Sulfate [Albuterol 1 - 2 puff INHALATION RT-QID PRN 12/27/23 04/23/24 Sulfate Hfa] Empagliflozin [Jardiance] 10 mg PO DAILY 12/27/23 04/23/24 Sacubitril/Valsartan [Entresto 24 1 tab PO BID 12/27/23 04/23/24 mg-26 mg Tablet] Tamsulosin HCl [Flomax] 0.4 mg PO HS 12/27/23 04/23/24 Fenofibrate Nanocrystallized 48 mg PO DAILY 03/17/24 04/23/24 [Fenofibrate] Levothyroxine Sodium 200 mcg PO DAILY 03/17/24 04/23/24 Pantoprazole [Protonix] 40 mg PO DAILY 03/17/24 04/23/24 Rosuvastatin Calcium 40 mg PO DAILY 03/17/24 04/23/24 hydrOXYzine HCL 10 mg PO Q6H PRN 03/17/24 04/23/24 Apixaban [Eliquis] 2.5 mg PO BID 04/03/24 04/23/24 Bimatoprost [Lumigan 0.01% Ophth 1 drop BOTH EYES HS 04/03/24 04/23/24 Soln] Bumetanide [BUMEX] 1 mg PO DAILY PRN 04/03/24 04/23/24 Colchicine 0.6 mg PO DIRECTED PRN 04/03/24 04/23/24 Gabapentin 600 mg PO TID 04/03/24 04/23/24 allopurinoL 100 mg PO DAILY 04/03/24 04/23/24 Previous Rx's Medication Instructions Recorded oxyCODONE-APAP 10-325MG [Percocet 1 tab PO Q6HR PRN 3 Days #12 tab 03/20/24 10-325 mg] Amiodarone [Cordarone] 400 mg PO BID #60 tab 04/12/24 Metoprolol Tartrate [Lopressor] 25 mg PO BID #60 tab 04/12/24 Spironolactone [Aldactone] 12.5 mg PO DAILY #30 tab 04/12/24 Escitalopram [Lexapro] 10 mg PO DAILY 30 Days #30 tab 04/28/24 Lumigan 1 drop BOTH EYES HS 04/28/24 Thiamine [Vitamin B-1] 100 mg PO DAILY 30 Days #30 tab 04/28/24 hydrOXYzine pamoate [Vistaril] 25 mg PO HS 30 Days #30 cap 04/28/24 Allergies Allergy/AdvReac Type Severity Reaction Status Date / Time abacavir [From Ziagen] Allergy Anaphylaxis Verified 05/22/24 23:36 efavirenz [From Sustiva] Allergy Anaphylaxis Verified 05/22/24 23:36 levofloxacin Allergy Itching Verified 05/22/24 23:36 hydrocodone AdvReac Rapid Verified 05/22/24 23:36 [From [facility]] Heart Rate morphine AdvReac Itching Verified 05/22/24 23:36 sulfamethoxazole AdvReac HIGH Verified 05/22/24 23:36 [From Bactrim] CREATININE LEVEL trimethoprim [From Bactrim] AdvReac HIGH Verified 05/22/24 23:36 CREATININE Review of Systems ROS Statement: Those systems with pertinent positive or pertinent negative responses have been documented in the HPI. Review of Systems: CONST: Denies fever EYES: Denies blurry vision ENT: Denies nasal congestion C/V: Endorses chest wall pain RESP: Denies shortness of breath GI: Denies abdominal pain : Denies dysuria SKIN: Denies rash. MSK: Endorses chronic mid back pain NEURO: Denies headache ROS Other: All systems not noted in ROS Statement are negative. Past Medical History Past Medical History: Atrial Fibrillation, Asthma, Heart Failure, Fibromyalgia, GERD/Reflux, Hypertension, Prostate Disorder Additional Past Medical History / Comment(s): Mitral valve disease w/ MV repair at [facility] [place] 2000, HIV positive, past HTN and recently low blood pressures, BPH, R ankle gout, chronic nausea, bilateral glaucoma, chronic pain syndrome, chronic low back and bilateral hip pain and occasional cervical pain, DDD, lumbar stenosis/spondylosis, abdominal hernia, previous history of drug overdose. PTSD History of Any Multi-Drug Resistant Organisms: None Reported Past Surgical History: Heart Catheterization, Hernia Repair Additional Past Surgical History / Comment(s): Mitral valve repair at [facility], [place] (2000), Type A aortic disection repordedly treated conservatively by [facility] [place], R inguinal hernia x2, L inguinal hernia, epidural injections to back, hip injections, RFAs, spinal cord stimulator trial-removed, Past Anesthesia/Blood Transfusion Reactions: No Reported Reaction Past Psychological History: Anxiety, Depression, PTSD Smoking Status: Former smoker Past Alcohol Use History: Abuse Past Drug Use History: Marijuana, Prescription Drug Abuse - Past Family History Father History Unknown: Yes Additional Family Medical History / Comment(s): Father was injured at work and of complication during his hospitalization. Mother Additional Family Medical History / Comment(s): Mother is from alcoholism. Brother(s) Additional Family Medical History / Comment(s): alcohol and HF General Exam - General Exam Comments Initial Comments: General: Appears in no acute distress. HEAD: Normal with no signs of head trauma. EYES: PERRLA, EOMI, conjunctiva normal, no discharge. ENT: Hearing grossly intact, normal oropharynx. RESPIRATORY: Clear breath sounds bilaterally. No wheezes, rales, or rhonchi. C/V: Irregular rate and rhythm. S1 and S2 auscultated, no edema, peripheral pulses 2+ and intact throughout ABD: Abd is soft, nontender, nondistended EXT: No deformity or obvious injury to the extremities. Patient does have mid back point tenderness to palpation. Patient also has some left-sided rib pain and chest wall pain on palpation. Also worse with movement. Seems to be musculoskeletal in nature. SKIN: No rashes or lesions observed on exposed skin. NEURO: Alert and oriented x 4. Cranial nerves II-XII intact. No focal sensory or strength deficits. Limitations: no limitations Course Vital Signs 05/22/24 05/23/24 05/23/24 23:31 00:37 01:45 Temperature 97.7 F Pulse Rate 111 H 154 H 121 H Respiratory 20 18 16 Rate Blood Pressure 150/90 132/106 162/86 O2 Sat by Pulse 97 97 96 Oximetry 05/23/24 05/23/24 05/23/24 01:58 02:33 03:06 Temperature Pulse Rate 95 92 86 Respiratory 15 16 16 Rate Blood Pressure 133/75 148/100 142/85 O2 Sat by Pulse 96 97 95 Oximetry Medical Decision Making - Medical Decision Making Was pt. sent in by a medical professional or institution (, PA, CODING MANAGER, urgent care, hospital, or [facility]...) When possible be specific @ -No Did you speak to anyone other than the patient for history (EMS, parent, family, police, friend...)? What history was obtained from this source @ -No Did you review nursing and triage notes (agree or disagree)? Why? @ -I reviewed and agree with nursing and triage notes Were old charts reviewed (outside hosp., previous admission, EMS record, old EKG, old radiological studies, urgent care reports/EKG's, [facility] records)? Report findings @ -I reviewed patient's recent admission at our facility for similar complaints of breakthrough A-fib with RVR from April 2024. CT imaging was obtained at that time and there was communication with [facility] with his cardiothoracic team and they stated there was no change in the patient's chronic dissection. Differential Diagnosis (chest pain, altered mental status, abdominal pain women, abdominal pain men, vaginal bleeding, weakness, fever, dyspnea, syncope, headache, dizziness, GI bleed, back pain, seizure, CVA, palpatations, mental health, musculoskeletal)? @ -Differential Chest Pain: Stable Angina, Unstable Angina, STEMI, NSTEMI Aortic Dissection, Pneumothorax, Musculoskeletal, Esophageal Spasm GERD, Cholecystitis, Pancreatitis, Zoster, this is not meant to be an all-inclusive list. Differential Mental Health Depression, anxiety, bipolar, psychosis, schizophrenia, borderline personality, situational depression, adjustment disorder, behavioral disorder, brain tumor, malingering, substance abuse, encephalopathy, medication reaction, dementia, hypothyroidism, degenerative neurologic disorder, lupus.... This is not meant to be all-inclusive list EKG interpreted by me (3pts min.). @ -As above X-rays interpreted by me (1pt min.). @ -None done CT interpreted by me (1pt min.). @ -CT reveals chronic aortic dissection that is stable when compared with prior CT from April. Stable ascending aortic aneurysm as well at 5.2 cm. Both of these are known to the patient. U/S interpreted by me (1pt. min.). @ -None done What testing was considered but not performed or refused? (CT, X-rays, U/S, labs)? Why? @ -None What meds were considered but not given or refused? Why? @ -None Did you discuss the management of the patient with other professionals (professionals i.e. , PA, CODING MANAGER, lab, RT, psych nurse, clinical social work therapist, paste mixer, teacher, police officer, vocational case manager)? Give summary @ -No Was smoking cessation discussed for >3mins.? @ -No Was critical care preformed (if so, how long)? @ -Yes, 38 minutes Were there social determinants of health that impacted care today? How? (Homelessness, low income, unemployed, alcoholism, drug addiction, transportation, low edu. Level, literacy, decrease access to med. care, correction, rehab)? @ -No Was there de-escalation of care discussed even if they declined (Discuss DNR or withdrawal of care, Hospice)? DNR status @ -No What co-morbidities impacted this encounter? (DM, HTN, Smoking, COPD, CAD, Cancer, CVA, ARF, Chemo, Hep., AIDS, mental health diagnosis, sleep apnea, morbid obesity)? @ -Atrial fibrillation, chronic aortic dissection, history of mental health issues Was patient admitted / discharged? Hospital course, mention meds given and route, prescriptions, significant lab abnormalities, going to OR and other pertinent info. @ -Patient presents emergency department complaining of primarily suicidal ideations due to his heart history. Wants to be evaluated by psychiatry. Patient did not take any of his normal medications today. On routine screening, was found to be in atrial fibrillation with RVR and I had the patient placed in room 5. At this time it was disclosed to me that he is having the chest wall pain as well as the chronic back pain. Both have been present for weeks. Seems to be musculoskeletal. However with the patient significant history of the chronic aortic dissection as well as aortic aneurysm, we will obtain CT imaging of the aorta. We will also obtain cardiac workup. He was in agreement this plan. He is in A-fib with RVR and will be given a dose of his oral amiodarone as well as IV push metoprolol. He is started on IV fluids and given analgesia medications. Patient was in agreement this plan. EKG shows A-fib with RVR. Laboratory studies remarkable for alcohol i ntoxication with a level of 349. Troponin is undetectable. CT imaging shows stable aortic dissection and aortic aneurysm. No new changes. I discussed results with the patient. Heart rate following multiple doses of metoprolol is now ranging from 80s to 90s. Patient loaded with his oral metopro lol as well as the amiodarone. He is feeling improved. He will be given a dose of Ativan due to anxiety. We will monitor him for alcohol withdrawal symptoms as well. Patient will be admitted as a medical admit, psychiatry will evaluate him on an inpatient basis. Cardiology Dr. Beal is consulted. Patient was in agreement this plan. I discussed with Dr. Magdaleno who accepted the admission. Undiagnosed new problem with uncertain prognosis? @ -No Drug Therapy requiring intensive monitoring for toxicity (Heparin, Nitro, Insulin, Cardizem)? @ -No Were any procedures done? @ -No Diagnosis/symptom? @ -A-fib with RVR, suicidal ideation, chest pain/ chest wall pain, alcohol intoxication Acute, or Chronic, or Acute on Chronic? @ -Acute Uncomplicated (without systemic symptoms) or Complicated (systemic symptoms)? @ -Complicated Side effects of treatment? @ -No Exacerbation, Progression, or Severe Exacerbation? @ -No Poses a threat to life or bodily function? How? (Chest pain, [place], [place], pneumonia, PE, COPD, DKA, ARF, appy, cholecystitis, CVA, Diverticulitis, Homicidal, Suicidal, threat to staff... and all critical care pts) @ -Yes - Lab Data Result diagrams: 05/23/24 00:03 05/23/24 00:03 Lab Results 05/23/24 05/23/24 05/23/24 Range/Units 00:03 00:03 01:11 WBC 4.4 (3.8-10.6) k/uL RBC 4.09 L (4.30-5.90) m/uL Hgb 12.7 L (13.0-17.5) gm/dL Hct 38.6 L (39.0-53.0) % MCV 94.4 (80.0-100.0) fL MCH 30.9 (25.0-35.0) pg MCHC 32.8 (31.0-37.0) g/dL RDW 15.6 H (11.5-15.5) % Plt Count 240 (150-450) k/uL MPV 8.2 Neutrophils % 33 % Lymphocytes % 59 % Monocytes % 4 % Eosinophils % 1 % Basophils % 1 % Neutrophils # 1.4 (1.3-7.7) k/uL Lymphocytes # 2.6 (1.0-4.8) k/uL Monocytes # 0.2 (0-1.0) k/uL Eosinophils # 0.0 (0-0.7) k/uL Basophils # 0.0 (0-0.2) k/uL PT 10.3 (10.0-12.5) sec INR 0.9 (<1.2) APTT 24.6 (22.0-30.0) sec Sodium 145 (137-145) mmol/L Potassium 4.5 (3.5-5.1) mmol/L Chloride 113 H (98-107) mmol/L Carbon Dioxide 16 L (22-30) mmol/L Anion Gap 16 mmol/L BUN 22 H (9-20) mg/dL Creatinine 0.80 (0.66-1.25) mg/dL Est GFR (CKD-EPI)AfAm >90 (>60 ml/min/1.73 sqM) Est GFR (CKD-EPI)NonAf >90 (>60 ml/min/1.73 sqM) Glucose 147 H (74-99) mg/dL Calcium 8.7 (8.4-10.2) mg/dL Total Bilirubin 0.4 (0.2-1.3) mg/dL AST 26 (17-59) U/L ALT 10 (4-49) U/L Alkaline Phosphatase 77 (38-126) U/L Troponin I (0.000-0.034) ng/mL Total Protein 8.3 H (6.3-8.2) g/dL Albumin 4.3 (3.5-5.0) g/dL Urine Color Urine Appearance (Clear) Urine pH (5.0-8.0) Ur Specific [place] (1.001-1.035) Urine Protein (Negative) Urine Glucose (UA) (Negative) Urine Ketones (Negative) Urine Blood (Negative) Urine Nitrite (Negative) Urine Bilirubin (Negative) Urine Urobilinogen (<2.0) mg/dL Ur Leukocyte Esterase (Negative) Urine RBC (0-5) /hpf Urine WBC (0-5) /hpf Hyaline Casts (0-2) /lpf Urine Mucus (None) /hpf Urine Opiates Screen (NotDetected) Ur Oxycodone Screen (NotDetected) Urine Methadone Screen (NotDetected) Ur Barbiturates Screen (NotDetected) U Tricyclic Antidepress (NotDetected) Ur Phencyclidine Scrn (NotDetected) Ur Amphetamines Screen (NotDetected) U Methamphetamines Scrn (NotDetected) U Benzodiazepines Scrn (NotDetected) Urine Cocaine Screen (NotDetected) U Marijuana (THC) Screen (NotDetected) Serum Alcohol 349 H* mg/dL 05/23/24 05/23/24 05/23/24 Range/Units 01:14 01:50 01:51 WBC (3.8-10.6) k/uL RBC (4.30-5.90) m/uL Hgb (13.0-17.5) gm/dL Hct (39.0-53.0) % MCV (80.0-100.0) fL MCH (25.0-35.0) pg MCHC (31.0-37.0) g/dL RDW (11.5-15.5) % Plt Count (150-450) k/uL MPV Neutrophils % % Lymphocytes % % Monocytes % % Eosinophils % % Basophils % % Neutrophils # (1.3-7.7) k/uL Lymphocytes # (1.0-4.8) k/uL Monocytes # (0-1.0) k/uL Eosinophils # (0-0.7) k/uL Basophils # (0-0.2) k/uL PT (10.0-12.5) sec INR (<1.2) APTT (22.0-30.0) sec Sodium (137-145) mmol/L Potassium (3.5-5.1) mmol/L Chloride (98-107) mmol/L Carbon Dioxide (22-30) mmol/L Anion Gap mmol/L BUN (9-20) mg/dL Creatinine (0.66-1.25) mg/dL Est GFR (CKD-EPI)AfAm (>60 ml/min/1.73 sqM) Est GFR (CKD-EPI)NonAf (>60 ml/min/1.73 sqM) Glucose (74-99) mg/dL Calcium (8.4-10.2) mg/dL Total Bilirubin (0.2-1.3) mg/dL AST (17-59) U/L ALT (4-49) U/L Alkaline Phosphatase (38-126) U/L Troponin I <0.012 (0.000-0.034) ng/mL Total Protein (6.3-8.2) g/dL Albumin (3.5-5.0) g/dL Urine Color Colorless Urine Appearance Clear (Clear) Urine pH 5.0 (5.0-8.0) Ur Specific [place] 1.011 (1.001-1.035) Urine Protein 1+ H (Negative) Urine Glucose (UA) Negative (Negative) Urine Ketones Negative (Negative) Urine Blood Trace H (Negative) Urine Nitrite Negative (Negative) Urine Bilirubin Negative (Negative) Urine Urobilinogen <2.0 (<2.0) mg/dL Ur Leukocyte Esterase Negative (Negative) Urine RBC <1 (0-5) /hpf Urine WBC 1 (0-5) /hpf Hyaline Casts 1 (0-2) /lpf Urine Mucus Rare H (None) /hpf Urine Opiates Screen Not Detected (NotDetected) Ur Oxycodone Screen Not Detected (NotDetected) Urine Methadone Screen Not Detected (NotDetected) Ur Barbiturates Screen Not Detected (NotDetected) U Tricyclic Antidepress Not Detected (NotDetected) Ur Phencyclidine Scrn Not Detected (NotDetected) Ur Amphetamines Screen Not Detected (NotDetected) U Methamphetamines Scrn Not Detected (NotDetected) U Benzodiazepines Scrn Detected H (NotDetected) Urine Cocaine Screen Not Detected (NotDetected) U Marijuana (THC) Screen Not Detected (NotDetected) Serum Alcohol mg/dL - EKG Data -: EKG Interpreted by Me EKG Comments: 12-lead Electrocardiogram Interpretation Note EKG was reviewed and interpreted by myself. 12-lead ECG performed at 0014 is interpreted by me as revealing A-fib with RVR at a rate of 129 beats per minute. Left axis deviation. QRS duration is 126 ms, QTc is 409 ms.. There were no ST or T wave abnormalities to suggest myocardial ischemia or injury. R wave progression across the precordium was satisfactory. By my interpretation this EKG is non-diagnostic for acute ischemia. Critical Care Time Critical Care Time: Yes Total Critical Care Time: 38 Disposition Clinical Impression: Chest pain, Atrial fibrillation with RVR, Suicidal ideations, H/O chronic diss ection of thoracic aorta, Alcohol intoxication Disposition: ADMITTED IP TO THIS HOSP Condition: Serious Time of Disposition: 03:20
[2024-05-23] MEDS: METOPROLOL TARTRATE 50 MG TAB PO STA (02:30)
[2024-05-23 02:32] LABS: Amphetamine Screen,Urine Not Detected (NotDetected); Barbiturate Screen,Urine Not Detected (NotDetected); Benzodiazepines Screen,Urine Detected (NotDetected); Cocaine Screen,Urine Not Detected (NotDetected); Methadone Screen, Urine Not Detected (NotDetected); Opiate Screen,Urine Not Detected (NotDetected); Oxycodone Screen, Urine Not Detected (NotDetected); Phencyclidine Screen,Urine Not Detected (NotDetected); Tricyclic Antidepressant,Urine Not Detected (NotDetected); Urn Cannabinoid Scrn Not Detected (NotDetected)
--- NOTE | 2024-05-23 02:43 | CT ---
EXAMINATION TYPE: CT angio thor/abd pel aorta DATE OF EXAM: 05/23/2024 COMPARISON: CT thorax and CT abdomen and pelvis April 07, 2024 HISTORY: Known dissection Automated Exposure Control for Dose Reduction was Utilized. CONTRAST: CTA scan of the thorax, abdomen and pelvis is performed without and with IV Contrast, patient injecte d with 100 mL of Isovue 300. FINDINGS: VASCULAR: Persistent linear density or dissection in the aortic arch without extension into the great vessels. There is continuation into the ascending and descending aorta redemonstrated. This is a 5.2 cm ascending aortic aneurysm is redemonstrated axial image 72. Dissection extends into the abdominal aorta and iliac branch vessels bilaterally with extension into the right internal iliac artery again seen. There is extension into the right external iliac artery which continues into the right common femoral artery similar to prior. LUNGS: The lungs are grossly clear, there is no concerning parenchymal mass or focal consolidation id entified. There is no pleural effusion or pneumothorax seen. The tracheobronchial tree is patent. MEDIASTINUM: There are no greater than 1 cm hilar or mediastinal lymph nodes. No cardiomegaly or pe ricardial effusion is seen. Coronary artery calcification is redemonstrated. OTHER: Bilateral subareolar gynecomastia is redemonstrated. LIVER/GB: No significant abnormality is appreciated. PANCREAS: No significant abnormality is seen. SPLEEN: No significant abnormality is seen. ADRENALS: No significant abnormality is seen. KIDNEYS: Asymmetric cortical thinning right kidney is redemonstrated. BOWEL: No significant abnormality is seen. GENITAL ORGANS: No gross abnormality seen. LYMPH NODES: No greater than 1cm abdominal or pelvic lymph nodes are appreciated. OSSEOUS STRUCTURES: Metallic hardware from total left hip arthroplasty is redemonstrated. Dextroconve x scoliosis in the to lower thoracic spine is seen. OTHER: No significant additional abnormality is seen. IMPRESSION: Stable dissection running from the aortic root into the right groin region as detailed ab ove. No significant change from most recent prior CTs. No acute findings are present. [facility], , 05/23/2024 2:40 AM
[2024-05-23] MEDS: LORazepam 2 MG/ML INJ IV STA (03:23)
[2024-05-23] MEDS ORDERED: LORazepam 1 MG TAB PO PRN (03:29)
[2024-05-23] MEDS ORDERED: LORazepam 0.5 MG TAB PO PRN (03:29)
[2024-05-23] MEDS ORDERED: ACETAMINOPHEN TAB 325 MG TAB PO PRN (03:29)
[2024-05-23] MEDS ORDERED: NALOXONE 0.4 MG/ML 1 ML VIAL IV PRN (03:29)
[2024-05-23] MEDS: MORPHINE SULFATE 4 MG/ML SYRINGE IV PRN (05:45)
[2024-05-23] MEDS: LORazepam 1 MG TAB PO PRN (05:45)
[2024-05-23] MEDS: SODIUM CHLORIDE 0.9% 1,000 ML IV SCH (05:49)
[2024-05-23] MEDS ORDERED: IPRATROPIUM-ALBUTEROL 3 ML NEB INHALATION PRN (09:14)
[2024-05-23] MEDS: PANTOPRAZOLE 40 MG TABLET PO SCH (10:25)
[2024-05-23] MEDS: GABAPENTIN 300 MG CAP PO SCH (10:25)
[2024-05-23] MEDS: SPIRONOLACTONE 25 MG TAB PO SCH (10:26)
[2024-05-23] MEDS: APIXABAN 2.5 MG TABLET PO SCH (10:26)
[2024-05-23] MEDS: allopurinoL 100 MG TAB PO SCH (10:26)
[2024-05-23] MEDS: SACUBITRIL/VALSARTAN 24 MG-26 MG TABLET PO SCH (10:26)
[2024-05-23] MEDS: DAPAGLIFLOZIN PROPANEDIOL 5 MG TABLET PO SCH (10:27)
[2024-05-23] MEDS: ESCITALOPRAM 10 MG TAB PO SCH (10:27)
[2024-05-23] MEDS: METOPROLOL TARTRATE 25 MG TAB PO SCH (10:27)
[2024-05-23] MEDS: AMIODARONE 200 MG TAB PO SCH (10:27)
[2024-05-23] MEDS: LEVOTHYROXINE 100 MCG TAB PO SCH (10:28)
[2024-05-23] MEDS: ATORVASTATIN 80 MG TAB PO SCH (10:28)
[2024-05-23] MEDS: [UNRECOGNIZED DRUG - OTHER] PO SCH (10:29)
[2024-05-23] MEDS: COBICISTAT PO SCH (10:29)
[2024-05-23] MEDS: DARUNAVIR PO SCH (10:29)
[2024-05-23] MEDS: oxyCODONE-APAP 10-325MG 1 EACH TAB PO PRN (10:31)
[2024-05-23] MEDS: FENOFIBRATE 54 MG TAB PO SCH (10:31)
[2024-05-23] MEDS: NON FORMULARY DRUG (Bictegrav/Emtricit/Tenofov Ala [Biktarvy 50-200-25 Mg Tablet] 1 EACH T PO SCH (10:35)
--- NOTE | 2024-05-23 12:22 | P.CRDCN ---
History of Present Illness Consult date: 05/23/24 Reason for Consult (text): A-fib with RVR History of present illness: This is a 63-year-old male patient of Dr. Morales with past medical history of coronary artery disease on CTA with 70% proximal LAD and dilatation of ascending aorta at 4.8 cm, valvular heart disease status post mitral valve repair, chronic ascending aortic dissection and ascending aortic aneurysm, paroxysmal atrial fibrillation, cardiomyopathy, hypertension, dyslipidemia, HIV, alcohol abuse, avascular necrosis of the left hip. Guarding patient's aortic dissection in the ascending aorta managed conservatively through a vascular surgeon at [facility]. We have been asked to evaluate the patient for A-fib with RVR. Patient gives history that he has a lot of chest pain in his ribs and his head for a week. He denies any injury a week ago but 2 weeks ago he did have a fall is his walker shifted and he fell down onto his knees. He states at that time he did not injure his chest. He feels like he has been hit with a sledgehammer. It is sharp and persistent and not better with any treatment. Regarding aneurysm, he follows at the [facility] and apparently was recently hospitalized and was determined that he will require surgical intervention. He has a follow-up appointment with the surgeon on June 03. Blood pressure 141/79, heart rate 99, pulse ox 94% on room air. Patient is seen today in the emergency center waiting for a bed on the cardiac stepdown unit. Patient has been started on his home cardiac medications and started on the CIWA protocol. -EKG: Atrial fibrillation with ventricular rate of 129 bpm -CT angiogram of the thoracic abdominal and pelvic aorta revealed stable dissection running from the aortic root into the right groin region. No significant change from most recent prior CTs. No acute findings. -Laboratory studies: WBC 4.4, hemoglobin 12.7. Sodium 145, potassium 4.5, CO2 16, BUN 22 creatinine 0.8. Troponin negative x 2. Serum alcohol 349. Drug screen positive for benzodiazepines. -Home cardiac medications: Amiodarone 400 mg twice daily, Eliquis 2.5 mg twice daily, Bumex 1 mg daily as needed, Jardiance 10 mg daily, fenofibrate 48 mg daily, Lopressor 25 mg twice daily, Crestor 40 mg daily, Entresto 24-26 mg 1 twice daily, Aldactone 12.5 mg daily, patient is also on levothyroxine 200 mcg daily. -Echocardiogram performed 04/08/2024 reveals EF 35%, severe biatrial dilatation, moderate MR, moderate to severe AR, aortic dissection flap noticed in the ascending aorta, no pericardial effusion. Review Of Systems: At the time of my exam: CONSTITUTIONAL: Denies fever or chills. HEENT: Denies blurred vision, vision changes, or eye pain. Denies hemoptysis CARDIOVASCULAR: Reports chest pain. Denies orthopnea. Denies PND. Denies palpitations RESPIRATORY: Denies shortness of breath. GASTROINTESTINAL: Denies abdominal pain. Denies nausea or vomiting. HEMATOLOGIC: Denies bleeding disorders. GENITOURINARY: Denies any blood in urine. SKIN: Denies puritis. Denies rash. Physical examination: Gen: This is a 63-year-old male in no acute distress VS: reviewed HEENT: Head is atraumatic, normocephalic. Pupils equal, round. Sclerae is anicteric. NECK: Supple. No JVD. LUNGS: Clear to auscultation. No wheezes or rhonchi. No intercostal retractions. HEART: Regular rate and rhythm. Systolic murmur. + Chest wall tenderness. ABDOMEN: Soft No tenderness. EXTREMITIES: No pedal edema. No calf tenderness. NEUROLOGICAL: Patient is awake, alert and oriented x3. Assessment: Paroxysmal atrial fibrillation presenting with RVR, currently rate controlled EtOH intoxication History of coronary artery disease on CTA with 70% of the LAD Aortic dissection, stable Ascending aortic aneurysm Mitral valve repair Paroxysmal atrial fibrillation Cardiomyopathy Hypertension Dyslipidemia HIV Avascular necrosis of the left hip Plan: Resume patient's home cardiac medications Continue WA protocol Obtain third troponin Obtain TSH Consult vascular surgery for evaluation of stability of AAA No need to repeat echocardiogram as this was done 04/08/2024 Further recommendations to follow based upon clinical course Thank you kindly for this consultation. Nurse practitioner note has been reviewed, I agree with documented findings and plan of care. Patient was seen and examined. Past Medical History Past Medical History: Atrial Fibrillation, Asthma, Heart Failure, Fibromyalgia, GERD/Reflux, Hypertension, Prostate Disorder Additional Past Medical History / Comment(s): Mitral valve disease w/ MV repair at [facility] 2000, HIV positive, past HTN and recently low blood pressures, BPH, R ankle gout, chronic nausea, bilateral glaucoma, chronic pain syndrome, chronic low back and bilateral hip pain and occasional cervical pain, DDD, lumbar stenosis/spondylosis, abdominal hernia, previous history of drug overdose. PTSD History of Any Multi-Drug Resistant Organisms: None Reported Past Surgical History: Heart Catheterization, Hernia Repair Additional Past Surgical History / Comment(s): Mitral valve repair at [facility] (2000), Type A aortic disection repordedly treated conservatively by [facility], R inguinal hernia x2, L inguinal hernia, epidural injections to back, hip injections, RFAs, spinal cord stimulator trial-removed, Past Anesthesia/Blood Transfusion Reactions: No Reported Reaction Past Psychological History: Anxiety, Depression, PTSD Smoking Status: Former smoker Past Alcohol Use History: Abuse Past Drug Use History: Marijuana, Prescription Drug Abuse - Past Family History Father History Unknown: Yes Additional Family Medical History / Comment(s): Father was injured at work and of complication during his hospitalization. Mother Additional Family Medical History / Comment(s): Mother is from [facility]. Brother(s) Additional Family Medical History / Comment(s): alcohol and HF Medications and Allergies Home Medications Medication Instructions Recorded Confirmed Type Bictegrav/Emtricit/Tenofov Ala 1 tab PO DAILY 09/07/21 05/23/24 History [Biktarvy 50-200-25 mg Tablet] Darunavir/Cobicistat [Prezcobix 1 tab PO DAILY 09/07/22 05/23/24 History 800 mg-150 mg Tablet] Albuterol Sulfate [Albuterol 1 - 2 puff INHALATION RT-QID PRN 12/27/23 05/23/24 History Sulfate Hfa] Empagliflozin [Jardiance] 10 mg PO DAILY 12/27/23 05/23/24 History Sacubitril/Valsartan [Entresto 24 1 tab PO BID 12/27/23 05/23/24 History mg-26 mg Tablet] Fenofibrate Nanocrystallized 48 mg PO DAILY 03/17/24 05/23/24 History [Fenofibrate] Levothyroxine Sodium 200 mcg PO DAILY 03/17/24 05/23/24 History oxyCODONE-APAP 10-325MG [Percocet 1 tab PO Q6HR PRN 3 Days #12 tab 03/20/24 05/23/24 Rx 10-325 mg] Apixaban [Eliquis] 2.5 mg PO BID 04/03/24 05/23/24 History Bimatoprost [Lumigan 0.01% Ophth 1 drop BOTH EYES HS 04/03/24 05/23/24 History Soln] Bumetanide [BUMEX] 1 mg PO BID PRN 04/03/24 05/23/24 History Colchicine 0.6 mg PO DIRECTED PRN 04/03/24 05/23/24 History allopurinoL 100 mg PO DAILY 04/03/24 05/23/24 History Escitalopram [Lexapro] 10 mg PO DAILY 30 Days #30 tab 04/28/24 05/23/24 Rx Thiamine [Vitamin B-1] 100 mg PO DAILY 30 Days #30 tab 04/28/24 05/23/24 Rx Amiodarone [Cordarone] 200 mg PO BID 05/23/24 05/23/24 History Cholecalciferol [Vitamin D3 (25 25 mcg PO DAILY 05/23/24 05/23/24 History Mcg = 1000 Iu)] Lidocaine 5% Patch [Lidoderm] 1 patch TOPICAL DAILY 05/23/24 05/23/24 History Metoprolol Succinate (ER) [Toprol 50 mg PO DAILY 05/23/24 05/23/24 History Xl] Mirtazapine 7.5 mg PO HS 05/23/24 05/23/24 History Multivitamins, Thera [Multivitamin 1 tab PO DAILY 05/23/24 05/23/24 History (formulary)] Omeprazole [PriLOSEC] 40 mg PO DAILY 05/23/24 05/23/24 History Rosuvastatin [Crestor] 20 mg PO DAILY 05/23/24 05/23/24 History Allergies Allergy/AdvReac Type Severity Reaction Status Date / Time abacavir [From Ziagen] Allergy Anaphylaxis Verified 05/23/24 10:55 efavirenz [From Sustiva] Allergy Anaphylaxis Verified 05/23/24 10:55 levofloxacin Allergy Itching Verified 05/23/24 10:55 hydrocodone AdvReac Rapid Verified 05/23/24 10:55 [From Hysingla ER] Heart Rate morphine AdvReac Itching Verified 05/23/24 10:55 sulfamethoxazole AdvReac HIGH Verified 05/23/24 10:55 [From Bactrim] CREATININE LEVEL trimethoprim [From Bactrim] AdvReac HIGH Verified 05/23/24 10:55 CREATININE Physical Exam Vitals: Vital Signs Temp Pulse Resp BP Pulse Ox 05/23/24 08:48 97.6 F 99 18 141/79 94 L 05/23/24 06:43 75 16 132/83 95 05/23/24 05:38 97.9 F 77 18 133/73 96 05/23/24 03:06 86 16 142/85 95 05/23/24 02:33 92 16 148/100 97 05/23/24 01:58 95 15 133/75 96 05/23/24 01:45 121 H 16 162/86 96 05/23/24 00:37 154 H 18 132/106 97 05/22/24 23:31 97.7 F 111 H 20 150/90 97 Intake and Output 05/22/24 05/23/24 05/23/24 22:59 06:59 14:59 Other: Weight 78.925 kg Results 05/23/24 00:03 05/23/24 00:03 Cardiac Enzymes 05/23/24 05/23/24 05/23/24 Range/Units 00:03 01:14 07:12 AST 26 (17-59) U/L Troponin I <0.012 0.018 (0.000-0.034) ng/mL Coagulation 05/23/24 Range/Units 01:11 PT 10.3 (10.0-12.5) sec APTT 24.6 (22.0-30.0) sec CBC 05/23/24 Range/Units 00:03 WBC 4.4 (3.8-10.6) k/uL RBC 4.09 L (4.30-5.90) m/uL Hgb 12.7 L (13.0-17.5) gm/dL Hct 38.6 L (39.0-53.0) % Plt Count 240 (150-450) k/uL Comprehensive Metabolic Panel 05/23/24 Range/Units 00:03 Sodium 145 (137-145) mmol/L Potassium 4.5 (3.5-5.1) mmol/L Chloride 113 H (98-107) mmol/L Carbon Dioxide 16 L (22-30) mmol/L BUN 22 H (9-20) mg/dL Creatinine 0.80 (0.66-1.25) mg/dL Glucose 147 H (74-99) mg/dL Calcium 8.7 (8.4-10.2) mg/dL AST 26 (17-59) U/L ALT 10 (4-49) U/L Alkaline Phosphatase 77 (38-126) U/L Total Protein 8.3 H (6.3-8.2) g/dL Albumin 4.3 (3.5-5.0) g/dL Current Medications Generic Name Dose Route Start Last Admin Trade Name Freq PRN Reason Stop Dose Admin Acetaminophen 650 mg 05/23/24 03:29 Acetaminophen Tab 325 Mg Tab PO Q6HR PRN Mild Pain or Fever > 100.5 Sodium Chloride 1,000 mls @ 75 mls/hr 05/23/24 03:30 05/23/24 05:49 Saline 0.9% IV 75 mls/hr .[id number] ALEX Administration Lorazepam 0.5 mg 05/23/24 03:29 Lorazepam 0.5 Mg Tab PO Q4HR PRN Ciwa 4 To 5 Lorazepam 1 mg 05/23/24 03:29 Lorazepam 1 Mg Tab PO Q4HR PRN Ciwa 6 To 7 Lorazepam 2 mg 05/23/24 03:29 Lorazepam 1 Mg Tab PO Q2HR PRN Ciwa 10 or greater Lorazepam 2 mg 05/23/24 03:29 05/23/24 05:45 Lorazepam 1 Mg Tab PO 2 mg Q3HR PRN Administration Ciwa 8 To 9 Morphine Sulfate 4 mg 05/23/24 03:29 05/23/24 05:45 Morphine Sulfate 4 Mg/Ml Syringe IV 4 mg Q4HR PRN Administration Severe Pain (Scale 7 to 10) Naloxone HCl 0.2 mg 05/23/24 03:29 Naloxone 0.4 Mg/Ml 1 Ml Vial IV Q2M PRN Opioid Reversal Intake and Output 05/22/24 05/23/24 05/23/24 22:59 06:59 14:59 Other: Weight 78.925 kg 05/23/24 00:03 05/23/24 00:03
--- NOTE | 2024-05-23 13:22 | P.GSCN ---
History of Present Illness Consult date: 05/23/24 Reason for Consult: AAA Requesting physician: Brady Bobby History of present illness: This is a 63-year-old male with a past medical history including hypertension, hyperlipidemia, HIV, previous IV drug use, alcohol abuse, atrial fibrillation on Eliquis, mitral valve repair, former tobacco dependence, marijuana use and chronic type a aortic dissection who follows with [facility]. Patient presented to the emergency department yesterday with complaints of chest wall pain. States he has chest wall pain on the left side is mostly alongside the his ribs. He was recently hospitalized and diagnosed with pneumonia. He was discharged last week Sunday. He did also recently fall states that he was using his walker and his 1 break does not work his walker went [address] and he went the other and remembers falling but not striking his ribs however he states that he does recall stretching quite a bit. He denies any chest pain, abdominal pain, shortness of breath, nausea or vomiting. He has a history of ascending aortic aneurysm with stable aortic dissection. Cardiology consulted vascular surgery for AAA dissection. He has a scheduled appointment with cardiothoracic surgeon at [facility] on June. Blood pressures are stable 130s over 80s, heart rate 90 respiratory rate 18. Labs are unremarkable. Serum alcohol 349. Review of Systems A 14 point review systems was completed all pertinent positives and negatives as stated in the HPI. Past Medical History Past Medical History: Atrial Fibrillation, Asthma, Heart Failure, Fibromyalgia, GERD/Reflux, Hypertension, Prostate Disorder Additional Past Medical History / Comment(s): Mitral valve disease w/ MV repair at [facility] 2000, HIV positive, past HTN and recently low blood pressures, BPH, R ankle gout, chronic nausea, bilateral glaucoma, chronic pain syndrome, chronic low back and bilateral hip pain and occasional cervical pain, DDD, lumbar stenosis/spondylosis, abdominal hernia, previous history of drug overdose. PTSD History of Any Multi-Drug Resistant Organisms: None Reported Past Surgical History: Heart Catheterization, Hernia Repair Additional Past Surgical History / Comment(s): Mitral valve repair at [facility] (2000), Type A aortic disection repordedly treated conservatively by [facility], R inguinal hernia x2, L inguinal hernia, epidural injections to back, hip injections, RFAs, spinal cord stimulator trial-removed, Past Anesthesia/Blood Transfusion Reactions: No Reported Reaction Past Psychological History: Anxiety, Depression, PTSD Smoking Status: Former smoker Past Alcohol Use History: Abuse Past Drug Use History: Marijuana, Prescription Drug Abuse - Past Family History Father History Unknown: Yes Additional Family Medical History / Comment(s): Father was injured at work and of complication during his hospitalization. Mother Additional Family Medical History / Comment(s): Mother is from alcoholism. Brother(s) Additional Family Medical History / Comment(s): alcohol and HF Medications and Allergies Home Medications Medication Instructions Recorded Confirmed Type Bictegrav/Emtricit/Tenofov Ala 1 tab PO DAILY 09/07/21 05/23/24 History [Biktarvy 50-200-25 mg Tablet] Darunavir/Cobicistat [Prezcobix 1 tab PO DAILY 09/07/22 05/23/24 History 800 mg-150 mg Tablet] Albuterol Sulfate [Albuterol 1 - 2 puff INHALATION RT-QID PRN 12/27/23 05/23/24 History Sulfate Hfa] Empagliflozin [Jardiance] 10 mg PO DAILY 12/27/23 05/23/24 History Sacubitril/Valsartan [Entresto 24 1 tab PO BID 12/27/23 05/23/24 History mg-26 mg Tablet] Fenofibrate Nanocrystallized 48 mg PO DAILY 03/17/24 05/23/24 History [Fenofibrate] Levothyroxine Sodium 200 mcg PO DAILY 03/17/24 05/23/24 History oxyCODONE-APAP 10-325MG [Percocet 1 tab PO Q6HR PRN 3 Days #12 tab 03/20/2405/03 Rx 10-325 mg] Apixaban [Eliquis] 2.5 mg PO BID 04/03/24 05/23/24 History Bimatoprost [Lumigan 0.01% Ophth 1 drop BOTH EYES HS 04/03/24 05/23/24 History Soln] Bumetanide [BUMEX] 1 mg PO BID PRN 04/03/24 05/23/24 History Colchicine 0.6 mg PO DIRECTED PRN 04/03/24 05/23/24 History allopurinoL 100 mg PO DAILY 04/03/24 05/23/24 History Escitalopram [Lexapro] 10 mg PO DAILY 30 Days #30 tab 04/28/24 05/23/24 Rx Thiamine [Vitamin B-1] 100 mg PO DAILY 30 Days #30 tab 04/28/24 05/23/24 Rx Amiodarone [Cordarone] 200 mg PO BID 05/23/24 05/23/24 History Cholecalciferol [Vitamin D3 (25 25 mcg PO DAILY 05/23/24 05/23/24 History Mcg = 1000 Iu)] Lidocaine 5% Patch [Lidoderm] 1 patch TOPICAL DAILY 05/23/24 05/23/24 History Metoprolol Succinate (ER) [Toprol 50 mg PO DAILY 05/23/24 05/23/24 History Xl] Mirtazapine 7.5 mg PO HS 05/23/24 05/23/24 History Multivitamins, Thera [Multivitamin 1 tab PO DAILY 05/23/24 05/23/24 History (formulary)] Omeprazole [PriLOSEC] 40 mg PO DAILY 05/23/24 05/23/24 History Rosuvastatin [Crestor] 20 mg PO DAILY 05/23/24 05/23/24 History Allergies Allergy/AdvReac Type Severity Reaction Status Date / Time abacavir [From Ziagen] Allergy Anaphylaxis Verified 05/23/24 10:55 efavirenz [From Sustiva] Allergy Anaphylaxis Verified 05/23/24 10:55 levofloxacin Allergy Itching Verified 05/23/24 10:55 hydrocodone AdvReac Rapid Verified 05/23/24 10:55 [From Hysingla ER] Heart Rate morphine AdvReac Itching Verified 05/23/24 10:55 sulfamethoxazole AdvReac HIGH Verified 05/23/24 10:55 [From Bactrim] CREATININE LEVEL trimethoprim [From Bactrim] AdvReac HIGH Verified 05/23/24 10:55 CREATININE Surgical - Exam Vital Signs Temp Pulse Resp BP Pulse Ox 97.7 F 111 H 20 150/90 97 05/22/24 23:31 05/22/24 23:31 05/22/24 23:31 05/22/24 23:31 05/22/24 23:31 General appearance: The patient is alert, oriented, appears in no acute distress. HET: Head is normocephalic and atraumatic. Pupils are equal and reactive. Neck: Supple. Heart: Regular. Lungs: Equal expansion, normal respiratory effort. Chest wall: Tender to palpation along the left chest wall and intercostal spaces. Abdomen: Soft, nontender, nondistended. Extremities: Normal skin color and turgor. Neurological: No focal deficits. Strength and sensation are grossly intact. Results - Labs 05/23/24 00:03 05/23/24 00:03 Abnormal Lab Results - Last 24 Hours (Table) 05/23/24 05/23/24 05/23/24 Range/Units 00:03 00:03 01:50 RBC 4.09 L (4.30-5.90) m/uL Hgb 12.7 L (13.0-17.5) gm/dL Hct 38.6 L (39.0-53.0) % RDW 15.6 H (11.5-15.5) % Chloride 113 H (98-107) mmol/L Carbon Dioxide 16 L (22-30) mmol/L BUN 22 H (9-20) mg/dL Glucose 147 H (74-99) mg/dL Total Protein 8.3 H (6.3-8.2) g/dL Urine Protein (Negative) Urine Blood (Negative) Urine Mucus (None) /hpf U Benzodiazepines Scrn Detected H (NotDetected) Serum Alcohol 349 H* mg/dL 05/23/24 Range/Units 01:51 RBC (4.30-5.90) m/uL Hgb (13.0-17.5) gm/dL Hct (39.0-53.0) % RDW (11.5-15.5) % Chloride (98-107) mmol/L Carbon Dioxide (22-30) mmol/L BUN (9-20) mg/dL Glucose (74-99) mg/dL Total Protein (6.3-8.2) g/dL Urine Protein 1+ H (Negative) Urine Blood Trace H (Negative) Urine Mucus Rare H (None) /hpf U Benzodiazepines Scrn (NotDetected) Serum Alcohol mg/dL Diabetes panel 05/23/24 Range/Units 00:03 Sodium 145 (137-145) mmol/L Potassium 4.5 (3.5-5.1) mmol/L Chloride 113 H (98-107) mmol/L Carbon Dioxide 16 L (22-30) mmol/L BUN 22 H (9-20) mg/dL Creatinine 0.80 (0.66-1.25) mg/dL Glucose 147 H (74-99) mg/dL Calcium 8.7 (8.4-10.2) mg/dL AST 26 (17-59) U/L ALT 10 (4-49) U/L Alkaline Phosphatase 77 (38-126) U/L Total Protein 8.3 H (6.3-8.2) g/dL Albumin 4.3 (3.5-5.0) g/dL Thyroid panel 05/23/24 Range/Units 08:35 TSH 0.856 (0.465-4.680) mIU/L Calcium panel 05/23/24 Range/Units 00:03 Calcium 8.7 (8.4-10.2) mg/dL Albumin 4.3 (3.5-5.0) g/dL Pituitary panel 05/23/24 05/23/24 Range/Units 00:03 08:35 Sodium 145 (137-145) mmol/L Potassium 4.5 (3.5-5.1) mmol/L Chloride 113 H (98-107) mmol/L Carbon Dioxide 16 L (22-30) mmol/L BUN 22 H (9-20) mg/dL Creatinine 0.80 (0.66-1.25) mg/dL Glucose 147 H (74-99) mg/dL Calcium 8.7 (8.4-10.2) mg/dL TSH 0.856 (0.465-4.680) mIU/L Adrenal panel 05/23/24 Range/Units 00:03 Sodium 145 (137-145) mmol/L Potassium 4.5 (3.5-5.1) mmol/L Chloride 113 H (98-107) mmol/L Carbon Dioxide 16 L (22-30) mmol/L BUN 22 H (9-20) mg/dL Creatinine 0.80 (0.66-1.25) mg/dL Glucose 147 H (74-99) mg/dL Calcium 8.7 (8.4-10.2) mg/dL Total Bilirubin 0.4 (0.2-1.3) mg/dL AST 26 (17-59) U/L ALT 10 (4-49) U/L Alkaline Phosphatase 77 (38-126) U/L Total Protein 8.3 H (6.3-8.2) g/dL Albumin 4.3 (3.5-5.0) g/dL - Imaging Comments: CT angio thoracic abdomen pelvis aorta reports stable dissection running from aortic root into the right groin region as detailed above. No significant change from most recent prior CTs. No acute findings are present. There is persistent linear density or dissection in aortic arch without extension into the great vessels. Continuation into the ascending and descending aorta redemonstrated. This is a 5.2 cm ascending aortic aneurysm which is redemonstrated. Dissection extends into the abdominal aorta and iliac branch vessels bilaterally with extension into the right internal iliac artery again seen. There is extension into the right external iliac artery which continues into the right common femoral artery similar to prior. Assessment and Plan Assessment: 1. Chronic type a aortic dissection, known 2. Chest wall pain 3. Atrial fibrillation 3. History of multiple falls 4. Alcohol intoxication with regular alcohol abuse 5. Coronary artery disease with history of mitral valve repair 6. HIV with history of IV drug use 7. Depression Plan: Patient is presenting with chest wall tenderness and pain no chest pain or abdominal pain, CT reports stable aortic dissection. He has known type a aortic dissection who is scheduled with cardiothoracic surgeon out of [facility] June 03. No plans on vascular surgical intervention for type a aortic dissection. Likely pain is musculoskeletal however if you have any further concerns, cardiothoracic surgery should be consulted. Will leave this up to the discretion of cardiology and primary mediccal team. Thank you for this consultation, we will sign off at this time. The impression and plan of care has been dictated as directed. Dr. Ocampo I performed a history and examination of this patient, discussed the same with the dictator. I agree with the dictator's note ,documented as a scribe. Any additional findings or plans will be noted.
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
--- NOTE | 2024-05-23 15:03 | P.HPIM ---
History of Present Illness H&P Date: 05/23/24 63-year-old male with a PMH of A-fib on Eliquis, systolic CHF with EF 35 to 40%, stable type A aortic dissection, EtOH abuse, and HIV who presents to the emergency room for chest pain and suicidal ideation. Patient reports a mechanical fall 2 weeks ago, landing on his knees. Since then, hes been exp eriencing chest pain, left sided, sore in nature. He is seeing Dr. Arias at [facility] with an upcoming appointment on 06/03 to evaluate for surgery with regard to his aortic dissection. Patient reports feeling overwhelmed due to the need for surgery. In the ED he underwent extensive evaluation. BP 150/90, HR 111, T 97.7, RR 20, 97% on RA. CBC, Coag panel, CMP significant for RBC 4.09, Hg 12.7, Hct 38.6, Cl 113, bicarb 16, BUN 22, glu 147. TSH 0.856. Troponin < 0.012, 0.[address] thoracic aorta showed stable dissection. EKG showed AFib with RVR rate of 129. He was given a dose of IV metoprolol and admitted for further workup and management. General: non toxic, no distress, appears at stated age Derm: warm, dry Head: atraumatic, normocephalic, symmetric Eyes: EOMI, no lid lag, anicteric sclera Mouth: no lip lesion, mucus membranes moist Cardiovascular: S1S2 irreg, no murmur, left chest wall TTP Lungs: CTA bilateral, no rhonchi, no rales, no accessory muscle use Ext: no gross muscle atrophy, no edema, no contractures Neuro: no focal neuro deficits Psych: Alert, oriented, appropriate affect Based on my assessment of this patient, this patient meets a high complexity level of care. Musculoskeletal chest pain: ACS ruled out. Tylenol + Morphine + Percocet PRN for pain. Alcohol intoxication: CIWA protocol with Ativan PRN. Atrial fibrillation with RVR: Eliquis 2.5 mg PO BID for AC. Amiodarone 200 mg PO BID. Metoprolol 75 mg PO QAM + 25 mg PO QHS. Suicidal ideation: Sitter. Psych consult. Systolic CHF with EF 35 to 40%: Farxiga 5 mg PO QD. Entresto 1 tab PO BID. Stable type A aortic dissection HIV: Restart Biktarvy and Prezcobix. Gout: Allopurinol 300 mg PO QD. Colchicine 0.6 mg PO BID. COPD: Not in acute exacerbation. DuoNeb BID PRN SOB/wheezing. Hypothyroidism: Synthroid 200 mcg PO QD. CODE STATUS: FULL CODE DVT Prophylaxis: Eliquis GI Prophylaxis: Protonix Designated medical POA if patient is not able to make medical decisions for themselves: I have reviewed the following account consultant notes: ER note I have reviewed the results of the following tests: As above I have ordered the following tests: As above I have discussed the care of this patient with the following independent historian: I have independently interpreted the following test below: EKG I have discussed the management of this patient with the following physician: Dr. Peña Past Medical History Past Medical History: Atrial Fibrillation, Asthma, Heart Failure, Fibromyalgia, GERD/Reflux, Hypertension, Prostate Disorder Additional Past Medical History / Comment(s): Mitral valve disease w/ MV repair at [facility] 2000, HIV positive, past HTN and recently low blood pressures, BPH, R ankle gout, chronic nausea, bilateral glaucoma, chronic pain syndrome, chronic low back and bilateral hip pain and occasional cervical pain, DDD, lumbar stenosis/spondylosis, abdominal hernia, previous history of drug overdose. PTSD History of Any Multi-Drug Resistant Organisms: None Reported Past Surgical History: Heart Catheterization, Hernia Repair Additional Past Surgical History / Comment(s): Mitral valve repair at [facility] (2000), Type A aortic disection repordedly treated conservatively by [facility], R inguinal hernia x2, L inguinal hernia, epidural injections to back, hip inj ections, RFAs, spinal cord stimulator trial-removed, Past Anesthesia/Blood Transfusion Reactions: No Reported Reaction Past Psychological History: Anxiety, Depression, PTSD Smoking Status: Former smoker Past Alcohol Use History: Abuse Past Drug Use History: Marijuana, Prescription Drug Abuse - Past Family History Father History Unknown: Yes Additional Family Medical History / Comment(s): Father was injured at work and of complication during his hospitalization. Mother Additional Family Medical History / Comment(s): Mother is from alcoholism. Brother(s) Additional Family Medical History / Comment(s): alcohol and HF Medications and Allergies Home Medications Medication Instructions Recorded Confirmed Type Bictegrav/Emtricit/Tenofov Ala 1 tab PO DAILY 09/07/21 05/23/24 History [Biktarvy 50-200-25 mg Tablet] Darunavir/Cobicistat [Prezcobix 1 tab PO DAILY 09/07/22 05/23/24 History 800 mg-150 mg Tablet] Albuterol Sulfate [Albuterol 1 - 2 puff INHALATION RT-QID PRN 12/27/23 05/23/24 History Sulfate Hfa] Empagliflozin [Jardiance] 10 mg PO DAILY 12/27/23 05/23/24 History Sacubitril/Valsartan [Entresto 24 1 tab PO BID 12/27/23 05/23/24 History mg-26 mg Tablet] Fenofibrate Nanocrystallized 48 mg PO DAILY 03/17/24 05/23/24 History [Fenofibrate] Levothyroxine Sodium 200 mcg PO DAILY 03/17/24 05/23/24 History oxyCODONE-APAP 10-325MG [Percocet 1 tab PO Q6HR PRN 3 Days #12 tab 03/20/24 05/23/24 Rx 10-325 mg] Apixaban [Eliquis] 2.5 mg PO BID 04/03/24 05/23/24 History Bimatoprost [Lumigan 0.01% Ophth 1 drop BOTH EYES HS 04/03/24 05/23/24 History Soln] Bumetanide [BUMEX] 1 mg PO BID PRN 04/03/24 05/23/24 History Colchicine 0.6 mg PO DIRECTED PRN 04/03/24 05/23/24 History allopurinoL 100 mg PO DAILY 04/03/24 05/23/24 History Escitalopram [Lexapro] 10 mg PO DAILY 30 Days #30 tab 04/28/24 05/23/24 Rx Thiamine [Vitamin B-1] 100 mg PO DAILY 30 Days #30 tab 04/28/24 05/23/24 Rx Amiodarone [Cordarone] 200 mg PO BID 05/23/24 05/23/24 History Cholecalciferol [Vitamin D3 (25 25 mcg PO DAILY 05/23/24 05/23/24 History Mcg = 1000 Iu)] Lidocaine 5% Patch [Lidoderm] 1 patch TOPICAL DAILY 05/23/24 05/23/24 History Metoprolol Succinate (ER) [Toprol 50 mg PO DAILY 05/23/24 05/23/24 History Xl] Mirtazapine 7.5 mg PO HS 05/23/24 05/23/24 History Multivitamins, Thera [Multivitamin 1 tab PO DAILY 05/23/24 05/23/24 History (formulary)] Omeprazole [PriLOSEC] 40 mg PO DAILY 05/23/24 05/23/24 History Rosuvastatin [Crestor] 20 mg PO DAILY 05/23/24 05/23/24 History Allergies Allergy/AdvReac Type Severity Reaction Status Date / Time abacavir [From Ziagen] Allergy Anaphylaxis Verified 05/23/24 10:55 efavirenz [From Sustiva] Allergy Anaphylaxis Verified 05/23/24 10:55 levofloxacin Allergy Itching Verified 05/23/24 10:55 hydrocodone AdvReac Rapid Verified 05/23/24 10:55 [From Hysingla ER] Heart Rate morphine AdvReac Itching Verified 05/23/24 10:55 sulfamethoxazole AdvReac HIGH Verified 05/23/24 10:55 [From Bactrim] CREATININE LEVEL trimethoprim [From Bactrim] AdvReac HIGH Verified 05/23/24 10:55 CREATININE Physical Exam Vitals: Vital Signs Temp Pulse Resp BP Pulse Ox 05/23/24 13:51 85 18 127/84 98 05/23/24 12:00 100 18 137/62 98 05/23/24 10:23 97.5 F L 99 18 130/79 97 05/23/24 08:48 97.6 F 99 18 141/79 94 L 05/23/24 06:43 75 16 132/83 95 05/23/24 05:38 97.9 F 77 18 133/73 96 05/23/24 03:06 86 16 142/85 95 05/23/24 02:33 92 16 148/100 97 05/23/24 01:58 95 15 133/75 96 05/23/24 01:45 121 H 16 162/86 96 05/23/24 00:37 154 H 18 132/106 97 05/22/24 23:31 97.7 F 111 H 20 150/90 97 Intake and Output 05/22/24 05/23/24 05/23/24 22:59 06:59 14:59 Other: Weight 78.925 kg Results CBC & Chem 7: 05/23/24 00:03 05/23/24 00:03 Labs: Abnormal Lab Results - Last 24 Hours (Table) 05/23/24 05/23/24 05/23/24 Range/Units 00:03 00:03 01:50 RBC 4.09 L (4.30-5.90) m/uL Hgb 12.7 L (13.0-17.5) gm/dL Hct 38.6 L (39.0-53.0) % RDW 15.6 H (11.5-15.5) % Chloride 113 H (98-107) mmol/L Carbon Dioxide 16 L (22-30) mmol/L BUN 22 H (9-20) mg/dL Glucose 147 H (74-99) mg/dL Total Protein 8.3 H (6.3-8.2) g/dL Urine Protein (Negative) Urine Blood (Negative) Urine Mucus (None) /hpf U Benzodiazepines Scrn Detected H (NotDetected) Serum Alcohol 349 H* mg/dL 05/23/24 Range/Units 01:51 RBC (4.30-5.90) m/uL Hgb (13.0-17.5) gm/dL Hct (39.0-53.0) % RDW (11.5-15.5) % Chloride (98-107) mmol/L Carbon Dioxide (22-30) mmol/L BUN (9-20) mg/dL Glucose (74-99) mg/dL Total Protein (6.3-8.2) g/dL Urine Protein 1+ H (Negative) Urine Blood Trace H (Negative) Urine Mucus Rare H (None) /hpf U Benzodiazepines Scrn (NotDetected) Serum Alcohol mg/dL
[2024-05-23] MEDS: DULoxetine HCL 30 MG CAPSULE.DR PO SCH (15:29)
[2024-05-23] MEDS: MIRTAZAPINE 15 MG TAB PO SCH (20:19)
[2024-05-23] MEDS: LATANOPROST 0.005% OPHTH DROPS 2.5 ML BTL BOTH EYES SCH (20:19)
[2024-05-23] MEDS ORDERED: hydrOXYzine pamoate 25 MG CAP PO SCH (21:00)
[2024-05-23] MEDS ORDERED: TAMSULOSIN 0.4 MG CAP.ER.24H PO SCH (21:00)
[2024-05-24] MEDS: LORazepam 1 MG TAB PO PRN (02:42)
[2024-05-24] MEDS ORDERED: PROMETHAZINE 25 MG TAB PO PRN (03:48)
[2024-05-24] MEDS ORDERED: hydrOXYzine HCL 10 MG TAB PO PRN (06:48)
[2024-05-24] MEDS: METOPROLOL SUCCINATE (ER) 50 MG TAB.ER.24H PO SCH (09:08)
[2024-05-24] MEDS: AMIODARONE 200 MG TAB PO SCH (09:08)
[2024-05-24 09:13] LABS: Basophils % (A) 1 %; Eosinophils # (A) 0.1 k/uL (0-0.7); Eosinophils % (A) 1 %; HCT 37.9 % (39.0-53.0); HGB 12.3 gm/dL (13.0-17.5); Hypochromasia Slight; Lymphocytes # (A) 1.4 k/uL (1.0-4.8); Lymphocytes % (A) 33 %; MCH 31.4 pg (25.0-35.0); MCHC 32.4 g/dL (31.0-37.0); MCV 96.9 fL (80.0-100.0); Mean Platelet Volume 8.6; Monocytes # (A) 0.3 k/uL (0-1.0); Monocytes % (A) 8 %; Neutrophils # (A) 2.2 k/uL (1.3-7.7); Neutrophils % (A) 54 %; Platelet Count 163 k/uL (150-450); RBC 3.92 m/uL (4.30-5.90); RDW 15.2 % (11.5-15.5); WBC 4.1 k/uL (3.8-10.6)
[2024-05-24 09:46] LABS: ALT 11 U/L (4-49); AST 22 U/L (17-59); African American GFR (CKD) >90 (>60 ml/min/1.73 sqM); Albumin 3.4 g/dL (3.5-5.0); Alkaline Phosphatase 73 U/L (38-126); Anion Gap 7 mmol/L; Blood Urea Nitrogen 19 mg/dL (9-20); Calcium 8.4 mg/dL (8.4-10.2); Carbon Dioxide 19 mmol/L (22-30); Chloride 110 mmol/L (98-107); Glucose 120 mg/dL (74-99); Non-African American GFR(CKD) >90 (>60 ml/min/1.73 sqM); Potassium 3.8 mmol/L (3.5-5.1); Sodium 136 mmol/L (137-145); Total Bilirubin 0.8 mg/dL (0.2-1.3); Total Protein 6.8 g/dL (6.3-8.2)
[2024-05-24] MEDS: ATORVASTATIN 40 MG TAB PO SCH (09:58)
--- NOTE | 2024-05-24 13:21 | P.DS ---
Providers Date of admission: 05/23/24 03:29 Expected date of discharge: 05/24/24 Attending physician: Brian Magdaleno Consults: 05/23/24 03:29 Consult Physician Routine Consulting Provider: Psychiatry - [facility] Psychiatry Consult Reason/Comments: suicidal ideation Do you want consulting provider notified?: Already Contacted Consult Physician Routine Consulting Provider: Sergo Morales Consult Reason/Comments: chest pain, atrial fibrillation with rvr Do you want consulting provider notified?: Yes 05/23/24 10:46 Consult Physician Routine Consulting Provider: Flaca Ocampo Consult Reason/Comments: eval AAA/disec, follows at , next paulina 06/03 plan for sx Do you want consulting provider notified?: Yes Primary care physician: Girma [facility] Course: 63-year-old male with a PMH of A-fib on Eliquis, systolic CHF with EF 35 to 40%, stable type A aortic dissection, EtOH abuse, and HIV who presents to the emergency room for chest pain and suicidal ideation. Patient reports a mechanical fall 2 weeks ago, landing on his knees. Since then, hes been experiencing chest pain, left sided, sore in nature. He is seeing Dr. Arias at [facility] with an upcoming appointment on 06/03 to evaluate for surgery with regard to his aortic dissection. Patient reports feeling overwhelmed due to the need for surgery. In the ED he underwent extensive evaluation. BP 150/90, HR 111, T 97.7, RR 20, 97% on RA. CBC, Coag panel, CMP significant for RBC 4.09, Hg 12.7, Hct 38.6, Cl 113, bicarb 16, BUN 22, glu 147. TSH 0.856. Troponin < 0.012, 0.[address] thoracic aorta showed stable dissection. EKG showed AFib with RVR rate of 129. He was given a dose of IV metoprolol and admitted for further workup and management. ACS was ruled out. Cardiology consulted, recommended consult vascular surgery. Vascular consulted, recommended no vascular intervention, outpatient follow up at [facility]. Psychiatry consulted, patient does not meet inpatient criteria. 05/24 Patient was seen and examined. No chest pain. No complaints. HR in the low 100s. CBC and BMP significant for RBC 3.92, Hg 12.3, Hct 37.9, Na 136, Cl 110, bicarb 19, glu 120, alb 3.4. Possible discharge today pending Cardiology r ecommendations. General: non toxic, no distress, appears at stated age Derm: warm, dry Head: atraumatic, normocephalic, symmetric Eyes: EOMI, no lid lag, anicteric sclera Mouth: no lip lesion, mucus membranes moist Cardiovascular: S1S2 irreg, no murmur, left chest wall TTP Lungs: CTA bilateral, no rhonchi, no rales, no accessory muscle use Ext: no gross muscle atrophy, no edema, no contractures Neuro: no focal neuro deficits Psych: Alert, oriented, appropriate affect Discharge Diagnosis: Musculoskeletal chest pain Alcohol intoxication Atrial fibrillation with RVR Suicidal ideation Systolic CHF with EF 35 to 40% Stable type A aortic dissection HIV Gout COPD Hypothyroidism This complex discharge took 35 minutes to complete. Patient Condition at Discharge: Stable Plan - Discharge Summary Discharge Rx Participant: No New Discharge Prescriptions: No Action Darunavir/Cobicistat [Prezcobix 800 mg-150 mg Tablet] 1 tab PO DAILY Albuterol Sulfate [Albuterol Sulfate Hfa] 1 - 2 puff INHALATION RT-QID PRN PRN Reason: Shortness Of Breath Sacubitril/Valsartan [Entresto 24 mg-26 mg Tablet] 1 tab PO BID Levothyroxine Sodium 200 mcg PO DAILY Colchicine 0.6 mg PO DIRECTED PRN PRN Reason: gout flare Bumetanide [BUMEX] 1 mg PO BID PRN PRN Reason: swelling/weight gain Apixaban [Eliquis] 2.5 mg PO BID Amiodarone [Cordarone] 200 mg PO BID Cholecalciferol [Vitamin D3 (25 Mcg = 1000 Iu)] 25 mcg PO DAILY Mirtazapine 7.5 mg PO HS Multivitamins, Thera [Multivitamin (formulary)] 1 tab PO DAILY Omeprazole [PriLOSEC] 40 mg PO DAILY Rosuvastatin [Crestor] 20 mg PO DAILY Bictegrav/Emtricit/Tenofov Ala [Biktarvy 50-200-25 mg Tablet] 1 tab PO DAILY Empagliflozin [Jardiance] 10 mg PO DAILY Fenofibrate Nanocrystallized [Fenofibrate] 48 mg PO DAILY oxyCODONE-APAP 10-325MG [Percocet 10-325 mg] 1 tab PO Q6HR PRN 3 Days #12 tab PRN Reason: Pain Bimatoprost [Lumigan 0.01% Ophth Soln] 1 drop BOTH EYES HS allopurinoL 100 mg PO DAILY Escitalopram [Lexapro] 10 mg PO DAILY 30 Days #30 tab Thiamine [Vitamin B-1] 100 mg PO DAILY 30 Days #30 tab Lidocaine 5% Patch [Lidoderm] 1 patch TOPICAL DAILY Metoprolol Succinate (ER) [Toprol Xl] 50 mg PO DAILY Discharge Medication List Bictegrav/Emtricit/Tenofov Ala [Biktarvy 50-200-25 mg Tablet] 1 tab PO DAILY 09/07/21 [History] Darunavir/Cobicistat [Prezcobix 800 mg-150 mg Tablet] 1 tab PO DAILY 09/07/22 [History] Albuterol Sulfate [Albuterol Sulfate Hfa] 1 - 2 puff INHALATION RT-QID PRN 12/27/23 [History] Empagliflozin [Jardiance] 10 mg PO DAILY 12/27/23 [History] Sacubitril/Valsartan [Entresto 24 mg-26 mg Tablet] 1 tab PO BID 12/27/23 [History] Fenofibrate Nanocrystallized [Fenofibrate] 48 mg PO DAILY 03/17/24 [History] Levothyroxine Sodium 200 mcg PO DAILY 03/17/24 [History] oxyCODONE-APAP 10-325MG [Percocet 10-325 mg] 1 tab PO Q6HR PRN 3 Days #12 tab 03/20/24 [Rx] Apixaban [Eliquis] 2.5 mg PO BID 04/03/24 [History] Bimatoprost [Lumigan 0.01% Ophth Soln] 1 drop BOTH EYES HS 04/03/24 [History] Bumetanide [BUMEX] 1 mg PO BID PRN 04/03/24 [History] Colchicine 0.6 mg PO DIRECTED PRN 04/03/24 [History] allopurinoL 100 mg PO DAILY 04/03/24 [History] Escitalopram [Lexapro] 10 mg PO DAILY 30 Days #30 tab 04/28/24 [Rx] Thiamine [Vitamin B-1] 100 mg PO DAILY 30 Days #30 tab 04/28/24 [Rx] Amiodarone [Cordarone] 200 mg PO BID 05/23/24 [History] Cholecalciferol [Vitamin D3 (25 Mcg = 1000 Iu)] 25 mcg PO DAILY 05/23/24 [History] Lidocaine 5% Patch [Lidoderm] 1 patch TOPICAL DAILY 05/23/24 [History] Metoprolol Succinate (ER) [Toprol Xl] 50 mg PO DAILY 05/23/24 [History] Mirtazapine 7.5 mg PO HS 05/23/24 [History] Multivitamins, Thera [Multivitamin (formulary)] 1 tab PO DAILY 05/23/24 [History] Omeprazole [PriLOSEC] 40 mg PO DAILY 05/23/24 [History] Rosuvastatin [Crestor] 20 mg PO DAILY 05/23/24 [History] Follow up Appointment(s)/Referral(s): Girma Malone MD [Primary Care Provider] - 1-2 days Discharge/Stand Alone Forms: AA Meetings [facility], AA Meetings [place], Outpatient Counseling, Inp Substance Abuse Facilities
[2024-05-24 14:45] VITALS: RESP 18
--- NOTE | 2024-05-24 16:08 | P.PN ---
Subjective Progress Note Date: 05/24/24 HISTORY OF PRESENTING ILLNESS 63-year-old with PMH of A-fib, on Eliquis, systolic heart failure EF 35%, stable type a aortic dissection, alcohol abuse, HIV, suicidal ideation. He presented to the hospital because he has been feeling very concerned about his upcoming thoracic surgery on June 03. He was feeling overwhelmed at home and felt that he was having palpitations therefore he presented to the hospital. CT thoracic aorta showed stable aortic dissection, ECG showed A-fib with RVR at 129 bpm. He tells me that he was still using alcohol at home. Troponins were negative, renal function was stable, hemoglobin stable. Progress note May 24 Doing well, rate controlled, currently in sinus rhythm, hemodynamically stable. No concerns of active bleeding. Appears euvolemic. Head: Normocephalic. Eyes: Sclerae nonicteric. Neck: Brisk carotid upstroke, no jugular venous distention. Lungs: Clear to auscultation. Heart: Regular rate and rhythm, S1-S2, no S3, no murmur or rub. Abdomen: Soft nontender, positive bowel sounds. Extremities: No edema, intact distal pulses. Neuro: Alert, oritented, no focal deficits. Detailed neuro exam was not performed. ASSESSMENT Paroxysmal atrial fibrillation RVR on admission, currently sinus rhythm heart rate 70s Alcohol abuse. Alcohol intoxication at the time of admission Coronary artery disease with 70% in LAD stenosis on CTA Stable type a aortic dissection Ascending aortic aneurysm Mitral valve repair history PLAN Most likely went into A-fib RVR because of alcohol intoxication. Continue current medications. He is on amiodarone 200 mg twice daily. Will continue 200 mg daily at home Will increase his metoprolol to 75 mg daily Continue other guideline directed medical therapy including Entresto Continue anticoagulation with Eliquis. Continue statin, fenofibrate, Recommend complete alcohol abstinence Recommend complete abstinence from smoking and any drug use Recommend complete abstinence from heavy weightlifting Patient is cleared from cardiac standpoint at this time. Recommend close outpatient follow-up with his assistant spa manager and cardiothoracic surgery team at [facility] and local primary care physician. Would recommend he seek out a primary care physician to address his anxiety and may be using short-term short acting antianxiety medications. Colt Ferraro MD, FACC, RPVI Thank you for allowing [facility] to participate in this patient's care. Feel free to reach out in case of any followup questions. Objective - Vital Signs Vital signs: Vital Signs Temp 97.5 F L 05/24/24 12:00 Pulse 84 05/24/24 14:00 Resp 18 05/24/24 14:00 BP 150/68 05/24/24 12:00 Pulse Ox 99 05/24/24 12:00 FiO2 Intake & Output 05/23/24 05/24/24 05/24/24 18:59 06:59 18:59 Intake Total 560 180 Balance 560 180 Weight 79 kg Intake: IV 20 Invasive Line 1 10 Invasive Line 2 10 Oral 540 180 Other: # Voids 2 - Labs CBC & Chem 7: 05/24/24 08:11 05/24/24 08:11 Labs: Abnormal Lab Results - Last 24 Hours (Table) 05/24/24 05/24/24 Range/Units 08:11 08:11 RBC 3.92 L (4.30-5.90) m/uL Hgb 12.3 L (13.0-17.5) gm/dL Hct 37.9 L (39.0-53.0) % Sodium 136 L (137-145) mmol/L Chloride 110 H (98-107) mmol/L Carbon Dioxide 19 L (22-30) mmol/L Glucose 120 H (74-99) mg/dL Albumin 3.4 L (3.5-5.0) g/dL
[2024-05-24 17:31] VITALS: BP 131/63; PULSE 66; TEMP 97.3
[2024-05-24] MEDS: TRIMETHOBENZAMIDE 100 MG/ML 2 ML VIAL IM STA (18:03)
[2024-05-24] MEDS ORDERED: LUMIGAN 0.01% PO SCH (21:00)
[2024-05-24] MEDS ORDERED: MIRTAZAPINE 15 MG TAB PO SCH (21:00)
[2024-05-24] MEDS ORDERED: EYE PO SCH (21:00)
== END 2024-05-24 18:47 | disposition home health service (06) ==
LOC: EC 23:27 → 3SCARD 05-23 03:29 → INTOOBSV 05-23 03:29 → 3SCARD 05-23 15:32 → UNDODISIN 05-24 18:47
PROVIDERS: ADMIT Student in an Organized Health Care Education/Training Program; ATTEND Student in an Organized Health Care Education/Training Program
DX: F10.229 Alcohol dependence with intoxication, unspecified (principal); I71.019 Dissection of thoracic aorta, unspecified; R07.89 Other chest pain; I48.0 Paroxysmal atrial fibrillation; I25.10 Atherosclerotic heart disease of native coronary artery without angina pectoris; I71.21 Aneurysm of the ascending aorta, without rupture; I11.0 Hypertensive heart disease with heart failure; I50.22 Chronic systolic (congestive) heart failure; K21.9 Gastro-esophageal reflux disease without esophagitis; F32.9 Major depressive disorder, single episode, unspecified; F41.1 Generalized anxiety disorder; E78.5 Hyperlipidemia, unspecified; R29.6 Repeated falls; I42.9 Cardiomyopathy, unspecified; M87.88 Other osteonecrosis, other site; R45.851 Suicidal ideations; M10.9 Gout, unspecified; J44.9 Chronic obstructive pulmonary disease, unspecified; E03.9 Hypothyroidism, unspecified; Y90.8 Blood alcohol level of 240 mg/100 ml or more; Z21 Asymptomatic human immunodeficiency virus [HIV] infection status; Z87.891 Personal history of nicotine dependence; Z79.01 Long term (current) use of anticoagulants; Z79.84 Long term (current) use of oral hypoglycemic drugs; Z79.890 Hormone replacement therapy; Z79.899 Other long term (current) drug therapy; Z88.1 Allergy status to other antibiotic agents; Z88.2 Allergy status to sulfonamides; Z88.5 Allergy status to narcotic agent
CPT/HCPCS: 96376; 82075; 96361; 96374 ×2; 96375; 99291; 36415; 93005; 80053 ×2; 84443; 84484; 85025 ×2; 85610; 85730; 81001; 80306; 80320; 71275; 74174; G0378 ×2; J2060; J2270; Q9967

== ENCOUNTER 2024-05-30 23:49 | Observation (INO) | payer MEDICARE, OTHER ==
[2024-05-31] MEDS: METOPROLOL TARTRATE 5 MG/5 ML VIAL IVP SCH (00:24)
[2024-05-31 00:29] LABS: Basophils # (A) 0.1 k/uL (0-0.2); Basophils % (A) 1 %; Eosinophils % (A) 0 %; HGB 12.4 gm/dL (13.0-17.5); Lymphocytes # (A) 1.9 k/uL (1.0-4.8); Lymphocytes % (A) 23 %; MCH 30.7 pg (25.0-35.0); MCHC 31.9 g/dL (31.0-37.0); MCV 96.2 fL (80.0-100.0); Mean Platelet Volume 8.4; Monocytes # (A) 0.3 k/uL (0-1.0); Monocytes % (A) 4 %; Neutrophils # (A) 5.8 k/uL (1.3-7.7); Neutrophils % (A) 70 %; Platelet Count 153 k/uL (150-450); RBC 4.05 m/uL (4.30-5.90); RDW 15.8 % (11.5-15.5); WBC 8.3 k/uL (3.8-10.6)
[2024-05-31 00:37] LABS: INR 0.9 (<1.2); Partial Thromboplastin Time 25.8 sec (22.0-30.0); Prothrombin Time 10.2 sec (10.0-12.5)
[2024-05-31 00:40] LABS: ALT 14 U/L (4-49); AST 26 U/L (17-59); African American GFR (CKD) >90 (>60 ml/min/1.73 sqM); Albumin 4.7 g/dL (3.5-5.0); Alkaline Phosphatase 105 U/L (38-126); Anion Gap 22 mmol/L; Blood Urea Nitrogen 13 mg/dL (9-20); Calcium 8.6 mg/dL (8.4-10.2); Carbon Dioxide 15 mmol/L (22-30); Chloride 108 mmol/L (98-107); Glucose 107 mg/dL (74-99); Magnesium 1.5 mg/dL (1.6-2.3); Non-African American GFR(CKD) >90 (>60 ml/min/1.73 sqM); Potassium 4.3 mmol/L (3.5-5.1); Sodium 145 mmol/L (137-145); Total Bilirubin 0.8 mg/dL (0.2-1.3); Total Protein 8.4 g/dL (6.3-8.2)
[2024-05-31] MEDS: AMIODARONE 100 MG TAB PO STA (01:39)
[2024-05-31] MEDS: LORazepam 2 MG/ML INJ IV STA (01:40)
--- NOTE | 2024-05-31 02:33 | XR ---
EXAM: XR Chest, 2 Views CLINICAL HISTORY: ITS.REASON XR Reason: dysrhythmia TECHNIQUE: Frontal and lateral views of the chest. COMPARISON: No relevant prior studies available. FINDINGS: Lungs: No consolidation or mass. Pleural space: No effusion. Heart: Mild cardiomegaly. Bones/joints: No acute findings. IMPRESSION: No acute cardiopulmonary process.
[2024-05-31] MEDS ORDERED: LORazepam 2 MG/ML INJ IV PRN (05:31)
[2024-05-31] MEDS: chlordiazePOXIDE 25 MG CAP PO PRN (05:50)
[2024-05-31] MEDS ORDERED: NITROGLYCERIN SL TABS 0.4 MG TAB SUBLINGUAL PRN (06:04)
--- NOTE | 2024-05-31 06:14 | P.HPIM ---
History of Present Illness H&P Date: 05/31/24 Chief Complaint: Chest pain History of present illness; 63-year-old male with a PMH of hypertension, COPD, atrial fibrillation (on Eliquis), systolic CHF with EF 35 to 40%, stable type a aortic dissection, EtOH abuse, and HIV who presents to the emergency room for chest pain. Reports earlier tonight as he was getting into bed he felt palpitations and a very fast heart rate. States that this time he put on a heart rate monitor and was found to have a heart rate in the 140s. States that this time he decided to call EMS and come get checked out in the emergency department. Describes his left-sided chest pain as an 8 out of 10 at worst, characterizes it as aching and noticed it started becoming worse yesterday. States the chest pain has been going on since before he was last admitted 1 week ago, but did not notice it during the admission due to being on pain meds. Reports it radiates to the left jaw, left shoulder, and his back. Of note though he states the pain becomes worse when he physically pushes on his chest and believes it potentially could be from a fall he had recently, but denies falling on his chest. Admits to the chest pain becoming worse on exertion, and occurring at rest as well. Of note patient has been anxious due to upcoming surgery on his stable type a aortic dissection and due to this has been drinking heavily. Reports since he was discharged a week ago since Sunday he has drank a gallon and a pint of hard liquor. Notes during this time he has been eating well, but reports he has been very dehydrated. Imaging: - EKG done in the ER showed heart rate of 118 bpm, atrial fibrillation - ER CXR: No acute cardiopulmonary process. REVIEW OF SYSTEMS: As stated above in HPI. The rest of the 14-point review of systems is negative. PHYSICAL EXAMINATION: GENERAL: The patient is alert and oriented x3, not in any acute distress. Well developed, well nourished. HEENT: Pupils are round and equally reacting to light. EOMI. No scleral icterus. No conjunctival pallor. Normocephalic, atraumatic. CARDIOVASCULAR: Irregularly irregular rhythm auscultated. PULMONARY: Chest is clear to auscultation b/l, no wheezing or crackles. ABDOMEN: Soft, nontender, nondistended, normoactive bowel sounds. No palpable organomegaly. MUSCULOSKELETAL: No joint swelling or deformity. Tenderness in the left chest upon palpation. EXTREMITIES: No cyanosis, clubbing, or pedal edema. NEUROLOGICAL: Gross neurological examination did not reveal any focal deficits. SKIN: No rashes. Assessment and Plan 63-year-old male with a PMH of hypertension, COPD, atrial fibrillation (on Eliquis), systolic CHF with EF 35 to 40%, stable type a aortic dissection, EtOH abuse, and HIV who presents to the emergency room for chest pain. #Atypical chest pain: Appears to have MSK component as pain becomes worse with palpation. #Atrial fibrillation with RVR -Troponin 0.032, continue to trend -Given amiodarone 100 mg p.o. once in the ED and started on Lopressor 5 mg IVP every 5 minutes in the ED -Cardiology consulted -Echo from 04/24 showed EF of 35 to 40%, consider repeat echo -Continue home Eliquis 2.5 mg p.o. twice daily -Continue cardiac monitoring resume home medications, amiodarone 200 mg po bid continue metoprolol home medication #Anion gap metabolic acidosis -Bicarb 15, anion gap 22 -Etiology unclear, only potential suspect is previous week of binge drinking where patient drank 1 gallon and 1 pint of hard liquor -Continue to monitor CMP Chronic Conditions: #History of stable type a aortic dissection -Continue home medications once confirmed by pharmacy #Hypertension -Continue home medications once confirmed #Hyperlipidemia -Continue home Crestor 20 mg p.o. daily and fenofibrate 48 mg p.o. daily once confirmed by pharmacy #Mood disorder -Continue home medications once confirmed by pharmacy #Hypothyroidism -Continue home levothyroxine 200 mcg p.o. daily once confirmed by pharmacy F: P.o. E: None N: Heart healthy diet DVT ppx: Eliquis 2.5 mg p.o. twice daily GI ppx: Protonix 40 mg p.o. daily CODE STATUS: Full code Dispo: Pending clinical course Salas Wyatt MD PGY-1 FM Dictation was produced using [employer] dictation software. please excuse any grammatical, word or spelling errors. I have seen and evaluated the patient today. I Discussed the case with the resident and agree with the resident's findings I edited the assessment and plan as necessary as documented in the resident's note. Past Medical History Past Medical History: Atrial Fibrillation, Asthma, Heart Failure, Fibromyalgia, GERD/Reflux, Hypertension, Prostate Disorder Additional Past Medical History / Comment(s): Mitral valve disease w/ MV repair at [facility] 2000, HIV positive, past HTN and recently low blood pressures, BPH, R ankle gout, chronic nausea, bilateral glaucoma, chronic pain syndrome, chronic low back and bilateral hip pain and occasional cervical pain, DDD, lumbar stenosis/spondylosis, abdominal hernia, previous history of drug overdose. PTSD History of Any Multi-Drug Resistant Organisms: None Reported Past Surgical History: Heart Catheterization, Hernia Repair Additional Past Surgical History / Comment(s): Mitral valve repair at [facility] (2000), Type A aortic disection repordedly treated conservatively by [facility], R inguinal hernia x2, L inguinal hernia, epidural injections to back, hip injections, RFAs, spinal cord stimulator trial-removed, Past Anesthesia/Blood Transfusion Reactions: No Reported Reaction Past Psychological History: Anxiety, Depression, PTSD Smoking Status: Former smoker Past Alcohol Use History: Abuse Past Drug Use History: Prescription Drug Abuse - Past Family History Father History Unknown: Yes Additional Family Medical History / Comment(s): Father was injured at work and of complication during his hospitalization. Mother Additional Family Medical History / Comment(s): Mother is from [facility]. Brother(s) Additional Family Medical History / Comment(s): alcohol and HF Medications and Allergies Home Medications Medication Instructions Recorded Confirmed Type Bictegrav/Emtricit/Tenofov Ala 1 tab PO DAILY 09/07/21 05/23/24 History [Biktarvy 50-200-25 mg Tablet] Darunavir/Cobicistat [Prezcobix 1 tab PO DAILY 09/07/22 05/23/24 History 800 mg-150 mg Tablet] Albuterol Sulfate [Albuterol 1 - 2 puff INHALATION RT-QID PRN 12/27/23 05/23/24 History Sulfate Hfa] Empagliflozin [Jardiance] 10 mg PO DAILY 12/27/23 05/23/24 History Sacubitril/Valsartan [Entresto 24 1 tab PO BID 12/27/23 05/23/24 History mg-26 mg Tablet] Fenofibrate Nanocrystallized 48 mg PO DAILY 03/17/24 05/23/24 History [Fenofibrate] Levothyroxine Sodium 200 mcg PO DAILY 03/17/24 05/23/24 History oxyCODONE-APAP 10-325MG [Percocet 1 tab PO Q6HR PRN 3 Days #12 tab 03/20/24 05/23/24 Rx 10-325 mg] Apixaban [Eliquis] 2.5 mg PO BID 04/03/24 05/23/24 History Bimatoprost [Lumigan 0.01% Ophth 1 drop BOTH EYES HS 04/03/24 05/23/24 History Soln] Bumetanide [BUMEX] 1 mg PO BID PRN 04/03/24 05/23/24 History Colchicine 0.6 mg PO DIRECTED PRN 04/03/24 05/23/24 History allopurinoL 100 mg PO DAILY 04/03/24 05/23/24 History Escitalopram [Lexapro] 10 mg PO DAILY 30 Days #30 tab 04/28/24 05/23/24 Rx Thiamine [Vitamin B-1] 100 mg PO DAILY 30 Days #30 tab 04/28/24 05/23/24 Rx Amiodarone [Cordarone] 200 mg PO BID 05/23/24 05/23/24 History Cholecalciferol [Vitamin D3 (25 25 mcg PO DAILY 05/23/24 05/23/24 History Mcg = 1000 Iu)] Lidocaine 5% Patch [Lidoderm 5% 1 patch TOPICAL DAILY 05/23/24 05/23/24 History Patch] Mirtazapine 7.5 mg PO HS 05/23/24 05/23/24 History Multivitamins, Thera [Multivitamin 1 tab PO DAILY 05/23/24 05/23/24 History (formulary)] Omeprazole [PriLOSEC] 40 mg PO DAILY 05/23/24 05/23/24 History Rosuvastatin [Crestor] 20 mg PO DAILY 05/23/24 05/23/24 History DULoxetine HCL [Cymbalta] 30 mg PO DAILY #60 cap 05/24/24 Rx Metoprolol Succinate (ER) [Toprol 75 mg PO DAILY #90 tab 05/24/24 Rx XL] Allergies Allergy/AdvReac Type Severity Reaction Status Date / Time abacavir [From Ziagen] Allergy Anaphylaxis Verified 05/23/24 10:55 efavirenz [From Sustiva] Allergy Anaphylaxis Verified 05/23/24 10:55 levofloxacin Allergy Itching Verified 05/23/24 10:55 hydrocodone AdvReac Rapid Verified 05/23/24 10:55 [From Hysingla ER] Heart Rate morphine AdvReac Itching Verified 05/31/24 00:02 sulfamethoxazole AdvReac HIGH Verified 05/23/24 10:55 [From Bactrim] CREATININE LEVEL trimethoprim [From Bactrim] AdvReac HIGH Verified 05/23/24 10:55 CREATININE Physical Exam Vitals: Vital Signs Temp Pulse Pulse Resp BP Pulse Ox 05/31/24 06:07 98.3 F 95 18 147/94 96 05/31/24 05:22 108 H 20 137/82 96 05/31/24 04:42 102 H 22 131/91 96 05/31/24 03:54 102 H 22 148/77 05/31/24 03:16 94 22 129/85 95 05/31/24 03:00 101 H 114/77 96 05/31/24 02:30 93 132/86 93 L 05/31/24 02:00 99 142/90 05/31/24 01:30 104 H 18 132/90 96 05/31/24 00:30 123 H 129/79 96 05/31/24 00:11 113 H 18 123/74 97 05/31/24 00:00 131 H 142 H 142/87 98 05/30/24 23:57 98.3 F 142 H 20 142/87 98 Intake and Output 05/30/24 05/30/24 05/31/24 14:59 22:59 06:59 Other: Weight 78.925 kg Results CBC & Chem 7: 05/31/24 00:05 05/31/24 00:05 Labs: Abnormal Lab Results - Last 24 Hours (Table) 05/31/24 05/31/24 05/31/24 Range/Units 00:05 00:05 02:31 RBC 4.05 L (4.30-5.90) m/uL Hgb 12.4 L (13.0-17.5) gm/dL RDW 15.8 H (11.5-15.5) % Chloride 108 H (98-107) mmol/L Carbon Dioxide 15 L (22-30) mmol/L Glucose 107 H (74-99) mg/dL Magnesium 1.5 L (1.6-2.3) mg/dL Total Protein 8.4 H (6.3-8.2) g/dL Serum Alcohol 243 H* mg/dL
[2024-05-31] MEDS: MAGNESIUM SULFATE-D5W PMX 1 GM in DEXTROSE/WATER 1 100ML.BAG IVPB ONE (06:19)
[2024-05-31] MEDS: LORazepam 2 MG/ML INJ IV PRN ×2 (06:34→09:20)
[2024-05-31] MEDS ORDERED: ALBUTEROL NEBULIZED 2.5 MG/3 ML INHALATION PRN (06:53)
--- NOTE | 2024-05-31 07:56 | ED ---
Arrhythmia/Palpitations HPI - General Chief Complaint: Arrhythmia/Palpitations Stated Complaint: Afib Time Seen by Provider: 05/31/24 00:07 Source: patient Mode of arrival: ambulatory Limitations: no limitations - History of Present Illness Initial Comments: This patient is a 63-year-old man with history of atrial fibrillation and also of previous aortic dissection. The patient presents with complaint of being short of breath and having palpitations. Further history is that the patient believes he is usually in sinus rhythm but he feels like he flipped back into atrial fibrillation which she has previously had. Patient relates that he has been drinking since Sunday. He drinks over 1/5 of liquor. He had not been drinking but states he is very anxious about an upcoming aortic repair scheduled for this month at [facility]. Patient notes that he is on amiodarone and he does take Eliquis, 2.5 mg. Patient denies chest pain. No diaphoresis, syncope, or other symptoms. MD Complaint: palpitations, irregular heart beat -: hour(s) Context: occurred during rest Arrhythmia History: atrial fibrillation, on anti-coagulants Associated Symptoms: shortness of breath - Related Data Home Medications Medication Instructions Recorded Confirmed Bictegrav/Emtricit/Tenofov Ala 1 tab PO DAILY 09/07/21 06/08/24 [Biktarvy 50-200-25 mg Tablet] Darunavir/Cobicistat [Prezcobix 1 tab PO DAILY 09/07/22 06/08/24 800 mg-150 mg Tablet] Albuterol Sulfate [Albuterol 2 puff INHALATION RT-QID PRN 12/27/23 06/08/24 Sulfate Hfa] Empagliflozin [Jardiance] 10 mg PO DAILY 12/27/23 06/08/24 Sacubitril/Valsartan [Entresto 24 1 tab PO BID 12/27/23 06/08/24 mg-26 mg Tablet] Fenofibrate Nanocrystallized 48 mg PO DAILY 03/17/24 06/08/24 [Fenofibrate] Levothyroxine Sodium 200 mcg PO DAILY 03/17/24 06/08/24 Apixaban [Eliquis] 2.5 mg PO BID 04/03/24 06/08/24 Bimatoprost [Lumigan 0.01% Ophth 1 drop BOTH EYES HS 04/03/24 06/08/24 Soln] allopurinoL 100 mg PO DAILY 04/03/24 06/08/24 Amiodarone [Cordarone] 200 mg PO BID 05/23/24 06/08/24 Cholecalciferol [Vitamin D3 (25 25 mcg PO DAILY 05/23/24 06/08/24 Mcg = 1000 Iu)] Lidocaine 5% Patch [Lidoderm 5% 1 patch TOPICAL DAILY 05/23/24 06/08/24 Patch] Mirtazapine 7.5 mg PO HS 05/23/24 06/08/24 Multivitamins, Thera [Multivitamin 1 tab PO DAILY 05/23/24 06/08/24 (formulary)] Omeprazole [PriLOSEC] 40 mg PO DAILY 05/23/24 06/08/24 Rosuvastatin [Crestor] 20 mg PO DAILY 05/23/24 06/08/24 Capsaicin Cream [Trixaicin Cream] 1 applic TOPICAL QID 05/31/24 06/08/24 Metoprolol Succinate (ER) [Toprol 100 mg PO DAILY 06/06/24 06/08/24 XL] Previous Rx's Medication Instructions Recorded oxyCODONE-APAP 10-325MG [Percocet 1 tab PO Q6HR PRN 3 Days #12 tab 03/20/24 10-325 mg] Thiamine [Vitamin B-1] 100 mg PO DAILY 30 Days #30 tab 04/28/24 DULoxetine HCL [Cymbalta] 30 mg PO DAILY #60 cap 05/24/24 Bumetanide [BUMEX] 1 mg PO BID #0 06/11/24 Allergies Allergy/AdvReac Type Severity Reaction Status Date / Time abacavir [From Ziagen] Allergy Anaphylaxis Verified 06/08/24 11:02 efavirenz [From Sustiva] Allergy Anaphylaxis Verified 06/08/24 11:02 levofloxacin Allergy Itching Verified 06/08/24 11:02 hydrocodone AdvReac Rapid Verified 06/08/24 11:02 [From Hysingla ER] Heart Rate morphine AdvReac Itching Verified 06/08/24 11:02 sulfamethoxazole AdvReac HIGH Verified 06/08/24 11:02 [From Bactrim] CREATININE LEVEL trimethoprim [From Bactrim] AdvReac HIGH Verified 06/08/24 11:02 CREATININE Review of Systems ROS Statement: Those systems with pertinent positive or pertinent negative responses have been documented in the HPI. ROS Other: All systems not noted in ROS Statement are negative. Constitutional: Reports: weakness. Denies: fever, chills Respiratory: Reports: dyspnea. Denies: cough, wheezes Cardiovascular: Reports: palpitations. Denies: chest pain, orthopnea, edema, syncope Gastrointestinal: Denies: abdominal pain, nausea, vomiting, diarrhea Genitourinary: Denies: dysuria, hematuria Musculoskeletal: Denies: back pain Skin: Denies: rash Neurological: Denies: headache, weakness, numbness Past Medical History Past Medical History: Atrial Fibrillation, Asthma, Heart Failure, Fibromyalgia, GERD/Reflux, Hypertension, Prostate Disorder Additional Past Medical History / Comment(s): Mitral valve disease w/ MV repair at [place] 2000, HIV positive, past HTN and recently low blood pressures, BPH, R ankle gout, chronic nausea, bilateral glaucoma, chronic pain syndrome, chronic low back and bilateral hip pain and occasional cervical pain, DDD, lumbar stenosis/spondylosis, abdominal hernia, previous history of drug overdose. PTSD History of Any Multi-Drug Resistant Organisms: None Reported Past Surgical History: Heart Catheterization, Hernia Repair Additional Past Surgical History / Comment(s): Mitral valve repair at [place] [facility] (2000), Type A aortic disection repordedly treated conservatively by [facility], R inguinal hernia x2, L inguinal hernia, epidural injections to back, hip injections, RFAs, spinal cord stimulator trial-removed, Past Anesthesia/Blood Transfusion Reactions: No Reported Reaction Past Psychological History: Anxiety, Depression, PTSD Smoking Status: Former smoker Past Alcohol Use History: Abuse Past Drug Use History: Prescription Drug Abuse - Past Family History Father History Unknown: Yes Additional Family Medical History / Comment(s): Father was injured at work and of complication during his hospitalization. Mother Additional Family Medical History / Comment(s): Mother is from alcoholism. Brother(s) Additional Family Medical History / Comment(s): alcohol and HF General Exam Limitations: no limitations General appearance: alert, in no apparent distress, appears intoxicated, anxious Head exam: Present: atraumatic, normocephalic Eye exam: Present: normal appearance. Absent: scleral icterus, conjunctival inj ection ENT exam: Present: normal oropharynx Neck exam: Present: normal inspection Respiratory exam: Present: normal lung sounds bilaterally. Absent: respiratory distress, wheezes, rales, rhonchi, stridor, accessory muscle use Cardiovascular Exam: Present: tachycardia, irregular rhythm, systolic murmur. Absent: diastolic murmur, rubs, gallop GI/Abdominal exam: Present: soft. Absent: distended, tenderness, guarding, rebound, rigid, mass, pulsatile mass, hernia Extremities exam: Present: normal inspection, normal capillary refill. Absent: pedal edema, calf tenderness Back exam: Present: normal inspection. Absent: CVA tenderness (R), CVA tenderness (L) Neurological exam: Present: alert Skin exam: Present: warm, dry, intact, normal color. Absent: rash Course Vital Signs 05/30/24 05/31/24 05/31/24 23:57 00:00 00:11 Temperature 98.3 F Pulse Rate 142 H 131 H 113 H Pulse Rate [ 142 H Catering Associate ] Respiratory 20 18 Rate Blood Pressure 142/87 142/87 123/74 O2 Sat by Pulse 98 98 97 Oximetry 05/31/24 05/31/24 05/31/24 00:30 01:30 02:00 Temperature Pulse Rate 123 H 104 H 99 Pulse Rate [ Catering Associate ] Respiratory 18 Rate Blood Pressure 129/79 132/90 142/90 O2 Sat by Pulse 96 96 Oximetry 05/31/24 05/31/24 05/31/24 02:30 03:00 03:16 Temperature Pulse Rate 93 101 H 94 Pulse Rate [ Catering Associate ] Respiratory 22 Rate Blood Pressure 132/86 114/77 129/85 O2 Sat by Pulse 93 L 96 95 Oximetry 05/31/24 05/31/24 05/31/24 03:54 04:42 05:22 Temperature Pulse Rate 102 H 102 H 108 H Pulse Rate [ Catering Associate ] Respiratory 22 22 20 Rate Blood Pressure 148/77 131/91 137/82 O2 Sat by Pulse 96 96 Oximetry 05/31/24 05/31/24 05/31/24 06:07 06:57 06:59 Temperature 98.3 F Pulse Rate 95 92 62 Pulse Rate [ Catering Associate ] Respiratory 18 19 22 Rate Blood Pressure 147/94 139/81 134/88 O2 Sat by Pulse 96 97 95 Oximetry 05/31/24 05/31/24 05/31/24 09:05 13:05 16:28 Temperature Pulse Rate 96 99 93 Pulse Rate [ Catering Associate ] Respiratory 18 18 18 Rate Blood Pressure 143/90 158/100 152/100 O2 Sat by Pulse 97 98 97 Oximetry 05/31/24 05/31/24 18:32 20:16 Temperature 98.2 F Pulse Rate 100 108 H Pulse Rate [ Catering Associate ] Respiratory 18 18 Rate Blood Pressure 143/92 146/77 O2 Sat by Pulse 97 98 Oximetry EKG Findings - EKG Results: EKG: interpreted by ERMD EKG shows: atrial fibrillation (123 bpm) - Blocks, [place], Hypertrophy, ST Abn: AV and intraventricular conduction: intraventricular conduction delay QRS axis and voltage: left axis deviation (-30 to -90) - [place], Pacemaker, Normal: Myocardial infarction: septal [place] (old age or indeterminate), anterior [place] (old age or indeterminate) Medical Decision Making - Medical Decision Making Patient is 63-year-old man here with atrial fibrillation with rapid ventricular rate. The patient did receive an additional oral amiodarone and was given a number of doses of IV metoprolol to control rate and blood pressure. I did di scuss the case with cardiology and they will see the patient. They recommended against IV amiodarone at this point. In addition the patient is given Librium and Ativan for CIWA protocol. The patient had chest x-ray that I interpreted as negative for acute infiltrate, pneumothorax, congestive heart failure Was pt. sent in by a medical professional or institution (BONNIE Rai, RELEASE MANAGER, urgent care, hospital, or residential...) When possible be specific @ -[No] Did you speak to anyone other than the patient for history (EMS, parent, family, police, friend...)? What history was obtained from this source @ -[No] Did you review nursing and triage notes (agree or disagree)? Why? @ -[I reviewed and agree with nursing and triage notes] Were old charts reviewed (outside hosp., previous admission, EMS record, old EKG, old radiological studies, urgent care reports/EKG's, residential records)? Report findings @ -[No old charts were reviewed] Differential Diagnosis (chest pain, altered mental status, abdominal pain women, abdominal pain men, vaginal bleeding, weakness, fever, dyspnea, syncope, headache, dizziness, GI bleed, back pain, seizure, CVA, palpatations, mental health, musculoskeletal)? @ -[Differential Palpitations Ventricular arrhythmias, atrial arrhythmias, myocardial infarction, anemia, thyrotoxicosis, electrolyte imbalance, hypokalemia, pulmonary embolism, pulmonary disease, drugs, alcohol, anxiety, stress.... This is not meant to be an all-inclusive list. EKG interpreted by me (3pts min.). @ -[I interpreted as above] X-rays interpreted by me (1pt min.). @ -[I interpreted as above CT interpreted by me (1pt min.). @ -[None done] U/S interpreted by me (1pt. min.). @ -[None done] What testing was considered but not performed or refused? (CT, X-rays, U/S, labs)? Why? @ -[None] What meds were considered but not given or refused? Why? @ -[None] Did you discuss the management of the patient with other professionals (professionals i.e. , PA, RELEASE MANAGER, lab, RT, psych nurse, addiction social worker, vp home health, teacher, tank officer, manager case management)? Give summary @ -[No] Was smoking cessation discussed for >3mins.? @ -[No] Was critical care preformed (if so, how long)? @ -[No] Were there social determinants of health that impacted care today? How? (Homelessness, low income, unemployed, alcoholism, drug addiction, transportation, low edu. Level, literacy, decrease access to med. care, custodial, rehab)? @Alcoholism Was there de-escalation of care discussed even if they declined (Discuss DNR or withdrawal of care, Hospice)? DNR status @ -[No] What co-morbidities impacted this encounter? (DM, HTN, Smoking, COPD, CAD, Cancer, CVA, ARF, Chemo, Hep., AIDS, mental health diagnosis, sleep apnea, morbid obesity)? @ -Hypertension, chronic aortic dissection, HIV, atrial fibrillation history of alcoholism] Was patient admitted / discharged? Hospital course, mention meds given and route, prescriptions, significant lab abnormalities, going to OR and other pertinent info. @ -[hospital course] Undiagnosed new problem with uncertain prognosis? @ -[No] Drug Therapy requiring intensive monitoring for toxicity (Heparin, Nitro, Insulin, Cardizem)? @ -[ Were any procedures done? @ -[No] Diagnosis/symptom? @ -[Atrial fibrillation Hypertension alcohol intoxication Acute, or Chronic, or Acute on Chronic? @ -[default] Uncomplicated (without systemic symptoms) or Complicated (systemic symptoms)? @ -[default] Side effects of treatment? @ -[No] Exacerbation, Progression, or Severe Exacerbation? @ -[No] Poses a threat to life or bodily function? How? (Chest pain, [place], [place], pneumonia, PE, COPD, DKA, ARF, appy, cholecystitis, CVA, Diverticulitis, Homicidal, Suicidal, threat to staff... and all critical care pts) @ -[No] - Lab Data Result diagrams: 05/31/24 00:05 05/31/24 00:05 Lab Results 05/31/24 05/31/24 05/31/24 Range/Units 00:05 00:05 00:05 WBC 8.3 (3.8-10.6) k/uL RBC 4.05 L (4.30-5.90) m/uL Hgb 12.4 L (13.0-17.5) gm/dL Hct 39.0 (39.0-53.0) % MCV 96.2 (80.0-100.0) fL MCH 30.7 (25.0-35.0) pg MCHC 31.9 (31.0-37.0) g/dL RDW 15.8 H (11.5-15.5) % Plt Count 153 (150-450) k/uL MPV 8.4 Neutrophils % 70 % Lymphocytes % 23 % Monocytes % 4 % Eosinophils % 0 % Basophils % 1 % Neutrophils # 5.8 (1.3-7.7) k/uL Lymphocytes # 1.9 (1.0-4.8) k/uL Monocytes # 0.3 (0-1.0) k/uL Eosinophils # 0.0 (0-0.7) k/uL Basophils # 0.1 (0-0.2) k/uL PT 10.2 (10.0-12.5) sec INR 0.9 (<1.2) APTT 25.8 (22.0-30.0) sec Sodium 145 (137-145) mmol/L Potassium 4.3 (3.5-5.1) mmol/L Chloride 108 H (98-107) mmol/L Carbon Dioxide 15 L (22-30) mmol/L Anion Gap 22 mmol/L BUN 13 (9-20) mg/dL Creatinine 0.74 (0.66-1.25) mg/dL Est GFR (CKD-EPI)AfAm >90 (>60 ml/min/1.73 sqM) Est GFR (CKD-EPI)NonAf >90 (>60 ml/min/1.73 sqM) Glucose 107 H (74-99) mg/dL Calcium 8.6 (8.4-10.2) mg/dL Magnesium 1.5 L (1.6-2.3) mg/dL Total Bilirubin 0.8 (0.2-1.3) mg/dL AST 26 (17-59) U/L ALT 14 (4-49) U/L Alkaline Phosphatase 105 (38-126) U/L Troponin I (0.000-0.034) ng/mL Total Protein 8.4 H (6.3-8.2) g/dL Albumin 4.7 (3.5-5.0) g/dL Triglycerides (0.00-149.00) mg/dL Cholesterol (0.00-200.00) mg/dL LDL Cholesterol, Calc (0.0-131.0) mg/dL VLDL Cholesterol, Calc (5.00-40.00) mg/dL HDL Cholesterol (40.00-60.00) mg/dL Cholesterol/HDL Ratio Ratio Serum Alcohol mg/dL 05/31/24 05/31/24 05/31/24 Range/Units 00:05 00:05 02:31 WBC (3.8-10.6) k/uL RBC (4.30-5.90) m/uL Hgb (13.0-17.5) gm/dL Hct (39.0-53.0) % MCV (80.0-100.0) fL MCH (25.0-35.0) pg MCHC (31.0-37.0) g/dL RDW (11.5-15.5) % Plt Count (150-450) k/uL MPV Neutrophils % % Lymphocytes % % Monocytes % % Eosinophils % % Basophils % % Neutrophils # (1.3-7.7) k/uL Lymphocytes # (1.0-4.8) k/uL Monocytes # (0-1.0) k/uL Eosinophils # (0-0.7) k/uL Basophils # (0-0.2) k/uL PT (10.0-12.5) sec INR (<1.2) APTT (22.0-30.0) sec Sodium (137-145) mmol/L Potassium (3.5-5.1) mmol/L Chloride (98-107) mmol/L Carbon Dioxide (22-30) mmol/L Anion Gap mmol/L BUN (9-20) mg/dL Creatinine (0.66-1.25) mg/dL Est GFR (CKD-EPI)AfAm (>60 ml/min/1.73 sqM) Est GFR (CKD-EPI)NonAf (>60 ml/min/1.73 sqM) Glucose (74-99) mg/dL Calcium (8.4-10.2) mg/dL Magnesium (1.6-2.3) mg/dL Total Bilirubin (0.2-1.3) mg/dL AST (17-59) U/L ALT (4-49) U/L Alkaline Phosphatase (38-126) U/L Troponin I 0.032 (0.000-0.034) ng/mL Total Protein (6.3-8.2) g/dL Albumin (3.5-5.0) g/dL Triglycerides 258.00 H (0.00-149.00) mg/dL Cholesterol 214.00 H (0.00-200.00) mg/dL LDL Cholesterol, Calc 95.7 (0.0-131.0) mg/dL VLDL Cholesterol, Calc 51.60 H (5.00-40.00) mg/dL HDL Cholesterol 66.70 H (40.00-60.00) mg/dL Cholesterol/HDL Ratio 3.21 Ratio Serum Alcohol 243 H* mg/dL Disposition Clinical Impression: Atrial fibrillation with RVR, Alcohol withdrawal, Hypertension Disposition: ADMITTED IP TO THIS HOSP Condition: Good
[2024-05-31] MEDS ORDERED: METOPROLOL SUCCINATE (ER) 25 MG TAB.ER.24H PO SCH (09:00)
[2024-05-31] MEDS: AMIODARONE 200 MG TAB PO SCH (09:16)
[2024-05-31] MEDS: ATORVASTATIN 40 MG TAB PO SCH (09:16)
[2024-05-31] MEDS: SACUBITRIL/VALSARTAN 24 MG-26 MG TABLET PO SCH (09:16)
[2024-05-31] MEDS: APIXABAN 2.5 MG TABLET PO SCH (09:16)
[2024-05-31] MEDS: ESCITALOPRAM 10 MG TAB PO SCH (09:16)
[2024-05-31] MEDS: PANTOPRAZOLE 40 MG TABLET PO SCH (09:16)
[2024-05-31] MEDS: DAPAGLIFLOZIN PROPANEDIOL 5 MG TABLET PO SCH (09:16)
[2024-05-31] MEDS: METOPROLOL SUCCINATE (ER) 100 MG TAB.ER.24H PO SCH (09:16)
[2024-05-31] MEDS: LEVOTHYROXINE 100 MCG TAB PO SCH (09:16)
--- NOTE | 2024-05-31 10:46 | P.CRDCN ---
History of Present Illness History of present illness: HISTORY OF PRESENT ILLNESS: This is a 63-year-old male with a past medical history significant for HIV, coronary artery disease, valvular heart disease status post mitral valve repair, chronic ascending aortic dissection, ascending aortic aneurysm, paroxysmal atrial fibrillation, cardiomyopathy, hypertension, hyperlipidemia, alcohol abuse, and nicotine dependence. Patient follows in the office with Dr. Morales. We have been asked to see the patient in consultation for A-fib with RVR. Patient examined at the bedside in the emergency room. Patient states around 9 PM last night he was laying in bed when he began to have palpitations. He also reports having shortness of breath. He presented to the ER for further evaluation. The patient was found to be in A-fib with RVR. At the time of examination, he remains in atrial fibrillation with a heart rate in the 90s. Patient states he has noticed more episodes of atrial fibrillation recently. He states he is scheduled to have an appointment with the [facility] on June 03 and states he will likely be scheduled for surgery for his aneurysm. He states he has been under a lot of stress because of his possible upcoming surgery so he reports he has been drinking more recently. He reports having 1- 1/2 drinks of vodka yesterday. Patient's serum alcohol level was 243 on admission. Patient does have the shakes at the time of examination and is exhibiting signs of DTs. He also reports that he was smoking cigarettes for and Sunday due to increased rest but states he usually does not smoke anymore. DIAGNOSTICS: - EKG reveals A-fib with RVR - Chest xray negative for acute process - Laboratory data: WBC 8.3. Hemoglobin 12.4. Platelet count 153. Sodium 145. Potassium 4.3. BUN 13. Creatinine 0.75. Magnesium 1.5. Troponin negative x 2. Serum alcohol 243. - Current home cardiac medication list has not been updated at the time of dictation - Most recent echocardiogram obtained in April 2024 revealed ejection fraction 35 to 40%, severe AI, moderate MR - Cardiac catheterization history: Denies REVIEW OF SYSTEMS: At the time of my exam: CONSTITUTIONAL: Denies fever or chills. HEENT: Denies blurred vision, vision changes, or eye pain. Denies hemoptysis CARDIOVASCULAR: Denies chest pain. Denies orthopnea. Denies PND. Denies palpitations RESPIRATORY: Denies shortness of breath. GASTROINTESTINAL: Denies abdominal pain. Denies nausea or vomiting. HEMATOLOGIC: Denies bleeding disorders. GENITOURINARY: Denies any blood in urine. SKIN: Denies pruitis. Denies rash. PHYSICAL EXAM: VITAL SIGNS: Reviewed. GENERAL: Well-developed in no acute distress. HEENT: Head is normocephalic. Pupils are equal, round. Sclerae anicteric. Mucous membranes of the mouth are moist. Neck supple. No JVD or thyromegaly LUNGS: Respirations even and unlabored. Lungs essentially clear to auscultation bilaterally. HEART: Irregular rate and rhythm. S1 and S2 heard. Systolic murmur noted. ABDOMEN: Soft. Nondistended. Nontender. EXTREMITIES: Normal range of motion. No clubbing or cyanosis. Peripheral pulses intact. No lower extremity edema NEUROLOGIC: Awake and alert. Oriented x 3. ASSESSMENT: Palpitations Paroxysmal atrial fibrillation with RVR, currently rate controlled Acute alcohol intoxication History of CAD on CTA with 70% LAD Valvular heart disease status post mitral valve repair Chronic ascending aortic dissection Ascending aortic aneurysm Cardiomyopathy, nonischemic Hypertension Hyperlipidemia History of HIV History of alcohol abuse Nicotine dependence PLAN: No need to repeat echocardiogram as this was performed in April 2024 Resume home cardiac medications Continue telemetry monitoring Abstinence from alcohol recommended Treatment of DTs per internal medicine Smoking cessation encouraged Patient to follow-up next week at the [facility] for his aneurysm and possible surgical repair Further recommendations pending patient course Nurse practitioner note has been reviewed by physician. Signing provider agrees with the documented findings, assessment, and plan of care documented by DEGREASING SOLUTION MIXER as a scribe. Past Medical History Past Medical History: Atrial Fibrillation, Asthma, Heart Failure, Fibromyalgia, GERD/Reflux, Hypertension, Prostate Disorder Additional Past Medical History / Comment(s): Mitral valve disease w/ [facility], HIV positive, past HTN and recently low blood pressures, BPH, R ankle gout, chronic nausea, bilateral glaucoma, chronic pain syndrome, chronic low back and bilateral hip pain and occasional cervical pain, DDD, lumbar stenosis/spondylosis, abdominal hernia, previous history of drug overdose. PTSD History of Any Multi-Drug Resistant Organisms: None Reported Past Surgical History: Heart Catheterization, Hernia Repair Additional Past Surgical History / Comment(s): Mitral valve repair at [facility] (2000), Type A aortic disection repordedly treated conservatively by [facility], R inguinal hernia x2, L inguinal hernia, epidural injections to back, hip injections, RFAs, spinal cord stimulator trial-removed, Past Anesthesia/Blood Transfusion Reactions: No Reported Reaction Past Psychological History: Anxiety, Depression, PTSD Smoking Status: Former smoker Past Alcohol Use History: Abuse Past Drug Use History: Prescription Drug Abuse - Past Family History Father History Unknown: Yes Additional Family Medical History / Comment(s): Father was injured at work and of complication during his hospitalization. Mother Additional Family Medical History / Comment(s): Mother is from alcoholism. Brother(s) Additional Family Medical History / Comment(s): alcohol and HF Medications and Allergies Home Medications Medication Instructions Recorded Confirmed Type Bictegrav/Emtricit/Tenofov Ala 1 tab PO DAILY 09/07/21 05/23/24 History [Biktarvy 50-200-25 mg Tablet] Darunavir/Cobicistat [Prezcobix 1 tab PO DAILY 09/07/22 05/23/24 History 800 mg-150 mg Tablet] Albuterol Sulfate [Albuterol 1 - 2 puff INHALATION RT-QID PRN 12/27/23 05/23/24 History Sulfate Hfa] Empagliflozin [Jardiance] 10 mg PO DAILY 12/27/23 05/23/24 History Sacubitril/Valsartan [Entresto 24 1 tab PO BID 12/27/23 05/23/24 History mg-26 mg Tablet] Fenofibrate Nanocrystallized 48 mg PO DAILY 03/17/24 05/23/24 History [Fenofibrate] Levothyroxine Sodium 200 mcg PO DAILY 03/17/24 05/23/24 History oxyCODONE-APAP 10-325MG [Percocet 1 tab PO Q6HR PRN 3 Days #12 tab 03/20/24 05/23/24 Rx 10-325 mg] Apixaban [Eliquis] 2.5 mg PO BID 04/03/24 05/23/24 History Bimatoprost [Lumigan 0.01% Ophth 1 drop BOTH EYES HS 04/03/24 05/23/24 History Soln] Bumetanide [BUMEX] 1 mg PO BID PRN 04/03/24 05/23/24 History Colchicine 0.6 mg PO DIRECTED PRN 04/03/24 05/23/24 History allopurinoL 100 mg PO DAILY 04/03/24 05/23/24 History Escitalopram [Lexapro] 10 mg PO DAILY 30 Days #30 tab 04/28/24 05/23/24 Rx Thiamine [Vitamin B-1] 100 mg PO DAILY 30 Days #30 tab 04/28/24 05/23/24 Rx Amiodarone [Cordarone] 200 mg PO BID 05/23/24 05/23/24 History Cholecalciferol [Vitamin D3 (25 25 mcg PO DAILY 05/23/24 05/23/24 History Mcg = 1000 Iu)] Lidocaine 5% Patch [Lidoderm 5% 1 patch TOPICAL DAILY 05/23/24 05/23/24 History Patch] Mirtazapine 7.5 mg PO HS 05/23/24 05/23/24 History Multivitamins, Thera [Multivitamin 1 tab PO DAILY 05/23/24 05/23/24 History (formulary)] Omeprazole [PriLOSEC] 40 mg PO DAILY 05/23/24 05/23/24 History Rosuvastatin [Crestor] 20 mg PO DAILY 05/23/24 05/23/24 History DULoxetine HCL [Cymbalta] 30 mg PO DAILY #60 cap 05/24/24 Rx Metoprolol Succinate (ER) [Toprol 75 mg PO DAILY #90 tab 05/24/24 Rx XL] Allergies Allergy/AdvReac Type Severity Reaction Status Date / Time abacavir [From Ziagen] Allergy Anaphylaxis Verified 05/23/24 10:55 efavirenz [From Sustiva] Allergy Anaphylaxis Verified 05/23/24 10:55 levofloxacin Allergy Itching Verified 05/23/24 10:55 hydrocodone AdvReac Rapid Verified 05/23/24 10:55 [From Hysingla ER] Heart Rate morphine AdvReac Itching Verified 05/31/24 00:02 sulfamethoxazole AdvReac HIGH Verified 05/23/24 10:55 [From Bactrim] CREATININE LEVEL trimethoprim [From Bactrim] AdvReac HIGH Verified 05/23/24 10:55 CREATININE Physical Exam Vitals: Vital Signs Temp Pulse Pulse Resp BP Pulse Ox 05/31/24 09:05 96 18 143/90 97 05/31/24 06:59 62 22 134/88 95 11/30/24 06:57 92 19 139/81 97 05/31/24 06:07 98.3 F 95 18 147/94 96 05/31/24 05:22 108 H 20 137/82 96 05/31/24 04:42 102 H 22 131/91 96 05/31/24 03:54 102 H 22 148/77 05/31/24 03:16 94 22 129/85 95 05/31/24 03:00 101 H 114/77 96 05/31/24 02:30 93 132/86 93 L 05/31/24 02:00 99 142/90 05/31/24 01:30 104 H 18 132/90 96 05/31/24 00:30 123 H 129/79 96 05/31/24 00:11 113 H 18 123/74 97 05/31/24 00:00 131 H 142 H 142/87 98 05/30/24 23:57 98.3 F 142 H 20 142/87 98 Intake and Output 05/30/24 05/31/24 05/31/24 22:59 06:59 14:59 Other: Weight 78.925 kg Results 05/31/24 00:05 05/31/24 00:05 Cardiac Enzymes 05/31/24 05/31/24 05/31/24 Range/Units 00:05 00:05 06:35 AST 26 (17-59) U/L Troponin I 0.032 0.030 (0.000-0.034) ng/mL Coagulation 05/31/24 Range/Units 00:05 PT 10.2 (10.0-12.5) sec APTT 25.8 (22.0-30.0) sec CBC 05/31/24 Range/Units 00:05 WBC 8.3 (3.8-10.6) k/uL RBC 4.05 L (4.30-5.90) m/uL Hgb 12.4 L (13.0-17.5) gm/dL Hct 39.0 (39.0-53.0) % Plt Count 153 (150-450) k/uL Comprehensive Metabolic Panel 05/31/24 Range/Units 00:05 Sodium 145 (137-145) mmol/L Potassium 4.3 (3.5-5.1) mmol/L Chloride 108 H (98-107) mmol/L Carbon Dioxide 15 L (22-30) mmol/L BUN 13 (9-20) mg/dL Creatinine 0.74 (0.66-1.25) mg/dL Glucose 107 H (74-99) mg/dL Calcium 8.6 (8.4-10.2) mg/dL AST 26 (17-59) U/L ALT 14 (4-49) U/L Alkaline Phosphatase 105 (38-126) U/L Total Protein 8.4 H (6.3-8.2) g/dL Albumin 4.7 (3.5-5.0) g/dL Current Medications Generic Name Dose Route Start Last Admin Trade Name Freq PRN Reason Stop Dose Admin Albuterol Sulfate 2.5 mg 05/31/24 06:53 Albuterol Nebulized 2.5 Mg/3 Ml INHALATION RT-QID PRN Shortness Of Breath Amiodarone HCl 200 mg 05/31/24 09:00 05/31/24 09:16 Amiodarone 200 Mg Tab PO 200 mg BID ALEX Administration Apixaban 2.5 mg 05/31/24 09:00 05/31/24 09:16 Apixaban 2.5 Mg Tablet PO 2.5 mg BID ALEX Administration Protocol Atorvastatin Calcium 40 mg 05/31/24 09:00 05/31/24 09:16 Atorvastatin 40 Mg Tab PO 40 mg DAILY ALEX Administration Chlordiazepoxide HCl 75 mg 05/31/24 05:31 05/31/24 05:50 Chlordiazepoxide 25 Mg Cap PO 75 mg Q4HR PRN Administration Ciwa 8 To 9 Dapagliflozin 5 mg 05/31/24 09:00 05/31/24 09:17 Dapagliflozin Propanediol 5 Mg Tablet PO Not Given DAILY ALEX Escitalopram Oxalate 10 mg 05/31/24 09:00 05/31/24 09:16 Escitalopram 10 Mg Tab PO 10 mg DAILY ALEX Administration Levothyroxine Sodium 200 mcg 05/31/24 09:00 05/31/24 09:16 Levothyroxine 100 Mcg Tab PO 200 mcg 0630 ALEX Administration Lorazepam 2 mg 05/31/24 05:31 Lorazepam 2 Mg/Ml Inj IV 06/02/24 05:31 Q10M PRN CIWA 16 or higher Lorazepam 1 mg 05/31/24 05:31 05/31/24 09:20 Lorazepam 2 Mg/Ml Inj IV 1 mg Q2HR PRN Administration CIWA 8 or 9 Lorazepam 1 mg 05/31/24 05:31 05/31/24 06:34 Lorazepam 2 Mg/Ml Inj IV 1 mg Q1HR PRN Administration CIWA 10 to 15 Metoprolol Succinate 100 mg 05/31/24 09:00 05/31/24 09:16 Metoprolol Succinate (Er) 100 Mg Tab.Er.24h PO 100 mg DAILY ALEX Administration Mirtazapine 7.5 mg 05/31/24 21:00 Mirtazapine 15 Mg Tab PO HS ALEX Nitroglycerin 0.4 mg 05/31/24 06:04 Nitroglycerin Sl Tabs 0.4 Mg Tab SUBLINGUAL Q5M PRN Chest Pain Patient's Own ( 1 tab 05/31/24 09:00 Bictegrav/Emtricit/ PO Tenofov Ala [ DAILY ALEX Biktarvy 50-200-25 Mg Tablet] 1 Each T Patient's Own ( 1 tab 05/31/24 09:00 Darunavir/Cobicistat PO [Prezcobix 800 Mg- DAILY ALEX 150 Mg Tablet] 1 Each Tablet) Pantoprazole Sodium 40 mg 05/31/24 07:30 05/31/24 09:16 Pantoprazole 40 Mg Tablet PO 40 mg [id number] ALEX Administration Sacubitril/Valsartan 1 each 05/31/24 09:00 05/31/24 09:16 Sacubitril/Valsartan 24 Mg-26 Mg Tablet PO 1 each BID ALEX Administration Intake and Output 05/30/24 05/31/24 05/31/24 22:59 06:59 14:59 Other: Weight 78.925 kg 05/31/24 00:05 05/31/24 00:05
[2024-05-31] MEDS: COBICISTAT PO SCH (12:02)
[2024-05-31] MEDS: [UNRECOGNIZED DRUG - OTHER] PO SCH (12:02)
[2024-05-31] MEDS: DARUNAVIR PO SCH (12:02)
[2024-05-31] MEDS: MIRTAZAPINE 15 MG TAB PO SCH (20:50)
[2024-06-01] MEDS: oxyCODONE-APAP 10-325MG 1 EACH TAB PO PRN (01:08)
[2024-06-01 07:45] VITALS: RESP 20; TEMP 98.3
[2024-06-01 09:31] LABS: Chol/HDL Ratio 3.21 Ratio; LDL Cholesterol,Calculated 95.7 mg/dL (0.0-131.0)
--- NOTE | 2024-06-01 11:08 | P.PN ---
Subjective HISTORY OF PRESENT ILLNESS: This is a 63-year-old male with a past medical history significant for HIV, coronary artery disease, valvular heart disease status post mitral valve repair, chronic ascending aortic dissection, ascending aortic aneurysm, paroxysmal atrial fibrillation, cardiomyopathy, hypertension, hyperlipidemia, alcohol abuse, and nicotine dependence. Patient follows in the office with Dr. Morales. We have been asked to see the patient in consultation for A-fib with RVR. Patient examined at the bedside in the emergency room. Patient states around 9 PM last night he was laying in bed when he began to have palpitations. He also reports having shortness of breath. He presented to the ER for further evaluation. The patient was found to be in A-fib with RVR. At the time of examination, he remains in atrial fibrillation with a heart rate in the 90s. Patient states he has noticed more episodes of atrial fibrillation recently. He states he is scheduled to have an appointment with the [facility] on and states he will likely be scheduled for surgery for his aneurysm. He states he has been under a lot of stress because of his possible upcoming surgery so he reports he has been drinking more recently. He reports having 1- 1/2 drinks of vodka yesterday. Patient's serum alcohol level was 243 on admission. Patient does have the shakes at the time of examination and is exhibiting signs of DTs. He also reports that he was smoking cigarettes for and Sunday due to increased rest but states he usually does not smoke anymore. DIAGNOSTICS: - EKG reveals A-fib with RVR - Chest xray negative for acute process - Laboratory data: WBC 8.3. Hemoglobin 12.4. Platelet count 153. Sodium 145. Potassium 4.3. BUN 13. Creatinine 0.75. Magnesium 1.5. Troponin negative x 2. Serum alcohol 243. - Current home cardiac medication list has not been updated at the time of dictation - Most recent echocardiogram obtained in April 2024 revealed ejection fraction 35 to 40%, severe AI, moderate MR - Cardiac catheterization history: Denies 06/01/2024 Patient examined this morning at the bedside. Patient currently denies chest pain or pressure. He denies shortness of breath. Early this morning patient was A-fib with heart rate around 120. However he has since converted to sinus mechanism. His metoprolol has been increased to 75 mg twice a day PHYSICAL EXAM: VITAL SIGNS: Reviewed. GENERAL: Well-developed in no acute distress. HEENT: Head is normocephalic. Pupils are equal, round. Sclerae anicteric. Mucous membranes of the mouth are moist. Neck supple. No JVD or thyromegaly LUNGS: Respirations even and unlabored. Lungs essentially clear to auscultation bilaterally. HEART: Regular rate and rhythm. S1 and S2 heard. Systolic murmur noted. ABDOMEN: Soft. Nondistended. Nontender. EXTREMITIES: Normal range of motion. No clubbing or cyanosis. Peripheral pulses intact. No lower extremity edema NEUROLOGIC: Awake and alert. Oriented x 3. ASSESSMENT: Palpitations Paroxysmal atrial fibrillation with RVR, currently maintaining sinus mechanism Acute alcohol intoxication History of CAD on CTA with 70% LAD Valvular heart disease status post mitral valve repair Chronic ascending aortic dissection Ascending aortic aneurysm Cardiomyopathy, nonischemic Hypertension Hyperlipidemia History of HIV History of alcohol abuse Nicotine dependence PLAN: No need to repeat echocardiogram as this was performed in April 2024 Continue current cardiac medications Abstinence from alcohol recommended Smoking cessation encouraged Patient to follow-up next week at the [facility] for his aneurysm and possible surgical repair Patient is stable for discharge home today from a cardiac standpoint Nurse practitioner note has been reviewed by physician. Signing provider agrees with the documented findings, assessment, and plan of care documented by SERVICE ADMINISTRATOR as a scribe. Objective - Vital Signs Vital signs: Vital Signs Temp 98.3 F 06/01/24 07:27 Pulse 116 H 06/01/24 07:27 Resp 20 06/01/24 07:27 BP 152/77 06/01/24 07:27 Pulse Ox 97 06/01/24 10:28 FiO2 Intake & Output 05/31/24 06/01/24 06/01/24 18:59 06:59 18:59 Output Total 100 Balance -100 Weight 75.296 kg Output: Urine 100 Other: Voiding Method Toilet Toilet Urinal # Bowel Movements 1 - Labs CBC & Chem 7: 05/31/24 00:05 05/31/24 00:05 Labs: Abnormal Lab Results - Last 24 Hours (Table) 05/31/24 Range/Units 00:05 Triglycerides 258.00 H (0.00-149.00) mg/dL Cholesterol 214.00 H (0.00-200.00) mg/dL VLDL Cholesterol, Calc 51.60 H (5.00-40.00) mg/dL HDL Cholesterol 66.70 H (40.00-60.00) mg/dL
[2024-06-01] MEDS: DULoxetine HCL 30 MG CAPSULE.DR PO SCH (11:20)
[2024-06-01] MEDS: allopurinoL 100 MG TAB PO SCH (11:20)
[2024-06-01] MEDS: FENOFIBRATE 54 MG TAB PO SCH (11:21)
[2024-06-01 11:24] VITALS: BP 127/67; PULSE 84
--- NOTE | 2024-06-01 11:39 | P.DS ---
Providers Date of admission: 05/31/24 06:04 Expected date of discharge: 06/01/24 Attending physician: Abisai Bruno MD Consults: 05/31/24 06:04 Consult Physician Urgent Consulting Provider: Sergo Morales Consult Reason/Comments: A fib with rapid ventricular rate Do you want consulting provider notified?: Yes Primary care physician: Girma Malone Hospital Course: #Atypical chest pain: Appears to have MSK component as pain becomes worse with palpation. #Atrial fibrillation with RVR #Acute Alcohol Intoxication -#Anion gap metabolic acidosis #History of stable type a aortic dissection #Hypertension #Hyperlipidemia #Mood disorder #Hypothyroidism Hospital Course: 63-year-old male with a PMH of hypertension, COPD, atrial fibrillation (on Eliquis), systolic CHF with EF 35 to 40%, stable type a aortic dissection, EtOH abuse, and HIV who presented to the emergency room for chest pain. Imaging on admission: - EKG done in the ER showed heart rate of 118 bpm, atrial fibrillation - ER CXR: No acute cardiopulmonary process. Patient was admitted with alcohol intoxication as well as A-fib with RVR. Patient was seen by cardiology and had his metoprolol uptitrated with good resolution of his heart rates back into the 70s. Patient is planning on undergoing surgery for his type a dissection later this month and is very anxious about this, but does have intent to quit drinking and has a plan in place with primary care follow-up as well as therapy sessions. He is compliant with his Cymbalta when she says does help. Patient is discharged today in stable condition with medication adjustments indicated on discharge summary as well as prescription sent to pharmacy. Gen: In NAD, non-toxic HEENT: normocephalic, atraumatic, hearing acuity is intant, mucous membranes moist CVS: perfusing all extremities well, no pitting edema, Respiratory: symmetric chest expansion, no accessory muscle use, GI: soft, NTTP, ND, : no suprapubic tenderness, no CVA tenderness MSK/Derm: no rashes, cyanosis Neuro: CN II-XII intact, no motor weakness, Psych: cooperative, euthymic mood, judgment and insight is intact Patient Condition at Discharge: Good Plan - Discharge Summary Discharge Rx Participant: No New Discharge Prescriptions: Continue Darunavir/Cobicistat [Prezcobix 800 mg-150 mg Tablet] 1 tab PO DAILY Albuterol Sulfate [Albuterol Sulfate Hfa] 2 puff INHALATION RT-QID PRN PRN Reason: Shortness Of Breath Sacubitril/Valsartan [Entresto 24 mg-26 mg Tablet] 1 tab PO BID Levothyroxine Sodium 200 mcg PO DAILY Bumetanide [BUMEX] 1 mg PO BID PRN PRN Reason: swelling/weight gain Apixaban [Eliquis] 2.5 mg PO BID Amiodarone [Cordarone] 200 mg PO BID Cholecalciferol [Vitamin D3 (25 Mcg = 1000 Iu)] 25 mcg PO DAILY Mirtazapine 7.5 mg PO HS Multivitamins, Thera [Multivitamin (formulary)] 1 tab PO DAILY Omeprazole [PriLOSEC] 40 mg PO DAILY Rosuvastatin [Crestor] 20 mg PO DAILY Capsaicin Cream [Trixaicin Cream] 1 applic TOPICAL QID Bictegrav/Emtricit/Tenofov Ala [Biktarvy 50-200-25 mg Tablet] 1 tab PO DAILY Empagliflozin [Jardiance] 10 mg PO DAILY Fenofibrate Nanocrystallized [Fenofibrate] 48 mg PO DAILY oxyCODONE-APAP 10-325MG [Percocet 10-325 mg] 1 tab PO Q6HR PRN 3 Days #12 tab PRN Reason: Pain Bimatoprost [Lumigan 0.01% Ophth Soln] 1 drop BOTH EYES HS allopurinoL 100 mg PO DAILY Escitalopram [Lexapro] 10 mg PO DAILY 30 Days #30 tab Thiamine [Vitamin B-1] 100 mg PO DAILY 30 Days #30 tab Lidocaine 5% Patch [Lidoderm 5% Patch] 1 patch TOPICAL DAILY DULoxetine HCL [Cymbalta] 30 mg PO DAILY #60 cap Changed Metoprolol Succinate (ER) [Toprol XL] 75 mg PO BID #180 tab Discontinued Colchicine 0.6 mg PO DIRECTED PRN PRN Reason: gout flare Discharge Medication List Bictegrav/Emtricit/Tenofov Ala [Biktarvy 50-200-25 mg Tablet] 1 tab PO DAILY 09/07/21 [History] Darunavir/Cobicistat [Prezcobix 800 mg-150 mg Tablet] 1 tab PO DAILY 09/07/22 [History] Albuterol Sulfate [Albuterol Sulfate Hfa] 2 puff INHALATION RT-QID PRN 12/27/23 [History] Empagliflozin [Jardiance] 10 mg PO DAILY 12/27/23 [History] Sacubitril/Valsartan [Entresto 24 mg-26 mg Tablet] 1 tab PO BID 12/27/23 [History] Fenofibrate Nanocrystallized [Fenofibrate] 48 mg PO DAILY 03/17/24 [History] Levothyroxine Sodium 200 mcg PO DAILY 03/17/24 [History] oxyCODONE-APAP 10-325MG [Percocet 10-325 mg] 1 tab PO Q6HR PRN 3 Days #12 tab 03/20/24 [Rx] Apixaban [Eliquis] 2.5 mg PO BID 04/03/24 [History] Bimatoprost [Lumigan 0.01% Ophth Soln] 1 drop BOTH EYES HS 04/03/24 [History] Bumetanide [BUMEX] 1 mg PO BID PRN 04/03/24 [History] allopurinoL 100 mg PO DAILY 04/03/24 [History] Escitalopram [Lexapro] 10 mg PO DAILY 30 Days #30 tab 04/28/24 [Rx] Thiamine [Vitamin B-1] 100 mg PO DAILY 30 Days #30 tab 04/28/24 [Rx] Amiodarone [Cordarone] 200 mg PO BID 05/23/24 [History] Cholecalciferol [Vitamin D3 (25 Mcg = 1000 Iu)] 25 mcg PO DAILY 05/23/24 [Histor y] Lidocaine 5% Patch [Lidoderm 5% Patch] 1 patch TOPICAL DAILY 05/23/24 [History] Mirtazapine 7.5 mg PO HS 05/23/24 [History] Multivitamins, Thera [Multivitamin (formulary)] 1 tab PO DAILY 05/23/24 [ History] Omeprazole [PriLOSEC] 40 mg PO DAILY 05/23/24 [History] Rosuvastatin [Crestor] 20 mg PO DAILY 05/23/24 [History] DULoxetine HCL [Cymbalta] 30 mg PO DAILY #60 cap 05/24/24 [Rx] Capsaicin Cream [Trixaicin Cream] 1 applic TOPICAL QID 05/31/24 [History] Metoprolol Succinate (ER) [Toprol XL] 75 mg PO BID #180 tab 06/01/24 [Rx] Follow up Appointment(s)/Referral(s): Sergo Morales MD [STAFF PHYSICIAN] - 1 Week (Office closed; please call [facility] on Sunday to schedule a follow up appointment.) Girma Malone MD [Primary Care Provider] - 1 Week (Office closed at this time; please call [facility] on Sunday to schedule follow up appointment.) Patient Instructions/Handouts: A-fib (Atrial Fibrillation) (DC), Alcohol Dependence (DC) Discharge Disposition: HOME SELF-CARE
[2024-06-01] MEDS ORDERED: METOPROLOL SUCCINATE (ER) 25 MG TAB.ER.24H PO SCH (21:00)
[2024-06-01] MEDS ORDERED: LATANOPROST 0.005% OPHTH DROPS 2.5 ML BTL BOTH EYES SCH (21:00)
== END 2024-06-01 11:53 | disposition home or self-care (01) ==
LOC: EC 23:49 → 5NMEDONC 05-31 06:04 → INTOOBSV 05-31 06:04 → 3SCARD 05-31 06:12
PROVIDERS: ADMIT Internal Medicine; ATTEND Internal Medicine
DX: R07.89 Other chest pain (principal); I48.0 Paroxysmal atrial fibrillation; F10.139 Alcohol abuse with withdrawal, unspecified; F10.129 Alcohol abuse with intoxication, unspecified; I11.0 Hypertensive heart disease with heart failure; I50.22 Chronic systolic (congestive) heart failure; E87.20 Acidosis, unspecified; K21.9 Gastro-esophageal reflux disease without esophagitis; F41.9 Anxiety disorder, unspecified; F32.A Depression, unspecified; I25.10 Atherosclerotic heart disease of native coronary artery without angina pectoris; E78.5 Hyperlipidemia, unspecified; Z21 Asymptomatic human immunodeficiency virus [HIV] infection status; I71.00 Dissection of unspecified site of aorta; I71.21 Aneurysm of the ascending aorta, without rupture; I42.8 Other cardiomyopathies; N40.0 Benign prostatic hyperplasia without lower urinary tract symptoms; J44.9 Chronic obstructive pulmonary disease, unspecified; E03.9 Hypothyroidism, unspecified; Y90.8 Blood alcohol level of 240 mg/100 ml or more; Z87.891 Personal history of nicotine dependence; Z95.4 Presence of other heart-valve replacement; Z79.01 Long term (current) use of anticoagulants; Z79.890 Hormone replacement therapy; Z79.899 Other long term (current) drug therapy; Z88.1 Allergy status to other antibiotic agents; Z88.2 Allergy status to sulfonamides; Z88.5 Allergy status to narcotic agent
CPT/HCPCS: 96376 ×3; 96374; 96365; 96366; 96375; 99285; 36415; 94760; 93005; 80061; 80053; 83735; 84484; 85025; 85610; 85730; 80320; 71046; G0378 ×2; J2060 ×2; J3475

== ENCOUNTER 2024-06-06 09:38 | Observation (INO) | payer MEDICARE, OTHER ==
[2024-06-06 09:50] VITALS: TEMP 98.3
--- NOTE | 2024-06-06 09:56 | ED ---
General Adult HPI - General Chief complaint: Chest Pain Stated complaint: Chest discomfort Time Seen by Provider: 06/06/24 09:40 Source: patient, EMS, RN notes reviewed Mode of arrival: EMS Limitations: no limitations - History of Present Illness Initial comments: Patient is a 63-year-old male present to the emergency department concerns with chest discomfort. Patient has known nonoperable aortic disease and his doctor from [facility] told him he will not survive long. Patient has been told he will not survive a procedure. Patient states this is secondary to prior cardiac problems. Patient does have history of aneurysm with blockage as well as 2 areas of tear as well as blockage up in his neck. Patient has chronic chest discomfort, somewhat worse over the past couple of weeks. Patient does feel little bit short of breath. Patient is on Eliquis. Patient admits to drinking alcohol heavily last night and again this morning. Patient does drink alcohol frequently. Patient states his heart rate was elevated up to 140 earlie r. Patient has history of A-fib. Patient has also started smoking again. - Related Data Home Medications Medication Instructions Recorded Confirmed Bictegrav/Emtricit/Tenofov Ala 1 tab PO DAILY 09/07/21 06/06/24 [Biktarvy 50-200-25 mg Tablet] Darunavir/Cobicistat [Prezcobix 1 tab PO DAILY 09/07/22 06/06/24 800 mg-150 mg Tablet] Albuterol Sulfate [Albuterol 2 puff INHALATION RT-QID PRN 12/27/23 06/06/24 Sulfate Hfa] Empagliflozin [Jardiance] 10 mg PO DAILY 12/27/23 06/06/24 Sacubitril/Valsartan [Entresto 24 1 tab PO BID 12/27/23 06/06/24 mg-26 mg Tablet] Fenofibrate Nanocrystallized 48 mg PO DAILY 03/17/24 06/06/24 [Fenofibrate] Levothyroxine Sodium 200 mcg PO DAILY 03/17/24 06/06/24 Apixaban [Eliquis] 2.5 mg PO BID 04/03/24 06/06/24 Bimatoprost [Lumigan 0.01% Ophth 1 drop BOTH EYES HS 04/03/24 06/06/24 Soln] Bumetanide [BUMEX] 1 mg PO BID PRN 04/03/24 06/06/24 allopurinoL 100 mg PO DAILY 04/03/24 06/06/24 Amiodarone [Cordarone] 200 mg PO BID 05/23/24 06/06/24 Cholecalciferol [Vitamin D3 (25 25 mcg PO DAILY 05/23/24 06/06/24 Mcg = 1000 Iu)] Lidocaine 5% Patch [Lidoderm 5% 1 patch TOPICAL DAILY 05/23/24 06/06/24 Patch] Mirtazapine 7.5 mg PO HS 05/23/24 06/06/24 Multivitamins, Thera [Multivitamin 1 tab PO DAILY 05/23/24 06/06/24 (formulary)] Omeprazole [PriLOSEC] 40 mg PO DAILY 05/23/24 06/06/24 Rosuvastatin [Crestor] 20 mg PO DAILY 05/23/24 06/06/24 Capsaicin Cream [Trixaicin Cream] 1 applic TOPICAL QID 05/31/24 06/06/24 Metoprolol Succinate (ER) [Toprol 100 mg PO DAILY 06/06/24 06/06/24 XL] Previous Rx's Medication Instructions Recorded oxyCODONE-APAP 10-325MG [Percocet 1 tab PO Q6HR PRN 3 Days #12 tab 03/20/24 10-325 mg] Escitalopram [Lexapro] 10 mg PO DAILY 30 Days #30 tab 04/28/24 Thiamine [Vitamin B-1] 100 mg PO DAILY 30 Days #30 tab 04/28/24 DULoxetine HCL [Cymbalta] 30 mg PO DAILY #60 cap 05/24/24 Allergies Allergy/AdvReac Type Severity Reaction Status Date / Time abacavir [From Ziagen] Allergy Anaphylaxis Verified 06/06/24 10:47 efavirenz [From Sustiva] Allergy Anaphylaxis Verified 06/06/24 10:47 levofloxacin Allergy Itching Verified 06/06/24 10:47 hydrocodone AdvReac Rapid Verified 06/06/24 10:47 [From Hysingla ER] Heart Rate morphine AdvReac Itching Verified 06/06/24 10:47 sulfamethoxazole AdvReac HIGH Verified 06/06/24 10:47 [From Bactrim] CREATININE LEVEL trimethoprim [From Bactrim] AdvReac HIGH Verified 12/06/24 10:47 CREATININE Review of Systems ROS Statement: Those systems with pertinent positive or pertinent negative responses have been documented in the HPI. ROS Other: All systems not noted in ROS Statement are negative. Constitutional: Denies: fever Eyes: Denies: eye pain ENT: Denies: ear pain Cardiovascular: Reports: as per HPI, chest pain Musculoskeletal: Denies: back pain Skin: Denies: rash Neurological: Denies: weakness Psychiatric: Reports: anxiety Past Medical History Past Medical History: Atrial Fibrillation, Asthma, Heart Failure, Fibromyalgia, GERD/Reflux, Hypertension, Prostate Disorder Additional Past Medical History / Comment(s): Mitral valve disease w/ MV repair at [facility] 2000, HIV positive, past HTN and recently low blood pressures, BPH, R ankle gout, chronic nausea, bilateral glaucoma, chronic pain syndrome, chronic low back and bilateral hip pain and occasional cervical pain, DDD, lumbar stenosis/spondylosis, abdominal hernia, previous history of drug overdose. PTSD History of Any Multi-Drug Resistant Organisms: None Reported Past Surgical History: Heart Catheterization, Hernia Repair Additional Past Surgical History / Comment(s): Mitral valve repair at [facility] (2000), Type A aortic disection repordedly treated conservatively by [facility], R inguinal hernia x2, L inguinal hernia, epidural injections to back, hip injections, RFAs, spinal cord stimulator trial-removed, Past Anesthesia/Blood Transfusion Reactions: No Reported Reaction Past Psychological History: Anxiety, Depression, PTSD Smoking Status: Former smoker Past Alcohol Use History: Abuse Past Drug Use History: Prescription Drug Abuse - Past Family History Father History Unknown: Yes Additional Family Medical History / Comment(s): Father was injured at work and of complication during his hospitalization. Mother Additional Family Medical History / Comment(s): Mother is from alcoholism. Brother(s) Additional Family Medical History / Comment(s): alcohol and HF General Exam Limitations: no limitations General appearance: alert, in no apparent distress Head exam: Present: normocephalic Eye exam: Present: normal appearance Neck exam: Present: normal inspection Respiratory exam: Present: normal lung sounds bilaterally. Absent: chest wall tenderness Cardiovascular Exam: Present: regular rate, normal rhythm Expanded Peripheral pulses: 2+: Radial (R), Radial (L), Posterior Tibialis (R), Posterior Tibialis (L) GI/Abdominal exam: Present: soft. Absent: tenderness Extremities exam: Present: normal inspection. Absent: pedal edema, calf t enderness Neurological exam: Present: alert Psychiatric exam: Present: normal affect, normal mood Skin exam: Present: normal color Course Vital Signs 06/06/24 06/06/24 09:40 10:00 Temperature 98.3 F Pulse Rate 84 81 Respiratory 21 21 Rate Blood Pressure 115/66 113/63 O2 Sat by Pulse 92 L 98 Oximetry EKG Findings - EKG Results: EKG: interpreted by ERMD (Septal Q waves. Nonspecific ST-T. Multiple old EKGs reviewed over the past several weeks.), sinus rhythm, normal axis Medical Decision Making - Medical Decision Making Was pt. sent in by a medical professional or institution (, PA, WASTE MINIMIZATION TECHNICIAN, urgent care, hospital, or [facility]...) When possible be specific @ -No Did you speak to anyone other than the patient for history (EMS, parent, family, police, friend...)? What history was obtained from this source @ -EMS provides history of transportation and history provided to them Did you review nursing and triage notes (agree or disagree)? Why? @ -I reviewed and agree with nursing and triage notes Were old charts reviewed (outside hosp., previous admission, EMS record, old EKG, old radiological studies, urgent care reports/EKG's, chcf records)? Report findings @ -Previous admissions reviewed Differential Diagnosis (chest pain, altered mental status, abdominal pain women, abdominal pain men, vaginal bleeding, weakness, fever, dyspnea, syncope, headache, dizziness, GI bleed, back pain, seizure, CVA, palpatations, mental health, musculoskeletal)? @ -Differential Chest Pain: Stable Angina, Unstable Angina, STEMI, NSTEMI Aortic Dissection, Pneumothorax, Musculoskeletal, Esophageal Spasm GERD, Cholecystitis, Pancreatitis, Zoster, this is not meant to be an all-inclusive list. EKG interpreted by me (3pts min.). @ -As above X-rays interpreted by me (1pt min.). @ -Chest x-ray shows some cardiomegaly and increased interstitial markings. CT interpreted by me (1pt min.). @ -None done U/S interpreted by me (1pt. min.). @ -None done What testing was considered but not performed or refused? (CT, X-rays, U/S, labs)? Why? @ -None What meds were considered but not given or refused? Why? @ -None Did you discuss the management of the patient with other professionals (professionals i.e. , PA, WASTE MINIMIZATION TECHNICIAN, lab, RT, psych nurse, transition social worker, tanning salon attendant, teacher, inshore undersea warfare officer, rn case mgr)? Give summary @ -Case discussed with practitioner Ismael who will admit covering Dr. Malone Was smoking cessation discussed for >3mins.? @ -No Was critical care preformed (if so, how long)? @ -No Were there social determinants of health that impacted care today? How? (Homelessness, low income, unemployed, alcoholism, drug addiction, transportation, low edu. Level, literacy, decrease access to med. care, [place] [facility], rehab)? @ -No Was there de-escalation of care discussed even if they declined (Discuss DNR or withdrawal of care, Hospice)? DNR status @ -No What co-morbidities impacted this encounter? (DM, HTN, Smoking, COPD, CAD, Cancer, CVA, ARF, Chemo, Hep., AIDS, mental health diagnosis, sleep apnea, morbid obesity)? @ -History of alcohol use and previous chest pain and workup in aorta disease, see above Was patient admitted / discharged? Hospital course, mention meds given and route, prescriptions, significant lab abnormalities, going to OR and other pertinent info. @ -Patient presents with chest discomfort, has chronic chest discomfort more prominent over the past couple of weeks. First troponin unremarkable. Patient has chronic nonoperable aortic disease and therefore this was not reassessed. Patient was told he is not a surgical candidate. Patient updated on results and plan. Patient will be admitted with cardiac consult. Admission orders written. Patient questions whether or not he will stay. Patient is alert and oriented and does not appear significantly clinically intoxicated despite his alcohol level. Undiagnosed new problem with uncertain prognosis? @ -No Drug Therapy requiring intensive monitoring for toxicity (Heparin, Nitro, Insulin, Cardizem)? @ -No Were any procedures done? @ -No Diagnosis/symptom? @ -Chest pain, alcohol intoxication Acute, or Chronic, or Acute on Chronic? @ -Acute on chronic, acute on chronic Uncomplicated (without systemic symptoms) or Complicated (systemic symptoms)? @ -Default Side effects of treatment? @ -No Exacerbation, Progression, or Severe Exacerbation? @ -No Poses a threat to life or bodily function? How? (Chest pain, USA, PR, pneumonia, PE, COPD, DKA, ARF, appy, cholecystitis, CVA, Diverticulitis, Homicidal, Suicidal, threat to staff... and all critical care pts) @ -Threat to cardiac function - Lab Data Result diagrams: 06/06/24 09:57 06/06/24 09:57 Lab Results 06/06/24 06/06/24 06/06/24 Range/Units 09:57 09:57 09:57 WBC 4.8 (3.8-10.6) k/uL RBC 3.31 L (4.30-5.90) m/uL Hgb 10.4 L (13.0-17.5) gm/dL Hct 32.1 L (39.0-53.0) % MCV 97.1 (80.0-100.0) fL MCH 31.4 (25.0-35.0) pg MCHC 32.4 (31.0-37.0) g/dL RDW 15.9 H (11.5-15.5) % Plt Count 111 L (150-450) k/uL MPV 8.6 Neutrophils % 55 % Lymphocytes % 35 % Monocytes % 6 % Eosinophils % 2 % Basophils % 0 % Neutrophils # 2.6 (1.3-7.7) k/uL Lymphocytes # 1.7 (1.0-4.8) k/uL Monocytes # 0.3 (0-1.0) k/uL Eosinophils # 0.1 (0-0.7) k/uL Basophils # 0.0 (0-0.2) k/uL Hypochromasia Slight PT 10.4 (10.0-12.5) sec INR 0.9 (<1.2) APTT 29.0 (22.0-30.0) sec Sodium 147 H (137-145) mmol/L Potassium 4.2 (3.5-5.1) mmol/L Chloride 110 H (98-107) mmol/L Carbon Dioxide 29 (22-30) mmol/L Anion Gap 8 mmol/L BUN 11 (9-20) mg/dL Creatinine 0.70 (0.66-1.25) mg/dL Est GFR (CKD-EPI)AfAm >90 (>60 ml/min/1.73 sqM) Est GFR (CKD-EPI)NonAf >90 (>60 ml/min/1.73 sqM) Glucose 99 (74-99) mg/dL Calcium 7.9 L (8.4-10.2) mg/dL Magnesium 1.5 L (1.6-2.3) mg/dL Total Bilirubin 0.3 (0.2-1.3) mg/dL AST 49 (17-59) U/L ALT 23 (4-49) U/L Alkaline Phosphatase 124 (38-126) U/L Troponin I (0.000-0.034) ng/mL NT-Pro-B Natriuret Pep 912 pg/mL Total Protein 6.7 (6.3-8.2) g/dL Albumin 3.5 (3.5-5.0) g/dL Amylase 82 (30-110) U/L Lipase 139 (23-300) U/L Serum Alcohol 281 H* mg/dL 06/06/24 Range/Units 09:57 WBC (3.8-10.6) k/uL RBC (4.30-5.90) m/uL Hgb (13.0-17.5) gm/dL Hct (39.0-53.0) % MCV (80.0-100.0) fL MCH (25.0-35.0) pg MCHC (31.0-37.0) g/dL RDW (11.5-15.5) % Plt Count (150-450) k/uL MPV Neutrophils % % Lymphocytes % % Monocytes % % Eosinophils % % Basophils % % Neutrophils # (1.3-7.7) k/uL Lymphocytes # (1.0-4.8) k/uL Monocytes # (0-1.0) k/uL Eosinophils # (0-0.7) k/uL Basophils # (0-0.2) k/uL Hypochromasia PT (10.0-12.5) sec INR (<1.2) APTT (22.0-30.0) sec Sodium (137-145) mmol/L Potassium (3.5-5.1) mmol/L Chloride (98-107) mmol/L Carbon Dioxide (22-30) mmol/L Anion Gap mmol/L BUN (9-20) mg/dL Creatinine (0.66-1.25) mg/dL Est GFR (CKD-EPI)AfAm (>60 ml/min/1.73 sqM) Est GFR (CKD-EPI)NonAf (>60 ml/min/1.73 sqM) Glucose (74-99) mg/dL Calcium (8.4-10.2) mg/dL Magnesium (1.6-2.3) mg/dL Total Bilirubin (0.2-1.3) mg/dL AST (17-59) U/L ALT (4-49) U/L Alkaline Phosphatase (38-126) U/L Troponin I 0.019 (0.000-0.034) ng/mL NT-Pro-B Natriuret Pep pg/mL Total Protein (6.3-8.2) g/dL Albumin (3.5-5.0) g/dL Amylase (30-110) U/L Lipase (23-300) U/L Serum Alcohol mg/dL Disposition Clinical Impression: Chest pain Disposition: ADMITTED IP TO THIS HOSP Is patient prescribed a controlled substance at d/c from ED?: No Referrals: Girma Malone MD [Primary Care Provider] - 1-2 days Time of Disposition: 12:32
[2024-06-06 10:17] LABS: Basophils % (A) 0 %; Eosinophils # (A) 0.1 k/uL (0-0.7); Eosinophils % (A) 2 %; HCT 32.1 % (39.0-53.0); HGB 10.4 gm/dL (13.0-17.5); Hypochromasia Slight; Lymphocytes # (A) 1.7 k/uL (1.0-4.8); Lymphocytes % (A) 35 %; MCH 31.4 pg (25.0-35.0); MCHC 32.4 g/dL (31.0-37.0); MCV 97.1 fL (80.0-100.0); Mean Platelet Volume 8.6; Monocytes # (A) 0.3 k/uL (0-1.0); Monocytes % (A) 6 %; Neutrophils # (A) 2.6 k/uL (1.3-7.7); Neutrophils % (A) 55 %; Platelet Count 111 k/uL (150-450); RBC 3.31 m/uL (4.30-5.90); RDW 15.9 % (11.5-15.5); WBC 4.8 k/uL (3.8-10.6)
[2024-06-06 10:27] LABS: INR 0.9 (<1.2); Prothrombin Time 10.4 sec (10.0-12.5)
[2024-06-06] MEDS: MAG HYDROX/AL HYDROX/SIMETH 30 ML, HYOSCYAMINE ELIXIR 10 ML, LIDOCAINE VISCOUS 2% 10 ML PO STA (10:28)
[2024-06-06 10:29] LABS: ALT 23 U/L (4-49); AST 49 U/L (17-59); African American GFR (CKD) >90 (>60 ml/min/1.73 sqM); Albumin 3.5 g/dL (3.5-5.0); Alkaline Phosphatase 124 U/L (38-126); Amylase 82 U/L (30-110); Anion Gap 8 mmol/L; Blood Urea Nitrogen 11 mg/dL (9-20); Calcium 7.9 mg/dL (8.4-10.2); Carbon Dioxide 29 mmol/L (22-30); Chloride 110 mmol/L (98-107); Glucose 99 mg/dL (74-99); Lipase 139 U/L (23-300); Magnesium 1.5 mg/dL (1.6-2.3); Non-African American GFR(CKD) >90 (>60 ml/min/1.73 sqM); Potassium 4.2 mmol/L (3.5-5.1); Sodium 147 mmol/L (137-145); Total Bilirubin 0.3 mg/dL (0.2-1.3); Total Protein 6.7 g/dL (6.3-8.2)
[2024-06-06 10:37] LABS: NT-Pro-B-Type Natriuretic Pept 912 pg/mL
[2024-06-06 10:44] LABS: Alcohol 281 mg/dL
--- NOTE | 2024-06-06 11:12 | XR ---
EXAMINATION TYPE: XR chest 2V DATE OF EXAM: 06/06/2024 10:58 AM COMPARISON: Chest radiographs from 05/31/2024 CLINICAL INDICATION: Male, 63 years old with history of Chest Pain; TECHNIQUE: XR chest 2V Frontal and lateral views of the chest. FINDINGS: Lungs/Pleura: There is no evidence of pleural effusion, focal consolidation, or pneumothorax. Pulmonary vascularity: Pulmonary vascular congestion. Heart/mediastinum: Cardiomediastinal silhouette is prominent in size. Atherosclerotic calcifications are seen in the aorta. Musculoskeletal: No acute osseous pathology. IMPRESSION: Cardiomegaly and mild pulmonary vascular congestion. Correlate with BNP for congestive heart failure. [facility], , 06/06/2024 11:10 AM
[2024-06-06] MEDS ORDERED: NITROGLYCERIN SL TABS 0.4 MG TAB SUBLINGUAL PRN (12:32)
[2024-06-06] MEDS ORDERED: ASPIRIN 81 MG PO STA (12:32)
[2024-06-06] MEDS ORDERED: LORazepam 1 MG TAB PO PRN ×3 (12:33)
[2024-06-06] MEDS ORDERED: THIAMINE 100 MG/ML 2 ML VIAL IM STA (12:33)
[2024-06-06] MEDS ORDERED: LORazepam 0.5 MG TAB PO PRN (12:33)
[2024-06-06] MEDS ORDERED: BUMETANIDE 1 MG TAB PO PRN (12:34)
[2024-06-06] MEDS ORDERED: ALBUTEROL NEBULIZED 2.5 MG/3 ML INHALATION PRN (12:34)
[2024-06-06] MEDS ORDERED: oxyCODONE-APAP 10-325MG 1 EACH TAB PO PRN (12:34)
[2024-06-06] MEDS ORDERED: MAGNESIUM SULFATE-D5W PMX 1 GM in DEXTROSE/WATER 1 100ML.BAG IVPB SCH (13:30)
[2024-06-06 13:40] VITALS: BP 110/55; PULSE 77; RESP 20
--- NOTE | 2024-06-06 14:17 | P.HPIM ---
History of Present Illness H&P Date: 06/06/24 History of Presenting Illness: Patient is a 63-year-old male with a past medical history of atrial fibrillation on anticoagulation with Eliquis, chronic systolic heart failure with EF of 35 to 40%, stable type A aortic dissection, EtOH abuse, and HIV. He presented to the emergency department with a chief complaint of chest pain and palpitations. Patient reports that his cardiothoracic surgeon from [facility] told him he is not medically stable to undergo bypass surgery and he has been very anxious and drinking more than normal approximately 1/5 of alcohol daily with last drink being just prior to arrival to the emergency department. Patient reports this morning waking up and feeling fine taking his cardiac medications but shortly after he began feeling palpitations and his heart rate was over 140 accompanied by chest pain so he called EMS for transport to the emergency department for evaluation. Patient denied having any headache, lightheadedness, dizziness, shortness of breath, or any other complaints at this time. Upon arrival to our facility, patient underwent evaluation in the emergency department. Vital signs upon arrival show blood pressure 115/66, heart rate 84, respiratory rate 21, temp 98.3 F, and SpO2 of 92% on room air. EKG completed showing normal sinus rhythm at 78 bpm. Chest x-ray completed revealing cardiomegaly and mild pulmonary vascular congestion. And reviewed. CBC showing bicytopenia with hemoglobin of 10.4 platelet count of 111. BMP showing hyperchloremic hypernatremia with sodium of 147 and chloride of 110. Blood glucose was 99. Magnesium was low at 1.5. Liver profile unremarkable. Troponin 0.019 and proBNP 912. Serum alcohol level was 281. Patient admitted under our services with consultation to cardiology. Review of systems: Pertinent positives and negatives as discussed in HPI, a complete review of systems was performed and all other systems are negative. Physical exam: Vital signs reviewed and stable. General: Nontoxic, no distress and appears stated age. Derm: Skin warm and dry, normal coloration for ethnicity. Head: Atraumatic, normocephalic and symmetric. Eyes: EOM's intact, no lid lag, and anicteric sclera Mouth: no lip lesions, mucus membranes moist Cardiovascular: regular rate and rhythm with normal S1S2, systolic murmur, positive posterior tibial pulses bilaterally, and cap refill < 2 seconds. Lungs: Respirations even, regular, and unlabored on room air. Lungs CTA bilaterally, no rhonchi, no rales, no wheezing, and no accessory muscle usage. Abdominal: soft, nontender to palpation, no guarding, no appreciable organomegaly Ext: ROM intact. No gross muscle atrophy, scant BLE edema, no contractures Neuro: Speech clear, face symmetrical and CN II-XII grossly intact with no noted focal neuro deficits Psych: Alert and oriented to person, place, time, and situation. Appropriate and pleasant affect. Assessment and Plan of Care: Chest pain and palpitations, rule out acute coronary event Paroxysmal atrial fibrillation Chronic systolic heart failure CAD Type A aortic dissection -Cardiology consulted, appreciate recommendations -Telemetry monitoring -Trend troponins -Cardiac diet, NPO at midnight -Aspirin 81 mg daily, rosuvastatin 20 mg daily, Entresto 24-26 mg tablet twice daily, Eliquis 2.5 mg twice daily, amiodarone 200 mg twice daily, Bumex 1 mg da fariha, metoprolol succinate 100 mg daily, Jardiance 10 mg daily, and fenofibrate 48 mg daily. Alcohol Intoxication in active alcoholic -Order placed for monitoring of CIWA scores and patient to be medicated with Ativan 0.5 mg every 4 hours as needed for CIWA score of 4-5, Ativan 1 mg every 4 hours for CIWA score of 6-7, Ativan 2 mg every 3 hours CIWA score of 8-9, and Ativan 2 mg every 2 hours forr CIWA score of 10 or greater. -Continuous IV hydration. -Thiamine 100 mg daily, and Multivitamin daily, and Folate 1 mg daily -Seizure, fall, aspiration, and elopement precautions in place. -Continued close monitoring of electrolytes and replace as needed. -Telemetry monitoring. HIV -Continue Biktarvy 500 200 25 mg daily as Prezcobix 800-150 mg daily.. Depression and anxiety -Continue Cymbalta 30 mg daily-and Lexapro 10 mg daily. The patient is admitted with an anticipated less than 2 midnight stay for evaluation of chest pain, palpitations and alcohol intoxication CODE STATUS: Full code DVT prophylaxis: Vivian Anticipated discharge date: Likely 24 to [address]: Home Patient was seen independently by Nurse Practitioner. This document was prepared using [employer] dictation software. Please allow for errors in museum docent while rare they do occur. Ismael Mireles NP rendered care for this patient independently, reviewed the findings and plan as documented in the note above and agree with plan. I did not physically speak with or examine the patient on this date. Past Medical History Past Medical History: Atrial Fibrillation, Asthma, Heart Failure, Fibromyalgia, GERD/Reflux, Hypertension, Prostate Disorder Additional Past Medical History / Comment(s): Mitral valve disease w/ MV repair at [facility] 2000, HIV positive, past HTN and recently low blood pressures, BPH, R ankle gout, chronic nausea, bilateral glaucoma, chronic pain syndrome, chronic low back and bilateral hip pain and occasional cervical pain, DDD, lumbar stenosis/spondylosis, abdominal hernia, previous history of drug overdose. PTSD History of Any Multi-Drug Resistant Organisms: None Reported Past Surgical History: Heart Catheterization, Hernia Repair Additional Past Surgical History / Comment(s): Mitral valve repair at [facility] (21 07), Type A aortic disection repordedly treated conservatively by [facility], R inguinal hernia x2, L inguinal hernia, epidural injections to back, hip injections, RFAs, spinal cord stimulator trial-removed, Past Anesthesia/Blood Transfusion Reactions: No Reported Reaction Past Psychological History: Anxiety, Depression, PTSD Smoking Status: Former smoker Past Alcohol Use History: Abuse Past Drug Use History: Prescription Drug Abuse - Past Family History Father History Unknown: Yes Additional Family Medical History / Comment(s): Father was injured at work and of complication during his hospitalization. Mother Additional Family Medical History / Comment(s): Mother is from alcoholism. Brother(s) Additional Family Medical History / Comment(s): alcohol and HF Medications and Allergies Home Medications Medication Instructions Recorded Confirmed Type Bictegrav/Emtricit/Tenofov Ala 1 tab PO DAILY 09/07/21 06/06/24 History [Biktarvy 50-200-25 mg Tablet] Darunavir/Cobicistat [Prezcobix 1 tab PO DAILY 09/07/22 06/06/24 History 800 mg-150 mg Tablet] Albuterol Sulfate [Albuterol 2 puff INHALATION RT-QID PRN 12/27/23 06/06/24 History Sulfate Hfa] Empagliflozin [Jardiance] 10 mg PO DAILY 12/27/23 06/06/24 History Sacubitril/Valsartan [Entresto 24 1 tab PO BID 12/27/23 06/06/24 History mg-26 mg Tablet] Fenofibrate Nanocrystallized 48 mg PO DAILY 03/17/24 06/06/24 History [Fenofibrate] Levothyroxine Sodium 200 mcg PO DAILY 03/17/24 06/06/24 History oxyCODONE-APAP 10-325MG [Percocet 1 tab PO Q6HR PRN 3 Days #12 tab 03/20/24 06/06/24 Rx 10-325 mg] Apixaban [Eliquis] 2.5 mg PO BID 04/03/24 06/06/24 History Bimatoprost [Lumigan 0.01% Ophth 1 drop BOTH EYES HS 04/03/24 06/06/24 History Soln] Bumetanide [BUMEX] 1 mg PO BID PRN 04/03/24 06/06/24 History allopurinoL 100 mg PO DAILY 04/03/24 06/06/24 History Escitalopram [Lexapro] 10 mg PO DAILY 30 Days #30 tab 04/28/24 06/06/24 Rx Thiamine [Vitamin B-1] 100 mg PO DAILY 30 Days #30 tab 04/28/24 06/06/24 Rx Amiodarone [Cordarone] 200 mg PO BID 05/23/24 06/06/24 History Cholecalciferol [Vitamin D3 (25 25 mcg PO DAILY 05/23/24 06/06/24 History Mcg = 1000 Iu)] Lidocaine 5% Patch [Lidoderm 5% 1 patch TOPICAL DAILY 05/23/24 06/06/24 History Patch] Mirtazapine 7.5 mg PO HS 05/23/24 06/06/24 History Multivitamins, Thera [Multivitamin 1 tab PO DAILY 05/23/24 06/06/24 History (formulary)] Omeprazole [PriLOSEC] 40 mg PO DAILY 05/23/24 06/06/24 History Rosuvastatin [Crestor] 20 mg PO DAILY 05/23/24 06/06/24 History DULoxetine HCL [Cymbalta] 30 mg PO DAILY #60 cap 05/24/24 06/06/24 Rx Capsaicin Cream [Trixaicin Cream] 1 applic TOPICAL QID 05/31/24 06/06/24 History Metoprolol Succinate (ER) [Toprol 100 mg PO DAILY 06/06/24 06/06/24 History XL] Allergies Allergy/AdvReac Type Severity Reaction Status Date / Time abacavir [From Ziagen] Allergy Anaphylaxis Verified 06/06/24 10:47 efavirenz [From Sustiva] Allergy Anaphylaxis Verified 06/06/24 10:47 levofloxacin Allergy Itching Verified 06/06/24 10:47 hydrocodone AdvReac Rapid Verified 06/06/24 10:47 [From Hysingla ER] Heart Rate morphine AdvReac Itching Verified 06/06/24 10:47 sulfamethoxazole AdvReac HIGH Verified 06/06/24 10:47 [From Bactrim] CREATININE LEVEL trimethoprim [From Bactrim] AdvReac HIGH Verified 06/06/24 10:47 CREATININE Physical Exam Vitals: Vital Signs Temp Pulse Resp BP Pulse Ox 06/06/24 10:00 81 21 113/63 98 06/06/24 09:40 98.3 F 84 21 115/66 92 L Intake and Output 06/05/24 06/06/24 06/06/24 22:59 06:59 14:59 Other: Weight 77.111 kg Results CBC & Chem 7: 06/06/24 09:57 06/06/24 09:57 Labs: Abnormal Lab Results - Last 24 Hours (Table) 06/06/24 06/06/24 Range/Units 09:57 09:57 RBC 3.31 L (4.30-5.90) m/uL Hgb 10.4 L (13.0-17.5) gm/dL Hct 32.1 L (39.0-53.0) % RDW 15.9 H (11.5-15.5) % Plt Count 111 L (150-450) k/uL Sodium 147 H (137-145) mmol/L Chloride 110 H (98-107) mmol/L Calcium 7.9 L (8.4-10.2) mg/dL Magnesium 1.5 L (1.6-2.3) mg/dL Serum Alcohol 281 H* mg/dL
--- NOTE | 2024-06-06 14:23 | P.DS ---
Providers Date of admission: 06/06/24 12:34 Expected date of discharge: 06/06/24 Attending physician: Case Steen MD Consults: 06/06/24 12:32 Consult Physician Urgent Consulting Provider: Sergo Morales Consult Reason/Comments: cp Do you want consulting provider notified?: Yes Primary care physician: Girma [facility] Course: THIS IS NOT A DISCHARGE SUMMARY, BUT A SUMMARY OF CARE RECEIVED NOTIFICATION FROM ER NURSE THAT PT LEFT AGAINST MEDICAL ADVICE on 06/06/2024 at 1:38 PM. Discharge Diagnosis: Chest pain and palpitations, rule out acute coronary event Paroxysmal atrial fibrillation Chronic systolic heart failure CAD Type A aortic dissection Alcohol Intoxication in active alcoholic HIV Depression and anxiety Hospital Course: Patient is a 63-year-old male with a past medical history of atrial fibrillation on anticoagulation with Eliquis, chronic systolic heart failure with EF of 35 to 40%, stable type A aortic dissection, EtOH abuse, and HIV. He presented to the emergency department with a chief complaint of chest pain and palpitations. Patient reports that his cardiothoracic surgeon from [facility] told him he is not medically stable to undergo bypass surgery and he has been very anxious and drinking more than normal approximately 1/5 of alcohol daily with last drink being just prior to arrival to the emergency department. Patient reports this morning waking up and feeling fine taking his cardiac medications but shortly after he began feeling palpitations and his heart rate was over 140 accompanied by chest pain so he called EMS for transport to the emergency department for evaluation. Patient denied having any headache, lightheadedness, dizziness, shortness of breath, or any other complaints at this time. Upon arrival to our facility, patient underwent evaluation in the emergency department. Vital signs upon arrival show blood pressure 115/66, heart rate 84, respiratory rate 21, temp 98.3 F, and SpO2 of 92% on room air. EKG completed showing normal sinus rhythm at 78 bpm. Chest x-ray completed revealing cardiomegaly and mild pulmonary vascular congestion. And reviewed. CBC showing bicytopenia with hemoglobin of 10.4 platelet count of 111. BMP showing hyperchloremic hypernatremia with sodium of 147 and chloride of 110. Blood glucose was 99. Magnesium was low at 1.5. Liver profile unremarkable. Troponin 0.019 and proBNP 912. Serum alcohol level was 281. Patient admitted under our services with consultation to cardiology. Received notification from RN that patient left AGAINST MEDICAL ADVICE shortly after admission on 06/06/2024 at 1:38 PM. Per RN patient signing out AMA was approved by ED physician. This document was prepared using [employer]ian[employer] dictation software. Please allow for errors in marketing assistant while rare they do occur. Ismael Mireles NP rendered care for this patient independently, reviewed the findings and plan as documented in the note above. I did not physically speak with or examine the patient on this date. Patient Condition at Discharge: Undetermined Plan - Discharge Summary New Discharge Prescriptions: No Action Darunavir/Cobicistat [Prezcobix 800 mg-150 mg Tablet] 1 tab PO DAILY Albuterol Sulfate [Albuterol Sulfate Hfa] 2 puff INHALATION RT-QID PRN PRN Reason: Shortness Of Breath Sacubitril/Valsartan [Entresto 24 mg-26 mg Tablet] 1 tab PO BID Levothyroxine Sodium 200 mcg PO DAILY Bumetanide [BUMEX] 1 mg PO BID PRN PRN Reason: swelling/weight gain Apixaban [Eliquis] 2.5 mg PO BID Amiodarone [Cordarone] 200 mg PO BID Cholecalciferol [Vitamin D3 (25 Mcg = 1000 Iu)] 25 mcg PO DAILY Mirtazapine 7.5 mg PO HS Multivitamins, Thera [Multivitamin (formulary)] 1 tab PO DAILY Omeprazole [PriLOSEC] 40 mg PO DAILY Rosuvastatin [Crestor] 20 mg PO DAILY Capsaicin Cream [Trixaicin Cream] 1 applic TOPICAL QID Metoprolol Succinate (ER) [Toprol XL] 100 mg PO DAILY Bictegrav/Emtricit/Tenofov Ala [Biktarvy 50-200-25 mg Tablet] 1 tab PO DAILY Empagliflozin [Jardiance] 10 mg PO DAILY Fenofibrate Nanocrystallized [Fenofibrate] 48 mg PO DAILY oxyCODONE-APAP 10-325MG [Percocet 10-325 mg] 1 tab PO Q6HR PRN 3 Days #12 tab PRN Reason: Pain Bimatoprost [Lumigan 0.01% Ophth Soln] 1 drop BOTH EYES HS allopurinoL 100 mg PO DAILY Escitalopram [Lexapro] 10 mg PO DAILY 30 Days #30 tab Thiamine [Vitamin B-1] 100 mg PO DAILY 30 Days #30 tab Lidocaine 5% Patch [Lidoderm 5% Patch] 1 patch TOPICAL DAILY DULoxetine HCL [Cymbalta] 30 mg PO DAILY #60 cap Discharge Medication List Bictegrav/Emtricit/Tenofov Ala [Biktarvy 50-200-25 mg Tablet] 1 tab PO DAILY 09/07/21 [History] Darunavir/Cobicistat [Prezcobix 800 mg-150 mg Tablet] 1 tab PO DAILY 09/07/22 [History] Albuterol Sulfate [Albuterol Sulfate Hfa] 2 puff INHALATION RT-QID PRN 12/27/23 [History] Empagliflozin [Jardiance] 10 mg PO DAILY 12/27/23 [History] Sacubitril/Valsartan [Entresto 24 mg-26 mg Tablet] 1 tab PO BID 12/27/23 [History] Fenofibrate Nanocrystallized [Fenofibrate] 48 mg PO DAILY 03/17/24 [History] Levothyroxine Sodium 200 mcg PO DAILY 03/17/24 [History] oxyCODONE-APAP 10-325MG [Percocet 10-325 mg] 1 tab PO Q6HR PRN 3 Days #12 tab 03/20/24 [Rx] Apixaban [Eliquis] 2.5 mg PO BID 04/03/24 [History] Bimatoprost [Lumigan 0.01% Ophth Soln] 1 drop BOTH EYES HS 04/03/24 [History] Bumetanide [BUMEX] 1 mg PO BID PRN 04/03/24 [History] allopurinoL 100 mg PO DAILY 04/03/24 [History] Escitalopram [Lexapro] 10 mg PO DAILY 30 Days #30 tab 04/28/24 [Rx] Thiamine [Vitamin B-1] 100 mg PO DAILY 30 Days #30 tab 04/28/24 [Rx] Amiodarone [Cordarone] 200 mg PO BID 05/23/24 [History] Cholecalciferol [Vitamin D3 (25 Mcg = 1000 Iu)] 25 mcg PO DAILY 05/23/24 [History] Lidocaine 5% Patch [Lidoderm 5% Patch] 1 patch TOPICAL DAILY 05/23/24 [History] Mirtazapine 7.5 mg PO HS 05/23/24 [History] Multivitamins, Thera [Multivitamin (formulary)] 1 tab PO DAILY 05/23/24 [History] Omeprazole [PriLOSEC] 40 mg PO DAILY 05/23/24 [History] Rosuvastatin [Crestor] 20 mg PO DAILY 05/23/24 [History] DULoxetine HCL [Cymbalta] 30 mg PO DAILY #60 cap 05/24/24 [Rx] Capsaicin Cream [Trixaicin Cream] 1 applic TOPICAL QID 05/31/24 [History] Metoprolol Succinate (ER) [Toprol XL] 100 mg PO DAILY 06/06/24 [History] Follow up Appointment(s)/Referral(s): Girma Malone MD [Primary Care Provider] - 1-2 days Discharge Disposition: LEFT AGAINST MEDICAL ADVICE
[2024-06-06] MEDS ORDERED: NITROGLYCERIN OINT 1 INCH/GM PACKET TOPICAL SCH (18:00)
[2024-06-06] MEDS ORDERED: MIRTAZAPINE 15 MG TAB PO SCH (21:00)
[2024-06-06] MEDS ORDERED: LATANOPROST 0.005% OPHTH DROPS 2.5 ML BTL BOTH EYES SCH (21:00)
[2024-06-06] MEDS ORDERED: AMIODARONE 200 MG TAB PO SCH (21:00)
[2024-06-06] MEDS ORDERED: SACUBITRIL/VALSARTAN 24 MG-26 MG TABLET PO SCH (21:00)
[2024-06-06] MEDS ORDERED: APIXABAN 2.5 MG TABLET PO SCH (21:00)
[2024-06-07] MEDS ORDERED: LEVOTHYROXINE 100 MCG TAB PO SCH (06:30)
[2024-06-07] MEDS ORDERED: PANTOPRAZOLE 40 MG TABLET PO SCH (07:30)
[2024-06-07] MEDS ORDERED: MULTIVITAMINS, THERA 1 EACH TAB PO SCH (09:00)
[2024-06-07] MEDS ORDERED: [UNRECOGNIZED DRUG - OTHER] PO SCH (09:00)
[2024-06-07] MEDS ORDERED: LIDOCAINE 4% PATCH TOPICAL SCH (09:00)
[2024-06-07] MEDS ORDERED: allopurinoL 100 MG TAB PO SCH (09:00)
[2024-06-07] MEDS ORDERED: DAPAGLIFLOZIN PROPANEDIOL 5 MG TABLET PO SCH (09:00)
[2024-06-07] MEDS ORDERED: ASPIRIN 81 MG PO SCH (09:00)
[2024-06-07] MEDS ORDERED: METOPROLOL SUCCINATE (ER) 100 MG TAB.ER.24H PO SCH (09:00)
[2024-06-07] MEDS ORDERED: ESCITALOPRAM 10 MG TAB PO SCH (09:00)
[2024-06-07] MEDS ORDERED: ASPIRIN 325 MG TAB PO SCH (09:00)
[2024-06-07] MEDS ORDERED: FENOFIBRATE 54 MG TAB PO SCH (09:00)
[2024-06-07] MEDS ORDERED: DULoxetine HCL 30 MG CAPSULE.DR PO SCH (09:00)
[2024-06-07] MEDS ORDERED: COBICISTAT PO SCH (09:00)
[2024-06-07] MEDS ORDERED: CHOLECALCIFEROL 25 MCG (1000 IU) TABLET PO SCH (09:00)
[2024-06-07] MEDS ORDERED: DARUNAVIR PO SCH (09:00)
[2024-06-07] MEDS ORDERED: NON FORMULARY DRUG (Bictegrav/Emtricit/Tenofov Ala [Biktarvy 50-200-25 Mg Tablet] 1 EACH T PO SCH (09:00)
[2024-06-07] MEDS ORDERED: ATORVASTATIN 40 MG TAB PO SCH (09:00)
[2024-06-07] MEDS ORDERED: THIAMINE 100 MG TAB PO SCH (09:00)
== END 2024-06-06 13:45 | disposition left against medical advice (07) ==
LOC: EC 09:38 → 6NMEDSUR 12:34
PROVIDERS: ADMIT Family Medicine; ATTEND Family Medicine
DX: R07.9 Chest pain, unspecified (principal); R00.2 Palpitations; I48.0 Paroxysmal atrial fibrillation; E87.0 Hyperosmolality and hypernatremia; E87.8 Other disorders of electrolyte and fluid balance, not elsewhere classified; I11.0 Hypertensive heart disease with heart failure; I50.22 Chronic systolic (congestive) heart failure; Y90.8 Blood alcohol level of 240 mg/100 ml or more; F10.129 Alcohol abuse with intoxication, unspecified; F17.200 Nicotine dependence, unspecified, uncomplicated; F32.A Depression, unspecified; F41.9 Anxiety disorder, unspecified; G89.4 Chronic pain syndrome; I25.10 Atherosclerotic heart disease of native coronary artery without angina pectoris; I71.00 Dissection of unspecified site of aorta; J45.909 Unspecified asthma, uncomplicated; M1A.9XX0 Chronic gout, unspecified, without tophus (tophi); M79.7 Fibromyalgia; K21.9 Gastro-esophageal reflux disease without esophagitis; N40.0 Benign prostatic hyperplasia without lower urinary tract symptoms; Z88.5 Allergy status to narcotic agent; Z88.1 Allergy status to other antibiotic agents; Z88.8 Allergy status to other drugs, medicaments and biological substances; Z79.899 Other long term (current) drug therapy; Z53.29 Procedure and treatment not carried out because of patient's decision for other reasons; Z21 Asymptomatic human immunodeficiency virus [HIV] infection status; Z79.01 Long term (current) use of anticoagulants; Z79.890 Hormone replacement therapy; Z86.79 Personal history of other diseases of the circulatory system
CPT/HCPCS: 99285; 36415; 93005; 83880; 80053; 82150; 83690; 83735; 84484; 85025; 85610; 85730; 80320; 71046; G0378

== ENCOUNTER 2024-06-07 23:49 | Inpatient (IN) | payer MEDICARE, OTHER ==
[2024-06-08 00:48] LABS: Anisocytosis Slight; Basophils % (A) 0 %; Eosinophils # (A) 0.1 k/uL (0-0.7); Eosinophils % (A) 2 %; HCT 35.2 % (39.0-53.0); HGB 11.6 gm/dL (13.0-17.5); Lymphocytes # (A) 0.9 k/uL (1.0-4.8); Lymphocytes % (A) 33 %; MCH 31.6 pg (25.0-35.0); MCHC 32.9 g/dL (31.0-37.0); Mean Platelet Volume 8.9; Monocytes # (A) 0.2 k/uL (0-1.0); Monocytes % (A) 6 %; Neutrophils # (A) 1.4 k/uL (1.3-7.7); Neutrophils % (A) 54 %; Platelet Count 115 k/uL (150-450); RBC 3.67 m/uL (4.30-5.90); RDW 16.3 % (11.5-15.5); WBC 2.7 k/uL (3.8-10.6)
[2024-06-08] MEDS: SODIUM CHLORIDE 0.9% 500 ML 500 ML IV STA (00:56)
[2024-06-08] MEDS: SODIUM CHLORIDE 0.9% 1,000 ML IV STA (00:56)
[2024-06-08] MEDS: LORazepam 2 MG/ML INJ IV STA ×3 (00:56→06:01)
[2024-06-08 01:37] LABS: ALT 23 U/L (4-49); AST 47 U/L (17-59); African American GFR (CKD) >90 (>60 ml/min/1.73 sqM); Albumin 3.8 g/dL (3.5-5.0); Alcohol 35 mg/dL; Alkaline Phosphatase 118 U/L (38-126); Anion Gap 10 mmol/L; Blood Urea Nitrogen 15 mg/dL (9-20); Carbon Dioxide 24 mmol/L (22-30); Chloride 114 mmol/L (98-107); Glucose 142 mg/dL (74-99); Magnesium 1.6 mg/dL (1.6-2.3); Non-African American GFR(CKD) >90 (>60 ml/min/1.73 sqM); Potassium 3.9 mmol/L (3.5-5.1); Sodium 148 mmol/L (137-145); Total Bilirubin 0.4 mg/dL (0.2-1.3); Total Protein 7.1 g/dL (6.3-8.2)
[2024-06-08] MEDS: IPRATROPIUM-ALBUTEROL 3 ML NEB INHALATION STA (02:38)
--- NOTE | 2024-06-08 05:40 | ED ---
Alcohol HPI - General Chief Complaint: Alcohol Stated Complaint: Withdrawals, NVD Time Seen by Provider: 06/08/24 00:11 Source: patient, EMS Mode of arrival: EMS - History of Present Illness Initial Comments: Patient is a 63-year-old male with history of HIV and aortic dissection, presenting with complaint that he feels he is withdrawing from alcohol. The patient feels anxious, shaky, and notes that his heart seems to be racing at times. Patient's last drink was hours ago. He drank about 1/5 of liquor because he was feeling depressed that his thoracic surgeon stated he was not stable enough to have repair of his dissection. Patient currently denies chest pain. Had been admitted yesterday and then had left AGAINST MEDICAL ADVICE. The patient returns now as he is concerned that withdrawal may cause his blood pressure to rise and stressed the dissection. MD Complaint: alcohol withdrawal Time Since Last Drink: 8 -: hour(s) Previous Visits for Alcohol Intoxication?: Yes Recent Trauma: No Associated Symptoms: nausea, tremors Treatments Prior to Arrival: none Chronic Alcohol Use: Yes - Related Data Home Medications Medication Instructions Recorded Confirmed Bictegrav/Emtricit/Tenofov Ala 1 tab PO DAILY 09/07/21 06/08/24 [Biktarvy 50-200-25 mg Tablet] Darunavir/Cobicistat [Prezcobix 1 tab PO DAILY 09/07/22 06/08/24 800 mg-150 mg Tablet] Albuterol Sulfate [Albuterol 2 puff INHALATION RT-QID PRN 12/27/23 06/08/24 Sulfate Hfa] Empagliflozin [Jardiance] 10 mg PO DAILY 12/27/23 06/08/24 Sacubitril/Valsartan [Entresto 24 1 tab PO BID 12/27/23 06/08/24 mg-26 mg Tablet] Fenofibrate Nanocrystallized 48 mg PO DAILY 03/17/24 06/08/24 [Fenofibrate] Levothyroxine Sodium 200 mcg PO DAILY 03/17/24 06/08/24 Apixaban [Eliquis] 2.5 mg PO BID 04/03/24 06/08/24 Bimatoprost [Lumigan 0.01% Ophth 1 drop BOTH EYES HS 04/03/24 06/08/24 Soln] allopurinoL 100 mg PO DAILY 04/03/24 06/08/24 Amiodarone [Cordarone] 200 mg PO BID 05/23/24 06/08/24 Cholecalciferol [Vitamin D3 (25 25 mcg PO DAILY 05/23/24 06/08/24 Mcg = 1000 Iu)] Lidocaine 5% Patch [Lidoderm 5% 1 patch TOPICAL DAILY 05/23/24 06/08/24 Patch] Mirtazapine 7.5 mg PO HS 05/23/24 06/08/24 Multivitamins, Thera [Multivitamin 1 tab PO DAILY 05/23/24 06/08/24 (formulary)] Omeprazole [PriLOSEC] 40 mg PO DAILY 05/23/24 06/08/24 Rosuvastatin [Crestor] 20 mg PO DAILY 05/23/24 06/08/24 Capsaicin Cream [Trixaicin Cream] 1 applic TOPICAL QID 05/31/24 06/08/24 Metoprolol Succinate (ER) [Toprol 100 mg PO DAILY 06/06/24 06/08/24 XL] Previous Rx's Medication Instructions Recorded oxyCODONE-APAP 10-325MG [Percocet 1 tab PO Q6HR PRN 3 Days #12 tab 03/20/24 10-325 mg] Thiamine [Vitamin B-1] 100 mg PO DAILY 30 Days #30 tab 04/28/24 DULoxetine HCL [Cymbalta] 30 mg PO DAILY #60 cap 05/24/24 Bumetanide [BUMEX] 1 mg PO BID #0 06/11/24 Allergies Allergy/AdvReac Type Severity Reaction Status Date / Time abacavir [From Ziagen] Allergy Anaphylaxis Verified 06/14/24 23:35 efavirenz [From Sustiva] Allergy Anaphylaxis Verified 06/14/24 23:35 levofloxacin Allergy Itching Verified 06/14/24 23:35 hydrocodone AdvReac Rapid Verified 06/14/24 23:35 [From [facility]ys[facility] ER] Heart Rate morphine AdvReac Itching Verified 06/14/24 23:35 sulfamethoxazole AdvReac HIGH Verified 06/14/24 23:35 [From Bactrim] CREATININE LEVEL trimethoprim [From Bactrim] AdvReac HIGH Verified 06/14/24 23:35 CREATININE Review of Systems ROS Statement: Those systems with pertinent positive or pertinent negative responses have been documented in the HPI. ROS Other: All systems not noted in ROS Statement are negative. Constitutional: Denies: fever, chills, weakness Eyes: Denies: vision change Respiratory: Denies: cough, dyspnea, wheezes Cardiovascular: Reports: palpitations. Denies: chest pain, orthopnea, edema, syncope Gastrointestinal: Reports: nausea. Denies: abdominal pain, vomiting, diarrhea Genitourinary: Denies: dysuria, hematuria Musculoskeletal: Denies: back pain Skin: Denies: rash Neurological: Denies: headache, weakness, numbness Psychiatric: Reports: anxiety, depression. Denies: homicidal thoughts, suicidal thoughts Past Medical History Past Medical History: Atrial Fibrillation, Asthma, Heart Failure, Fibromyalgia, GERD/Reflux, Hypertension, Prostate Disorder Additional Past Medical History / Comment(s): Mitral valve disease w/ MV repair at [facility] 2000, HIV positive, past HTN and recently low blood pressures, BPH, R ankle gout, chronic nausea, bilateral glaucoma, chronic pain syndrome, chronic low back and bilateral hip pain and occasional cervical pain, DDD, lumbar stenosis/spondylosis, abdominal hernia, previous history of drug overdose. PTSD History of Any Multi-Drug Resistant Organisms: None Reported Past Surgical History: Heart Catheterization, Hernia Repair Additional Past Surgical History / Comment(s): Mitral valve repair at [facility] (2000), Type A aortic disection repordedly treated conservatively by [facility], R inguinal hernia x2, L inguinal hernia, epidural injections to back, hip injections, RFAs, spinal cord stimulator trial-removed, Past Anesthesia/Blood Transfusion Reactions: No Reported Reaction Past Psychological History: Anxiety, Depression, PTSD Smoking Status: Former smoker Past Alcohol Use History: Abuse Past Drug Use History: Prescription Drug Abuse - Past Family History Father History Unknown: Yes Additional Family Medical History / Comment(s): Father was injured at work and of complication during his hospitalization. Mother Additional Family Medical History / Comment(s): Mother is from alcoholism. Brother(s) Additional Family Medical History / Comment(s): alcohol and HF General Exam General appearance: alert, anxious Head exam: Present: atraumatic, normocephalic Eye exam: Present: normal appearance. Absent: scleral icterus, conjunctival injection ENT exam: Present: mucous membranes dry Neck exam: Present: normal inspection Respiratory exam: Present: normal lung sounds bilaterally. Absent: respiratory distress, wheezes, rales, rhonchi, stridor, accessory muscle use Cardiovascular Exam: Present: regular rate, normal rhythm, normal heart sounds. Absent: systolic murmur, diastolic murmur, rubs, gallop GI/Abdominal exam: Present: soft. Absent: distended, tenderness, guarding, rebound, rigid, mass Extremities exam: Present: normal inspection, normal capillary refill. Absent: pedal edema, calf tenderness Back exam: Present: normal inspection. Absent: CVA tenderness (R), CVA tenderness (L) Neurological exam: Present: alert Skin exam: Present: warm, dry, intact, normal color. Absent: rash Course Vital Signs 06/07/24 06/08/24 06/08/24 23:53 00:57 01:40 Temperature 98.2 F Pulse Rate 96 96 Respiratory 18 20 Rate Blood Pressure 147/93 171/90 O2 Sat by Pulse 95 95 93 L Oximetry 06/08/24 06/08/24 06/08/24 02:12 02:40 02:45 Temperature Pulse Rate 96 96 99 Respiratory 18 Rate Blood Pressure O2 Sat by Pulse 97 Oximetry 06/08/24 06/08/24 06/08/24 03:00 05:16 05:57 Temperature 98.8 F Pulse Rate 89 80 91 Respiratory 16 22 22 Rate Blood Pressure 155/83 181/99 172/92 O2 Sat by Pulse 95 95 95 Oximetry 06/08/24 06/08/24 06/08/24 06:01 06:03 06:25 Temperature Pulse Rate 88 89 76 Respiratory 22 20 16 Rate Blood Pressure 169/92 171/103 152/82 O2 Sat by Pulse 99 98 97 Oximetry 06/08/24 06/08/24 06/08/24 06:50 07:41 08:00 Temperature 98.5 F Pulse Rate 81 84 81 Respiratory 18 18 18 Rate Blood Pressure 163/85 162/81 161/90 O2 Sat by Pulse 97 97 99 Oximetry 06/08/24 06/08/24 06/08/24 08:45 09:38 12:00 Temperature Pulse Rate 79 74 76 Respiratory 18 18 17 Rate Blood Pressure 146/79 140/77 O2 Sat by Pulse 98 97 97 Oximetry 06/08/24 06/08/24 15:48 19:51 Temperature Pulse Rate 68 77 Respiratory 17 18 Rate Blood Pressure 147/83 147/65 O2 Sat by Pulse 97 95 Oximetry Medical Decision Making - Medical Decision Making The patient had chest x-ray which I interpreted as negative for acute infiltrate, pneumothorax, congestive heart failure Was pt. sent in by a medical professional or institution (BONNIE Rai, SCIENTIFIC INFORMATICS LEADER, urgent care, hospital, or penitentiary...) When possible be specific @ -[No] Did you speak to anyone other than the patient for history (EMS, parent, family, police, friend...)? What history was obtained from this source @ -[No] Did you review nursing and triage notes (agree or disagree)? Why? @ -[I reviewed and agree with nursing and triage notes] Were old charts reviewed (outside hosp., previous admission, EMS record, old EKG, old radiological studies, urgent care reports/EKG's, penitentiary records)? Report findings @ -[Yes, old charts were reviewed] Differential Diagnosis (chest pain, altered mental status, abdominal pain women, abdominal pain men, vaginal bleeding, weakness, fever, dyspnea, syncope, headache, dizziness, GI bleed, back pain, seizure, CVA, palpatations, mental health, musculoskeletal)? @ -[Differential Mental Health Depression, anxiety, bipolar, psychosis, schizophrenia, borderline personality, situational depression, adjustment disorder, behavioral disorder, brain tumor, malingering, substance abuse, encephalopathy, medication reaction, dementia, hypothyroidism, degenerative neurologic disorder, lupus.... This is not meant to be all-inclusive list EKG interpreted by me (3pts min.). @ -[I interpreted as above] X-rays interpreted by me (1pt min.). @ -[I interpreted as above CT interpreted by me (1pt min.). @ -[None done] U/S interpreted by me (1pt. min.). @ -[None done] What testing was considered but not performed or refused? (CT, X-rays, U/S, labs)? Why? @ -[None] What meds were considered but not given or refused? Why? @ -[None] Did you discuss the management of the patient with other professionals (pro fessionals i.e. BONNIE Rai, SCIENTIFIC INFORMATICS LEADER, lab, RT, psych nurse, manager social work, softball umpire, teacher, admissions officer, continuous pillowcase cutter)? Give summary @ -[Case discussed with admitting physician and treatment recommendations incorporated Was smoking cessation discussed for >3mins.? @ -[No] Was critical care preformed (if so, how long)? @ -[No] Were there social determinants of health that impacted care today? How? (Ho melessness, low income, unemployed, alcoholism, drug addiction, transportation, low edu. Level, literacy, decrease access to med. care, half-way, rehab)? @ -[Alcohol abuse Was there de-escalation of care discussed even if they declined (Discuss DNR or withdrawal of care, Hospice)? DNR status @ -[No] What co-morbidities impacted this encounter? (DM, HTN, Smoking, COPD, CAD, Cancer, CVA, ARF, Chemo, Hep., AIDS, mental health diagnosis, sleep apnea, morbid obesity)? @ -[Chronic aortic dissection, HIV, alcohol abuse Was patient admitted / discharged? Hospital course, mention meds given and route, prescriptions, significant lab abnormalities, going to OR and other pertinent info. @ -Patient is 63-year-old man here to have evaluation for suspicion that he is beginning to develop alcohol withdrawal symptoms. The patient does appear to be at risk of developing severe withdrawal. Given the patient's other comorbidities, will admit to ensure that he does not develop marked hypertension or tachycardia which would further stress his chronic dissection. Patient started on benzodiazepine therapy Undiagnosed new problem with uncertain prognosis? @ -[No] Drug Therapy requiring intensive monitoring for toxicity (Heparin, Nitro, Insulin, Cardizem)? @ -[No] Were any procedures done? @ -[No] Diagnosis/symptom? @ -[Acute alcohol withdrawal Acute, or Chronic, or Acute on Chronic? @ -[Acute Uncomplicated (without systemic symptoms) or Complicated (systemic symptoms)? @ -[ Side effects of treatment? @ -[No] Exacerbation, Progression, or Severe Exacerbation? @ -[No] Poses a threat to life or bodily function? How? (Chest pain, USA, NC, pneumonia, PE, COPD, DKA, ARF, appy, cholecystitis, CVA, Diverticulitis, Homicidal, Suicidal, threat to staff... and all critical care pts) @ -[Yes, see above - Lab Data Result diagrams: 06/11/24 04:40 06/11/24 04:40 Lab Results 06/08/24 06/08/24 06/08/24 Range/Units 00:32 00:32 00:32 WBC 2.7 L (3.8-10.6) k/uL RBC 3.67 L (4.30-5.90) m/uL Hgb 11.6 L (13.0-17.5) gm/dL Hct 35.2 L (39.0-53.0) % MCV 96.0 (80.0-100.0) fL MCH 31.6 (25.0-35.0) pg MCHC 32.9 (31.0-37.0) g/dL RDW 16.3 H (11.5-15.5) % Plt Count 115 L (150-450) k/uL MPV 8.9 Neutrophils % 54 % Lymphocytes % 33 % Monocytes % 6 % Eosinophils % 2 % Basophils % 0 % Neutrophils # 1.4 (1.3-7.7) k/uL Lymphocytes # 0.9 L (1.0-4.8) k/uL Monocytes # 0.2 (0-1.0) k/uL Eosinophils # 0.1 (0-0.7) k/uL Basophils # 0.0 (0-0.2) k/uL Anisocytosis Slight Sodium 148 H (137-145) mmol/L Potassium 3.9 (3.5-5.1) mmol/L Chloride 114 H (98-107) mmol/L Carbon Dioxide 24 (22-30) mmol/L Anion Gap 10 mmol/L BUN 15 (9-20) mg/dL Creatinine 0.79 (0.66-1.25) mg/dL Est GFR (CKD-EPI)AfAm >90 (>60 ml/min/1.73 sqM) Est GFR (CKD-EPI)NonAf >90 (>60 ml/min/1.73 sqM) Glucose 142 H (74-99) mg/dL Calcium 8.0 L (8.4-10.2) mg/dL Magnesium 1.6 (1.6-2.3) mg/dL Total Bilirubin 0.4 (0.2-1.3) mg/dL AST 47 (17-59) U/L ALT 23 (4-49) U/L Alkaline Phosphatase 118 (38-126) U/L Troponin I 0.015 (0.000-0.034) ng/mL NT-Pro-B Natriuret Pep pg/mL Total Protein 7.1 (6.3-8.2) g/dL Albumin 3.8 (3.5-5.0) g/dL Serum Alcohol 35 mg/dL 06/08/24 Range/Units 00:32 WBC (3.8-10.6) k/uL RBC (4.30-5.90) m/uL Hgb (13.0-17.5) gm/dL Hct (39.0-53.0) % MCV (80.0-100.0) fL MCH (25.0-35.0) pg MCHC (31.0-37.0) g/dL RDW (11.5-15.5) % Plt Count (150-450) k/uL MPV Neutrophils % % Lymphocytes % % Monocytes % % Eosinophils % % Basophils % % Neutrophils # (1.3-7.7) k/uL Lymphocytes # (1.0-4.8) k/uL Monocytes # (0-1.0) k/uL Eosinophils # (0-0.7) k/uL Basophils # (0-0.2) k/uL Anisocytosis Sodium (137-145) mmol/L Potassium (3.5-5.1) mmol/L Chloride (98-107) mmol/L Carbon Dioxide (22-30) mmol/L Anion Gap mmol/L BUN (9-20) mg/dL Creatinine (0.66-1.25) mg/dL Est GFR (CKD-EPI)AfAm (>60 ml/min/1.73 sqM) Est GFR (CKD-EPI)NonAf (>60 ml/min/1.73 sqM) Glucose (74-99) mg/dL Calcium (8.4-10.2) mg/dL Magnesium (1.6-2.3) mg/dL Total Bilirubin (0.2-1.3) mg/dL AST (17-59) U/L ALT (4-49) U/L Alkaline Phosphatase (38-126) U/L Troponin I (0.000-0.034) ng/mL NT-Pro-B Natriuret Pep 4020 pg/mL Total Protein (6.3-8.2) g/dL Albumin (3.5-5.0) g/dL Serum Alcohol mg/dL Disposition Clinical Impression: Alcohol withdrawal, Adjustment disorder Disposition: ADMITTED IP TO THIS HOSP Condition: Stable Is patient prescribed a controlled substance at d/c from ED?: No
[2024-06-08] MEDS: NITROGLYCERIN OINT 1 INCH/GM PACKET TOPICAL STA (06:00)
[2024-06-08] MEDS: LABETALOL 5 MG/ML VIAL MDV IVP STA (06:00)
--- NOTE | 2024-06-08 06:17 | XR ---
EXAM: XR Chest, 1 View CLINICAL HISTORY: ITS.REASON XR Reason: dyspnea TECHNIQUE: Frontal view of the chest. COMPARISON: X-ray dated 05/31/2024 FINDINGS: Lungs: Increased lung markings are seen throughout the bilateral lungs. No consolidation. Pleural space: Blunting of the left costophrenic angle. No pneumothorax. Heart: Mild enlargement of the cardiac silhouette. Mediastinum: Unremarkable. Normal mediastinal contour. Bones/joints: Degenerative changes is seen within the spine and shoulders. Sternotomy wires are in place. No acute fracture. Vasculature: Ectatic course of the aorta. IMPRESSION: 1. Small left-sided pleural effusion with adjacent atelectasis and or pneumonia not excluded. 2. Nonspecific increased lung markings seen bilaterally, underlying pulmonary edema is not excluded. If further characterization is warranted recommend CT scan.
[2024-06-08] MEDS ORDERED: NALOXONE 0.4 MG/ML 1 ML VIAL IV PRN (06:41)
[2024-06-08] MEDS ORDERED: LORazepam 2 MG/ML INJ IV PRN (06:43)
[2024-06-08] MEDS ORDERED: BUMETANIDE 1 MG TAB PO PRN (06:43)
[2024-06-08] MEDS: SODIUM CHLORIDE 0.9% 1,000 ML IV SCH (06:49)
[2024-06-08] MEDS: LORazepam 2 MG/ML INJ IV PRN (08:10)
[2024-06-08] MEDS: DAPAGLIFLOZIN PROPANEDIOL 5 MG TABLET PO SCH (08:11)
[2024-06-08] MEDS: METOPROLOL SUCCINATE (ER) 100 MG TAB.ER.24H PO SCH (08:11)
[2024-06-08] MEDS: ESCITALOPRAM 10 MG TAB PO SCH (08:11)
[2024-06-08] MEDS: MULTIVITAMINS, THERA 1 EACH TAB PO SCH (08:11)
[2024-06-08] MEDS: SACUBITRIL/VALSARTAN 24 MG-26 MG TABLET PO SCH (08:12)
[2024-06-08] MEDS: oxyCODONE-APAP 10-325MG 1 EACH TAB PO PRN (08:12)
[2024-06-08] MEDS: AMIODARONE 200 MG TAB PO SCH (08:12)
[2024-06-08] MEDS: allopurinoL 100 MG TAB PO SCH (08:12)
[2024-06-08] MEDS: ATORVASTATIN 40 MG TAB PO SCH (08:13)
[2024-06-08] MEDS: PANTOPRAZOLE 40 MG TABLET PO SCH (08:13)
[2024-06-08] MEDS: APIXABAN 2.5 MG TABLET PO SCH (08:13)
[2024-06-08] MEDS: COBICISTAT PO SCH (08:15)
[2024-06-08] MEDS: DARUNAVIR PO SCH (08:15)
[2024-06-08] MEDS: [UNRECOGNIZED DRUG - OTHER] PO SCH (08:15)
[2024-06-08] MEDS: NON FORMULARY DRUG (Bictegrav/Emtricit/Tenofov Ala [Biktarvy 50-200-25 Mg Tablet] 1 EACH T PO SCH (08:15)
[2024-06-08] MEDS: LEVOTHYROXINE 100 MCG TAB PO SCH (08:27)
[2024-06-08] MEDS: LIDOCAINE 4% PATCH TOPICAL SCH (08:27)
[2024-06-08] MEDS: FENOFIBRATE 54 MG TAB PO SCH (08:43)
[2024-06-08] MEDS ORDERED: LORazepam 0.5 MG TAB PO PRN (09:00)
[2024-06-08] MEDS: MAGNESIUM SULFATE-D5W PMX 1 GM in DEXTROSE/WATER 1 100ML.BAG IVPB SCH (09:42)
[2024-06-08] MEDS: FOLIC ACID 1 MG TAB PO SCH (09:42)
--- NOTE | 2024-06-08 15:06 | P.HPIM ---
History of Present Illness H&P Date: 06/08/24 History of Presenting Illness: Patient is a 63-year-old male with a past medical history of atrial fibrillation on anticoagulation with Eliquis, chronic systolic heart failure with EF of 35 to 40%, stable type A aortic dissection, EtOH abuse, and HIV. He presented to the emergency department with a chief complaint of alcohol withdraw. Patient reports drinking a fifth or more of liquor daily and reports that this is increased because he has been very depressed after being told by cardiothoracic surgeon from [facility] that he is not medically stable to undergo bypass surgery and he has been very anxious and depressed since and drinking more than normal. Patient reports last drink being yesterday or bed and reports this morning waking up with severe withdrawal symptoms. Patient reports feeling extremely shaky, anxious, and nauseous. Patient reports the more shaky becomes more anxious he becomes because he knows that withdrawal is going to increase his blood pressure which could worsen his aortic dissection. Patient currently denies having any headache, lightheadedness, dizziness, chest pain, palpitations, shortness of breath, or experiencing any numbness/tingling/weakness/swelling in his extremities. Upon arrival to our facility, patient underwent evaluation in the emergency department. Vital signs upon arrival show blood pressure 147/93, heart rate 96, respiratory rate 18, temp 98.2 F, and SpO2 of 95% on room air. Chest x-ray completed showing small left-sided pleural effusion with adjacent atelectasis and nonspecific increased lung markings concerning for mild pulmonary edema. Labs completed and reviewed. CBC showing pancytopenia with WBC count of 2.7, hemoglobin 11.6, platelet count of 115. BMP showing mild hyponatremia with sodium of 148, and chloride of 114. Blood glucose 142. Magnesium was slightly low at 1.6. Liver profile unremarkable. Troponin was 0.015. proBNP was 4020. Serum alcohol level was 35. Patient admitted under our services with consultations to psychiatry and cardiology. Review of systems: Pertinent positives and negatives as discussed in HPI, a complete review of systems was performed and all other systems are negative. Physical exam: Vital signs reviewed and stable. General: Nontoxic, no distress and appears stated age. Derm: Skin warm and dry, normal coloration for ethnicity. Head: Atraumatic, normocephalic and symmetric. Eyes: EOM's intact, no lid lag, and anicteric sclera Mouth: no lip lesions, mucus membranes moist Cardiovascular: regular rate and rhythm with normal S1S2, systolic murmur, positive posterior tibial pulses bilaterally, and cap refill < 2 seconds. Lungs: Respirations even, regular, and unlabored on 2L O2 via nasal cannula. Lungs with basilar crackles. No wheezing, rhonchi, rales, or accessory muscle usage. Abdominal: soft, nontender to palpation, no guarding, no appreciable organomegaly Ext: ROM intact. No gross muscle atrophy, 1+ BLE edema, no contractures Neuro: Speech clear, face symmetrical and CN II-XII grossly intact with no noted focal neuro deficits Psych: Alert and oriented to person, place, time, and situation. Appropriate and pleasant affect. Assessment and Plan of Care: Alcohol withdraw in active alcoholic -Order placed for monitoring of CIWA scores and patient to be medicated with Ativan 0.5 mg every 4 hours as needed for CIWA score of 4-5, Ativan 1 mg every 4 hours for CIWA score of 6-7, Ativan 2 mg every 3 hours CIWA score of 8-9, and Ativan 2 mg every 2 hours forr CIWA score of 10 or greater. -Continuous IV hydration. -Thiamine 100 mg daily, and Multivitamin daily, and Folate 1 mg daily -Seizure, fall, aspiration, and elopement precautions in place. -Continued close monitoring of electrolytes and replace as needed. -Telemetry monitoring. Acute exacerbation of Chronic systolic heart failure Paroxysmal atrial fibrillation CAD Type A aortic dissection -Patient denies experiencing cardiac complaints at this time including chest pain, palpitations, or shortness of breath. -Troponin 0.015 which appears to be at patient's baseline. proBNP is 4020 which is increased from previous proBNP drawn on 06/06/2024 resulting at 912. -Patient placed on continuous telemetry monitoring and order placed for EKG. -Will administer a one-time dose of Lasix 40 mg IVP as patient currently free from any complaints and resume home Bumex 1 mg twice daily. -Cardiology consulted for evaluation as patient was here 2 days prior with chest pain but left AMA and now has increased proBNP. Patient does report that he has not been taking his "water pill" at home. -Patient to continue cardiac medication regimen with rosuvastatin 20 mg daily, Entresto 24-26 mg tablet twice daily, Eliquis 2.5 mg twice daily, amiodarone 200 mg twice daily, Bumex 1 mg twice daily, metoprolol succinate 100 mg daily, Jardiance 10 mg daily, and fenofibrate 48 mg daily. Depression and anxiety -Patient reports experiencing severe depression but denies having any suicidal ideations. He reports he is depressed because he wants to live and does not want to . Patient requesting to be evaluated by psychiatrist. -Order placed for consult to psychiatry. -Continue Cymbalta 30 mg daily-and Lexapro 10 mg daily. HIV -Continue Biktarvy 500 200 25 mg daily as Prezcobix 800-150 mg daily.. Data and imaging reviewed: As stated above in HPI CODE STATUS: Full code DVT prophylaxis: Eliquis Anticipated discharge date: Likely 24 to [address]: Home Patient was seen independently by Nurse Practitioner. This document was prepared using Telepathy dictation software. Please allow for errors in grinder operator external tool while rare they do occur. Ismael Mireles NP rendered care for this patient independently, reviewed the findings and plan as documented in the note above and agree with plan. I did not physically speak with or examine the patient on this date. Past Medical History Past Medical History: Atrial Fibrillation, Asthma, Heart Failure, Fibromyalgia, GERD/Reflux, Hypertension, Prostate Disorder Additional Past Medical History / Comment(s): Mitral valve disease w/ MV repair at [facility] 2000, HIV positive, past HTN and recently low blood pressures, BPH, R ankle gout, chronic nausea, bilateral glaucoma, chronic pain syndrome, chronic low back and bilateral hip pain and occasional cervical pain, DDD, lumbar stenosis/spondylosis, abdominal hernia, previous history of drug overdose. PTSD History of Any Multi-Drug Resistant Organisms: None Reported Past Surgical History: Heart Catheterization, Hernia Repair Additional Past Surgical History / Comment(s): Mitral valve repair at [facility] (2000), Type A aortic disection repordedly treated conservatively by [facility], R inguinal hernia x2, L inguinal hernia, epidural injections to back, hip injections, RFAs, spinal cord stimulator trial-removed, Past Anesthesia/Blood Transfusion Reactions: No Reported Reaction Past Psychological History: Anxiety, Depression, PTSD Smoking Status: Former smoker Past Alcohol Use History: Abuse Past Drug Use History: Prescription Drug Abuse - Past Family History Father History Unknown: Yes Additional Family Medical History / Comment(s): Father was injured at work and of complication during his hospitalization. Mother Additional Family Medical History / Comment(s): Mother is from alcoholism. Brother(s) Additional Family Medical History / Comment(s): alcohol and HF Medications and Allergies Home Medications Medication Instructions Recorded Confirmed Type Bictegrav/Emtricit/Tenofov Ala 1 tab PO DAILY 09/07/21 06/08/24 History [Biktarvy 50-200-25 mg Tablet] Darunavir/Cobicistat [Prezcobix 1 tab PO DAILY 09/07/22 06/08/24 History 800 mg-150 mg Tablet] Albuterol Sulfate [Albuterol 2 puff INHALATION RT-QID PRN 12/27/23 06/08/24 History Sulfate Hfa] Empagliflozin [Jardiance] 10 mg PO DAILY 12/27/23 06/08/24 History Sacubitril/Valsartan [Entresto 24 1 tab PO BID 12/27/23 06/08/24 History mg-26 mg Tablet] Fenofibrate Nanocrystallized 48 mg PO DAILY 03/17/24 06/08/24 History [Fenofibrate] Levothyroxine Sodium 200 mcg PO DAILY 03/17/24 06/08/24 History oxyCODONE-APAP 10-325MG [Percocet 1 tab PO Q6HR PRN 3 Days #12 tab 03/20/24 06/08/24 Rx 10-325 mg] Apixaban [Eliquis] 2.5 mg PO BID 04/03/24 06/08/24 History Bimatoprost [Lumigan 0.01% Ophth 1 drop BOTH EYES HS 04/03/24 06/08/24 History Soln] Bumetanide [BUMEX] 1 mg PO BID PRN 04/03/24 06/08/24 History allopurinoL 100 mg PO DAILY 04/03/24 06/08/24 History Escitalopram [Lexapro] 10 mg PO DAILY 30 Days #30 tab 04/28/24 06/08/24 Rx Thiamine [Vitamin B-1] 100 mg PO DAILY 30 Days #30 tab 04/28/24 06/08/24 Rx Amiodarone [Cordarone] 200 mg PO BID 05/23/24 06/08/24 History Cholecalciferol [Vitamin D3 (25 25 mcg PO DAILY 05/23/24 06/08/24 History Mcg = 1000 Iu)] Lidocaine 5% Patch [Lidoderm 5% 1 patch TOPICAL DAILY 05/23/24 06/08/24 History Patch] Mirtazapine 7.5 mg PO HS 05/23/24 06/08/24 History Multivitamins, Thera [Multivitamin 1 tab PO DAILY 05/23/24 06/08/24 History (formulary)] Omeprazole [PriLOSEC] 40 mg PO DAILY 05/23/24 06/08/24 History Rosuvastatin [Crestor] 20 mg PO DAILY 05/23/24 06/08/24 History DULoxetine HCL [Cymbalta] 30 mg PO DAILY #60 cap 05/24/24 06/08/24 Rx Capsaicin Cream [Trixaicin Cream] 1 applic TOPICAL QID 05/31/24 06/08/24 History Metoprolol Succinate (ER) [Toprol 100 mg PO DAILY 06/06/24 06/08/24 History XL] Allergies Allergy/AdvReac Type Severity Reaction Status Date / Time abacavir [From Ziagen] Allergy Anaphylaxis Verified 06/08/24 11:02 efavirenz [From Sustiva] Allergy Anaphylaxis Verified 06/08/24 11:02 levofloxacin Allergy Itching Verified 06/08/24 11:02 hydrocodone AdvReac Rapid Verified 06/08/24 11:02 [From Hysingla ER] Heart Rate morphine AdvReac Itching Verified 06/08/24 11:02 sulfamethoxazole AdvReac HIGH Verified 06/08/24 11:02 [From Bactrim] CREATININE LEVEL trimethoprim [From Bactrim] AdvReac HIGH Verified 06/08/24 11:02 CREATININE Physical Exam Vitals: Vital Signs Temp Pulse Resp BP Pulse Ox 06/08/24 08:45 79 18 98 06/08/24 08:00 81 118 H 161/90 99 06/08/24 07:41 98.5 F 84 18 162/81 97 06/08/24 06:50 81 18 163/85 97 06/08/24 06:25 76 16 152/82 97 06/08/24 06:03 89 20 171/103 98 06/08/24 06:01 88 22 169/92 99 06/08/24 05:57 91 22 172/92 95 06/08/24 05:16 98.8 F 80 22 181/99 95 06/08/24 03:00 89 16 155/83 95 06/08/24 02:45 99 06/08/24 02:40 96 06/08/24 02:12 96 18 97 06/08/24 01:40 93 L 06/08/24 00:57 96 20 171/90 95 06/07/24 23:53 98.2 F 96 18 147/93 95 Intake and Output 06/07/24 06/08/24 06/08/24 22:59 06:59 14:59 Output Total 325 Balance -325 Output: Urine 325 Other: Weight 77.111 kg Results CBC & Chem 7: 06/08/24 00:32 06/08/24 00:32 Labs: Abnormal Lab Results - Last 24 Hours (Table) 06/08/24 06/08/24 Range/Units 00:32 00:32 WBC 2.7 L (3.8-10.6) k/uL RBC 3.67 L (4.30-5.90) m/uL Hgb 11.6 L (13.0-17.5) gm/dL Hct 35.2 L (39.0-53.0) % RDW 16.3 H (11.5-15.5) % Plt Count 115 L (150-450) k/uL Lymphocytes # 0.9 L (1.0-4.8) k/uL Sodium 148 H (137-145) mmol/L Chloride 114 H (98-107) mmol/L Glucose 142 H (74-99) mg/dL Calcium 8.0 L (8.4-10.2) mg/dL
[2024-06-08] MEDS: FUROSEMIDE 10 MG/ML 4 ML VIAL IV STA (15:17)
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
[2024-06-08] MEDS: MIRTAZAPINE 15 MG TAB PO SCH (21:11)
[2024-06-08] MEDS: LATANOPROST 0.005% OPHTH DROPS 2.5 ML BTL BOTH EYES SCH (21:50)
[2024-06-08] MEDS: ALBUTEROL NEBULIZED 2.5 MG/3 ML INHALATION PRN (21:59)
[2024-06-09] MEDS: BUMETANIDE 1 MG TAB PO SCH (00:04)
[2024-06-09] MEDS: DULoxetine HCL 30 MG CAPSULE.DR PO SCH (09:31)
[2024-06-09] MEDS: THIAMINE 100 MG TAB PO SCH (09:32)
[2024-06-09 09:41] LABS: Anisocytosis Slight; HCT 34.8 % (39.0-53.0); HGB 11.1 gm/dL (13.0-17.5); MCH 30.9 pg (25.0-35.0); MCHC 32.1 g/dL (31.0-37.0); MCV 96.5 fL (80.0-100.0); Mean Platelet Volume 9.2; Platelet Count 113 k/uL (150-450); RDW 16.1 % (11.5-15.5); WBC 3.1 k/uL (3.8-10.6)
[2024-06-09 09:53] LABS: ALT 15 U/L (4-49); AST 24 U/L (17-59); African American GFR (CKD) >90 (>60 ml/min/1.73 sqM); Albumin 3.4 g/dL (3.5-5.0); Albumin/Globulin Ratio 1.1; Alkaline Phosphatase 91 U/L (38-126); Anion Gap 5 mmol/L; Blood Urea Nitrogen 14 mg/dL (9-20); Calcium 7.6 mg/dL (8.4-10.2); Carbon Dioxide 31 mmol/L (22-30); Chloride 101 mmol/L (98-107); Globulin 3.1 g/dL; Glucose 122 mg/dL (74-99); Magnesium 1.4 mg/dL (1.6-2.3); Non-African American GFR(CKD) 84 (>60 ml/min/1.73 sqM); Potassium 3.5 mmol/L (3.5-5.1); Sodium 137 mmol/L (137-145); Total Bilirubin 0.9 mg/dL (0.2-1.3); Total Protein 6.5 g/dL (6.3-8.2)
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
--- NOTE | 2024-06-09 14:49 | P.PN ---
Subjective Progress Note Date: 06/09/24 Hospital Course: Patient is a 63-year-old male with a past medical history of atrial fibrillation on anticoagulation with Eliquis, chronic systolic heart failure with EF of 35 to 40%, stable type A aortic dissection, EtOH abuse, and HIV. He presented to the emergency department with a chief complaint of alcohol withdraw. Patient reports drinking a fifth or more of liquor daily and reports that this is increased because he has been very depressed after being told by cardiothoracic surgeon from [facility] that he is not medically stable to undergo bypass surgery and he has been very anxious and depressed since and drinking more than normal. Patient reports last drink being yesterday or bed and reports this morning waking up with severe withdrawal symptoms. Patient reports feeling extremely shaky, anxious, and nauseous. Patient reports the more shaky becomes more anxious he becomes because he knows that withdrawal is going to increase his blood pressure which could worsen his aortic dissection. Patient currently denies having any headache, lightheadedness, dizziness, chest pain, palpitations, shortness of breath, or experiencing any numbness/tingling/weakness/swelling in his extremities. Upon arrival to our facility, patient underwent evaluation in the emergency department. Vital signs upon arrival show blood pressure 147/93, heart rate 96, respiratory rate 18, temp 98.2 F, and SpO2 of 95% on room air. Chest x-ray completed showing small left-sided pleural effusion with adjacent atelectasis and nonspecific increased lung markings concerning for mild pulmonary edema. Labs completed and reviewed. CBC showing pancytopenia with WBC count of 2.7, hemoglobin 11.6, platelet count of 115. BMP showing mild hyponatremia with sodium of 148, and chloride of 114. Blood glucose 142. Magnesium was slightly low at 1.6. Liver profile unremarkable. Troponin was 0.015. proBNP was 4020. Serum alcohol level was 35. Patient admitted under our services with consultations to psychiatry and cardiology. EKG showing normal sinus rhythm at 72 bpm with a first-degree AV block with OK interval of 219 ms. Physical exam: Vital signs reviewed and stable. General: Nontoxic, no distress and appears stated age. Derm: Skin warm and dry, normal coloration for ethnicity. Head: Atraumatic, normocephalic and symmetric. Eyes: EOM's intact, no lid lag, and anicteric sclera Mouth: no lip lesions, mucus membranes moist Cardiovascular: regular rate and rhythm with normal S1S2, systolic murmur, positive posterior tibial pulses bilaterally, and cap refill < 2 seconds. Lungs: Respirations even, regular, and unlabored on 2L O2 via nasal cannula. Lungs with basilar crackles. No wheezing, rhonchi, rales, or accessory muscle usage. Abdominal: soft, nontender to palpation, no guarding, no appreciable organomegaly Ext: ROM intact. No gross muscle atrophy, 1+ BLE edema, no contractures Neuro: Speech clear, face symmetrical and CN II-XII grossly intact with no noted focal neuro deficits Psych: Alert and oriented to person, place, time, and situation. Appropriate and pleasant affect. Assessment and Plan of Care: Alcohol withdraw in active alcoholic Pancytopenia, secondary to daily alcohol abuse -Order placed for monitoring of CIWA scores and patient to be medicated with Ativan 0.5 mg every 4 hours as needed for CIWA score of 4-5, Ativan 1 mg every 4 hours for CIWA score of 6-7, Ativan 2 mg every 3 hours CIWA score of 8-9, and Ativan 2 mg every 2 hours forr CIWA score of 10 or greater. -Thiamine 100 mg daily, and Multivitamin daily, and Folate 1 mg daily -Seizure, fall, aspiration, and elopement precautions in place. -Continued close monitoring of electrolytes and replace as needed. -Telemetry monitoring. Acute exacerbation of Chronic systolic heart failure Paroxysmal atrial fibrillation CAD Type A aortic dissection -Patient denies experiencing cardiac complaints at this time including chest pain, palpitations, or shortness of breath. -Troponin 0.015 which appears to be at patient's baseline. proBNP is 4020 which is increased from previous proBNP drawn on 06/06/2024 resulting at 912. -EKG showing normal sinus rhythm at 72 bpm with a first-degree AV block with OK interval of 219 ms. -Patient was given a one-time dose of Lasix 40 mg IVP and to continue home Bumex 1 mg twice daily. -Cardiology consulted, reviewed documentation in chart. Recommending outpatient follow-up in our office after discharge. -Patient to continue cardiac medication regimen with rosuvastatin 20 mg daily, Entresto 24-26 mg tablet twice daily, Eliquis 2.5 mg twice daily, amiodarone 200 mg twice daily, Bumex 1 mg twice daily, metoprolol succinate 100 mg daily, Jardiance 10 mg daily, and fenofibrate 48 mg daily. Depression and anxiety -Patient reports experiencing severe depression but denies having any suicidal ideations. He reports he is depressed because he wants to live and does not want to . Patient requesting to be evaluated by psychiatrist. -Psychiatry evaluated, discontinued Lexapro 10 mg daily. Stated patient does not meet inpatient criteria at this time. Reviewed documentation in chart. -Continue Cymbalta 30 mg daily. HIV -Continue Biktarvy 500 200 25 mg daily as Prezcobix 800-150 mg daily.. Hypomagnesemia -Order placed for 3 g magnesium sulfate IVPB for magnesium of 1.4. Will continue to monitor with repeat a.m. labs.- Data and imaging reviewed: Morning labs reviewed. CBC showing continued pancytopenia with WBC count of 3.1, hemoglobin of 11.1, platelet count of 113. BMP showing hypercarbia with bicarb of 31 otherwise normal findings. Blood glucose 122. Magnesium was low at 1.4 Vital signs reviewed. Blood pressure 131/68, heart rate 66, respiratory rate 17, temp 98.1 F, and SpO2 of 95% on room air. Current CIWA score 8 CODE STATUS: Full code DVT prophylaxis: Eliquis Anticipated discharge date: Likely tomorrow morning pending Ativan need througho ut the next [address]: Home Patient was seen independently by Nurse Practitioner. This document was prepared using [employer] dictation software. Please allow for errors in nail specialist while rare they do occur. Ismael Mireles NP rendered care for this patient independently, reviewed the findings and plan as documented in the note above and agree with plan. I did not physically speak with or examine the patient on this date. Objective - Vital Signs Vital signs: Vital Signs Temp 98.1 F 06/09/24 07:04 Pulse 66 06/09/24 07:04 Resp 17 06/09/24 07:04 BP 131/68 06/09/24 07:04 Pulse Ox 95 06/09/24 07:04 FiO2 Intake & Output 06/08/24 06/09/24 06/09/24 18:59 06:59 18:59 Intake Total 1080 Output Total 450 Balance 630 Weight 77.111 kg Intake: Oral 1080 Output: Urine 450 Other: Voiding Method Bedside Commode Urinal - Labs CBC & Chem 7: 06/09/24 08:52 06/09/24 08:52
[2024-06-09] MEDS: MAGNESIUM SULFATE-D5W PMX 1 GM in DEXTROSE/WATER 1 100ML.BAG IVPB SCH (16:48)
[2024-06-09] MEDS: LORazepam 2 MG/ML INJ IV PRN (22:04)
[2024-06-10 08:53] LABS: ALT 14 U/L (10-49); AST 22 U/L (14-35); Albumin 3.6 g/dL (3.8-4.9); Alkaline Phosphatase 99 U/L (41-126); Blood Urea Nitrogen 13.2 mg/dL (9.0-27.0); Calcium 7.8 mg/dL (8.7-10.3); Carbon Dioxide 25.5 mmol/L (21.6-31.8); Chloride 99 mmol/L (96-109); Glucose 99 mg/dL (70-110); Magnesium 2.4 mg/dL (1.5-2.4); Potassium 3.4 mmol/L (3.5-5.5); Sodium 137 mmol/L (135-145); Total Bilirubin 0.8 mg/dL (0.3-1.2); Total Protein 6.6 g/dL (6.2-8.2)
[2024-06-10 08:54] LABS: HCT 34.1 % (39.6-50.0); HGB 11.1 g/dL (13.0-17.0); MCH 31.4 pg (27.0-32.0); MCHC 32.6 g/dL (32.0-37.0); MCV 96.6 FL (80.0-97.0); Mean Platelet Volume 12.1 FL (9.5-12.2); NRBC Per 100 WBC 0 X 10*3/uL (0.00-0.01); Platelet Count 123 X 10*3/uL (140-440); RBC 3.53 X 10*6/uL (4.40-5.60); RDW 16.5 % (11.5-14.5); WBC 3.21 X 10*3/uL (4.50-10.00)
--- NOTE | 2024-06-10 12:49 | P.PN ---
Subjective Progress Note Date: 06/10/24 Hospital Course: Patient is a 63-year-old male with a past medical history of atrial fibrillation on anticoagulation with Eliquis, chronic systolic heart failure with EF of 35 to 40%, stable type A aortic dissection, EtOH abuse, and HIV. He presented to the emergency department with a chief complaint of alcohol withdraw. Patient reports drinking a fifth or more of liquor daily and reports that this is increased because he has been very depressed after being told by cardiothoracic surgeon from [facility] that he is not medically stable to undergo bypass surgery and he has been very anxious and depressed since and drinking more than normal. Patient reports last drink being yesterday or bed and reports this morning waking up with severe withdrawal symptoms. Patient reports feeling extremely shaky, anxious, and nauseous. Patient reports the more shaky becomes more anxious he becomes because he knows that withdrawal is going to increase his blood pressure which could worsen his aortic dissection. Patient currently denies having any headache, lightheadedness, dizziness, chest pain, palpitations, shortness of breath, or experiencing any numbness/tingling/weakness/swelling in his extremities. Upon arrival to our facility, patient underwent evaluation in the emergency department. Vital signs upon arrival show blood pressure 147/93, heart rate 96, respiratory rate 18, temp 98.2 F, and SpO2 of 95% on room air. Chest x-ray completed showing small left-sided pleural effusion with adjacent atelectasis and nonspecific increased lung markings concerning for mild pulmonary edema. Labs completed and reviewed. CBC showing pancytopenia with WBC count of 2.7, hemoglobin 11.6, platelet count of 115. BMP showing mild hyponatremia with sodium of 148, and chloride of 114. Blood glucose 142. Magnesium was slightly low at 1.6. Liver profile unremarkable. Troponin was 0.015. proBNP was 4020. Serum alcohol level was 35. Patient admitted under our services with consultations to psychiatry and cardiology. EKG showing normal sinus rhythm at 72 bpm with a first-degree AV block with WV interval of 219 ms. Physical exam: Patient seen and fully evaluated at bedside this morning. He reports feeling "rough" this morning. Patient states he feels his withdrawal symptoms are slightly worse this morning. He has received a total of 7 mg of Ativan over the past 24 hours. Vital signs reviewed and stable. General: Nontoxic, no distress and appears stated age. Derm: Skin warm and dry, normal coloration for ethnicity. Head: Atraumatic, normocephalic and symmetric. Eyes: EOM's intact, no lid lag, and anicteric sclera Mouth: no lip lesions, mucus membranes moist Cardiovascular: regular rate and rhythm with normal S1S2, systolic murmur, positive posterior tibial pulses bilaterally, and cap refill < 2 seconds. Lungs: Respirations even, regular, and unlabored on 2L O2 via nasal cannula. Lungs with basilar crackles. No wheezing, rhonchi, rales, or accessory muscle usage. Abdominal: soft, nontender to palpation, no guarding, no appreciable organomegaly Ext: ROM intact. No gross muscle atrophy, 1+ BLE edema, no contractures Neuro: Speech clear, face symmetrical and CN II-XII grossly intact with no noted focal neuro deficits Psych: Alert and oriented to person, place, time, and situation. Appropriate and pleasant affect. Assessment and Plan of Care: Alcohol withdraw in active alcoholic Pancytopenia, secondary to daily alcohol abuse -Order placed for monitoring of CIWA scores and patient to be medicated with Ativan 0.5 mg every 4 hours as needed for CIWA score of 4-5, Ativan 1 mg every 4 hours for CIWA score of 6-7, Ativan 2 mg every 3 hours CIWA score of 8-9, and Ativan 2 mg every 2 hours forr CIWA score of 10 or greater. CIWA score 10. -Thiamine 100 mg daily, and Multivitamin daily, and Folate 1 mg daily -Seizure, fall, aspiration, and elopement precautions in place. -Continued close monitoring of electrolytes and replace as needed. -Telemetry monitoring. Acute exacerbation of Chronic systolic heart failure Paroxysmal atrial fibrillation CAD Type A aortic dissection -Patient denies experiencing cardiac complaints at this time including chest p ain, palpitations, or shortness of breath. -Troponin 0.015 which appears to be at patient's baseline. proBNP is 4020 which is increased from previous proBNP drawn on 06/06/2024 resulting at 912. -EKG showing normal sinus rhythm at 72 bpm with a first-degree AV block with WV interval of 219 ms. -Patient was given a one-time dose of Lasix 40 mg IVP and to continue home Bumex 1 mg twice daily. -Cardiology consulted, reviewed documentation in chart. Recommending outpatient follow-up in our office after discharge. -Patient to continue cardiac medication regimen with rosuvastatin 20 mg daily, Entresto 24-26 mg tablet twice daily, Eliquis 2.5 mg twice daily, amiodarone 200 mg twice daily, Bumex 1 mg twice daily, metoprolol succinate 100 mg daily, Jardiance 10 mg daily, and fenofibrate 48 mg daily. Depression and anxiety -Patient reports experiencing severe depression but denies having any suicidal ideations. He reports he is depressed because he wants to live and does not want to . Patient requesting to be evaluated by psychiatrist. -Psychiatry evaluated, discontinued Lexapro 10 mg daily. Stated patient does not meet inpatient criteria at this time. Reviewed documentation in chart. -Continue Cymbalta 30 mg daily. HIV -Continue Biktarvy 500 200 25 mg daily as Prezcobix 800-150 mg daily.. Hypomagnesemia -Order placed for 3 g magnesium sulfate IVPB for magnesium of 1.4. Will continue to monitor with repeat a.m. labs.- Data and imaging reviewed: Morning labs reviewed. CBC showing continued pancytopenia with WBC count of 3.21, hemoglobin of 11.1, platelet count of 123.. BMP showing hypokalemia with potassium of 3.4 and mildly elevated anion gap of 12.50 otherwise normal findings. Blood glucose 99. Magnesium 2.4. Liver profile unremarkable with exception of hypoalbuminemia with albumin of 3.6. Vital signs reviewed. Blood pressure 119/67, heart rate 63, respiratory rate 20, temp 97.3 F, and SpO2 of 93% on room air. Current CIWA score 10 this morning. CODE STATUS: Full code DVT prophylaxis: Eliquis Anticipated discharge date: Likely tomorrow morning pending Ativan need throughout the next 24 hours. Patient received a total of 7 mg of Ativan over the past 24 with morning CIWA score of 10. Anticipated discharge place: Home Patient was seen independently by Nurse Practitioner. This document was prepared using [employer] dictation software. Please allow for errors in icu rn while rare they do occur. Ismael Mireles NP rendered care for this patient independently, reviewed the findings and plan as documented in the note above and agree with plan. I did not physically speak with or examine the patient on this date. Objective - Vital Signs Vital signs: Vital Signs Temp 97.3 F L 12/10/24 07:20 Pulse 63 06/10/24 07:20 Resp 20 06/10/24 07:20 BP 119/67 06/10/24 07:20 Pulse Ox 93 L 06/10/24 07:20 FiO2 Intake & Output 06/09/24 06/10/24 06/10/24 18:59 06:59 18:59 Intake Total 2211 Output Total 700 350 Balance -700 1861 Weight 79.2 kg Intake: Oral 2211 Output: Urine 700 350 Other: Voiding Method Bedside Commode Urinal # Voids 4 1 - Labs CBC & Chem 7: 06/10/24 03:53 06/10/24 03:53 Labs: Abnormal Lab Results - Last 24 Hours (Table) 06/09/24 06/09/24 Range/Units 08:52 08:52 WBC 3.1 L (3.8-10.6) k/uL RBC 3.60 L (4.30-5.90) m/uL Hgb 11.1 L (13.0-17.5) gm/dL Hct 34.8 L (39.0-53.0) % RDW 16.1 H (11.5-15.5) % Plt Count 113 L (150-450) k/uL Carbon Dioxide 31 H (22-30) mmol/L Glucose 122 H (74-99) mg/dL Calcium 7.6 L (8.4-10.2) mg/dL Magnesium 1.4 L (1.6-2.3) mg/dL Albumin 3.4 L (3.5-5.0) g/dL
[2024-06-10] MEDS: POTASSIUM CHLORIDE ER 20 MEQ TAB.ER PO STA (14:53)
[2024-06-11 05:52] LABS: ALT 15 U/L (4-49); AST 28 U/L (17-59); African American GFR (CKD) >90 (>60 ml/min/1.73 sqM); Albumin 3.3 g/dL (3.5-5.0); Albumin/Globulin Ratio 1.1; Alkaline Phosphatase 90 U/L (38-126); Blood Urea Nitrogen 13 mg/dL (9-20); Calcium 7.9 mg/dL (8.4-10.2); Carbon Dioxide 26 mmol/L (22-30); Chloride 103 mmol/L (98-107); Globulin 3.1 g/dL; Glucose 81 mg/dL (74-99); Magnesium 1.9 mg/dL (1.6-2.3); Non-African American GFR(CKD) 80 (>60 ml/min/1.73 sqM); Potassium 3.7 mmol/L (3.5-5.1); Total Bilirubin 0.8 mg/dL (0.2-1.3); Total Protein 6.4 g/dL (6.3-8.2)
[2024-06-11 06:17] LABS: Anion Gap 6 mmol/L; Sodium 135 mmol/L (137-145)
[2024-06-11 06:21] LABS: Anisocytosis Slight; HCT 34.9 % (39.0-53.0); HGB 11.3 gm/dL (13.0-17.5); MCH 31.3 pg (25.0-35.0); MCHC 32.5 g/dL (31.0-37.0); MCV 96.3 fL (80.0-100.0); Mean Platelet Volume 10.7; Platelet Count 130 k/uL (150-450); RBC 3.62 m/uL (4.30-5.90); RDW 16.6 % (11.5-15.5)
[2024-06-11 08:04] VITALS: RESP 18
[2024-06-11] MEDS: LORazepam 1 MG TAB PO PRN (09:13)
[2024-06-11 13:22] VITALS: BP 106/60; PULSE 61; TEMP 98
--- NOTE | 2024-06-11 13:45 | P.DS ---
Providers Date of admission: 06/08/24 06:41 Expected date of discharge: 06/11/24 Attending physician: Abisai Bruno MD Consults: 06/08/24 11:42 Consult Physician Routine Consulting Provider: Psychiatry - [facility] Psychiatry Consult Reason/Comments: Severe Depression, denies SI but pt requesting eval by psychiatrist Do you want consulting provider notified?: Already Contacted 06/08/24 15:00 Consult Physician Routine Consulting Provider: Lam Reyes Consult Reason/Comments: systolic HF exacerbation Do you want consulting provider notified?: Yes Primary care physician: Girma Hernesto [facility] Course: Discharge Diagnosis: Alcohol withdraw in active alcoholic Pancytopenia, secondary to daily alcohol abuse Mild exacerbation of Chronic systolic heart failure. Cardiology evaluated, no medication changes made at this time. Patient was given a one-time dose of Lasix 40 mg IVP and to continue Bumex 1 mg twice daily in addition to current cardiac medication regimen with rosuvastatin 20 mg daily, Entresto 24-26 mg tablet twice daily, Eliquis 2.5 mg twice daily, amiodarone 200 mg twice daily, Bumex 1 mg twice daily, metoprolol succinate 100 mg daily, Jardiance 10 mg daily, and fenofibrate 48 mg daily Paroxysmal atrial fibrillation. Patient to continue medication regimen with Eliquis 2.5 mg twice daily, amiodarone 200 mg twice daily, and metoprolol succinate 100 mg daily. CAD. Patient to continue cardiac medication regimen with rosuvastatin 20 mg daily, Entresto 24-26 mg tablet twice daily, Eliquis 2.5 mg twice daily, amiodarone 200 mg twice daily, Bumex 1 mg twice daily, metoprolol succinate 100 mg daily, Jardiance 10 mg daily, and fenofibrate 48 mg daily. Type A aortic dissection Depression and anxiety. Psychiatry evaluated, discontinued Lexapro 10 mg daily. Stated patient does not meet inpatient criteria at this time. Reviewed documentation in chart. Continue Cymbalta 30 mg daily. HIV Continue Biktarvy 500 200 25 mg daily as Prezcobix 800-150 mg daily.. Hypomagnesemia, Resolved. Hypokalemia, Resolved. Hospital Course: Patient is a 63-year-old male with a past medical history of atrial fibrillation on anticoagulation with Eliquis, chronic systolic heart failure with EF of 35 to 40%, stable type A aortic dissection, EtOH abuse, and HIV. He presented to the emergency department with a chief complaint of alcohol withdraw. Patient r eports drinking a fifth or more of liquor daily and reports that this is increased because he has been very depressed after being told by cardiothoracic surgeon from [facility] that he is not medically stable to undergo bypass surgery and he has been very anxious and depressed since and drinking more than normal. Patient reports last drink being yesterday or bed and reports this morning waking up with severe withdrawal symptoms. Patient reports feeling extremely shaky, anxious, and nauseous. Patient reports the more shaky becomes more anxious he becomes because he knows that withdrawal is going to increase his blood pressure which could worsen his aortic dissection. Patient currently denies having any headache, lightheadedness, dizziness, chest pain, palpitations, shortness of breath, or experiencing any numbness/tingling/weakness/swelling in his extremities. Upon arrival to our facility, patient underwent evaluation in the emergency department. Vital signs upon arrival show blood pressure 147/93, heart rate 96, respiratory rate 18, temp 98.2 F, and SpO2 of 95% on room air. Chest x-ray completed showing small left-sided pleural effusion with adjacent atelectasis and nonspecific increased lung markings concerning for mild pulmonary edema. Labs completed and reviewed. CBC showing pancytopenia with WBC count of 2.7, hemoglobin 11.6, platelet count of 115. BMP showing mild hyponatremia with sodium of 148, and chloride of 114. Blood glucose 142. Magnesium was slightly low at 1.6. Liver profile unremarkable. Troponin was 0.015. proBNP was 4020. Serum alcohol level was 35. Patient admitted under our services with consultations to psychiatry and cardiology. EKG showing normal sinus rhythm at 72 bpm with a first-degree AV block with OR interval of 219 ms. Psychiatry evaluated, discontinued Lexapro 10 mg daily. Stated patient does not meet inpatient criteria at this time. Reviewed documentation in chart. Continue Cymbalta 30 mg daily. Cardiology evaluated, no medication changes made at this time. Patient was given a one- time dose of Lasix 40 mg IVP and to continue Bumex 1 mg twice daily in addition to current cardiac medication regimen. Patient cleared from cardiac perspective for discharge. He was treated for alcohol withdraw and currently reports feeling much better. Patient states he is ready to go home and was strongly advised to avoid any and all alcohol use. Patient to follow-up outpatient with Physical exam: Vital signs reviewed and stable. General: Nontoxic, no distress and appears stated age. Derm: Skin warm and dry, normal coloration for ethnicity. Head: Atraumatic, normocephalic and symmetric. Eyes: EOM's intact, no lid lag, and anicteric sclera Mouth: no lip lesions, mucus membranes moist Cardiovascular: regular rate and rhythm with normal S1S2, systolic murmur, positive posterior tibial pulses bilaterally, and cap refill < 2 seconds. Lungs: Respirations even, regular, and unlabored on 2L O2 via nasal cannula. Lungs with basilar crackles. No wheezing, rhonchi, rales, or accessory muscle usage. Abdominal: soft, nontender to palpation, no guarding, no appreciable organomegaly Ext: ROM intact. No gross muscle atrophy, 1+ BLE edema, no contractures Neuro: Speech clear, face symmetrical and CN II-XII grossly intact with no noted focal neuro deficits Psych: Alert and oriented to person, place, time, and situation. Appropriate and pleasant affect. A total of 35 minutes of time were spent preparing this complex discharge summary. Pt was discharged on 06/11/2024 at 1:39 PM. Patient was seen independently by Nurse Practitioner. This document was prepared using [employer] dictation software. Please allow for errors in ice bag assembler while rare they do occur. Ismael Mireles NP rendered care for this patient independently, reviewed the findings and plan as documented in the note above. I did not physically speak with or examine the patient on this date. Patient Condition at Discharge: Stable Plan - Discharge Summary Discharge Rx Participant: Yes New Discharge Prescriptions: Continue Darunavir/Cobicistat [Prezcobix 800 mg-150 mg Tablet] 1 tab PO DAILY Albuterol Sulfate [Albuterol Sulfate Hfa] 2 puff INHALATION RT-QID PRN PRN Reason: Shortness Of Breath Sacubitril/Valsartan [Entresto 24 mg-26 mg Tablet] 1 tab PO BID Levothyroxine Sodium 200 mcg PO DAILY Apixaban [Eliquis] 2.5 mg PO BID Amiodarone [Cordarone] 200 mg PO BID Cholecalciferol [Vitamin D3 (25 Mcg = 1000 Iu)] 25 mcg PO DAILY Mirtazapine 7.5 mg PO HS Multivitamins, Thera [Multivitamin (formulary)] 1 tab PO DAILY Omeprazole [PriLOSEC] 40 mg PO DAILY Rosuvastatin [Crestor] 20 mg PO DAILY Capsaicin Cream [Trixaicin Cream] 1 applic TOPICAL QID Metoprolol Succinate (ER) [Toprol XL] 100 mg PO DAILY Bictegrav/Emtricit/Tenofov Ala [Biktarvy 50-200-25 mg Tablet] 1 tab PO DAILY Empagliflozin [Jardiance] 10 mg PO DAILY Fenofibrate Nanocrystallized [Fenofibrate] 48 mg PO DAILY oxyCODONE-APAP 10-325MG [Percocet 10-325 mg] 1 tab PO Q6HR PRN 3 Days #12 tab PRN Reason: Pain Bimatoprost [Lumigan 0.01% Ophth Soln] 1 drop BOTH EYES HS allopurinoL 100 mg PO DAILY Thiamine [Vitamin B-1] 100 mg PO DAILY 30 Days #30 tab Lidocaine 5% Patch [Lidoderm 5% Patch] 1 patch TOPICAL DAILY DULoxetine HCL [Cymbalta] 30 mg PO DAILY #60 cap Changed Bumetanide [BUMEX] 1 mg PO BID #0 Discontinued Escitalopram [Lexapro] 10 mg PO DAILY 30 Days #30 tab Discharge Medication List Bictegrav/Emtricit/Tenofov Ala [Biktarvy 50-200-25 mg Tablet] 1 tab PO DAILY 09/07/21 [History] Darunavir/Cobicistat [Prezcobix 800 mg-150 mg Tablet] 1 tab PO DAILY 09/07/22 [History] Albuterol Sulfate [Albuterol Sulfate Hfa] 2 puff INHALATION RT-QID PRN 12/27/23 [History] Empagliflozin [Jardiance] 10 mg PO DAILY 12/27/23 [History] Sacubitril/Valsartan [Entresto 24 mg-26 mg Tablet] 1 tab PO BID 12/27/23 [History] Fenofibrate Nanocrystallized [Fenofibrate] 48 mg PO DAILY 03/17/24 [History] Levothyroxine Sodium 200 mcg PO DAILY 03/17/24 [History] oxyCODONE-APAP 10-325MG [Percocet 10-325 mg] 1 tab PO Q6HR PRN 3 Days #12 tab 03/20/24 [Rx] Apixaban [Eliquis] 2.5 mg PO BID 04/03/24 [History] Bimatoprost [Lumigan 0.01% Ophth Soln] 1 drop BOTH EYES HS 04/03/24 [History] allopurinoL 100 mg PO DAILY 04/03/24 [History] Thiamine [Vitamin B-1] 100 mg PO DAILY 30 Days #30 tab 04/28/24 [Rx] Amiodarone [Cordarone] 200 mg PO BID 05/23/24 [History] Cholecalciferol [Vitamin D3 (25 Mcg = 1000 Iu)] 25 mcg PO DAILY 05/23/24 [ History] Lidocaine 5% Patch [Lidoderm 5% Patch] 1 patch TOPICAL DAILY 05/23/24 [History] Mirtazapine 7.5 mg PO HS 05/23/24 [History] Multivitamins, Thera [Multivitamin (formulary)] 1 tab PO DAILY 05/23/24 [History] Omeprazole [PriLOSEC] 40 mg PO DAILY 05/23/24 [History] Rosuvastatin [Crestor] 20 mg PO DAILY 05/23/24 [History] DULoxetine HCL [Cymbalta] 30 mg PO DAILY #60 cap 05/24/24 [Rx] Capsaicin Cream [Trixaicin Cream] 1 applic TOPICAL QID 05/31/24 [History] Metoprolol Succinate (ER) [Toprol XL] 100 mg PO DAILY 06/06/24 [History] Bumetanide [BUMEX] 1 mg PO BID #0 06/11/24 [Rx] Follow up Appointment(s)/Referral(s): [facility], [NON-STAFF] - 1 Week Girma Malone MD [Primary Care Provider] - 1-2 days Patient Instructions/Handouts: Depression (DC), Abuse of Alcohol (DC), Alcohol Withdrawal (DC) Activity/Diet/Wound Care/Special Instructions: Activity: As tolerated. Take breaks as needed. Diet: Heart healthy and carb consistent diet. Avoid salts, or foods with hidden salts such as canned or boxed foods and frozen dinners. Extra salt makes your heart work harder and traps the fluid in your body for longer. Special Instructions: Take all of your medications as directed and remember to keep all of your doctor's appointments and follow-up as needed. Wishing you a blessed and wonderful holiday season and a happy new year. Thank you for allowing us to participate in your care, it was truly a pleasure having you for our patient!!! Discharge/Stand Alone Forms: AA Meetings Dist 22 [address] 24 - [facility], Community Resources, Outpatient Counseling, Inp Substance Abuse Facilities Discharge Disposition: HOME WITH HOME HEALTH SERVICES
== END 2024-06-11 14:08 | disposition home health service (06) | DRG 896 ==
LOC: EC 23:49 → 4SSUR 06-08 06:41
PROVIDERS: ADMIT Internal Medicine; ATTEND Internal Medicine
DX: F10.239 Alcohol dependence with withdrawal, unspecified (principal); I50.23 Acute on chronic systolic (congestive) heart failure; I71.010 Dissection of ascending aorta; D61.818 Other pancytopenia; F33.1 Major depressive disorder, recurrent, moderate; I42.9 Cardiomyopathy, unspecified; J98.11 Atelectasis; I11.0 Hypertensive heart disease with heart failure; Z21 Asymptomatic human immunodeficiency virus [HIV] infection status; I71.21 Aneurysm of the ascending aorta, without rupture; I48.0 Paroxysmal atrial fibrillation; J45.909 Unspecified asthma, uncomplicated; T51.91XA Toxic effect of unspecified alcohol, accidental (unintentional), initial encounter; I25.10 Atherosclerotic heart disease of native coronary artery without angina pectoris; E78.5 Hyperlipidemia, unspecified; E83.42 Hypomagnesemia; E87.6 Hypokalemia; F41.9 Anxiety disorder, unspecified; F43.10 Post-traumatic stress disorder, unspecified; I49.3 Ventricular premature depolarization; G89.4 Chronic pain syndrome; M79.7 Fibromyalgia; M48.061 Spinal stenosis, lumbar region without neurogenic claudication; M47.816 Spondylosis without myelopathy or radiculopathy, lumbar region; N40.0 Benign prostatic hyperplasia without lower urinary tract symptoms; M10.9 Gout, unspecified; H40.9 Unspecified glaucoma; K21.9 Gastro-esophageal reflux disease without esophagitis; M54.2 Cervicalgia; M25.551 Pain in right hip; M25.552 Pain in left hip; F17.210 Nicotine dependence, cigarettes, uncomplicated; Z79.01 Long term (current) use of anticoagulants; Z79.84 Long term (current) use of oral hypoglycemic drugs; Z79.890 Hormone replacement therapy; Z79.899 Other long term (current) drug therapy; Z91.51 Personal history of suicidal behavior; Z62.810 Personal history of physical and sexual abuse in childhood; Z95.2 Presence of prosthetic heart valve; Z88.1 Allergy status to other antibiotic agents; Z88.5 Allergy status to narcotic agent; Z88.2 Allergy status to sulfonamides; Z88.8 Allergy status to other drugs, medicaments and biological substances
CPT/HCPCS: 36415; 71045; 80053; 80320; 83735; 83880; 84484; 85025; 85027; 93005; 94640; 96361; 96365; 96366; 96375; 96376; 99285

== ENCOUNTER 2024-06-14 23:25 | Inpatient (IN) | payer MEDICARE, OTHER ==
--- NOTE | 2024-06-15 00:19 | ED ---
Anxiety HPI - General Source: EMS, RN notes reviewed Mode of arrival: EMS <Lulú Owens - Last Filed: 06/15/24 03:53> <Isela De La O - Last Filed: 06/15/24 07:48> - General Chief Complaint: Anxiety Stated Complaint: Anxiety Time Seen by Provider: 06/15/24 00:16 - History of Present Illness Initial Comments: 63-year-old male presenting to the ER for anxiety. Patient states he was told on Sunday that he was not a candidate for cardiac surgery and was told by thoracic surgeon at [facility] that he will not live if he undergoes surgery and he will not live if he does not get surgery. Patient is having a difficult time coping with this news and has been using alcohol to cope. He states he has been heavily drinking all week long and feels as though he is "flipping a lid". Denies chest pain, shortness of breath, suicidal or homicidal ideation. (RomanLulú) - Related Data Home Medications: Home Medications Medication Instructions Recorded Confirmed Bictegrav/Emtricit/Tenofov Ala 1 tab PO DAILY 09/07/21 06/08/24 [Biktarvy 50-200-25 mg Tablet] Darunavir/Cobicistat [Prezcobix 1 tab PO DAILY 09/07/22 06/08/24 800 mg-150 mg Tablet] Albuterol Sulfate [Albuterol 2 puff INHALATION RT-QID PRN 12/27/23 06/08/24 Sulfate Hfa] Empagliflozin [Jardiance] 10 mg PO DAILY 12/27/23 06/08/24 Sacubitril/Valsartan [Entresto 24 1 tab PO BID 12/27/23 06/08/24 mg-26 mg Tablet] Fenofibrate Nanocrystallized 48 mg PO DAILY 03/17/24 06/08/24 [Fenofibrate] Levothyroxine Sodium 200 mcg PO DAILY 03/17/24 06/08/24 Apixaban [Eliquis] 2.5 mg PO BID 04/03/24 06/08/24 Bimatoprost [Lumigan 0.01% Ophth 1 drop BOTH EYES HS 04/03/24 06/08/24 Soln] allopurinoL 100 mg PO DAILY 04/03/24 06/08/24 Amiodarone [Cordarone] 200 mg PO BID 05/23/24 06/08/24 Cholecalciferol [Vitamin D3 (25 25 mcg PO DAILY 05/23/24 06/08/24 Mcg = 1000 Iu)] Lidocaine 5% Patch [Lidoderm 5% 1 patch TOPICAL DAILY 05/23/24 06/08/24 Patch] Mirtazapine 7.5 mg PO HS 05/23/24 06/08/24 Multivitamins, Thera [Multivitamin 1 tab PO DAILY 05/23/24 06/08/24 (formulary)] Omeprazole [PriLOSEC] 40 mg PO DAILY 05/23/24 06/08/24 Rosuvastatin [Crestor] 20 mg PO DAILY 05/23/24 06/08/24 Capsaicin Cream [Trixaicin Cream] 1 applic TOPICAL QID 05/31/24 06/08/24 Metoprolol Succinate (ER) [Toprol 100 mg PO DAILY 06/06/24 06/08/24 XL] Previous Rx's Medication Instructions Recorded oxyCODONE-APAP 10-325MG [Percocet 1 tab PO Q6HR PRN 3 Days #12 tab 03/20/24 10-325 mg] Thiamine [Vitamin B-1] 100 mg PO DAILY 30 Days #30 tab 04/28/24 DULoxetine HCL [Cymbalta] 30 mg PO DAILY #60 cap 05/24/24 Bumetanide [BUMEX] 1 mg PO BID #0 06/11/24 Allergies/Adverse Reactions: Allergies Allergy/AdvReac Type Severity Reaction Status Date / Time abacavir [From Ziagen] Allergy Anaphylaxis Verified 06/14/24 23:35 efavirenz [From Sustiva] Allergy Anaphylaxis Verified 06/14/24 23:35 levofloxacin Allergy Itching Verified 06/14/24 23:35 hydrocodone AdvReac Rapid Verified 06/14/24 23:35 [From Hysingla ER] Heart Rate morphine AdvReac Itching Verified 06/14/24 23:35 sulfamethoxazole AdvReac HIGH Verified 06/14/24 23:35 [From Bactrim] CREATININE LEVEL trimethoprim [From Bactrim] AdvReac HIGH Verified 06/14/24 23:35 CREATININE Review of Systems ROS Other: All systems not noted in ROS Statement are negative. <Lulú Owens - Last Filed: 06/15/24 03:53> ROS Other: All systems not noted in ROS Statement are negative. <Isela De La O - Last Filed: 06/15/24 07:48> ROS Statement: Those systems with pertinent positive or pertinent negative responses have been documented in the HPI. Past Medical History Past Medical History: Atrial Fibrillation, Asthma, Heart Failure, Fibromyalgia, GERD/Reflux, Hypertension, Prostate Disorder Additional Past Medical History / Comment(s): Mitral valve disease w/ MV repair at [facility] 2000, HIV positive, past HTN and recently low blood pressures, BPH, R ankle gout, chronic nausea, bilateral glaucoma, chronic pain syndrome, chronic low back and bilateral hip pain and occasional cervical pain, DDD, lumbar stenosis/spondylosis, abdominal hernia, previous history of drug overdose. PTSD History of Any Multi-Drug Resistant Organisms: None Reported Past Surgical History: Heart Catheterization, Hernia Repair Additional Past Surgical History / Comment(s): Mitral valve repair at [facility] (2000), Type A aortic disection repordedly treated conservatively by [facility], R inguinal hernia x2, L inguinal hernia, epidural injections to back, hip injections, RFAs, spinal cord stimulator trial-removed, Past Anesthesia/Blood Transfusion Reactions: No Reported Reaction Past Psychological History: Anxiety, Depression, PTSD Smoking Status: Former smoker Past Alcohol Use History: Abuse, Daily Past Drug Use History: Prescription Drug Abuse - Past Family History Father History Unknown: Yes Additional Family Medical History / Comment(s): Father was injured at work and of complication during his hospitalization. Mother Additional Family Medical History / Comment(s): Mother is from alcoholism. Brother(s) Additional Family Medical History / Comment(s): alcohol and HF <Lulú Owens - Last Filed: 06/15/24 03:53> General Exam General appearance: alert, in no apparent distress, appears intoxicated Head exam: Present: atraumatic, normocephalic, normal inspection Respiratory exam: Present: normal lung sounds bilaterally. Absent: respiratory distress, wheezes, rales, rhonchi, stridor Cardiovascular Exam: Present: regular rate, normal rhythm, normal heart sounds. Absent: systolic murmur, diastolic murmur, rubs, gallop, clicks Neurological exam: Present: alert, oriented X3, CN II-XII intact Psychiatric exam: Present: normal affect, normal mood, anxious. Absent: homicidal ideation, suicidal ideation Skin exam: Present: warm, dry, intact, normal color. Absent: rash <Lulú Owens - Last Filed: 06/15/24 03:53> Course Vital Signs 06/14/24 06/15/24 06/15/24 23:28 01:36 04:00 Temperature 98.3 F Pulse Rate 90 87 91 Respiratory 18 18 18 Rate Blood Pressure 133/67 119/95 157/77 O2 Sat by Pulse 97 97 97 Oximetry Medical Decision Making - Lab Data Result diagrams: 06/14/24 23:39 06/14/24 23:39 - EKG Data -: EKG Interpreted by Me <Lulú Owens - Last Filed: 06/15/24 03:53> - Lab Data Result diagrams: 06/14/24 23:39 06/14/24 23:39 <Isela - Last Filed: 06/15/24 07:48> - Medical Decision Making Was pt. sent in by a medical professional or institution (, PA, HVAC LEAD, urgent care, hospital, or long term...) When possible be specific @ -No Did you speak to anyone other than the patient for history (EMS, parent, family, police, friend...)? What history was obtained from this source @ -No Did you review nursing and triage notes (agree or disagree)? Why? @ -I reviewed and agree with nursing and triage notes Were old charts reviewed (outside hosp., previous admission, EMS record, old EKG, old radiological studies, urgent care reports/EKG's, long term records)? Report findings @ -No old charts were reviewed Differential Diagnosis (chest pain, altered mental status, abdominal pain women, abdominal pain men, vaginal bleeding, weakness, fever, dyspnea, syncope, headache, dizziness, GI bleed, back pain, seizure, CVA, palpatations, mental health, musculoskeletal)? @ -Differential Mental Health Depression, anxiety, bipolar, psychosis, schizophrenia, borderline personality, situational depression, adjustment disorder, behavioral disorder, brain tumor, malingering, substance abuse, encephalopathy, medication reaction, dementia, hypothyroidism, degenerative neurologic disorder, lupus.... This is not meant to be all-inclusive list EKG interpreted by me (3pts min.). @ -As above X-rays interpreted by me (1pt min.). @ -None done CT interpreted by me (1pt min.). @ -None done U/S interpreted by me (1pt. min.). @ -None done What testing was considered but not performed or refused? (CT, X-rays, U/S, labs)? Why? @ -None What meds were considered but not given or refused? Why? @ -None Did you discuss the management of the patient with other professionals (professionals i.e. Dr., PA, HVAC LEAD, lab, RT, psych nurse, social work faculty member, case coordinator, teacher, founder and chief executive officer, pillowcase sewer)? Give summary @ -No Was smoking cessation discussed for >3mins.? @ -No Was critical care preformed (if so, how long)? @ -No Were there social determinants of health that impacted care today? How? (Homelessness, low income, unemployed, alcoholism, drug addiction, transportation, low edu. Level, literacy, decrease access to med. care, mcc, rehab)? @ -No Was there de-escalation of care discussed even if they declined (Discuss DNR or withdrawal of care, Hospice)? DNR status @ -No What co-morbidities impacted this encounter? (DM, HTN, Smoking, COPD, CAD, Cancer, CVA, ARF, Chemo, Hep., AIDS, mental health diagnosis, sleep apnea, morb id obesity)? @ -None Was patient admitted / discharged? Hospital course, mention meds given and rout e, prescriptions, significant lab abnormalities, going to OR and other pertinent info. @ -This is a 63-year-old male presenting for anxiety. Patient is having difficulty coping after medical diagnosis last week. Patient is also acutely intoxicated with alcohol. Vital signs are within acceptable limits. Serum alcohol is 372, will be sober in 15 hours. Patient will be medically clear at 162o for EPS evaluation. Case was discussed with my ED attending Dr. De La O. (Lulú Owens) Was patient admitted / discharged? Hospital course, mention meds given and route, prescriptions, significant lab abnormalities, going to OR and other pertinent info. @ -Admission- Patient signed out to me pending sobriety. Patient complaining of chest pressure and palpitations while awaiting EPS evaluation. EKG was obtained, interpretation is as below: Sinus tachycardia, rate 83 bpm, QRS duration 138 ms, QT/QTc 426/460 ms, left axis deviation, questionable [address] elevation V2 with no reciprocal depressions, this was compared to EKG performed on 06/11/2024 and this elevation in V2 appears similar to prior, no new ST elevations noted. Troponin, chest x-ray added to patient's workup. Patient will be admitted for chest pain. Case discussed with Clare Malave, kindly accepts patient for admission. Initial troponin <0.012 . Undiagnosed new problem with uncertain prognosis? @ -[No] Drug Therapy requiring intensive monitoring for toxicity (Heparin, Nitro, Insulin, Cardizem)? @ -[No] Were any procedures done? @ -[No] Diagnosis/symptom? @Chest pain, anxiety, alcohol intoxication Acute, or Chronic, or Acute on Chronic? @ -acute Uncomplicated (without systemic symptoms) or Complicated (systemic symptoms)? @ -[default] Side effects of treatment? @ -[No] Exacerbation, Progression, or Severe Exacerbation? @ -[No] Poses a threat to life or bodily function? How? (Chest pain, [place], [place], pneumonia, PE, COPD, DKA, ARF, appy, cholecystitis, CVA, Diverticulitis, Homicidal, Suicidal, threat to staff... and all critical care pts)NoNoNoDefaultNoNoNo @ -[No] (Isela De La O) - Lab Data Lab Results 06/14/24 06/14/24 06/15/24 Range/Units 23:39 23:39 05:09 WBC 5.7 (3.8-10.6) k/uL RBC 3.86 L (4.30-5.90) m/uL Hgb 11.8 L (13.0-17.5) gm/dL Hct 37.4 L (39.0-53.0) % MCV 96.7 (80.0-100.0) fL MCH 30.6 (25.0-35.0) pg MCHC 31.7 (31.0-37.0) g/dL RDW 16.1 H (11.5-15.5) % Plt Count 246 (150-450) k/uL MPV 8.7 Neutrophils % 35 % Lymphocytes % 54 % Monocytes % 6 % Eosinophils % 1 % Basophils % 1 % Neutrophils # 2.0 (1.3-7.7) k/uL Lymphocytes # 3.1 (1.0-4.8) k/uL Monocytes # 0.4 (0-1.0) k/uL Eosinophils # 0.1 (0-0.7) k/uL Basophils # 0.0 (0-0.2) k/uL Hypochromasia Slight Anisocytosis Slight PT (10.0-12.5) sec INR (<1.2) APTT (22.0-30.0) sec Sodium 147 H (137-145) mmol/L Potassium 4.5 (3.5-5.1) mmol/L Chloride 114 H (98-107) mmol/L Carbon Dioxide 23 (22-30) mmol/L Anion Gap 10 mmol/L BUN 14 (9-20) mg/dL Creatinine 0.83 (0.66-1.25) mg/dL Est GFR (CKD-EPI)AfAm >90 (>60 ml/min/1.73 sqM) Est GFR (CKD-EPI)NonAf >90 (>60 ml/min/1.73 sqM) Glucose 93 (74-99) mg/dL Calcium 8.9 (8.4-10.2) mg/dL Phosphorus 3.8 (2.5-4.5) mg/dL Magnesium 1.9 (1.6-2.3) mg/dL Total Bilirubin 0.5 (0.2-1.3) mg/dL AST 36 (17-59) U/L ALT 17 (4-49) U/L Alkaline Phosphatase 86 (38-126) U/L Troponin I <0.012 (0.000-0.034) ng/mL NT-Pro-B Natriuret Pep pg/mL Total Protein 7.8 (6.3-8.2) g/dL Albumin 4.2 (3.5-5.0) g/dL Lipase (23-300) U/L Serum Alcohol 372 H* mg/dL 06/15/24 06/15/24 Range/Units 05:54 05:54 WBC (3.8-10.6) k/uL RBC (4.30-5.90) m/uL Hgb (13.0-17.5) gm/dL Hct (39.0-53.0) % MCV (80.0-100.0) fL MCH (25.0-35.0) pg MCHC (31.0-37.0) g/dL RDW (11.5-15.5) % Plt Count (150-450) k/uL MPV Neutrophils % % Lymphocytes % % Monocytes % % Eosinophils % % Basophils % % Neutrophils # (1.3-7.7) k/uL Lymphocytes # (1.0-4.8) k/uL Monocytes # (0-1.0) k/uL Eosinophils # (0-0.7) k/uL Basophils # (0-0.2) k/uL Hypochromasia Anisocytosis PT 10.8 (10.0-12.5) sec INR 1.0 (<1.2) APTT 23.2 (22.0-30.0) sec Sodium (137-145) mmol/L Potassium (3.5-5.1) mmol/L Chloride (98-107) mmol/L Carbon Dioxide (22-30) mmol/L Anion Gap mmol/L BUN (9-20) mg/dL Creatinine (0.66-1.25) mg/dL Est GFR (CKD-EPI)AfAm (>60 ml/min/1.73 sqM) Est GFR (CKD-EPI)NonAf (>60 ml/min/1.73 sqM) Glucose (74-99) mg/dL Calcium (8.4-10.2) mg/dL Phosphorus (2.5-4.5) mg/dL Magnesium (1.6-2.3) mg/dL Total Bilirubin (0.2-1.3) mg/dL AST (17-59) U/L ALT (4-49) U/L Alkaline Phosphatase (38-126) U/L Troponin I (0.000-0.034) ng/mL NT-Pro-B Natriuret Pep 2480 pg/mL Total Protein (6.3-8.2) g/dL Albumin (3.5-5.0) g/dL Lipase 158 (23-300) U/L Serum Alcohol mg/dL - EKG Data EKG Comments: Normal sinus rhythm with widened QRS complexes and left axis deviation, ventricular rate 83 bpm, LA interval 204, QRS duration 138, QT/QTc 427/466 (Lulú Owens) Disposition <Lulú Owens - Last Filed: 06/15/24 03:53> <Isela De La O - Last Filed: 06/15/24 07:48> Clinical Impression: Acute anxiety, Chest pain Disposition: ADMITTED IP TO THIS HOSP Condition: Stable
[2024-06-15 00:53] LABS: Anisocytosis Slight; Basophils % (A) 1 %; Eosinophils # (A) 0.1 k/uL (0-0.7); Eosinophils % (A) 1 %; HCT 37.4 % (39.0-53.0); HGB 11.8 gm/dL (13.0-17.5); Hypochromasia Slight; Lymphocytes # (A) 3.1 k/uL (1.0-4.8); Lymphocytes % (A) 54 %; MCH 30.6 pg (25.0-35.0); MCHC 31.7 g/dL (31.0-37.0); MCV 96.7 fL (80.0-100.0); Mean Platelet Volume 8.7; Monocytes # (A) 0.4 k/uL (0-1.0); Monocytes % (A) 6 %; Neutrophils % (A) 35 %; Platelet Count 246 k/uL (150-450); RBC 3.86 m/uL (4.30-5.90); RDW 16.1 % (11.5-15.5); WBC 5.7 k/uL (3.8-10.6)
[2024-06-15 01:10] LABS: Glucose 93 mg/dL (74-99); Sodium 147 mmol/L (137-145)
[2024-06-15 01:11] LABS: ALT 17 U/L (4-49); African American GFR (CKD) >90 (>60 ml/min/1.73 sqM); Albumin 4.2 g/dL (3.5-5.0); Anion Gap 10 mmol/L; Blood Urea Nitrogen 14 mg/dL (9-20); Calcium 8.9 mg/dL (8.4-10.2); Carbon Dioxide 23 mmol/L (22-30); Chloride 114 mmol/L (98-107); Non-African American GFR(CKD) >90 (>60 ml/min/1.73 sqM); Total Bilirubin 0.5 mg/dL (0.2-1.3); Total Protein 7.8 g/dL (6.3-8.2)
[2024-06-15 01:20] LABS: AST 36 U/L (17-59); Alcohol 372 mg/dL; Alkaline Phosphatase 86 U/L (38-126); Magnesium 1.9 mg/dL (1.6-2.3); Phosphorus 3.8 mg/dL (2.5-4.5); Potassium 4.5 mmol/L (3.5-5.1)
[2024-06-15] MEDS: METOCLOPRAMIDE 5 MG/ML 2 ML VIAL IVP STA (05:13)
[2024-06-15] MEDS: NITROGLYCERIN SL TABS 0.4 MG TAB SUBLINGUAL STA (05:49)
[2024-06-15] MEDS: LORazepam 2 MG/ML INJ IV STA (05:50)
--- NOTE | 2024-06-15 05:50 | XR ---
EXAMINATION TYPE: XR chest 2V DATE OF EXAM: 06/15/2024 CLINICAL HISTORY: Chest pain TECHNIQUE: Frontal and lateral views of the chest are obtained. COMPARISON: Chest x-ray 1 week earlier. FINDINGS: Overlying sternal wires and mediastinal clips are redemonstrated. There is background emphy sematous change redemonstrated. There is no suspicious focal air space opacity, pleural effusion, or pneumothorax seen. The cardiac silhouette size is upper limits of normal currently. The osseous st ructures are intact. IMPRESSION: Chronic changes without acute pulmonary process. [facility], , 06/15/2024 5:47 AM
[2024-06-15] MEDS: SODIUM CHLORIDE 0.9% 1,000 ML IV STA (06:00)
[2024-06-15 06:15] LABS: Lipase 158 U/L (23-300)
[2024-06-15 06:25] LABS: NT-Pro-B-Type Natriuretic Pept 2480 pg/mL; Partial Thromboplastin Time 23.2 sec (22.0-30.0); Prothrombin Time 10.8 sec (10.0-12.5)
[2024-06-15] MEDS ORDERED: MORPHINE SULFATE 4 MG/ML SYRINGE IV PRN (06:55)
[2024-06-15] MEDS ORDERED: CALCIUM CARBONATE 500 MG CHEWABLE PO PRN (06:55)
[2024-06-15] MEDS ORDERED: ONDANSETRON 4 MG/2 ML VIAL IVP PRN (06:55)
[2024-06-15] MEDS ORDERED: MAG HYDROX/AL HYDROX/SIMETH 30 ML CUP PO PRN (06:55)
[2024-06-15] MEDS ORDERED: NALOXONE 0.4 MG/ML 1 ML VIAL IV PRN (06:55)
[2024-06-15] MEDS: ASPIRIN 81 MG PO STA (06:59)
[2024-06-15] MEDS: DULoxetine HCL 30 MG CAPSULE.DR PO SCH (08:49)
[2024-06-15] MEDS: AMIODARONE 200 MG TAB PO SCH (08:49)
[2024-06-15] MEDS: BUMETANIDE 1 MG TAB PO SCH (08:49)
[2024-06-15] MEDS: MULTIVITAMINS, THERA 1 EACH TAB PO SCH (08:49)
[2024-06-15] MEDS: ATORVASTATIN 40 MG TAB PO SCH (08:49)
[2024-06-15] MEDS: SACUBITRIL/VALSARTAN 24 MG-26 MG TABLET PO SCH (08:49)
[2024-06-15] MEDS: THIAMINE 100 MG TAB PO SCH (08:49)
[2024-06-15] MEDS: APIXABAN 2.5 MG TABLET PO SCH (08:49)
[2024-06-15] MEDS: METOPROLOL SUCCINATE (ER) 100 MG TAB.ER.24H PO SCH (08:49)
[2024-06-15] MEDS: DAPAGLIFLOZIN PROPANEDIOL 5 MG TABLET PO SCH (08:49)
[2024-06-15] MEDS: FAMOTIDINE 20 MG TAB PO SCH (08:49)
[2024-06-15] MEDS: PANTOPRAZOLE 40 MG TABLET PO SCH (08:49)
[2024-06-15] MEDS: allopurinoL 100 MG TAB PO SCH (08:49)
[2024-06-15] MEDS: CHOLECALCIFEROL 25 MCG (1000 IU) TABLET PO SCH (08:49)
[2024-06-15] MEDS: BIKTARVY PO SCH (08:50)
[2024-06-15] MEDS: PREZCOBIX PO SCH (08:50)
[2024-06-15] MEDS: FENOFIBRATE 54 MG TAB PO SCH (09:16)
--- NOTE | 2024-06-15 10:18 | P.HPIM ---
History of Present Illness H&P Date: 06/15/24 Chief Complaint: Anxiety and chest pain Patient is a 63-year-old male with a past medical history of atrial fibrillation on anticoagulation with Eliquis, chronic systolic heart failure with an EF of 35 to 40%, stable type A aortic dissection, alcohol abuse and HIV who is well-known to our service and has been admitted multiple times for alcohol withdrawal and was recently discharged on 06/11/2024. Patient states that recently the cardiothoracic surgeon at [facility] told him that he is not a candidate for surgery and that if he does get surgery he will and if he does not get surgery he will also . Patient states that he has been compensating by drinking. Today he called 911 because he wanted to talk to someone. The turkey egg gatherer was then dispatched to check up on him. When the turkey egg gatherer arrived to his house they spoke with his and offered patient to go to the hospital to get evaluated and the agreed. In the ED patient complained of chest pain. He was given sublingual nitro which helped with his chest pain. Patient denies suicidal idealization. was at bedside who also states that the patient is not suicidal. ROS: 10 ROS reviewed and are negative except as noted in HPI Physical exam General: [Alert and oriented, well nourished, no acute distress]. Eye: [PERRL, EOMI, normal conjunctiva]. HENT: [Normocephalic, clear tympanic membranes, normal hearing, moist oral mucosa, no scleral icterus, no sinus tenderness]. Neck: [Supple, non-tender, no carotid bruits, no JVD, no lymphadenopathy]. Lungs: [Clear to auscultation and percussion, non-labored respiration]. Heart: [Normal rate, regular rhythm, no murmur, gallop or edema]. Abdomen: [Soft, non-tender, non-distended, normal bowel sounds, no masses]. Musculoskeletal: [Normal range of motion and strength, no tenderness or sw elling]. Skin: [Skin is warm, dry and pink, no rashes or lesions]. Neurologic: [Awake, alert, and oriented X3, CN II-XII intact]. Psychiatric: [Patient appears anxious and tremulous. Assessment and plan Acute on chronic depression and anxiety Alcohol abuse Continue with psych meds recommended from previous admission by psychiatry Annalkirsten 30 mg p.o. daily, Remeron 7.5 mg p.o. at bedtime Will consult psychiatry I discussed with the patient that he may need to go voluntarily to an inpatient rehab for his alcohol abuse. Patient states that he has tried that in the past and it did not work. Patient states that he is not able to go to an Alcohol Anonymous group because of transport issues. Chest pain likely due to anxiety Troponin negative x 2 Consult cardiology IV morphine 2 mg every 3 hours as needed for pain I reviewed EKG from this morning that shows according to my independent interpretation normal sinus rhythm without any ischemic changes Alcohol withdrawal Patient's alcohol level 372 on arrival. This morning patient appears to be in withdrawal Will start CIWA protocol Atrial fibrillation Continue with amiodarone 200 mg p.o. twice daily Continue with Eliquis 2.5 mg p.o. twice daily Continue with metoprolol succinate 100 mg p.o. daily Chronic systolic heart failure Continue with Entresto 1 tab p.o. twice daily, continue with beta-trish, continue with Bumex 1 mg p.o. twice daily, continue with Farxiga 5 mg p.o. daily, continue with atorvastatin 40 mg p.o. daily Type a aortic dissection Stable HIV Continue with Biktarvy 1 tab p.o. daily and Prezcobix 1 tab p.o. daily DVT prophylaxis: Eliquis 2.5 mg p.o. twice daily Past Medical History Past Medical History: Atrial Fibrillation, Asthma, Heart Failure, Fibromyalgia, GERD/Reflux, Hypertension, Prostate Disorder Additional Past Medical History / Comment(s): Mitral valve disease w/ MV repair at [facility] 2000, HIV positive, past HTN and recently low blood pressures, BPH, R ankle gout, chronic nausea, bilateral glaucoma, chronic pain syndrome, chronic low back and bilateral hip pain and occasional cervical pain, DDD, lumbar stenosis/spondylosis, abdominal hernia, previous history of drug overdose. PTSD History of Any Multi-Drug Resistant Organisms: None Reported Past Surgical History: Heart Catheterization, Hernia Repair Additional Past Surgical History / Comment(s): Mitral valve repair at [facility] (2000), Type A aortic disection repordedly treated conservatively by [facility], R inguinal hernia x2, L inguinal hernia, epidural injections to back, hip injections, RFAs, spinal cord stimulator trial-removed, Past Anesthesia/Blood Transfusion Reactions: No Reported Reaction Past Psychological History: Anxiety, Depression, PTSD Smoking Status: Former smoker Past Alcohol Use History: Abuse, Daily Past Drug Use History: Prescription Drug Abuse - Past Family History Father History Unknown: Yes Additional Family Medical History / Comment(s): Father was injured at work and of complication during his hospitalization. Mother Additional Family Medical History / Comment(s): Mother is from alcoholism. Brother(s) Additional Family Medical History / Comment(s): alcohol and HF Medications and Allergies Home Medications Medication Instructions Recorded Confirmed Type Bictegrav/Emtricit/Tenofov Ala 1 tab PO DAILY 09/07/21 06/08/24 History [Biktarvy 50-200-25 mg Tablet] Darunavir/Cobicistat [Prezcobix 1 tab PO DAILY 09/07/22 06/08/24 History 800 mg-150 mg Tablet] Albuterol Sulfate [Albuterol 2 puff INHALATION RT-QID PRN 12/27/23 06/08/24 History Sulfate Hfa] Empagliflozin [Jardiance] 10 mg PO DAILY 12/27/23 06/08/24 History Sacubitril/Valsartan [Entresto 24 1 tab PO BID 12/27/23 06/08/24 History mg-26 mg Tablet] Fenofibrate Nanocrystallized 48 mg PO DAILY 03/17/24 06/08/24 History [Fenofibrate] Levothyroxine Sodium 200 mcg PO DAILY 03/17/24 06/08/24 History oxyCODONE-APAP 10-325MG [Percocet 1 tab PO Q6HR PRN 3 Days #12 tab 03/20/24 06/08/24 Rx 10-325 mg] Apixaban [Eliquis] 2.5 mg PO BID 04/03/24 06/08/24 History Bimatoprost [Lumigan 0.01% Ophth 1 drop BOTH EYES HS 04/03/24 06/08/24 History Soln] allopurinoL 100 mg PO DAILY 04/03/24 06/08/24 History Thiamine [Vitamin B-1] 100 mg PO DAILY 30 Days #30 tab 04/28/24 06/08/24 Rx Amiodarone [Cordarone] 200 mg PO BID 05/23/24 06/08/24 History Cholecalciferol [Vitamin D3 (25 25 mcg PO DAILY 05/23/24 06/08/24 History Mcg = 1000 Iu)] Lidocaine 5% Patch [Lidoderm 5% 1 patch TOPICAL DAILY 05/23/24 06/08/24 History Patch] Mirtazapine 7.5 mg PO HS 05/23/24 06/08/24 History Multivitamins, Thera [Multivitamin 1 tab PO DAILY 05/23/24 06/08/24 History (formulary)] Omeprazole [PriLOSEC] 40 mg PO DAILY 05/23/24 06/08/24 History Rosuvastatin [Crestor] 20 mg PO DAILY 05/23/24 06/08/24 History DULoxetine HCL [Cymbalta] 30 mg PO DAILY #60 cap 05/24/24 06/08/24 Rx Capsaicin Cream [Trixaicin Cream] 1 applic TOPICAL QID 05/31/24 06/08/24 History Metoprolol Succinate (ER) [Toprol 100 mg PO DAILY 06/06/24 06/08/24 History XL] Bumetanide [BUMEX] 1 mg PO BID #0 06/11/24 06/08/24 Rx Allergies Allergy/AdvReac Type Severity Reaction Status Date / Time abacavir [From Ziagen] Allergy Anaphylaxis Verified 06/14/24 23:35 efavirenz [From Sustiva] Allergy Anaphylaxis Verified 06/14/24 23:35 levofloxacin Allergy Itching Verified 06/14/24 23:35 hydrocodone AdvReac Rapid Verified 06/14/24 23:35 [From Hysingla ER] Heart Rate morphine AdvReac Itching Verified 06/14/24 23:35 sulfamethoxazole AdvReac HIGH Verified 06/14/24 23:35 [From Bactrim] CREATININE LEVEL trimethoprim [From Bactrim] AdvReac HIGH Verified 06/14/24 23:35 CREATININE Physical Exam Osteopathic Statement: *. No significant issues noted on an osteopathic structural exam other than those noted in the History and Physical/Consult. Vitals: Vital Signs Temp Pulse Resp BP Pulse Ox 06/15/24 08:46 113 H 18 134/94 96 06/15/24 04:00 91 18 157/77 97 06/15/24 01:36 87 18 119/95 97 06/14/24 23:28 98.3 F 90 18 133/67 97 Intake and Output 06/14/24 06/15/24 06/15/24 22:59 06:59 14:59 Other: Weight 77.111 kg Results CBC & Chem 7: 06/14/24 23:39 06/14/24 23:39 Labs: Abnormal Lab Results - Last 24 Hours (Table) 06/14/24 06/14/24 Range/Units 23:39 23:39 RBC 3.86 L (4.30-5.90) m/uL Hgb 11.8 L (13.0-17.5) gm/dL Hct 37.4 L (39.0-53.0) % RDW 16.1 H (11.5-15.5) % Sodium 147 H (137-145) mmol/L Chloride 114 H (98-107) mmol/L Serum Alcohol 372 H* mg/dL
[2024-06-15] MEDS: LORazepam 1 MG TAB PO PRN ×2 (10:31→14:11)
--- NOTE | 2024-06-15 15:12 | P.CRDCN ---
History of Present Illness Consult date: 06/15/24 Consult reason: congestive heart failure History of present illness: The patient is a 63-year-old male who presented to the hospital with chest di scomfort. He had a similar admission approximately 1 month ago where he presented with chest pain at the time of alcohol withdrawal. On arrival serum alcohol level is elevated and he continues to report generalized weakness and fatigue in addition to a shortness of breath and chest discomfort. DIAGNOSTICS: EKG shows sinus rhythm with IVCD Chest x-ray shows no acute cardiopulmonary process Previous echocardiogram in April 2024 shows LV function at 35% with biatrial dilatation, moderate mitral regurgitation and moderate to severe aortic regurgitation Lab data: WBC 5.7, hemoglobin 11.8, hematocrit 37.4, platelet 246, sodium 147, potassium 4.5, BUN 14, creatinine 0.83, magnesium 1.9, AST 36, ALT 17, troponin 0.01, BNP 2480, serum alcohol 372 REVIEW OF SYSTEMS: No fever or chills. No cough or expectoration. No diaphoresis. Patient denies headache, dizziness, blurred vision, double vision. Patient denies any stomach discomfort. No nausea, vomiting. No hematochezia. No hematemesis. Denies any black stools or blood in his stools. Denies dysuria or hematuria. No muscle weakness or numbness. PHYSICAL EXAMINATION: This is a 63-year-old male in mild distress at the time of my examination. Anxious. HEENT: Head is atraumatic, normocephalic. Pupils are equal, round. There is no jugular venous distention. No carotid bruit is heard. CHEST EXAMINATION: Lungs are diminished to auscultation. No chest wall tenderness is noted on palpation or with deep breathing. HEART EXAMINATION: Heart regular rate and rhythm. S1, S2 heard. No murmurs, gallops or rub. ABDOMEN: Distended, nontender. Bowel sounds are heard. EXTREMITIES: 2+ peripheral pulses with no evidence of peripheral edema and no calf tenderness noted. NEUROLOGIC EXAMINATION: Patient is awake, alert and oriented x3. FINAL ASSESSMENT AND PLAN: Chest discomfort, flat troponins and no EKG changes Congestive heart failure, systolic Dilated cardiomyopathy with global hypokinesis, likely alcohol induced Alcohol intoxication History of atrial fibrillation PLAN: Resume home cardiac medications Monitor for arrhythmias while undergoing withdrawal Complete alcohol cessation discussed with patient No further recommendations from the cardiac standpoint. Thank you kindly for this consultation. I am dictating on behalf of Dr Isaac Donnelly's history/physical and assessment/plan. Past Medical History Past Medical History: Atrial Fibrillation, Asthma, Heart Failure, Fibromyalgia, GERD/Reflux, Hypertension, Prostate Disorder Additional Past Medical History / Comment(s): Mitral valve disease w/ MV repair at [facility] 2000, HIV positive, past HTN and recently low blood pressures, BPH, R ankle gout, chronic nausea, bilateral glaucoma, chronic pain syndrome, chronic low back and bilateral hip pain and occasional cervical pain, DDD, lumbar stenosis/spondylosis, abdominal hernia, previous history of drug overdose. PTSD History of Any Multi-Drug Resistant Organisms: None Reported Past Surgical History: Heart Catheterization, Hernia Repair Additional Past Surgical History / Comment(s): Mitral valve repair at [facility] (2000), Type A aortic disection repordedly treated conservatively by [facility], R inguinal hernia x2, L inguinal hernia, epidural injections to back, hip injections, RFAs, spinal cord stimulator trial-removed, Past Anesthesia/Blood Transfusion Reactions: No Reported Reaction Past Psychological History: Anxiety, Depression, PTSD Smoking Status: Former smoker Past Alcohol Use History: Abuse, Daily Past Drug Use History: Prescription Drug Abuse - Past Family History Father History Unknown: Yes Additional Family Medical History / Comment(s): Father was injured at work and of complication during his hospitalization. Mother Additional Family Medical History / Comment(s): Mother is from alcoholism. Brother(s) Additional Family Medical History / Comment(s): alcohol and HF Medications and Allergies Home Medications Medication Instructions Recorded Confirmed Type Bictegrav/Emtricit/Tenofov Ala 1 tab PO DAILY 09/07/21 06/15/24 History [Biktarvy 50-200-25 mg Tablet] Darunavir/Cobicistat [Prezcobix 1 tab PO DAILY 09/07/22 06/15/24 History 800 mg-150 mg Tablet] Albuterol Sulfate [Albuterol 2 puff INHALATION RT-QID PRN 12/27/23 06/15/24 History Sulfate Hfa] Empagliflozin [Jardiance] 10 mg PO DAILY 12/27/23 06/15/24 History Sacubitril/Valsartan [Entresto 24 1 tab PO BID 12/27/23 06/15/24 History mg-26 mg Tablet] Fenofibrate Nanocrystallized 48 mg PO DAILY 03/17/24 06/15/24 History [Fenofibrate] Levothyroxine Sodium 200 mcg PO DAILY 03/17/24 06/15/24 History oxyCODONE-APAP 10-325MG [Percocet 1 tab PO Q6HR PRN 3 Days #12 tab 03/20/24 06/15/24 Rx 10-325 mg] Apixaban [Eliquis] 2.5 mg PO BID 04/03/24 06/15/24 History Bimatoprost [Lumigan 0.01% Ophth 1 drop BOTH EYES HS 04/03/24 06/15/24 History Soln] allopurinoL 100 mg PO DAILY 04/03/24 06/15/24 History Thiamine [Vitamin B-1] 100 mg PO DAILY 30 Days #30 tab 04/28/24 06/15/24 Rx Amiodarone [Cordarone] 200 mg PO BID 05/23/24 06/15/24 History Cholecalciferol [Vitamin D3 (25 25 mcg PO DAILY 05/23/24 06/15/24 History Mcg = 1000 Iu)] Lidocaine 5% Patch [Lidoderm 5% 1 patch TRANSDERM DAILY 05/23/24 06/15/24 H istory Patch] Mirtazapine 7.5 mg PO HS 05/23/24 06/15/24 History Multivitamins, Thera [Multivitamin 1 tab PO DAILY 05/23/24 06/15/24 History (formulary)] Omeprazole [PriLOSEC] 40 mg PO DAILY 05/23/24 06/15/24 History Rosuvastatin [Crestor] 20 mg PO DAILY 05/23/24 06/15/24 History DULoxetine HCL [Cymbalta] 30 mg PO DAILY #60 cap 05/24/24 06/15/24 Rx Capsaicin Cream [Trixaicin Cream] 1 applic TOPICAL QID 05/31/24 06/15/24 History Metoprolol Succinate (ER) [Toprol 100 mg PO DAILY 06/06/24 06/15/24 History XL] Bumetanide [BUMEX] 1 mg PO BID #0 06/11/24 06/15/24 Rx Allergies Allergy/AdvReac Type Severity Reaction Status Date / Time abacavir [From Ziagen] Allergy Anaphylaxis Verified 06/15/24 11:15 efavirenz [From Sustiva] Allergy Anaphylaxis Verified 06/15/24 11:15 levofloxacin Allergy Itching Verified 06/15/24 11:15 hydrocodone AdvReac Rapid Verified 06/15/24 11:15 [From Hysingla ER] Heart Rate morphine AdvReac Itching Verified 06/15/24 11:15 sulfamethoxazole AdvReac HIGH Verified 06/15/24 11:15 [From Bactrim] CREATININE LEVEL trimethoprim [From Bactrim] AdvReac HIGH Verified 06/15/24 11:15 CREATININE Physical Exam Vitals: Vital Signs Temp Pulse Resp BP Pulse Ox 06/15/24 08:46 113 H 18 134/94 96 06/15/24 04:00 91 18 157/77 97 06/15/24 01:36 87 18 119/95 97 06/14/24 23:28 98.3 F 90 18 133/67 97 Intake and Output 06/14/24 06/15/24 06/15/24 22:59 06:59 14:59 Other: Weight 77.111 kg Results 06/14/24 23:39 06/14/24 23:39 Cardiac Enzymes 06/14/24 06/15/24 06/15/24 Range/Units 23:39 05:09 08:18 AST 36 (17-59) U/L Troponin I <0.012 0.017 (0.000-0.034) ng/mL Coagulation 06/15/24 Range/Units 05:54 PT 10.8 (10.0-12.5) sec APTT 23.2 (22.0-30.0) sec CBC 06/14/24 Range/Units 23:39 WBC 5.7 (3.8-10.6) k/uL RBC 3.86 L (4.30-5.90) m/uL Hgb 11.8 L (13.0-17.5) gm/dL Hct 37.4 L (39.0-53.0) % Plt Count 246 (150-450) k/uL Comprehensive Metabolic Panel 06/14/24 Range/Units 23:39 Sodium 147 H (137-145) mmol/L Potassium 4.5 (3.5-5.1) mmol/L Chloride 114 H (98-107) mmol/L Carbon Dioxide 23 (22-30) mmol/L BUN 14 (9-20) mg/dL Creatinine 0.83 (0.66-1.25) mg/dL Glucose 93 (74-99) mg/dL Calcium 8.9 (8.4-10.2) mg/dL AST 36 (17-59) U/L ALT 17 (4-49) U/L Alkaline Phosphatase 86 (38-126) U/L Total Protein 7.8 (6.3-8.2) g/dL Albumin 4.2 (3.5-5.0) g/dL Current Medications Generic Name Dose Route Start Last Admin Trade Name Freq PRN Reason Stop Dose Admin Acetaminophen 650 mg 06/15/24 06:55 Acetaminophen Tab 325 Mg Tab PO Q6HR PRN Mild Pain or Fever > 100.5 Al Hydroxide/Mg Hydroxide 15 ml 06/15/24 06:55 Mag Hydrox/Al Hydrox/Simeth 30 Ml Cup PO Q6HR PRN Indigestion Albuterol Sulfate 2.5 mg 06/15/24 08:24 Albuterol Nebulized 2.5 Mg/3 Ml INHALATION RT-QID PRN Shortness Of Breath Allopurinol 100 mg 06/15/24 09:00 06/15/24 08:49 Allopurinol 100 Mg Tab PO 100 mg DAILY ALEX Administration Amiodarone HCl 200 mg 06/15/24 09:00 06/15/24 08:49 Amiodarone 200 Mg Tab PO 200 mg BID ALEX Administration Apixaban 2.5 mg 06/15/24 09:00 06/15/24 08:49 Apixaban 2.5 Mg Tablet PO 2.5 mg BID ALEX Administration Protocol Atorvastatin Calcium 40 mg 06/15/24 09:00 06/15/24 08:49 Atorvastatin 40 Mg Tab PO 40 mg DAILY ALEX Administration Bumetanide 1 mg 06/15/24 09:00 06/15/24 08:49 Bumetanide 1 Mg Tab PO 1 mg BID ALEX Administration Calcium Carbonate/Glycine 1,000 mg 06/15/24 06:55 Calcium Carbonate 500 Mg Chewable PO Q4HR PRN Dyspepsia Cholecalciferol 25 mcg 06/15/24 09:00 06/15/24 08:49 Cholecalciferol 25 Mcg (1000 Iu) Tablet PO 25 mcg DAILY ALEX Administration Dapagliflozin 5 mg 06/15/24 09:00 06/15/24 08:49 Dapagliflozin Propanediol 5 Mg Tablet PO 5 mg DAILY ALEX Administration Duloxetine HCl 30 mg 06/15/24 09:00 06/15/24 08:49 Duloxetine Hcl 30 Mg Capsule.Dr PO 30 mg DAILY ALEX Administration Famotidine 20 mg 06/15/24 09:00 06/15/24 08:49 Famotidine 20 Mg Tab PO 20 mg BID ALEX Administration Fenofibrate 54 mg 06/15/24 09:00 06/15/24 09:16 Fenofibrate 54 Mg Tab PO 54 mg DAILY ALEX Administration Latanoprost 1 drops 06/15/24 21:00 Latanoprost 0.005% Ophth Drops 2.5 Ml Btl BOTH EYES HS ALEX Levothyroxine Sodium 200 mcg 06/16/24 06:30 Levothyroxine 100 Mcg Tab [place] 0630 ALEX Lorazepam 0.5 mg 06/15/24 10:02 Lorazepam 0.5 Mg Tab PO Q4HR PRN Ciwa 4 To 5 Lorazepam 1 mg 06/15/24 10:02 06/15/24 10:31 Lorazepam 1 Mg Tab PO 1 mg Q4HR PRN Administration Ciwa 6 To 7 Lorazepam 2 mg 06/15/24 10:02 Lorazepam 1 Mg Tab PO Q2HR PRN Ciwa 10 or greater Metoprolol Succinate 100 mg 06/15/24 09:00 06/15/24 08:49 Metoprolol Succinate (Er) 100 Mg Tab.Er.24h PO 100 mg DAILY ALEX Administration Mirtazapine 7.5 mg 06/15/24 21:00 Mirtazapine 15 Mg Tab PO HS ALEX Morphine Sulfate 2 mg 06/15/24 10:02 Morphine Sulfate 2 Mg/Ml Syringe IV Q4HR PRN Severe Pain (Scale 7 to 10) Multivitamins 1 each 06/15/24 09:00 06/15/24 08:49 Multivitamins, Thera 1 Each Tab PO 1 each DAILY ALEX Administration Naloxone HCl 0.2 mg 06/15/24 06:55 Naloxone 0.4 Mg/Ml 1 Ml Vial IV Q2M PRN Opioid Reversal Biktarvy (Bictegrav/ 1 tab 06/15/24 09:00 06/15/24 08:50 Emtricit/Tenofov 50- PO Not Given 200-25 Mg] Tablet DAILY ALEX Prezcobix [Darunavir 1 tab 06/15/24 09:00 06/15/24 08:50 /Cobicistat] 800 Mg- PO Not Given 150 Mg Tablet DAILY ALEX Ondansetron HCl 4 mg 06/15/24 06:55 Ondansetron 4 Mg/2 Ml Vial IVP Q8HR PRN Nausea And Vomiting Pantoprazole Sodium 40 mg 06/15/24 09:00 06/15/24 08:49 Pantoprazole 40 Mg Tablet PO 40 mg DAILY ALEX Administration Sacubitril/Valsartan 1 each 06/15/24 09:00 06/15/24 08:49 Sacubitril/Valsartan 24 Mg-26 Mg Tablet PO 1 each BID ALEX Administration Thiamine HCl 100 mg 06/15/24 09:00 06/15/24 08:49 Thiamine 100 Mg Tab PO 100 mg DAILY ALEX Administration Intake and Output 06/14/24 06/15/24 06/15/24 22:59 06:59 14:59 Other: Weight 77.111 kg 06/14/24 23:39 06/14/24 23:39
[2024-06-15] MEDS: PROCHLORPERAZINE INJ 10 MG/2 ML VIAL IVP PRN (18:20)
[2024-06-15] MEDS: MIRTAZAPINE 15 MG TAB PO SCH (20:45)
[2024-06-15] MEDS: LATANOPROST 0.005% OPHTH DROPS 2.5 ML BTL BOTH EYES SCH (20:45)
[2024-06-16] MEDS: LEVOTHYROXINE 100 MCG TAB PO SCH (06:37)
[2024-06-16] MEDS: FOLIC ACID 1 MG TAB PO SCH (09:29)
[2024-06-16] MEDS: PREZCOBIX PO SCH (13:07)
[2024-06-16] MEDS: LOPERAMIDE 2 MG CAP PO PRN (13:07)
--- NOTE | 2024-06-16 15:41 | P.CN ---
Psychiatric Consult - . 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 REASON FOR REFERRAL: Psychiatry was consulted for anxiety, depression, and alcohol abuse HISTORY OF PRESENT ILLNESS: The patient presented to the hospital for anxiety, per report the patient was told on Sunday by his cardiothoracic surgeon at [facility] that he was not a candidate for cardiac surgery, he reported that he will not live if he undergoes the surgery and will not live if he does not get surgery. Patient reported that he has been having difficulty coping, and has been coping with his using alcohol. He reported that he drinks heavily, it is reported that patient was recently discharged and 06/11/2024 after being hospitalized for alcohol withdrawal, he has a reported history of multiple hospitalization related to alcohol use disorder. Patient called 911 and asked for help, the patient was at bedside and reported that patient is not suicidal. The patient was seen in his room, he reported that he has been under a lot of stress lately related to his general medical condition, reported that he was just told about cannot have the cardiac surgery due to his general condition. States that he has some difficulty coping and has been using alcohol heavily lately. He states that has been difficulty coping with that news however reported that he wanted to do therapy, reported that he got scheduled with [facility] and reported that he is supposed to see them today, reported that he called to reschedule. Reported feeling a little hopeless for a long time however reported that his and his nephew have been very supportive and he wanted to be home with them. He denied any current suicidal, self-harm or homicidal thoughts or behavior, intention or plan. Patient denies any auditory, visual hallucinations and denies any paranoia or delusions denied any manic or hypomanic symptoms. States that he will be safe at home and reported that he was told that he will have a nurse coming to check on him at home. Patient states that he was prescribed Cymbalta and has been taking it for about a week now and reported he feels fine with it, reported that he was on Lexapro for 2 years and reported that it was not helping. He states that he tried different psychotropic medication in the past however feels like Cymbalta is being helpful. PAST PSYCHIATRIC HISTORY: Patient has a a history of major depression, alcohol use disorder, KEO, and suicidal attempt via overdose in the past, he was hospitalized once at [facility] unit last April following an overdose on metoprolol, he was started on Cymbalta 30 mg daily however was experiencing adverse effects including mental fogginess and thus this was discontinued and he was started on Lexapro 10 mg. Patient reported that he went back on Cymbalta afterward and he has been taking it for a week. He reported being on different psychotropic medication in the past. Patient reported that he tried to overdose last April however elaborate that was an impulsive action when he was drinking too much alcohol. PAST MEDICAL HISTORY: Past Medical History: Atrial Fibrillation, Asthma, Heart Failure, Fibromyalgia, GERD/Reflux, Hypertension, Prostate Disorder Additional Past Medical History / Comment(s): Mitral valve disease w/ MV repair at [facility] 2000, HIV positive, past HTN and recently low blood pressures, BPH, R ankle gout, chronic nausea, bilateral glaucoma, chronic pain syndrome, chronic low back and bilateral hip pain and occasional cervical pain, DDD, lumbar stenosis/spondylosis, abdominal hernia, previous history of drug overdose. PTSD History of Any Multi-Drug Resistant Organisms: None Reported Past Surgical History: Heart Catheterization, Hernia Repair Additional Past Surgical History / Comment(s): Mitral valve repair at [facility] (2000), Type A aortic disection repordedly treated conservatively by [facility], R inguinal hernia x2, L inguinal hernia, epidural injections to back, hip injections, RFAs, spinal cord stimulator trial-removed, Past Anesthesia/Blood Transfusion Reactions: No Reported Reaction Past Psychological History: Anxiety, Depression, PTSD Smoking Status: Former smoker Past Alcohol Use History: Abuse, Daily Past Drug Use History: Prescription Drug Abuse ALLERGIES: as per EMR. CHEMICAL DEPENDENCY HISTORY: as per HPI. FAMILY PSYCHIATRIC/SUBSTANCE USE HISTORY: Both parents and multiple family member has alcohol use disorder. Report patient mother is from alcoholism. 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 Dropped out at 10th grade MENTAL STATUS EXAM: General Appearance: Patient appears to be older than stated age, is alert, directable, and attempts to cooperate. Patient appears to have fair hygiene and grooming. Patient has short dykes hair Behavior: Patient is laying down in his bed without any agitated behavior. Speech: Patient's speech is fluent and nonpressured. Mood/Affect: Patient reports their mood is "fine", affect is congruent and constricted. Suicidality/Homicidality: Patient denies having any homicidal ideation intent or plan. Denies any suicidal ideations intent or plan Perceptions: Patient denies any visual hallucinations and denies any auditory hallucinations Though content/process: There is no evidence of any delusional thought content and thought process is linear, logical and goal oriented Memory and concentration: AOX3, grossly intact for the purposes of this session. Can spell "WORLD" backwards Judgment and insight: Fair IMPRESSIONS: -Adjustment disorder, with depressed and anxious mood -History of major depressive disorder, recurrent, moderate -Alcohol use disorder, severe -Anxiety disorder, unspecified, most likely related to general medical condition PLAN: -At this time patient DOES NOT meet criteria for inpatient psychiatric admission. -Would recommend to continue with his current medication without any changes including Cymbalta 30 mg p.o. daily, and Remeron 7.5 mg p.o. hs -dyehouse worker to provide patient with outpatient mental health/psychiatry resources for appropriate follow up upon discharge, patient reported he has an appointment made with [facility] that was scheduled for today, social services analyst reported that they well help with rescheduling his appointment. -Manager Video spoke with patient about substance abuse including alcohol, and cannabis and the harmful effects on medical and mental health, patient verbally underst ood and agreed. -dyehouse worker to provide patient substance use treatment resources including AA/NA meetings in the community. -dyehouse worker to provide patient with access line number to call for inpatient substance rehab -Communicated plan to patient's nurse -Psychiatry will sign off at this time -Please contact with any questions. 06/16/24 15:16 06/16/24 15:41
--- NOTE | 2024-06-16 17:47 | P.PN ---
Subjective Progress Note Date: 06/16/24 Hospital Course: A 63-year-old male with PMH of A-fib on Eliquis, chronic systolic heart failure EF 35 to 40%, stable type a aortic dissection, alcohol abuse, HIV on antiretroviral therapy, multiple admissions for alcohol withdrawal, recently discharged on 06/11/2024. Patient stated that he was recently at [facility] evaluated by cardiothoracic surgery and was deemed to be not a candidate for saleem ranjeet and that if he does not get surgery he will and if he does get surgery he will also , patient has been compensating by drinking and eventually called 911 to talk to someone, was sent to evaluate the patient and offered him to go to the hospital. Patient was admitted for management of acute on chronic depression and anxiety, alcohol withdrawal, he was also complaining of chest pain, cardiology consulted, no further workup warranted, patient's troponin's were negative x 2, EKG showed no ischemic changes Subjective: Seen and examined at bedside, was complaining of stomach upset, diarrhea, shaking Pertinent positives and negatives as discussed above, a complete review of systems was performed and all other systems are negative. Vitals Signs Reviewed. General: [nontoxic], [no distress], [appears at stated age] Derm: [warm], [dry] Head: [atraumatic], [normocephalic], [symmetric] Eyes: [EOMI], [no lid lag], [anicteric sclera] Mouth: [no lip lesion], [mucus membranes moist] Cardiovascular: [S1S2 reg], [no murmur] Lungs: [CTA bilateral], [no rhonchi, no rales] , [no accessory muscle use] Abdominal: [soft], [ nontender to palpation], [no guarding], [no appreciable organomegaly] Ext: [no gross muscle atrophy], [no edema], [no contractures] Neuro: [ CN II-XI grossly intact], [no focal neuro deficits] Psych: [Alert], [oriented], [appropriate affect] Data Reviewed Today: Reviewed lab work from previous days hemoglobin of 11.8 on 06/14, increased sodium 147, normal creatinine, increased alcohol level, repeat blood work ordered Assessment and Plan: Acute on chronic depression and anxiety Alcohol abuse Continue with psych meds recommended from previous admission by psychiatry Cymbalta 30 mg p.o. daily, Remeron 7.5 mg p.o. at bedtime -Not a candidate for inpatient psych, continue current medications per psychiatry, social work following, psychiatry signed off Chest pain likely due to anxiety Troponin negative x 2 Consult cardiology:no interventions IV morphine 2 mg every 3 hours as needed for pain Alcohol withdrawal Patient's alcohol level 372 on arrival. This morning patient appears to be in withdrawal continue CIWA protocol, multivitamins Chronic diarrhea -Patient states he is on Imodium once daily at home, resume; no associated abdominal pain reported Atrial fibrillation Continue with amiodarone 200 mg p.o. twice daily Continue with Eliquis 2.5 mg p.o. twice daily Continue with metoprolol succinate 100 mg p.o. daily Chronic systolic heart failure Continue with Entresto 1 tab p.o. twice daily, continue with beta-trish, continue with Bumex 1 mg p.o. twice daily, continue with Farxiga 5 mg p.o. daily, continue with atorvastatin 40 mg p.o. daily Type a aortic dissection Stable HIV Continue with Biktarvy 1 tab p.o. daily and Prezcobix 1 tab p.o. daily DVT prophylaxis: Eliquis 2.5 mg p.o. twice daily Anticipated discharge [facility] Anticipated discharge time: [48 hours Objective - Vital Signs Vital signs: Vital Signs Temp 97.8 F 06/16/24 14:37 Pulse 77 06/16/24 14:37 Resp 16 06/16/24 14:37 BP 138/71 06/16/24 14:37 Pulse Ox 98 06/16/24 14:37 FiO2 Intake & Output 06/15/24 06/16/24 06/16/24 18:59 06:59 18:59 Intake Total 236 Balance 236 Weight 77.111 kg Intake: Oral 236 Other: Voiding Method Urinal Toilet Urinal # Voids 1 3 - Labs CBC & Chem 7: 06/14/24 23:39 06/14/24 23:39
[2024-06-17 02:14] LABS: Basophils # (A) 0.04 X 10*3/uL (0.00-0.10); Eosinophils # (A) 0.06 X 10*3/uL (0.04-0.35); Eosinophils % (A) 1.5 %; HGB 13.7 g/dL (13.0-17.0); Lymphocytes # (A) 1.38 X 10*3/uL (0.90-5.00); Lymphocytes % (A) 34.8 %; MCH 30.3 pg (27.0-32.0); MCHC 32.6 g/dL (32.0-37.0); MCV 92.9 FL (80.0-97.0); Mean Platelet Volume 11.3 FL (9.5-12.2); Monocytes # (A) 0.57 X 10*3/uL (0.20-1.00); Monocytes % (A) 14.4 %; NRBC Per 100 WBC 0 X 10*3/uL (0.00-0.01); Neutrophils % (A) 47.8 %; Platelet Count 252 X 10*3/uL (140-440); RBC 4.52 X 10*6/uL (4.40-5.60); RDW 16.1 % (11.5-14.5); WBC 3.97 X 10*3/uL (4.50-10.00)
[2024-06-17 02:23] LABS: BUN/Creat Ratio 15.08 Ratio (12.00-20.00); Blood Urea Nitrogen 18.1 mg/dL (9.0-27.0); Calcium 8.7 mg/dL (8.7-10.3); Carbon Dioxide 22.1 mmol/L (21.6-31.8); Chloride 104 mmol/L (96-109); Glucose 141 mg/dL (70-110); Potassium 3.8 mmol/L (3.5-5.5); Sodium 142 mmol/L (135-145)
--- NOTE | 2024-06-17 12:11 | P.PN ---
Subjective Progress Note Date: 06/17/24 Hospital Course: A 63-year-old male with PMH of A-fib on Eliquis, chronic systolic heart failure EF 35 to 40%, stable type a aortic dissection, alcohol abuse, HIV on antiretroviral therapy, multiple admissions for alcohol withdrawal, recently discharged on 06/11/2024. Patient stated that he was recently at [facility] evaluated by cardiothoracic surgery and was deemed to be not a candidate for irizarry rgery and that if he does not get surgery he will and if he does get surgery he will also , patient has been compensating by drinking and eventually called 911 to talk to someone, Rules Examiner was sent to evaluate the patient and offered him to go to the hospital. Patient was admitted for management of acute on chronic depression and anxiety, alcohol withdrawal, he was also complaining of chest pain, cardiology consulted, no further workup warranted, patient's troponin's were negative x 2, EKG showed no ischemic changes. 06/16 overnight patient had a good restful sleep and did not require any Ativan, however, 06/17 afternoon he started scoring CIWA of 12. Can be considered for discharge on 06/18 Subjective: Seen and examined at bedside this morning, he has good appetite, had a good restful sleep overnight, complains of noticeable shaking, some nausea, no vomiting, his diarrhea has resolved with loperamide. He rates his anxiety as 7 out of 10. He states that he ambulated well in the hallway without significant issues besides some mild discomfort from his known gout that is not in flare right now Pertinent positives and negatives as discussed above, a complete review of sy stems was performed and all other systems are negative. Vitals Signs Reviewed. General: [nontoxic], [no distress], [appears at stated age] Derm: [warm], [dry] Head: [atraumatic], [normocephalic], [symmetric] Eyes: [EOMI], [no lid lag], [anicteric sclera] Mouth: [no lip lesion], [mucus membranes moist] Cardiovascular: [S1S2 reg], [no murmur] Lungs: [CTA bilateral], [no rhonchi, no rales] , [no accessory muscle use] Abdominal: [soft], [ nontender to palpation], [no guarding], [no appreciable o rganomegaly] Ext: [no gross muscle atrophy], [no edema], [no contractures] Neuro: [ CN II-XI grossly intact], [no focal neuro deficits], bilateral arm tremor Psych: [Alert], [oriented], [appropriate affect] Data Reviewed Today: Pertinent Labs: Blood work from 06/16 p.m.: Mild leukopenia at 3.97, normal hemoglobin and platelets, sodium, potassium, chloride WNL, normal creatinine Assessment and Plan: Acute on chronic depression and anxiety Alcohol abuse Continue with psych meds recommended from previous admission by psychiatry Cymbalta 30 mg p.o. daily, Remeron 7.5 mg p.o. at bedtime -Not a candidate for inpatient psych, continue current medications per psychiatry, social work following, psychiatry signed off Chest pain likely due to anxiety Troponin negative x 2 Consult cardiology:no interventions IV morphine 2 mg every 3 hours as needed for pain Alcohol withdrawal Patient's alcohol level 372 on arrival. This morning patient appears to be in withdrawal continue CIWA protocol, multivitamins Chronic diarrhea -Patient states he is on Imodium once daily at home, resume; no associated abdominal pain reported Atrial fibrillation Continue with amiodarone 200 mg p.o. twice daily Continue with Eliquis 2.5 mg p.o. twice daily Continue with metoprolol succinate 100 mg p.o. daily Chronic systolic heart failure, not in exacerbation Continue with Entresto 1 tab p.o. twice daily, continue with beta-trish, continue with Bumex 1 mg p.o. twice daily, continue with Farxiga 5 mg p.o. daily, continue with atorvastatin 40 mg p.o. daily Type a aortic dissection Stable HIV Continue with Biktarvy 1 tab p.o. daily and Prezcobix 1 tab p.o. daily DVT prophylaxis: Eliquis 2.5 mg p.o. twice daily Anticipated discharge place: [facility] Anticipated discharge time: 24 hours Objective - Vital Signs Vital signs: Vital Signs Temp 98.4 F 06/17/24 07:08 Pulse 66 06/17/24 07:08 Resp 16 06/17/24 07:08 BP 127/68 06/17/24 07:08 Pulse Ox 98 06/17/24 07:08 FiO2 Intake & Output 06/16/24 06/17/24 06/17/24 18:59 06:59 18:59 Intake Total 354 118 Balance 354 118 Intake: Oral 354 118 Other: Voiding Method Toilet Toilet Toilet Urinal Urinal # Voids 3 1 - Labs CBC & Chem 7: 06/16/24 19:49 06/16/24 19:49 Labs: Abnormal Lab Results - Last 24 Hours (Table) 06/16/24 06/16/24 Range/Units 19:49 19:49 WBC 3.97 L (4.50-10.00) X 10*3/uL RDW 16.1 H (11.5-14.5) % Anion Gap 15.90 H (4.00-12.00) mmol/L Glucose 141 H (70-110) mg/dL
[2024-06-17] MEDS: MORPHINE SULFATE 2 MG/ML SYRINGE IV PRN (14:45)
[2024-06-17] MEDS: HYDROmorphone 1 MG/ML 1 ML SYRINGE IVP STA (16:50)
[2024-06-17] MEDS: ALBUTEROL NEBULIZED 2.5 MG/3 ML INHALATION PRN (20:54)
[2024-06-17] MEDS: ACETAMINOPHEN TAB 325 MG TAB PO PRN (22:50)
[2024-06-18] MEDS: LORazepam 0.5 MG TAB PO PRN (12:38)
[2024-06-18 13:28] VITALS: BP 121/65; PULSE 64; RESP 16; TEMP 97.6
--- NOTE | 2024-06-18 14:29 | XR ---
EXAMINATION TYPE: XR ankle complete bilateral DATE OF EXAM: 06/18/2024 2:09 PM COMPARISON: 02/11/2024 CLINICAL INDICATION: Male, 63 years old with history of Pain; PHH, pain TECHNIQUE: XR ankle complete bilateral; ankle is imaged in frontal, lateral and oblique projections. FINDINGS: Right: There is no evidence of acute osseous pathology. No evidence of subluxation or dislocation. Kager's fat pad is intact. Mild soft tissue swelling around the ankle. No radiopaque foreign bodies are ident ified. Accessory ossicles are present. Calcaneal plantar spurring is present. Calcaneal Achilles enth esophyte. Left: There is no evidence of acute osseous pathology. No evidence of subluxation or dislocation. Kager's fat pad is intact. Mild soft tissue swelling around the ankle. No radiopaque foreign bodies are ident ified. Accessory ossicles are present. Calcaneal plantar spurring is present. IMPRESSION: 1. No evidence of acute fracture. 2. Bilateral Subcutaneous swelling around the ankle correlate for systemic causes.. [facility], , 06/18/2024 2:26 PM
--- NOTE | 2024-06-18 15:56 | P.PN ---
Subjective Progress Note Date: 06/18/24 Hospital Course: A 63-year-old male with PMH of A-fib on Eliquis, chronic systolic heart failure EF 35 to 40%, stable type a aortic dissection, alcohol abuse, HIV on antiretroviral therapy, multiple admissions for alcohol withdrawal, recently discharged on 06/11/2024. Patient stated that he was recently at [facility] evaluated by cardiothoracic surgery and was deemed to be not a candidate for irizarry rgery and that if he does not get surgery he will and if he does get surgery he will also , patient has been compensating by drinking and eventually called 911 to talk to someone, was sent to evaluate the patient and offered him to go to the hospital. Patient was admitted for management of acute on chronic depression and anxiety, alcohol withdrawal, he was also complaining of chest pain, cardiology consulted, no further workup warranted, patient's troponin's were negative x 2, EKG showed no ischemic changes. 06/18 Patient was seen and examined. He reports significant pain in both of his ankles. States he is unable to ambulate. No associated trauma. Vitals Signs Reviewed. General: [nontoxic], [no distress], [appears at stated age] Derm: [warm], [dry] Head: [atraumatic], [normocephalic], [symmetric] Eyes: [EOMI], [no lid lag], [anicteric sclera] Mouth: [no lip lesion], [mucus membranes moist] Cardiovascular: [good distal perfusion in all 4 extremities] Lungs: [breathing comfortably] Ext: [no gross muscle atrophy], [no edema], [tenderness to palpation over the medial and lateral malleolus bilaterally] Psych: [Alert], [oriented], [appropriate affect] Assessment and Plan: Bilateral ankle pain Obtain uric acid. Fall precautions PT and OT consult. Acute on chronic depression and anxiety Alcohol abuse Continue with psych meds recommended from previous admission by psychiatry Cymbalta 30 mg p.o. daily, Remeron 7.5 mg p.o. at bedtime -Not a candidate for inpatient psych, continue current medications per psychiatry, social work following, psychiatry signed off Chest pain likely due to anxiety Troponin negative x 2 Consult cardiology:no interventions Discontinue morphine and start Percocet PRN Alcohol withdrawal Patient's alcohol level 372 on arrival. Discontinue Ativan Chronic diarrhea -Patient states he is on Imodium once daily at home, resume; no associated abdominal pain reported Atrial fibrillation Continue with amiodarone 200 mg p.o. twice daily Continue with Eliquis 2.5 mg p.o. twice daily Continue with metoprolol succinate 100 mg p.o. daily Chronic systolic heart failure, not in exacerbation Continue with Entresto 1 tab p.o. twice daily, continue with beta-trish, continue with Bumex 1 mg p.o. twice daily, continue with Farxiga 5 mg p.o. daily, continue with atorvastatin 40 mg p.o. daily Type a aortic dissection Stable HIV Continue with Biktarvy 1 tab p.o. daily and Prezcobix 1 tab p.o. daily DVT prophylaxis: Eliquis 2.5 mg p.o. twice daily Anticipate discharge home once cleared by PT and OT. States at this time he cannot even ambulate to get into his house. Objective - Vital Signs Vital signs: Vital Signs Temp 97.6 F 06/18/24 13:27 Pulse 64 06/18/24 13:27 Resp 16 06/18/24 13:27 BP 121/65 06/18/24 13:27 Pulse Ox 100 06/18/24 13:27 FiO2 Intake & Output 06/17/24 06/18/24 06/18/24 18:59 06:59 18:59 Intake Total 354 378 Output Total 200 400 Balance 354 -200 -22 Intake: Oral 354 378 Output: Urine 200 400 Other: Voiding Method Toilet Toilet Toilet # Voids 3 2 # Bowel Movements 1 - Labs CBC & Chem 7: 06/16/24 19:49 06/16/24 19:49
[2024-06-18] MEDS: oxyCODONE-APAP 10-325MG 1 EACH TAB PO PRN (17:35)
== END 2024-06-18 18:20 | disposition home or self-care (01) | DRG 896 ==
LOC: EC 23:25 → 6NMEDSUR 06-15 06:57 → OBSVTOIN 06-15 06:58 → 6NMEDSUR 06-15 07:08
PROVIDERS: ADMIT Internal Medicine; ATTEND Internal Medicine
PROC: HZ2ZZZZ Detoxification Services for Substance Abuse Treatment (ICD-10-PCS; principal; 2024-06-17)
DX: F10.239 Alcohol dependence with withdrawal, unspecified (principal); I71.00 Dissection of unspecified site of aorta; I50.22 Chronic systolic (congestive) heart failure; I42.0 Dilated cardiomyopathy; F33.1 Major depressive disorder, recurrent, moderate; F43.22 Adjustment disorder with anxiety; I11.0 Hypertensive heart disease with heart failure; J45.909 Unspecified asthma, uncomplicated; I48.91 Unspecified atrial fibrillation; M79.7 Fibromyalgia; K21.9 Gastro-esophageal reflux disease without esophagitis; F43.10 Post-traumatic stress disorder, unspecified; Z21 Asymptomatic human immunodeficiency virus [HIV] infection status; Y90.8 Blood alcohol level of 240 mg/100 ml or more; K52.9 Noninfective gastroenteritis and colitis, unspecified; G89.4 Chronic pain syndrome; M1A.9XX0 Chronic gout, unspecified, without tophus (tophi); N40.0 Benign prostatic hyperplasia without lower urinary tract symptoms; Z79.01 Long term (current) use of anticoagulants; Z87.891 Personal history of nicotine dependence; Z88.8 Allergy status to other drugs, medicaments and biological substances; Z79.890 Hormone replacement therapy; Z79.899 Other long term (current) drug therapy; Z88.2 Allergy status to sulfonamides; Z88.9 Allergy status to unspecified drugs, medicaments and biological substances; Z55.5 Less than a high school diploma
CPT/HCPCS: 36415; 71046; 80048; 80053; 80320; 83690; 83735; 83880; 84100; 84484; 84550; 85025; 85610; 85730; 93005; 94640; 96361; 96374; 96375; 99285

== ENCOUNTER 2024-06-21 21:29 | Observation (INO) | payer MEDICARE, OTHER ==
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
[2024-06-21 21:50] LABS: Basophils # (A) 0.1 k/uL (0-0.2); Basophils % (A) 1 %; Eosinophils # (A) 0.1 k/uL (0-0.7); Eosinophils % (A) 1 %; HCT 36.5 % (39.0-53.0); HGB 11.6 gm/dL (13.0-17.5); Hypochromasia Slight; Lymphocytes # (A) 2.5 k/uL (1.0-4.8); Lymphocytes % (A) 51 %; MCH 30.8 pg (25.0-35.0); MCHC 31.9 g/dL (31.0-37.0); MCV 96.7 fL (80.0-100.0); Mean Platelet Volume 8.6; Monocytes # (A) 0.3 k/uL (0-1.0); Monocytes % (A) 5 %; Neutrophils # (A) 1.9 k/uL (1.3-7.7); Neutrophils % (A) 39 %; Platelet Count 209 k/uL (150-450); RBC 3.77 m/uL (4.30-5.90); RDW 15.8 % (11.5-15.5)
[2024-06-21 22:03] LABS: ALT 12 U/L (4-49); AST 23 U/L (17-59); Acetaminophen <10.0 ug/mL; African American GFR (CKD) >90 (>60 ml/min/1.73 sqM); Alkaline Phosphatase 99 U/L (38-126); Anion Gap 7 mmol/L; Blood Urea Nitrogen 15 mg/dL (9-20); Calcium 8.7 mg/dL (8.4-10.2); Carbon Dioxide 26 mmol/L (22-30); Chloride 111 mmol/L (98-107); Glucose 92 mg/dL (74-99); Lipase 211 U/L (23-300); Non-African American GFR(CKD) >90 (>60 ml/min/1.73 sqM); Potassium 3.7 mmol/L (3.5-5.1); Salicylate <1.0 mg/dL; Sodium 144 mmol/L (137-145); Total Bilirubin 0.4 mg/dL (0.2-1.3); Total Protein 7.3 g/dL (6.3-8.2)
[2024-06-21] MEDS: SODIUM CHLORIDE 0.9% 1,000 ML IV STA (22:05)
[2024-06-21 22:16] LABS: Alcohol 297 mg/dL
[2024-06-21 22:47] LABS: Appearance,Urine Clear (Clear); Bilirubin,Urine Negative (Negative); Blood,Urine Negative (Negative); Color,Urine Colorless; Glucose,Urine (UA) 2+ (Negative); Ketones,Urine Negative (Negative); Leukocyte Esterase,Urine Negative (Negative); Nitrite,Urine Negative (Negative); PH, Urine 5.5 (5.0-8.0); Protein,Urine Negative (Negative); Specific Gravity,Urine 1.005 (1.001-1.035); Urobilinogen,Urine <2.0 mg/dL (<2.0)
[2024-06-21 23:06] LABS: Amphetamine Screen,Urine Not Detected (NotDetected); Barbiturate Screen,Urine Not Detected (NotDetected); Benzodiazepines Screen,Urine Detected (NotDetected); Cocaine Screen,Urine Not Detected (NotDetected); Methadone Screen, Urine Not Detected (NotDetected); Opiate Screen,Urine Not Detected (NotDetected); Oxycodone Screen, Urine Not Detected (NotDetected); Phencyclidine Screen,Urine Not Detected (NotDetected); Tricyclic Antidepressant,Urine Not Detected (NotDetected); Urn Cannabinoid Scrn Detected (NotDetected)
[2024-06-21] MEDS ORDERED: NALOXONE 0.4 MG/ML 1 ML VIAL IV PRN (23:23)
[2024-06-22] MEDS: SODIUM CHLORIDE 0.9% 1,000 ML IV SCH (00:39)
[2024-06-22] MEDS: LORazepam 2 MG/ML INJ IV STA (02:46)
[2024-06-22] MEDS: ONDANSETRON 4 MG/2 ML VIAL IVP PRN (05:54)
[2024-06-22] MEDS ORDERED: LORazepam 2 MG/ML INJ IV PRN (05:59)
[2024-06-22] MEDS ORDERED: LORazepam 1 MG TAB PO PRN (05:59)
[2024-06-22] MEDS: LEVOTHYROXINE 100 MCG TAB PO SCH (06:19)
[2024-06-22] MEDS: LORazepam 1 MG TAB PO PRN (06:57)
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
[2024-06-22] MEDS: IPRATROPIUM-ALBUTEROL 3 ML NEB INHALATION PRN (08:27)
[2024-06-22] MEDS: THIAMINE 100 MG TAB PO SCH (08:49)
[2024-06-22] MEDS: ATORVASTATIN 40 MG TAB PO SCH (08:50)
[2024-06-22] MEDS: APIXABAN 2.5 MG TABLET PO SCH (08:50)
[2024-06-22] MEDS: LORazepam 0.5 MG TAB PO PRN (08:50)
[2024-06-22] MEDS: METOPROLOL SUCCINATE (ER) 100 MG TAB.ER.24H PO SCH (08:56)
[2024-06-22 10:41] LABS: HCT 38.4 % (39.0-53.0); HGB 11.7 gm/dL (13.0-17.5); Hypochromasia Marked; MCH 30.8 pg (25.0-35.0); MCHC 30.5 g/dL (31.0-37.0); Macrocytosis Slight; Mean Platelet Volume 8.7; Platelet Count 195 k/uL (150-450); RDW 15.9 % (11.5-15.5); WBC 6.4 k/uL (3.8-10.6)
[2024-06-22 10:57] LABS: ALT 12 U/L (4-49); AST 21 U/L (17-59); African American GFR (CKD) >90 (>60 ml/min/1.73 sqM); Albumin 3.9 g/dL (3.5-5.0); Albumin/Globulin Ratio 1.2; Alkaline Phosphatase 105 U/L (38-126); Anion Gap 10 mmol/L; Blood Urea Nitrogen 16 mg/dL (9-20); Calcium 8.8 mg/dL (8.4-10.2); Carbon Dioxide 21 mmol/L (22-30); Chloride 111 mmol/L (98-107); Globulin 3.2 g/dL; Glucose 105 mg/dL (74-99); Magnesium 1.7 mg/dL (1.6-2.3); Non-African American GFR(CKD) >90 (>60 ml/min/1.73 sqM); Potassium 4.4 mmol/L (3.5-5.1); Sodium 142 mmol/L (137-145); Total Bilirubin 0.4 mg/dL (0.2-1.3); Total Protein 7.1 g/dL (6.3-8.2)
[2024-06-22] MEDS: LORazepam 2 MG/ML INJ IV PRN (13:46)
[2024-06-22] MEDS ORDERED: ALBUTEROL HFA INHALER INHALATION PRN (13:51)
--- NOTE | 2024-06-22 14:08 | P.PN ---
Subjective Progress Note Date: 06/22/24 Hospital course: Patient is a 63-year-old male with a past medical history of HIV, paroxysmal atrial fibrillation, hypertension, hyperlipidemia, chronic systolic heart failure with previous known EF of 35%, mitral valve repair, type a aortic dissection, hypothyroidism, depression and anxiety, and alcohol abuse. He presented to the emergency department with complaints of intentional overdose. Per documentation in chart, patient reported that he is a heavy drinker and sometimes goes into dark places and having negative thoughts about ending his life and reports he took too much of his heart medications (but unable to state which ones or how much), patient reported he immediately regretted this decision and is seeking assistance. On arrival to our facility, patient underwent evaluation in the emergency department. Vital signs upon arrival show blood pressure 101/48, heart rate 68, respiratory rate 16, and SpO2 of 97% on room air. EKG completed showing sinus rhythm at 65 bpm with a first-degree AV block with TN interval of 220 ms and previously known left bundle branch block. Labs completed and reviewed. CBC showing normocytic anemia with hemoglobin of 11.6. Chloride 111. Salicylate level less than 1.0. Acetaminophen level less than 10.0. Serum alcohol level elevated at 297. Urine drug screen positive for benzodiazepines and marijuana. Urinalysis negative for infection. Patient admitted under services with consultation to psychiatry. Physical exam: Patient was seen and fully evaluated at bedside, patient's also at bedside. Patient just reports feeling depressed and hopeless. He continues to state he is unsure of which of his heart medications that he overdosed on states he does not remember which medication it was because he is on so many, but admits to taking at least 5 or 6 pills extra. Vital signs reviewed and stable. General: Nontoxic, no distress and appears stated age. Derm: Skin warm and dry, normal coloration for ethnicity. Head: Atraumatic, normocephalic and symmetric. Eyes: EOM's intact, no lid lag, and anicteric sclera Mouth: no lip lesions, mucus membranes moist Cardiovascular: regular rate and rhythm with normal S1S2, systolic murmur, positive posterior tibial pulses bilaterally, and cap refill < 2 seconds. Lungs: Respirations even, regular, and unlabored on room air. Lungs CTA bilaterally, no rhonchi, no rales, no wheezing, and no accessory muscle usage. Abdominal: soft, nontender to palpation, no guarding, no appreciable organomega ly Ext: ROM intact. No gross muscle atrophy, no edema, no contractures Neuro: Speech clear, face symmetrical and CN II-XII grossly intact with no noted focal neuro deficits Psych: Alert and oriented to person, place, time, and situation. Appropriate and pleasant affect. Assessment and Plan of Care: Intentional overdose Depression and anxiety -Per documentation in chart, patient reported that he is a heavy drinker and sometimes goes into dark places and having negative thoughts about ending his life and reports he took too much of his heart medications (but unable to state which ones or how much), patient reported he immediately regretted this decision and is seeking assistance. -Cardiac medications initially held as it was unclear on which medications patient intentionally overdosed on or the exact amount of medication patient consumed as he was not specific and when asked now unable to answer. Repeat EKG to ensure no new changes and plan to resume cardiac medication regimen this evening as scheduled -Psychiatry consulted, appreciate recommendations -Maintain suicide precautions at all times. -Sitter to remain at bedside continuously. Alcohol withdraw in active alcoholic Macrocytic anemia, secondary to daily alcohol abuse -Continue monitoring of CIWA scores and patient to be medicated with Ativan 0.5 mg every 4 hours as needed for CIWA score of 4-5, Ativan 1 mg every 4 hours for CIWA score of 6-7, Ativan 2 mg every 3 hours CIWA score of 8-9, and Ativan 2 mg every 2 hours forr CIWA score of 10 or greater. CIWA score 10. -Thiamine 100 mg daily, and Multivitamin daily, and Folate 1 mg daily -Seizure, fall, aspiration, and elopement precautions in place. -Continued close monitoring of electrolytes and replace as needed. -Telemetry monitoring. Chronic systolic heart failure Paroxysmal atrial fibrillation, currently maintaining sinus mechanism CAD Type A aortic dissection -Patient denies experiencing cardiac complaints at this time including chest pain, palpitations, or shortness of breath. -Cardiac medications initially held as it was unclear on which medications patient intentionally overdosed on or the exact amount of medication patient consumed as he would not be specific and when asked now states he is unable to answer but maybe 5 or 6 extra cardiac pills. Will repeat EKG to ensure no new changes and plan to resume cardiac medication regimen this evening as scheduled -EKG completed showing sinus rhythm at 65 bpm with a first-degree AV block with TN interval of 220 ms and previously known left bundle branch block. -Patient to resume cardiac medication regimen with amiodarone 200 mg twice daily, Eliquis 2.5 mg twice daily, atorvastatin 40 mg daily, Bumex 1 mg twice daily, Jardiance 10 mg daily, fenofibrate 48 mg daily, metoprolol succinate 100 mg daily, and Entresto 24-26 mg tablet twice daily. -Patient to remain on continuous telemetry monitoring. HIV -Continue Biktarvy 50-200-25 mg daily and Prezcobix 800-150 mg daily.. Hypothyroidism Continue daily medication regimen with levothyroxine 200 mcg daily. Data and imaging reviewed: -Vital signs reviewed and stable. Blood pressure 120/58, heart rate 65, respiratory rate 19, temp 98.9 F, and SpO2 of 94% on room air. -Morning labs reviewed. CBC showing macrocytic anemia with hemoglobin of 11.7 and MCV of 101.0. BMP showing non-anion gap metabolic acidosis with chloride of 111, bicarb of 21, and anion gap of 10. Blood glucose 105. Liver profile unremarkable. CODE STATUS: Full code DVT prophylaxis: Eliquis Anticipated discharge date: Pending clinical course and evaluation by psychiatry Anticipated discharge place: Likely inpatient psychiatric unit Patient was seen independently by Nurse Pracitioner. This document was prepared using [employer] dictation software. Please allow for errors in amphibious operations officer, while rare they do occur. Ismael Mireles NP rendered care for this patient independently, reviewed the findings and plan as documented in the note above and agree with plan. I did not physically speak with or examine the patient on this date. Objective - Vital Signs Vital signs: Vital Signs Temp Pulse 65 06/22/24 08:40 Resp 19 06/22/24 08:40 BP 120/58 06/22/24 08:40 Pulse Ox 94 L 06/22/24 08:40 FiO2 21 06/22/24 08:30 Intake & Output 06/21/24 06/22/24 06/22/24 18:59 06:59 18:59 Weight 76.204 kg - Labs CBC & Chem 7: 06/22/24 10:30 06/22/24 10:30 Labs: Abnormal Lab Results - Last 24 Hours (Table) 06/21/24 06/21/24 06/21/24 Range/Units 21:37 21:37 22:09 RBC 3.77 L (4.30-5.90) m/uL Hgb 11.6 L (13.0-17.5) gm/dL Hct 36.5 L (39.0-53.0) % RDW 15.8 H (11.5-15.5) % Chloride 111 H (98-107) mmol/L Urine Glucose (UA) 2+ H (Negative) U Benzodiazepines Scrn Detected H (NotDetected) U Marijuana (THC) Screen Detected H (NotDetected) Serum Alcohol 297 H* mg/dL
[2024-06-22] MEDS: oxyCODONE-APAP 10-325MG 1 EACH TAB PO PRN (17:53)
[2024-06-22] MEDS: BUMETANIDE 1 MG TAB PO SCH (22:20)
[2024-06-22] MEDS: AMIODARONE 200 MG TAB PO SCH (22:20)
[2024-06-22] MEDS: SACUBITRIL/VALSARTAN 24 MG-26 MG TABLET PO SCH (22:20)
[2024-06-22] MEDS: MIRTAZAPINE 15 MG TAB PO SCH (22:21)
[2024-06-22] MEDS: LATANOPROST 0.005% OPHTH DROPS 2.5 ML BTL BOTH EYES SCH (23:12)
[2024-06-23 07:20] VITALS: TEMP 97.7
[2024-06-23 08:41] LABS: ALT 9 U/L (10-49); AST 17 U/L (14-35); Albumin 3.5 g/dL (3.8-4.9); Albumin/Globulin Ratio 1.21 Ratio (1.60-3.17); Alkaline Phosphatase 78 U/L (41-126); BUN/Creat Ratio 17.44 Ratio (12.00-20.00); Blood Urea Nitrogen 15.7 mg/dL (9.0-27.0); Calcium 8.6 mg/dL (8.7-10.3); Carbon Dioxide 22.5 mmol/L (21.6-31.8); Chloride 106 mmol/L (96-109); Globulin 2.9 g/dL (1.6-3.3); Glucose 98 mg/dL (70-110); Magnesium 1.5 mg/dL (1.5-2.4); Potassium 3.6 mmol/L (3.5-5.5); Sodium 141 mmol/L (135-145); Total Bilirubin 0.5 mg/dL (0.3-1.2); Total Protein 6.4 g/dL (6.2-8.2)
[2024-06-23] MEDS ORDERED: [UNRECOGNIZED DRUG - OTHER] PO SCH ×2 (09:00→13:22)
[2024-06-23] MEDS ORDERED: DARUNAVIR PO SCH ×2 (09:00→13:22)
[2024-06-23] MEDS ORDERED: COBICISTAT PO SCH ×2 (09:00→13:22)
[2024-06-23 09:10] LABS: HCT 34.1 % (39.6-50.0); HGB 10.8 g/dL (13.0-17.0); MCH 30.8 pg (27.0-32.0); MCHC 31.7 g/dL (32.0-37.0); MCV 97.2 FL (80.0-97.0); Mean Platelet Volume 11.7 FL (9.5-12.2); NRBC Per 100 WBC 0 X 10*3/uL (0.00-0.01); Platelet Count 166 X 10*3/uL (140-440); RBC 3.51 X 10*6/uL (4.40-5.60); RDW 16.3 % (11.5-14.5); WBC 3.98 X 10*3/uL (4.50-10.00)
[2024-06-23] MEDS: LIDOCAINE 4% PATCH TOPICAL SCH (09:53)
[2024-06-23] MEDS: COBICISTAT PO SCH (09:53)
[2024-06-23] MEDS: DARUNAVIR PO SCH (09:53)
[2024-06-23] MEDS: NON FORMULARY DRUG (Bictegrav/Emtricit/Tenofov Ala [Biktarvy 50-200-25 Mg Tablet] 1 EACH T PO SCH (09:53)
[2024-06-23] MEDS: PANTOPRAZOLE 40 MG TABLET PO SCH (09:53)
[2024-06-23] MEDS: [UNRECOGNIZED DRUG - OTHER] PO SCH (09:53)
[2024-06-23] MEDS: allopurinoL 100 MG TAB PO SCH (09:54)
[2024-06-23] MEDS: CHOLECALCIFEROL 25 MCG (1000 IU) TABLET PO SCH (09:54)
[2024-06-23] MEDS: DAPAGLIFLOZIN PROPANEDIOL 5 MG TABLET PO SCH (09:54)
[2024-06-23] MEDS: FENOFIBRATE 54 MG TAB PO SCH (09:55)
[2024-06-23] MEDS: DULoxetine HCL 30 MG CAPSULE.DR PO SCH (09:55)
[2024-06-23] MEDS: MAGNESIUM SULFATE-D5W PMX 1 GM in DEXTROSE/WATER 1 100ML.BAG IVPB SCH (10:26)
--- NOTE | 2024-06-23 10:58 | P.PN ---
Subjective Progress Note Date: 06/23/24 Hospital course: Patient is a 63-year-old male with a past medical history of HIV, paroxysmal atrial fibrillation, hypertension, hyperlipidemia, chronic systolic heart failure with previous known EF of 35%, mitral valve repair, type a aortic dissection, hypothyroidism, depression and anxiety, and alcohol abuse. He presented to the emergency department with complaints of intentional overdose. Per documentation in chart, patient reported that he is a heavy drinker and sometimes goes into dark places and having negative thoughts about ending his life and reports he took too much of his heart medications (but unable to state which ones or how much), patient reported he immediately regretted this decision and is seeking assistance. On arrival to our facility, patient underwent evaluation in the emergency department. Vital signs upon arrival show blood pressure 101/48, heart rate 68, respiratory rate 16, and SpO2 of 97% on room air. EKG completed showing sinus rhythm at 65 bpm with a first-degree AV block with IN interval of 220 ms and previously known left bundle branch block. Labs completed and reviewed. CBC showing normocytic anemia with hemoglobin of 11.6. Chloride 111. Salicylate level less than 1.0. Acetaminophen level less than 10.0. Serum alcohol level elevated at 297. Urine drug screen positive for benzodiazepines and marijuana. Urinalysis negative for infection. Patient admitted under services with consultation to psychiatry. Physical exam: Patient was seen and fully evaluated at bedside, sitter also at bedside maintaining suicide precautions. Patient just reports feeling "fine" this morning, stating just a little tired. Pt denies having any other questions, needs, complaints, or concerns. Patient updated that we are waiting on psychiatry to evaluate. Vital signs reviewed and stable. General: Nontoxic, no distress and appears stated age. Derm: Skin warm and dry, normal coloration for ethnicity. Head: Atraumatic, normocephalic and symmetric. Eyes: EOM's intact, no lid lag, and anicteric sclera Mouth: no lip lesions, mucus membranes moist Cardiovascular: regular rate and rhythm with normal S1S2, systolic murmur, positive posterior tibial pulses bilaterally, and cap refill < 2 seconds. Lungs: Respirations even, regular, and unlabored on room air. Lungs CTA bilaterally, no rhonchi, no rales, no wheezing, and no accessory muscle usage. Abdominal: soft, nontender to palpation, no guarding, no appreciable organomegaly Ext: ROM intact. No gross muscle atrophy, no edema, no contractures Neuro: Speech clear, face symmetrical and CN II-XII grossly intact with no noted focal neuro deficits Psych: Alert and oriented to person, place, time, and situation. Appropriate and pleasant affect. Assessment and Plan of Care: Intentional overdose Depression and anxiety -Per documentation in chart, patient reported that he is a heavy drinker and sometimes goes into dark places and having negative thoughts about ending his life and reports he took too much of his heart medications (but unable to state which ones or how much), patient reported he immediately regretted this decision and is seeking assistance. -Cardiac medications initially held as it was unclear on which medications patient intentionally overdosed on or the exact amount of medication patient consumed as he was not specific and when asked now unable to answer. Repeat EKG to ensure no new changes and plan to resume cardiac medication regimen this evening as scheduled -Psychiatry consulted, appreciate recommendations -Maintain suicide precautions at all times. -Sitter to remain at bedside continuously. Alcohol withdraw in active alcoholic Bicytopenia, secondary to daily alcohol abuse Macrocytic anemia, secondary to daily alcohol abuse Hypomagnesemia -Continue monitoring of CIWA scores and patient to be medicated with Ativan 0.5 mg every 4 hours as needed for CIWA score of 4-5, Ativan 1 mg every 4 hours for CIWA score of 6-7, Ativan 2 mg every 3 hours CIWA score of 8-9, and Ativan 2 mg every 2 hours forr CIWA score of 10 or greater. CIWA score 10. -Thiamine 100 mg daily, and Multivitamin daily, and Folate 1 mg daily -Seizure, fall, aspiration, and elopement precautions in place. -Magnesium low this morning at 1.5. Orders placed for magnesium sulfate 2 g IVPB. -Continued close monitoring of electrolytes and replace as needed. -Telemetry monitoring. Chronic systolic heart failure Paroxysmal atrial fibrillation, currently maintaining sinus mechanism CAD Type A aortic dissection -Patient denies experiencing cardiac complaints at this time including chest pain, palpitations, or shortness of breath. -Cardiac medications initially held as it was unclear on which medications patient intentionally overdosed on or the exact amount of medication patient consumed as he would not be specific and when asked now states he is unable to answer but maybe 5 or 6 extra cardiac pills. Will repeat EKG to ensure no new changes and plan to resume cardiac medication regimen this evening as scheduled -EKG completed showing sinus rhythm at 65 bpm with a first-degree AV block with IN interval of 220 ms and previously known left bundle branch block. -Patient to resume cardiac medication regimen with amiodarone 200 mg twice daily, Eliquis 2.5 mg twice daily, atorvastatin 40 mg daily, Bumex 1 mg twice da fariha, Jardiance 10 mg daily, fenofibrate 48 mg daily, metoprolol succinate 100 mg daily, and Entresto 24-26 mg tablet twice daily. -Patient to remain on continuous telemetry monitoring. HIV -Continue Biktarvy 50-200-25 mg daily and Prezcobix 800-150 mg daily.. Hypothyroidism Continue daily medication regimen with levothyroxine 200 mcg daily. Data and imaging reviewed: -Vital signs reviewed and stable. Blood pressure 135/71, heart rate 62, respiratory rate 15, temp 97.7 F, and SpO2 of 96% on room air. -Morning labs reviewed. CBC showing bicytopenia with WBC count of 3.98 and hemoglobin of 10.8. BMP showing slightly elevated anion gap of 12.50 otherwise normal findings. Blood glucose 98. Magnesium 1.5. Liver profile showing a low ALT of 9 and albumin of 3.5. CODE STATUS: Full code DVT prophylaxis: Eliquis Anticipated discharge date: Pending evaluation by psychiatry Anticipated discharge place: Likely inpatient psychiatric unit Patient was seen independently by Nurse Pracitioner. This document was prepared using [employer] dictation software. Please allow for errors in foster care therapist, while rare they do occur. Ismael Mireles NP rendered care for this patient independently, reviewed the findings and plan as documented in the note above and agree with plan. I did not physically speak with or examine the patient on this date. Objective - Vital Signs Vital signs: Vital Signs Temp 97.7 F 06/23/24 07:19 Pulse 62 06/23/24 07:19 Resp 15 06/23/24 07:19 BP 135/71 06/23/24 07:19 Pulse Ox 96 06/23/24 07:19 FiO2 21 06/22/24 08:30 Intake & Output 06/22/24 06/23/24 06/23/24 18:59 06:59 18:59 Intake Total 540 Balance 540 Weight 76.204 kg Intake: Oral 540 Other: Voiding Method Toilet # Voids 3 - Labs CBC & Chem 7: 06/23/24 04:18 06/23/24 04:18 Labs: Abnormal Lab Results - Last 24 Hours (Table) 06/22/24 06/22/24 06/23/24 Range/Units 10:30 10:30 04:18 WBC 3.98 L (4.50-10.00) X 10*3/uL RBC 3.80 L 3.51 L (4.30-5.90) m/uL Hgb 11.7 L 10.8 L (13.0-17.5) gm/dL Hct 38.4 L 34.1 L (39.0-53.0) % MCV 101.0 H 97.2 H (80.0-100.0) fL MCHC 30.5 L 31.7 L (31.0-37.0) g/dL RDW 15.9 H 16.3 H (11.5-15.5) % Chloride 111 H (98-107) mmol/L Carbon Dioxide 21 L (22-30) mmol/L Anion Gap (4.00-12.00) mmol/L Glucose 105 H (74-99) mg/dL Calcium (8.7-10.3) mg/dL ALT (10-49) U/L Albumin (3.8-4.9) g/dL Albumin/Globulin Ratio (1.60-3.17) Ratio 06/23/24 Range/Units 04:18 WBC (4.50-10.00) X 10*3/uL RBC (4.30-5.90) m/uL Hgb (13.0-17.5) gm/dL Hct (39.0-53.0) % MCV (80.0-100.0) fL MCHC (31.0-37.0) g/dL RDW (11.5-15.5) % Chloride (98-107) mmol/L Carbon Dioxide (22-30) mmol/L Anion Gap 12.50 H (4.00-12.00) mmol/L Glucose (74-99) mg/dL Calcium 8.6 L (8.7-10.3) mg/dL ALT 9 L (10-49) U/L Albumin 3.5 L (3.8-4.9) g/dL Albumin/Globulin Ratio 1.21 L (1.60-3.17) Ratio
[2024-06-23 15:16] VITALS: BP 130/68; PULSE 66; RESP 16
--- NOTE | 2024-06-23 15:23 | P.CN ---
Psychiatric Consult - . Consult date: 06/23/24 Consult:: 06/23/24 15:17 IDENTIFYING DATA: This patient is a 63-year-old male, REASON FOR REFERRAL: Psychiatry was consulted for SI HISTORY OF PRESENT ILLNESS: The patient presented to the hospital with alcohol intoxication and suicide attempt. Patient states taking 5 pills of his blood pressure medications however he contacted the ambulance immediately afterwards. He states prior to this he was not sleeping for several days and was in addition drinking alcohol however he initially was minimizing its use until his alcohol level in the ED was brought up. He is precontemplative in his need to quit alcohol, stating he drank 1/5 on the day of admission however states this is not consistent. He is not agreeable with rehab. He states since being in the hospital, his sleep has improved significantly and that he sees a therapist regularly. He was encouraged to make an appointment with [facility] to follow-up with psychiatry. At this time patient denies any suicidal or homical ideations, intent or plan. Patient denies any auditory, visual hallucinations and denies any paranoia or delusions. Patient today was goal oriented, talking about the holidays and listing himself as the biggest reason to live. PAST PSYCHIATRIC HISTORY: Patient has a a history of pression, alcohol use disorder, anxiety. Patient is currently on Remeron 7.5 mg at bedtime, Cymbalta 30 mg daily. Patient most recently was admitted to the behavioral health unit back in April 2024. Patient denies any psychiatric outpatient follow-up. Patient has 1 prior suicide attempt back in April of this year. PAST MEDICAL HISTORY: A-fib, asthma, heart failure, fibromyalgia, GERD, hypertension, mitral valve disease. ALLERGIES: as per EMR. CHEMICAL DEPENDENCY HISTORY: as per HPI. FAMILY PSYCHIATRIC/SUBSTANCE USE HISTORY: Patient reports strong family history of alcohol use disorder SOCIAL HISTORY: Patient was born and raised in [place]. He is and has no children. He is on disability. He completed school up to 10th grade. MENTAL STATUS EXAM: General Appearance: Patient appears to be stated age is alert, pleasant, and cooperative. Patient appears to have fair hygiene and grooming wearing hospital gown with fair eye contact. He wears glasses Behavior: Patient is calmly lying in bed without any agitated behavior. Speech: Patient's speech is fluent and nonpressured. Mood/Affect: Patient reports their mood is "better", affect is congruent, blunted Suicidality/Homicidality: Patient denies having any suicidal or homicidal ideation intent or plan. Perceptions: Patient denies any visual hallucinations and denies any auditory hallucinations Though content/process: There is no evidence of any delusional thought content and thought process is linear and goal-directed. Memory and concentration: AOX3, grossly intact for the purposes of this session. Can spell "WORLD" backwards Judgment and insight: Improving IMPRESSIONS: Major depressive disorder, recurrent, moderate Alcohol use disorder, severe Generalized anxiety disorder PLAN: -At this time patient DOES NOT meet criteria for inpatient psychiatric admission. -Would recommend the following medication changes/additions: Cymbalta 30 mg daily, Remeron 7.5 mg at bedtime -Can discontinue 1:1 sitter at this time as patient is not currently an imminent threat to themselves -post tensioning ironworker helper to provide patient with outpatient mental health/psychiatry resou rces for appropriate follow up upon discharge -Flight Controls Engineer spoke with patient about substance abuse and the harmful effects on medical and mental health, patient verbally understood and agreed. -post tensioning ironworker helper to provide patient substance use treatment resources including AA/NA meetings in the community. -Communicated plan to patient's nurse -Psychiatry will sign off at this time -Please contact with any questions.
--- NOTE | 2024-06-23 15:40 | P.DS ---
Providers Date of admission: 06/21/24 23:23 Expected date of discharge: 06/23/24 Attending physician: Abisai Bruno MD Consults: 06/21/24 23:23 Consult Physician Routine Consulting Provider: Levy Peña Consult Reason/Comments: SI Do you want consulting provider notified?: Yes Primary care physician: Girma Eric [facility] Course: Discharge Diagnosis: Intentional overdose Depression and anxiety Alcohol withdraw in active alcoholic Bicytopenia, secondary to daily alcohol abuse Macrocytic anemia, secondary to daily alcohol abuse Hypomagnesemia Chronic systolic heart failure, not in acute exacerbation Paroxysmal atrial fibrillation, currently maintaining sinus mechanism CAD Type A aortic dissection HIV Hypothyroidism Hospital course: Patient is a 63-year-old male with a past medical history of HIV, paroxysmal atrial fibrillation, hypertension, hyperlipidemia, chronic systolic heart failure with previous known EF of 35%, mitral valve repair, type a aortic disse ction, hypothyroidism, depression and anxiety, and alcohol abuse. He presented to the emergency department with complaints of intentional overdose. Per documentation in chart, patient reported that he is a heavy drinker and sometimes goes into dark places and having negative thoughts about ending his life and reports he took too much of his heart medications (but unable to state which ones or how much), patient reported he immediately regretted this decision and is seeking assistance. On arrival to our facility, patient underwent evaluation in the emergency department. Vital signs upon arrival show blood pressure 101/48, heart rate 68, respiratory rate 16, and SpO2 of 97% on room air. EKG completed showing sinus rhythm at 65 bpm with a first-degree AV block with NC interval of 220 ms and previously known left bundle branch block. Labs completed and reviewed. CBC showing normocytic anemia with hemoglobin of 11.6. Chloride 111. Salicylate level less than 1.0. Acetaminophen level less than 10.0. Serum alcohol level elevated at 297. Urine drug screen positive for benzodiazepines and marijuana. Urinalysis negative for infection. Patient admitted under services with consultation to psychiatry. Patient was treated with benzodiazepines for treatment of alcohol withdrawal. He was evaluated by psychiatry stating patient does not meet inpatient criteria recommending outpat ient mental health/psychiatry resources including AA meetings in the community. Psychiatry did not make any medication changes and clearing patient from psychological perspective for discharge. Patient medically optimized and cleared for discharge at this time. Patient to follow-up outpatient with PCP and provided with community resources available to him. Patient strongly encouraged to stop any and all alcohol use. Physical exam: Vital signs reviewed and stable. General: Nontoxic, no distress and appears stated age. Derm: Skin warm and dry, normal coloration for ethnicity. Head: Atraumatic, normocephalic and symmetric. Eyes: EOM's intact, no lid lag, and anicteric sclera Mouth: no lip lesions, mucus membranes moist Cardiovascular: regular rate and rhythm with normal S1S2, systolic murmur, positive posterior tibial pulses bilaterally, and cap refill < 2 seconds. Lungs: Respirations even, regular, and unlabored on room air. Lungs CTA bilaterally, no rhonchi, no rales, no wheezing, and no accessory muscle usage. Abdominal: soft, nontender to palpation, no guarding, no appreciable organomegaly Ext: ROM intact. No gross muscle atrophy, no edema, no contractures Neuro: Speech clear, face symmetrical and CN II-XII grossly intact with no noted focal neuro deficits Psych: Alert and oriented to person, place, time, and situation. Appropriate and pleasant affect. A total of 35 minutes of time were spent preparing this complex discharge summary. Pt was discharged on 06/23/2024 at 3:34 PM. Patient was seen independently by Nurse Practitioner. This document was prepared using [employer] dictation software. Please allow for errors in house painting instructor while rare they do occur. Ismael Mireles NP rendered care for this patient independently, reviewed the findings and plan as documented in the note above. I did not physically speak with or examine the patient on this date. Patient Condition at Discharge: Stable Plan - Discharge Summary New Discharge Prescriptions: Continue Darunavir/Cobicistat [Prezcobix 800 mg-150 mg Tablet] 1 tab PO DAILY Albuterol Sulfate [Albuterol Sulfate Hfa] 2 puff INHALATION RT-QID PRN PRN Reason: Shortness Of Breath Sacubitril/Valsartan [Entresto 24 mg-26 mg Tablet] 1 tab PO BID Levothyroxine Sodium 200 mcg PO DAILY Apixaban [Eliquis] 2.5 mg PO BID Amiodarone [Cordarone] 200 mg PO BID Cholecalciferol [Vitamin D3 (25 Mcg = 1000 Iu)] 25 mcg PO DAILY Mirtazapine 7.5 mg PO HS Multivitamins, Thera [Multivitamin (formulary)] 1 tab PO DAILY Omeprazole [PriLOSEC] 40 mg PO DAILY Rosuvastatin [Crestor] 20 mg PO DAILY Capsaicin Cream [Trixaicin Cream] 1 applic TOPICAL QID Metoprolol Succinate (ER) [Toprol XL] 100 mg PO DAILY Bumetanide [BUMEX] 1 mg PO BID #0 Bictegrav/Emtricit/Tenofov Ala [Biktarvy 50-200-25 mg Tablet] 1 tab PO DAILY Empagliflozin [Jardiance] 10 mg PO DAILY Fenofibrate Nanocrystallized [Fenofibrate] 48 mg PO DAILY oxyCODONE-APAP 10-325MG [Percocet 10-325 mg] 1 tab PO Q6HR PRN 3 Days #12 tab PRN Reason: Pain Bimatoprost [Lumigan 0.01% Ophth Soln] 1 drop BOTH EYES HS allopurinoL 100 mg PO DAILY Thiamine [Vitamin B-1] 100 mg PO DAILY 30 Days #30 tab Lidocaine 5% Patch [Lidoderm 5% Patch] 1 patch TRANSDERM DAILY DULoxetine HCL [Cymbalta] 30 mg PO DAILY #60 cap Discharge Medication List Bictegrav/Emtricit/Tenofov Ala [Biktarvy 50-200-25 mg Tablet] 1 tab PO DAILY 09/07/21 [History] Darunavir/Cobicistat [Prezcobix 800 mg-150 mg Tablet] 1 tab PO DAILY 09/07/22 [History] Albuterol Sulfate [Albuterol Sulfate Hfa] 2 puff INHALATION RT-QID PRN 12/27/23 [History] Empagliflozin [Jardiance] 10 mg PO DAILY 12/27/23 [History] Sacubitril/Valsartan [Entresto 24 mg-26 mg Tablet] 1 tab PO BID 12/27/23 [History] Fenofibrate Nanocrystallized [Fenofibrate] 48 mg PO DAILY 03/17/24 [History] Levothyroxine Sodium 200 mcg PO DAILY 03/17/24 [History] oxyCODONE-APAP 10-325MG [Percocet 10-325 mg] 1 tab PO Q6HR PRN 3 Days #12 tab 03/20/24 [Rx] Apixaban [Eliquis] 2.5 mg PO BID 04/03/24 [History] Bimatoprost [Lumigan 0.01% Ophth Soln] 1 drop BOTH EYES HS 04/03/24 [History] allopurinoL 100 mg PO DAILY 04/03/24 [History] Thiamine [Vitamin B-1] 100 mg PO DAILY 30 Days #30 tab 04/28/24 [Rx] Amiodarone [Cordarone] 200 mg PO BID 05/23/24 [History] Cholecalciferol [Vitamin D3 (25 Mcg = 1000 Iu)] 25 mcg PO DAILY 05/23/24 [History] Lidocaine 5% Patch [Lidoderm 5% Patch] 1 patch TRANSDERM DAILY 05/23/24 [History ] Mirtazapine 7.5 mg PO HS 05/23/24 [History] Multivitamins, Thera [Multivitamin (formulary)] 1 tab PO DAILY 05/23/24 [History] Omeprazole [PriLOSEC] 40 mg PO DAILY 05/23/24 [History] Rosuvastatin [Crestor] 20 mg PO DAILY 05/23/24 [History] DULoxetine HCL [Cymbalta] 30 mg PO DAILY #60 cap 05/24/24 [Rx] Capsaicin Cream [Trixaicin Cream] 1 applic TOPICAL QID 05/31/24 [History] Metoprolol Succinate (ER) [Toprol XL] 100 mg PO DAILY 06/06/24 [History] Bumetanide [BUMEX] 1 mg PO BID #0 06/11/24 [Rx] Follow up Appointment(s)/Referral(s): Girma Malone MD [Primary Care Provider] - 1-2 days [facility] Visiting Nurse, [NON-STAFF] - 1 Week Patient Instructions/Handouts: Depression (DC), Abuse of Alcohol (DC) Discharge/Stand Alone Forms: AA Meetings Dist & - [facility], AA Meetings [place], Who Do I Call?, Community Resources, Outpatient Counseling, Inp Substance Abuse Facilities, Outpatient Therapy List
== END 2024-06-23 18:05 | disposition home or self-care (01) ==
LOC: EC 21:29 → 6NMEDSUR 23:23
PROVIDERS: ADMIT Internal Medicine; ATTEND Internal Medicine
DX: T50.902A Poisoning by unspecified drugs, medicaments and biological substances, intentional self-harm, initial encounter (principal); E83.42 Hypomagnesemia; D53.9 Nutritional anemia, unspecified; D75.9 Disease of blood and blood-forming organs, unspecified; F10.229 Alcohol dependence with intoxication, unspecified; F10.239 Alcohol dependence with withdrawal, unspecified; Y90.8 Blood alcohol level of 240 mg/100 ml or more; F33.2 Major depressive disorder, recurrent severe without psychotic features; E03.9 Hypothyroidism, unspecified; E78.5 Hyperlipidemia, unspecified; F41.1 Generalized anxiety disorder; F43.10 Post-traumatic stress disorder, unspecified; G89.4 Chronic pain syndrome; I11.0 Hypertensive heart disease with heart failure; I50.22 Chronic systolic (congestive) heart failure; I48.0 Paroxysmal atrial fibrillation; I25.10 Atherosclerotic heart disease of native coronary artery without angina pectoris; I44.0 Atrioventricular block, first degree; I44.7 Left bundle-branch block, unspecified; I71.00 Dissection of unspecified site of aorta; J45.909 Unspecified asthma, uncomplicated; M10.9 Gout, unspecified; M79.7 Fibromyalgia; N40.0 Benign prostatic hyperplasia without lower urinary tract symptoms; F11.21 Opioid dependence, in remission; H40.9 Unspecified glaucoma; K21.9 Gastro-esophageal reflux disease without esophagitis; Z21 Asymptomatic human immunodeficiency virus [HIV] infection status; Z72.0 Tobacco use; Z79.01 Long term (current) use of anticoagulants; Z79.84 Long term (current) use of oral hypoglycemic drugs; Z79.890 Hormone replacement therapy; Z79.899 Other long term (current) drug therapy; Z91.51 Personal history of suicidal behavior; Z62.810 Personal history of physical and sexual abuse in childhood
CPT/HCPCS: 96361 ×2; 96365 ×2; 96376; 82075; 96375; 99285; 36415; 94640 ×2; 94760; 93005; 80053 ×3; 83690; 83735 ×2; 85025; 85027 ×2; 81003; 80306; 80143; 80320; 80179; G0378 ×3; J2060; J2405; J3475

== ENCOUNTER 2024-06-29 23:02 | Emergency (ER) | payer MEDICARE, OTHER ==
[2024-06-29 23:09] VITALS: RESP 18
--- NOTE | 2024-06-29 23:58 | ED ---
Chest Pain HPI - General Source: patient Mode of arrival: EMS <BarbaraBartolorobbie - Last Filed: 06/29/24 23:57> - General Source: patient, RN notes reviewed, old records reviewed Limitations: no limitations <Ned Lane - Last Filed: 06/30/24 02:08> - General Chief Complaint: Chest Pain Stated Complaint: ETOH, Chest Pain Time Seen by Provider: 06/29/24 23:57 - History of Present Illness Initial Comments: 63-year-old male presenting with chief complaint of shortness of breath. Patient admits to cough and chest pain. Patient has been drinking tonight, he is a daily drinker (Deb Jimenez) 63 yo male presenting with an episode of chest discomfort. Patient does have cardiac history and also admits to heavy alcohol consumption prior to arrival. Patient denies radiation. Denies vomiting. Denies dyspnea. (Ned Lane) - Related Data Home Medications Medication Instructions Recorded Confirmed Bictegrav/Emtricit/Tenofov Ala 1 tab PO DAILY 09/07/21 06/22/24 [Biktarvy 50-200-25 mg Tablet] Darunavir/Cobicistat [Prezcobix 1 tab PO DAILY 09/07/22 06/22/24 800 mg-150 mg Tablet] Albuterol Sulfate [Albuterol 2 puff INHALATION RT-QID PRN 12/27/23 06/22/24 Sulfate Hfa] Empagliflozin [Jardiance] 10 mg PO DAILY 12/27/23 06/22/24 Sacubitril/Valsartan [Entresto 24 1 tab PO BID 12/27/23 06/22/24 mg-26 mg Tablet] Fenofibrate Nanocrystallized 48 mg PO DAILY 03/17/24 06/22/24 [Fenofibrate] Levothyroxine Sodium 200 mcg PO DAILY 03/17/24 06/22/24 Apixaban [Eliquis] 2.5 mg PO BID 04/03/24 06/22/24 Bimatoprost [Lumigan 0.01% Ophth 1 drop BOTH EYES HS 04/03/24 06/22/24 Soln] allopurinoL 100 mg PO DAILY 04/03/24 06/22/24 Amiodarone [Cordarone] 200 mg PO BID 05/23/24 06/22/24 Cholecalciferol [Vitamin D3 (25 25 mcg PO DAILY 05/23/24 06/22/24 Mcg = 1000 Iu)] Lidocaine 5% Patch [Lidoderm 5% 1 patch TRANSDERM DAILY 05/23/24 06/22/24 Patch] Mirtazapine 7.5 mg PO HS 05/23/24 06/22/24 Multivitamins, Thera [Multivitamin 1 tab PO DAILY 05/23/24 06/22/24 (formulary)] Omeprazole [PriLOSEC] 40 mg PO DAILY 05/23/24 06/22/24 Rosuvastatin [Crestor] 20 mg PO DAILY 05/23/24 06/22/24 Capsaicin Cream [Trixaicin Cream] 1 applic TOPICAL QID 05/31/24 06/22/24 Metoprolol Succinate (ER) [Toprol 100 mg PO DAILY 06/06/24 06/22/24 XL] Previous Rx's Medication Instructions Recorded oxyCODONE-APAP 10-325MG [Percocet 1 tab PO Q6HR PRN 3 Days #12 tab 03/20/24 10-325 mg] Thiamine [Vitamin B-1] 100 mg PO DAILY 30 Days #30 tab 04/28/24 DULoxetine HCL [Cymbalta] 30 mg PO DAILY #60 cap 05/24/24 Bumetanide [BUMEX] 1 mg PO BID #0 06/11/24 Allergies Allergy/AdvReac Type Severity Reaction Status Date / Time abacavir [From Ziagen] Allergy Anaphylaxis Verified 06/29/24 23:09 efavirenz [From Sustiva] Allergy Anaphylaxis Verified 06/29/24 23:09 levofloxacin Allergy Itching Verified 06/29/24 23:09 hydrocodone AdvReac Rapid Verified 06/29/24 23:09 [From [facility] ER] Heart Rate morphine AdvReac Itching Verified 06/29/24 23:09 sulfamethoxazole AdvReac HIGH Verified 06/29/24 23:09 [From Bactrim] CREATININE LEVEL trimethoprim [From Bactrim] AdvReac HIGH Verified 06/29/24 23:09 CREATININE Review of Systems ROS Other: All systems not noted in ROS Statement are negative. <Deb Jimenez - Last Filed: 06/29/24 23:57> ROS Other: All systems not noted in ROS Statement are negative. <Ned Lane - Last Filed: 06/30/24 02:08> ROS Statement: Those systems with pertinent positive or pertinent negative responses have been documented in the HPI. Past Medical History Past Medical History: Atrial Fibrillation, Asthma, Heart Failure, Fibromyalgia, GERD/Reflux, Hypertension, Prostate Disorder Additional Past Medical History / Comment(s): Mitral valve disease w/ MV repair at [facility] [place] 2000, HIV positive, past HTN and recently low blood pressures, BPH, R ankle gout, chronic nausea, bilateral glaucoma, chronic pain syndrome, chronic low back and bilateral hip pain and occasional cervical pain, DDD, lumbar stenosis/spondylosis, abdominal hernia, previous history of drug overdose. PTSD History of Any Multi-Drug Resistant Organisms: None Reported Past Surgical History: Heart Catheterization, Hernia Repair Additional Past Surgical History / Comment(s): Mitral valve repair at [facility] [place] (2000), Type A aortic disection repordedly treated conservatively by [facility] [place], R inguinal hernia x2, L inguinal hernia, epidural injections to back, hip injections, RFAs, spinal cord stimulator trial-removed, Past Anesthesia/Blood Transfusion Reactions: No Reported Reaction Past Psychological History: Anxiety, Depression, PTSD Smoking Status: Former smoker Past Alcohol Use History: Abuse, Daily Past Drug Use History: Prescription Drug Abuse - Past Family History Father History Unknown: Yes Additional Family Medical History / Comment(s): Father was injured at work and of complication during his hospitalization. Mother Additional Family Medical History / Comment(s): Mother is from alcoholism. Brother(s) Additional Family Medical History / Comment(s): alcohol and HF <Deb Jimenez - Last Filed: 06/29/24 23:57> General Exam <Deb Jimenez - Last Filed: 06/29/24 23:57> General appearance: alert, in no apparent distress Head exam: Present: atraumatic, normocephalic Eye exam: Present: normal appearance, PERRL Neck exam: Present: normal inspection. Absent: tenderness, meningismus Respiratory exam: Present: normal lung sounds bilaterally. Absent: respiratory distress, wheezes Cardiovascular Exam: Present: regular rate, normal rhythm GI/Abdominal exam: Present: soft. Absent: distended, tenderness Extremities exam: Present: normal inspection Neurological exam: Present: alert, oriented X3 Skin exam: Present: warm, dry, intact <Ned Lane - Last Filed: 06/30/24 02:08> - General Exam Comments Initial Comments: Visual Physical Exam Vital signs reviewed General: Well-appearing, nontoxic, no acute distress. Head: Normocephalic, atraumatic Eyes: PERRLA, EOMI ENT: Airway patent Chest: Nonlabored breathing Skin: No visual rash, normal skin tone Neuro: Alert and oriented 3 Musculoskeletal: No gross abnormalities (Deb Jimenez) Course <Ned Lane - Last Filed: 06/30/24 02:08> Vital Signs 06/29/24 06/30/24 23:06 01:54 Temperature 72 F L 98.4 F Pulse Rate 72 69 Respiratory 18 18 Rate Blood Pressure 126/64 131/75 O2 Sat by Pulse 97 98 Oximetry - Reevaluation(s) Reevaluation #1: 06/30/24 01:55 Patient requesting discharge. I would prefer the patient receives IV fluid but he states he is able to drink water and (Ned Lane) Chest Pain MDM <Deb Jimenez - Last Filed: 06/29/24 23:57> <Ned Lane - Last Filed: 06/30/24 02:08> - MDM I performed the quick note portion of this visit, electronically signed Deb Jimenez PA-C (Deb Jimenez) Was pt. sent in by a medical professional or institution ([facility]ONN[facility]ai, ASSEMBLY MEMBER, urgent care, hospital, or correction...) When possible be specific @ -No Did you speak to anyone other than the patient for history (EMS, parent, family, police, friend...)? What history was obtained from this source @ -No Did you review nursing and triage notes (agree or disagree)? Why? @ -I reviewed and agree with nursing and triage notes Were old charts reviewed (outside hosp., previous admission, EMS record, old EK G, old radiological studies, urgent care reports/EKG's, correction records)? Report findings @ -No old charts were reviewed Differential Chest Pain: Stable Angina, Unstable Angina, STEMI, NSTEMI Aortic Dissection, Pneumothorax, Musculoskeletal, Esophageal Spasm GERD, Cholecystitis, Pancreatitis, Zoster, this is not meant to be an all-inclusive list. EKG interpreted by me (3pts min.). @ -EKG: Atrial fibrillation, left bundle branch block rate of 74, QRS duration 140, QTc 504, history of left bundle branch block and atrial fibrillation. X-rays interpreted by me (1pt min.). @ -Chest x-ray is negative for acute cardiopulmonary findings CT interpreted by me (1pt min.). @ -None done U/S interpreted by me (1pt. min.). @ -None done What testing was considered but not performed or refused? (CT, X-rays, U/S, labs)? Why? @ -None What meds were considered but not given or refused? Why? @ -None Did you discuss the management of the patient with other professionals (professionals i.e. , PA, ASSEMBLY MEMBER, lab, RT, psych nurse, social work therapist, jewelry designer, teacher, cra officer, rn case manager)? Give summary @ -No Was smoking cessation discussed for >3mins.? @ -No Was critical care preformed (if so, how long)? @ -No Were there social determinants of health that impacted care today? How? (Homelessness, low income, unemployed, alcoholism, drug addiction, transportation, low edu. Level, literacy, decrease access to med. care, penitentiary, rehab)? @ -No Was there de-escalation of care discussed even if they declined (Discuss DNR or withdrawal of care, Hospice)? DNR status @ -No What co-morbidities impacted this encounter? (DM, HTN, Smoking, COPD, CAD, Cancer, CVA, ARF, Chemo, Hep., AIDS, mental health diagnosis, sleep apnea, morbid obesity)? @ -CAD, chronic alcohol abuse Was patient admitted / discharged? Hospital course, mention meds given and route, prescriptions, significant lab abnormalities, going to OR and other pertinent info. @63-year-old male presenting with complaint of an episode of chest pain. Pain resolved at the time my evaluation. EKG shows left bundle branch block which is chronic. Patient has elevated sodium with otherwise normal laboratory testing including negative troponin. I did prefer to give the patient normal saline as he is likely dehydrated from alcohol abuse. Patient declines. He is alert and oriented x 3 and able to make his own decisions. He is eager for discharge. He has no further symptoms. He is being picked up by family member. Undiagnosed new problem with uncertain prognosis? @ -No Drug Therapy requiring intensive monitoring for toxicity (Heparin, Nitro, Insulin, Cardizem)? @ -No Were any procedures done? @ -No Diagnosis/symptom? @ -[Chest pain, alcohol abuse Acute, or Chronic, or Acute on Chronic? @ -Acute on chronic Uncomplicated (without systemic symptoms) or Complicated (systemic symptoms)? @ -Default Side effects of treatment? @ -No Exacerbation, Progression, or Severe Exacerbation? @ -No Poses a threat to life or bodily function? How? (Chest pain, USA, ID, pneumonia, PE, COPD, DKA, ARF, appy, cholecystitis, CVA, Diverticulitis, Homicidal, Suicidal, threat to staff... and all critical care pts) @ -Moderate risk (Ned Lane) Disposition <Deb Jimenez - Last Filed: 06/29/24 23:57> Is patient prescribed a controlled substance at d/c from ED?: No Time of Disposition: 01:56 <[address]ed [address] - Last Filed: 06/30/24 02:08> Clinical Impression: Chronic pain syndrome, Chest pain Disposition: HOME SELF-CARE Condition: Fair Instructions (If sedation given, give patient instructions): Chest Pain (ED) Referrals: Girma Malone MD [Primary Care Provider] - 1-2 days
[2024-06-30 01:00] LABS: INR 0.9 (<1.2); Prothrombin Time 10.5 sec (10.0-12.5)
[2024-06-30 01:21] LABS: Anisocytosis Slight; Basophils # (A) 0.1 k/uL (0-0.2); Basophils % (A) 1 %; Eosinophils # (A) 0.1 k/uL (0-0.7); Eosinophils % (A) 1 %; HCT 38.8 % (39.0-53.0); HGB 12.6 gm/dL (13.0-17.5); Lymphocytes # (A) 2.4 k/uL (1.0-4.8); Lymphocytes % (A) 49 %; MCH 31.3 pg (25.0-35.0); MCHC 32.6 g/dL (31.0-37.0); MCV 96.1 fL (80.0-100.0); Mean Platelet Volume 8.8; Monocytes # (A) 0.2 k/uL (0-1.0); Monocytes % (A) 5 %; Neutrophils # (A) 2.2 k/uL (1.3-7.7); Neutrophils % (A) 44 %; Platelet Count 221 k/uL (150-450); RBC 4.04 m/uL (4.30-5.90); RDW 16.8 % (11.5-15.5)
[2024-06-30 01:25] LABS: ALT 11 U/L (4-49); AST 22 U/L (17-59); African American GFR (CKD) 89 (>60 ml/min/1.73 sqM); Albumin 4.2 g/dL (3.5-5.0); Alkaline Phosphatase 93 U/L (38-126); Anion Gap 17 mmol/L; Blood Urea Nitrogen 16 mg/dL (9-20); Calcium 8.8 mg/dL (8.4-10.2); Carbon Dioxide 20 mmol/L (22-30); Chloride 112 mmol/L (98-107); Glucose 125 mg/dL (74-99); Lipase 177 U/L (23-300); Non-African American GFR(CKD) 77 (>60 ml/min/1.73 sqM); Potassium 4.3 mmol/L (3.5-5.1); Sodium 149 mmol/L (137-145); Total Bilirubin 0.2 mg/dL (0.2-1.3); Total Protein 7.6 g/dL (6.3-8.2)
[2024-06-30] MEDS ORDERED: SODIUM CHLORIDE 0.9% 1,000 ML IV ONE (01:46)
[2024-06-30 01:55] VITALS: BP 131/75; PULSE 69; TEMP 98.4
--- NOTE | 2024-06-30 03:06 | XR ---
EXAM: XR Chest, 2 Views CLINICAL HISTORY: ITS.REASON XR Reason: Chest Pain TECHNIQUE: Frontal and lateral views of the chest. COMPARISON: X-ray chest: 06/15/2024 FINDINGS: Lungs: Hyperinflated lungs/emphysema. Bibasilar chronic interstitial thickening. No consolidation. Pleural space: Unremarkable. No pneumothorax. Heart: No cardiomegaly. Mediastinum: Atherosclerotic tortuosity of the thoracic aorta. Normal mediastinal contour. Bones/joints: Osteopenia. Increased thoracic kyphosis.. No acute fracture. Median sternotomy.. IMPRESSION: No acute cardiopulmonary process. .
== END 2024-06-30 02:00 | disposition home or self-care (01) ==
LOC: EC 23:02
DX: R07.9 Chest pain, unspecified (principal); G89.4 Chronic pain syndrome; I25.10 Atherosclerotic heart disease of native coronary artery without angina pectoris; Z87.891 Personal history of nicotine dependence; Z88.1 Allergy status to other antibiotic agents; Z88.2 Allergy status to sulfonamides; Z88.5 Allergy status to narcotic agent; Z88.8 Allergy status to other drugs, medicaments and biological substances
CPT/HCPCS: 36415; 71046; 80053; 83690; 83735; 84484; 85025; 85610; 85730; 87636; 93005; 99285

== ENCOUNTER 2024-06-30 15:24 | Emergency (ER) | payer MEDICARE, OTHER ==
--- NOTE | 2024-06-30 16:18 | ED ---
Alcohol HPI - General Source: EMS, RN notes reviewed Mode of arrival: EMS Limitations: no limitations <Lulú Owens - Last Filed: 06/30/24 16:17> <Ned Lane - Last Filed: 06/30/24 23:20> - General Chief Complaint: Alcohol Stated Complaint: ETOH withdrawal Time Seen by Provider: 06/30/24 16:17 - History of Present Illness Initial Comments: Quick [id number] male with history of alcohol use disorder presenting to the ER for alcohol withdrawal. States last drink was 2 AM last night. Around 10 AM this morning began to feel nauseous with constant dry heaving. He is also experiencing shakiness. (Lulú Owens) 63-year-old male well-known to this emergency department with an episode of nausea vomiting. No abdominal pain. No fever. Patient believes this is related to alcohol withdrawal. Patient states his last drink was over 24 hours ago. (Ned Lane) - Related Data Home Medications Medication Instructions Recorded Confirmed Bictegrav/Emtricit/Tenofov Ala 1 tab PO DAILY 09/07/21 06/22/24 [Biktarvy 50-200-25 mg Tablet] Darunavir/Cobicistat [Prezcobix 1 tab PO DAILY 09/07/22 06/22/24 800 mg-150 mg Tablet] Albuterol Sulfate [Albuterol 2 puff INHALATION RT-QID PRN 12/27/23 06/22/24 Sulfate Hfa] Empagliflozin [Jardiance] 10 mg PO DAILY 12/27/23 06/22/24 Sacubitril/Valsartan [Entresto 24 1 tab PO BID 12/27/23 06/22/24 mg-26 mg Tablet] Fenofibrate Nanocrystallized 48 mg PO DAILY 03/17/24 06/22/24 [Fenofibrate] Levothyroxine Sodium 200 mcg PO DAILY 03/17/24 06/22/24 Apixaban [Eliquis] 2.5 mg PO BID 04/03/24 06/22/24 Bimatoprost [Lumigan 0.01% Ophth 1 drop BOTH EYES HS 04/03/24 06/22/24 Soln] allopurinoL 100 mg PO DAILY 04/03/24 06/22/24 Amiodarone [Cordarone] 200 mg PO BID 05/23/24 06/22/24 Cholecalciferol [Vitamin D3 (25 25 mcg PO DAILY 05/23/24 06/22/24 Mcg = 1000 Iu)] Lidocaine 5% Patch [Lidoderm 5% 1 patch TRANSDERM DAILY 05/23/24 06/22/24 Patch] Mirtazapine 7.5 mg PO HS 05/23/24 06/22/24 Multivitamins, Thera [Multivitamin 1 tab PO DAILY 05/23/24 06/22/24 (formulary)] Omeprazole [PriLOSEC] 40 mg PO DAILY 05/23/24 06/22/24 Rosuvastatin [Crestor] 20 mg PO DAILY 05/23/24 06/22/24 Capsaicin Cream [Trixaicin Cream] 1 applic TOPICAL QID 05/31/24 06/22/24 Metoprolol Succinate (ER) [Toprol 100 mg PO DAILY 06/06/24 06/22/24 XL] Previous Rx's Medication Instructions Recorded oxyCODONE-APAP 10-325MG [Percocet 1 tab PO Q6HR PRN 3 Days #12 tab 03/20/24 10-325 mg] Thiamine [Vitamin B-1] 100 mg PO DAILY 30 Days #30 tab 04/28/24 DULoxetine HCL [Cymbalta] 30 mg PO DAILY #60 cap 05/24/24 Bumetanide [BUMEX] 1 mg PO BID #0 06/11/24 Allergies Allergy/AdvReac Type Severity Reaction Status Date / Time abacavir [From Ziagen] Allergy Anaphylaxis Verified 06/30/24 15:33 efavirenz [From Sustiva] Allergy Anaphylaxis Verified 06/30/24 15:33 levofloxacin Allergy Itching Verified 06/30/24 15:33 hydrocodone AdvReac Rapid Verified 06/30/24 15:33 [From [facility]] Heart Rate morphine AdvReac Itching Verified 06/30/24 15:33 sulfamethoxazole AdvReac HIGH Verified 06/30/24 15:33 [From Bactrim] CREATININE LEVEL trimethoprim [From Bactrim] AdvReac HIGH Verified 06/30/24 15:33 CREATININE Review of Systems ROS Other: All systems not noted in ROS Statement are negative. <Lulú Owens - Last Filed: 12/30/24 16:17> ROS Other: All systems not noted in ROS Statement are negative. <Ned Lane - Last Filed: 06/30/24 23:20> ROS Statement: Those systems with pertinent positive or pertinent negative responses have been documented in the HPI. Past Medical History Past Medical History: Atrial Fibrillation, Asthma, Heart Failure, Fibromyalgia, GERD/Reflux, Hypertension, Prostate Disorder Additional Past Medical History / Comment(s): Mitral valve disease w/ MV repair at [facility] 2000, HIV positive, past HTN and recently low blood pressures, BPH, R ankle gout, chronic nausea, bilateral glaucoma, chronic pain syndrome, chronic low back and bilateral hip pain and occasional cervical pain, DDD, lumbar sten osis/spondylosis, abdominal hernia, previous history of drug overdose. PTSD History of Any Multi-Drug Resistant Organisms: None Reported Past Surgical History: Heart Catheterization, Hernia Repair Additional Past Surgical History / Comment(s): Mitral valve repair at [facility] (2000), Type A aortic disection repordedly treated conservatively by [facility], R inguinal hernia x2, L inguinal hernia, epidural injections to back, hip injections, RFAs, spinal cord stimulator trial-removed, Past Anesthesia/Blood Transfusion Reactions: No Reported Reaction Past Psychological History: Anxiety, Depression, PTSD Smoking Status: Former smoker Past Alcohol Use History: Abuse, Daily Past Drug Use History: Prescription Drug Abuse - Past Family History Father History Unknown: Yes Additional Family Medical History / Comment(s): Father was injured at work and of complication during his hospitalization. Mother Additional Family Medical History / Comment(s): Mother is from alcoholism. Brother(s) Additional Family Medical History / Comment(s): alcohol and HF <Lulú Owens - Last Filed: 06/30/24 16:17> General Exam Limitations: no limitations <Lulú Owens - Last Filed: 06/30/24 16:17> General appearance: alert, in no apparent distress Head exam: Present: atraumatic, normocephalic Eye exam: Present: normal appearance, PERRL ENT exam: Present: normal exam Neck exam: Present: normal inspection. Absent: tenderness, meningismus Respiratory exam: Present: normal lung sounds bilaterally. Absent: respiratory distress, wheezes Cardiovascular Exam: Present: regular rate, normal rhythm GI/Abdominal exam: Present: soft. Absent: distended, tenderness Neurological exam: Present: alert, oriented X3, CN II-XII intact. Absent: motor sensory deficit Psychiatric exam: Present: normal affect, normal mood. Absent: suicidal ryan ation Skin exam: Present: warm, dry, intact <Ned Lane - Last Filed: 06/30/24 23:20> - General Exam Comments Initial Comments: Visual Physical Exam Vital signs reviewed General: Well-appearing, nontoxic, no acute distress. Head: Normocephalic, atraumatic Eyes: PERRLA, EOMI ENT: Airway patent Chest: Nonlabored breathing Skin: No visual rash, normal skin tone Neuro: Alert and oriented 3 Musculoskeletal: No gross abnormalities (Lulú Owens) Course Vital Signs 06/30/24 06/30/24 15:31 20:58 Temperature 97.6 F 97.6 F Pulse Rate 85 100 Respiratory 18 18 Rate Blood Pressure 176/95 170/80 O2 Sat by Pulse 96 98 Oximetry Medical Decision Making <Lulú Owens - Last Filed: 06/30/24 16:17> - Lab Data Result diagrams: 06/30/24 18:16 06/30/24 18:16 <Ned Lane - Last Filed: 06/30/24 23:20> - Medical Decision Making I completed the quick note portion of this chart signed Lulú Owens PA-C (Lulú Owens) Was pt. sent in by a medical professional or institution ([facility], [facility] [employer], urgent care, hospital, or [facility]...) When possible be specific @ -No Did you speak to anyone other than the patient for history (EMS, parent, family, police, friend...)? What history was obtained from this source @ -No Did you review nursing and triage notes (agree or disagree)? Why? @ -I reviewed and agree with nursing and triage notes Were old charts reviewed (outside hosp., previous admission, EMS record, old EKG, old radiological studies, urgent care reports/EKG's, [facility] records)? Report findings @ -No old charts were reviewed Differential Diagnosis: Anxiety, dehydration, alcohol withdrawal, delirium tremens EKG interpreted by me (3pts min.). @ -As above X-rays interpreted by me (1pt min.). @ -None done CT interpreted by me (1pt min.). @ -None done U/S interpreted by me (1pt. min.). @ -None done What testing was considered but not performed or refused? (CT, X-rays, U/S, labs)? Why? @ -None What meds were considered but not given or refused? Why? @ -None Did you discuss the management of the patient with other professionals (professionals i.e. Dr., PA, HAND ZIPPER TRIMMER, lab, RT, psych nurse, social media senior associate, industry segment specialist, teacher, career services officer, outpatient case manager)? Give summary @ -No Was smoking cessation discussed for >3mins.? @ -No Was critical care preformed (if so, how long)? @ -No Were there social determinants of health that impacted care today? How? (Homelessness, low income, unemployed, alcoholism, drug addiction, francisco sportation, low edu. Level, literacy, decrease access to med. care, senior living, rehab)? @ -No Was there de-escalation of care discussed even if they declined (Discuss DNR or withdrawal of care, Hospice)? DNR status @ -No What co-morbidities impacted this encounter? (DM, HTN, Smoking, COPD, CAD, Cancer, CVA, ARF, Chemo, Hep., AIDS, mental health diagnosis, sleep apnea, morbid obesity)? @ -[Alcohol abuse Was patient admitted / discharged? Hospital course, mention meds given and route, prescriptions, significant lab abnormalities, going to OR and other pertinent info. @ -63-year-old male presenting with nausea vomiting which he believes is secondary to withdrawal. There is minor tremor on exam no active vomiting while in the emergency department. Laboratory studies compared to yesterday are s table. Patient is given his oral pain medication which she tolerates without vomiting. He is given IV fluids and benzodiazepines. He is reevaluated and states his symptoms are significantly improved. Patient is eager for discharge at this time. Undiagnosed new problem with uncertain prognosis? @ -No Drug Therapy requiring intensive monitoring for toxicity (Heparin, Nitro, Insulin, Cardizem)? @ -No Were any procedures done? @ -No Diagnosis/symptom? @ -[Nausea vomiting, Acute, or Chronic, or Acute on Chronic? @ -Acute on chronic Uncomplicated (without systemic symptoms) or Complicated (systemic symptoms)? @ -Default Side effects of treatment? @ -No Exacerbation, Progression, or Severe Exacerbation? @ -No Poses a threat to life or bodily function? How? (Chest pain, [place], [place], pneumonia, PE, COPD, DKA, ARF, appy, cholecystitis, CVA, Diverticulitis, Homicidal, Suicidal, threat to staff... and all critical care pts) @ -[Low risk at this time (Ned Lane) - Lab Data Lab Results 06/30/24 06/30/24 06/30/24 Range/Units 18:16 18:16 18:16 WBC 7.8 (3.8-10.6) k/uL RBC 4.38 (4.30-5.90) m/uL Hgb 13.8 (13.0-17.5) gm/dL Hct 42.5 (39.0-53.0) % MCV 97.1 (80.0-100.0) fL MCH 31.6 (25.0-35.0) pg MCHC 32.5 (31.0-37.0) g/dL RDW 16.3 H (11.5-15.5) % Plt Count 217 (150-450) k/uL MPV 8.2 Neutrophils % 77 % Lymphocytes % 16 % Monocytes % 5 % Eosinophils % 0 % Basophils % 1 % Neutrophils # 6.0 (1.3-7.7) k/uL Lymphocytes # 1.3 (1.0-4.8) k/uL Monocytes # 0.4 (0-1.0) k/uL Eosinophils # 0.0 (0-0.7) k/uL Basophils # 0.0 (0-0.2) k/uL Hypochromasia Slight Anisocytosis Slight PT 10.9 (10.0-12.5) sec INR 1.0 (<1.2) Sodium 143 (137-145) mmol/L Potassium 5.5 H (3.5-5.1) mmol/L Chloride 107 (98-107) mmol/L Carbon Dioxide 24 (22-30) mmol/L Anion Gap 12 mmol/L BUN 21 H (9-20) mg/dL Creatinine 1.00 (0.66-1.25) mg/dL Est GFR (CKD-EPI)AfAm >90 (>60 ml/min/1.73 sqM) Est GFR (CKD-EPI)NonAf 81 (>60 ml/min/1.73 sqM) Glucose 139 H (74-99) mg/dL Calcium 9.6 (8.4-10.2) mg/dL Phosphorus 4.1 (2.5-4.5) mg/dL Magnesium 1.8 (1.6-2.3) mg/dL Total Bilirubin 0.8 (0.2-1.3) mg/dL AST 28 (17-59) U/L ALT 15 (4-49) U/L Alkaline Phosphatase 103 (38-126) U/L Total Protein 8.8 H (6.3-8.2) g/dL Albumin 5.0 (3.5-5.0) g/dL Lipase 150 (23-300) U/L Urine Opiates Screen (NotDetected) Ur Oxycodone Screen (NotDetected) Urine Methadone Screen (NotDetected) Ur Barbiturates Screen (NotDetected) U Tricyclic Antidepress (NotDetected) Ur Phencyclidine Scrn (NotDetected) Ur Amphetamines Screen (NotDetected) U Methamphetamines Scrn (NotDetected) U Benzodiazepines Scrn (NotDetected) Urine Cocaine Screen (NotDetected) U Marijuana (THC) Screen (NotDetected) Serum Alcohol <10 mg/dL 06/30/24 Range/Units 22:28 WBC (3.8-10.6) k/uL RBC (4.30-5.90) m/uL Hgb (13.0-17.5) gm/dL Hct (39.0-53.0) % MCV (80.0-100.0) fL MCH (25.0-35.0) pg MCHC (31.0-37.0) g/dL RDW (11.5-15.5) % Plt Count (150-450) k/uL MPV Neutrophils % % Lymphocytes % % Monocytes % % Eosinophils % % Basophils % % Neutrophils # (1.3-7.7) k/uL Lymphocytes # (1.0-4.8) k/uL Monocytes # (0-1.0) k/uL Eosinophils # (0-0.7) k/uL Basophils # (0-0.2) k/uL Hypochromasia Anisocytosis PT (10.0-12.5) sec INR (<1.2) Sodium (137-145) mmol/L Potassium (3.5-5.1) mmol/L Chloride (98-107) mmol/L Carbon Dioxide (22-30) mmol/L Anion Gap mmol/L BUN (9-20) mg/dL Creatinine (0.66-1.25) mg/dL Est GFR (CKD-EPI)AfAm (>60 ml/min/1.73 sqM) Est GFR (CKD-EPI)NonAf (>60 ml/min/1.73 sqM) Glucose (74-99) mg/dL Calcium (8.4-10.2) mg/dL Phosphorus (2.5-4.5) mg/dL Magnesium (1.6-2.3) mg/dL Total Bilirubin (0.2-1.3) mg/dL AST (17-59) U/L ALT (4-49) U/L Alkaline Phosphatase (38-126) U/L Total Protein (6.3-8.2) g/dL Albumin (3.5-5.0) g/dL Lipase (23-300) U/L Urine Opiates Screen Not Detected (NotDetected) Ur Oxycodone Screen Not Detected (NotDetected) Urine Methadone Screen Not Detected (NotDetected) Ur Barbiturates Screen Not Detected (NotDetected) U Tricyclic Antidepress Not Detected (NotDetected) Ur Phencyclidine Scrn Not Detected (NotDetected) Ur Amphetamines Screen Not Detected (NotDetected) U Methamphetamines Scrn Not Detected (NotDetected) U Benzodiazepines Scrn Detected H (NotDetected) Urine Cocaine Screen Not Detected (NotDetected) U Marijuana (THC) Screen Detected H (NotDetected) Serum Alcohol mg/dL Disposition <Lulú Owens - Last Filed: 06/30/24 16:17> Is patient prescribed a controlled substance at d/c from ED?: No Time of Disposition: 23:19 <[address] - Last Filed: 06/30/24 23:20> Clinical Impression: Alcohol withdrawal Disposition: HOME SELF-CARE Condition: Fair Instructions (If sedation given, give patient instructions): Alcohol Withdrawal (ED) Additional Instructions: Please go to alcohol rehabilitation. Please follow closely with your primary care provider. Referrals: Girma Malone MD [Primary Care Provider] - 1-2 days
[2024-06-30 18:26] LABS: Anisocytosis Slight; Basophils % (A) 1 %; Eosinophils % (A) 0 %; HCT 42.5 % (39.0-53.0); HGB 13.8 gm/dL (13.0-17.5); Hypochromasia Slight; Lymphocytes # (A) 1.3 k/uL (1.0-4.8); Lymphocytes % (A) 16 %; MCH 31.6 pg (25.0-35.0); MCHC 32.5 g/dL (31.0-37.0); MCV 97.1 fL (80.0-100.0); Mean Platelet Volume 8.2; Monocytes # (A) 0.4 k/uL (0-1.0); Monocytes % (A) 5 %; Neutrophils % (A) 77 %; Platelet Count 217 k/uL (150-450); RBC 4.38 m/uL (4.30-5.90); RDW 16.3 % (11.5-15.5); WBC 7.8 k/uL (3.8-10.6)
[2024-06-30 18:37] LABS: ALT 15 U/L (4-49); AST 28 U/L (17-59); African American GFR (CKD) >90 (>60 ml/min/1.73 sqM); Alcohol <10 mg/dL; Alkaline Phosphatase 103 U/L (38-126); Anion Gap 12 mmol/L; Blood Urea Nitrogen 21 mg/dL (9-20); Calcium 9.6 mg/dL (8.4-10.2); Carbon Dioxide 24 mmol/L (22-30); Chloride 107 mmol/L (98-107); Glucose 139 mg/dL (74-99); Lipase 150 U/L (23-300); Magnesium 1.8 mg/dL (1.6-2.3); Non-African American GFR(CKD) 81 (>60 ml/min/1.73 sqM); Phosphorus 4.1 mg/dL (2.5-4.5); Potassium 5.5 mmol/L (3.5-5.1); Sodium 143 mmol/L (137-145); Total Bilirubin 0.8 mg/dL (0.2-1.3); Total Protein 8.8 g/dL (6.3-8.2)
[2024-06-30 18:38] LABS: Prothrombin Time 10.9 sec (10.0-12.5)
[2024-06-30] MEDS: oxyCODONE-APAP 7.5-325MG 1 EACH TAB PO STA (22:08)
[2024-06-30] MEDS: SODIUM CHLORIDE 0.9% 500 ML 500 ML IV ONE (22:50)
[2024-06-30 22:56] LABS: Amphetamine Screen,Urine Not Detected (NotDetected); Barbiturate Screen,Urine Not Detected (NotDetected); Benzodiazepines Screen,Urine Detected (NotDetected); Cocaine Screen,Urine Not Detected (NotDetected); Methadone Screen, Urine Not Detected (NotDetected); Opiate Screen,Urine Not Detected (NotDetected); Oxycodone Screen, Urine Not Detected (NotDetected); Phencyclidine Screen,Urine Not Detected (NotDetected); Tricyclic Antidepressant,Urine Not Detected (NotDetected); Urn Cannabinoid Scrn Detected (NotDetected)
[2024-06-30] MEDS: LORazepam 2 MG/ML INJ IV STA (23:09)
[2024-07-01 01:16] VITALS: BP 156/82; PULSE 84; RESP 18; TEMP 97.8
== END 2024-07-01 01:25 | disposition home or self-care (01) ==
LOC: EC 15:24
DX: F10.939 Alcohol use, unspecified with withdrawal, unspecified (principal); Z87.891 Personal history of nicotine dependence; Z88.1 Allergy status to other antibiotic agents; Z88.2 Allergy status to sulfonamides; Z88.5 Allergy status to narcotic agent; Z88.8 Allergy status to other drugs, medicaments and biological substances; Y90.0 Blood alcohol level of less than 20 mg/100 ml
CPT/HCPCS: 36415; 80053; 83690; 83735; 84100; 85025; 85610; 80306; 80320; 99285; 96374; 96375; 96361; J2060; J3360

== ENCOUNTER 2025-01-13 17:35 | Observation (INO) | payer MEDICARE, OTHER ==
[2025-01-13 18:06] LABS: Basophils # (A) 0.09 10*3/uL (0.00-0.10); Basophils % (A) 1.2 %; Eosinophils # (A) 0.10 10*3/uL (0.04-0.35); Eosinophils % (A) 1.3 %; HCT 37.2 % (39.6-50.0); HGB 12.8 g/dL (13.0-17.0); Lymphocytes # (A) 4.40 10*3/uL (0.90-5.00); Lymphocytes % (A) 56.8 %; MCH 31.6 pg (27.0-32.0); MCHC 34.4 g/dL (32.0-37.0); MCV 91.9 fL (80.0-97.0); Monocytes # (A) 0.37 10*3/uL (0.20-1.00); Monocytes % (A) 4.8 %; Neutrophils # (A) 2.74 10*3/uL (1.80-7.70); Neutrophils % (A) 35.3 %; Platelet Count 144 10*3/uL (140-440); RBC 4.05 10*6/uL (4.40-5.60); RDW 18.0 % (11.5-14.5); WBC 7.75 10*3/uL (4.50-10.00)
[2025-01-13 18:12] LABS: ALT 12 U/L (4-49); AST 38 U/L (17-59); African American GFR (CKD) >90 (>60 ml/min/1.73 sqM); Albumin 3.4 g/dL (3.5-5.0); Alkaline Phosphatase 136 U/L (38-126); Anion Gap 19 mmol/L; Blood Urea Nitrogen 17 mg/dL (9-20); Calcium 8.3 mg/dL (8.4-10.2); Carbon Dioxide 13 mmol/L (22-30); Chloride 110 mmol/L (98-107); Glucose 123 mg/dL (74-99); Magnesium 1.3 mg/dL (1.6-2.3); Non-African American GFR(CKD) >90 (>60 ml/min/1.73 sqM); Potassium 4.6 mmol/L (3.5-5.1); Sodium 142 mmol/L (137-145); Total Protein 6.5 g/dL (6.3-8.2)
[2025-01-13] MEDS: SODIUM CHLORIDE 0.9% 500 ML 500 ML IV STA (18:14)
[2025-01-13 18:34] LABS: INR 1.0 (<1.2); Partial Thromboplastin Time 25.4 sec (22.0-30.0); Prothrombin Time 11.0 sec (10.0-12.5)
--- NOTE | 2025-01-13 18:47 | ED ---
Chest Pain HPI - General Chief Complaint: Chest Pain Stated Complaint: Afib Time Seen by Provider: 01/13/25 17:40 Source: patient, EMS - History of Present Illness Initial Comments: 64-year-old male with past medical history of A-fib, congestive heart failure, chronic dissection who presents emergency department for alcohol intoxication. Patient states he drank a pint of vodka today. His heart has also been racing. He has a history of A-fib but did not take any of his medications today because he was too busy drinking. Patient has a history of chronic dissection for which he states he was told last month by [facility] that he is not a surgical candidate. He was told that his diagnosis is terminal. Because of this, the patient states that he has been drinking more than usual because he would prefer that he sooner than later. He denies fevers, chills or cough. No numbness, tingling or weakness in his arms or legs. No abdominal pain. No other alleviating, precipitating or modifying factors - Related Data Home Medications Medication Instructions Recorded Confirmed Bictegrav/Emtricit/Tenofov Ala 1 tab PO DAILY 09/07/21 01/13/25 [Biktarvy 50-200-25 mg Tablet] Darunavir/Cobicistat [Prezcobix 1 tab PO DAILY 09/07/22 01/13/25 800 mg-150 mg Tablet] Albuterol Sulfate [Albuterol 2 puff INHALATION RT-Q6H PRN 12/27/23 01/13/25 Sulfate Hfa] Empagliflozin [Jardiance] 10 mg PO DAILY 12/27/23 01/13/25 Sacubitril/Valsartan [Entresto 24 1 tab PO BID 12/27/23 01/13/25 mg-26 mg Tablet] Apixaban [Eliquis] 2.5 mg PO BID 04/03/24 01/13/25 Amiodarone [Cordarone] 200 mg PO DAILY 05/23/24 01/13/25 Rosuvastatin [Crestor] 20 mg PO DAILY 05/23/24 01/13/25 Bumetanide [BUMEX] 1 mg PO DAILY 01/13/25 01/13/25 Folic Acid 1 mg PO DAILY 01/13/25 01/13/25 HYDROcodone/APAP 5-325MG [[place] 1 tab PO BID PRN 01/13/25 01/13/25 5-325] Magnesium Oxide [Mag-Ox] 400 mg PO DAILY 01/13/25 01/13/25 Metoprolol Tartrate [Lopressor] 50 mg PO BID 01/13/25 01/13/25 Pantoprazole [Protonix] 40 mg PO DAILY 01/13/25 01/13/25 QUEtiapine FUMARATE [SEROquel] 25 mg PO HS 01/13/25 01/13/25 Torsemide [Demadex] 40 mg PO DAILY 01/13/25 01/13/25 hydrOXYzine HCL [Atarax] 25 mg PO TID PRN 01/13/25 01/13/25 rOPINIRole HCL [Requip] 0.5 mg PO TID PRN 01/13/25 01/13/25 Allergies Allergy/AdvReac Type Severity Reaction Status Date / Time abacavir [From Ziagen] Allergy Anaphylaxis Verified 01/13/25 17:41 efavirenz [From Sustiva] Allergy Anaphylaxis Verified 01/13/25 17:41 levofloxacin Allergy Itching Verified 01/13/25 17:41 hydrocodone AdvReac Rapid Verified 01/13/25 17:41 [From Hysingla ER] Heart Rate morphine AdvReac Itching Verified 01/13/25 17:41 sulfamethoxazole AdvReac HIGH Verified 01/13/25 17:41 [From Bactrim] CREATININE LEVEL trimethoprim [From Bactrim] AdvReac HIGH Verified 01/13/25 17:41 CREATININE Review of Systems ROS Statement: Those systems with pertinent positive or pertinent negative responses have been documented in the HPI. ROS Other: All systems not noted in ROS Statement are negative. Past Medical History Past Medical History: Atrial Fibrillation, Asthma, Heart Failure, Fibromyalgia, GERD/Reflux, Hypertension, Prostate Disorder Additional Past Medical History / Comment(s): Mitral valve disease w/ MV repair at [facility] 2000, HIV positive, past HTN and recently low blood pressures, BPH, R ankle gout, chronic nausea, bilateral glaucoma, chronic pain syndrome, chronic low back and bilateral hip pain and occasional cervical pain, DDD, lumbar stenosis/spondylosis, abdominal hernia, previous history of drug overdose. PTSD History of Any Multi-Drug Resistant Organisms: None Reported Past Surgical History: Heart Catheterization, Hernia Repair Additional Past Surgical History / Comment(s): Mitral valve repair at [facility] (2000), Type A aortic disection repordedly treated conservatively by [facility], R inguinal hernia x2, L inguinal hernia, epidural injections to back, hip injections, RFAs, spinal cord stimulator trial-removed, Past Anesthesia/Blood Transfusion Reactions: No Reported Reaction Past Psychological History: Anxiety, Depression, PTSD Smoking Status: Former smoker Past Alcohol Use History: Abuse, Daily Past Drug Use History: Prescription Drug Abuse - Past Family History Father History Unknown: Yes Additional Family Medical History / Comment(s): Father was injured at work and of complication during his hospitalization. Mother Additional Family Medical History / Comment(s): Mother is from alcoholism. Brother(s) Additional Family Medical History / Comment(s): alcohol and HF General Exam General appearance: alert, appears intoxicated Head exam: Present: atraumatic, normocephalic, normal inspection Eye exam: Present: normal appearance, PERRL, EOMI. Absent: scleral icterus, conjunctival injection, periorbital swelling ENT exam: Present: normal exam, mucous membranes moist Neck exam: Present: normal inspection. Absent: tenderness, meningismus, lymphadenopathy Respiratory exam: Present: normal lung sounds bilaterally. Absent: respiratory distress, wheezes, rales, rhonchi, stridor Cardiovascular Exam: Present: tachycardia, irregular rhythm, normal heart sounds. Absent: systolic murmur, diastolic murmur, rubs, gallop, clicks GI/Abdominal exam: Present: soft, normal bowel sounds. Absent: distended, tenderness, guarding, rebound, rigid Extremities exam: Present: normal inspection, full ROM, normal capillary refill. Absent: tenderness, pedal edema, joint swelling, calf tenderness Back exam: Present: normal inspection Neurological exam: Present: alert, CN II-XII intact Psychiatric exam: Present: depressed Skin exam: Present: warm, dry, intact, normal color. Absent: rash Course Vital Signs 01/13/25 01/13/25 01/13/25 17:36 17:57 18:14 Temperature 97.7 F Pulse Rate 133 H 133 H 121 H Respiratory 20 20 22 Rate Blood Pressure 113/82 102/73 85/62 O2 Sat by Pulse 97 97 95 Oximetry 01/13/25 01/13/25 19:02 19:45 Temperature 98.4 F Pulse Rate 118 H 112 H Respiratory 20 16 Rate Blood Pressure 109/75 104/72 O2 Sat by Pulse 95 95 Oximetry Chest Pain MDM - MDM Was pt. sent in by a medical professional or institution (BONNIE Rai, RESEARCH LIBRARIAN, urgent care, hospital, or longterm...) When possible be specific @ -No Did you speak to anyone other than the patient for history (EMS, parent, family, police, friend...)? What history was obtained from this source @ -Spoke with the patient's significant other for history Did you review nursing and triage notes (agree or disagree)? Why? @ -I reviewed and agree with nursing and triage notes Were old charts reviewed (outside hosp., previous admission, EMS record, old EKG, old radiological studies, urgent care reports/EKG's, longterm records)? Report findings @ -No old charts were reviewed Differential Diagnosis (chest pain, altered mental status, abdominal pain women, abdominal pain men, vaginal bleeding, weakness, fever, dyspnea, syncope, h eadache, dizziness, GI bleed, back pain, seizure, CVA, palpatations, mental health, musculoskeletal)? @ -Differential Chest Pain: Stable Angina, Unstable Angina, STEMI, NSTEMI Aortic Dissection, Pneumothorax, Musculoskeletal, Esophageal Spasm GERD, Cholecystitis, Pancreatitis, Zoster, this is not meant to be an all-inclusive list. EKG interpreted by me (3pts min.). @ -Yes and demonstrates A-fib with a rate of 129. QRS 146. QTc of 418. No acute ST segment elevations. Mild ST depression V5 V6 X-rays interpreted by me (1pt min.). @ -Yes which demonstrates no acute process CT interpreted by me (1pt min.). @ -None done U/S interpreted by me (1pt. min.). @ -None done What testing was considered but not performed or refused? (CT, X-rays, U/S, labs)? Why? @ -None What meds were considered but not given or refused? Why? @ -None Did you discuss the management of the patient with other professionals (professionals i.e. BONNIE Rai, RESEARCH LIBRARIAN, lab, RT, psych nurse, social welfare research worker, print manager, teacher, welfare officer, field case manager)? Give summary @ -Spoke with Dr. Renee for admission Was smoking cessation discussed for >3mins.? @ -No Was critical care preformed (if so, how long)? @ -No Were there social determinants of health that impacted care today? How? (Homelessness, low income, unemployed, alcoholism, drug addiction, transportation, low edu. Level, literacy, decrease access to med. care, [place] [facility], rehab)? @ -No Was there de-escalation of care discussed even if they declined (Discuss DNR or withdrawal of care, Hospice)? DNR status @ -No What co-morbidities impacted this encounter? (DM, HTN, Smoking, COPD, CAD, Cancer, CVA, ARF, Chemo, Hep., AIDS, mental health diagnosis, sleep apnea, morbid obesity)? @ -A-fib, alcoholism, chronic aortic dissection Was patient admitted / discharged? Hospital course, mention meds given and route, prescriptions, significant lab abnormalities, going to OR and other pertinent info. @ -Upon arrival patient seen and evaluated in bed 3. Thorough history and physical exam was performed. Patient placed on continuous pulse ox and cardiac monitoring. Laboratory studies were conducted. Chest x-ray was performed. Patient was given a Percocet for pain control. Alcohol is 418. He is reporting to depression with suicidal ideations. Patient will be admitted with psych to consult as well as cardiology. Undiagnosed new problem with uncertain prognosis? @ -No Drug Therapy requiring intensive monitoring for toxicity (Heparin, Nitro, Insulin, Cardizem)? @ -No Were any procedures done? @ -No Diagnosis/symptom? @ -Acute alcohol intoxication, acute depression, A-fib with RVR, acute chest pain Acute, or Chronic, or Acute on Chronic? @ -Acute on chronic Uncomplicated (without systemic symptoms) or Complicated (systemic symptoms)? @ -Complicated Side effects of treatment? @ -No Exacerbation, Progression, or Severe Exacerbation? @ -No Poses a threat to life or bodily function? How? (Chest pain, [place], [place], pneumonia, PE, COPD, DKA, ARF, appy, cholecystitis, CVA, Diverticulitis, Homicidal, Suicidal, threat to staff... and all critical care pts) @ -Yes as patient does want to commit suicide Disposition Clinical Impression: Chest pain, A-fib, Alcohol intoxication, Depression Disposition: ADMITTED IP TO THIS HOSP Condition: Stable Is patient prescribed a controlled substance at d/c from ED?: No Referrals: Girma Malone MD [Primary Care Provider] - 1-2 days Time of Disposition: 20:56 Decision to Admit Reason: Admit from EC Decision Date: 01/13/25 Decision Time: 20:56
--- NOTE | 2025-01-13 19:05 | XR ---
EXAMINATION TYPE: XR chest 2V DATE OF EXAM: 01/13/2025 6:51 PM COMPARISON: Chest radiographs from 06/13/2024 TECHNIQUE: XR chest 2V Frontal and lateral views of the chest. CLINICAL INDICATION:Male, 64 years old with history of dysrhythmia; FINDINGS: Patient is rotated which limits evaluation. Lungs/Pleura: There is no evidence of pleural effusion, focal consolidation, or pneumothorax. Pulmonary vascularity: Unremarkable. Heart/mediastinum: Cardiomediastinal silhouette is prominent in size. Musculoskeletal: No acute osseous pathology. Midline sternotomy wires are noted and stable. IMPRESSION: Chronic changes without acute pulmonary process. No significant change from prior. [facility], , 01/13/2025 7:02 PM
[2025-01-13] MEDS: oxyCODONE-APAP 10-325MG 1 EACH TAB PO STA (19:46)
[2025-01-13] MEDS: MAGNESIUM SULFATE-D5W PMX 1 GM in DEXTROSE/WATER 1 100ML.BAG IVPB SCH (20:01)
[2025-01-13] MEDS ORDERED: hydrOXYzine HCL 25 MG TAB PO PRN (20:56)
[2025-01-13] MEDS ORDERED: NALOXONE 0.4 MG/ML 1 ML VIAL IV PRN ×2 (20:57→20:59)
[2025-01-13] MEDS ORDERED: LORazepam 1 MG TAB PO PRN (20:58)
[2025-01-13] MEDS ORDERED: THIAMINE 100 MG TAB PO SCH (21:00)
[2025-01-13] MEDS: METOPROLOL TARTRATE 50 MG TAB PO SCH (21:20)
[2025-01-13] MEDS: AMIODARONE 200 MG TAB PO SCH (21:20)
[2025-01-13] MEDS: SACUBITRIL/VALSARTAN 24 MG-26 MG TABLET PO SCH (21:21)
[2025-01-13] MEDS: chlordiazePOXIDE 25 MG CAP PO SCH (21:21)
[2025-01-13] MEDS: QUEtiapine 25 MG TAB PO SCH (21:21)
[2025-01-13] MEDS: ONDANSETRON 4 MG/2 ML VIAL IVP PRN (21:22)
[2025-01-13] MEDS: APIXABAN 2.5 MG TABLET PO SCH (21:22)
[2025-01-13] MEDS: MELATONIN 3 MG TABLET PO PRN (21:22)
[2025-01-13] MEDS: THIAMINE 250 MG in SODIUM CHLORIDE 0.9% 50 ML IVPB SCH (21:26)
[2025-01-13] MEDS: ASPIRIN 81 MG PO STA (21:26)
--- NOTE | 2025-01-13 23:00 | P.HPIM ---
History of Present Illness H&P Date: 01/13/25 Chief Complaint: chest pain Patient is a 64-year-old male with a PMH of: - A-fib with RVR - CHF HFrEF - Chronic aortic dissection - HIV infection - Alcohol intoxication - Depression comes in to the ED with a chest pain. Patient stated that he has been drinking for the past 3 to 4 days. He described the chest pain as generalized nonreproducible with no radiation. Pain is intermittent, and usually peaks in the morning but subsides after about an hour. Patient has significant cardiac history and he follows up with his supervisor mending Dr. Beal. Patient also mentioned that he was supposed to have a heart cath in [facility] last month, but he stated that they called him and canceled the procedure because of high risk of mortality with all his comorbidities. Since then, patient has been depressed and has been binge drinking. ED course: Patient was given aspirin 324 mg, thiamine, and Percocet 10-325 for pain. Patient denied having headache, change in vision, sore throat, shortness of breath. He is positive for chest pain, abdominal pain, tremors in upper extremities. Imaging: Chest x-ray 01/13 Chronic changes without acute pulmonary process. Labs: WBC 7.75/Hgb 12.8/plt count 144 Glucose 123/ Na 142/ K 4.6/ Cl 110/ CO2 13/ BUN 17/ Cr 0.76 Vitals: T98.4/ HR 112/ O2 sat 95/ BP 104/72 ED documentation reviewed. Review of systems: Pertinent positives and negatives as discussed in HPI, a complete review of systems was performed and all other systems are negative. Physical examination: Vital signs reviewed General: distressed, appears at stated age, normal weight Derm: no unusual rashes/lesions, warm Head: atraumatic, normocephalic, symmetric Eyes: EOMI, anicteric sclera, pupils round reactive to light. ENT: Nose and ears atraumatic Neck: No cervical lymphadenopathy, trachea midline, supple Mouth: no lip lesion, mucus membranes moist Cardiovascular: Tachycardic , S1S2 reg, no murmur, no edema Lungs: CTA bilateral, no rhonchi, no rales, no accessory muscle use Abdominal: soft, tender to palpation in LLQ, no guarding Ext: muscle strength 5 out of 5 in all 4 extremities grossly, no gross muscle atrophy Neuro: CN II-XI grossly intact, no gross focal neuro deficits Psych: Alert, oriented to person, place, and time Assessment/Plan: A 64-year-old male with PMH of A-fib, CHF, HIV comes into the ED for chest pain. #. Atypical chest pain - Troponin negative x 2 - Ordered an echo #. Alcohol intoxication pending withdrawal - High serum alcohol levels -418 on admission - Give thiamine and folic acid supplements - Start Ativan 0.5 mg-2 mg based on CIWA score #. HIV infection - Check CD4 and HIV viral load - Resume Biktarvy 1 tab p.o. daily, and Prezcobix 1 tab p.o. daily. #. A-fib with RVR - Resume Cordarone 200 mg daily and Lopressor 50 mg BID - Resume Eliquis 2.5 mg BID - Follow-up with cardiology outpatient #. CHF-HFrEF - Last echo in April2024, EF 35% - Resume Entresto 24 mg-26 mg BID, Farxiga 5 mg daily DVT prophylaxis: Eliquis 2.5 mg twice daily The patient is admitted with an anticipated no more than 2 midnight stay for evaluation of chest pain CODE STATUS: [] Discussed with: Dr. Renee Anticipated discharge place: Home Adam Baltazar MD PGY-1 IM Dictation was produced using [employer] dictation software. please excuse any gra mmatical, word or spelling errors. Past Medical History Past Medical History: Atrial Fibrillation, Asthma, Heart Failure, Fibromyalgia, GERD/Reflux, Hypertension, Prostate Disorder Additional Past Medical History / Comment(s): Mitral valve disease w/ MV repair at [facility] 2000, HIV positive, past HTN and recently low blood pressures, BPH, R ankle gout, chronic nausea, bilateral glaucoma, chronic pain syndrome, chronic low back and bilateral hip pain and occasional cervical pain, DDD, lumbar stenosis/spondylosis, abdominal hernia, previous history of drug overdose. PTSD History of Any Multi-Drug Resistant Organisms: None Reported Past Surgical History: Heart Catheterization, Hernia Repair Additional Past Surgical History / Comment(s): Mitral valve repair at [facility] (2000), Type A aortic disection repordedly treated conservatively by [facility], R inguinal hernia x2, L inguinal hernia, epidural injections to back, hip injections, RFAs, spinal cord stimulator trial-removed, Past Anesthesia/Blood Transfusion Reactions: No Reported Reaction Past Psychological History: Anxiety, Depression, PTSD Smoking Status: Former smoker Past Alcohol Use History: Abuse, Daily Past Drug Use History: Prescription Drug Abuse - Past Family History Father History Unknown: Yes Additional Family Medical History / Comment(s): Father was injured at work and of complication during his hospitalization. Mother Additional Family Medical History / Comment(s): Mother is from alcoholism. Brother(s) Additional Family Medical History / Comment(s): alcohol and HF Medications and Allergies Home Medications Medication Instructions Recorded Confirmed Type Bictegrav/Emtricit/Tenofov Ala 1 tab PO DAILY 09/07/21 01/13/25 History [Biktarvy 50-200-25 mg Tablet] Darunavir/Cobicistat [Prezcobix 1 tab PO DAILY 09/07/22 01/13/25 History 800 mg-150 mg Tablet] Albuterol Sulfate [Albuterol 2 puff INHALATION RT-Q6H PRN 12/27/23 01/13/25 History Sulfate Hfa] Empagliflozin [Jardiance] 10 mg PO DAILY 12/27/23 01/13/25 History Sacubitril/Valsartan [Entresto 24 1 tab PO BID 12/27/23 01/13/25 History mg-26 mg Tablet] Apixaban [Eliquis] 2.5 mg PO BID 04/03/24 01/13/25 History Amiodarone [Cordarone] 200 mg PO DAILY 05/23/24 01/13/25 History Rosuvastatin [Crestor] 20 mg PO DAILY 05/23/24 01/13/25 History Bumetanide [BUMEX] 1 mg PO DAILY 01/13/25 01/13/25 History Folic Acid 1 mg PO DAILY 01/13/25 01/13/25 History HYDROcodone/APAP 5-325MG [[place] 1 tab PO BID PRN 01/13/25 01/13/25 History 5-325] Magnesium Oxide [Mag-Ox] 400 mg PO DAILY 01/13/25 01/13/25 History Metoprolol Tartrate [Lopressor] 50 mg PO BID 01/13/25 01/13/25 History Pantoprazole [Protonix] 40 mg PO DAILY 01/13/25 01/13/25 History QUEtiapine FUMARATE [SEROquel] 25 mg PO HS 01/13/25 01/13/25 History Torsemide [Demadex] 40 mg PO DAILY 01/13/25 01/13/25 History hydrOXYzine HCL [Atarax] 25 mg PO TID PRN 01/13/25 01/13/25 History rOPINIRole HCL [Requip] 0.5 mg PO TID PRN 01/13/25 01/13/25 History Allergies Allergy/AdvReac Type Severity Reaction Status Date / Time abacavir [From Ziagen] Allergy Anaphylaxis Verified 01/13/25 17:41 efavirenz [From Sustiva] Allergy Anaphylaxis Verified 01/13/25 17:41 levofloxacin Allergy Itching Verified 01/13/25 17:41 hydrocodone AdvReac Rapid Verified 01/13/25 17:41 [From Hysingla ER] Heart Rate morphine AdvReac Itching Verified 01/13/25 17:41 sulfamethoxazole AdvReac HIGH Verified 01/13/25 17:41 [From Bactrim] CREATININE LEVEL trimethoprim [From Bactrim] AdvReac HIGH Verified 01/13/25 17:41 CREATININE Physical Exam Vitals: Vital Signs Temp Pulse Resp BP Pulse Ox 01/13/25 22:05 108 H 18 116/81 95 01/13/25 21:35 112 H 18 121/90 96 01/13/25 19:45 98.4 F 112 H 16 104/72 95 01/13/25 19:02 118 H 20 109/75 95 01/13/25 18:14 121 H 22 85/62 95 01/13/25 17:57 133 H 20 102/73 97 01/13/25 17:36 97.7 F 133 H 20 113/82 97 Intake and Output 01/13/25 01/13/25 01/13/25 06:59 14:59 22:59 Other: Weight 69.853 kg Results CBC & Chem 7: 01/13/25 18:00 01/13/25 18:00 Labs: Abnormal Lab Results - Last 24 Hours (Table) 01/13/25 01/13/25 Range/Units 18:00 18:00 RBC 4.05 L (4.40-5.60) 10*6/uL Hgb 12.8 L (13.0-17.0) g/dL Hct 37.2 L (39.6-50.0) % MPV 9.4 L (9.5-12.2) fL Immature Gran # 0.05 H (0.00-0.04) 10*3/uL Chloride 110 H (98-107) mmol/L Carbon Dioxide 13 L (22-30) mmol/L Glucose 123 H (74-99) mg/dL Calcium 8.3 L (8.4-10.2) mg/dL Magnesium 1.3 L (1.6-2.3) mg/dL Alkaline Phosphatase 136 H (38-126) U/L Albumin 3.4 L (3.5-5.0) g/dL Serum Alcohol 418 H* mg/dL
[2025-01-14] MEDS: LACTATED RINGERS 1,000 ML IV ONE (02:38)
[2025-01-14 02:44] LABS: Barbiturate Screen,Urine Detected (NotDetected); Benzodiazepines Screen,Urine Detected (NotDetected); Opiate Screen,Urine Not Detected (NotDetected); Oxycodone Screen, Urine Not Detected (NotDetected); Phencyclidine Screen,Urine Not Detected (NotDetected); Tricyclic Antidepressant,Urine Not Detected (NotDetected); Urn Cannabinoid Scrn Not Detected (NotDetected)
[2025-01-14 05:47] LABS: Basophils # (A) 0.05 10*3/uL (0.00-0.10); Basophils % (A) 1.5 %; Eosinophils # (A) 0.12 10*3/uL (0.04-0.35); Eosinophils % (A) 3.7 %; HCT 32.1 % (39.6-50.0); HGB 10.7 g/dL (13.0-17.0); Lymphocytes # (A) 1.26 10*3/uL (0.90-5.00); Lymphocytes % (A) 38.7 %; MCH 31.8 pg (27.0-32.0); MCHC 33.3 g/dL (32.0-37.0); MCV 95.3 fL (80.0-97.0); Monocytes # (A) 0.20 10*3/uL (0.20-1.00); Monocytes % (A) 6.1 %; Neutrophils # (A) 1.61 10*3/uL (1.80-7.70); Neutrophils % (A) 49.4 %; Platelet Count 113 10*3/uL (140-440); RBC 3.37 10*6/uL (4.40-5.60); RDW 17.9 % (11.5-14.5); WBC 3.26 10*3/uL (4.50-10.00)
[2025-01-14 06:00] LABS: ALT 9 U/L (4-49); AST 29 U/L (17-59); African American GFR (CKD) >90 (>60 ml/min/1.73 sqM); Albumin 2.6 g/dL (3.5-5.0); Albumin/Globulin Ratio 0.9; Alkaline Phosphatase 116 U/L (38-126); Anion Gap 11 mmol/L; Blood Urea Nitrogen 17 mg/dL (9-20); Calcium 8.1 mg/dL (8.4-10.2); Carbon Dioxide 18 mmol/L (22-30); Chloride 108 mmol/L (98-107); Globulin 2.9 g/dL; Glucose 74 mg/dL (74-99); Non-African American GFR(CKD) >90 (>60 ml/min/1.73 sqM); Potassium 4.6 mmol/L (3.5-5.1); Sodium 137 mmol/L (137-145); Total Protein 5.5 g/dL (6.3-8.2)
[2025-01-14] MEDS: PANTOPRAZOLE 40 MG TABLET PO SCH (06:15)
[2025-01-14] MEDS: LORazepam 1 MG TAB PO PRN ×2 (09:09→16:56)
[2025-01-14] MEDS: ACETAMINOPHEN TAB 325 MG TAB PO PRN (09:12)
[2025-01-14] MEDS: AMIODARONE 100 MG TAB PO SCH (09:14)
[2025-01-14] MEDS: DAPAGLIFLOZIN PROPANEDIOL 5 MG TABLET PO SCH (09:14)
[2025-01-14] MEDS: MULTIVITAMINS, THERA 1 EACH TAB PO SCH (09:15)
[2025-01-14] MEDS: BIKTARVY PO SCH (09:15)
[2025-01-14] MEDS: FOLIC ACID 1 MG TAB PO SCH (09:15)
--- NOTE | 2025-01-14 10:29 | P.PN ---
Subjective Progress Note Date: 01/14/25 Hospital Course: 64-year-old male with past medical history of HIV on antiretroviral, paroxysmal A-fib on Eliquis, HFrEF, history of mitral valve repair, chronic type a aortic dissection, hypothyroidism, depression, anxiety, alcohol abuse, diarrhea, who presented to the ER with alcohol intoxication, chest pain. He described the chest pain as generalized nonreproducible with no radiation. Pain is intermittent, and usually peaks in the morning but subsides after about an hour. Patient has significant cardiac history and he follows up with his motor grader rough grade Dr. Beal. Patient also mentioned that he was supposed to have a heart cath in [facility] last month, but he stated that they called him and canceled the procedure because of high risk of mortality with all his comorbidities. Since then, patient has been depressed and has been binge drinking. During his previous hospitalizations patient had alcohol intoxication and withdrawal, was also complaining of inability to undergo any further treatment for his cardiac condition at [facility]. On admission his heart rate was in 112, he was afebrile with stable but soft blood pressure. Blood work showed normal WBC count hemoglobin of 12.8, sodium and potassium WNL, creatinine normal, magnesium low 1.3, troponin negative. Serum alcohol level was 414 Now admitted as inpatient for further management of alcohol intoxication, withdrawal, chest pain, A-fib with RVR. Per chart review, patient expressed suicidal ideations, psychiatry consulted, cardiology on board. 01/14: Patient seen and examined at bedside, overnight he reported to RN that he is actually not suicidal. No other acute overnight events. He complains of dry heaving, hand shaking, generalized weakness. He states that he still ambulates with a wheelchair after his left hip replacement surgery. His primary care physician arranged for home physical therapy that was supposed to be started today. RN present at bedside during conversation. Patient's CIWA score is 9 t his morning. Cardiology recommended TTE that was performed, amiodarone 100 daily resumed. His heart rate is controlled in 60s now, blood pressure 110/53, satting well on room air. WBC count 3.26, hemoglobin 10.7, no signs of bleeding, possibly hemodilution. Normal sodium, potassium, creatinine, bicarb improved to 18. Pertinent positives and negatives as discussed above, a complete review of s ystems was performed and all other systems are negative. Vitals Signs Reviewed. General: Signs and symptoms of alcohol withdrawal with upper extremity tremors Derm: Warm, dry Head: Atraumatic, normocephalic, symmetric Eyes: EOMI, no lid lag, anicteric sclera Mouth: No lip lesion, mucus membranes moist Cardiovascular: S1S2 reg, no murmur Lungs: CTA bilateral, no rhonchi, no rales, no accessory muscle use Abdominal: Soft, nontender to palpation, no guarding, no appreciable organomegaly Ext: No gross muscle atrophy, no edema, no contractures Neuro: CN II-XI grossly intact, no focal neuro deficits Psych: Alert, oriented, appropriate affect Assessment and Plan: Alcohol intoxication, resolved Alcohol withdrawal Alcohol abuse -Continue CIWA with Ativan, daily thiamine 100 mg p.o. daily, folic acid 1 mg p.o. daily, social work consulted, psychiatry consulted -Continue Librium 50 mg p.o. 3 times daily -Continue Atarax 25 mg p.o. 3 times daily as needed, home dose, Seroquel 25 mg p.o. nightly Generalized weakness -Per patient, home PT is set up by PCP Chest pain, atypical Troponin negative x 2 Consult cardiology, appreciate -TTE ordered and pending Chronic diarrhea, no constipated - Last bowel movement 2 days ago, refused stool softeners due to chronic diarrhea Atrial fibrillation Continue with amiodarone 100 mg p.o. daily Continue with Eliquis 2.5 mg p.o. twice daily Continue with metoprolol tartrate 50 mg p.o. twice daily Chronic systolic heart failure, not in exacerbation Continue with Bumex 1 mg p.o. daily, Farxiga 5 mg p.o. daily, Lopressor 50 mg p.o. twice daily, Entresto twice daily Type a aortic dissection Stable HIV Continue with Biktarvy 1 tab p.o. daily and Prezcobix 1 tab p.o. daily DVT prophylaxis: Eliquis 2.5 mg p.o. twice daily Code status: DNR/DNI Anticipated discharge place: Home with home care, has home physical therapy set up already by PCP Anticipated discharge time: 24 to 48 hours Objective - Vital Signs Vital signs: Vital Signs Temp 98.1 F 01/14/25 07:09 Pulse 58 L 01/14/25 07:09 Resp 18 01/14/25 07:09 BP 110/53 01/14/25 07:09 Pulse Ox 96 01/14/25 07:09 FiO2 Intake & Output 01/13/25 01/14/25 01/14/25 18:59 06:59 18:59 Intake Total 118 Balance 118 Weight 69.853 kg 69.853 kg Intake: Oral 118 Other: # Voids 1 # Bowel Movements 1 - Labs CBC & Chem 7: 01/14/25 04:34 01/14/25 04:34 Labs: Abnormal Lab Results - Last 24 Hours (Table) 01/13/25 01/13/25 01/14/25 Range/Units 18:00 18:00 01:17 WBC (4.50-10.00) 10*3/uL RBC 4.05 L (4.40-5.60) 10*6/uL Hgb 12.8 L (13.0-17.0) g/dL Hct 37.2 L (39.6-50.0) % Plt Count (140-440) 10*3/uL MPV 9.4 L (9.5-12.2) fL Immature Gran # 0.05 H (0.00-0.04) 10*3/uL Neutrophils # (1.80-7.70) 10*3/uL Chloride 110 H (98-107) mmol/L Carbon Dioxide 13 L (22-30) mmol/L Glucose 123 H (74-99) mg/dL Calcium 8.3 L (8.4-10.2) mg/dL Magnesium 1.3 L (1.6-2.3) mg/dL Alkaline Phosphatase 136 H (38-126) U/L Total Protein (6.3-8.2) g/dL Albumin 3.4 L (3.5-5.0) g/dL Ur Barbiturates Screen Detected H (NotDetected) U Benzodiazepines Scrn Detected H (NotDetected) Serum Alcohol 418 H* mg/dL 01/14/25 01/14/25 Range/Units 04:34 04:34 WBC 3.26 L (4.50-10.00) 10*3/uL RBC 3.37 L (4.40-5.60) 10*6/uL Hgb 10.7 L (13.0-17.0) g/dL Hct 32.1 L (39.6-50.0) % Plt Count 113 L (140-440) 10*3/uL MPV (9.5-12.2) fL Immature Gran # (0.00-0.04) 10*3/uL Neutrophils # 1.61 L (1.80-7.70) 10*3/uL Chloride 108 H (98-107) mmol/L Carbon Dioxide 18 L (22-30) mmol/L Glucose (74-99) mg/dL Calcium 8.1 L (8.4-10.2) mg/dL Magnesium (1.6-2.3) mg/dL Alkaline Phosphatase (38-126) U/L Total Protein 5.5 L (6.3-8.2) g/dL Albumin 2.6 L (3.5-5.0) g/dL Ur Barbiturates Screen (NotDetected) U Benzodiazepines Scrn (NotDetected) Serum Alcohol mg/dL
--- NOTE | 2025-01-14 11:24 | P.CN ---
Psychiatric Consult - . Consult date: 01/14/25 Consult:: 01/14/25 11:05 IDENTIFYING DATA: This patient is a 63-year-old male, , lives with his in a house, they have no kids, employed Social Security disability REASON FOR REFERRAL: Psychiatry was consulted for depression HISTORY OF PRESENT ILLNESS: The patient presented to the hospital with alcohol intoxication, and apparently has several medical comorbidities. Patient has A- fib, CHF and apparent he has aortic dissection which appears to be worsening. Patient's urine drug she is positive for barbiturates, benzodiazepines. Blood alcohol level was 418 on admission now down to 64. Patient was seen today for hung hilliard for depression. Patient was previously on Cymbalta and Remeron as recommended previously by psychiatric consultation by Dr. Ross. Patient was seen lying in bed today agreeable to speak to lead technical writer. He claims that he "keep getting into the liquor" and states that he was drinking about 1/5 of vodka a day. Claims that he was having palpitations and racing heart. Claims that he came to the hospital after that. He is not reporting any depression at this time denying any anxiety. Is reporting very mild withdrawal symptoms mild tremors. Claims that he did receive bad news from his cardiac surgeon about his condition about a month ago that they would not be able to operate on him. He states that he is not interested in anticraving medications for alcohol and "quit on my own" and does not want any rehab at this time. He was encouraged to make an appointment with [facility] to follow-up with psychiatry. At this time patient denies any suicidal or homical ideations, intent or plan. Patient denies any auditory, visual hallucinations and denies any paranoia or delusions. Patient's nurse states that patient has been not having any behavioral issues and not reporting any suicidal thoughts. He states that his appetite and sleep are fair at this time. PAST PSYCHIATRIC HISTORY: Patient has a a history of depression, alcohol use disorder, anxiety. Patient was previously on Remeron 7.5 mg at bedtime, Cymbalta 30 mg daily however states that he has been off the medications for several months now and does not want to be on any antidepressants. Patient most recently was admitted to the behavioral health unit back in April 2024. Patient denies any psychiatric outpatient follow-up. Patient has 1 prior suicide attempt in the past PAST MEDICAL HISTORY: A-fib, asthma, heart failure, fibromyalgia, GERD, hypertension, mitral valve disease. ALLERGIES: as per EMR. CHEMICAL DEPENDENCY HISTORY: as per HPI. FAMILY PSYCHIATRIC/SUBSTANCE USE HISTORY: Patient reports strong family history of alcohol use disorder SOCIAL HISTORY: Patient was born and raised in for [place]. He is and has no children. He is on disability. He completed school up to 10th grade. Currently lives with his in a house. Denies any legal history MENTAL STATUS EXAM: General Appearance: Patient appears to be stated age is alert, pleasant, and cooperative. Patient appears to have fair hygiene and grooming wearing hospital gown with fair eye contact. He wears glasses Behavior: Patient is calmly lying in bed without any agitated behavior. Attempts to cooperate Speech: Patient's speech is fluent and nonpressured. Mood/Affect: Patient reports their mood is "ok", affect is congruent, constricted Suicidality/Homicidality: Patient denies having any suicidal or homicidal ideat ion intent or plan. Perceptions: Patient denies any visual hallucinations and denies any auditory hallucinations Though content/process: There is no evidence of any delusional thought content and thought process is linear and goal-directed. Memory and concentration: AOX3, grossly intact for the purposes of this session. Can spell "WORLD" backwards Judgment and insight: Poor, improving IMPRESSIONS: Depressive disorder unspecified Alcohol use disorder, severe, currently in withdrawal Generalized anxiety disorder PLAN: -At this time patient DOES NOT meet criteria for inpatient psychiatric admission. -Would recommend the following medication changes/additions: Attended to speak with the patient about different options for antidepressant medications and to help with his anxiety however patient is not interested at this time. He also declined any anticraving medications for alcohol use. can continue with current seroquel and librium taper for etoh withdrawal. -bin worker to provide patient with outpatient mental health/psychiatry resources for appropriate follow up upon discharge -Mining Captain spoke with patient about substance abuse and the harmful effects on medical and mental health, patient verbally understood and agreed. -bin worker to provide patient substance use treatment resources including AA/NA meetings in the community. He is not interested in going to rehab at this time -Communicated plan to patient's nurse -Psychiatry will sign off at this time -Please contact with any questions. 01/14/25 11:18 01/14/25 11:23
[2025-01-14] MEDS: BUMETANIDE 1 MG TAB PO SCH (12:18)
[2025-01-14] MEDS: THIAMINE 250 MG in SODIUM CHLORIDE 0.9% 50 ML IVPB SCH (12:18)
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
--- NOTE | 2025-01-14 12:33 | CA ---
Transthoracic Echo Report Name: Ned Toledo Age: 64 Gender: M : 1960 Exam Date: 01/14/2025 07:40 Exam Location: [facility] Ht (in): 67 Wt (lb): 154 Ordering Physician: Adam Baltazar MD Attending/Referring Phys: Metallurgical Inspector Ned Gray RDCS Procedure CPT: Indications: chest pain and chronic aortic dissection Cardiac Hx: Technical Quality: Fair Contrast 1: Total Dose (mL): Contrast 2: Total Dose (mL): MEASUREMENTS (Male / Female) Normal Values 2D ECHO LV Diastolic Diameter PLAX 5.3 cm 4.2 - 5.9 / 3.9 - 5.3 cm LV Systolic Diameter PLAX 4.5 cm IVS Diastolic Thickness 1.2 cm 0.6 - 1.0 / 0.6 - 0.9 cm LVPW Diastolic Thickness 1.4 cm 0.6 - 1.0 / 0.6 - 0.9 cm LV Relative Wall Thickness 0.5 RV Internal Dim ED PLAX 4.1 cm LA Systolic Diameter LX 4.7 cm 3.0 - 4.0 / 2.7 - 3.8 cm LV Diastolic Volume MOD BP 165.2 cm??? 67 - 155 / 56 - 104 cm??? LV Systolic Volume MOD BP 102.0 cm??? 22 - 58 / 19 - 49 cm??? LV Ejection Fraction MOD BP 38.2 % >= 55 % LV Cardiac Index MOD BP 2456.6 cm???/min???m??? LV Diastolic Volume MOD 4C 159.0 cm??? LV Systolic Volume MOD 4C 112.2 cm??? LV Ejection Fraction MOD 4C 29.5 % LV Cardiac Index MOD 4C 1823.0 cm???/min???m??? LV Diastolic Length 4C 8.9 cm LV Systolic Length 4C 7.9 cm LV Diastolic Volume MOD 2C 169.2 cm??? LV Systolic Volume MOD 2C 92.8 cm??? LV Ejection Fraction MOD 2C 45.2 % LV Cardiac Index MOD 2C 2975.1 cm???/min???m??? LV Diastolic Length 2C 9.1 cm LV Systolic Length 2C 7.9 cm LA Volume 124.4 cm??? 18 - 58 / 22 - 52 cm??? LA Volume Index 68.2 cm???/m??? 16 - 28 cm???/m??? M-MODE Aortic Root Diameter MM 4.4 cm LA Systolic Diameter MM 5.1 cm LA Ao Ratio MM 1.2 AV Cusp Separation MM 2.3 cm DOPPLER AV Peak Velocity 105.8 cm/s AV Peak Gradient 4.5 mmHg AV Mean Velocity 76.4 cm/s AV Mean Gradient 2.6 mmHg AV Velocity Time Integral 21.2 cm LVOT Peak Velocity 65.8 cm/s LVOT Peak Gradient 1.7 mmHg LVOT Velocity Time Integral 12.4 cm MV Peak Velocity 143.3 cm/s MV Peak Gradient 8.2 mmHg MV Mean Velocity 76.9 cm/s MV Mean Gradient 3.0 mmHg MV Velocity Time Integral 41.0 cm MV Area PHT 1.2 cm??? Mitral E Point Velocity 100.8 cm/s Mitral A Point Velocity 0.6 cm/s Mitral E to A Ratio 177.1 MV Deceleration Time 626.9 ms FINDINGS Left Ventricle Left ventricular ejection fraction is estimated at 30-35 %. Mildly increased septal wall thickness. Mildly increased left ventricular diastolic volume. Severely increased left ventricular systolic volume. Moderately decreased left ventricular ejection fraction. Right Ventricle Right ventricular dilatation. Generalized right ventricular hypokinesis. Right Atrium Moderate right atrial dilatation. Left Atrium Moderate left atrial dilatation. Mitral Valve Mitral Valve clip seen. MV mean PG 3 mmHg. Mild mitral regurgitation. Aortic Valve Trileaflet aortic valve. No aortic stenosis. Severe aortic regurgitation. Eccentric aortic regurgitation jet directed at the mitral valve. Tricuspid Valve No tricuspid stenosis. Mild tricuspid regurgitation. Pulmonic Valve Pulmonic valve not well visualized. Pericardium Normal pericardium. No pericardial or pleural effusion. Aorta Severely dilated proximal ascending aorta (tube), 5.0 cm. [place] type A (proximal) dissection. CONCLUSIONS Impaired LV function with EF between 30 to 35% Trileaflet aortic valve with severe AI and eccentric jet Ascending aorta with dissection was identified which is known from before Previewed by: Dr. Sergo Morales MD (Electronically Signed) Final Date: 14 January 2025 12:32
[2025-01-14 15:05] VITALS: BMI 24.1
[2025-01-14] MEDS: LORazepam 0.5 MG TAB PO PRN (20:00)
[2025-01-15 08:10] LABS: Anion Gap 8.10 mmol/L (4.00-12.00); Blood Urea Nitrogen 15.1 mg/dL (9.0-27.0); Carbon Dioxide 22.9 mmol/L (21.6-31.8); Chloride 107 mmol/L (96-109); Glucose 83 mg/dL (70-110); Potassium 4.8 mmol/L (3.5-5.5); Sodium 138 mmol/L (135-145)
[2025-01-15 08:11] LABS: BUN/Creat Ratio 16.78 Ratio (12.00-20.00); Calcium 7.8 mg/dL (8.7-10.3); Magnesium 1.5 mg/dL (1.5-2.4)
[2025-01-15 08:52] LABS: Basophils # (A) 0.03 X 10*3/uL (0.00-0.10); Basophils % (A) 0.9 %; Eosinophils # (A) 0.21 X 10*3/uL (0.04-0.35); Eosinophils % (A) 6.2 %; HCT 35.0 % (39.6-50.0); HGB 11.3 g/dL (13.0-17.0); Immature Grans, Automated 0.60 %; Lymphocytes # (A) 1.40 X 10*3/uL (0.90-5.00); Lymphocytes % (A) 41.2 %; MCH 31.1 pg (27.0-32.0); MCHC 32.3 g/dL (32.0-37.0); MCV 96.4 FL (80.0-97.0); Macrocytosis (M) 2+ (None Seen); Monocytes # (A) 0.27 X 10*3/uL (0.20-1.00); Monocytes % (A) 7.9 %; NRBC Per 100 WBC 0 X 10*3/uL (0.00-0.01); Neutrophils # (A) 1.47 X 10*3/uL (1.80-7.70); Neutrophils % (A) 43.2 %; Platelet Count 88 X 10*3/uL (140-440); RBC 3.63 X 10*6/uL (4.40-5.60); RDW 17.7 % (11.5-14.5); WBC 3.40 X 10*3/uL (4.50-10.00)
[2025-01-15 10:17] LABS: HIV-1 RNA DETECTED (Not detected); HIV-1 RNA, Quant 31 Copies/mL (<20); LOG HIV Copies/mL 1.49 (<1.30)
[2025-01-15 10:53] LABS: T Helper Cell (CD4) 536.0 cell/ul (443-1471); T Helper Cell (CD4) % 25.0 % (35-66); T Suppressor Cell (CD8) 1375.0 cell/ul (190-832); T Suppressor Cell (CD8) % 64.0 % (9-37); T4/T8 Ratio (CD4:CD8) 0.4 (1.0-3.7)
--- NOTE | 2025-01-15 12:08 | P.DS ---
Providers Date of admission: 01/13/25 21:01 Attending physician: Gurinder Katz MD Consults: 01/13/25 20:57 Consult Physician Urgent Consulting Provider: Psychiatry - [facility] Psych[facility]ry Consult Reason/Comments: depression Do you want consulting provider notified?: Yes Consult Physician Urgent Consulting Provider: [facility] Consult Reason/Comments: afib, hx afib Do you want consulting provider notified?: Yes Primary care physician: [facility] Course: Discharge Diagnosis: Acute alcohol intoxication, alcohol withdrawal Alcohol abuse Paroxysmal A-fib with RVR, now in sinus History of CAD Chronic systolic heart failure, not in acute exacerbation Chronic ascending aortic dissection and ascending aortic aneurysm following at [facility] [place], stable HTN HLD HIV Chronic diarrhea Hospital Course: 64-year-old male with past medical history of HIV on antiretroviral, paroxysmal A-fib on Eliquis, HFrEF, history of mitral valve repair, chronic type a aortic dissection, hypothyroidism, depression, anxiety, alcohol abuse, diarrhea, who presented to the ER with alcohol intoxication, chest pain. He described the chest pain as generalized nonreproducible with no radiation. Pain is intermittent, and usually peaks in the morning but subsides after about an hour. Patient has significant cardiac history and he follows up with his road gang supervisor Dr. Beal. Patient also mentioned that he was supposed to have a heart cath in [facility] [place] last month, but he stated that they called him and canceled the procedure because of high risk of mortality with all his comorbidities. Since then, patient has been depressed and has been binge drinking. During his previous hospitalizations patient had alcohol intoxication and withdrawal, was also complaining of inability to undergo any further treatment for his cardiac condition at [facility] [place]. On admission his heart rate was in 112, he was afebrile with stable but soft blood pressure. Blood work showed normal WBC count hemoglobin of 12.8, sodium and potassium WNL, creatinine normal, magnesium low 1.3, troponin negative. Serum alcohol level was 414 Now admitted as inpatient for further management of alcohol intoxication, withdrawal, chest pain, A-fib with RVR. Per chart review, patient expressed suicidal ideations, psychiatry consulted, cardiology on board. 01/15: Patient was seen and examined at bedside, his withdrawal is controlled, he feels well, chronic tremors present. He was able to tolerate oral diet, has good appetite, was witnessed to ambulate with physical therapy with walker, did well. He already has home PT set up. Cardiology decreased home amiodarone to 100 mg daily, recommended no further changes. TTE showed EF of 30 to 35%, severe aortic regurgitation this was seen on previous echo in 2023, aortic disse ction also known from before cleared for discharge from cardiology standpoint. Seen by psychiatry who just some anxiety medication changes with patient declined, no indications for inpatient psych hospitalization. Psychiatry signed off. Patient is optimized for discharge, follow-up with PCP, cardiology on discharge Patient seen and examined at bedside. Vital signs reviewed and stable. General: Nontoxic, no distress, appears at stated age Derm: Warm, dry Head: Atraumatic, normocephalic, symmetric Eyes: EOMI, no lid lag, anicteric sclera Mouth: No lip lesion, mucus membranes moist Cardiovascular: S1S2 reg, no murmur Lungs: CTA bilateral, no rhonchi, no rales, no accessory muscle use Abdominal: Soft, nontender to palpation, no guarding, no appreciable organomegaly Ext: No gross muscle atrophy, no edema, no contractures Neuro: CN II-XI grossly intact, no focal neuro deficits Psych: Alert, oriented, appropriate affect A total of 40 minutes of time were spent preparing this complex discharge summary. Patient was discharged on 01/15. Patient Condition at Discharge: Stable Plan - Discharge Summary Discharge Rx Participant: No New Discharge Prescriptions: New Amiodarone [Cordarone] 100 mg PO DAILY #30 tab Thiamine [Vitamin B-1] 100 mg PO DAILY #30 tab Continue Darunavir/Cobicistat [Prezcobix 800 mg-150 mg Tablet] 1 tab PO DAILY Albuterol Sulfate [Albuterol Sulfate Hfa] 2 puff INHALATION RT-Q6H PRN PRN Reason: Shortness Of Breath Sacubitril/Valsartan [Entresto 24 mg-26 mg Tablet] 1 tab PO BID Apixaban [Eliquis] 2.5 mg PO BID Rosuvastatin [Crestor] 20 mg PO DAILY rOPINIRole HCL [Requip] 0.5 mg PO TID PRN PRN Reason: RESTLESS LEGS Bumetanide [BUMEX] 1 mg PO DAILY QUEtiapine FUMARATE [SEROquel] 25 mg PO HS Pantoprazole [Protonix] 40 mg PO DAILY Bictegrav/Emtricit/Tenofov Ala [Biktarvy 50-200-25 mg Tablet] 1 tab PO DAILY Empagliflozin [Jardiance] 10 mg PO DAILY hydrOXYzine HCL [Atarax] 25 mg PO TID PRN PRN Reason: Itching Folic Acid 1 mg PO DAILY Magnesium Oxide [Mag-Ox] 400 mg PO DAILY Metoprolol Tartrate [Lopressor] 50 mg PO BID HYDROcodone/APAP 5-325MG [Parnell 5-325] 1 tab PO BID PRN PRN Reason: Pain Discontinued Amiodarone [Cordarone] 200 mg PO DAILY Torsemide [Demadex] 40 mg PO DAILY Discharge Medication List Bictegrav/Emtricit/Tenofov Ala [Biktarvy 50-200-25 mg Tablet] 1 tab PO DAILY 09/07/21 [History] Darunavir/Cobicistat [Prezcobix 800 mg-150 mg Tablet] 1 tab PO DAILY 09/07/22 [History] Albuterol Sulfate [Albuterol Sulfate Hfa] 2 puff INHALATION RT-Q6H PRN 12/27/23 [History] Empagliflozin [Jardiance] 10 mg PO DAILY 12/27/23 [History] Sacubitril/Valsartan [Entresto 24 mg-26 mg Tablet] 1 tab PO BID 12/27/23 [History] Apixaban [Eliquis] 2.5 mg PO BID 04/03/24 [History] Rosuvastatin [Crestor] 20 mg PO DAILY 05/23/24 [History] Bumetanide [BUMEX] 1 mg PO DAILY 01/13/25 [History] Folic Acid 1 mg PO DAILY 01/13/25 [History] HYDROcodone/APAP 5-325MG [Parnell 5-325] 1 tab PO BID PRN 01/13/25 [History] Magnesium Oxide [Mag-Ox] 400 mg PO DAILY 01/13/25 [History] Metoprolol Tartrate [Lopressor] 50 mg PO BID 01/13/25 [History] Pantoprazole [Protonix] 40 mg PO DAILY 01/13/25 [History] QUEtiapine FUMARATE [SEROquel] 25 mg PO HS 01/13/25 [History] hydrOXYzine HCL [Atarax] 25 mg PO TID PRN 07/15/25 [History] rOPINIRole HCL [Requip] 0.5 mg PO TID PRN 01/13/25 [History] Amiodarone [Cordarone] 100 mg PO DAILY #30 tab 01/15/25 [Rx] Thiamine [Vitamin B-1] 100 mg PO DAILY #30 tab 01/15/25 [Rx] Follow up Appointment(s)/Referral(s): Girma Malone MD [Primary Care Provider] - 1-2 days Sergo Morales MD [STAFF PHYSICIAN] - 1 Week Patient Instructions/Handouts: Alcohol Intoxication (DC) Activity/Diet/Wound Care/Special Instructions: Please, follow-up with your primary care physician, follow-up with your primary road gang supervisor. Strongly recommend abstinence from alcohol. Take your medications as prescribed, check your blood pressure regularly, keep a log of the readings to discuss with your medical team. Discharge/Stand Alone Forms: AA Meetings [place] Discharge Disposition: HOME WITH HOME HEALTH SERVICES
--- NOTE | 2025-01-15 12:31 | P.PN ---
Subjective HISTORY OF PRESENT ILLNESS: This is a 64-year-old male with a past medical history significant for hypertension, hyperlipidemia, HIV, cardiomyopathy, paroxysmal atrial fibrillation, PE, and alcohol abuse. Patient follows in the office with Dr. Jessica strickland. We have been asked to see the patient in consultation for atrial fibrillation. Patient examined at the bedside. Patient presented to the hospital with a chief complaint of chest discomfort and palpitations. Patient states over the course of the past 4 days he has consumed 2 fifths of liquor. Patient was found to be in A-fib with RVR. He subsequently converted to sinus mechanism and is maintaining sinus mechanism this morning. DIAGNOSTICS: - EKG reveals A-fib with RVR. - Chest xray changes without acute pulmonary process - Laboratory data: Troponin negative x 3. Serum alcohol 418. - Current home cardiac medications include amiodarone 200 mg daily, Eliquis 2.5 mg twice a day, Jardiance 10 mg daily, Bumex 1 mg daily, metoprolol titrate 50 mg twice daily, Entresto 24-26 mg twice a day, Demadex 40 mg daily, rosuvastatin 20 mg daily. - Most recent echocardiogram obtained in April 2024 revealed ejection fraction 35 to 40% - Cardiac catheterization history: November 2020 revealing fixed defect of moderate size and moderate intensity involving the inferior wall of the left ventricle, associated with normal wall motion and likely representing diaphragmatic attenuation 01/15/2025 Patient examined this morning at the bedside. Patient currently denies chest pain or pressure. She denies shortness of breath. Echocardiogram completed revealing ejection fraction 30 to 35%, mild MR, severe aortic regurgitation, mild TR PHYSICAL EXAM: VITAL SIGNS: Reviewed. GENERAL: Well-developed in no acute distress. HEENT: Head is normocephalic. Pupils are equal, round. Sclerae anicteric. Mucous membranes of the mouth are moist. Neck supple. No JVD or thyromegaly LUNGS: Respirations even and unlabored. Lungs essentially clear to auscultation bilaterally. HEART: Regular rate and rhythm. S1 and S2 heard. ABDOMEN: Soft. Nondistended. Nontender. EXTREMITIES: Normal range of motion. No clubbing or cyanosis. Peripheral pulses intact. No lower extremity edema NEUROLOGIC: Awake and alert. Oriented x 3. ASSESSMENT: Acute alcohol intoxication Paroxysmal atrial fibrillation with RVR, currently maintaining sinus mechanism History of CAD without stenting Nonischemic cardiomyopathy History of pulmonary embolism Severe aortic regurgitation Chronic ascending aortic dissection and ascending aortic aneurysm, evaluated at [facility], treated conservatively Hypertension Hyperlipidemia History of HIV PLAN: 2D echo obtained and reviewed. Patient with severe AI. Not a candidate for valve replacement at this time. Abstinence from alcohol recommended Patient is currently stable for discharge from a cardiac standpoint Patient to follow-up in the office with Dr. Morales Nurse practitioner note has been reviewed by physician. Signing provider agrees with the documented findings, assessment, and plan of care documented by [facility] NEED CONSULTANT as a scribe. Objective - Vital Signs Vital signs: Vital Signs Temp 97.9 F 01/15/25 07:00 Pulse 59 L 01/15/25 07:00 Resp 16 01/15/25 07:00 BP 94/54 01/15/25 07:00 Pulse Ox 97 01/15/25 07:00 FiO2 Intake & Output 01/14/25 01/15/25 01/15/25 18:59 06:59 18:59 Intake Total 236 Output Total 300 Balance 236 -300 Weight 69.853 kg Intake: Oral 236 Output: Urine 300 Other: # Voids 2 - Labs CBC & Chem 7: 01/15/25 04:28 01/15/25 04:28 Labs: Abnormal Lab Results - Last 24 Hours (Table) 01/14/25 01/14/25 01/15/25 Range/Units 00:01 00:01 04:28 WBC 3.40 L (4.50-10.00) X 10*3/uL RBC 3.63 L (4.40-5.60) X 10*6/uL Hgb 11.3 L (13.0-17.0) g/dL Hct 35.0 L (39.6-50.0) % RDW 17.7 H (11.5-14.5) % Plt Count 88 L (140-440) X 10*3/uL Neutrophils # 1.47 L (1.80-7.70) X 10*3/uL Macrocytosis (manual) 2+ A (None Seen) Calcium (8.7-10.3) mg/dL T-Suppressor Cells 1375 H (190-832) cell/ul % CD4 [place] 25 L (35-66) % CD4/CD8 Ratio 0.4 L (1.0-3.7) % CD8 Suppressor 64 H (9-37) % HIV-1 RNA Quant 31 H (<20) Copies/mL HIV RNA logcopies/mL Ult 1.49 H (<1.30) HIV-1 RNA (PCR) DETECTED A (Not detected) 01/15/25 Range/Units 04:28 WBC (4.50-10.00) X 10*3/uL RBC (4.40-5.60) X 10*6/uL Hgb (13.0-17.0) g/dL Hct (39.6-50.0) % RDW (11.5-14.5) % Plt Count (140-440) X 10*3/uL Neutrophils # (1.80-7.70) X 10*3/uL Macrocytosis (manual) (None Seen) Calcium 7.8 L (8.7-10.3) mg/dL T-Suppressor Cells (190-832) cell/ul % CD4 [place] (35-66) % CD4/CD8 Ratio (1.0-3.7) % CD8 Suppressor (9-37) % HIV-1 RNA Quant (<20) Copies/mL HIV RNA logcopies/mL Ult (<1.30) HIV-1 RNA (PCR) (Not detected)
[2025-01-15 14:51] VITALS: BP 88/50; PULSE 68; RESP 15; TEMP 97.7
[2025-01-16] MEDS ORDERED: THIAMINE 100 MG TAB PO SCH (09:00)
== END 2025-01-15 16:26 | disposition home health service (06) ==
LOC: EC 17:35 → INTOOBSV 21:01 → 6NMEDSUR 21:01 → UNDODISIN 01-15 16:26
PROVIDERS: ADMIT Internal Medicine; ATTEND Internal Medicine
PROC: HZ2ZZZZ Detoxification Services for Substance Abuse Treatment (ICD-10-PCS; principal; 2025-01-13)
DX: I48.0 Paroxysmal atrial fibrillation (principal); F10.229 Alcohol dependence with intoxication, unspecified; F10.239 Alcohol dependence with withdrawal, unspecified; Z66 Do not resuscitate; I11.0 Hypertensive heart disease with heart failure; I50.22 Chronic systolic (congestive) heart failure; Z21 Asymptomatic human immunodeficiency virus [HIV] infection status; F32.A Depression, unspecified; F41.1 Generalized anxiety disorder; E03.9 Hypothyroidism, unspecified; I71.21 Aneurysm of the ascending aorta, without rupture; I42.8 Other cardiomyopathies; I25.10 Atherosclerotic heart disease of native coronary artery without angina pectoris; E78.5 Hyperlipidemia, unspecified; I71.00 Dissection of unspecified site of aorta; I35.1 Nonrheumatic aortic (valve) insufficiency; R45.851 Suicidal ideations; K52.9 Noninfective gastroenteritis and colitis, unspecified; Y90.8 Blood alcohol level of 240 mg/100 ml or more; Z51.5 Encounter for palliative care; Z79.01 Long term (current) use of anticoagulants; Z79.84 Long term (current) use of oral hypoglycemic drugs; Z79.899 Other long term (current) drug therapy; Z99.3 Dependence on wheelchair; Z88.1 Allergy status to other antibiotic agents; Z88.2 Allergy status to sulfonamides; Z88.5 Allergy status to narcotic agent; Z88.8 Allergy status to other drugs, medicaments and biological substances; Z86.711 Personal history of pulmonary embolism; Z91.51 Personal history of suicidal behavior; Z96.642 Presence of left artificial hip joint; Z87.891 Personal history of nicotine dependence
CPT/HCPCS: 96376; 96361; 96374; 96375; 99285; 36415; 93005 ×2; 93306; 97161; 97165; 87536; 80053 ×2; 80048; 86360; 83735 ×2; 84484 ×2; 85025 ×3; 85610; 85730; 80306; 80320 ×2; 71046; G0378 ×3; J3411 ×3; J2405 ×2; Q9957; J3475; 96365; 96366